=== PATIENT | male | born 1955 | race Caucasian/White ===

== ENCOUNTER 2016-08-26 15:33 | Inpatient (IN) | payer OTHER ==
[~2016-08-26] VITALS: Ht 177.8 cm; Wt 66.0 kg
[2016-08-26] VITALS (14 sets, daily range): BP systolic 90–213; BP diastolic 74–120; PULSE 78–107; RESP 16–18; TEMP 97.9–98.2; O2SAT 93–100
--- NOTE | 2016-08-26 15:56 | RADRPT ---
EXAM DATE/TIME: 08/26/2016 15:41 [facility] COMPARISON: No previous studies available for comparison. INDICATIONS : Stroke alert; right sided weakness. RADIATION DOSE: 56.35 CTDIvol (mGy) This report was called by Dr. Zaldivar to Dr. Galicia at 1552 hrs. MEDICAL HISTORY : Non-responsive. SURGICAL HISTORY : Non-responsive. ENCOUNTER: Initial ACUITY: 1 day PAIN SCALE: Non-responsive LOCATION: cranial TECHNIQUE: Multiple contiguous axial images were obtained of the head. Using automated exposure control and adj ustment of the mA and/or kV according to patient size, radiation dose was kept as low as reasonably a chievable to obtain optimal diagnostic quality images. FINDINGS: There is a large high density acute intraparenchymal hemorrhage centered in the left basal gangl ia measuring up to 3.4 x 3.2 cm in diameter. There is extension into the adjacent left lateral ventri antony. The high density hemorrhage fills the majority of the left lateral ventricle and there is surrou nding edema in these regions. There is mild mass effect and midline shift to the right of approximate ly 5 mm. Periventricular white matter lucencies are present. The posterior fossa and brainstem are in tact. There is mild asymmetry at the level of the suprasellar cisterns. The coastal thickening is not ed in the ethmoidal air cells bilaterally. The bone windows are otherwise unremarkable. CONCLUSION: 1. Large intraparenchymal hemorrhage in the left basal ganglia with extension into left lateral ventr icle. 2. Surrounding edema and mild midline shift to the right. Frederick Zaldivar MD on August 26, 2016 at 15:50 Board Certified Radiologist. This report was verified electronically.
[2016-08-26] MEDS ORDERED: niCARdipine INJ 25 MG in SODIUM CHLOR 0.9% 250 ML INJ 250 ML IV ONE (16:00)
[2016-08-26] MEDS ORDERED: SUCCINYLCHOLINE CHLORIDE 200 MG/10 ML VIAL IV PUSH ONE (16:00)
[2016-08-26] MEDS ORDERED: ETOMIDATE 20 MG/10 ML VIAL IV PUSH ONE (16:00)
[2016-08-26] MEDS ORDERED: MANNITOL INJ 250 ML IV ONE (16:00)
[2016-08-26 16:04] LABS: I-STAT POTASSIUM 2.8 MMOL/L (3.5-4.9)
[2016-08-26 16:08] LABS: AUTOMATED NEUTROPHIL # 6.3 TH/MM3 (1.8-7.7); BASOPHIL # 0.1 TH/MM3 (0-0.2); BASOPHIL % 0.6 % (0.0-2.0); EOSINOPHIL # 0.1 TH/MM3 (0-0.4); EOSINOPHIL % 0.7 % (0.0-4.0); HEMATOCRIT 40.6 % (39.0-51.0); HEMO FLAGS DIFF FINAL; LYMPH % 20.1 % (9.0-44.0); LYMPHOCYTE # 1.8 TH/MM3 (1.0-4.8); MEAN CELL VOLUME 92.2 FL (80.0-100.0); MEAN CORPUSCULAR HEMOGLOBIN 32.9 PG (27.0-34.0); MEAN CORPUSCULAR HGB CONC 35.7 % (32.0-36.0); MONO % 6.8 % (0.0-8.0); NEUT % 71.8 % (16.0-70.0); PLATELET COUNT 164 TH/MM3 (150-450); RED CELL DISTRIBUTION WIDTH 12.7 % (11.6-17.2); WHITE BLOOD COUNT 8.8 TH/MM3 (4.0-11.0)
[2016-08-26 16:10] LABS: APTT (PATIENT) 23.4 SEC (24.3-30.1)
[2016-08-26] MEDS: PROPOFOL 1000 MG/100 ML INJ 100 ML ONE ×2 (16:18→17:12)
--- NOTE | 2016-08-26 16:47 | RADRPT ---
EXAM DATE/TIME: 08/26/2016 14:37 [facility] COMPARISON: No previous studies available for comparison. INDICATIONS : Post intubation MEDICAL HISTORY : stroke SURGICAL HISTORY : unobtainable ENCOUNTER: Initial ACUITY: 1 day PAIN SCORE: Non-responsive. LOCATION: Bilateral chest FINDINGS: A single AP supine view of the chest was obtained and demonstrates an endotracheal tube in place with the tip roughly 5 cm above the chela. The study is Midinspiratory crowding of the lung vasculature and no infiltrate or effusion. The heart size is within normal limits. The bony thorax is intact. The re are multiple overlying electrocardiogram leads. CONCLUSION: 1. Status post intubation with the endotracheal tube tip approximately 5 cm above the chela. 2. Midinspiratory study with crowding of the lung vasculature. Frederick Zaldivar MD on August 26, 2016 at 16:44 Board Certified Radiologist. This report was verified electronically.
--- NOTE | 2016-08-26 16:48 | PD ---
HPI Chief Complaint: Stroke Alert Time Seen by Provider: 15:43 Travel History International Travel<30 days: No Contact w/Intl Traveler<30days: No Traveled to known affect area: No History of Present Illness HPI Middle age male presents as stroke alert with right sided weakness and facial droop 1 hour prior to arrival. Pt was unable to move right upper or lower extremity and with dysarthria. NIH stroke scale was 22. Pt was very hypertensive with BP of 175/118. Pt was given aspirin 162mg PO by his boss prior to arrival. Unable to obtain any further history. PFSH Past Medical History Diminished Hearing: No Social History Alcohol Use: No Tobacco Use: No Substance Use: No Allergies-Medications (Allergen,Severity, Reaction): Coded Allergies: Iodinated Contrast Media (Verified Allergy, Unknown, syncopal episodes, 08/27/16) Review of Systems ROS Limitations: Altered Mental Status Physical Exam Narrative GENERAL: Middle age male in moderate distress. SKIN: Warm and dry. HEAD: Atraumatic. Normocephalic. EYES: Pupils equal and round. No scleral icterus. No injection or drainage. ENT: No nasal bleeding or discharge. Mucous membranes pink and moist. NECK: Trachea midline. No JVD. CARDIOVASCULAR: Regular rate and rhythm. No murmur appreciated. RESPIRATORY: No accessory muscle use. Clear to auscultation. Breath sounds equal bilaterally. GASTROINTESTINAL: Abdomen soft, non-tender, nondistended. Hepatic and splenic margins not palpable. MUSCULOSKELETAL: No obvious deformities. No clubbing. No cyanosis. No edema. NEUROLOGICAL: Awake and following command. NIH stroke 22. Severe dysarthria. Unable to move right upper and lower extremity. Decreased muscle strength in left lower extremity. Data Data Last Documented VS Vital Signs Date Time Temp Pulse Resp B/P Pulse Ox O2 Delivery O2 Flow Rate FiO2 08/26/16 16:49 92 213/120 93 Nasal Cannula 3 08/26/16 16:15 50 08/26/16 16:13 98.2 08/26/16 15:38 18 Orders Diet Npo (08/26/16 Dinner) Activity Bed Rest (08/26/16 ) Electrocardiogram (08/26/16 ) I-Stat Creatinine (08/26/16 15:43) I-Stat Profile (08/26/16 15:43) Prothrombin Time / Inr (Pt) (08/26/16 15:43) Act Partial Throm Time (Ptt) (08/26/16 15:43) Complete Blood Count With Diff (08/26/16 15:43) Creatine Kinase (Cpk) (08/26/16 15:43) Troponin I (08/26/16 15:43) Ua Includes Microscopic (08/26/16 15:43) Type And Screen (08/26/16 15:43) Ct Brain W/O Iv Contrast(Rout) (08/26/16 ) Blood Glucose (08/26/16 15:43) Ecg Monitoring (08/26/16 15:43) Neuro Checks Q2HX12,Q4H (08/26/16 15:43) Nursing Bedside Swallow Assess .ONCE (08/26/16 15:43) Iv Access Insert/Monitor (08/26/16 15:43) NPO (08/26/16 15:43) Oximetry (08/26/16 15:43) Oxygen Administration (08/26/16 15:43) Resp Oxygen Simeon C Titrat 1-4 L (08/26/16 15:43) Cath For Specimen (08/26/16 15:43) Etomidate Inj (Amidate Inj) (08/26/16 16:00) Succinylcholine Inj (Quelicin Inj) (08/26/16 16:00) Nicardipine Inj (Cardene Inj) (08/26/16 16:00) Mannitol Inj (Osmitrol Inj) (08/26/16 16:00) Propofol 1000 Mg/100 Ml Inj (Diprivan 10 (08/26/16 16:18) Chest, Single Ap (08/26/16 ) Propofol 1000 Mg/100 Ml Inj (Diprivan 10 (08/26/16 16:30) Potassium Chlor 20 Meq Premix (Kcl 20 Me (08/26/16 17:15) Potassium Chloride (Kcl) (08/26/16 17:15) Evelyn-Gastric Tube Insert/Mon (08/26/16 17:03) Admit Order (Ed Use Only) (08/26/16 17:31) Consult Neurosurgery (08/26/16 ) Labs Laboratory Tests Test 08/26/16 08/26/16 08/26/16 15:38 15:48 16:44 White Blood Count 8.8 TH/MM3 Red Blood Count 4.40 MIL/MM3 Hemoglobin 14.5 GM/DL Bedside Hemoglobin 13.9 G/DL Hematocrit 40.6 % Bedside Hematocrit 41.0 % Mean Corpuscular Volume 92.2 FL Mean Corpuscular Hemoglobin 32.9 PG Mean Corpuscular Hemoglobin 35.7 % Concent Red Cell Distribution Width 12.7 % Platelet Count 164 TH/MM3 Mean Platelet Volume 10.9 FL Neutrophils (%) (Auto) 71.8 % Lymphocytes (%) (Auto) 20.1 % Monocytes (%) (Auto) 6.8 % Eosinophils (%) (Auto) 0.7 % Basophils (%) (Auto) 0.6 % Neutrophils # (Auto) 6.3 TH/MM3 Lymphocytes # (Auto) 1.8 TH/MM3 Monocytes # (Auto) 0.6 TH/MM3 Eosinophils # (Auto) 0.1 TH/MM3 Basophils # (Auto) 0.1 TH/MM3 CBC Comment DIFF FINAL Differential Comment Prothrombin Time 11.0 SEC Prothromb Time International 1.0 RATIO Ratio Activated Partial 23.4 SEC Thromboplast Time Bedside Sodium 143 MMOL/L Sodium Level 141 MEQ/L Bedside Potassium 2.8 MMOL/L Potassium Level 2.8 MEQ/L Bedside Chloride 106 MMOL/L Chloride Level 106 MEQ/L Carbon Dioxide Level 24.4 MEQ/L Anion Gap 11 MEQ/L Bedside Blood Urea Nitrogen 17 MG/DL Blood Urea Nitrogen 17 MG/DL Creatinine 1.01 MG/DL Bedside Creatinine 1.0 MG/DL Estimat Glomerular Filtration 64 ML/MIN Rate Bedside Glucose 114 MG/DL Random Glucose 112 MG/DL Calcium Level 9.0 MG/DL Total Creatine Kinase 208 U/L Troponin I 0.03 NG/ML Blood Type A POSITIVE Antibody Screen NEGATIVE Urine Color LIGHT-YELLOW Urine Turbidity CLEAR Urine pH 7.5 Urine Specific [place] 1.012 Urine Protein 30 mg/dL Urine Glucose (UA) TRACE mg/dL Urine Ketones 10 mg/dL Urine Occult Blood TRACE Urine Nitrite NEG Urine Bilirubin NEG Urine Urobilinogen LESS THAN 2.0 MG/DL Urine Leukocyte Esterase NEG Urine RBC 2 /hpf Urine WBC LESS THAN 1 /hpf Microscopic Urinalysis Comment Urine Opiates Screen NEG Urine Barbiturates Screen NEG Urine Amphetamines Screen NEG Urine Benzodiazepines Screen NEG Urine Cocaine Screen NEG Urine Cannabinoids Screen NEG MDM Medical Decision Making Medical Screen Exam Complete: Yes Emergency Medical Condition: Yes Interpretation(s) EKG: NSR 84bpm. LAD. Q wave III, aVF. LVH. No ST segment elevation or depression. Differential Diagnosis ICH vs. CVA vs. hypertensive emergency Narrative Course Middle age male with HTN presents with hypertensive bleed. CT brain showed large intraparenchymal hemorrhage in left basal ganglia with extension into left lateral ventricle. Surrounding edema and mild midline shift to the right. Discuss with neurosurgeon Dr. Croft who states there is no neurosurgical intervention and to admit to ICU. Pt intubated to protect airway with etomidate and succinylcholine. There was a complication with dislodging a tooth which was communicated to family and latin professor. CXR showed ET tube 5cm above chela. Pt place on propofol drip and nicardipine drip. BP improving. Pt also given mannitol. Labs reviewed, no leukocytosis. K: 2.8, replaced with 20mEq KCl. Also with oral KCl through OG tube. Troponin 0.03. Glucose 114. Discussed with pt's daughter who is next of kin but living in [place] Mrs. Haritha Ruiz [phone] and she is the health proxy. Also discussed with Haritha's aunt Mrs. Ana Paula Ruiz [phone] who is on her way here from [facility]. Confirmed with daughter that her mother is not in this country at this time. Pt's name is Rafy Minor. Discussed with Dr. Melton who states pt will be admitted to Dr. Cameron. Critical Care Narrative Aggregate critical care time was 50 minutes. Time to perform other separately billable procedures was not included in the critical care time. My time did not include minutes spent treating any other patients simultaneously or on activities that did not directly contribute to the patient's treatment. The services I provided to this patient were to treat and/or prevent clinically significant deterioration that could result in: cardiovascular collapse or . I provided critical care services requiring my management, as noted below: Chart data review, documentation time, medication orders and management, vital sign assessments/reviewing monitor data, ordering and reviewing lab tests, ordering and interpreting/reviewing x-rays and diagnostic studies, care of the patient and discussion of the patient with the admitting physicians. Procedures Procedure Narrative The patient was put in optimal position for the procedure. Rapid sequence intubation was initiated by me using 20 milligrams of etomidate IV and 100 milligrams of succinylcholine IV. The patient was intubated with a 7.5 cuffed endotracheal tube. Tube placement was confirmed by visualization of the tube and balloon passing through the cords, capnometry and subsequent chest x-ray. Breath sounds were equal and well aerated bilaterally postintubation. No breath sounds over stomach. Patient tolerated procedure well. There was a complication with the intubation. Bridge was removed. There was a tooth in right upper region that broke off and was retrieved via Wilfredo forceps. There was some bleeding in the tooth socket. Informed pt's daughter and her aunt about the complication via telephone. Diagnosis Primary Impression: ICH (intracerebral hemorrhage) Qualified Code: I61.0 - Nontraumatic subcortical hemorrhage of left cerebral hemisphere Admitting Information Admitting Physician Requests: Margarita De La Rosa DO Aug 26, 2016 16:48
[2016-08-26 17:09] LABS: BLOOD, URINE TRACE (NEG); GLUCOSE,URINE TRACE mg/dL (NEG); KETONE, URINE 10 mg/dL (NEG); NITRITE,URINE NEG (NEG); PH, URINE 7.5 (5.0-8.5); URINE COLOR LIGHT-YELLOW (YELLW/STRAW)
[2016-08-26] MEDS ORDERED: POTASSIUM CHLOR 20 MEQ PREMIX 100 ML IV ONE (17:15)
[2016-08-26] MEDS ORDERED: POTASSIUM CHLORIDE 20 MEQ CONTROLLED RELEASE TAB PO ONE (17:15)
[2016-08-26] MEDS: PROPOFOL 1000 MG/100 ML INJ 100 ML IV SCH ×2 (17:17→19:05)
[2016-08-26 17:59] LABS: BLOOD GAS BASE EXCESS -0.3 mmol/L (-2-2); BLOOD GAS CARBOXYHEMOGLOBIN 2.2 % (0-4); BLOOD GAS HCO3 24 mmol/L (22-26); BLOOD GAS METHEMOGLOBIN 2.1 % (0-2); BLOOD GAS O2 HGB SATURATION 94 % (90-100); BLOOD GAS OXYGEN CONTENT 19.2 Vol % (12.0-20.0); BLOOD GAS PCO2 37 mmHg (38-42); BLOOD GAS PO2 109 mmHG (61-120); BLOOD GAS TOTAL HGB 14.5 G/DL (12.0-16.0); CRITICAL VALUE NO; DRAW SITE RT RADIAL; FIO2 50 %; NUMBER OF ARTERIAL PUNCTURES 1; OXYGEN DEVICE VENTILATOR; STAT YES; TEMP CORR TO 98.6; VENT SETTINGS AC500/16/+5PEEP
[2016-08-26] MEDS ORDERED: LABETALOL HCL 100 MG/20 ML VIAL IV PRN (18:45)
[2016-08-26] MEDS ORDERED: MAGNESIUM SULFATE INJ 4 GM in SODIUM CHLORIDE 0.9% INJ 92 ML IV PRN (18:45)
[2016-08-26] MEDS ORDERED: CHLORHEXIDINE GLUCONATE 2 % 1 PACK (2 CLOTHS) TOP PRN (18:45)
[2016-08-26] MEDS ORDERED: MAGNESIUM OXIDE 400 MG TAB PO PRN (18:45)
[2016-08-26] MEDS ORDERED: POTASSIUM CHLOR 40 MEQ PREMIX 100 ML IV PRN (18:45)
[2016-08-26] MEDS ORDERED: SODIUM CHLORIDE 0.9% FLUSH 5 ML FLUSH IVF PRN (18:45)
[2016-08-26] MEDS ORDERED: POTASSIUM PHOSPHATE MONOBASIC 500 MG TAB PO PRN (18:45)
[2016-08-26] MEDS ORDERED: MAGNESIUM SULFATE INJ 2 GM in SODIUM CHLORIDE 0.9% INJ 96 ML IV PRN (18:45)
[2016-08-26] MEDS ORDERED: GLUCAGON 1 MG/ML VIAL OTHER PRN (18:45)
[2016-08-26] MEDS ORDERED: cloNIDine HCL 0.1 MG TAB PO PRN (18:45)
[2016-08-26] MEDS ORDERED: POTASSIUM PHOSPHATE MONOBASIC 500 MG TAB PO/TUBE PRN (18:45)
[2016-08-26] MEDS ORDERED: SODIUM PHOSPHATE INJ 30 MMOL in SODIUM CHLOR 0.9% 250 ML INJ 240 ML IV PRN (18:45)
[2016-08-26] MEDS ORDERED: MISCELLANEOUS NURSING INFORMATION XX SCH (18:45)
[2016-08-26] MEDS ORDERED: SODIUM CHLORIDE 0.9% FLUSH 5 ML FLUSH IV FLUSH PRN (18:45)
[2016-08-26] MEDS ORDERED: POTASSIUM CL 40 MEQ/30 ML LIQ UDC PO/TUBE PRN (18:45)
[2016-08-26] MEDS ORDERED: DEXTROSE 50% IN WATER 50 ML VIAL(D50) IV PUSH PRN (18:45)
[2016-08-26] MEDS ORDERED: MIDAZOLAM 100 MG/ML INJ 100 ML IV SCH (18:45)
[2016-08-26] MEDS ORDERED: ONDANSETRON HCL 4 MG/2 ML VIAL IV PRN (18:45)
--- NOTE | 2016-08-26 19:04 | HHI.HP ---
[facility] Service Critical Care Medicine Primary Care Physician Admission Diagnosis Left basal ganglia bleed Diagnosis: (1) ICH (intracerebral hemorrhage) Diagnosis: Principal (2) Hypertensive emergency Diagnosis: Principal (3) Hypokalemia Diagnosis: Principal (4) Respiratory failure Diagnosis: Principal Chief Complaint: Left basal ganglia intraparenchymal hemorrhage/right upper and lower extremity weakness Travel History International Travel<30 Days: No Contact w/Intl Traveler <30 Da: No Traveled to Known Affected Are: No History of Present Illness This is a middle-aged male. Date of admission 08/26/2016. Past medical history is unknown. His real name is Rafy Ruiz. Haritha Ruiz [phone] is the health proxy. Per ED report, patient was acute onset 1 hour prior to admission of right upper and lower extremity weakness and dysarthria. Upon presentation to the ED, patient was quite hypertensive and had decreased responsiveness. Patient was intubated by ED physician. [address] head revealed a left intraparenchymal hemorrhage/basal ganglia with extension to the lateral ventricle with a 5 mm shift to the right. Neurosurgery was consulted/Dr. Croft no intervention at present time. Your estimate the patient. Laboratories reveal potassium 2.8. Currently on Cardene drip at 15 mg an hour. Review of Systems ROS Limitations: Intubated Past Family Social History Allergies: Coded Allergies: UNOBTAINABLE (Unverified , 08/26/16) Past Medical History Unknown Past Surgical History Unknown Reported Medications Unknown Active Ordered Medications Reviewed in EMR Family History Unknown Social History Unknown Physical Exam Vital Signs Vital Signs Date Time Temp Pulse Resp B/P Pulse Ox O2 Delivery O2 Flow Rate FiO2 08/26/16 18:58 100 50 08/26/16 18:47 83 142/74 100 Ventilator 08/26/16 18:06 78 16 167/92 98 Ventilator 08/26/16 16:49 92 213/120 93 Nasal Cannula 3 08/26/16 16:15 100 50 08/26/16 16:13 98.2 107 90/112 100 Nasal Cannula 3 08/26/16 16:01 85 190/112 08/26/16 16:01 100 Nasal Cannula 3 08/26/16 15:38 98.0 87 18 175/118 99 Physical Exam GENERAL: Middle-aged male, critically ill currently orotracheally intubated SKIN: Warm and dry. HEAD: Atraumatic. Normocephalic. EYES: Pupils equal and round about 2 mm bilaterally and reactive. No scleral icterus. No injection or drainage. ENT: No nasal bleeding or discharge. Mucous membranes pink and moist. NECK: Trachea midline. No JVD. CARDIOVASCULAR: Regular rate and rhythm. S1, S2. No S4. No murmur RESPIRATORY: Clear to auscultation. Breath sounds equal bilaterally. GASTROINTESTINAL: Abdomen soft, non-tender, nondistended. Active bowel sounds are present MUSCULOSKELETAL: Extremities without difficulty peripheral edema. No obvious deformities. NEUROLOGICAL: Moving left upper and lower extremity spontaneous. Positive gag. Positive corneal reflex. Head is turned towards left. Right-sided flaccid. Laboratory Laboratory Tests Test 08/26/16 08/26/16 08/26/16 08/26/16 15:38 15:48 16:44 17:49 White Blood Count 8.8 Red Blood Count 4.40 Hemoglobin 14.5 Bedside Hemoglobin 13.9 Hematocrit 40.6 Bedside Hematocrit 41.0 Mean Corpuscular Volume 92.2 Mean Corpuscular Hemoglobin 32.9 Mean Corpuscular Hemoglobin 35.7 Concent Red Cell Distribution Width 12.7 Platelet Count 164 Mean Platelet Volume 10.9 Neutrophils (%) (Auto) 71.8 Lymphocytes (%) (Auto) 20.1 Monocytes (%) (Auto) 6.8 Eosinophils (%) (Auto) 0.7 Basophils (%) (Auto) 0.6 Neutrophils # (Auto) 6.3 Lymphocytes # (Auto) 1.8 Monocytes # (Auto) 0.6 Eosinophils # (Auto) 0.1 Basophils # (Auto) 0.1 CBC Comment DIFF FINAL Differential Comment Prothrombin Time 11.0 Prothromb Time International 1.0 Ratio Activated Partial 23.4 Thromboplast Time Bedside Sodium 143 Bedside Potassium 2.8 Bedside Chloride 106 Bedside Blood Urea Nitrogen 17 Bedside Creatinine 1.0 Bedside Glucose 114 Total Creatine Kinase 208 Troponin I 0.03 Blood Type A POSITIVE Antibody Screen NEGATIVE Urine Color LIGHT-YELLOW Urine Turbidity CLEAR Urine pH 7.5 Urine Specific [place] 1.012 Urine Protein 30 Urine Glucose (UA) TRACE Urine Ketones 10 Urine Occult Blood TRACE Urine Nitrite NEG Urine Bilirubin NEG Urine Urobilinogen LESS THAN 2.0 Urine Leukocyte Esterase NEG Urine RBC 2 Urine WBC LESS THAN 1 Microscopic Urinalysis Comment Blood Gas Puncture Site RT RADIAL Blood Gas Patient Temperature 98.6 Blood Gas HCO3 24 Blood Gas Base Excess -0.3 Blood Gas Oxygen Saturation 94 Arterial Blood pH 7.42 Arterial Blood Partial 37 Pressure CO2 Arterial Blood Partial 109 Pressure O2 Arterial Blood Oxygen Content 19.2 Arterial Blood 2.2 Carboxyhemoglobin Arterial Blood Methemoglobin 2.1 Blood Gas Hemoglobin 14.5 Oxygen Delivery Device VENTILATOR Blood Gas Ventilator Setting AC500/16/+5PEEP Blood Gas Inspired Oxygen 50 Result Diagram: 08/26/16 1538 Imaging Last Impressions Head CT 08/26/16 0000 Signed Impressions: Service Date/Time: Friday, August 26, 2016 15:41 - CONCLUSION: 1. Large intraparenchymal hemorrhage in the left basal ganglia with extension into left lateral ventricle. 2. Surrounding edema and mild midline shift to the right. Frederick Zaldivar MD Chest X-Ray 08/26/16 0000 Signed Impressions: Service Date/Time: Friday, August 26, 2016 14:37 - CONCLUSION: 1. Status post intubation with the endotracheal tube tip approximately 5 cm above the chela. 2. Midinspiratory study with crowding of the lung vasculature. Frederick Zaldivar MD Assessment and Plan Assessment and Plan Neuro/Psych: Left basal ganglia intraparenchymal hemorrhage Right frontal twist drill hole ventriculostomy placement day #0 CT head revealed left basal ganglia intraparenchymal hemorrhage 3.42 cm with eccentric left lateral ventricle. 5 mm to the right. The thyroid by neurosurgery/Dr. Croft. Right frontal twist drill hole ventriculostomy at -10 cm H2O. No upper. Recheck CT in AM. Neuro checks per protocol Goal systolic blood pressure less than 140 on Cardene drip 3% saline at 30 cc an hour. Goal 150-155 Goal end tidal CO2 30-35 Keppra 500 IV every 12 hours each prophylaxis 7 days ICP currently 12 CV: Hypertensive emergency Currently on Cardene drip at15 milligrams an hour hour. Resp: [facility] Ventilator bundle As needed bronchodilator therapy Spontaneous breathing trials when clinically indicated Follow-up chest x-ray/ABG GI: Nothing by mouth status Protonix for GI prophylaxis Colace/as needed Senokot for bowel regimen : Kern will be placed for accurate I's nose any critically ill patient Endo: Sliding-scale insulin with Accu-Cheks every 4 hours to maintain euglycemia. Low regimen Renal: Monitor renal function closely Heme: CBC/cordis within normal lives. Recheck in a.m. ID: Monitor for infection FEN: Hypokalemia Replace per ICU electrolyte protocol. MSK: PT evaluate and treat Access - Right IJ CVL day #1 Prophylaxis - GI - Protonix - DVT - SCDs/pharmacological prophylaxis contraindicated with intracranial hemorrhage Critical Care: The total critical care time was 75 minutes. Time to perform other separately billable procedures was not included in the critical care time. Code Status Full code Discussed Condition With ED physician Dr. Galicia. Care plan discussed all questions answered. Dr. Croft at bedside. Problem Qualifiers (1) ICH (intracerebral hemorrhage): Qualified Code: I61.0 - Nontraumatic subcortical hemorrhage of left cerebral hemisphere (2) Respiratory failure: Qualified Code: J96.00 - Acute respiratory failure, unspecified whether with hypoxia or hypercapnia Ellis Bright MD Aug 26, 2016 19:04
--- NOTE | 2016-08-26 19:18 | RADRPT ---
EXAM DATE/TIME: 08/26/2016 16:46 [facility] COMPARISON: CHEST SINGLE AP, August 26, 2016, 14:37. INDICATIONS : Evaluate central line placement. MEDICAL HISTORY : Unobtainable. SURGICAL HISTORY : Unobtainable. ENCOUNTER: Initial ACUITY: 1 day PAIN SCORE: Non-responsive. LOCATION: chest FINDINGS: A single view of the chest demonstrates endotracheal tube in satisfactory position. NG enters stomach . A right central line tip is in superior vena cava. Subsegmental airspace disease in the lungs espec ially the perihilar regions. No pneumothorax. No effusion. CONCLUSION: 1. Subsegmental airspace disease in the perihilar regions and lung bases. Endotracheal tube, nasogast katiana tube and right central line in satisfactory position. Bishop Fulton MD on August 26, 2016 at 19:14 Board Certified Radiologist. This report was verified electronically.
[2016-08-26] MEDS ORDERED: MORPHINE SULFATE 8 MG/ML INJ ONE (19:34)
[2016-08-26] MEDS ORDERED: MIDAZOLAM HCL 5 MG/ML VIAL (1 ML) ONE (19:34)
[2016-08-26] MEDS ORDERED: MORPHINE SULFATE 4 MG/ML INJ IV PUSH ONE (19:45)
[2016-08-26] MEDS ORDERED: MIDAZOLAM HCL 5 MG/5 ML VIAL IV PUSH ONE (19:45)
[2016-08-26 19:49] LABS: AMPHETAMINE, URINE NEG (NEG); BARBITURATES, URINE NEG (NEG); COCAINE, URINE NEG (NEG)
--- NOTE | 2016-08-26 19:54 | MB ---
cc: LIZETTE MILES M.D. DATE OF CONSULTATION 08/26/2016 REASON FOR CONSULTATION Left basal ganglia hemorrhage. HISTORY OF PRESENT ILLNESS This is a middle-aged gentleman who apparently was brought to [facility] Emergency Room with acute onset of right-sided weakness and slurred speech. He was hypertensive on presentation and had a declining neurologic examination requiring intubation for airway control with ventilator support. CT scan of the head obtained reveals a basal ganglia hemorrhage on the left side measuring about 3.4 cm in diameter. There is also extension of the hemorrhage into the left lateral ventricle. No hydrocephalus is noted, although left temporal horn is dilated. Currently there is no friends or family members here to relate a history and his identity is unknown. PAST MEDICAL HISTORY Unknown MEDICATIONS Unknown ALLERGIES Unknown SOCIAL HISTORY Unobtainable. REVIEW OF SYSTEMS Unobtainable. The patient is intubated and obtunded. LABORATORY FINDINGS White blood cell count 8.8, hemoglobin 14.5, platelet count 164. PT 11.0. INR 1.0. PTT 23.4. Sodium 143, potassium 2.8, BUN 17, creatinine 1.0, glucose 114. PHYSICAL EXAMINATION VITAL SIGNS: Temperature 98.2, pulse is 83, respiratory rate 16, blood pressure 142/74. He is on Cardene and propofol drips. HEAD: No Chakraborty's or raccoon sign. NECK: Supple. CHEST: Clear bilaterally. HEART: Regular rate rhythm, normal S1-S2. ABDOMEN: Soft, nontender. Extremities: No cyanosis or edema. NEUROLOGICAL: He is intubated. He does not open his eyes. Pupils are 3 mm and sluggish bilaterally. He moves left side spontaneously although does not follow commands. He has a dense right hemiparesis. [place] coma score is 7. IMPRESSION 1. 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 This is a characteristic of a hypertensive bleed. 2. Unregulated hypertension. 3. Respiratory failure secondary to the intracranial hemorrhage. PLAN The patient will be admitted to surgical intensive care unit for close neurologic and hemodynamic monitoring along with hypertension regulation. He head of bed will be kept elevated 30 degrees. Sequential compression devices were used for DVT prophylaxis along with gastrointestinal stress ulcer prophylaxis. We will place a ventriculostomy also, since the high risk for developing worsening hydrocephalus given the intraventricular hemorrhage. MRI and MR angiogram of the brain will also be obtained to rule out any underlying vascular abnormality. We will attempt to locate the family to obtain further history and provide update on the patient's critical condition. MD GELACIO Del Castillo/DILLON /7:22 PM 7:42 PM
[2016-08-26] MEDS: INSULIN NovoLIN REGULAR SUPPLEMENTAL SCALE SQ SCH ×2 (20:00→23:55)
--- NOTE | 2016-08-26 20:03 | PD.OP ---
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 Lead Tinner(s): None Operation and Findings: Procedure was undertaken at the bedside in the intensive care unit using sterile technique. No family members are available and this procedure is undertaken keeping the patient's best interest into account. Following continuation of Diprivan drip along with immunization of a 4 mg of morphine and 5 mg Versed with oxygen saturation and hemodynamic monitoring in the intensive care unit, the right frontal region was shaved and the prep with chlor prep and sterilely draped. Using landmarks of 11 cm behind the nasion and 3 cm to the right of the midline, a 1 cm scalp incision was made after infiltrating with 1% lidocaine with epinephrine solution. With a handheld drill a twist drill hole was made in the underlying dura penetrated with a blunt probe. The bactiseal ventriculostomy catheter was then passed into the lateral ventricle at a depth of 7 cm clear CSF encountered with an opening pressure around 8 cm H20. The distal end of the ventriculostomy was then tunneled under the scalp with a trocar and secured to the exit site with a 3-0 nylon thigh and connected to a drainage bag. Scalp incision site was approximated with 3-0 nylon interrupted stitches A sterile dressing was applied. There were no complications and blood loss was less than 5 cc. Jeff Croft MD Aug 26, 2016 20:03
[2016-08-26 20:08] LABS: BICARBONATE 24.4 MEQ/L (21.0-32.0)
[2016-08-26 20:14] LABS: POTASSIUM 2.8 MEQ/L (3.5-5.1)
[2016-08-26] MEDS: SODIUM CHLORIDE 0.9% FLUSH 5 ML FLUSH IV FLUSH SCH (21:00)
[2016-08-26 21:10] LABS: MEAN CORPUSCULAR HGB CONC 36.7 % (32.0-36.0)
[2016-08-26] MEDS: levETIRAcetam INJ 500 MG in SODIUM CHLORIDE 0.9% INJ 100 ML IV SCH (21:35)
[2016-08-26] MEDS: fentaNYL DRIP 250 ML IV SCH (21:35)
[2016-08-26] MEDS: SODIUM CHLOR 0.9% 1000 ML INJ 1,000 ML IV SCH (21:36)
[2016-08-26] MEDS: 3% SALINE INJ 500 ML IV SCH (21:36)
[2016-08-26] MEDS: CHLORHEXIDINE 0.12% (ORAL KIT) 15 ML CUP MT SCH (21:37)
[2016-08-26] MEDS: DOCUSATE SODIUM 100 MG CAP PO SCH (21:38)
[2016-08-26 23:42] LABS: BLOOD GAS BASE EXCESS -1.1 mmol/L (-2-2); BLOOD GAS CARBOXYHEMOGLOBIN 1.3 % (0-4); BLOOD GAS HCO3 22 mmol/L (22-26); BLOOD GAS METHEMOGLOBIN 0.8 % (0-2); BLOOD GAS O2 HGB SATURATION 98 % (90-100); BLOOD GAS OXYGEN CONTENT 19.7 Vol % (12.0-20.0); BLOOD GAS PCO2 27 mmHg (38-42); BLOOD GAS PO2 159 mmHg (61-120); BLOOD GAS TOTAL HGB 14.2 G/DL (12.0-16.0); TEMP CORR TO 98.6
[2016-08-26 23:43] LABS: CRITICAL VALUE YES; DRAW SITE ART LINE; FIO2 45 %; NUMBER OF ARTERIAL PUNCTURES 0; OXYGEN DEVICE VENTILATOR; STAT YES; ULNAR PULSE PRESENT
[2016-08-27] VITALS (16 sets, daily range): BP systolic 127–169; BP diastolic 62–82; PULSE 65–88; RESP 12–13; TEMP 98–98.7; O2SAT 96–100
[2016-08-27 00:19] LABS: MAGNESIUM 2.2 MG/DL (1.5-2.5); POTASSIUM 3.1 MEQ/L (3.5-5.1); SODIUM (NA) 141 MEQ/L (136-145)
[2016-08-27] MEDS: niCARdipine INJ 25 MG in SODIUM CHLOR 0.9% 250 ML INJ 250 ML IV SCH ×3 (01:09→23:32)
[2016-08-27] MEDS: POTASSIUM CHLOR 40 MEQ PREMIX 100 ML IV PRN (01:11)
[2016-08-27] MEDS: POTASSIUM PHOSPHATE INJ 30 MMOL in SODIUM CHLOR 0.9% 250 ML INJ 250 ML IV PRN ×2 (03:01→23:57)
[2016-08-27] MEDS: INSULIN NovoLIN REGULAR SUPPLEMENTAL SCALE SQ SCH ×4 (03:20→20:00)
[2016-08-27] MEDS: PROPOFOL 1000 MG/100 ML INJ 100 ML IV SCH ×2 (03:46→20:50)
[2016-08-27 04:11] LABS: AUTOMATED NEUTROPHIL # 7.3 TH/MM3 (1.8-7.7); BASOPHIL % 0.3 % (0.0-2.0); EOSINOPHIL % 0.2 % (0.0-4.0); LYMPH % 11.7 % (9.0-44.0); LYMPHOCYTE # 1.1 TH/MM3 (1.0-4.8); MEAN CELL VOLUME 92.5 FL (80.0-100.0); MEAN CORPUSCULAR HEMOGLOBIN 33.9 PG (27.0-34.0); MONO % 8.7 % (0.0-8.0); NEUT % 79.1 % (16.0-70.0); PLATELET COUNT 143 TH/MM3 (150-450); RED CELL DISTRIBUTION WIDTH 12.9 % (11.6-17.2); WHITE BLOOD COUNT 9.2 TH/MM3 (4.0-11.0)
[2016-08-27 04:14] LABS: HEMO FLAGS AUTO DIFF
[2016-08-27 04:22] LABS: APTT (PATIENT) 25.5 SEC (24.3-30.1); PROTHROMBIN TIME - PATIENT 11.2 SEC (9.8-11.6)
[2016-08-27 04:26] LABS: ANION GAP 9 MEQ/L (5-15); AST (GOT) 32 U/L (15-37); BICARBONATE 22.1 MEQ/L (21.0-32.0); BLOOD UREA NITROGEN 12 MG/DL (7-18); CHLORIDE 115 MEQ/L (98-107); GLOMERULAR FILTRATION RATE 76 ML/MIN (>89); MAGNESIUM 2.4 MG/DL (1.5-2.5); POTASSIUM 3.9 MEQ/L (3.5-5.1); SODIUM (NA) 146 MEQ/L (136-145)
[2016-08-27 04:33] LABS: ALKALINE PHOSPHATASE 67 U/L (45-117); ALT (GPT) 60 U/L (12-78); TOTAL BILIRUBIN ADULT 0.8 MG/DL (0.2-1.0)
[2016-08-27] MEDS: CHLORHEXIDINE GLUCONATE 2 % 1 PACK (2 CLOTHS) TOP SCH (05:02)
--- NOTE | 2016-08-27 06:27 | RADRPT ---
EXAM DATE/TIME: 08/27/2016 05:18 [facility] COMPARISON: CHEST SINGLE AP, August 26, 2016, 16:46. INDICATIONS : Shortness of breath. MEDICAL HISTORY : Stroke. SURGICAL HISTORY : None. ENCOUNTER: Subsequent ACUITY: 2 days PAIN SCORE: Non-responsive. LOCATION: Bilateral chest FINDINGS: Endotracheal tube and right jugular line are again seen. Osseous structures are intact. Lungs are antony ar. Cardiomegaly. NG tube courses beneath the diaphragm. CONCLUSION: Clear lungs. Benny Riojas MD on August 27, 2016 at 6:26 Board Certified Radiologist. This report was verified electronically.
[2016-08-27] MEDS: SODIUM CHLOR 0.9% 1000 ML INJ 1,000 ML IV SCH ×2 (06:38→11:19)
[2016-08-27 07:06] LABS: SCAN/DIFF AUTO DIFF CONFIRMED
[2016-08-27] MEDS: ARTIFICIAL TEARS OPTH SOLN 15 ML BTL EACH EYE SCH ×3 (08:51→20:14)
[2016-08-27] MEDS: PANTOPRAZOLE SODIUM 40 MG VIAL IV SCH (08:52)
[2016-08-27] MEDS: levETIRAcetam INJ 500 MG in SODIUM CHLORIDE 0.9% INJ 100 ML IV SCH ×2 (08:53→20:15)
[2016-08-27] MEDS: SODIUM CHLORIDE 0.9% FLUSH 5 ML FLUSH IV FLUSH SCH ×2 (08:53→20:15)
[2016-08-27] MEDS: SODIUM CHLORIDE 0.9% FLUSH 5 ML FLUSH IVF SCH (08:53)
[2016-08-27] MEDS: CHLORHEXIDINE 0.12% (ORAL KIT) 15 ML CUP MT SCH ×2 (08:54→20:14)
[2016-08-27] MEDS: DOCUSATE SODIUM 100 MG CAP PO SCH ×2 (09:00→20:15)
--- NOTE | 2016-08-27 09:48 | HHI.NSPN ---
(Sergey Melton) History Chief Complaint: Left basal ganglia hemorrhage (Sergey Melton) Interval History This is a middle-aged gentleman who apparently was brought to [facility] Emergency Room with acute onset of right-sided weakness and slurred speech. He was hypertensive on presentation and had a declining neurologic examination requiring intubation for airway control with ventilator support. CT scan of the head obtained reveals a basal ganglia hemorrhage on the left side measuring about 3.4 cm in diameter. There is also extension of the hemorrhage into the left lateral ventricle. No hydrocephalus is noted, although left temporal horn is dilated. Currently there is no friends or family members here to relate a history and his identity is unknown. 08/27/16: Pt sedated on Diprivan. Not opening eyes. Not following commands. Pupils 2mm bilaterally slight reaction bilaterally. (Sergey Melton) System Review Comments Not able to obtain given level of alertness. (Sergey Melton) Exam Results Vital Signs Date Time Temp Pulse Resp B/P Pulse Ox O2 Delivery O2 Flow Rate FiO2 08/27/16 08:12 100 35 08/27/16 08:00 98.7 66 12 127/62 08/26/16 18:47 Ventilator 08/26/16 16:49 3 (Sergey Melton) Physical Examination Resp: CTA bilaterally. Intubated. Pressure controlled rate 12. Peep 5 FiO2 35% Heart: NSR no murmurs. Cardene drip. Abd: Soft positive bs Skin: No cyanosis or erythema. SCDs in place. Muscle: Not following for muscle testing. Neuro: Pt sedated on Diprivan and Fentanyl drips. Pt not opening eyes. Pupils 2mm bilaterally, very slight reaction bilaterally. Not following commands. Ventriculostomy in place at [id number] draining blood tinges CSF at [id number]. Pt on 3% NaCl (Sergey Melton) Lab, Micro, Other Results Laboratory Tests Test 08/26/16 08/26/16 08/26/16 08/26/16 15:38 15:48 16:44 17:49 White Blood Count 8.8 TH/MM3 Red Blood Count 4.40 MIL/MM3 Hemoglobin 14.5 GM/DL Bedside Hemoglobin 13.9 G/DL Hematocrit 40.6 % Bedside Hematocrit 41.0 % Mean Corpuscular Volume 92.2 FL Mean Corpuscular Hemoglobin 32.9 PG Mean Corpuscular Hemoglobin 35.7 % Concent Red Cell Distribution Width 12.7 % Platelet Count 164 TH/MM3 Mean Platelet Volume 10.9 FL Neutrophils (%) (Auto) 71.8 % Lymphocytes (%) (Auto) 20.1 % Monocytes (%) (Auto) 6.8 % Eosinophils (%) (Auto) 0.7 % Basophils (%) (Auto) 0.6 % Neutrophils # (Auto) 6.3 TH/MM3 Lymphocytes # (Auto) 1.8 TH/MM3 Monocytes # (Auto) 0.6 TH/MM3 Eosinophils # (Auto) 0.1 TH/MM3 Basophils # (Auto) 0.1 TH/MM3 CBC Comment DIFF FINAL Differential Comment Prothrombin Time 11.0 SEC Prothromb Time International 1.0 RATIO Ratio Activated Partial 23.4 SEC Thromboplast Time Bedside Sodium 143 MMOL/L Sodium Level 141 MEQ/L Bedside Potassium 2.8 MMOL/L Potassium Level 2.8 MEQ/L Bedside Chloride 106 MMOL/L Chloride Level 106 MEQ/L Carbon Dioxide Level 24.4 MEQ/L Anion Gap 11 MEQ/L Bedside Blood Urea Nitrogen 17 MG/DL Blood Urea Nitrogen 17 MG/DL Creatinine 1.01 MG/DL Bedside Creatinine 1.0 MG/DL Estimat Glomerular Filtration 64 ML/MIN Rate Bedside Glucose 114 MG/DL Random Glucose 112 MG/DL Calcium Level 9.0 MG/DL Total Creatine Kinase 208 U/L Troponin I 0.03 NG/ML Blood Type A POSITIVE Antibody Screen NEGATIVE Urine Color LIGHT-YELLOW Urine Turbidity CLEAR Urine pH 7.5 Urine Specific [place] 1.012 Urine Protein 30 mg/dL Urine Glucose (UA) TRACE mg/dL Urine Ketones 10 mg/dL Urine Occult Blood TRACE Urine Nitrite NEG Urine Bilirubin NEG Urine Urobilinogen LESS THAN 2.0 MG/DL Urine Leukocyte Esterase NEG Urine RBC 2 /hpf Urine WBC LESS THAN 1 /hpf Microscopic Urinalysis Comment Urine Opiates Screen NEG Urine Barbiturates Screen NEG Urine Amphetamines Screen NEG Urine Benzodiazepines Screen NEG Urine Cocaine Screen NEG Urine Cannabinoids Screen NEG Blood Gas Puncture Site RT RADIAL Blood Gas Patient Temperature 98.6 Blood Gas HCO3 24 mmol/L Blood Gas Base Excess -0.3 mmol/L Blood Gas Oxygen Saturation 94 % Arterial Blood pH 7.42 Arterial Blood Partial 37 mmHg Pressure CO2 Arterial Blood Partial 109 mmHG Pressure O2 Arterial Blood Oxygen Content 19.2 Vol % Arterial Blood 2.2 % Carboxyhemoglobin Arterial Blood Methemoglobin 2.1 % Blood Gas Hemoglobin 14.5 G/DL Oxygen Delivery Device VENTILATOR Blood Gas Ventilator Setting AC500/16/+5PEEP Blood Gas Inspired Oxygen 50 % Test 08/26/16 08/26/16 08/26/16 08/27/16 22:55 23:28 23:37 04:00 Nasal Screen MRSA (PCR) NEGATIVE Blood Gas Puncture Site ART LINE Blood Gas Patient Temperature 98.6 Blood Gas HCO3 22 mmol/L Blood Gas Base Excess -1.1 mmol/L Blood Gas Oxygen Saturation 98 % Arterial Blood pH 7.52 Arterial Blood Partial 27 mmHg Pressure CO2 Arterial Blood Partial 159 mmHg Pressure O2 Arterial Blood Oxygen Content 19.7 Vol % Arterial Blood 1.3 % Carboxyhemoglobin Arterial Blood Methemoglobin 0.8 % Blood Gas Hemoglobin 14.2 G/DL Oxygen Delivery Device VENTILATOR Blood Gas Ventilator Setting SEE COMMENT Blood Gas Inspired Oxygen 45 % Sodium Level 141 MEQ/L 146 MEQ/L Potassium Level 3.1 MEQ/L 3.9 MEQ/L Serum Osmolality 306 MOSM/KG 308 MOSM/KG Phosphorus Level 0.7 MG/DL 2.2 MG/DL Magnesium Level 2.2 MG/DL 2.4 MG/DL Ethyl Alcohol Level LESS THAN 3 MG/DL White Blood Count 9.2 TH/MM3 Red Blood Count 4.00 MIL/MM3 Hemoglobin 13.6 GM/DL Hematocrit 37.0 % Mean Corpuscular Volume 92.5 FL Mean Corpuscular Hemoglobin 33.9 PG Mean Corpuscular Hemoglobin 36.7 % Concent Red Cell Distribution Width 12.9 % Platelet Count 143 TH/MM3 Mean Platelet Volume 10.7 FL Neutrophils (%) (Auto) 79.1 % Lymphocytes (%) (Auto) 11.7 % Monocytes (%) (Auto) 8.7 % Eosinophils (%) (Auto) 0.2 % Basophils (%) (Auto) 0.3 % Neutrophils # (Auto) 7.3 TH/MM3 Lymphocytes # (Auto) 1.1 TH/MM3 Monocytes # (Auto) 0.8 TH/MM3 Eosinophils # (Auto) 0.0 TH/MM3 Basophils # (Auto) 0.0 TH/MM3 CBC Comment AUTO DIFF Differential Comment AUTO DIFF CONFIRMED Red Cell Morphology Comment NORMAL Prothrombin Time 11.2 SEC Prothromb Time International 1.0 RATIO Ratio Activated Partial 25.5 SEC Thromboplast Time Fibrinogen 226 mg/dL Chloride Level 115 MEQ/L Carbon Dioxide Level 22.1 MEQ/L Anion Gap 9 MEQ/L Blood Urea Nitrogen 12 MG/DL Creatinine 0.87 MG/DL Estimat Glomerular Filtration 76 ML/MIN Rate Random Glucose 116 MG/DL Lactic Acid Level 0.9 mmol/L Calcium Level 8.5 MG/DL Total Bilirubin 0.8 MG/DL Aspartate Amino Transf 32 U/L (AST/SGOT) Alanine Aminotransferase 60 U/L (ALT/SGPT) Alkaline Phosphatase 67 U/L Total Protein 7.0 GM/DL Albumin 3.7 GM/DL 08/26/16 08/26/16 08/27/16 15:00 23:00 07:00 Intake Total 828 ml Output Total 3412 ml Balance -2584 ml Intake IV Total 828 ml Output Urine Total 3200 ml Gastric Drainage Total 125 ml Drainage Total 87 ml # Bowel Movements 0 (Sergey Melton) Medical Decision Making Impression and Plan A: M with Left basal ganglia hemorrhage with intraventricular extension with mild hydrocephalus. This is a characteristic of a hypertensive bleed. 2. Unregulated hypertension. 3. Respiratory failure secondary to the intracranial hemorrhage. PLAN Continue with ventriculostomy drain Continue with blood pressure control Continue with critical care- intubation. (Sergey Melton) Attending Statement The exam, history, and the medical decision-making described in the above note were completed with the assistance of the mid-level provider. I reviewed and agree with the findings presented. I attest that I had a [id number] encounter with the patient on the same day, and personally performed and documented my assessment and findings in the medical record. Ventriculostomy draining well with normal ICPs. Does not open eyes or follow commands but localizes and moves the left side with a dense right hemiparesis. We'll obtain MRI/MRA of the brain and continue with supportive care. (Jeff Croft MD) Sergey Melton Aug 27, 2016 09:48 Jeff Croft MD Aug 27, 2016 12:54
[2016-08-27] MEDS: fentaNYL DRIP 250 ML IV SCH (11:19)
--- NOTE | 2016-08-27 12:51 | HHI.CCPN ---
Subjective Remarks/Hospital Course This is a middle-aged male. Date of admission 08/26/2016. Past medical history is unknown. His real name is Rafy Ruiz. Haritha Ruiz [phone] is the health proxy. Per ED report, patient was acute onset 1 hour prior to admission of right upper and lower extremity weakness and dysarthria. Upon presentation to the ED, patient was quite hypertensive and had decreased responsiveness. Patient was intubated by ED physician. [address] head revealed a left intraparenchymal hemorrhage/basal ganglia with extension to the lateral ventricle with a 5 mm shift to the right. Neurosurgery was consulted/Dr. Croft who placed Right frontal ventriculostomy. Laboratories reveal potassium 2.8. Currently on Cardene drip at 15 mg an hour. SUBJ: Remains intubated, on fentanyl. Propofol on hold. On Cardene infusion at 1mg per hour. Ventric with 87 ml blood-tinged CSF since placement. ICP well controlled,. Patient's [id number] is at the bedside, is in [place] Objective Vital Signs Date Time Temp Pulse Resp B/P Pulse Ox O2 Delivery O2 Flow Rate FiO2 08/27/16 11:28 100 35 08/27/16 08:00 98.7 66 12 127/62 08/26/16 18:47 Ventilator 08/26/16 16:49 3 Result Diagram: 08/27/16 0400 08/27/16 0400 Other Results Laboratory Tests Test 08/26/16 08/26/16 17:49 23:28 Blood Gas Puncture Site RT RADIAL ART LINE Blood Gas Patient Temperature 98.6 98.6 Blood Gas HCO3 24 mmol/L 22 mmol/L (22-26) (22-26) Blood Gas Base Excess -0.3 mmol/L -1.1 mmol/L (-2-2) (-2-2) Blood Gas Oxygen Saturation 94 % (90-100) 98 % (90-100) Arterial Blood pH 7.42 7.52 (7.380-7.420) (7.380-7.420) Arterial Blood Partial 37 mmHg (38-42) 27 mmHg (38-42) Pressure CO2 Arterial Blood Partial 109 mmHG 159 mmHg Pressure O2 (61-120) (61-120) Arterial Blood Oxygen Content 19.2 Vol % 19.7 Vol % (12.0-20.0) (12.0-20.0) Arterial Blood 2.2 % (0-4) 1.3 % (0-4) Carboxyhemoglobin Arterial Blood Methemoglobin 2.1 % (0-2) 0.8 % (0-2) Blood Gas Hemoglobin 14.5 G/DL 14.2 G/DL (12.0-16.0) (12.0-16.0) Oxygen Delivery Device VENTILATOR VENTILATOR Blood Gas Ventilator Setting AC500/16/+5PEEP SEE COMMENT Blood Gas Inspired Oxygen 50 % 45 % Imaging Last Impressions Head CT 08/26/16 0000 Signed Impressions: Service Date/Time: Friday, August 26, 2016 15:41 - CONCLUSION: 1. Large intraparenchymal hemorrhage in the left basal ganglia with extension into left lateral ventricle. 2. Surrounding edema and mild midline shift to the right. Frederick Zaldivar MD Chest X-Ray 08/26/16 0000 Signed Impressions: Service Date/Time: Friday, August 26, 2016 14:37 - CONCLUSION: 1. Status post intubation with the endotracheal tube tip approximately 5 cm above the chela. 2. Midinspiratory study with crowding of the lung vasculature. Frederick Zaldivar MD Objective Remarks GENERAL: Middle-aged male, critically ill currently orotracheally intubated SKIN: Warm and dry. HEAD: Atraumatic. Normocephalic. R frontal ventriculostomy with blood tinged CSF EYES: Pupils equal and round pinpoint. No scleral icterus. No injection or drainage. ENT: No nasal bleeding or discharge. Mucous membranes pink and moist. NECK: Trachea midline. No JVD. CARDIOVASCULAR: Regular rate and rhythm. S1, S2. No S4. No murmur RESPIRATORY: Clear to auscultation. Breath sounds equal bilaterally. GASTROINTESTINAL: Abdomen soft, non-tender, nondistended. Active bowel sounds are present MUSCULOSKELETAL: Extremities without difficulty peripheral edema. No obvious deformities. NEUROLOGICAL: Moving left upper and lower extremity spontaneous. Positive corneal reflex.. Localizes with left upper extremity, withdrawals all other extremities to pain A/P Assessment and Plan Neuro/Psych: Left basal ganglia intraparenchymal hemorrhage s/p Right frontal ventriculostomy placement day #1 CT head revealed left basal ganglia intraparenchymal hemorrhage 3.42 cm with extension to lateral ventricle, midline shift 5 mm to the right. Neurosurgery/Dr. Croft. Right frontal twist drill hole ventriculostomy at -10 cm H2O. . Recheck CT pending Neuro checks per protocol Goal systolic blood pressure less than 140 on Cardene drip 3% saline at 30 cc an hour. Goal 145-155 Goal end tidal CO2 30-35 Keppra 500 IV every 12 hours each prophylaxis 7 days ICP currently well controlled CV: Hypertensive emergency Currently on Cardene drip at 1 milligrams an hour hour. Introduce by mouth calcium channel lelo Norvasc in 24 hours Resp: Acute respiratory failure [facility] 16/550/5/40 Ventilator bundle As needed bronchodilator therapy Spontaneous breathing trials when clinically indicated, and cleared by neurosurgery Follow-up chest x-ray/ABG GI: Nothing by mouth status, start tube feeds today with Jevity Protonix for GI prophylaxis Colace/as needed Senokot for bowel regimen : Kern will be placed for accurate I's nose any critically ill patient Endo: Sliding-scale insulin with Accu-Cheks every 4 hours to maintain euglycemia. Low regimen Renal: Monitor renal function closely Heme: CBC normal. Recheck in a.m. ID: Monitor for infection FEN: Hypokalemia Replace per ICU electrolyte protocol. MSK: PT evaluate and treat Access - Right IJ CVL day #2 Prophylaxis - GI - Protonix - DVT - SCDs/pharmacological prophylaxis contraindicated with intracranial hemorrhage Critical Care: The total critical care time was 35 minutes. Time to perform other separately billable procedures was not included in the critical care time. Manoj Cameron MD Aug 27, 2016 12:51
[2016-08-27] MEDS: 3% SALINE INJ 500 ML IV SCH (14:39)
[2016-08-27] MEDS: SENNOSIDES 8.6 MG TAB PO PRN (14:39)
--- NOTE | 2016-08-27 18:02 | RADRPT ---
EXAM DATE/TIME: 08/27/2016 16:49 [facility] COMPARISON: CT BRAIN W/O CONTRAST, August 26, 2016, 15:41. INDICATIONS : Hemorrhage. MEDICAL HISTORY : Hypertension. SURGICAL HISTORY : None. ENCOUNTER: Subsequent ACUITY: 2 day PAIN SCORE: Nonresponsive. LOCATION: Head. TECHNIQUE: Multiplanar, multisequence MRI of the brain was performed without contrast. FINDINGS: Large basal ganglia infarct is present on the left that measures 4 cm x 3.4 cm with mod erate compression of the third ventricle. Significant intraventricular hemorrhage remains. Perivent ricular white matter changes are evident. Hemorrhage does extend into the brainstem to the level of the left cerebral peduncle. Focal areas of hemosiderin deposition are present throughout the supratentorial brain as well. There are no extra-axial fluid collections appreciated. CONCLUSION: 1. Large thalamic hemorrhage as described above. Extensive periventricular white matter changes are noted. There is compression of the third ventricle. Ventriculostomy is seen in the right lateral fouzia tricle. 2. Hemorrhage does extend down the white matter tracts to the level of the right cerebral peduncle. Vargas Freitas MD FACR on August 27, 2016 at 17:49 Board Certified Radiologist. This report was verified electronically.
--- NOTE | 2016-08-27 18:09 | RADRPT ---
EXAM DATE/TIME: 08/27/2016 16:49 [facility] COMPARISON: MRI BRAIN W/O CONTRAST, August 27, 2016, 16:49. INDICATIONS : Hemorrhage. Nonresponsive. MEDICAL HISTORY : Hypertension. SURGICAL HISTORY : None. ENCOUNTER: Subsequent ACUITY: 2 day PAIN SCORE: Nonresponsive. LOCATION: Head. Please note a normal MRA of the brain does not entirely exclude the possibility of a small aneurysm, nor the possibility of distal intracranial vessel disease. TECHNIQUE: 3D time of flight MRA was performed. Source images, multiplanar STS MIP, and 3D volume MIP reconstru ctions were reviewed. FINDINGS: Moderate intracranial atherosclerotic vascular disease is present. There is no aneurysm or vascular displacement. There is no major branch vessel occlusion. CONCLUSION: Negative MRA of the brain. Vargas Freitas MD FACR on August 27, 2016 at 17:48 Board Certified Radiologist. This report was verified electronically.
[2016-08-27] MEDS: hydrALAZINE HCL 20 MG/ML VIAL IV PUSH PRN (19:30)
[2016-08-27] MEDS: JUVEN POWDER 1 PACK G-TUBE SCH (21:00)
--- NOTE | 2016-08-27 22:43 | EKG ---
Date Performed: 08/26/2016 Time Performed: 15:56:46 PTAGE: 89 years EKG: Sinus rhythm VOLTAGE CRITERIA FOR LVH NONSPECIFIC T-WAVE ABNORMALITY ABNORMAL ECG NO PREVIOUS TRACING DOCTOR: Domingo Carver Interpretating Date/Time 08/27/2016 22:41:34
[2016-08-27 23:14] LABS: POTASSIUM 3.4 MEQ/L (3.5-5.1)
[2016-08-27] MEDS: POTASSIUM CHLOR 20 MEQ PREMIX 100 ML IV PRN (23:57)
[2016-08-28] VITALS (18 sets, daily range): BP systolic 128–156; BP diastolic 53–65; PULSE 68–87; RESP 12–13; TEMP 97.9–99; O2SAT 96–100
[2016-08-28] MEDS: PROPOFOL 1000 MG/100 ML INJ 100 ML IV SCH ×4 (03:01→19:45)
--- NOTE | 2016-08-28 03:51 | RADRPT ---
EXAM DATE/TIME: 08/28/2016 03:00 [facility] COMPARISON: CHEST SINGLE AP, August 27, 2016, 5:18. INDICATIONS : Short of breath. MEDICAL HISTORY : Unobtainable. SURGICAL HISTORY : Unobtainable. ENCOUNTER: Subsequent ACUITY: 2 days PAIN SCORE: Non-responsive. LOCATION: Bilateral chest FINDINGS: There is subsegmental atelectasis at the left base. Cardiomegaly. Endotracheal tube in satisfactory p osition. NG tube tip overlies the stomach. Right jugular line tip overlies the SVC. CONCLUSION: Left basilar atelectasis. Benny Riojas MD on August 28, 2016 at 3:49 Board Certified Radiologist. This report was verified electronically.
[2016-08-28] MEDS: CHLORHEXIDINE GLUCONATE 2 % 1 PACK (2 CLOTHS) TOP SCH (04:00)
[2016-08-28] MEDS: INSULIN NovoLIN REGULAR SUPPLEMENTAL SCALE SQ SCH ×6 (04:00→19:45)
[2016-08-28 04:24] LABS: AUTOMATED NEUTROPHIL # 6.8 TH/MM3 (1.8-7.7); BASOPHIL % 0.4 % (0.0-2.0); EOSINOPHIL % 0.5 % (0.0-4.0); HEMATOCRIT 34.5 % (39.0-51.0); HEMO FLAGS DIFF FINAL; LYMPH % 11.7 % (9.0-44.0); MEAN CELL VOLUME 95.6 FL (80.0-100.0); MEAN CORPUSCULAR HEMOGLOBIN 33.1 PG (27.0-34.0); MEAN CORPUSCULAR HGB CONC 34.6 % (32.0-36.0); NEUT % 80.4 % (16.0-70.0); PLATELET COUNT 124 TH/MM3 (150-450); RED CELL DISTRIBUTION WIDTH 13.3 % (11.6-17.2); WHITE BLOOD COUNT 8.4 TH/MM3 (4.0-11.0)
[2016-08-28 06:00] LABS: ALKALINE PHOSPHATASE 56 U/L (45-117); ALT (GPT) 61 U/L (12-78); ANION GAP 9 MEQ/L (5-15); AST (GOT) 33 U/L (15-37); BICARBONATE 19.1 MEQ/L (21.0-32.0); BLOOD UREA NITROGEN 12 MG/DL (7-18); CHLORIDE 124 MEQ/L (98-107); GLOMERULAR FILTRATION RATE 101 ML/MIN (>89); MAGNESIUM 2.2 MG/DL (1.5-2.5); POTASSIUM 3.5 MEQ/L (3.5-5.1); SODIUM (NA) 152 MEQ/L (136-145); TOTAL BILIRUBIN ADULT 0.6 MG/DL (0.2-1.0)
[2016-08-28] MEDS: SODIUM CHLOR 0.9% 1000 ML INJ 1,000 ML IV SCH ×2 (06:10→19:46)
[2016-08-28] MEDS: POTASSIUM CHLOR 20 MEQ PREMIX 100 ML IV PRN (06:15)
[2016-08-28] MEDS: niCARdipine INJ 25 MG in SODIUM CHLOR 0.9% 250 ML INJ 250 ML IV SCH ×3 (06:15→15:31)
--- NOTE | 2016-08-28 08:16 | HHI.CCPN ---
Subjective Remarks/Hospital Course This is a middle-aged male. Date of admission 08/26/2016. Past medical history is unknown. His real name is Rafy Ruiz. Haritha Ruiz [phone] is the health proxy. Per ED report, patient was acute onset 1 hour prior to admission of right upper and lower extremity weakness and dysarthria. Upon presentation to the ED, patient was quite hypertensive and had decreased responsiveness. Patient was intubated by ED physician. [address] head revealed a left intraparenchymal hemorrhage/basal ganglia with extension to the lateral ventricle with a 5 mm shift to the right. Neurosurgery was consulted/Dr. Croft who placed Right frontal ventriculostomy. Laboratories reveal potassium 2.8. Currently on Cardene drip at 15 mg an hour. SUBJ: Remains intubated, on fentanyl. Propofol on hold. On Cardene infusion at 1mg per hour. Ventric with 87 ml blood-tinged CSF since placement. ICP well controlled,. Patient's [id number] is at the bedside, is in [place] 08/28: continues to have poor neurologic exam. on Cardene at 5mg/hr this AM. EVD with blood-tinged CSF, patent. ICP controlled. not yet on sedation hold this AM to my exam. Objective Vital Signs Date Time Temp Pulse Resp B/P Pulse Ox O2 Delivery O2 Flow Rate FiO2 08/28/16 04:19 100 35 08/28/16 04:00 98.0 70 12 140/58 08/26/16 18:47 Ventilator 08/26/16 16:49 3 Intake and Output 08/27/16 08/27/16 08/28/16 08:00 16:00 00:00 Intake Total 828 ml 1789 ml 1901 ml Output Total 3412 ml 450 ml 680.0 ml Balance -2584 ml 1339 ml 1221.0 ml Result Diagram: 08/28/16 0405 08/28/16 0405 Imaging Last Impressions Head CT 08/26/16 0000 Signed Impressions: Service Date/Time: Friday, August 26, 2016 15:41 - CONCLUSION: 1. Large intraparenchymal hemorrhage in the left basal ganglia with extension into left lateral ventricle. 2. Surrounding edema and mild midline shift to the right. Frederick Zaldivar MD Chest X-Ray 08/26/16 0000 Signed Impressions: Service Date/Time: Friday, August 26, 2016 14:37 - CONCLUSION: 1. Status post intubation with the endotracheal tube tip approximately 5 cm above the chela. 2. Midinspiratory study with crowding of the lung vasculature. Frederick Zaldivar MD Objective Remarks GENERAL: Middle-aged male, critically ill currently orotracheally intubated SKIN: Warm and dry. HEAD: Atraumatic. Normocephalic. R frontal ventriculostomy with blood tinged CSF , patent. EYES: Pupils equal and round pinpoint. No scleral icterus. No injection or drainage. ENT: No nasal bleeding or discharge. Mucous membranes pink and moist. orotracheally intubated. NECK: Trachea midline. No JVD. CARDIOVASCULAR: Regular rate and rhythm. no appreciable murmur. RESPIRATORY: Clear to auscultation. Breath sounds equal bilaterally. mechanically ventilated. GASTROINTESTINAL: Abdomen soft, non-tender, nondistended. no guarding. MUSCULOSKELETAL: Extremities without difficulty peripheral edema. No obvious deformities. NEUROLOGICAL: Moving left upper and lower extremity spontaneous. Positive corneal reflex.. Localizes with left upper extremity, withdrawals all other extremities to pain A/P Assessment and Plan Assessment: middle-aged male with large left basal ganglia ICH. His ICH score is 2, giving him an estimated 37% 30-day mortality. His course is complicated by acute hyoxic and hypercarbic respiratory failure. We will continue our aggressive goals for now. Neuro/Psych: Left basal ganglia intraparenchymal hemorrhage s/p Right frontal ventriculostomy placement 08/26 CT head revealed left basal ganglia intraparenchymal hemorrhage 3.42 cm with extension to lateral ventricle, midline shift 5 mm to the right. Neurosurgery/Dr. Croft. Right frontal twist drill hole ventriculostomy at 10 cm H2O. . Neuro checks q1h Goal systolic blood pressure less than 140 on Cardene drip 3% saline at 30 cc an hour. Goal 145-155 Keppra 500 IV every 12 hours each prophylaxis 7 days ICP currently well controlled CV: Hypertensive emergency Currently on Cardene drip at 5 milligrams an hour hour. start amlodipine 10mg po daily goal SBP < 140. Resp: Acute hypoxic and hypercarbic respiratory failure PRVC Ventilator bundle As needed bronchodilator therapy Spontaneous breathing trials when clinically indicated, and cleared by neurosurgery, does not meet criteria today. wean fio2 for goal spo2 > 90%. HOB at 30 degrees. GI: Nothing by mouth, tube feeds with Jevity Protonix for GI prophylaxis Colace/as needed Senokot for bowel regimen : [place] for accurate I/Os in this critically ill patient Endo: Sliding-scale insulin with Accu-Cheks every 4 hours to maintain euglycemia. Low regimen Renal: Monitor renal function closely Heme: daily CBC. ID: Monitor for infection FEN: Hypokalemia Replace per ICU electrolyte protocol. MSK: PT evaluate and treat Access - Right IJ CVL 08/26 - arterial line - izaguirre Prophylaxis - GI - Protonix - DVT - SCDs/pharmacological prophylaxis contraindicated with intracranial hemorrhage Critical Care: The total critical care time was 32 minutes. Time to perform other separately billable procedures was not included in the critical care time. Mian Payan MD Aug 28, 2016 08:16
[2016-08-28] MEDS: PANTOPRAZOLE SODIUM 40 MG VIAL IV SCH ×2 (09:00→09:23)
[2016-08-28] MEDS: SODIUM CHLORIDE 0.9% FLUSH 5 ML FLUSH IVF SCH (09:00)
[2016-08-28] MEDS: levETIRAcetam INJ 500 MG in SODIUM CHLORIDE 0.9% INJ 100 ML IV SCH ×3 (09:00→19:45)
[2016-08-28] MEDS: JUVEN POWDER 1 PACK G-TUBE SCH ×2 (09:00→20:39)
[2016-08-28] MEDS: CHLORHEXIDINE 0.12% (ORAL KIT) 15 ML CUP MT SCH ×2 (09:22→19:45)
[2016-08-28] MEDS: DOCUSATE SODIUM 100 MG CAP PO SCH ×2 (09:23→19:45)
[2016-08-28] MEDS: ARTIFICIAL TEARS OPTH SOLN 15 ML BTL EACH EYE SCH ×4 (09:23→18:00)
[2016-08-28] MEDS: SODIUM CHLORIDE 0.9% FLUSH 5 ML FLUSH IV FLUSH SCH ×2 (09:23→19:45)
--- NOTE | 2016-08-28 09:28 | HHI.NSPN ---
(Sergey Melton) History Chief Complaint: Left basal ganglia hemorrhage (Sergey Melton) Interval History This is a middle-aged gentleman who apparently was brought to [facility] Emergency Room with acute onset of right-sided weakness and slurred speech. He was hypertensive on presentation and had a declining neurologic examination requiring intubation for airway control with ventilator support. CT scan of the head obtained reveals a basal ganglia hemorrhage on the left side measuring about 3.4 cm in diameter. There is also extension of the hemorrhage into the left lateral ventricle. No hydrocephalus is noted, although left temporal horn is dilated. Currently there is no friends or family members here to relate a history and his identity is unknown. 08/27/16: Pt sedated on Diprivan. Not opening eyes. Not following commands. Pupils 2mm bilaterally slight reaction bilaterally. 08/28/16: Pt sedated on Diprivan. Not opening eyes. Pupils 2mm bilaterally slight brisk reaction. Not following commands. (Sergey Melton) System Review Comments Not able to obtain given level of alertness. (Sergey Melton) Exam Results Vital Signs Date Time Temp Pulse Resp B/P Pulse Ox O2 Delivery O2 Flow Rate FiO2 08/28/16 09:00 99 35 08/28/16 08:50 Ventilator 08/28/16 04:00 98.0 70 12 140/58 08/26/16 16:49 3 Intake and Output 08/27/16 08/27/16 08/28/16 08:00 16:00 00:00 Intake Total 828 ml 1789 ml 1901 ml Output Total 3412 ml 450 ml 680.0 ml Balance -2584 ml 1339 ml 1221.0 ml (Sergey Melton) Physical Examination Resp: CTA bilaterally. Intubated. Pressure controlled rate 12. Peep 5 FiO2 35% Heart: NSR no murmurs. Cardene drip. Abd: Soft positive bs Skin: No cyanosis or erythema. SCDs in place. Muscle: Not following for muscle testing. Neuro: Pt sedated on Diprivan and Fentanyl drips. Pt not opening eyes. Pupils 2mm bilaterally, very slight reaction bilaterally. Not following commands. Ventriculostomy in place at [id number] draining blood tinges CSF. Pt on 3% NaCl (Sergey Melton) Lab, Micro, Other Results Laboratory Tests Test 08/27/16 08/27/16 08/27/16 08/28/16 11:25 18:18 22:30 04:05 Sodium Level 150 MEQ/L 152 MEQ/L 153 MEQ/L 152 MEQ/L Serum Osmolality 307 MOSM/KG 310 MOSM/KG 312 MOSM/KG 317 MOSM/KG Potassium Level 3.4 MEQ/L 3.5 MEQ/L Phosphorus Level 1.7 MG/DL White Blood Count 8.4 TH/MM3 Red Blood Count 3.60 MIL/MM3 Hemoglobin 11.9 GM/DL Hematocrit 34.5 % Mean Corpuscular Volume 95.6 FL Mean Corpuscular Hemoglobin 33.1 PG Mean Corpuscular Hemoglobin 34.6 % Concent Red Cell Distribution Width 13.3 % Platelet Count 124 TH/MM3 Mean Platelet Volume 10.9 FL Neutrophils (%) (Auto) 80.4 % Lymphocytes (%) (Auto) 11.7 % Monocytes (%) (Auto) 7.0 % Eosinophils (%) (Auto) 0.5 % Basophils (%) (Auto) 0.4 % Neutrophils # (Auto) 6.8 TH/MM3 Lymphocytes # (Auto) 1.0 TH/MM3 Monocytes # (Auto) 0.6 TH/MM3 Eosinophils # (Auto) 0.0 TH/MM3 Basophils # (Auto) 0.0 TH/MM3 CBC Comment DIFF FINAL Differential Comment Chloride Level 124 MEQ/L Carbon Dioxide Level 19.1 MEQ/L Anion Gap 9 MEQ/L Blood Urea Nitrogen 12 MG/DL Creatinine 0.68 MG/DL Estimat Glomerular Filtration 101 ML/MIN Rate Random Glucose 130 MG/DL Calcium Level 8.2 MG/DL Magnesium Level 2.2 MG/DL Total Bilirubin 0.6 MG/DL Aspartate Amino Transf 33 U/L (AST/SGOT) Alanine Aminotransferase 61 U/L (ALT/SGPT) Alkaline Phosphatase 56 U/L Total Protein 6.2 GM/DL Albumin 2.9 GM/DL 08/27/16 08/27/16 08/28/16 15:00 23:00 07:00 Intake Total 1789 ml 1901 ml 1725 ml Output Total 450 ml 680 ml 765 ml Balance 1339 ml 1221 ml 960 ml Intake IV Total 1789 ml 1901 ml 1500 ml Tube Feeding 165 ml Tube Irrigant 60 ml Output Urine Total 375 ml 600 ml 700 ml Tube Feeding Residual Discard 0 ml 0 ml Drainage Total 75 ml 80 ml 65 ml # Bowel Movements 0 0 0 (Sergey Melton) Medical Decision Making Impression and Plan A: M with 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 This is a characteristic of a hypertensive bleed. 2. Unregulated hypertension. 3. Respiratory failure secondary to the intracranial hemorrhage. PLAN Continue with ventriculostomy drain Continue with blood pressure control Continue with critical care- intubation. (Sergey Melton) Attending Statement The exam, history, and the medical decision-making described in the above note were completed with the assistance of the mid-level provider. I reviewed and agree with the findings presented. I attest that I had a [id number] encounter with the patient on the same day, and personally performed and documented my assessment and findings in the medical record. Ventriculostomy draining well with normal ICP. MRI MRA without any underlying vascular malformation in the brain and a stable left basal ganglia and interventricular hemorrhage with no hydrocephalus. We will challenge ventriculostomy and continue with supportive care. (Jeff Croft MD) Sergey Melton Aug 28, 2016 09:28 Jeff Croft MD Aug 28, 2016 09:54
[2016-08-28] MEDS: 3% SALINE INJ 500 ML IV SCH (11:38)
[2016-08-28] MEDS: hydrALAZINE HCL 20 MG/ML VIAL IV PUSH PRN (13:33)
[2016-08-28] MEDS: LABETALOL HCL 100 MG/20 ML VIAL IV PRN ×2 (15:45→17:41)
[2016-08-28] MEDS: LABETALOL HCL 200 MG TAB PO SCH ×2 (16:03→22:00)
[2016-08-28 18:37] LABS: BLOOD GAS BASE EXCESS -5.3 mmol/L (-2-2); BLOOD GAS CARBOXYHEMOGLOBIN 1.3 % (0-4); BLOOD GAS HCO3 20 mmol/L (22-26); BLOOD GAS METHEMOGLOBIN 0.6 % (0-2); BLOOD GAS O2 HGB SATURATION 96 % (90-100); BLOOD GAS OXYGEN CONTENT 15.8 Vol % (12.0-20.0); BLOOD GAS PCO2 40 mmHg (38-42); BLOOD GAS PO2 101 mmHg (61-120); BLOOD GAS TOTAL HGB 11.6 G/DL (12.0-16.0); TEMP CORR TO 98.6
[2016-08-28 18:38] LABS: CRITICAL VALUE NO; OXYGEN DEVICE VENTILATOR
[2016-08-28 18:39] LABS: DRAW SITE ART LINE; FIO2 35 %; STAT NO
[2016-08-29] VITALS (16 sets, daily range): BP systolic 132–159; BP diastolic 54–77; PULSE 71–92; RESP 13–16; TEMP 98.2–100.4; O2SAT 94–100
[2016-08-29] MEDS: PROPOFOL 1000 MG/100 ML INJ 100 ML IV SCH ×4 (03:54→20:33)
[2016-08-29] MEDS: INSULIN NovoLIN REGULAR SUPPLEMENTAL SCALE SQ SCH ×6 (04:00→20:00)
[2016-08-29 04:48] LABS: HEMATOCRIT 31.1 % (39.0-51.0); MEAN CELL VOLUME 95.6 FL (80.0-100.0); MEAN CORPUSCULAR HEMOGLOBIN 33.2 PG (27.0-34.0); MEAN CORPUSCULAR HGB CONC 34.7 % (32.0-36.0); PLATELET COUNT 129 TH/MM3 (150-450); RED BLOOD COUNT 3.25 MIL/MM3 (4.50-5.90); RED CELL DISTRIBUTION WIDTH 13.5 % (11.6-17.2); REVIEW FLAG FINAL; WHITE BLOOD COUNT 7.9 TH/MM3 (4.0-11.0)
[2016-08-29] MEDS: CHLORHEXIDINE GLUCONATE 2 % 1 PACK (2 CLOTHS) TOP SCH (05:00)
[2016-08-29] MEDS: LABETALOL HCL 200 MG TAB PO SCH ×3 (05:16→22:00)
[2016-08-29] MEDS: SODIUM CHLOR 0.9% 1000 ML INJ 1,000 ML IV SCH ×2 (05:17→13:19)
[2016-08-29 05:36] LABS: BICARBONATE 24.5 MEQ/L (21.0-32.0); POTASSIUM 3.2 MEQ/L (3.5-5.1)
[2016-08-29] MEDS: POTASSIUM CHLOR 40 MEQ PREMIX 100 ML IV PRN ×2 (06:06→06:07)
[2016-08-29] MEDS: fentaNYL DRIP 250 ML IV SCH ×2 (06:58→20:34)
[2016-08-29] MEDS: CHLORHEXIDINE 0.12% (ORAL KIT) 15 ML CUP MT SCH ×2 (07:54→20:34)
[2016-08-29] MEDS: ARTIFICIAL TEARS OPTH SOLN 15 ML BTL EACH EYE SCH ×3 (08:05→18:45)
[2016-08-29] MEDS: JUVEN POWDER 1 PACK G-TUBE SCH ×3 (08:05→20:34)
[2016-08-29] MEDS: levETIRAcetam INJ 500 MG in SODIUM CHLORIDE 0.9% INJ 100 ML IV SCH ×2 (08:06→20:33)
[2016-08-29] MEDS: PANTOPRAZOLE SODIUM 40 MG VIAL IV SCH (08:06)
[2016-08-29] MEDS: DOCUSATE SODIUM 100 MG CAP PO SCH ×2 (08:06→20:33)
[2016-08-29] MEDS: SODIUM CHLORIDE 0.9% FLUSH 5 ML FLUSH IV FLUSH SCH ×2 (08:07→20:34)
[2016-08-29] MEDS: SODIUM CHLORIDE 0.9% FLUSH 5 ML FLUSH IVF SCH (08:07)
[2016-08-29] MEDS: LABETALOL HCL 100 MG/20 ML VIAL IV PRN ×3 (08:09→18:41)
--- NOTE | 2016-08-29 09:40 | HHI.NSPN ---
(Sergey Melton) History Chief Complaint: Left basal ganglia hemorrhage (Sergey Melton) Interval History This is a middle-aged gentleman who apparently was brought to [facility] Emergency Room with acute onset of right-sided weakness and slurred speech. He was hypertensive on presentation and had a declining neurologic examination requiring intubation for airway control with ventilator support. CT scan of the head obtained reveals a basal ganglia hemorrhage on the left side measuring about 3.4 cm in diameter. There is also extension of the hemorrhage into the left lateral ventricle. No hydrocephalus is noted, although left temporal horn is dilated. Currently there is no friends or family members here to relate a history and his identity is unknown. 08/27/16: Pt sedated on Diprivan. Not opening eyes. Not following commands. Pupils 2mm bilaterally slight reaction bilaterally. 08/28/16: Pt sedated on Diprivan. Not opening eyes. Pupils 2mm bilaterally slight brisk reaction. Not following commands. 08/29/16: Pt sedated with Diprivan and Fentanyl drips. Not opening eyes. Pupils 2mm bilaterally slight brisk reaction. Not following commands. (Sergey Melton) System Review Comments Not able to obtain given clinical status. (Sergey Melton) Exam Results Vital Signs Date Time Temp Pulse Resp B/P Pulse Ox O2 Delivery O2 Flow Rate FiO2 08/29/16 08:30 100 35 08/29/16 08:23 Ventilator 08/29/16 07:00 77 08/29/16 04:00 99.1 13 147/64 08/26/16 16:49 3 Intake and Output 08/28/16 08/28/16 08/29/16 08:00 16:00 00:00 Intake Total 1843 ml 1897 ml 1094 ml Output Total 765.0 ml 1112.0 ml 551.0 ml Balance 1078.0 ml 785.0 ml 543.0 ml (Sergey Melton) Physical Examination Resp: CTA bilaterally. Intubated. Pressure controlled rate 10. Peep 5 FiO2 35% Heart: NSR no murmurs. Cardene drip. Abd: Soft positive bs Skin: No cyanosis or erythema. SCDs in place. Muscle: Not following for muscle testing. Neuro: Pt sedated on Diprivan and Fentanyl drips. Pt not opening eyes. Pupils 2mm bilaterally, very slight reaction bilaterally. Not following commands. Ventriculostomy in place at [id number] draining blood tinged CSF. Pt on 3% NaCl (Sergey Melton) Lab, Micro, Other Results Last Impressions Chest X-Ray 08/28/16 0600 Signed Impressions: Service Date/Time: August 03:00 - CONCLUSION: Left basilar atelectasis. Benny Riojas MD Head CT 08/26/16 0000 Signed Impressions: Service Date/Time: Friday, August 26, 2016 15:41 - CONCLUSION: 1. Large intraparenchymal hemorrhage in the left basal ganglia with extension into left lateral ventricle. 2. Surrounding edema and mild midline shift to the right. Frederick Zaldivar MD Laboratory Tests Test 08/28/16 08/28/16 08/28/16 08/28/16 11:20 17:50 18:07 22:50 Sodium Level 152 MEQ/L 158 MEQ/L Serum Osmolality 318 MOSM/KG 321 MOSM/KG 322 MOSM/KG Blood Gas Puncture Site ART LINE Blood Gas Patient Temperature 98.6 Blood Gas HCO3 20 mmol/L Blood Gas Base Excess -5.3 mmol/L Blood Gas Oxygen Saturation 96 % Arterial Blood pH 7.31 Arterial Blood Partial 40 mmHg Pressure CO2 Arterial Blood Partial 101 mmHg Pressure O2 Arterial Blood Oxygen Content 15.8 Vol % Arterial Blood 1.3 % Carboxyhemoglobin Arterial Blood Methemoglobin 0.6 % Blood Gas Hemoglobin 11.6 G/DL Oxygen Delivery Device VENTILATOR Blood Gas Ventilator Setting 550/12/+5/1.0 Blood Gas Inspired Oxygen 35 % Test 08/29/16 04:30 White Blood Count 7.9 TH/MM3 Red Blood Count 3.25 MIL/MM3 Hemoglobin 10.8 GM/DL Hematocrit 31.1 % Mean Corpuscular Volume 95.6 FL Mean Corpuscular Hemoglobin 33.2 PG Mean Corpuscular Hemoglobin 34.7 % Concent Red Cell Distribution Width 13.5 % Platelet Count 129 TH/MM3 Mean Platelet Volume 11.1 FL Sodium Level 156 MEQ/L Potassium Level 3.2 MEQ/L Chloride Level 124 MEQ/L Carbon Dioxide Level 24.5 MEQ/L Anion Gap 8 MEQ/L Blood Urea Nitrogen 16 MG/DL Creatinine 0.79 MG/DL Estimat Glomerular Filtration 85 ML/MIN Rate Random Glucose 157 MG/DL Serum Osmolality 323 MOSM/KG Calcium Level 8.2 MG/DL 08/28/16 08/28/16 08/29/16 15:00 23:00 07:00 Intake Total 2015 ml 1094 ml 1213 ml Output Total 1112.0 ml 551 ml 191 ml Balance 903.0 ml 543 ml 1022 ml Intake IV Total 1700 ml 731 ml 900 ml Tube Feeding 265 ml 333 ml 253 ml Tube Irrigant 30 ml 60 ml Other 50 ml Output Urine Total 975 ml 500 ml 150 ml Gastric Drainage Total 35 ml Tube Feeding Residual Discard 35.0 ml 0 ml 0 ml Drainage Total 67 ml 51 ml 41 ml # Bowel Movements 0 0 0 (Sergey Melton) Medical Decision Making Impression and Plan A: M with Left basal ganglia hemorrhage with intraventricular extension with mild hydrocephalus. This is a characteristic of a hypertensive bleed. 2. Unregulated hypertension. 3. Respiratory failure secondary to the intracranial hemorrhage. PLAN Continue with ventriculostomy drain Continue with blood pressure control Continue with critical care- intubation. (Sergey Melton) Attending Statement The exam, history, and the medical decision-making described in the above note were completed with the assistance of the mid-level provider. I reviewed and agree with the findings presented. I attest that I had a [id number] encounter with the patient on the same day, and personally performed and documented my assessment and findings in the medical record. Does not tolerate the sedation wean, ICPs normal with ventriculostomy draining well. Continue with ventriculostomy drainage and supportive care. Updated [id number] at bedside. (Jeff Croft MD) Sergey Melton Aug 29, 2016 09:40 Jeff Croft MD Aug 29, 2016 16:56
[2016-08-29] MEDS: niCARdipine INJ 25 MG in SODIUM CHLOR 0.9% 250 ML INJ 250 ML IV SCH ×4 (10:20→22:04)
--- NOTE | 2016-08-29 11:36 | HHI.CCPN ---
Subjective Remarks/Hospital Course This is a middle-aged male. Date of admission 08/26/2016. Past medical history is unknown. His real name is Rafy Ruiz. Haritha Ruiz [phone] is the health proxy. Per ED report, patient was acute onset 1 hour prior to admission of right upper and lower extremity weakness and dysarthria. Upon presentation to the ED, patient was quite hypertensive and had decreased responsiveness. Patient was intubated by ED physician. [address] head revealed a left intraparenchymal hemorrhage/basal ganglia with extension to the lateral ventricle with a 5 mm shift to the right. Neurosurgery was consulted/Dr. Croft who placed Right frontal ventriculostomy. Laboratories reveal potassium 2.8. Currently on Cardene drip at 15 mg an hour. SUBJ: Remains intubated, on fentanyl. Propofol on hold. On Cardene infusion at 1mg per hour. Ventric with 87 ml blood-tinged CSF since placement. ICP well controlled,. Patient's [id number] is at the bedside, is in [place] 08/28: continues to have poor neurologic exam. on Cardene at 5mg/hr this AM. EVD with blood-tinged CSF, patent. ICP controlled. not yet on sedation hold this AM to my exam. 08/29: no change in neuro exam. cardene persists for blood pressure control. Objective Vital Signs Date Time Temp Pulse Resp B/P Pulse Ox O2 Delivery O2 Flow Rate FiO2 08/29/16 10:05 35 08/29/16 08:30 100 08/29/16 08:23 Ventilator 08/29/16 08:00 98.2 71 13 159/77 08/26/16 16:49 3 Intake and Output 08/28/16 08/28/16 08/29/16 08:00 16:00 00:00 Intake Total 1843 ml 1897 ml 1094 ml Output Total 765.0 ml 1112.0 ml 551.0 ml Balance 1078.0 ml 785.0 ml 543.0 ml Result Diagram: 08/29/16 0430 08/29/16 0430 Other Results Laboratory Tests Test 08/28/16 18:07 Blood Gas Puncture Site ART LINE Blood Gas Patient Temperature 98.6 Blood Gas HCO3 20 mmol/L (22-26) Blood Gas Base Excess -5.3 mmol/L (-2-2) Blood Gas Oxygen Saturation 96 % (90-100) Arterial Blood pH 7.31 (7.380-7.420) Arterial Blood Partial 40 mmHg (38-42) Pressure CO2 Arterial Blood Partial 101 mmHg Pressure O2 (61-120) Arterial Blood Oxygen Content 15.8 Vol % (12.0-20.0) Arterial Blood 1.3 % (0-4) Carboxyhemoglobin Arterial Blood Methemoglobin 0.6 % (0-2) Blood Gas Hemoglobin 11.6 G/DL (12.0-16.0) Oxygen Delivery Device VENTILATOR Blood Gas Ventilator Setting 550/12/+5/1.0 Blood Gas Inspired Oxygen 35 % Imaging Last Impressions Head CT 08/26/16 0000 Signed Impressions: Service Date/Time: Friday, August 26, 2016 15:41 - CONCLUSION: 1. Large intraparenchymal hemorrhage in the left basal ganglia with extension into left lateral ventricle. 2. Surrounding edema and mild midline shift to the right. Frederick Zaldivar MD Chest X-Ray 08/26/16 Signed Impressions: Service Date/Time: Friday, August 26, 2016 14:37 - CONCLUSION: 1. Status post intubation with the endotracheal tube tip approximately 5 cm above the chela. 2. Midinspiratory study with crowding of the lung vasculature. Frederick Zaldivar MD Objective Remarks GENERAL: Middle-aged male, critically ill currently orotracheally intubated SKIN: Warm and dry. HEAD: Atraumatic. Normocephalic. R frontal ventriculostomy with blood tinged CSF , patent. EYES: Pupils equal and round pinpoint. No scleral icterus. No injection or drainage. ENT: No nasal bleeding or discharge. Mucous membranes pink and moist. orotracheally intubated. NECK: Trachea midline. No JVD. CARDIOVASCULAR: Regular rate and rhythm. no appreciable murmur. RESPIRATORY: Clear to auscultation. Breath sounds equal bilaterally. mechanically ventilated. GASTROINTESTINAL: Abdomen soft, non-tender, nondistended. no guarding. MUSCULOSKELETAL: Extremities without difficulty peripheral edema. No obvious deformities. NEUROLOGICAL: Moving left upper and lower extremity spontaneous. Positive corneal reflex.. Localizes with left upper extremity, withdrawals all other extremities to pain A/P Assessment and Plan Assessment: middle-aged male with large left basal ganglia ICH. His ICH score is 2, giving him an estimated 37% 30-day mortality. His course is complicated by acute hyoxic and hypercarbic respiratory failure. We will continue our aggressive goals for now. Neuro/Psych: Left basal ganglia intraparenchymal hemorrhage s/p Right frontal ventriculostomy placement 08/26 CT head revealed left basal ganglia intraparenchymal hemorrhage 3.42 cm with extension to lateral ventricle, midline shift 5 mm to the right. Neurosurgery/Dr. Croft. Right frontal twist drill hole ventriculostomy at 10 cm H2O. . Neuro checks q1h Goal systolic blood pressure less than 140 on Cardene drip 3% saline at 30 cc an hour. Goal 145-155 Keppra 500 IV every 12 hours each prophylaxis 7 days ICP currently well controlled -- will obtain EEG, given persistently poor neuro exam. CV: Hypertensive emergency Currently on Cardene drip continue amlodipine 10mg po daily start labetalol 200mg po q8h goal SBP < 140. Resp: Acute hypoxic and hypercarbic respiratory failure PRVC Ventilator bundle As needed bronchodilator therapy Spontaneous breathing trials when clinically indicated, and cleared by neurosurgery, does not meet criteria today. wean fio2 for goal spo2 > 90%. HOB at 30 degrees. GI: Nothing by mouth, tube feeds with Jevity Protonix for GI prophylaxis Colace/as needed Senokot for bowel regimen, add miralax and lactulose : Izaguirre for accurate I/Os in this critically ill patient Endo: Sliding-scale insulin with Accu-Cheks every 4 hours to maintain euglycemia. Low regimen Renal: Monitor renal function closely Heme: daily CBC. ID: Monitor for infection FEN: Hypokalemia Replace per ICU electrolyte protocol. MSK: PT evaluate and treat Access - Right IJ CVL 08/26 - arterial line - izaguirre Prophylaxis - GI - Protonix - DVT - SCDs/pharmacological prophylaxis contraindicated with intracranial hemorrhage Critical Care: The total critical care time was 36 minutes. Time to perform other separately billable procedures was not included in the critical care time. Mian Payan MD Aug 29, 2016 11:35
[2016-08-29] MEDS: SENNOSIDES 8.6 MG TAB PO PRN (16:30)
[2016-08-29] MEDS: LACTULOSE SYRUP 20 GM/30 ML CUP PO SCH (20:33)
[2016-08-29] MEDS: POLYETHYLENE GLYCOL 17 GM PKG PO SCH (20:35)
[2016-08-29 21:00] LABS: MEAN CORPUSCULAR HGB CONC 36.1 % (32.0-36.0)
[2016-08-30] VITALS (13 sets, daily range): BP systolic 119–155; BP diastolic 58–66; PULSE 83–94; RESP 14–18; TEMP 99.5–100.8; O2SAT 93–98
[2016-08-30] MEDS: niCARdipine INJ 25 MG in SODIUM CHLOR 0.9% 250 ML INJ 250 ML IV SCH ×4 (02:27→18:45)
[2016-08-30] MEDS: PROPOFOL 1000 MG/100 ML INJ 100 ML IV SCH ×5 (02:27→22:05)
[2016-08-30] MEDS: INSULIN NovoLIN REGULAR SUPPLEMENTAL SCALE SQ SCH ×5 (04:00→16:00)
[2016-08-30] MEDS: CHLORHEXIDINE GLUCONATE 2 % 1 PACK (2 CLOTHS) TOP SCH (04:00)
[2016-08-30 05:05] LABS: HEMATOCRIT 29.7 % (39.0-51.0); MEAN CORPUSCULAR HEMOGLOBIN 34.3 PG (27.0-34.0); PLATELET COUNT 132 TH/MM3 (150-450); RED BLOOD COUNT 3.13 MIL/MM3 (4.50-5.90); RED CELL DISTRIBUTION WIDTH 13.2 % (11.6-17.2); WHITE BLOOD COUNT 8.2 TH/MM3 (4.0-11.0)
[2016-08-30 05:10] LABS: REVIEW FLAG FINAL
[2016-08-30 05:28] LABS: BICARBONATE 22.4 MEQ/L (21.0-32.0); POTASSIUM 3.2 MEQ/L (3.5-5.1)
[2016-08-30] MEDS: SODIUM CHLOR 0.9% 1000 ML INJ 1,000 ML IV SCH (05:37)
[2016-08-30] MEDS: LABETALOL HCL 200 MG TAB PO SCH ×3 (05:37→22:29)
[2016-08-30] MEDS: POTASSIUM CHLOR 40 MEQ PREMIX 100 ML IV PRN (05:52)
[2016-08-30] MEDS: ACETAMINOPHEN 325 MG TAB PO PRN (06:32)
[2016-08-30] MEDS: ARTIFICIAL TEARS OPTH SOLN 15 ML BTL EACH EYE SCH ×3 (07:52→17:25)
[2016-08-30] MEDS: DOCUSATE SODIUM 100 MG CAP PO SCH ×3 (07:52→21:00)
[2016-08-30] MEDS: CHLORHEXIDINE 0.12% (ORAL KIT) 15 ML CUP MT SCH ×2 (07:52→19:47)
[2016-08-30] MEDS: LACTULOSE SYRUP 20 GM/30 ML CUP PO SCH ×3 (07:52→21:00)
[2016-08-30] MEDS: JUVEN POWDER 1 PACK G-TUBE SCH ×2 (07:52→20:56)
[2016-08-30] MEDS: POTASSIUM CL 40 MEQ/30 ML LIQ UDC PO/TUBE PRN (07:58)
[2016-08-30] MEDS: SODIUM CHLORIDE 0.9% FLUSH 5 ML FLUSH IV FLUSH SCH ×2 (07:59→20:56)
[2016-08-30] MEDS: POLYETHYLENE GLYCOL 17 GM PKG PO SCH ×3 (07:59→21:00)
[2016-08-30] MEDS: levETIRAcetam INJ 500 MG in SODIUM CHLORIDE 0.9% INJ 100 ML IV SCH ×2 (07:59→20:55)
[2016-08-30] MEDS: SODIUM CHLORIDE 0.9% FLUSH 5 ML FLUSH IVF SCH (07:59)
[2016-08-30] MEDS: PANTOPRAZOLE SODIUM 40 MG VIAL IV SCH (07:59)
[2016-08-30] MEDS: LABETALOL HCL 100 MG/20 ML VIAL IV PRN ×6 (08:39→23:37)
--- NOTE | 2016-08-30 09:43 | HHI.CCPN ---
Subjective Remarks/Hospital Course This is a middle-aged male. Date of admission 08/26/2016. Past medical history is unknown. His real name is Rafy Ruiz. Haritha Ruiz [phone] is the health proxy. Per ED report, patient was acute onset 1 hour prior to admission of right upper and lower extremity weakness and dysarthria. Upon presentation to the ED, patient was quite hypertensive and had decreased responsiveness. Patient was intubated by ED physician. [address] head revealed a left intraparenchymal hemorrhage/basal ganglia with extension to the lateral ventricle with a 5 mm shift to the right. Neurosurgery was consulted/Dr. Croft who placed Right frontal ventriculostomy. Laboratories reveal potassium 2.8. Currently on Cardene drip at 15 mg an hour. SUBJ: Remains intubated, on fentanyl. Propofol on hold. On Cardene infusion at 1mg per hour. Ventric with 87 ml blood-tinged CSF since placement. ICP well controlled,. Patient's oafabl-to-luo is at the bedside, is in [place] 08/28: continues to have poor neurologic exam. on Cardene at 5mg/hr this AM. EVD with blood-tinged CSF, patent. ICP controlled. not yet on sedation hold this AM to my exam. 08/29: no change in neuro exam. cardene persists for blood pressure control. 08/30: encephalopathy persists. still on cardene at 5mg/hr for blood pressure. Objective Vital Signs Date Time Temp Pulse Resp B/P Pulse Ox O2 Delivery O2 Flow Rate FiO2 08/30/16 08:00 100.6 88 14 130/60 95 Automatic Cuff 08/30/16 08:00 35 08/29/16 08:23 Ventilator 08/26/16 16:49 3 Intake and Output 08/29/16 08/29/16 08/30/16 08:00 16:00 00:00 Intake Total 1213 ml 1971 ml 2273 ml Output Total 191 ml 1140.0 ml 1585 ml Balance 1022 ml 831.0 ml 688 ml Result Diagram: 08/30/16 0455 08/30/16 0455 Imaging Last Impressions Head CT 08/26/16 0000 Signed Impressions: Service Date/Time: Friday, August 26, 2016 15:41 - CONCLUSION: 1. Large intraparenchymal hemorrhage in the left basal ganglia with extension into left lateral ventricle. 2. Surrounding edema and mild midline shift to the right. Frederick Zaldivar MD Chest X-Ray 08/26/16 0000 Signed Impressions: Service Date/Time: Friday, August 26, 2016 14:37 - CONCLUSION: 1. Status post intubation with the endotracheal tube tip approximately 5 cm above the chela. 2. Midinspiratory study with crowding of the lung vasculature. Frederick Zaldivar MD Objective Remarks GENERAL: Middle-aged male, critically ill currently orotracheally intubated SKIN: Warm and dry. HEAD: Atraumatic. Normocephalic. R frontal ventriculostomy with blood tinged CSF , patent. EYES: Pupils equal and round pinpoint. No scleral icterus. No injection or drainage. ENT: No nasal bleeding or discharge. Mucous membranes pink and moist. orotracheally intubated. NECK: Trachea midline. No JVD. CARDIOVASCULAR: Regular rate and rhythm. no appreciable murmur. RESPIRATORY: Clear to auscultation. Breath sounds equal bilaterally. mechanically ventilated. GASTROINTESTINAL: Abdomen soft, non-tender, nondistended. no guarding. MUSCULOSKELETAL: Extremities without difficulty peripheral edema. No obvious deformities. NEUROLOGICAL: Moving left upper and lower extremity spontaneous. Positive corneal reflex.. Localizes with left upper extremity, withdrawals all other extremities to pain A/P Assessment and Plan Assessment: middle-aged male with large left basal ganglia ICH. His ICH score is 2, giving him an estimated 37% 30-day mortality. His course is complicated by acute hyoxic and hypercarbic respiratory failure. We will continue our aggressive goals for now. Neuro/Psych: Left basal ganglia intraparenchymal hemorrhage s/p Right frontal ventriculostomy placement 08/26 CT head revealed left basal ganglia intraparenchymal hemorrhage 3.42 cm with extension to lateral ventricle, midline shift 5 mm to the right. Neurosurgery/Dr. Croft. Right frontal twist drill hole ventriculostomy at 10 cm H2O. . Neuro checks q1h Goal systolic blood pressure less than 140 on Cardene drip d/c hyper-osmolar therapy today. will slowly normalize sodium. Keppra 500 IV every 12 hours each prophylaxis 7 days ICP currently well controlled -- EEG pending. CV: Hypertensive emergency Currently on Cardene drip continue amlodipine 10mg po daily increase labetalol to 400mg po q8h goal SBP < 140. Resp: Acute hypoxic and hypercarbic respiratory failure PRVC Ventilator bundle As needed bronchodilator therapy Spontaneous breathing trials when clinically indicated, and cleared by neurosurgery, does not meet criteria today. wean fio2 for goal spo2 > 90%. HOB at 30 degrees. GI: Acute Protein Calorie Malnutrition-mild Constipation Nothing by mouth, tube feeds with Jevity Protonix for GI prophylaxis Colace/as needed Senokot for bowel regimen, added miralax and lactulose yesterday, add mag citrate and suppository today. : Izaguirre for accurate I/Os in this critically ill patient Endo: Hyperglycemia of Critical Illness Sliding-scale insulin with Accu-Cheks every 4 hours to maintain euglycemia. Low regimen Renal: Intravascular hypervolemia Monitor renal function closely lasix 20mg iv x 1 now. Heme: daily CBC. ID: Monitor for infection FEN: Hypokalemia Replace per ICU electrolyte protocol. MSK: PT evaluate and treat Access - Right IJ CVL 08/26 - arterial line - izaguirre Prophylaxis - GI - Protonix - DVT - SCDs/pharmacological prophylaxis contraindicated with intracranial hemorrhage Critical Care: The total critical care time was 34 minutes. Time to perform other separately billable procedures was not included in the critical care time. Mian Payan MD Aug 30, 2016 09:43
[2016-08-30] MEDS ORDERED: MAGNESIUM CITRATE SOLN 300 ML BTL PO ONE (09:45)
[2016-08-30] MEDS ORDERED: FUROSEMIDE 20 MG/2 ML VIAL IV PUSH ONE (09:45)
[2016-08-30] MEDS ORDERED: FUROSEMIDE 40 MG/4 ML VIAL ONE (10:08)
--- NOTE | 2016-08-30 10:44 | HHI.NSPN ---
History Chief Complaint: Left basal ganglia hemorrhage Interval History Day 4 after left thalamic intraventricular hemorrhage. He has an EVD draining 219 cc in 29 hrs, ICP 10, well controlled. MRI showed multiple microbleeds in both hemispoheres consistent with angiopathy. Review of Systems General: Positive for: fever (low grade fevers 110.4), Negative for: chills, insomnia Exam Results Vital Signs Date Time Temp Pulse Resp B/P Pulse Ox O2 Delivery O2 Flow Rate FiO2 08/30/16 08:00 100.6 88 14 130/60 95 Automatic Cuff 08/30/16 08:00 35 08/29/16 08:23 Ventilator 08/26/16 16:49 3 Intake and Output 08/29/16 08/29/16 08/30/16 08:00 16:00 00:00 Intake Total 1213 ml 1971 ml 2273 ml Output Total 191 ml 1140.0 ml 1585 ml Balance 1022 ml 831.0 ml 688 ml Physical Examination Heart: NSR . Cardene drip. Abd: Soft positive bs Skin: No cyanosis or erythema. SCDs in place. Muscle: Not following for muscle testing. Neuro: Pt sedated on Diprivan and Fentanyl drips. Pt not opening eyes. Pupils 2mm bilaterally,with scleral edema, very slight reaction bilaterally. Not following commands. Ventriculostomy in place at [id number] draining blood tinged CSF. Lab, Micro, Other Results Last Impressions Chest X-Ray 08/28/16 0600 Signed Impressions: Service Date/Time: August 03:00 - CONCLUSION: Left basilar atelectasis. Benny Riojas MD Head Magnetic Resonance Angiography 08/27/16 0000 Signed Impressions: Service Date/Time: Saturday, August 27, 2016 16:49 - CONCLUSION: Negative MRA of the brain. Vargas Freitas MD FACR Brain MRI 08/27/16 0000 Signed Impressions: Service Date/Time: Saturday, August 27, 2016 16:49 - CONCLUSION: 1. Large thalamic hemorrhage as described above. Extensive periventricular white matter changes are noted. There is compression of the third ventricle. Ventriculostomy is seen in the right lateral ventricle. 2. Hemorrhage does extend down the white matter tracts to the level of the right cerebral peduncle. Vargas Freitas MD FACR Head CT 08/26/16 0000 Signed Impressions: Service Date/Time: Friday, August 26, 2016 15:41 - CONCLUSION: 1. Large intraparenchymal hemorrhage in the left basal ganglia with extension into left lateral ventricle. 2. Surrounding edema and mild midline shift to the right. Frederick Zaldivar MD Laboratory Tests Test 08/29/16 08/29/16 08/30/16 11:50 18:50 04:55 Sodium Level 157 MEQ/L 153 MEQ/L 155 MEQ/L Serum Osmolality 323 MOSM/KG 321 MOSM/KG White Blood Count 8.2 TH/MM3 Red Blood Count 3.13 MIL/MM3 Hemoglobin 10.7 GM/DL Hematocrit 29.7 % Mean Corpuscular Volume 95.0 FL Mean Corpuscular Hemoglobin 34.3 PG Mean Corpuscular Hemoglobin 36.1 % Concent Red Cell Distribution Width 13.2 % Platelet Count 132 TH/MM3 Mean Platelet Volume 10.7 FL Potassium Level 3.2 MEQ/L Chloride Level 123 MEQ/L Carbon Dioxide Level 22.4 MEQ/L Anion Gap 10 MEQ/L Blood Urea Nitrogen 13 MG/DL Creatinine 0.75 MG/DL Estimat Glomerular Filtration 90 ML/MIN Rate Random Glucose 147 MG/DL Calcium Level 8.3 MG/DL Medical Decision Making Impression and Plan Day 4 after left thalamic bleed, stable intracranial pressures and perfusion pressures, limited neurologic exam. Supportive care, tube feeds, DVT and PUD prophylaxis per ICU protocol. He remains critically ill. Total Minutes: 10 Alessio Hess Aug 30, 2016 10:44
[2016-08-30] MEDS: FREE WATER G-TUBE SCH ×2 (11:27→17:25)
[2016-08-30] MEDS: hydrALAZINE HCL 20 MG/ML VIAL IV PUSH PRN (11:27)
[2016-08-30] MEDS: NITROGLYCERIN 2% OINT 1 GM PACKET TOPICAL PRN (13:23)
[2016-08-30] MEDS: BISACODYL 10 MG SUPP RECTAL SCH (13:23)
[2016-08-30 14:03] LABS: BLOOD GAS BASE EXCESS -2.3 mmol/L (-2-2); BLOOD GAS CARBOXYHEMOGLOBIN 1.7 % (0-4); BLOOD GAS HCO3 22 mmol/L (22-26); BLOOD GAS METHEMOGLOBIN 0.7 % (0-2); BLOOD GAS O2 HGB SATURATION 92 % (90-100); BLOOD GAS OXYGEN CONTENT 13.7 Vol % (12.0-20.0); BLOOD GAS PCO2 36 mmHg (38-42); BLOOD GAS PO2 70 mmHg (61-120); BLOOD GAS TOTAL HGB 10.6 G/DL (12.0-16.0); CRITICAL VALUE NO; OXYGEN DEVICE VENTILATOR; TEMP CORR TO 98.6
[2016-08-30 14:04] LABS: DRAW SITE ART LINE; FIO2 35 %; NUMBER OF ARTERIAL PUNCTURES 0; STAT NO; ULNAR PULSE PRESENT; VENT SETTINGS PRVC/AC
[2016-08-30] MEDS: fentaNYL DRIP 250 ML IV SCH (18:45)
--- NOTE | 2016-08-30 20:33 | MG ---
cc: MADELEINE [facility] Lab No: [id number] Date: Age: Sex: M Race: Sedated on fentanyl. Biting ET tube. Decreased responsiveness. Thalamic hemorrhage. Protonix, Keppra. DESCRIPTION OF RECORD: Diffuse 5 Hz slowing is noted. The recording overall is synchronous and symmetric. I do not see any hemisphere asymmetry, some bitemporal muscle artifact is noted. Hyperventilation was not performed. Photic stimulation was performed without significant posterior driving. IMPRESSION: Diffuse theta slowing consistent with a mild diffuse encephalopathy but no focal abnormality is noted. No seizure activity is seen. MD SHANE Chandra/MERY /8:10 PM /8:20 PM
[2016-08-31] VITALS (15 sets, daily range): BP systolic 132–154; BP diastolic 53–68; PULSE 88–96; RESP 15–18; TEMP 98.8–99.9; O2SAT 94–97
[2016-08-31] MEDS: PROPOFOL 1000 MG/100 ML INJ 100 ML IV SCH ×2 (01:14→08:44)
[2016-08-31] MEDS: fentaNYL DRIP 250 ML IV SCH (02:41)
[2016-08-31] MEDS: CHLORHEXIDINE GLUCONATE 2 % 1 PACK (2 CLOTHS) TOP SCH (04:00)
[2016-08-31] MEDS: INSULIN NovoLIN REGULAR SUPPLEMENTAL SCALE SQ SCH ×6 (04:00→20:00)
[2016-08-31] MEDS: LABETALOL HCL 200 MG TAB PO SCH ×3 (05:03→21:35)
[2016-08-31] MEDS: FREE WATER G-TUBE SCH ×5 (05:24→19:48)
[2016-08-31 06:00] LABS: HEMATOCRIT 27.6 % (39.0-51.0); MEAN CELL VOLUME 94.8 FL (80.0-100.0); MEAN CORPUSCULAR HEMOGLOBIN 33.4 PG (27.0-34.0); MEAN CORPUSCULAR HGB CONC 35.2 % (32.0-36.0); PLATELET COUNT 137 TH/MM3 (150-450); RED BLOOD COUNT 2.91 MIL/MM3 (4.50-5.90); RED CELL DISTRIBUTION WIDTH 12.7 % (11.6-17.2); REVIEW FLAG FINAL; WHITE BLOOD COUNT 8.8 TH/MM3 (4.0-11.0)
[2016-08-31 06:18] LABS: BICARBONATE 23.1 MEQ/L (21.0-32.0); POTASSIUM 3.3 MEQ/L (3.5-5.1)
[2016-08-31] MEDS: LABETALOL HCL 100 MG/20 ML VIAL IV PRN ×4 (07:00→18:55)
[2016-08-31] MEDS: CHLORHEXIDINE 0.12% (ORAL KIT) 15 ML CUP MT SCH ×2 (08:00→20:16)
--- NOTE | 2016-08-31 08:15 | HHI.CCPN ---
Subjective Remarks/Hospital Course This is a middle-aged male. Date of admission 08/26/2016. Past medical history is unknown. His real name is Rafy Ruiz. Haritha Ruiz [phone] is the health proxy. Per ED report, patient was acute onset 1 hour prior to admission of right upper and lower extremity weakness and dysarthria. Upon presentation to the ED, patient was quite hypertensive and had decreased responsiveness. Patient was intubated by ED physician. [address] head revealed a left intraparenchymal hemorrhage/basal ganglia with extension to the lateral ventricle with a 5 mm shift to the right. Neurosurgery was consulted/Dr. Croft who placed Right frontal ventriculostomy. Laboratories reveal potassium 2.8. Currently on Cardene drip at 15 mg an hour. SUBJ: Remains intubated, on fentanyl. Propofol on hold. On Cardene infusion at 1mg per hour. Ventric with 87 ml blood-tinged CSF since placement. ICP well controlled,. Patient's [id number] is at the bedside, is in [place] 08/28: continues to have poor neurologic exam. on Cardene at 5mg/hr this AM. EVD with blood-tinged CSF, patent. ICP controlled. not yet on sedation hold this AM to my exam. 08/29: no change in neuro exam. cardene persists for blood pressure control. 08/30: encephalopathy persists. still on cardene at 5mg/hr for blood pressure. 08/31: hypernatremia persists. poor neuro exam still. unable to tolerate sedation holiday due to hypertension. labetalol increased yesterday with only mild improvements. did not diurese well with lasix 20 yesterday. Objective Vital Signs Date Time Temp Pulse Resp B/P Pulse Ox O2 Delivery O2 Flow Rate FiO2 08/31/16 07:40 96 45 08/31/16 04:00 99.9 93 15 139/61 08/29/16 08:23 Ventilator Intake and Output 08/30/16 08/30/16 08/31/16 08:00 16:00 00:00 Intake Total 1945 ml 2046 ml 729 ml Output Total 864.0 ml 2690.0 ml 510.0 ml Balance 1081.0 ml -644.0 ml 219.0 ml Result Diagram: 08/31/16 0508/31/16 0510 Other Results Laboratory Tests Test 08/30/16 13:50 Blood Gas Puncture Site ART LINE Blood Gas Patient Temperature 98.6 Blood Gas HCO3 22 mmol/L (22-26) Blood Gas Base Excess -2.3 mmol/L (-2-2) Blood Gas Oxygen Saturation 92 % (90-100) Arterial Blood pH 7.39 (7.380-7.420) Arterial Blood Partial 36 mmHg (38-42) Pressure CO2 Arterial Blood Partial 70 mmHg Pressure O2 (61-120) Arterial Blood Oxygen Content 13.7 Vol % (12.0-20.0) Arterial Blood 1.7 % (0-4) Carboxyhemoglobin Arterial Blood Methemoglobin 0.7 % (0-2) Blood Gas Hemoglobin 10.6 G/DL (12.0-16.0) Oxygen Delivery Device VENTILATOR Blood Gas Ventilator Setting PRVC/AC Blood Gas Inspired Oxygen 35 % Imaging Last Impressions Head CT 08/26/16 0000 Signed Impressions: Service Date/Time: Friday, August 26, 2016 15:41 - CONCLUSION: 1. Large intraparenchymal hemorrhage in the left basal ganglia with extension into left lateral ventricle. 2. Surrounding edema and mild midline shift to the right. Frederick Zaldivar MD Chest X-Ray 08/26/16 0000 Signed Impressions: Service Date/Time: Friday, August 26, 2016 14:37 - CONCLUSION: 1. Status post intubation with the endotracheal tube tip approximately 5 cm above the chela. 2. Midinspiratory study with crowding of the lung vasculature. Frederick Zaldivar MD Objective Remarks GENERAL: Middle-aged male, critically ill currently orotracheally intubated SKIN: Warm and dry. HEAD: Atraumatic. Normocephalic. R frontal ventriculostomy with blood tinged CSF , patent. EYES: Pupils equal and round pinpoint. No scleral icterus. No injection or drainage. ENT: No nasal bleeding or discharge. Mucous membranes pink and moist. orotracheally intubated. NECK: Trachea midline. No JVD. CARDIOVASCULAR: Regular rate and rhythm. no appreciable murmur. RESPIRATORY: Clear to auscultation. Breath sounds equal bilaterally. mechanically ventilated. GASTROINTESTINAL: Abdomen soft, non-tender, nondistended. no guarding. MUSCULOSKELETAL: Extremities without difficulty peripheral edema. No obvious deformities. NEUROLOGICAL: Positive corneal reflex.. flaccid right upper extremity, withdrawals all other extremities to pain A/P Assessment and Plan Assessment: middle-aged male with large left basal ganglia ICH. His ICH score is 2, giving him an estimated 37% 30-day mortality. MRI, however, is positive for a number of other small hemorrhages which neurosurgery think may be related to possible amyloid angiopathy, and likely his prognosis is much poorer than initially estimated. His course is complicated by acute hyoxic and hypercarbic respiratory failure. We will continue our aggressive goals for now. Neuro/Psych: Left basal ganglia intraparenchymal hemorrhage s/p Right frontal ventriculostomy placement 08/26 CT head revealed left basal ganglia intraparenchymal hemorrhage 3.42 cm with extension to lateral ventricle, midline shift 5 mm to the right. Neurosurgery/Dr. Croft. Right frontal twist drill hole ventriculostomy at 10 cm H2O. . Neuro checks q1h Goal systolic blood pressure less than 140 on Cardene drip continue to normalize sodium. Keppra 500 IV every 12 hours each prophylaxis 7 days ICP currently well controlled -- EEG 08/30: generalized slowing, no seizure activity. CV: Hypertensive emergency Currently on Cardene drip continue amlodipine 10mg po daily continue labetalol 400mg po q8h add hydralazine 50mg po q8hr. goal SBP < 140. Resp: Acute hypoxic and hypercarbic respiratory failure PRVC Ventilator bundle As needed bronchodilator therapy Spontaneous breathing trials when clinically indicated, and cleared by neurosurgery, does not meet criteria today. wean fio2 for goal spo2 > 90%. HOB at 30 degrees. GI: Acute Protein Calorie Malnutrition-mild Constipation Nothing by mouth, tube feeds with Jevity Protonix for GI prophylaxis Colace/as needed Senokot for bowel regimen, + bowel movement yesterday. will back off bowel regimen. goal daily bowel movements. : Izaguirre for accurate I/Os in this critically ill patient Endo: Hyperglycemia of Critical Illness Sliding-scale insulin with Accu-Cheks every 4 hours to maintain euglycemia. Low regimen Renal: Intravascular hypervolemia Monitor renal function closely lasix 40mg iv BID today, goal net -1L. Heme: daily CBC. ID: Monitor for infection FEN: Hypokalemia Replace per ICU electrolyte protocol. MSK: PT evaluate and treat Access - Right IJ CVL 08/26 - arterial line - izaguirre Prophylaxis - GI - Protonix - DVT - SCDs/pharmacological prophylaxis contraindicated with intracranial hemorrhage Critical Care: The total critical care time was 33 minutes. Time to perform other separately billable procedures was not included in the critical care time. Mian Payan MD Aug 31, 2016 08:15
[2016-08-31] MEDS: hydrALAZINE HCL 50 MG TAB PO SCH ×3 (08:44→21:28)
[2016-08-31] MEDS: PANTOPRAZOLE SODIUM 40 MG VIAL IV SCH (08:44)
[2016-08-31] MEDS: SODIUM CHLORIDE 0.9% FLUSH 5 ML FLUSH IV FLUSH SCH ×2 (08:45→20:17)
[2016-08-31] MEDS: ARTIFICIAL TEARS OPTH SOLN 15 ML BTL EACH EYE SCH ×3 (08:45→17:22)
[2016-08-31] MEDS: DOCUSATE SODIUM 100 MG CAP PO SCH ×2 (08:45→20:17)
[2016-08-31] MEDS: FUROSEMIDE 40 MG/4 ML VIAL IV PUSH SCH ×2 (08:45→17:22)
[2016-08-31] MEDS: JUVEN POWDER 1 PACK G-TUBE SCH ×2 (08:45→20:17)
[2016-08-31] MEDS: POLYETHYLENE GLYCOL 17 GM PKG PO SCH ×2 (08:45→20:18)
[2016-08-31] MEDS: levETIRAcetam INJ 500 MG in SODIUM CHLORIDE 0.9% INJ 100 ML IV SCH ×2 (08:45→20:16)
[2016-08-31] MEDS: LACTULOSE SYRUP 20 GM/30 ML CUP PO SCH ×2 (08:45→20:18)
[2016-08-31] MEDS: SODIUM CHLORIDE 0.9% FLUSH 5 ML FLUSH IVF SCH (08:45)
[2016-08-31] MEDS: BISACODYL 10 MG SUPP RECTAL SCH (08:46)
--- NOTE | 2016-08-31 10:35 | HHI.NSPN ---
History Chief Complaint: Left basal ganglia hemorrhage Interval History Day 4 after left thalamic intraventricular hemorrhage. He has an EVD draining 219 cc in 29 hrs, ICP 10, well controlled. MRI showed multiple microbleeds in both hemispoheres consistent with angiopathy. 08/30/16 day 5 after left thalamic bleed, Low grade fevers, some discharge from the the nases sent for culture, still sedated and with EVD. GCS is 6 -7 on 250 of fentanyl and propofol, ICP 12. Review of Systems General: Positive for: fever Exam Results Vital Signs Date Time Temp Pulse Resp B/P Pulse Ox O2 Delivery O2 Flow Rate FiO2 08/31/16 08:00 45 08/31/16 08:00 99.1 88 15 139/60 97 08/29/16 08:23 Ventilator Intake and Output 08/30/16 08/30/16 08/31/16 08:00 16:00 00:00 Intake Total 1945 ml 2046 ml 729 ml Output Total 864.0 ml 2690.0 ml 510.0 ml Balance 1081.0 ml -644.0 ml 219.0 ml Physical Examination Heart: NSR . Abd: Soft positive bs Skin: No cyanosis or erythema. SCDs in place. Muscle: Not following for muscle testing. Neuro: Pt sedated on Diprivan and Fentanyl drips. Pt not opening eyes. Pupils 2mm bilaterally,with scleral edema, very slight reaction bilaterally. Not following commands. Ventriculostomy in place at 30ccF1M draining blood tinged CSF. Lab, Micro, Other Results Laboratory Tests Test 08/30/16 08/31/16 13:50 05:10 Blood Gas Puncture Site ART LINE Blood Gas Patient Temperature 98.6 Blood Gas HCO3 22 mmol/L Blood Gas Base Excess -2.3 mmol/L Blood Gas Oxygen Saturation 92 % Arterial Blood pH 7.39 Arterial Blood Partial 36 mmHg Pressure CO2 Arterial Blood Partial 70 mmHg Pressure O2 Arterial Blood Oxygen Content 13.7 Vol % Arterial Blood 1.7 % Carboxyhemoglobin Arterial Blood Methemoglobin 0.7 % Blood Gas Hemoglobin 10.6 G/DL Oxygen Delivery Device VENTILATOR Blood Gas Ventilator Setting PRVC/AC Blood Gas Inspired Oxygen 35 % White Blood Count 8.8 TH/MM3 Red Blood Count 2.91 MIL/MM3 Hemoglobin 9.7 GM/DL Hematocrit 27.6 % Mean Corpuscular Volume 94.8 FL Mean Corpuscular Hemoglobin 33.4 PG Mean Corpuscular Hemoglobin 35.2 % Concent Red Cell Distribution Width 12.7 % Platelet Count 137 TH/MM3 Mean Platelet Volume 11.0 FL Sodium Level 152 MEQ/L Potassium Level 3.3 MEQ/L Chloride Level 119 MEQ/L Carbon Dioxide Level 23.1 MEQ/L Anion Gap 10 MEQ/L Blood Urea Nitrogen 20 MG/DL Creatinine 0.82 MG/DL Estimat Glomerular Filtration 81 ML/MIN Rate Random Glucose 87 MG/DL Calcium Level 8.2 MG/DL Medical Decision Making Impression and Plan Day 5 after left thalamic bleed, stable intracranial pressures and perfusion pressures, limited neurologic exam. Supportive care, tube feeds, DVT and PUD prophylaxis per ICU protocol. He remains critically ill. Total Minutes: 10 Alessio Hess Aug 31, 2016 10:35
[2016-08-31 15:28] LABS: POTASSIUM 3.3 MEQ/L (3.5-5.1)
[2016-08-31] MEDS: POTASSIUM CL 40 MEQ/30 ML LIQ UDC PO/TUBE PRN (15:41)
[2016-08-31] MEDS: hydrALAZINE HCL 20 MG/ML VIAL IV PUSH PRN ×2 (16:25→18:57)
[2016-08-31] MEDS: niCARdipine INJ 25 MG in SODIUM CHLOR 0.9% 250 ML INJ 250 ML IV SCH (17:22)
[2016-08-31] MEDS: RESP: ALBUTEROL 2.5 MG/IPRATROPIUM 0.5 MG NEB (PRN) INH (19:49)
[2016-09-01] VITALS (15 sets, daily range): BP systolic 137–166; BP diastolic 58–78; PULSE 80–98; RESP 15; TEMP 99–99.7; O2SAT 93–97
[2016-09-01] MEDS: hydrALAZINE HCL 20 MG/ML VIAL IV PUSH PRN ×7 (03:29→22:49)
[2016-09-01] MEDS: INSULIN NovoLIN REGULAR SUPPLEMENTAL SCALE SQ SCH ×6 (04:00→19:51)
[2016-09-01] MEDS: FREE WATER G-TUBE SCH ×6 (04:00→19:49)
[2016-09-01] MEDS: CHLORHEXIDINE GLUCONATE 2 % 1 PACK (2 CLOTHS) TOP SCH (04:00)
[2016-09-01] MEDS: LABETALOL HCL 200 MG TAB PO SCH ×3 (05:37→21:15)
[2016-09-01] MEDS: hydrALAZINE HCL 50 MG TAB PO SCH ×3 (05:37→21:15)
[2016-09-01 06:50] LABS: HEMATOCRIT 27.8 % (39.0-51.0); MEAN CELL VOLUME 96.6 FL (80.0-100.0); MEAN CORPUSCULAR HEMOGLOBIN 33.4 PG (27.0-34.0); MEAN CORPUSCULAR HGB CONC 34.5 % (32.0-36.0); PLATELET COUNT 143 TH/MM3 (150-450); RED BLOOD COUNT 2.88 MIL/MM3 (4.50-5.90); RED CELL DISTRIBUTION WIDTH 12.9 % (11.6-17.2); REVIEW FLAG FINAL; WHITE BLOOD COUNT 8.5 TH/MM3 (4.0-11.0)
--- NOTE | 2016-09-01 07:19 | HHI.CCPN ---
Subjective Remarks/Hospital Course This is a middle-aged male. Date of admission 08/26/2016. Past medical history is unknown. His real name is Rafy Ruiz. Haritha Ruiz [phone] is the health proxy. Per ED report, patient was acute onset 1 hour prior to admission of right upper and lower extremity weakness and dysarthria. Upon presentation to the ED, patient was quite hypertensive and had decreased responsiveness. Patient was intubated by ED physician. [address] head revealed a left intraparenchymal hemorrhage/basal ganglia with extension to the lateral ventricle with a 5 mm shift to the right. Neurosurgery was consulted/Dr. Croft who placed Right frontal ventriculostomy. Laboratories reveal potassium 2.8. Currently on Cardene drip at 15 mg an hour. SUBJ: Remains intubated, on fentanyl. Propofol on hold. On Cardene infusion at 1mg per hour. Ventric with 87 ml blood-tinged CSF since placement. ICP well controlled,. Patient's [id number] is at the bedside, is in [place] 08/28: continues to have poor neurologic exam. on Cardene at 5mg/hr this AM. EVD with blood-tinged CSF, patent. ICP controlled. not yet on sedation hold this AM to my exam. 08/29: no change in neuro exam. cardene persists for blood pressure control. 08/30: encephalopathy persists. still on cardene at 5mg/hr for blood pressure. 08/31: hypernatremia persists. poor neuro exam still. unable to tolerate sedation holiday due to hypertension. labetalol increased yesterday with only mild improvements. did not diurese well with lasix 20 yesterday. 09/01: Remains off sedation since yesterday. Appears to localize with left upper extremity. Blood pressure control improved. Urine output excellent 3.9 L in 24 hours, EVD with 192 mL output in 24 hours Objective Vital Signs Date Time Temp Pulse Resp B/P Pulse Ox O2 Delivery O2 Flow Rate FiO2 09/01/16 04:00 99.6 93 15 142/58 95 09/01/16 04:00 45 08/29/16 08:23 Ventilator Intake and Output 08/31/16 08/31/16 09/01/16 08:00 16:00 00:00 Intake Total 612 ml 1321 ml 770 ml Output Total 520.0 ml 1945.0 ml 1255 ml Balance 92.0 ml -624.0 ml -485 ml Result Diagram: 09/01/16 0630 08/31/16 1500 Imaging Last Impressions Head CT 08/26/16 0000 Signed Impressions: Service Date/Time: Friday, August 26, 2016 15:41 - CONCLUSION: 1. Large intraparenchymal hemorrhage in the left basal ganglia with extension into left lateral ventricle. 2. Surrounding edema and mild midline shift to the right. Frederick Zaldivar MD Chest X-Ray 08/26/16 0000 Signed Impressions: Service Date/Time: Friday, August 26, 2016 14:37 - CONCLUSION: 1. Status post intubation with the endotracheal tube tip approximately 5 cm above the chela. 2. Midinspiratory study with crowding of the lung vasculature. Frederick Zaldivar MD Objective Remarks GENERAL: Middle-aged male, critically ill currently orotracheally intubated SKIN: Warm and dry. HEAD: Atraumatic. Normocephalic. R frontal ventriculostomy with blood tinged CSF , patent. 192 ml output in 24 hours EYES: Pupils equal and round pinpoint. No scleral icterus. No injection or drainage. ENT: No nasal bleeding or discharge. Mucous membranes pink and moist. orotracheally intubated. NECK: Trachea midline. No JVD. CARDIOVASCULAR: Regular rate and rhythm. no appreciable murmur. RESPIRATORY: Clear to auscultation. Breath sounds equal bilaterally. mechanically ventilated. GASTROINTESTINAL: Abdomen soft, non-tender, nondistended. no guarding. MUSCULOSKELETAL: Extremities without difficulty peripheral edema. No obvious deformities. NEUROLOGICAL: Positive corneal reflex. flaccid right upper extremity, appears to localize with left upper extremity and slightly withdraws lower extremities to pain Urinary Catheter: Yes Assessment to: Continue Vascular Central Line Catheter: Yes Assessment to: Continue A/P Assessment and Plan Assessment: middle-aged male with large left basal ganglia ICH. His ICH score is 2, giving him an estimated 37% 30-day mortality. MRI, however, is positive for a number of other small hemorrhages which neurosurgery think may be related to possible amyloid angiopathy, and likely his prognosis is much poorer than initially estimated. His course is complicated by acute hyoxic and hypercarbic respiratory failure. We will continue our aggressive goals for now. Neuro/Psych: Left basal ganglia intraparenchymal hemorrhage s/p Right frontal ventriculostomy placement 08/[address] head revealed left basal ganglia intraparenchymal hemorrhage 3.42 cm with extension to lateral ventricle, midline shift 5 mm to the right. Neurosurgery/Dr. Croft. Right frontal twist drill hole ventriculostomy. Neuro checks q1h Goal systolic blood pressure less than 140 continue to keep Na 145-150 Keppra 500 IV every 12 hours each prophylaxis 7 days ICP currently well controlled -- EEG 08/30: generalized slowing, no seizure activity. CV: Hypertensive emergency Currently off Cardene drip continue amlodipine 10mg po daily continue labetalol 400mg po q8h continue hydralazine 50mg po q8hr. goal SBP < 140. Resp: Acute hypoxic and hypercarbic respiratory failure PRVC Ventilator bundle As needed bronchodilator therapy Spontaneous breathing trials when clinically indicated, and cleared by neurosurgery, does not meet criteria today. wean fio2 for goal spo2 > 90%. HOB at 30 degrees. CXR today GI: Acute Protein Calorie Malnutrition-mild Constipation Tube feeds with Jevity, having BM Protonix for GI prophylaxis Colace/as needed Senokot for bowel regimen. goal daily bowel movements. : Izaguirre for accurate I/Os in this critically ill patient Endo: Hyperglycemia of Critical Illness Sliding-scale insulin with Accu-Cheks every 4 hours to maintain euglycemia. Low regimen Renal: Intravascular hypervolemia Monitor renal function closely Started on lasix 40mg iv BID 08/31, will reduce to 20 BID Heme: daily CBC. ID: Monitor for infection FEN: Hypokalemia Replace per ICU electrolyte protocol. MSK: PT evaluate and treat Access - Right IJ CVL 08/26 - arterial line - izaguirre Prophylaxis - GI - Protonix - DVT - SCDs/pharmacological prophylaxis contraindicated with intracranial hemorrhage Critical Care: The total critical care time was 35 minutes. Time to perform other separately billable procedures was not included in the critical care time. Manoj Cameron MD Sep 01, 2016 07:19
[2016-09-01 07:23] LABS: BICARBONATE 26.3 MEQ/L (21.0-32.0); POTASSIUM 3.6 MEQ/L (3.5-5.1)
[2016-09-01] MEDS: RESP: ALBUTEROL 2.5 MG/IPRATROPIUM 0.5 MG NEB (PRN) INH (07:42)
[2016-09-01] MEDS: LABETALOL HCL 100 MG/20 ML VIAL IV PRN ×6 (07:46→22:51)
[2016-09-01] MEDS: PANTOPRAZOLE SODIUM 40 MG VIAL IV SCH (07:46)
[2016-09-01] MEDS: FUROSEMIDE 40 MG/4 ML VIAL IV PUSH SCH ×2 (07:46→17:19)
[2016-09-01] MEDS: levETIRAcetam INJ 500 MG in SODIUM CHLORIDE 0.9% INJ 100 ML IV SCH ×2 (07:46→19:51)
[2016-09-01] MEDS: ARTIFICIAL TEARS OPTH SOLN 15 ML BTL EACH EYE SCH ×3 (07:47→17:19)
[2016-09-01] MEDS: CHLORHEXIDINE 0.12% (ORAL KIT) 15 ML CUP MT SCH ×2 (07:47→19:50)
[2016-09-01] MEDS: SODIUM CHLORIDE 0.9% FLUSH 5 ML FLUSH IV FLUSH SCH ×2 (08:01→19:53)
[2016-09-01] MEDS: DOCUSATE SODIUM 100 MG CAP PO SCH ×2 (08:02→19:53)
[2016-09-01] MEDS: LACTULOSE SYRUP 20 GM/30 ML CUP PO SCH ×2 (08:02→19:53)
[2016-09-01] MEDS: POLYETHYLENE GLYCOL 17 GM PKG PO SCH ×2 (08:02→19:53)
[2016-09-01] MEDS: BISACODYL 10 MG SUPP RECTAL SCH (08:02)
[2016-09-01 08:19] LABS: BLOOD GAS BASE EXCESS 1.2 mmol/L (-2-2); BLOOD GAS CARBOXYHEMOGLOBIN 1.8 % (0-4); BLOOD GAS HCO3 24 mmol/L (22-26); BLOOD GAS METHEMOGLOBIN 0.6 % (0-2); BLOOD GAS O2 HGB SATURATION 96 % (90-100); BLOOD GAS OXYGEN CONTENT 13.9 Vol % (12.0-20.0); BLOOD GAS PCO2 33 mmHg (38-42); BLOOD GAS PO2 100 mmHg (61-120); BLOOD GAS TOTAL HGB 10.2 G/DL (12.0-16.0); CRITICAL VALUE NO; OXYGEN DEVICE VENTILATOR; TEMP CORR TO 98.6
[2016-09-01 08:20] LABS: DRAW SITE ART LINE; FIO2 45 %; STAT NO; VENT SETTINGS PRVC/AC
--- NOTE | 2016-09-01 08:28 | RADRPT ---
EXAM DATE/TIME: 09/01/2016 08:00 [facility] COMPARISON: CHEST SINGLE AP, August 28, 2016, 3:00. INDICATIONS: Evaluate for pulmonary disease. MEDICAL HISTORY: Unobtainable. SURGICAL HISTORY: Unobtainable. ENCOUNTER: Subsequent ACUITY: 4 - 6 days PAIN SCORE: Non-responsive. LOCATION: Bilateral chest FINDINGS: ET tube, central venous catheter, nasogastric tube are in good position. Bibasilar consolidative liam nges are evident increasing in the interval. Small bilateral pleural effusions are noted worse on th e right than the left. Effusions are small. CONCLUSION: Increasing bibasilar consolidative changes. Vargas Freitas MD FACR on September 01, 2016 at 8:19 Board Certified Radiologist. This report was verified electronically.
[2016-09-01] MEDS: SODIUM CHLORIDE 0.9% FLUSH 5 ML FLUSH IVF SCH (09:00)
[2016-09-01] MEDS: JUVEN POWDER 1 PACK G-TUBE SCH ×2 (09:00→19:53)
--- NOTE | 2016-09-01 09:16 | HHI.NSPN ---
(Sergey Melton) History Chief Complaint: Left basal ganglia hemorrhage (Sergey Melton) Interval History This is a middle-aged gentleman who apparently was brought to [facility] Emergency Room with acute onset of right-sided weakness and slurred speech. He was hypertensive on presentation and had a declining neurologic examination requiring intubation for airway control with ventilator support. CT scan of the head obtained reveals a basal ganglia hemorrhage on the left side measuring about 3.4 cm in diameter. There is also extension of the hemorrhage into the left lateral ventricle. No hydrocephalus is noted, although left temporal horn is dilated. Currently there is no friends or family members here to relate a history and his identity is unknown. 08/27/16: Pt sedated on Diprivan. Not opening eyes. Not following commands. Pupils 2mm bilaterally slight reaction bilaterally. 08/28/16: Pt sedated on Diprivan. Not opening eyes. Pupils 2mm bilaterally slight brisk reaction. Not following commands. 08/29/16: Pt sedated with Diprivan and Fentanyl drips. Not opening eyes. Pupils 2mm bilaterally slight brisk reaction. Not following commands. 09/01/16: Pt off sedation. Not opening eyes. Pupils 3mm bilaterally reactive. Not following commands. Ventriculostomy in place. ICP 18 after stimulation. (Sergey Melton) System Review Comments Not able to obtain given clinical status. (Sergey Melton) Exam Results Vital Signs Date Time Temp Pulse Resp B/P Pulse Ox O2 Delivery O2 Flow Rate FiO2 09/01/16 07:50 97 45 09/01/16 04:00 99.6 93 15 142/58 08/29/16 08:23 Ventilator Intake and Output 08/31/16 08/31/16 09/01/16 08:00 16:00 00:00 Intake Total 612 ml 1321 ml 770 ml Output Total 520.0 ml 1945.0 ml 1255 ml Balance 92.0 ml -624.0 ml -485 ml (Sergey Melton) Physical Examination Heart: NSR. No murmurs. Resp: CTA bilaterally. Intubated. FiO2 45%. PEEP 5 Pressure controlled rate 15. Abd: Soft positive bs. TFs at 50cc/hr. Skin: No cyanosis or erythema. SCDs in place. Muscle: Not following for muscle testing. Withdraws left side to pain, right hemiparesis. Neuro: Pt off sedative drips. Pt not opening eyes. Pupils 2mm bilaterally, with scleral edema, very slight reaction bilaterally. Not following commands. Ventriculostomy in place at [id number] draining blood tinged CSF. (Sergey Melton) Lab, Micro, Other Results Last Impressions Chest X-Ray 08/28/16 0600 Signed Impressions: Service Date/Time: August 03:00 - CONCLUSION: Left basilar atelectasis. Benny Riojas MD Head Magnetic Resonance Angiography 08/27/16 0000 Signed Impressions: Service Date/Time: Saturday, August 27, 2016 16:49 - CONCLUSION: Negative MRA of the brain. Vargas Freitas MD FACR Brain MRI 08/27/16 0000 Signed Impressions: Service Date/Time: Saturday, August 27, 2016 16:49 - CONCLUSION: 1. Large thalamic hemorrhage as described above. Extensive periventricular white matter changes are noted. There is compression of the third ventricle. Ventriculostomy is seen in the right lateral ventricle. 2. Hemorrhage does extend down the white matter tracts to the level of the right cerebral peduncle. Vargas Freitas MD FACR Head CT 08/26/16 0000 Signed Impressions: Service Date/Time: Friday, August 26, 2016 15:41 - CONCLUSION: 1. Large intraparenchymal hemorrhage in the left basal ganglia with extension into left lateral ventricle. 2. Surrounding edema and mild midline shift to the right. Frederick Zaldivar MD Laboratory Tests Test 08/31/16 09/01/16 09/01/16 15:00 06:30 08:04 Sodium Level 149 MEQ/L 148 MEQ/L Potassium Level 3.3 MEQ/L 3.6 MEQ/L Chloride Level 116 MEQ/L 114 MEQ/L Carbon Dioxide Level 26.0 MEQ/L 26.3 MEQ/L Anion Gap 7 MEQ/L 8 MEQ/L Blood Urea Nitrogen 24 MG/DL 30 MG/DL Creatinine 0.88 MG/DL 0.90 MG/DL Estimat Glomerular Filtration 75 ML/MIN 73 ML/MIN Rate Random Glucose 126 MG/DL 156 MG/DL Calcium Level 8.4 MG/DL 8.7 MG/DL White Blood Count 8.5 TH/MM3 Red Blood Count 2.88 MIL/MM3 Hemoglobin 9.6 GM/DL Hematocrit 27.8 % Mean Corpuscular Volume 96.6 FL Mean Corpuscular Hemoglobin 33.4 PG Mean Corpuscular Hemoglobin 34.5 % Concent Red Cell Distribution Width 12.9 % Platelet Count 143 TH/MM3 Mean Platelet Volume 10.8 FL Blood Gas Puncture Site ART LINE Blood Gas Patient Temperature 98.6 Blood Gas HCO3 24 mmol/L Blood Gas Base Excess 1.2 mmol/L Blood Gas Oxygen Saturation 96 % Arterial Blood pH 7.49 Arterial Blood Partial 33 mmHg Pressure CO2 Arterial Blood Partial 100 mmHg Pressure O2 Arterial Blood Oxygen Content 13.9 Vol % Arterial Blood 1.8 % Carboxyhemoglobin Arterial Blood Methemoglobin 0.6 % Blood Gas Hemoglobin 10.2 G/DL Oxygen Delivery Device VENTILATOR Blood Gas Ventilator Setting PRVC/AC Blood Gas Inspired Oxygen 45 % 08/31/16 08/31/16 09/01/16 15:00 23:00 07:00 Intake Total 1321 ml 770 ml 765 ml Output Total 1885.0 ml 1315.0 ml 1072 ml Balance -564.0 ml -545.0 ml -307 ml Intake IV Total 695 ml 258 ml 145 ml Tube Feeding 326 ml 312 ml 420 ml Other 300 ml 200 ml 200 ml Output Urine Total 1700 ml 1200 ml 1000 ml Gastric Drainage Total 60 ml Tube Feeding Residual Discard 60.0 ml 60.0 ml Drainage Total 65 ml 55 ml 72 ml # Bowel Movements 1 2 1 (Sergey Melton) Medical Decision Making Impression and Plan A: M with Left basal ganglia hemorrhage with intraventricular extension with mild hydrocephalus. This is a characteristic of a hypertensive bleed. 2. Unregulated hypertension. 3. Respiratory failure secondary to the intracranial hemorrhage. PLAN Continue with ventriculostomy drain Continue with blood pressure control Continue with critical care- intubation. (Sergey Melton) Attending Statement The exam, history, and the medical decision-making described in the above note were completed with the assistance of the mid-level provider. I reviewed and agree with the findings presented. I attest that I had a [id number] encounter with the patient on the same day, and personally performed and documented my assessment and findings in the medical record. ICPs remain normal with ventriculostomy at 15 cm level; we'll challenge to 20 cm level and continue weaning sedation as tolerated. (Jeff Croft MD) Sergey Melton Sep 01, 2016 09:16 Jeff Croft MD Sep 01, 2016 16:34
[2016-09-01] MEDS: ACETAMINOPHEN 325 MG TAB PO PRN (10:18)
[2016-09-01] MEDS: niCARdipine INJ 25 MG in SODIUM CHLOR 0.9% 250 ML INJ 250 ML IV SCH (22:49)
[2016-09-02] VITALS (16 sets, daily range): BP systolic 136–146; BP diastolic 60–88; PULSE 71–111; RESP 15–16; TEMP 99–99.7; O2SAT 92–97
[2016-09-02] MEDS: FREE WATER G-TUBE SCH ×7 (04:00→23:45)
[2016-09-02] MEDS: CHLORHEXIDINE GLUCONATE 2 % 1 PACK (2 CLOTHS) TOP SCH (04:00)
[2016-09-02] MEDS: LABETALOL HCL 200 MG TAB PO SCH ×3 (05:51→21:19)
[2016-09-02] MEDS: hydrALAZINE HCL 50 MG TAB PO SCH ×3 (05:51→21:19)
[2016-09-02] MEDS: INSULIN NovoLIN REGULAR SUPPLEMENTAL SCALE SQ SCH ×7 (05:54→23:44)
[2016-09-02 07:06] LABS: AUTOMATED NEUTROPHIL # 6.5 TH/MM3 (1.8-7.7); BASOPHIL % 0.2 % (0.0-2.0); EOSINOPHIL % 0.1 % (0.0-4.0); HEMATOCRIT 27.1 % (39.0-51.0); HEMO FLAGS DIFF FINAL; LYMPHOCYTE # 0.7 TH/MM3 (1.0-4.8); MEAN CELL VOLUME 96.3 FL (80.0-100.0); MEAN CORPUSCULAR HGB CONC 34.3 % (32.0-36.0); MONO % 9.9 % (0.0-8.0); NEUT % 80.8 % (16.0-70.0); PLATELET COUNT 177 TH/MM3 (150-450); RED BLOOD COUNT 2.81 MIL/MM3 (4.50-5.90); RED CELL DISTRIBUTION WIDTH 12.9 % (11.6-17.2); WHITE BLOOD COUNT 8.1 TH/MM3 (4.0-11.0)
[2016-09-02 07:31] LABS: ALT (GPT) 133 U/L (12-78); ANION GAP 9 MEQ/L (5-15); AST (GOT) 89 U/L (15-37); BICARBONATE 26.7 MEQ/L (21.0-32.0); BLOOD UREA NITROGEN 38 MG/DL (7-18); CHLORIDE 112 MEQ/L (98-107); GLOMERULAR FILTRATION RATE 62 ML/MIN (>89); MAGNESIUM 2.8 MG/DL (1.5-2.5); POTASSIUM 3.2 MEQ/L (3.5-5.1); SODIUM (NA) 148 MEQ/L (136-145)
[2016-09-02 07:33] LABS: ALKALINE PHOSPHATASE 100 U/L (45-117); TOTAL BILIRUBIN ADULT 1.2 MG/DL (0.2-1.0)
[2016-09-02] MEDS: RESP: ALBUTEROL 2.5 MG/IPRATROPIUM 0.5 MG NEB (PRN) INH (07:59)
[2016-09-02] MEDS: CHLORHEXIDINE 0.12% (ORAL KIT) 15 ML CUP MT SCH ×2 (08:00→20:06)
[2016-09-02] MEDS: LACTULOSE SYRUP 20 GM/30 ML CUP PO SCH ×2 (08:40→20:07)
[2016-09-02] MEDS: PANTOPRAZOLE SODIUM 40 MG VIAL IV SCH (08:40)
[2016-09-02] MEDS: FUROSEMIDE 40 MG/4 ML VIAL IV PUSH SCH ×2 (08:40→17:32)
[2016-09-02] MEDS: SODIUM CHLORIDE 0.9% FLUSH 5 ML FLUSH IV FLUSH SCH ×2 (08:40→20:31)
[2016-09-02] MEDS: levETIRAcetam INJ 500 MG in SODIUM CHLORIDE 0.9% INJ 100 ML IV SCH (08:40)
[2016-09-02] MEDS: DOCUSATE SODIUM 100 MG CAP PO SCH ×2 (08:40→20:07)
[2016-09-02] MEDS: ARTIFICIAL TEARS OPTH SOLN 15 ML BTL EACH EYE SCH ×3 (08:41→17:32)
[2016-09-02] MEDS: JUVEN POWDER 1 PACK G-TUBE SCH ×2 (08:41→20:07)
[2016-09-02] MEDS: SODIUM CHLORIDE 0.9% FLUSH 5 ML FLUSH IVF SCH (08:41)
[2016-09-02] MEDS: POLYETHYLENE GLYCOL 17 GM PKG PO SCH ×2 (08:41→20:07)
[2016-09-02] MEDS: BISACODYL 10 MG SUPP RECTAL SCH (08:41)
--- NOTE | 2016-09-02 09:55 | HHI.NSPN ---
(Sergey Melton) History Chief Complaint: Left basal ganglia hemorrhage (Sergey Melton) Interval History This is a middle-aged gentleman who apparently was brought to [facility] Emergency Room with acute onset of right-sided weakness and slurred speech. He was hypertensive on presentation and had a declining neurologic examination requiring intubation for airway control with ventilator support. CT scan of the head obtained reveals a basal ganglia hemorrhage on the left side measuring about 3.4 cm in diameter. There is also extension of the hemorrhage into the left lateral ventricle. No hydrocephalus is noted, although left temporal horn is dilated. Currently there is no friends or family members here to relate a history and his identity is unknown. 08/27/16: Pt sedated on Diprivan. Not opening eyes. Not following commands. Pupils 2mm bilaterally slight reaction bilaterally. 08/28/16: Pt sedated on Diprivan. Not opening eyes. Pupils 2mm bilaterally slight brisk reaction. Not following commands. 08/29/16: Pt sedated with Diprivan and Fentanyl drips. Not opening eyes. Pupils 2mm bilaterally slight brisk reaction. Not following commands. 09/01/16: Pt off sedation. Not opening eyes. Pupils 3mm bilaterally reactive. Not following commands. Ventriculostomy in place. ICP 18 after stimulation. 09/02/16: Pt off sedation. Not opening eyes to pain. Pupils 3mm bilaterally reactive bilaterally. Not following commands. ICP 11 with ventriculostomy drain at [id number]. (Sergey Melton) System Review Comments Not able to obtain given clinical status. (Sergey Melton) Exam Results Vital Signs Date Time Temp Pulse Resp B/P Pulse Ox O2 Delivery O2 Flow Rate FiO2 09/02/16 08:00 45 09/02/16 08:00 99.0 71 15 143/65 93 08/29/16 08:23 Ventilator Intake and Output 09/01/16 09/01/16 09/02/16 08:00 16:00 00:00 Intake Total 765 ml 687 ml 861 ml Output Total 1072 ml 1923 ml 1065 ml Balance -307 ml -1236 ml -204 ml (Sergey Melton) Physical Examination Heart: NSR. No murmurs. Resp: CTA bilaterally. Intubated. FiO2 50%. PEEP 5 Pressure controlled rate 16. Abd: Soft positive bs. Skin: No cyanosis or erythema. SCDs in place. Muscle: Not following for muscle testing. Withdraws left side to pain. right hemiparesis. Neuro: Pt off sedative drips. Pt not opening eyes. Pupils 2mm bilaterally, with scleral edema, very slight reaction bilaterally. Not following commands. Ventriculostomy in place at [id number] draining blood tinged CSF. ICP 11. ( Sergey Melton) Lab, Micro, Other Results Last Impressions Chest X-Ray 09/01/16 0000 Signed Impressions: Service Date/Time: Thursday, September 01, 2016 08:00 - CONCLUSION: Increasing bibasilar consolidative changes. Vargas Freitas MD FACR Head Magnetic Resonance Angiography 08/27/16 0000 Signed Impressions: Service Date/Time: Saturday, August 27, 2016 16:49 - CONCLUSION: Negative MRA of the brain. Vargas Freitas MD FACR Brain MRI 08/27/16 0000 Signed Impressions: Service Date/Time: Saturday, August 27, 2016 16:49 - CONCLUSION: 1. Large thalamic hemorrhage as described above. Extensive periventricular white matter changes are noted. There is compression of the third ventricle. Ventriculostomy is seen in the right lateral ventricle. 2. Hemorrhage does extend down the white matter tracts to the level of the right cerebral peduncle. Vargas Freitas MD FACR Head CT 08/26/16 0000 Signed Impressions: Service Date/Time: Friday, August 26, 2016 15:41 - CONCLUSION: 1. Large intraparenchymal hemorrhage in the left basal ganglia with extension into left lateral ventricle. 2. Surrounding edema and mild midline shift to the right. Frederick Zaldivar MD Laboratory Tests Test 09/02/16 06:34 White Blood Count 8.1 TH/MM3 Red Blood Count 2.81 MIL/MM3 Hemoglobin 9.3 GM/DL Hematocrit 27.1 % Mean Corpuscular Volume 96.3 FL Mean Corpuscular Hemoglobin 33.0 PG Mean Corpuscular Hemoglobin 34.3 % Concent Red Cell Distribution Width 12.9 % Platelet Count 177 TH/MM3 Mean Platelet Volume 10.6 FL Neutrophils (%) (Auto) 80.8 % Lymphocytes (%) (Auto) 9.0 % Monocytes (%) (Auto) 9.9 % Eosinophils (%) (Auto) 0.1 % Basophils (%) (Auto) 0.2 % Neutrophils # (Auto) 6.5 TH/MM3 Lymphocytes # (Auto) 0.7 TH/MM3 Monocytes # (Auto) 0.8 TH/MM3 Eosinophils # (Auto) 0.0 TH/MM3 Basophils # (Auto) 0.0 TH/MM3 CBC Comment DIFF FINAL Differential Comment Sodium Level 148 MEQ/L Potassium Level 3.2 MEQ/L Chloride Level 112 MEQ/L Carbon Dioxide Level 26.7 MEQ/L Anion Gap 9 MEQ/L Blood Urea Nitrogen 38 MG/DL Creatinine 1.04 MG/DL Estimat Glomerular Filtration 62 ML/MIN Rate Random Glucose 133 MG/DL Calcium Level 8.9 MG/DL Magnesium Level 2.8 MG/DL Total Bilirubin 1.2 MG/DL Aspartate Amino Transf 89 U/L (AST/SGOT) Alanine Aminotransferase 133 U/L (ALT/SGPT) Alkaline Phosphatase 100 U/L Total Protein 6.3 GM/DL Albumin 2.2 GM/DL 09/01/16 09/01/16 09/02/16 15:00 23:00 07:00 Intake Total 687 ml 861 ml 922 ml Output Total 1923 ml 1065 ml 880 ml Balance -1236 ml -204 ml 42 ml Intake IV Total 269 ml 256 ml 312 ml Tube Feeding 418 ml 355 ml 410 ml Other 250 ml 200 ml Output Urine Total 1850 ml 1000 ml 800 ml Drainage Total 73 ml 65 ml 80 ml # Bowel Movements 1 1 1 (Sergey Melton) Medical Decision Making Impression and Plan A: M with Left basal ganglia hemorrhage with intraventricular extension with mild hydrocephalus. This is a characteristic of a hypertensive bleed. 2. Unregulated hypertension. 3. Respiratory failure secondary to the intracranial hemorrhage. PLAN Continue with ventriculostomy drain Continue with blood pressure control Continue with critical care- intubation. (Sergey Melton) Attending Statement The exam, history, and the medical decision-making described in the above note were completed with the assistance of the mid-level provider. I reviewed and agree with the findings presented. I attest that I had a [id number] encounter with the patient on the same day, and personally performed and documented my assessment and findings in the medical record. ICPs normal with the ventriculostomy at 20 cm level. We will proceed with ventriculostomy clamping trials. Wean sedation and ventilator status as tolerated. (Jeff Croft MD) Sergey Melton Sep 02, 2016 09:55 Jeff Croft MD Sep 02, 2016 14:35
[2016-09-02] MEDS: hydrALAZINE HCL 20 MG/ML VIAL IV PUSH PRN ×3 (11:25→20:35)
[2016-09-02] MEDS: POTASSIUM CHLOR 40 MEQ PREMIX 100 ML IV PRN ×2 (11:45→12:43)
[2016-09-02] MEDS: LABETALOL HCL 100 MG/20 ML VIAL IV PRN (17:48)
--- NOTE | 2016-09-02 17:53 | HHI.CCPN ---
Subjective Remarks/Hospital Course This is a middle-aged male. Date of admission 08/26/2016. Past medical history is unknown. His real name is Rafy Ruiz. Haritha Ruiz [phone] is the health proxy. Per ED report, patient was acute onset 1 hour prior to admission of right upper and lower extremity weakness and dysarthria. Upon presentation to the ED, patient was quite hypertensive and had decreased responsiveness. Patient was intubated by ED physician. [address] head revealed a left intraparenchymal hemorrhage/basal ganglia with extension to the lateral ventricle with a 5 mm shift to the right. Neurosurgery was consulted/Dr. Croft who placed Right frontal ventriculostomy. Laboratories reveal potassium 2.8. Currently on Cardene drip at 15 mg an hour. SUBJ: Remains intubated, on fentanyl. Propofol on hold. On Cardene infusion at 1mg per hour. Ventric with 87 ml blood-tinged CSF since placement. ICP well controlled,. Patient's [id number] is at the bedside, is in [place] 08/28: continues to have poor neurologic exam. on Cardene at 5mg/hr this AM. EVD with blood-tinged CSF, patent. ICP controlled. not yet on sedation hold this AM to my exam. 08/29: no change in neuro exam. cardene persists for blood pressure control. 08/30: encephalopathy persists. still on cardene at 5mg/hr for blood pressure. 08/31: hypernatremia persists. poor neuro exam still. unable to tolerate sedation holiday due to hypertension. labetalol increased yesterday with only mild improvements. did not diurese well with lasix 20 yesterday. 09/01: Remains off sedation since yesterday. Appears to localize with left upper extremity. Blood pressure control improved. Urine output excellent 3.9 L in 24 hours, EVD with 192 mL output in 24 hours 09/02: No improvement in neurological function. Objective Vital Signs Date Time Temp Pulse Resp B/P Pulse Ox O2 Delivery O2 Flow Rate FiO2 09/02/16 16:00 45 09/02/16 16:00 99.1 83 16 141/76 94 08/29/16 08:23 Ventilator Intake and Output 09/01/16 09/01/16 09/02/16 08:00 16:00 00:00 Intake Total 765 ml 687 ml 861 ml Output Total 1072 ml 1923 ml 1065 ml Balance -307 ml -1236 ml -204 ml Result Diagram: 09/02/16 0634 09/02/16 0634 Imaging Last Impressions Head CT 08/26/16 0000 Signed Impressions: Service Date/Time: Friday, August 26, 2016 15:41 - CONCLUSION: 1. Large intraparenchymal hemorrhage in the left basal ganglia with extension into left lateral ventricle. 2. Surrounding edema and mild midline shift to the right. Frederick Zaldivar MD Chest X-Ray 08/26/16 0000 Signed Impressions: Service Date/Time: Friday, August 26, 2016 14:37 - CONCLUSION: 1. Status post intubation with the endotracheal tube tip approximately 5 cm above the chela. 2. Midinspiratory study with crowding of the lung vasculature. Frederick Zaldiavr MD Objective Remarks GENERAL: Middle-aged male, critically ill currently orotracheally intubated SKIN: Warm and dry. HEAD: Atraumatic. Normocephalic. R frontal ventriculostomy with blood tinged CSF , patent. 192 ml output in 24 hours EYES: Pupils equal and round pinpoint. No scleral icterus. No injection or drainage. ENT: No nasal bleeding or discharge. Mucous membranes pink and moist. orotracheally intubated. NECK: Trachea midline. No JVD. CARDIOVASCULAR: Regular rate and rhythm. no appreciable murmur. RESPIRATORY: Clear to auscultation. Breath sounds equal bilaterally. mechanically ventilated. GASTROINTESTINAL: Abdomen soft, non-tender, nondistended. no guarding. MUSCULOSKELETAL: Extremities without difficulty peripheral edema. No obvious deformities. NEUROLOGICAL: Positive corneal reflex. flaccid right upper extremity, appears to localize with left upper extremity and slightly withdraws lower extremities to pain A/P Assessment and Plan Assessment: middle-aged male with large left basal ganglia ICH. His ICH score is 2, giving him an estimated 37% 30-day mortality. MRI, however, is positive for a number of other small hemorrhages which neurosurgery think may be related to possible amyloid angiopathy, and likely his prognosis is much poorer than initially estimated. His course is complicated by acute hyoxic and hypercarbic respiratory failure. We will continue our aggressive goals for now. Neuro/Psych: Left basal ganglia intraparenchymal hemorrhage s/p Right frontal ventriculostomy placement 08/[address] head revealed left basal ganglia intraparenchymal hemorrhage 3.42 cm with extension to lateral ventricle, midline shift 5 mm to the right. Neurosurgery/Dr. Croft. Right frontal twist drill hole ventriculostomy. Neuro checks q1h Goal systolic blood pressure less than 140 continue to keep Na 145-150 Keppra 500 IV every 12 hours each prophylaxis 7 days ICP currently well controlled -- EEG 08/30: generalized slowing, no seizure activity. CV: Hypertensive emergency Currently off Cardene drip continue amlodipine 10mg po daily continue labetalol 400mg po q8h continue hydralazine 50mg po q8hr. goal SBP < 140. Resp: Acute hypoxic and hypercarbic respiratory failure PRVC Ventilator bundle As needed bronchodilator therapy Spontaneous breathing trials when clinically indicated, and cleared by neurosurgery, does not meet criteria today. wean fio2 for goal spo2 > 90%. HOB at 30 degrees. CXR today GI: Acute Protein Calorie Malnutrition-mild Constipation Tube feeds with Jevity, having BM Protonix for GI prophylaxis Colace/as needed Senokot for bowel regimen. goal daily bowel movements. : Izaguirre for accurate I/Os in this critically ill patient Endo: Hyperglycemia of Critical Illness Sliding-scale insulin with Accu-Cheks every 4 hours to maintain euglycemia. Low regimen Renal: Intravascular hypervolemia Monitor renal function closely Started on lasix 40mg iv BID 08/31, will reduce to 20 BID Heme: daily CBC. ID: Monitor for infection FEN: Hypokalemia Replace per ICU electrolyte protocol. MSK: PT evaluate and treat Access - Right IJ CVL 08/26, change soon. - arterial line - izaguirre Prophylaxis - GI - Protonix - DVT - SCDs/pharmacological prophylaxis contraindicated with intracranial hemorrhage Overall impression: Severe brain bleed with poor recovery of neurological function. Jonny Samuels MD Sep 02, 2016 17:53
[2016-09-02] MEDS: NITROGLYCERIN 2% OINT 1 GM PACKET TOPICAL PRN (18:13)
[2016-09-02] MEDS: ACETAMINOPHEN 325 MG TAB PO PRN (21:19)
[2016-09-03] VITALS (16 sets, daily range): BP systolic 134–179; BP diastolic 56–74; PULSE 87–98; RESP 14–17; TEMP 98.8–100.3; O2SAT 93–96
[2016-09-03] MEDS: INSULIN NovoLIN REGULAR SUPPLEMENTAL SCALE SQ SCH ×5 (04:00→20:00)
[2016-09-03] MEDS: FREE WATER G-TUBE SCH ×5 (04:00→20:00)
[2016-09-03] MEDS: CHLORHEXIDINE GLUCONATE 2 % 1 PACK (2 CLOTHS) TOP SCH (04:00)
[2016-09-03] MEDS: LABETALOL HCL 200 MG TAB PO SCH ×3 (05:12→21:13)
[2016-09-03] MEDS: hydrALAZINE HCL 50 MG TAB PO SCH (05:12)
[2016-09-03 06:15] LABS: HEMATOCRIT 27.1 % (39.0-51.0); MEAN CELL VOLUME 95.7 FL (80.0-100.0); MEAN CORPUSCULAR HGB CONC 34.5 % (32.0-36.0); PLATELET COUNT 202 TH/MM3 (150-450); RED BLOOD COUNT 2.83 MIL/MM3 (4.50-5.90); RED CELL DISTRIBUTION WIDTH 12.8 % (11.6-17.2); REVIEW FLAG FINAL; WHITE BLOOD COUNT 8.3 TH/MM3 (4.0-11.0)
[2016-09-03 06:44] LABS: POTASSIUM 3.2 MEQ/L (3.5-5.1)
--- NOTE | 2016-09-03 07:27 | HHI.CCPN ---
Subjective Remarks/Hospital Course This is a middle-aged male. Date of admission 08/26/2016. Past medical history is unknown. His real name is Rafy Ruiz. Haritha Ruiz [phone] is the health proxy. Per ED report, patient was acute onset 1 hour prior to admission of right upper and lower extremity weakness and dysarthria. Upon presentation to the ED, patient was quite hypertensive and had decreased responsiveness. Patient was intubated by ED physician. [address] head revealed a left intraparenchymal hemorrhage/basal ganglia with extension to the lateral ventricle with a 5 mm shift to the right. Neurosurgery was consulted/Dr. Croft who placed Right frontal ventriculostomy. Laboratories reveal potassium 2.8. Currently on Cardene drip at 15 mg an hour. SUBJ: Remains intubated, on fentanyl. Propofol on hold. On Cardene infusion at 1mg per hour. Ventric with 87 ml blood-tinged CSF since placement. ICP well controlled,. Patient's [id number] is at the bedside, is in [place] 08/28: continues to have poor neurologic exam. on Cardene at 5mg/hr this AM. EVD with blood-tinged CSF, patent. ICP controlled. not yet on sedation hold this AM to my exam. 08/29: no change in neuro exam. cardene persists for blood pressure control. 08/30: encephalopathy persists. still on cardene at 5mg/hr for blood pressure. 08/31: hypernatremia persists. poor neuro exam still. unable to tolerate sedation holiday due to hypertension. labetalol increased yesterday with only mild improvements. did not diurese well with lasix 20 yesterday. 09/01: Remains off sedation since yesterday. Appears to localize with left upper extremity. Blood pressure control improved. Urine output excellent 3.9 L in 24 hours, EVD with 192 mL output in 24 hours 09/02: No improvement in neurological function. 09/03: No change in neuro status. Still waiting for photo ID. Objective Vital Signs Date Time Temp Pulse Resp B/P Pulse Ox O2 Delivery O2 Flow Rate FiO2 09/03/16 05:00 45 09/03/16 04:14 95 09/03/16 04:00 99.9 98 14 148/74 Intake and Output 09/02/16 09/02/1609/03/17 08:00 16:00 00:00 Intake Total 922 ml 1316 ml 1084 ml Output Total 880 ml 1895 ml 1230 ml Balance 42 ml -579 ml -146 ml Result Diagram: 09/03/16 0600 09/03/16 0600 Imaging Last Impressions Head CT 08/26/16 0000 Signed Impressions: Service Date/Time: Friday, August 26, 2016 15:41 - CONCLUSION: 1. Large intraparenchymal hemorrhage in the left basal ganglia with extension into left lateral ventricle. 2. Surrounding edema and mild midline shift to the right. Frederick Zaldivar MD Chest X-Ray 08/26/16 0000 Signed Impressions: Service Date/Time: Friday, August 26, 2016 14:37 - CONCLUSION: 1. Status post intubation with the endotracheal tube tip approximately 5 cm above the chela. 2. Midinspiratory study with crowding of the lung vasculature. Frederick Zaldivar MD Objective Remarks GENERAL: Middle-aged male, orotracheally intubated SKIN: Warm, dry. HEAD: Atraumatic. Normocephalic. R frontal ventriculostomy with red CSF, patent. EYES:. No scleral icterus. No injection or drainage. ENT: No nasal bleeding or discharge. orotracheally intubated. NECK: Trachea midline. No JVD. CARDIOVASCULAR: Regular rate and rhythm. No m,r. No JVD. RESPIRATORY: Clear to auscultation. Breath sounds equal bilaterally. mechanically ventilated. GASTROINTESTINAL: Abdomen soft, non-tender, nondistended. no guarding. BS active. MUSCULOSKELETAL: Extremities without difficulty peripheral edema. No obvious deformities. NEUROLOGICAL: Positive corneal reflex. flaccid right upper extremity, appears to localize with left upper extremity and slightly withdraws lower extremities to pain A/P Assessment and Plan Assessment: middle-aged male with large left basal ganglia ICH. His ICH score is 2, giving him an estimated 37% 30-day mortality. MRI, however, is positive for a number of other small hemorrhages which neurosurgery think may be related to possible amyloid angiopathy, and likely his prognosis is much poorer than initially estimated. His course is complicated by acute hypoxic and hypercarbic respiratory failure. Neuro/Psych: Left basal ganglia intraparenchymal hemorrhage s/p Right frontal ventriculostomy placement 08/[address] head revealed left basal ganglia intraparenchymal hemorrhage 3.42 cm with extension to lateral ventricle, midline shift 5 mm to the right. Neurosurgery/Dr. Croft. Right frontal twist drill hole ventriculostomy. Neuro checks q1h Goal systolic blood pressure less than 140 continue to keep Na 145-150 Keppra 500 IV every 12 hours each prophylaxis 7 days ICP currently well controlled -- EEG 08/30: generalized slowing, no seizure activity. CV: Hypertensive emergency Currently off Cardene drip continue amlodipine 10mg po daily continue labetalol 400mg po q8h continue hydralazine 50mg po q8hr. goal SBP < 140. Resp: Acute hypoxic and hypercarbic respiratory failure PRVC Ventilator bundle As needed bronchodilator therapy Spontaneous breathing trials when clinically indicated, and cleared by neurosurgery, does not meet criteria today. wean fio2 for goal spo2 > 90%. HOB at 30 degrees. GI: Acute Protein Calorie Malnutrition-mild Constipation Tube feeds with Jevity, having BM Protonix for GI prophylaxis Colace/as needed Senokot for bowel regimen. goal daily bowel movements. : Izaguirre for accurate I/Os in this critically ill patient Endo: Hyperglycemia of Critical Illness Sliding-scale insulin with Accu-Cheks every 4 hours to maintain euglycemia. Low regimen Renal: Intravascular hypervolemia Monitor renal function closely Started on lasix 20 BID Heme: daily CBC. ID: Monitor for infection FEN: Hypokalemia Replace per ICU electrolyte protocol. MSK: PT evaluate and treat Access - Right IJ CVL 08/26, change soon. - arterial line - izaguirre Prophylaxis - GI - Protonix - DVT - SCDs/pharmacological prophylaxis contraindicated with intracranial hemorrhage Overall impression: Severe brain bleed with poor recovery of neurological function. Will need to change out CVL. Will require tracheostomy insertion for long-term vent weaning. Will place tomorrow. Jonny Samuels MD Sep 03, 2016 07:27
[2016-09-03] MEDS: LACTULOSE SYRUP 20 GM/30 ML CUP PO SCH ×2 (09:00→20:28)
[2016-09-03] MEDS: DOCUSATE SODIUM 100 MG CAP PO SCH ×2 (09:00→20:28)
[2016-09-03] MEDS: POLYETHYLENE GLYCOL 17 GM PKG PO SCH ×2 (09:00→20:28)
[2016-09-03] MEDS: BISACODYL 10 MG SUPP RECTAL SCH (09:00)
[2016-09-03] MEDS: JUVEN POWDER 1 PACK G-TUBE SCH ×2 (09:00→20:32)
--- NOTE | 2016-09-03 09:01 | HHI.NSPN ---
(Sergey Melton) History Chief Complaint: Left basal ganglia hemorrhage (Sergey Melton) Interval History This is a middle-aged gentleman who apparently was brought to [facility] Emergency Room with acute onset of right-sided weakness and slurred speech. He was hypertensive on presentation and had a declining neurologic examination requiring intubation for airway control with ventilator support. CT scan of the head obtained reveals a basal ganglia hemorrhage on the left side measuring about 3.4 cm in diameter. There is also extension of the hemorrhage into the left lateral ventricle. No hydrocephalus is noted, although left temporal horn is dilated. Currently there is no friends or family members here to relate a history and his identity is unknown. 08/27/16: Pt sedated on Diprivan. Not opening eyes. Not following commands. Pupils 2mm bilaterally slight reaction bilaterally. 08/28/16: Pt sedated on Diprivan. Not opening eyes. Pupils 2mm bilaterally slight brisk reaction. Not following commands. 08/29/16: Pt sedated with Diprivan and Fentanyl drips. Not opening eyes. Pupils 2mm bilaterally slight brisk reaction. Not following commands. 09/01/16: Pt off sedation. Not opening eyes. Pupils 3mm bilaterally reactive. Not following commands. Ventriculostomy in place. ICP 18 after stimulation. 09/02/16: Pt off sedation. Not opening eyes to pain. Pupils 3mm bilaterally reactive bilaterally. Not following commands. ICP 11 with ventriculostomy drain at [id number]. 09/03/16: Pt off sedative drips. Not opening eyes. Ventriculostomy drain clamped, reportedly had to be opened multiple times last night. Currently tolerating clamping since 730am. (Sergey Melton) System Review Comments Not able to obtain given clinical condition. (Sergey Melton) Exam Results Vital Signs Date Time Temp Pulse Resp B/P Pulse Ox O2 Delivery O2 Flow Rate FiO2 09/03/16 07:52 96 40 09/03/16 07:00 87 09/03/16 04:00 99.9 14 148/74 Intake and Output 09/02/16 09/02/16 09/03/16 08:00 16:00 00:00 Intake Total 922 ml 1316 ml 1084 ml Output Total 880 ml 1895 ml 1230 ml Balance 42 ml -579 ml -146 ml (Sergey Melton) Physical Examination Heart: NSR. No murmurs. Resp: CTA bilaterally. Intubated. FiO2 40%. PEEP 5 Pressure controlled rate 16. Abd: Soft positive bs. Skin: No cyanosis or erythema. SCDs in place. Muscle: Not following for muscle testing. Withdraws all 4 extremities to pain , right hemiparesis. Neuro: Pt off sedative drips. Pt not opening eyes. Pupils 4mm bilaterally, reactive bilaterally. Not following commands. Ventriculostomy in place clamping trials last night had to be opened multiple times. Currently he is tolerating clamping since 730am. (Sergey Melton) Lab, Micro, Other Results Laboratory Tests Test 09/03/16 06:00 White Blood Count 8.3 TH/MM3 Red Blood Count 2.83 MIL/MM3 Hemoglobin 9.3 GM/DL Hematocrit 27.1 % Mean Corpuscular Volume 95.7 FL Mean Corpuscular Hemoglobin 33.0 PG Mean Corpuscular Hemoglobin 34.5 % Concent Red Cell Distribution Width 12.8 % Platelet Count 202 TH/MM3 Mean Platelet Volume 10.1 FL Sodium Level 148 MEQ/L Potassium Level 3.2 MEQ/L Chloride Level 112 MEQ/L Carbon Dioxide Level 28.0 MEQ/L Anion Gap 8 MEQ/L Blood Urea Nitrogen 35 MG/DL Creatinine 1.03 MG/DL Estimat Glomerular Filtration 62 ML/MIN Rate Random Glucose 134 MG/DL Calcium Level 8.6 MG/DL 09/02/16 09/02/16 09/03/16 15:00 23:00 07:00 Intake Total 1316 ml 1084 ml 852 ml Output Total 1895 ml 1230 ml 1045 ml Balance -579 ml -146 ml -193 ml Intake IV Total 321 ml 497 ml 169 ml Tube Feeding 395 ml 427 ml 423 ml Other 600 ml 160 ml 260 ml Output Urine Total 1850 ml 1200 ml 1000 ml Drainage Total 45 ml 30 ml 45 ml # Bowel Movements 1 1 1 (Sergey Melton) Medical Decision Making Impression and Plan A: M with Left basal ganglia hemorrhage with intraventricular extension with mild hydrocephalus. This is a characteristic of a hypertensive bleed. 2. Unregulated hypertension. 3. Respiratory failure secondary to the intracranial hemorrhage. PLAN Continue with ventriculostomy drain being challenged currently clamped. Continue with blood pressure control Continue with critical care- intubation. (Sergey Melton) Attending Statement The exam, history, and the medical decision-making described in the above note were completed with the assistance of the mid-level provider. I reviewed and agree with the findings presented. I attest that I had a [id number] encounter with the patient on the same day, and personally performed and documented my assessment and findings in the medical record. (Jeff Croft MD) Sergey Melton Sep 03, 2016 09:01 Jeff Croft MD Sep 03, 2016 18:56
[2016-09-03] MEDS: FUROSEMIDE 40 MG/4 ML VIAL IV PUSH SCH ×2 (09:36→17:17)
[2016-09-03] MEDS: SODIUM CHLORIDE 0.9% FLUSH 5 ML FLUSH IVF SCH (09:36)
[2016-09-03] MEDS: hydrALAZINE HCL 20 MG/ML VIAL IV PUSH PRN (09:36)
[2016-09-03] MEDS: SODIUM CHLORIDE 0.9% FLUSH 5 ML FLUSH IV FLUSH SCH ×2 (09:36→20:29)
[2016-09-03] MEDS: PANTOPRAZOLE SODIUM 40 MG VIAL IV SCH (09:36)
[2016-09-03] MEDS: ARTIFICIAL TEARS OPTH SOLN 15 ML BTL EACH EYE SCH ×3 (09:37→18:00)
[2016-09-03] MEDS: CHLORHEXIDINE 0.12% (ORAL KIT) 15 ML CUP MT SCH ×2 (09:37→20:28)
[2016-09-03] MEDS: ACETAMINOPHEN 325 MG TAB PO PRN (12:33)
[2016-09-03] MEDS: hydrALAZINE HCL 100 MG TAB PO SCH ×2 (12:34→21:13)
[2016-09-03] MEDS: LISINOPRIL 20 MG TAB PO SCH (12:34)
[2016-09-03] MEDS: POTASSIUM CHLOR 20 MEQ PREMIX 100 ML IV PRN (12:35)
[2016-09-03] MEDS ORDERED: VECURONIUM BROMIDE 10 MG VIAL IV PUSH ONE (14:00)
[2016-09-03] MEDS ORDERED: MIDAZOLAM HCL 5 MG/ML VIAL (1 ML) IV ONE (14:00)
[2016-09-03] MEDS ORDERED: VECURONIUM BROMIDE 10 MG VIAL IV PUSH PRN (14:15)
[2016-09-03] MEDS ORDERED: MIDAZOLAM HCL 5 MG/ML VIAL (1 ML) IV PRN (14:15)
[2016-09-03] MEDS: LABETALOL HCL 100 MG/20 ML VIAL IV PRN (17:17)
[2016-09-04] VITALS (17 sets, daily range): BP systolic 133–174; BP diastolic 54–106; PULSE 76–96; RESP 16–20; TEMP 99.4–99.9; O2SAT 88–99
[2016-09-04] MEDS: ACETAMINOPHEN 325 MG TAB PO PRN ×2 (03:26→21:43)
[2016-09-04] MEDS: FREE WATER G-TUBE SCH ×6 (03:28→20:00)
[2016-09-04] MEDS: INSULIN NovoLIN REGULAR SUPPLEMENTAL SCALE SQ SCH ×6 (03:31→20:00)
[2016-09-04] MEDS: CHLORHEXIDINE GLUCONATE 2 % 1 PACK (2 CLOTHS) TOP SCH (04:00)
[2016-09-04 04:20] LABS: HEMATOCRIT 28.5 % (39.0-51.0); MEAN CORPUSCULAR HEMOGLOBIN 33.2 PG (27.0-34.0); PLATELET COUNT 219 TH/MM3 (150-450); RED BLOOD COUNT 2.99 MIL/MM3 (4.50-5.90); RED CELL DISTRIBUTION WIDTH 12.4 % (11.6-17.2); REVIEW FLAG FINAL; WHITE BLOOD COUNT 9.8 TH/MM3 (4.0-11.0)
[2016-09-04 04:38] LABS: BICARBONATE 26.5 MEQ/L (21.0-32.0)
[2016-09-04] MEDS: LABETALOL HCL 200 MG TAB PO SCH ×3 (06:12→21:44)
[2016-09-04] MEDS: hydrALAZINE HCL 100 MG TAB PO SCH ×3 (06:12→21:44)
[2016-09-04] MEDS: POTASSIUM CHLOR 20 MEQ PREMIX 100 ML IV PRN (06:13)
--- NOTE | 2016-09-04 07:41 | HHI.CCPN ---
Subjective Remarks/Hospital Course This is a middle-aged male. Date of admission 08/26/2016. Past medical history is unknown. His real name is Rafy Ruiz. Haritha Ruiz [phone] is the health proxy. Per ED report, patient was acute onset 1 hour prior to admission of right upper and lower extremity weakness and dysarthria. Upon presentation to the ED, patient was quite hypertensive and had decreased responsiveness. Patient was intubated by ED physician. [address] head revealed a left intraparenchymal hemorrhage/basal ganglia with extension to the lateral ventricle with a 5 mm shift to the right. Neurosurgery was consulted/Dr. Croft who placed Right frontal ventriculostomy. Laboratories reveal potassium 2.8. Currently on Cardene drip at 15 mg an hour. SUBJ: Remains intubated, on fentanyl. Propofol on hold. On Cardene infusion at 1mg per hour. Ventric with 87 ml blood-tinged CSF since placement. ICP well controlled,. Patient's [id number] is at the bedside, is in [place] 08/28: continues to have poor neurologic exam. on Cardene at 5mg/hr this AM. EVD with blood-tinged CSF, patent. ICP controlled. not yet on sedation hold this AM to my exam. 08/29: no change in neuro exam. cardene persists for blood pressure control. 08/30: encephalopathy persists. still on cardene at 5mg/hr for blood pressure. 08/31: hypernatremia persists. poor neuro exam still. unable to tolerate sedation holiday due to hypertension. labetalol increased yesterday with only mild improvements. did not diurese well with lasix 20 yesterday. 09/01: Remains off sedation since yesterday. Appears to localize with left upper extremity. Blood pressure control improved. Urine output excellent 3.9 L in 24 hours, EVD with 192 mL output in 24 hours 09/02: No improvement in neurological function. 09/03: No change in neuro status. Still waiting for photo ID. 09/04: No change. Plan trach today to facilitate long-tern vent weaning. Objective Vital Signs Date Time Temp Pulse Resp B/P Pulse Ox O2 Delivery O2 Flow Rate FiO2 09/04/16 06:00 80 09/04/16 04:05 94 40 09/04/16 04:00 99.7 16 133/54 Intake and Output 09/03/16 09/03/16 09/04/16 08:00 16:00 00:00 Intake Total 852 ml 922 ml 1045 ml Output Total 1045 ml 2457 ml 1240 ml Balance -193 ml -1535 ml -195 ml Result Diagram: 09/04/16 0400 09/04/16 0400 Imaging Last Impressions Head CT 08/26/16 0000 Signed Impressions: Service Date/Time: Friday, August 26, 2016 15:41 - CONCLUSION: 1. Large intraparenchymal hemorrhage in the left basal ganglia with extension into left lateral ventricle. 2. Surrounding edema and mild midline shift to the right. Frederick Zaldivar MD Chest X-Ray 08/26/16 0000 Signed Impressions: Service Date/Time: Friday, August 26, 2016 14:37 - CONCLUSION: 1. Status post intubation with the endotracheal tube tip approximately 5 cm above the chela. 2. Midinspiratory study with crowding of the lung vasculature. Frederick Zaldivar MD Objective Remarks GENERAL: Middle-aged male, orotracheally intubated SKIN: Warm, dry. HEAD: Atraumatic. Normocephalic. R frontal ventriculostomy with red CSF, patent. EYES:. No scleral icterus. No injection or drainage. ENT: No nasal bleeding or discharge. orotracheally intubated. NECK: Trachea midline. No JVD. Orally intubated CARDIOVASCULAR: Regular rate and rhythm. No m,r. No JVD. RESPIRATORY: Clear to auscultation. Breath sounds equal bilaterally. mechanically ventilated. GASTROINTESTINAL: Abdomen soft, non-tender, nondistended. no guarding. BS active. MUSCULOSKELETAL: Extremities without difficulty peripheral edema. No obvious deformities. Warm, well perfused. NEUROLOGICAL: Positive corneal reflex. flaccid right upper extremity, appears to localize with left upper extremity and slightly withdraws lower extremities to pain A/P Assessment and Plan Assessment: middle-aged male with large left basal ganglia ICH. His ICH score is 2, giving him an estimated 37% 30-day mortality. MRI, however, is positive for a number of other small hemorrhages which neurosurgery think may be related to possible amyloid angiopathy, and likely his prognosis is much poorer than initially estimated. His course is complicated by acute hypoxic and hypercarbic respiratory failure. Neuro/Psych: Left basal ganglia intraparenchymal hemorrhage s/p Right frontal ventriculostomy placement 08/[address] head revealed left basal ganglia intraparenchymal hemorrhage 3.42 cm with extension to lateral ventricle, midline shift 5 mm to the right. Neurosurgery/Dr. Croft. Right frontal twist drill hole ventriculostomy. Neuro checks q1h Goal systolic blood pressure less than 140 continue to keep Na 145-150 Keppra 500 IV every 12 hours each prophylaxis 7 days ICP currently well controlled -- EEG 08/30: generalized slowing, no seizure activity. CV: Hypertensive emergency Currently off Cardene drip continue amlodipine 10mg po daily continue labetalol 400mg po q8h continue hydralazine 50mg po q8hr. goal SBP < 140. Resp: Acute hypoxic and hypercarbic respiratory failure PRVC Ventilator bundle As needed bronchodilator therapy Spontaneous breathing trials when clinically indicated, and cleared by neurosurgery, does not meet criteria today. wean fio2 for goal spo2 > 90%. HOB at 30 degrees. GI: Acute Protein Calorie Malnutrition-mild Constipation Tube feeds with Jevity, having BM Protonix for GI prophylaxis Colace/as needed Senokot for bowel regimen. goal daily bowel movements. : Izaguirre for accurate I/Os in this critically ill patient Endo: Hyperglycemia of Critical Illness Sliding-scale insulin with Accu-Cheks every 4 hours to maintain euglycemia. Low regimen Renal: Intravascular hypervolemia Monitor renal function closely Started on lasix 20 BID Heme: daily CBC. ID: Monitor for infection FEN: Hypokalemia Replace per ICU electrolyte protocol. MSK: PT evaluate and treat Access - Right IJ CVL 08/26, change. - arterial line - izaguirre Prophylaxis - GI - Protonix - DVT - SCDs/pharmacological prophylaxis contraindicated with intracranial hemorrhage Overall impression: Severe brain bleed with poor recovery of neurological function. Will require tracheostomy insertion for long-term vent weaning. Will place tomorrow. Jonny Samuels MD Sep 04, 2016 07:41
[2016-09-04] MEDS: SODIUM CHLORIDE 0.9% FLUSH 5 ML FLUSH IV FLUSH SCH ×2 (09:00→21:00)
[2016-09-04] MEDS: SODIUM CHLORIDE 0.9% FLUSH 5 ML FLUSH IVF SCH (09:00)
[2016-09-04] MEDS: LACTULOSE SYRUP 20 GM/30 ML CUP PO SCH ×2 (09:00→21:00)
[2016-09-04] MEDS: DOCUSATE SODIUM 100 MG CAP PO SCH ×2 (09:00→21:00)
[2016-09-04] MEDS: BISACODYL 10 MG SUPP RECTAL SCH (09:00)
[2016-09-04] MEDS: JUVEN POWDER 1 PACK G-TUBE SCH ×2 (09:00→21:00)
[2016-09-04] MEDS: POLYETHYLENE GLYCOL 17 GM PKG PO SCH ×2 (09:00→21:00)
--- NOTE | 2016-09-04 09:10 | HHI.NSPN ---
(Sergey Melton) History Chief Complaint: Left basal ganglia hemorrhage (Sergey Melton) Interval History This is a middle-aged gentleman who apparently was brought to [facility] Emergency Room with acute onset of right-sided weakness and slurred speech. He was hypertensive on presentation and had a declining neurologic examination requiring intubation for airway control with ventilator support. CT scan of the head obtained reveals a basal ganglia hemorrhage on the left side measuring about 3.4 cm in diameter. There is also extension of the hemorrhage into the left lateral ventricle. No hydrocephalus is noted, although left temporal horn is dilated. Currently there is no friends or family members here to relate a history and his identity is unknown. 08/27/16: Pt sedated on Diprivan. Not opening eyes. Not following commands. Pupils 2mm bilaterally slight reaction bilaterally. 08/28/16: Pt sedated on Diprivan. Not opening eyes. Pupils 2mm bilaterally slight brisk reaction. Not following commands. 08/29/16: Pt sedated with Diprivan and Fentanyl drips. Not opening eyes. Pupils 2mm bilaterally slight brisk reaction. Not following commands. 09/01/16: Pt off sedation. Not opening eyes. Pupils 3mm bilaterally reactive. Not following commands. Ventriculostomy in place. ICP 18 after stimulation. 09/02/16: Pt off sedation. Not opening eyes to pain. Pupils 3mm bilaterally reactive bilaterally. Not following commands. ICP 11 with ventriculostomy drain at [id number]. 09/03/16: Pt off sedative drips. Not opening eyes. Ventriculostomy drain clamped, reportedly had to be opened multiple times last night. Currently tolerating clamping since 730am. 09/04/16: Pt not opening eyes. Pupils 4mm bilaterally reactive bilaterally. Not following commands. Withdraws UEs to pain. Localizes with LUE to pain in upper chest. (Sergey Melton) Review of Systems General: Negative for: fever, chills, insomnia Respiratory: Negative for: shortness of breath, cough, sputum Cardiovascular: Negative for: chest pain Gastrointestinal: Negative for: nausea, vomitting, diarrhea, constipation ( Sergey Melton) Exam Results Vital Signs Date Time Temp Pulse Resp B/P Pulse Ox O2 Delivery O2 Flow Rate FiO2 09/04/16 08:36 88 35 09/04/16 06:00 80 09/04/16 04:00 99.7 16 133/54 Intake and Output 09/03/16 09/03/16 09/04/16 08:00 16:00 00:00 Intake Total 852 ml 922 ml 1045 ml Output Total 1045 ml 2457 ml 1240 ml Balance -193 ml -1535 ml -195 ml (Sergey Melotn) Physical Examination Heart: NSR. No murmurs. Resp: CTA bilaterally. Intubated. FiO2 40%. PEEP 5 Pressure controlled rate 16. Abd: Soft positive bs. Skin: No cyanosis or erythema. SCDs in place. Muscle: Not following for muscle testing. Withdraws all 4 extremities to pain , right hemiparesis. Localizes with LUE to pain in upper chest. Neuro: Pt off sedative drips. Pt not opening eyes. Pupils 4mm bilaterally, reactive bilaterally. Not following commands. Ventriculostomy in place at 27 cmH2O, ICP 18. (Sergey Melton) Lab, Micro, Other Results Laboratory Tests Test 09/04/16 04:00 White Blood Count 9.8 TH/MM3 Red Blood Count 2.99 MIL/MM3 Hemoglobin 10.0 GM/DL Hematocrit 28.5 % Mean Corpuscular Volume 95.0 FL Mean Corpuscular Hemoglobin 33.2 PG Mean Corpuscular Hemoglobin 35.0 % Concent Red Cell Distribution Width 12.4 % Platelet Count 219 TH/MM3 Mean Platelet Volume 10.3 FL Sodium Level 149 MEQ/L Potassium Level 3.0 MEQ/L Chloride Level 114 MEQ/L Carbon Dioxide Level 26.5 MEQ/L Anion Gap 9 MEQ/L Blood Urea Nitrogen 31 MG/DL Creatinine 0.92 MG/DL Estimat Glomerular Filtration 71 ML/MIN Rate Random Glucose 130 MG/DL Calcium Level 8.9 MG/DL 09/03/16 09/03/16 09/04/16 15:00 23:00 07:00 Intake Total 922 ml 1045 ml 515 ml Output Total 2457 ml 1240 ml 1035 ml Balance -1535 ml -195 ml -520 ml Intake IV Total 183 ml 210 ml 315 ml Tube Feeding 319 ml 435 ml Other 420 ml 400 ml 200 ml Output Urine Total 2425 ml 1200 ml 1000 ml Drainage Total 32 ml 40 ml 35 ml # Bowel Movements 1 1 0 (Sergey Melton) Medical Decision Making Impression and Plan A: M with Left basal ganglia hemorrhage with intraventricular extension with mild hydrocephalus. This is a characteristic of a hypertensive bleed. 2. Unregulated hypertension. 3. Respiratory failure secondary to the intracranial hemorrhage. PLAN Continue with ventriculostomy drain being challenged currently clamped. Continue with blood pressure control Continue with critical care- intubation. (Sergey Melton) Attending Statement The exam, history, and the medical decision-making described in the above note were completed with the assistance of the mid-level provider. I reviewed and agree with the findings presented. I attest that I had a [id number] encounter with the patient on the same day, and personally performed and documented my assessment and findings in the medical record. (Jeff Croft MD) Sergey Melton Sep 04, 2016 09:10 Jeff Croft MD Sep 04, 2016 18:00
[2016-09-04] MEDS: PANTOPRAZOLE SODIUM 40 MG VIAL IV SCH (09:24)
[2016-09-04] MEDS: FUROSEMIDE 40 MG/4 ML VIAL IV PUSH SCH ×2 (09:24→18:39)
[2016-09-04] MEDS: LISINOPRIL 20 MG TAB PO SCH (09:24)
[2016-09-04] MEDS: CHLORHEXIDINE 0.12% (ORAL KIT) 15 ML CUP MT SCH ×2 (09:29→21:43)
[2016-09-04] MEDS: ARTIFICIAL TEARS OPTH SOLN 15 ML BTL EACH EYE SCH ×3 (09:40→18:00)
[2016-09-04] MEDS ORDERED: PROPOFOL 1000 MG/100 ML INJ 100 ML IV SCH (11:00)
--- NOTE | 2016-09-04 11:29 | RADRPT ---
EXAM DATE/TIME: 09/04/2016 10:50 [facility] COMPARISON: CHEST SINGLE AP, September 01, 2016, 8:00. INDICATIONS : Tracheostomy placement. MEDICAL HISTORY : None. SURGICAL HISTORY : None. ENCOUNTER: Initial ACUITY: 1 week PAIN SCORE: 0/10 LOCATION: Bilateral chest FINDINGS: A single portable frontal view the chest shows interval placement of a tracheostomy tube in good posi tion. Nasogastric tube courses off the inferior margin of the film. Bibasilar areas of increased dens ity are seen either related to consolidation or perhaps posterior layering pleural effusions. Appeara nce is similar to the prior study. Heart is normal in size. No pneumothorax. CONCLUSION: Tracheostomy tube in good position. Persistent basilar densities either relating to infiltrates or pe rhaps posterior layering pleural effusions. Isael Gates Jr., MD on September 04, 2016 at 11:25 Board Certified Radiologist. This report was verified electronically.
--- NOTE | 2016-09-04 13:29 | PD.PROCEDR ---
Procedure Note Procedure Procedure: Fiberoptic Bronchoscopy Diagnosis/Indication: Respiratory failure, ICH Consent: Informed consent obtained and a time out performed Anesthesia: Continued sedation with propofol. Total 100 g of fentanyl given for pain control, 5 mg IV Versed. Neuromuscular paralysis with rocuronium Description of the Procedure: The patient was sedated and mechanically ventilated, was placed on 100% FIO2 and a volume control mode of ventilation. The fiberoptic bronchoscopy was inserted via endotracheal tube and the trachea, right and left mainstem bronchi, and sub-segmental bronchi were evaluated. The endobronchial anatomy was normal. ETT was withdrawn slowly to 17.5 CM. Insertion of introducer needle, guidewire, followed by serial Blue Rhino dilation and tracheostomy placement was directly visualized on video bronchoscopy. (see separate tracheostomy procedure note by Dr. Gill). After tracheostomy placement, position was confirmed by introducing the bronchoscope through the new trach and visualizing the main chela. After suturing in the tracheostomy tube, I reinserted bronchoscope through the tracheostomy again and suctioned out excess blood and secretion, especially thick yellow secretions in the right lower lobe. The patient tolerated the procedure well with no hemodynamic instability or hypoxia. There were no immediate complications noted. EBL for bronchoscopy have was negligible. A chest x-ray has been ordered. I personally performed the procedure. Manoj Cameron MD Sep 04, 2016 13:29
--- NOTE | 2016-09-04 20:40 | PD.PROCEDR ---
Procedure Note Procedure Percutaneous Dilation Tracheostomy Tube Placement Diagnosis: Respiratory Failure Indications: Failure to Wean Anesthesia: see MAR Neuromuscular Blockade: Rocuronium Anesthesia was provided by the bedside RN Description of the Procedure: The patient was sedated and paralyzed. The patient was positioned in the supine position with a chest roll. The patient's neck was slightly extended. Landmarks were palpated and the anatomy of the anterior neck was deemed normal. A time out procedure was performed. The patient was placed on a volume control mode of ventilation, on 100% FiO2. The patient was prepped and draped sterilely. A bronchoscope was inserted into the endotracheal tube for endoscopic guidance ( see separate bronchoscopy procedure note). After negative aspiration, 1% lidocaine with 1:100k epinephrine was injected subcutaneously in the midline neck using a 21g needle for local anesthesia. An approximately 2cm skin incision was made using a #15 blade. The cricoid cartilage, thyroid tissue, and tracheal rings were palpated in the midline. Under direct bronchoscopic guidance , the cuff of the endotracheal tube was deflated and the endotracheal tube was retracted to a level above the level of the skin incision. At this point, a 15g introducer needle/catheter was advanced midline under negative aspiration with saline filled syringe until bubbles were seen and the needle and catheter were visualized in the lumen of the trachea. The needle was withdrawn leaving the catheter in place. A 0.052 in diameter J-shaped guidewire was advanced through the catheter into the lumen of the trachea, under direct bronchoscopic visualization. Using a modified Seldinger technique, a 14 Fr, 4.5 cm introducer dilator was used, followed by a Blue Rhino Percutaneous Tracheostomy Dilator, and finally a 28 Fr tracheostomy loading catheter with 8.0 Cuffed Shiley tracheostomy tube. The loading catheter and guidewire were removed and the tracheostomy tube was confirmed in the lumen of the trachea with bronchoscopy, end-tidal CO2, and returning volumes on the ventilator. The tracheostomy was sewn to the skin with interrupted 2.0 Prolene sutures, and a tracheostomy tie was applied to the skin. There were no immediate complications. There was minimal EBL. A chest x-ray has been ordered. Milk Powder Grinder: Lalo Jackman I personally performed the procedure. Chari Gill MD Sep 04, 2016 20:40
[2016-09-05] VITALS (15 sets, daily range): BP systolic 139–186; BP diastolic 75–87; PULSE 86–97; RESP 14–30; TEMP 99.1–100.3; O2SAT 96–98
[2016-09-05] MEDS: INSULIN NovoLIN REGULAR SUPPLEMENTAL SCALE SQ SCH ×6 (04:00→20:00)
[2016-09-05] MEDS: FREE WATER G-TUBE SCH ×6 (04:00→20:00)
[2016-09-05] MEDS: CHLORHEXIDINE GLUCONATE 2 % 1 PACK (2 CLOTHS) TOP SCH (04:00)
[2016-09-05 05:15] LABS: BICARBONATE 23.5 MEQ/L (21.0-32.0)
[2016-09-05 05:23] LABS: POTASSIUM 2.6 MEQ/L (3.5-5.1)
[2016-09-05] MEDS: LABETALOL HCL 200 MG TAB PO SCH ×3 (05:39→21:34)
[2016-09-05] MEDS: LABETALOL HCL 100 MG/20 ML VIAL IV PRN (05:39)
[2016-09-05] MEDS: hydrALAZINE HCL 100 MG TAB PO SCH ×3 (05:39→21:34)
[2016-09-05] MEDS: POTASSIUM CHLOR 20 MEQ PREMIX 100 ML IV PRN (06:32)
[2016-09-05] MEDS: SODIUM CHLORIDE 0.9% FLUSH 5 ML FLUSH IV FLUSH SCH ×2 (08:22→21:00)
[2016-09-05] MEDS: PANTOPRAZOLE SODIUM 40 MG VIAL IV SCH (08:22)
[2016-09-05] MEDS: FUROSEMIDE 40 MG/4 ML VIAL IV PUSH SCH ×2 (08:22→16:02)
[2016-09-05] MEDS: ARTIFICIAL TEARS OPTH SOLN 15 ML BTL EACH EYE SCH ×3 (08:22→16:02)
[2016-09-05] MEDS: BISACODYL 10 MG SUPP RECTAL SCH (08:23)
[2016-09-05] MEDS: LISINOPRIL 20 MG TAB PO SCH ×2 (08:23→21:34)
[2016-09-05] MEDS: LACTULOSE SYRUP 20 GM/30 ML CUP PO SCH ×2 (08:25→21:00)
[2016-09-05] MEDS: SODIUM CHLORIDE 0.9% FLUSH 5 ML FLUSH IVF SCH (08:25)
[2016-09-05] MEDS: CHLORHEXIDINE 0.12% (ORAL KIT) 15 ML CUP MT SCH ×2 (08:25→21:34)
[2016-09-05] MEDS: DOCUSATE SODIUM 100 MG CAP PO SCH ×2 (08:25→21:00)
[2016-09-05] MEDS: POLYETHYLENE GLYCOL 17 GM PKG PO SCH ×2 (08:25→21:00)
[2016-09-05] MEDS: JUVEN POWDER 1 PACK G-TUBE SCH ×2 (09:00→21:00)
[2016-09-05] MEDS: POTASSIUM CL 40 MEQ/30 ML LIQ UDC PO/TUBE PRN ×2 (09:17→16:02)
[2016-09-05] MEDS: RESP: ALBUTEROL 2.5 MG/IPRATROPIUM 0.5 MG NEB (PRN) INH (10:02)
--- NOTE | 2016-09-05 12:00 | HHI.CCPN ---
Subjective Remarks/Hospital Course This is a middle-aged male. Date of admission 08/26/2016. Past medical history is unknown. His real name is Rafy Ruiz. Haritha Ruiz [phone] is the health proxy. Per ED report, patient was acute onset 1 hour prior to admission of right upper and lower extremity weakness and dysarthria. Upon presentation to the ED, patient was quite hypertensive and had decreased responsiveness. Patient was intubated by ED physician. [address] head revealed a left intraparenchymal hemorrhage/basal ganglia with extension to the lateral ventricle with a 5 mm shift to the right. Neurosurgery was consulted/Dr. Croft who placed Right frontal ventriculostomy. Laboratories reveal potassium 2.8. Currently on Cardene drip at 15 mg an hour. SUBJ: Remains intubated, on fentanyl. Propofol on hold. On Cardene infusion at 1mg per hour. Ventric with 87 ml blood-tinged CSF since placement. ICP well controlled,. Patient's [id number] is at the bedside, is in [place] 08/28: continues to have poor neurologic exam. on Cardene at 5mg/hr this AM. EVD with blood-tinged CSF, patent. ICP controlled. not yet on sedation hold this AM to my exam. 08/29: no change in neuro exam. cardene persists for blood pressure control. 08/30: encephalopathy persists. still on cardene at 5mg/hr for blood pressure. 08/31: hypernatremia persists. poor neuro exam still. unable to tolerate sedation holiday due to hypertension. labetalol increased yesterday with only mild improvements. did not diurese well with lasix 20 yesterday. 09/01: Remains off sedation since yesterday. Appears to localize with left upper extremity. Blood pressure control improved. Urine output excellent 3.9 L in 24 hours, EVD with 192 mL output in 24 hours 09/02: No improvement in neurological function. 09/03: No change in neuro status. Still waiting for photo ID. 09/04: No change. Plan trach today to facilitate long-tern vent weaning. 09/05: Hypertensive. Will increase lisinopril and add lopressor. Objective Vital Signs Date Time Temp Pulse Resp B/P Pulse Ox O2 Delivery O2 Flow Rate FiO2 09/05/16 09:59 97 45 09/05/16 07:00 97 09/05/16 04:00 99.7 18 159/86 Intake and Output 09/04/16 09/04/16 09/05/16 08:00 16:00 00:00 Intake Total 515 ml 395 ml 455 ml Output Total 1035 ml 2220 ml 1540 ml Balance -520 ml -1825 ml -1085 ml Result Diagram: 09/04/16 0400 09/05/16 0258 Imaging Last Impressions Head CT 08/26/16 0000 Signed Impressions: Service Date/Time: Friday, August 26, 2016 15:41 - CONCLUSION: 1. Large intraparenchymal hemorrhage in the left basal ganglia with extension into left lateral ventricle. 2. Surrounding edema and mild midline shift to the right. Frederick Zaldivar MD Chest X-Ray 08/26/16 0000 Signed Impressions: Service Date/Time: Friday, August 26, 2016 14:37 - CONCLUSION: 1. Status post intubation with the endotracheal tube tip approximately 5 cm above the chela. 2. Midinspiratory study with crowding of the lung vasculature. Frederick Zaldivar MD Objective Remarks GENERAL: Middle-aged male, orotracheally intubated SKIN: Warm, dry. HEAD: Atraumatic. Normocephalic. R frontal ventriculostomy with red CSF, patent. EYES:. No scleral icterus. No injection or drainage. ENT: No nasal bleeding or discharge. orotracheally intubated. NECK: Trachea midline. No JVD. Orally intubated CARDIOVASCULAR: Regular rate and rhythm. No m,r. No JVD. RESPIRATORY: Clear to auscultation. Breath sounds equal bilaterally. mechanically ventilated. Tolerates CPA trial. GASTROINTESTINAL: Abdomen soft, non-tender, nondistended. no guarding. BS active. MUSCULOSKELETAL: Extremities without difficulty peripheral edema. No obvious deformities. Warm, well perfused. NEUROLOGICAL: Positive corneal reflex. flaccid right upper extremity, appears to localize with left upper extremity still and slightly withdraws lower extremities to pain A/P Assessment and Plan Assessment: middle-aged male with large left basal ganglia ICH. His ICH score is 2, giving him an estimated 37% 30-day mortality. MRI, however, is positive for a number of other small hemorrhages which neurosurgery think may be related to possible amyloid angiopathy, and likely his prognosis is much poorer than initially estimated. His course is complicated by acute hypoxic and hypercarbic respiratory failure. Neuro/Psych: Left basal ganglia intraparenchymal hemorrhage s/p Right frontal ventriculostomy placement 08/[address] head revealed left basal ganglia intraparenchymal hemorrhage 3.42 cm with extension to lateral ventricle, midline shift 5 mm to the right. Neurosurgery/Dr. Croft. Right frontal twist drill hole ventriculostomy. Neuro checks q1h Goal systolic blood pressure less than 140 continue to keep Na 145-150 Keppra 500 IV every 12 hours each prophylaxis 7 days ICP currently well controlled -- EEG 08/30: generalized slowing, no seizure activity. CV: Hypertensive emergency Currently off Cardene drip continue amlodipine 10mg po daily continue labetalol 400mg po q8h continue hydralazine 50mg po q8hr. goal SBP < 140. Hydralazine 100 tid, lisinopril 20 po bid, lopressor 50 bid. Resp: Acute hypoxic and hypercarbic respiratory failure PRVC Ventilator bundle As needed bronchodilator therapy Spontaneous breathing trials when clinically indicated, and cleared by neurosurgery, does not meet criteria today. wean fio2 for goal spo2 > 90%. HOB at 30 degrees. CPAP trilas GI: Acute Protein Calorie Malnutrition-mild Constipation Tube feeds with Jevity, having BM Protonix for GI prophylaxis Colace/as needed Senokot for bowel regimen. goal daily bowel movements. : Izaguirre for accurate I/Os in this critically ill patient Endo: Hyperglycemia of Critical Illness Sliding-scale insulin with Accu-Cheks every 4 hours to maintain euglycemia. Low regimen Renal: Intravascular hypervolemia Monitor renal function closely Started on lasix 20 BID Heme: daily CBC. ID: Monitor for infection FEN: Hypokalemia Replace per ICU electrolyte protocol. MSK: PT evaluate and treat Access - Right IJ CVL 08/26, change. - arterial line - izaguirre Prophylaxis - GI - Protonix - DVT - SCDs/pharmacological prophylaxis contraindicated with intracranial hemorrhage Overall impression: Severe brain bleed with poor recovery of neurological function. Tracheostomy placed. BP meds increased. Placement in 2-3 days. Jonny Samuels MD Sep 05, 2016 12:00
--- NOTE | 2016-09-05 12:27 | HHI.NSPN ---
(Sergey Melton) History Chief Complaint: Left basal ganglia hemorrhage (Sergey Melton) Interval History This is a middle-aged gentleman who apparently was brought to [facility] Emergency Room with acute onset of right-sided weakness and slurred speech. He was hypertensive on presentation and had a declining neurologic examination requiring intubation for airway control with ventilator support. CT scan of the head obtained reveals a basal ganglia hemorrhage on the left side measuring about 3.4 cm in diameter. There is also extension of the hemorrhage into the left lateral ventricle. No hydrocephalus is noted, although left temporal horn is dilated. Currently there is no friends or family members here to relate a history and his identity is unknown. 08/27/16: Pt sedated on Diprivan. Not opening eyes. Not following commands. Pupils 2mm bilaterally slight reaction bilaterally. 08/28/16: Pt sedated on Diprivan. Not opening eyes. Pupils 2mm bilaterally slight brisk reaction. Not following commands. 08/29/16: Pt sedated with Diprivan and Fentanyl drips. Not opening eyes. Pupils 2mm bilaterally slight brisk reaction. Not following commands. 09/01/16: Pt off sedation. Not opening eyes. Pupils 3mm bilaterally reactive. Not following commands. Ventriculostomy in place. ICP 18 after stimulation. 09/02/16: Pt off sedation. Not opening eyes to pain. Pupils 3mm bilaterally reactive bilaterally. Not following commands. ICP 11 with ventriculostomy drain at [id number]. 09/03/16: Pt off sedative drips. Not opening eyes. Ventriculostomy drain clamped, reportedly had to be opened multiple times last night. Currently tolerating clamping since 730am. 09/04/16: Pt not opening eyes. Pupils 4mm bilaterally reactive bilaterally. Not following commands. Withdraws UEs to pain. Localizes with LUE to pain in upper chest. 09/05/16: Pt not opening eyes. Pupils 4mm bilaterally reactive bilaterally. Not following commands. Spontaneously moves LUE. Localizes to pain with LUE. Right hemiparesis but withdraws to pain. (Sergey Melton) System Review Comments Not able to obtain given clinical condition. (Sergey Melton) Exam Results Vital Signs Date Time Temp Pulse Resp B/P Pulse Ox O2 Delivery O2 Flow Rate FiO2 09/05/16 09:59 97 45 09/05/16 07:00 97 09/05/16 04:00 99.7 18 159/86 Intake and Output 09/04/16 09/04/16 09/05/16 08:00 16:00 00:00 Intake Total 515 ml 395 ml 455 ml Output Total 1035 ml 2220 ml 1540 ml Balance -520 ml -1825 ml -1085 ml (Sergey Melton) Physical Examination Heart: NSR. No murmurs. Resp: CTA bilaterally. Trach in place. FiO2 45%. PEEP 5 Pressure controlled rate 16. Abd: Soft positive bs. NG TFs at 50ml/hr. Skin: No cyanosis or erythema. SCDs in place. Muscle: Not following for muscle testing. Withdraws all 4 extremities to pain , right hemiparesis. Localizes with LUE to pain in upper chest. Neuro: Pt off sedative drips. Pt not opening eyes. Pupils 4mm bilaterally, reactive bilaterally. Not following commands. Ventriculostomy in place at 25 cmH2O, ICP 18. (Sergey Melton) Lab, Micro, Other Results Laboratory Tests Test 09/05/16 02:58 Sodium Level 146 MEQ/L Potassium Level 2.6 MEQ/L Chloride Level 109 MEQ/L Carbon Dioxide Level 23.5 MEQ/L Anion Gap 14 MEQ/L Blood Urea Nitrogen 39 MG/DL Creatinine 1.12 MG/DL Estimat Glomerular Filtration 57 ML/MIN Rate Random Glucose 108 MG/DL Calcium Level 9.4 MG/DL 09/04/16 09/04/16 09/05/16 15:00 23:00 07:00 Intake Total 395 ml 455 ml 200 ml Output Total 2220 ml 1540 ml 1040 ml Balance -1825 ml -1085 ml -840 ml Intake IV Total 395 ml 255 ml 200 ml Other 200 ml Output Urine Total 2200 ml 1500 ml 1000 ml Drainage Total 20 ml 40 ml 40 ml # Bowel Movements 0 0 0 (Sergey Melton) Medical Decision Making Impression and Plan A: M with Left basal ganglia hemorrhage with intraventricular extension with mild hydrocephalus. This is a characteristic of a hypertensive bleed. 2. Unregulated hypertension. 3. Respiratory failure secondary to the intracranial hemorrhage. PLAN Continue with ventriculostomy drain being challenged. Continue with blood pressure control Continue with critical care- intubation. (Sergey Melton) Attending Statement The exam, history, and the medical decision-making described in the above note were completed with the assistance of the mid-level provider. I reviewed and agree with the findings presented. I attest that I had a [id number] encounter with the patient on the same day, and personally performed and documented my assessment and findings in the medical record. Ventriculostomy to 20 mmHg level still draining 100 cc a day blood-tinged CSF. Continue with the current management and supportive care. (Jeff Croft MD) Sergey Melton Sep 05, 2016 12:27 Jeff Croft MD Sep 05, 2016 15:59
[2016-09-05] MEDS: METOPROLOL TARTRATE 50 MG TAB PO SCH ×2 (16:02→21:34)
[2016-09-06] VITALS (17 sets, daily range): BP systolic 119–170; BP diastolic 61–87; PULSE 85–101; RESP 15–20; TEMP 98.5–101.3; O2SAT 94–97
[2016-09-06] MEDS: FREE WATER G-TUBE SCH ×6 (04:00→20:00)
[2016-09-06] MEDS: CHLORHEXIDINE GLUCONATE 2 % 1 PACK (2 CLOTHS) TOP SCH (04:00)
[2016-09-06] MEDS: INSULIN NovoLIN REGULAR SUPPLEMENTAL SCALE SQ SCH ×6 (04:00→20:00)
[2016-09-06] MEDS: hydrALAZINE HCL 100 MG TAB PO SCH ×3 (06:00→22:00)
[2016-09-06] MEDS: LABETALOL HCL 200 MG TAB PO SCH ×3 (06:00→22:23)
--- NOTE | 2016-09-06 07:13 | HHI.NSPN ---
(Sergey Melton) History Chief Complaint: Left basal ganglia hemorrhage (Sergey Melton) Interval History This is a middle-aged gentleman who apparently was brought to [facility] Emergency Room with acute onset of right-sided weakness and slurred speech. He was hypertensive on presentation and had a declining neurologic examination requiring intubation for airway control with ventilator support. CT scan of the head obtained reveals a basal ganglia hemorrhage on the left side measuring about 3.4 cm in diameter. There is also extension of the hemorrhage into the left lateral ventricle. No hydrocephalus is noted, although left temporal horn is dilated. Currently there is no friends or family members here to relate a history and his identity is unknown. 08/27/16: Pt sedated on Diprivan. Not opening eyes. Not following commands. Pupils 2mm bilaterally slight reaction bilaterally. 08/28/16: Pt sedated on Diprivan. Not opening eyes. Pupils 2mm bilaterally slight brisk reaction. Not following commands. 08/29/16: Pt sedated with Diprivan and Fentanyl drips. Not opening eyes. Pupils 2mm bilaterally slight brisk reaction. Not following commands. 09/01/16: Pt off sedation. Not opening eyes. Pupils 3mm bilaterally reactive. Not following commands. Ventriculostomy in place. ICP 18 after stimulation. 09/02/16: Pt off sedation. Not opening eyes to pain. Pupils 3mm bilaterally reactive bilaterally. Not following commands. ICP 11 with ventriculostomy drain at [id number]. 09/03/16: Pt off sedative drips. Not opening eyes. Ventriculostomy drain clamped, reportedly had to be opened multiple times last night. Currently tolerating clamping since 730am. 09/04/16: Pt not opening eyes. Pupils 4mm bilaterally reactive bilaterally. Not following commands. Withdraws UEs to pain. Localizes with LUE to pain in upper chest. 09/05/16: Pt not opening eyes. Pupils 4mm bilaterally reactive bilaterally. Not following commands. Spontaneously moves LUE. Localizes to pain with LUE. Right hemiparesis but withdraws to pain. 09/06/16: Pt not opening eyes. Off sedation. Pupils 4mm bilaterally reactive bilaterally. Not following commands. spontaneously moves LUE. Localizes to pain with LUE. Right hemiparesis. (Sergey Melton) System Review Comments Not able to obtain given clinical condition. (Sergey Melton) Exam Results Vital Signs Date Time Temp Pulse Resp B/P Pulse Ox O2 Delivery O2 Flow Rate FiO2 09/06/16 04:34 97 40 09/06/16 04:00 100.1 85 20 144/76 Intake and Output 09/05/16 09/05/16 09/06/16 08:00 16:00 00:00 Intake Total 200 ml 1171 ml 806 ml Output Total 1040 ml 1395 ml 1010 ml Balance -840 ml -224 ml -204 ml (Sergey Melton) Physical Examination Heart: NSR. No murmurs. Resp: CTA bilaterally. Trach in place. FiO2 40%. PEEP 5 Pressure controlled rate 14. Abd: Soft positive bs. Skin: No cyanosis or erythema. SCDs in place. Muscle: Not following for muscle testing. Withdraws all 4 extremities to pain , right hemiparesis. Localizes with LUE to pain in upper chest. Some spontaneous movement with LUE. Neuro: Pt off sedative drips. Pt not opening eyes. Pupils 4mm bilaterally, reactive bilaterally. Not following commands. Ventriculostomy in place at 27 cmH2O. ICP 19. (Sergey Melton) Lab, Micro, Other Results Last Impressions Chest X-Ray 09/04/16 0000 Signed Impressions: Service Date/Time: August 10:50 - CONCLUSION: Tracheostomy tube in good position. Persistent basilar densities either relating to infiltrates or perhaps posterior layering pleural effusions. Isael Gates Jr., MD Head Magnetic Resonance Angiography 08/27/16 0000 Signed Impressions: Service Date/Time: Saturday, August 27, 2016 16:49 - CONCLUSION: Negative MRA of the brain. Vargas Freitas MD FACR Brain MRI 08/27/16 0000 Signed Impressions: Service Date/Time: Saturday, August 27, 2016 16:49 - CONCLUSION: 1. Large thalamic hemorrhage as described above. Extensive periventricular white matter changes are noted. There is compression of the third ventricle. Ventriculostomy is seen in the right lateral ventricle. 2. Hemorrhage does extend down the white matter tracts to the level of the right cerebral peduncle. Vargas Freitas MD FACR Head CT 08/26/16 0000 Signed Impressions: Service Date/Time: Friday, August 26, 2016 15:41 - CONCLUSION: 1. Large intraparenchymal hemorrhage in the left basal ganglia with extension into left lateral ventricle. 2. Surrounding edema and mild midline shift to the right. Frederick Zaldivar MD Laboratory Tests Test 09/05/16 12:17 Potassium Level 3.5 MEQ/L 09/05/16 09/05/16 09/06/16 15:00 23:00 07:00 Intake Total 1171 ml 806 ml 820 ml Output Total 1395 ml 1010 ml 465 ml Balance -224 ml -204 ml 355 ml Intake IV Total 413 ml 171 ml Tube Feeding 358 ml 435 ml 420 ml Other 400 ml 200 ml 400 ml Output Urine Total 1350 ml 1000 ml 450 ml Drainage Total 45 ml 10 ml 15 ml # Bowel Movements 0 0 1 (Sergey Melton) Medical Decision Making Impression and Plan A: M with Left basal ganglia hemorrhage with intraventricular extension with mild hydrocephalus. This is a characteristic of a hypertensive bleed. 2. Unregulated hypertension. 3. Respiratory failure secondary to the intracranial hemorrhage. PLAN Continue with ventriculostomy drain being challenged. Continue with blood pressure control Continue with critical care- intubation. (Sergey Melton) Attending Statement The exam, history, and the medical decision-making described in the above note were completed with the assistance of the mid-level provider. I reviewed and agree with the findings presented. I attest that I had a [id number] encounter with the patient on the same day, and personally performed and documented my assessment and findings in the medical record. ICP in the teens with a ventriculostomy level that 20 mmHg and draining 70-100 cc of blood- tinged CSF a day. Continue with the ventriculostomy and wean ventilator as tolerated along with hypertension regulation. (Jeff Croft MD) Sergey Melton Sep 06, 2016 07:13 Jeff Croft MD Sep 06, 2016 12:35
[2016-09-06] MEDS: CHLORHEXIDINE 0.12% (ORAL KIT) 15 ML CUP MT SCH ×2 (08:00→19:54)
[2016-09-06] MEDS: ARTIFICIAL TEARS OPTH SOLN 15 ML BTL EACH EYE SCH ×3 (09:00→18:00)
[2016-09-06] MEDS: LACTULOSE SYRUP 20 GM/30 ML CUP PO SCH ×2 (09:00→21:00)
[2016-09-06] MEDS: BISACODYL 10 MG SUPP RECTAL SCH (09:00)
[2016-09-06] MEDS: SODIUM CHLORIDE 0.9% FLUSH 5 ML FLUSH IVF SCH (09:00)
[2016-09-06] MEDS: POLYETHYLENE GLYCOL 17 GM PKG PO SCH ×2 (09:00→21:00)
[2016-09-06] MEDS: JUVEN POWDER 1 PACK G-TUBE SCH ×2 (09:00→20:38)
[2016-09-06] MEDS: DOCUSATE SODIUM 100 MG CAP PO SCH ×2 (09:00→21:00)
[2016-09-06] MEDS: SODIUM CHLORIDE 0.9% FLUSH 5 ML FLUSH IV FLUSH SCH ×2 (09:00→19:54)
[2016-09-06] MEDS: PANTOPRAZOLE SODIUM 40 MG VIAL IV SCH (09:18)
[2016-09-06] MEDS: FUROSEMIDE 40 MG/4 ML VIAL IV PUSH SCH ×2 (09:18→18:44)
[2016-09-06] MEDS: METOPROLOL TARTRATE 50 MG TAB PO SCH ×2 (09:19→19:54)
[2016-09-06] MEDS: LISINOPRIL 20 MG TAB PO SCH ×2 (09:19→21:27)
[2016-09-06] MEDS: ACETAMINOPHEN 325 MG TAB PO PRN ×2 (11:06→19:53)
[2016-09-06] MEDS: hydrALAZINE HCL 20 MG/ML VIAL IV PUSH PRN (12:12)
[2016-09-06] MEDS: POTASSIUM CHLOR 20 MEQ PREMIX 100 ML IV PRN (15:46)
[2016-09-07] VITALS (19 sets, daily range): BP systolic 123–165; BP diastolic 70–90; PULSE 83–100; RESP 15–17; TEMP 99.1–100.8; O2SAT 95–100
[2016-09-07] MEDS: INSULIN NovoLIN REGULAR SUPPLEMENTAL SCALE SQ SCH ×7 (00:03→23:22)
[2016-09-07] MEDS: POTASSIUM CL 40 MEQ/30 ML LIQ UDC PO/TUBE PRN (00:40)
[2016-09-07] MEDS: hydrALAZINE HCL 100 MG TAB PO SCH ×4 (03:28→23:09)
[2016-09-07] MEDS: FREE WATER G-TUBE SCH ×7 (04:00→23:14)
[2016-09-07] MEDS: CHLORHEXIDINE GLUCONATE 2 % 1 PACK (2 CLOTHS) TOP SCH (04:22)
[2016-09-07] MEDS: LABETALOL HCL 200 MG TAB PO SCH ×2 (05:07→14:00)
--- NOTE | 2016-09-07 07:32 | HHI.NSPN ---
History Chief Complaint: Left basal ganglia hemorrhage Interval History This is a middle-aged gentleman who apparently was brought to [facility] Emergency Room with acute onset of right-sided weakness and slurred speech. He was hypertensive on presentation and had a declining neurologic examination requiring intubation for airway control with ventilator support. CT scan of the head obtained reveals a basal ganglia hemorrhage on the left side measuring about 3.4 cm in diameter. There is also extension of the hemorrhage into the left lateral ventricle. No hydrocephalus is noted, although left temporal horn is dilated. Currently there is no friends or family members here to relate a history and his identity is unknown. 08/27/16: Pt sedated on Diprivan. Not opening eyes. Not following commands. Pupils 2mm bilaterally slight reaction bilaterally. 08/28/16: Pt sedated on Diprivan. Not opening eyes. Pupils 2mm bilaterally slight brisk reaction. Not following commands. 08/29/16: Pt sedated with Diprivan and Fentanyl drips. Not opening eyes. Pupils 2mm bilaterally slight brisk reaction. Not following commands. 09/01/16: Pt off sedation. Not opening eyes. Pupils 3mm bilaterally reactive. Not following commands. Ventriculostomy in place. ICP 18 after stimulation. 09/02/16: Pt off sedation. Not opening eyes to pain. Pupils 3mm bilaterally reactive bilaterally. Not following commands. ICP 11 with ventriculostomy drain at [id number]. 09/03/16: Pt off sedative drips. Not opening eyes. Ventriculostomy drain clamped, reportedly had to be opened multiple times last night. Currently tolerating clamping since 730am. 09/04/16: Pt not opening eyes. Pupils 4mm bilaterally reactive bilaterally. Not following commands. Withdraws UEs to pain. Localizes with LUE to pain in upper chest. 09/05/16: Pt not opening eyes. Pupils 4mm bilaterally reactive bilaterally. Not following commands. Spontaneously moves LUE. Localizes to pain with LUE. Right hemiparesis but withdraws to pain. 09/06/16: Pt not opening eyes. Off sedation. Pupils 4mm bilaterally reactive bilaterally. Not following commands. spontaneously moves LUE. Localizes to pain with LUE. Right hemiparesis. 09/07/16: Pt not opening eyes. No sedation. Pupils 4mm bilaterally, reactive bilaterally. Not following commands. right hemiparesis. Spontaneous movement in LUE and localizes to pain with LUE. System Review Comments Not able to obtain given level of alertness and clinical condition. Exam Results Vital Signs Date Time Temp Pulse Resp B/P Pulse Ox O2 Delivery O2 Flow Rate FiO2 09/07/16 06:00 95 09/07/16 04:00 100.0 17 137/70 95 09/07/16 04:00 40 Intake and Output 09/06/16 09/06/16 09/07/16 08:00 16:00 00:00 Intake Total 820 ml 1137 ml 728 ml Output Total 465 ml 1443 ml 1155 ml Balance 355 ml -306 ml -427 ml Physical Examination Heart: NSR. No murmurs. Resp: CTA bilaterally. Trach in place. FiO2 40%. PEEP 5 Pressure controlled rate 14. Abd: Soft positive bs. Skin: No cyanosis or erythema. SCDs in place. Muscle: Not following for muscle testing. Withdraws all 4 extremities to pain , right hemiparesis. Localizes with LUE to pain in upper chest. Some spontaneous movement with LUE. Neuro: Pt off sedative drips. Pt not opening eyes. Pupils 4mm bilaterally, reactive bilaterally. Not following commands. Ventriculostomy in place at 27 cmH2O. ICP 16. Lab, Micro, Other Results Laboratory Tests Test 09/06/16 09/06/16 12:36 21:49 Potassium Level 3.1 MEQ/L 3.4 MEQ/L 09/06/16 09/06/16 09/07/16 15:00 23:00 07:00 Intake Total 1137 ml 728 ml 862 ml Output Total 1443 ml 1155 ml 438 ml Balance -306 ml -427 ml 424 ml Intake IV Total 163 ml 140 ml 219 ml Tube Feeding 374 ml 328 ml 343 ml Other 600 ml 260 ml 300 ml Output Urine Total 1400 ml 1125 ml 425 ml Drainage Total 43 ml 30 ml 13 ml # Bowel Movements 1 0 0 Medical Decision Making Impression and Plan A: M with Left basal ganglia hemorrhage with intraventricular extension with mild hydrocephalus. This is a characteristic of a hypertensive bleed. 2. Unregulated hypertension. 3. Respiratory failure secondary to the intracranial hemorrhage. PLAN Continue with ventriculostomy drain being challenged. Continue with blood pressure control Continue with critical care- intubation. Sergey Melton Sep 07, 2016 07:32
[2016-09-07] MEDS: CHLORHEXIDINE 0.12% (ORAL KIT) 15 ML CUP MT SCH ×2 (08:00→19:50)
[2016-09-07] MEDS: SODIUM CHLORIDE 0.9% FLUSH 5 ML FLUSH IVF SCH (08:25)
[2016-09-07] MEDS: SODIUM CHLORIDE 0.9% FLUSH 5 ML FLUSH IV FLUSH SCH ×2 (08:25→20:11)
[2016-09-07] MEDS: JUVEN POWDER 1 PACK G-TUBE SCH ×2 (08:25→21:00)
[2016-09-07] MEDS: FUROSEMIDE 40 MG/4 ML VIAL IV PUSH SCH (08:25)
[2016-09-07] MEDS: ARTIFICIAL TEARS OPTH SOLN 15 ML BTL EACH EYE SCH ×3 (08:25→17:04)
[2016-09-07] MEDS: PANTOPRAZOLE SODIUM 40 MG VIAL IV SCH (08:25)
[2016-09-07] MEDS: METOPROLOL TARTRATE 50 MG TAB PO SCH ×2 (08:26→20:10)
[2016-09-07] MEDS: DOCUSATE SODIUM 100 MG CAP PO SCH ×2 (08:26→20:09)
[2016-09-07] MEDS: LACTULOSE SYRUP 20 GM/30 ML CUP PO SCH ×2 (08:26→20:10)
[2016-09-07] MEDS: POLYETHYLENE GLYCOL 17 GM PKG PO SCH ×2 (08:26→20:10)
[2016-09-07] MEDS: BISACODYL 10 MG SUPP RECTAL SCH (08:27)
[2016-09-07] MEDS: LISINOPRIL 20 MG TAB PO SCH ×3 (08:27→23:09)
[2016-09-07] MEDS: ACETAMINOPHEN 325 MG TAB PO PRN ×3 (08:28→20:02)
--- NOTE | 2016-09-07 17:31 | HHI.CCPN ---
Subjective Remarks/Hospital Course Note for 09/06/16: This is a middle-aged male. Date of admission 08/26/2016. Past medical history is unknown. His real name is Rafy Ruiz. Haritha Ruiz [phone] is the health proxy. Per ED report, patient was acute onset 1 hour prior to admission of right upper and lower extremity weakness and dysarthria. Upon presentation to the ED, patient was quite hypertensive and had decreased responsiveness. Patient was intubated by ED physician. [address] head revealed a left intraparenchymal hemorrhage/basal ganglia with extension to the lateral ventricle with a 5 mm shift to the right. Neurosurgery was consulted/Dr. Croft who placed Right frontal ventriculostomy. Laboratories reveal potassium 2.8. Currently on Cardene drip at 15 mg an hour. SUBJ: Remains intubated, on fentanyl. Propofol on hold. On Cardene infusion at 1mg per hour. Ventric with 87 ml blood-tinged CSF since placement. ICP well controlled,. Patient's [id number] is at the bedside, is in [place] 08/28: continues to have poor neurologic exam. on Cardene at 5mg/hr this AM. EVD with blood-tinged CSF, patent. ICP controlled. not yet on sedation hold this AM to my exam. 08/29: no change in neuro exam. cardene persists for blood pressure control. 08/30: encephalopathy persists. still on cardene at 5mg/hr for blood pressure. 08/31: hypernatremia persists. poor neuro exam still. unable to tolerate sedation holiday due to hypertension. labetalol increased yesterday with only mild improvements. did not diurese well with lasix 20 yesterday. 09/01: Remains off sedation since yesterday. Appears to localize with left upper extremity. Blood pressure control improved. Urine output excellent 3.9 L in 24 hours, EVD with 192 mL output in 24 hours 09/02: No improvement in neurological function. 09/03: No change in neuro status. Still waiting for photo ID. 09/04: No change. Plan trach today to facilitate long-tern vent weaning. 09/05: Hypertensive. Will increase lisinopril and add lopressor. 09/06: Transitioning to oral hypertension meds. Trach site dry clean. Objective Vital Signs Date Time Temp Pulse Resp B/P Pulse Ox O2 Delivery O2 Flow Rate FiO2 09/07/16 16:38 16 09/07/16 16:00 100.4 97 148/90 97 09/07/16 16:00 40 Intake and Output 09/06/16 09/06/16 09/07/16 08:00 16:00 00:00 Intake Total 820 ml 1137 ml 728 ml Output Total 465 ml 1443 ml 1155 ml Balance 355 ml -306 ml -427 ml Result Diagram: 09/04/16 0400 09/06/16 2149 Imaging Last Impressions Head CT 08/26/16 0000 Signed Impressions: Service Date/Time: Friday, August 26, 2016 15:41 - CONCLUSION: 1. Large intraparenchymal hemorrhage in the left basal ganglia with extension into left lateral ventricle. 2. Surrounding edema and mild midline shift to the right. Frederick Zaldivar MD Chest X-Ray 08/26/16 0000 Signed Impressions: Service Date/Time: Friday, August 26, 2016 14:37 - CONCLUSION: 1. Status post intubation with the endotracheal tube tip approximately 5 cm above the chela. 2. Midinspiratory study with crowding of the lung vasculature. Frederick Zaldivar MD Objective Remarks GENERAL: Middle-aged male, orotracheally intubated SKIN: Warm, dry. HEAD: Atraumatic. Normocephalic. R frontal ventriculostomy with red CSF, patent. EYES:. No scleral icterus. No injection or drainage. ENT: No nasal bleeding or discharge. orotracheally intubated. NECK: Trachea midline. No JVD. Orally intubated CARDIOVASCULAR: Regular rate and rhythm. No m,r. No JVD. RESPIRATORY: Clear to auscultation. Breath sounds equal bilaterally. mechanically ventilated. Tolerates CPA trial. GASTROINTESTINAL: Abdomen soft, non-tender, nondistended. no guarding. BS active. MUSCULOSKELETAL: Extremities without difficulty peripheral edema. No obvious deformities. Warm, well perfused. NEUROLOGICAL: Positive corneal reflex. flaccid right upper extremity, appears to localize with left upper extremity still and slightly withdraws lower extremities to pain A/P Assessment and Plan Assessment: middle-aged male with large left basal ganglia ICH. His ICH score is 2, giving him an estimated 37% 30-day mortality. MRI, however, is positive for a number of other small hemorrhages which neurosurgery think may be related to possible amyloid angiopathy, and likely his prognosis is much poorer than initially estimated. His course is complicated by acute hypoxic and hypercarbic respiratory failure. Neuro/Psych: Left basal ganglia intraparenchymal hemorrhage s/p Right frontal ventriculostomy placement 08/[address] head revealed left basal ganglia intraparenchymal hemorrhage 3.42 cm with extension to lateral ventricle, midline shift 5 mm to the right. Neurosurgery/Dr. Croft. Right frontal twist drill hole ventriculostomy. Neuro checks q1h Goal systolic blood pressure less than 140 continue to keep Na 145-150 Keppra 500 IV every 12 hours each prophylaxis 7 days ICP currently well controlled -- EEG 08/30: generalized slowing, no seizure activity. CV: Hypertensive emergency Currently off Cardene drip continue amlodipine 10mg po daily continue labetalol 400mg po q8h continue hydralazine 50mg po q8hr. goal SBP < 140. Hydralazine 100 tid, lisinopril 20 po bid, lopressor 50 bid. Resp: Acute hypoxic and hypercarbic respiratory failure PRVC Ventilator bundle As needed bronchodilator therapy Spontaneous breathing trials when clinically indicated, and cleared by neurosurgery, does not meet criteria today. wean fio2 for goal spo2 > 90%. HOB at 30 degrees. CPAP trilas GI: Acute Protein Calorie Malnutrition-mild Constipation Tube feeds with Jevity, having BM Protonix for GI prophylaxis Colace/as needed Senokot for bowel regimen. goal daily bowel movements. : Izaguirre for accurate I/Os in this critically ill patient Endo: Hyperglycemia of Critical Illness Sliding-scale insulin with Accu-Cheks every 4 hours to maintain euglycemia. Low regimen Renal: Intravascular hypervolemia Monitor renal function closely Started on lasix 20 BID Heme: daily CBC. ID: Monitor for infection FEN: Hypokalemia Replace per ICU electrolyte protocol. MSK: PT evaluate and treat Access - Right IJ CVL 08/26, change. - arterial line - izaguirre Prophylaxis - GI - Protonix - DVT - SCDs/pharmacological prophylaxis contraindicated with intracranial hemorrhage Overall impression: Severe brain bleed with poor recovery of neurological function. Tracheostomy placed. BP meds increased. Placement in 2-3 days hopefully. Jonny Samuels MD Sep 07, 2016 17:31
--- NOTE | 2016-09-07 17:38 | HHI.CCPN ---
Subjective Remarks/Hospital Course Note for 09/07/16: This is a middle-aged male. Date of admission 08/26/2016. Past medical history is unknown. His real name is Rafy Ruiz. Haritha Ruiz [phone] is the health proxy. Per ED report, patient was acute onset 1 hour prior to admission of right upper and lower extremity weakness and dysarthria. Upon presentation to the ED, patient was quite hypertensive and had decreased responsiveness. Patient was intubated by ED physician. [address] head revealed a left intraparenchymal hemorrhage/basal ganglia with extension to the lateral ventricle with a 5 mm shift to the right. Neurosurgery was consulted/Dr. Croft who placed Right frontal ventriculostomy. Laboratories reveal potassium 2.8. Currently on Cardene drip at 15 mg an hour. SUBJ: Remains intubated, on fentanyl. Propofol on hold. On Cardene infusion at 1mg per hour. Ventric with 87 ml blood-tinged CSF since placement. ICP well controlled,. Patient's [id number] is at the bedside, is in [place] 08/28: continues to have poor neurologic exam. on Cardene at 5mg/hr this AM. EVD with blood-tinged CSF, patent. ICP controlled. not yet on sedation hold this AM to my exam. 08/29: no change in neuro exam. cardene persists for blood pressure control. 08/30: encephalopathy persists. still on cardene at 5mg/hr for blood pressure. 08/31: hypernatremia persists. poor neuro exam still. unable to tolerate sedation holiday due to hypertension. labetalol increased yesterday with only mild improvements. did not diurese well with lasix 20 yesterday. 09/01: Remains off sedation since yesterday. Appears to localize with left upper extremity. Blood pressure control improved. Urine output excellent 3.9 L in 24 hours, EVD with 192 mL output in 24 hours 09/02: No improvement in neurological function. 09/03: No change in neuro status. Still waiting for photo ID. 09/04: No change. Plan trach today to facilitate long-tern vent weaning. 09/05: Hypertensive. Will increase lisinopril and add lopressor. 09/06: Transitioning to oral hypertension meds. Trach site dry clean. 09/07: BP control acceptable but needs fine tuning. Diuresis has been adequate - hold for now. Tolerates up to 2 hours CPAP - now a long-term weaning problem. Objective Vital Signs Date Time Temp Pulse Resp B/P Pulse Ox O2 Delivery O2 Flow Rate FiO2 09/07/16 16:38 16 09/07/16 16:00 100.4 97 148/90 97 09/07/16 16:00 40 Intake and Output 09/06/16 09/06/16 09/07/16 08:00 16:00 00:00 Intake Total 820 ml 1137 ml 728 ml Output Total 465 ml 1443 ml 1155 ml Balance 355 ml -306 ml -427 ml Result Diagram: 09/04/16 0400 09/06/16 2149 Imaging Last Impressions Head CT 08/26/16 0000 Signed Impressions: Service Date/Time: Friday, August 26, 2016 15:41 - CONCLUSION: 1. Large intraparenchymal hemorrhage in the left basal ganglia with extension into left lateral ventricle. 2. Surrounding edema and mild midline shift to the right. Frederick Zaldivar MD Chest X-Ray 08/26/16 0000 Signed Impressions: Service Date/Time: Friday, August 26, 2016 14:37 - CONCLUSION: 1. Status post intubation with the endotracheal tube tip approximately 5 cm above the chela. 2. Midinspiratory study with crowding of the lung vasculature. Frederick Zaldivar MD Objective Remarks GENERAL: Middle-aged male, orotracheally intubated SKIN: Warm, dry. HEAD: Atraumatic. Normocephalic. Ventric. EYES:. No scleral icterus. No injection or drainage. ENT: No nasal bleeding or discharge. direct tracheally intubated. NECK: Trachea midline. No JVD. Trach clean, dry. CARDIOVASCULAR: Regular rate and rhythm. No m,r. No JVD. RESPIRATORY: Clear to auscultation. Breath sounds equal bilaterally. mechanically ventilated. Tolerates extended CPAP trial. GASTROINTESTINAL: Abdomen soft, non-tender, nondistended. no guarding. BS active. MUSCULOSKELETAL: Extremities without difficulty peripheral edema. No obvious deformities. Warm, well perfused. NEUROLOGICAL: Flaccid right upper extremity, appears to localize with left upper extremity and slightly withdraws lower extremities to pain. Purposeful with left arm? A/P Assessment and Plan Assessment: middle-aged male with large left basal ganglia ICH. His ICH score is 2, giving him an estimated 37% 30-day mortality. MRI, however, is positive for a number of other small hemorrhages which neurosurgery think may be related to possible amyloid angiopathy, and likely his prognosis is much poorer than initially estimated. His course is complicated by acute hypoxic and hypercarbic respiratory failure. Neuro/Psych: Left basal ganglia intraparenchymal hemorrhage s/p Right frontal ventriculostomy placement 08/[address] head revealed left basal ganglia intraparenchymal hemorrhage 3.42 cm with extension to lateral ventricle, midline shift 5 mm to the right. Neurosurgery/Dr. Croft. Right frontal twist drill hole ventriculostomy. Neuro checks q1h Goal systolic blood pressure less than 140 continue to keep Na 145-150 Keppra 500 IV every 12 hours each prophylaxis 7 days ICP currently well controlled -- EEG 08/30: generalized slowing, no seizure activity. CV: Hypertensive emergency Currently off Cardene drip continue amlodipine 10mg po daily continue labetalol 400mg po q8h continue hydralazine 50mg po q8hr. goal SBP < 140. Hydralazine 100 tid, lisinopril 20 po bid, lopressor 100 bid. catapres 0.1 bid. Stop labetalol. Resp: Acute hypoxic and hypercarbic respiratory failure PRVC Ventilator bundle As needed bronchodilator therapy Spontaneous breathing trials when clinically indicated, and cleared by neurosurgery, does not meet criteria today. wean fio2 for goal spo2 > 90%. HOB at 30 degrees. CPAP extended trials -> flow by GI: Acute Protein Calorie Malnutrition-mild Constipation Tube feeds with Jevity, having BM Protonix for GI prophylaxis Colace/as needed Senokot for bowel regimen. goal daily bowel movements. : Izaguirre for accurate I/Os. Endo: Hyperglycemia of Critical Illness Sliding-scale insulin with Accu-Cheks every 4 hours to maintain euglycemia. Low regimen Renal: Intravascular hypervolemia Monitor renal function closely Resolved Heme: daily CBC. ID: Monitor for infection FEN: Hypokalemia Replace per ICU electrolyte protocol. MSK: PT evaluate and treat Access - izaguirre Prophylaxis - GI - Protonix - DVT - SCDs/pharmacological prophylaxis contraindicated with intracranial hemorrhage Overall impression: Severe brain bleed with poor recovery of neurological function. Tracheostomy placed. BP meds increased again today. Placement in 2-3 days hopefully. Jonny Samuels MD Sep 07, 2016 17:38
[2016-09-07] MEDS: BENEPROTEIN POWDER 1 PACK G-TUBE SCH (18:00)
[2016-09-07] MEDS: cloNIDine HCL 0.1 MG TAB PO SCH (20:09)
[2016-09-08] VITALS (17 sets, daily range): BP systolic 151–161; BP diastolic 71–85; PULSE 85–104; RESP 16–19; TEMP 100.3–103; O2SAT 97–100
[2016-09-08] MEDS: ACETAMINOPHEN 325 MG TAB PO PRN ×4 (00:57→17:47)
[2016-09-08] MEDS: CHLORHEXIDINE GLUCONATE 2 % 1 PACK (2 CLOTHS) TOP SCH (01:07)
[2016-09-08] MEDS: INSULIN NovoLIN REGULAR SUPPLEMENTAL SCALE SQ SCH ×5 (04:00→20:00)
[2016-09-08] MEDS ORDERED: EPINEPHrine HCL (1:10,000) 1 MG/10 ML SYRINGE ONE (04:31)
[2016-09-08] MEDS ORDERED: LIDOCAINE HCL 2% 100 MG/5 ML SYRINGE ONE (04:32)
[2016-09-08] MEDS ORDERED: ATROPINE SULFATE 1 MG/10 ML SYRINGE ONE (04:32)
[2016-09-08] MEDS: LABETALOL HCL 100 MG/20 ML VIAL IV PRN (04:37)
[2016-09-08 04:47] LABS: AUTOMATED NEUTROPHIL # 15.3 TH/MM3 (1.8-7.7); BASOPHIL # 0.1 TH/MM3 (0-0.2); BASOPHIL % 0.3 % (0.0-2.0); EOSINOPHIL # 0.4 TH/MM3 (0-0.4); EOSINOPHIL % 2.4 % (0.0-4.0); HEMATOCRIT 32.3 % (39.0-51.0); HEMO FLAGS DIFF FINAL; LYMPH % 6.5 % (9.0-44.0); LYMPHOCYTE # 1.2 TH/MM3 (1.0-4.8); MEAN CELL VOLUME 96.4 FL (80.0-100.0); MEAN CORPUSCULAR HEMOGLOBIN 32.1 PG (27.0-34.0); MEAN CORPUSCULAR HGB CONC 33.3 % (32.0-36.0); MONO % 7.5 % (0.0-8.0); NEUT % 83.3 % (16.0-70.0); PLATELET COUNT 257 TH/MM3 (150-450); RED BLOOD COUNT 3.35 MIL/MM3 (4.50-5.90); RED CELL DISTRIBUTION WIDTH 12.6 % (11.6-17.2); WHITE BLOOD COUNT 18.4 TH/MM3 (4.0-11.0)
[2016-09-08 05:16] LABS: BICARBONATE 28.7 MEQ/L (21.0-32.0); POTASSIUM 3.9 MEQ/L (3.5-5.1)
[2016-09-08] MEDS: hydrALAZINE HCL 100 MG TAB PO SCH ×3 (05:21→21:14)
--- NOTE | 2016-09-08 05:21 | RADRPT ---
EXAM DATE/TIME: 09/08/2016 04:42 [facility] COMPARISON: MRI BRAIN W/O CONTRAST, August 27, 2016, 16:49. CT BRAIN W/O CONTRAST, August 26, 2016, 15:41. INDICATIONS : Follow up bleed. RADIATION DOSE: 56.35 CTDIvol (mGy) MEDICAL HISTORY : Non-responsive. SURGICAL HISTORY : Non-responsive. ENCOUNTER: Subsequent ACUITY: 2 weeks PAIN SCALE: Non-responsive LOCATION: cranial TECHNIQUE: Multiple contiguous axial images were obtained of the head. Using automated exposure control and adj ustment of the mA and/or kV according to patient size, radiation dose was kept as low as reasonably a chievable to obtain optimal diagnostic quality images. FINDINGS: CEREBRUM: There continues to be a 3.6 cm hemorrhage in the left basal ganglia there is extension into the ventr icular system is seen again. There is surrounding mass effect. There is 5 mm of left to right midline shift. There is a ventriculostomy tube in place from the right frontal approach with tip in the righ t lateral ventricle. The basal cisterns are narrowed but still open. There is increased densities in the cerebral white matter. No extra-axial fluid collections are seen. POSTERIOR FOSSA: The cerebellum and brainstem are intact. The 4th ventricle is midline. The cerebellopontine angle i s unremarkable. EXTRACRANIAL: The visualized portion of the orbits is intact. SKULL: The calvaria is intact. No evidence of skull fracture. CONCLUSION: 1. 3.6 cm left basal ganglia hemorrhage with extension into the lateral ventricles. There is surround ing mass effect. These changes are stable compared to the prior exam. 2. Small vessel ischemic change in the white matter. Rakesh Ramirez MD on September 08, 2016 at 5:16 Board Certified Radiologist. This report was verified electronically.
[2016-09-08] MEDS: FREE WATER G-TUBE SCH ×5 (05:22→21:15)
--- NOTE | 2016-09-08 07:48 | HHI.CCPN ---
Subjective Remarks/Hospital Course This is a middle-aged male. Date of admission 08/26/2016. Past medical history is unknown. His real name is Rafy Ruiz. Haritha Ruiz [phone] is the health proxy. Per ED report, patient was acute onset 1 hour prior to admission of right upper and lower extremity weakness and dysarthria. Upon presentation to the ED, patient was quite hypertensive and had decreased responsiveness. Patient was intubated by ED physician. [address] head revealed a left intraparenchymal hemorrhage/basal ganglia with extension to the lateral ventricle with a 5 mm shift to the right. Neurosurgery was consulted/Dr. Croft who placed Right frontal ventriculostomy. Laboratories reveal potassium 2.8. Currently on Cardene drip at 15 mg an hour. SUBJ: Remains intubated, on fentanyl. Propofol on hold. On Cardene infusion at 1mg per hour. Ventric with 87 ml blood-tinged CSF since placement. ICP well controlled,. Patient's [id number] is at the bedside, is in [place] 08/28: continues to have poor neurologic exam. on Cardene at 5mg/hr this AM. EVD with blood-tinged CSF, patent. ICP controlled. not yet on sedation hold this AM to my exam. 08/29: no change in neuro exam. cardene persists for blood pressure control. 08/30: encephalopathy persists. still on cardene at 5mg/hr for blood pressure. 08/31: hypernatremia persists. poor neuro exam still. unable to tolerate sedation holiday due to hypertension. labetalol increased yesterday with only mild improvements. did not diurese well with lasix 20 yesterday. 09/01: Remains off sedation since yesterday. Appears to localize with left upper extremity. Blood pressure control improved. Urine output excellent 3.9 L in 24 hours, EVD with 192 mL output in 24 hours 09/02: No improvement in neurological function. 09/03: No change in neuro status. Still waiting for photo ID. 09/04: No change. Plan trach today to facilitate long-tern vent weaning. 09/05: Hypertensive. Will increase lisinopril and add lopressor. 09/06: Transitioning to oral hypertension meds. Trach site dry clean. 09/07: BP control acceptable but needs fine tuning. Diuresis has been adequate - hold for now. Tolerates up to 2 hours CPAP - now a long-term weaning problem. 09/08: BP control acceptable. Trying to convert to oral meds only. Objective Vital Signs Date Time Temp Pulse Resp B/P Pulse Ox O2 Delivery O2 Flow Rate FiO2 09/08/16 06:00 104 09/08/16 04:00 100.8 18 161/85 98 09/08/16 04:00 40 Intake and Output 09/07/16 09/07/16 09/08/16 08:00 16:00 00:00 Intake Total 862 ml 1123 ml 900 ml Output Total 438 ml 766 ml 503 ml Balance 424 ml 357 ml 397 ml Result Diagram: 09/08/16 0424 09/08/16 0424 Imaging Last Impressions Head CT 08/26/16 0000 Signed Impressions: Service Date/Time: Friday, August 26, 2016 15:41 - CONCLUSION: 1. Large intraparenchymal hemorrhage in the left basal ganglia with extension into left lateral ventricle. 2. Surrounding edema and mild midline shift to the right. Frederick Zaldivar MD Chest X-Ray 08/26/16 0000 Signed Impressions: Service Date/Time: Friday, August 26, 2016 14:37 - CONCLUSION: 1. Status post intubation with the endotracheal tube tip approximately 5 cm above the chela. 2. Midinspiratory study with crowding of the lung vasculature. Frederick Zaldivar MD Objective Remarks GENERAL: Middle-aged male, orotracheally intubated SKIN: Warm, dry. HEAD: Atraumatic. Normocephalic. Ventric. EYES:. No scleral icterus. No injection or drainage. ENT: No nasal bleeding or discharge. direct tracheally intubated. NECK: Trachea midline. No JVD. Trach clean, dry. CARDIOVASCULAR: Regular rate and rhythm. No m,r. No JVD. RESPIRATORY: Clear to auscultation. Breath sounds equal bilaterally. mechanically ventilated. Tolerates extended CPAP trial for 2 hours only. GASTROINTESTINAL: Abdomen soft, non-tender, nondistended. no guarding. BS active. MUSCULOSKELETAL: Extremities without difficulty peripheral edema. No obvious deformities. Warm, well perfused. NEUROLOGICAL: Flaccid right upper extremity, appears to localize with left upper extremity and slightly withdraws lower extremities to pain. Purposeful with left arm? A/P Assessment and Plan Assessment: middle-aged male with large left basal ganglia ICH. His ICH score is 2, giving him an estimated 37% 30-day mortality. MRI, however, is positive for a number of other small hemorrhages which neurosurgery think may be related to possible amyloid angiopathy, and likely his prognosis is much poorer than initially estimated. His course is complicated by acute hypoxic and hypercarbic respiratory failure. Neuro/Psych: Left basal ganglia intraparenchymal hemorrhage s/p Right frontal ventriculostomy placement 08/[address] head revealed left basal ganglia intraparenchymal hemorrhage 3.42 cm with extension to lateral ventricle, midline shift 5 mm to the right. Neurosurgery/Dr. Croft. Right frontal twist drill hole ventriculostomy. Neuro checks q1h Goal systolic blood pressure less than 140 continue to keep Na 145-150 Keppra 500 IV every 12 hours each prophylaxis 7 days ICP currently well controlled -- EEG 08/30: generalized slowing, no seizure activity. CV: Hypertensive emergency Currently off Cardene drip continue amlodipine 10mg po daily continue labetalol 400mg po q8h continue hydralazine 50mg po q8hr. goal SBP < 140. Hydralazine 100 tid, lisinopril 20 po bid, lopressor 100 bid. catapres 0.1 bid. Stop labetalol. Resp: Acute hypoxic and hypercarbic respiratory failure PRVC Ventilator bundle As needed bronchodilator therapy Spontaneous breathing trials when clinically indicated, and cleared by neurosurgery, does not meet criteria today. wean fio2 for goal spo2 > 90%. HOB at 30 degrees. CPAP extended trials -> flow by GI: Acute Protein Calorie Malnutrition-mild Constipation Tube feeds with Jevity, having BM Protonix for GI prophylaxis Colace/as needed Senokot for bowel regimen. goal daily bowel movements. : Izaguirre for accurate I/Os. Endo: Hyperglycemia of Critical Illness Sliding-scale insulin with Accu-Cheks every 4 hours to maintain euglycemia. Low regimen Renal: Intravascular hypervolemia Monitor renal function closely Resolved Heme: daily CBC. ID: Monitor for infection FEN: Hypokalemia Replace per ICU electrolyte protocol. MSK: PT evaluate and treat Access - izaguirre Prophylaxis - GI - Protonix - DVT - SCDs/pharmacological prophylaxis contraindicated with intracranial hemorrhage Overall impression: Severe brain bleed with poor recovery of neurological function. Tracheostomy placed. BP meds adjusted. He's a little dry but urine output is acceptable. Diuretics stopped. Placement in 2-3 days hopefully. Jonny Samuels MD Sep 08, 2016 07:48
[2016-09-08] MEDS: SODIUM CHLORIDE 0.9% FLUSH 5 ML FLUSH IV FLUSH SCH ×2 (08:00→21:15)
[2016-09-08] MEDS: ARTIFICIAL TEARS OPTH SOLN 15 ML BTL EACH EYE SCH ×3 (08:00→17:12)
[2016-09-08] MEDS: SODIUM CHLORIDE 0.9% FLUSH 5 ML FLUSH IVF SCH (08:00)
[2016-09-08] MEDS: CHLORHEXIDINE 0.12% (ORAL KIT) 15 ML CUP MT SCH ×2 (08:00→21:15)
[2016-09-08] MEDS: DOCUSATE SODIUM 100 MG CAP PO SCH ×2 (08:00→21:14)
[2016-09-08] MEDS: PANTOPRAZOLE SODIUM 40 MG VIAL IV SCH (08:00)
[2016-09-08] MEDS: POLYETHYLENE GLYCOL 17 GM PKG PO SCH ×2 (08:01→21:15)
[2016-09-08] MEDS: METOPROLOL TARTRATE 50 MG TAB PO SCH ×2 (08:01→21:14)
[2016-09-08] MEDS: BENEPROTEIN POWDER 1 PACK G-TUBE SCH ×3 (09:00→17:12)
[2016-09-08] MEDS: JUVEN POWDER 1 PACK G-TUBE SCH ×2 (09:00→21:00)
[2016-09-08] MEDS: LACTULOSE SYRUP 20 GM/30 ML CUP PO SCH ×2 (09:00→21:00)
[2016-09-08] MEDS ORDERED: FUROSEMIDE 20 MG/2 ML VIAL IV PUSH SCH (09:00)
[2016-09-08] MEDS: BISACODYL 10 MG SUPP RECTAL SCH (09:00)
--- NOTE | 2016-09-08 09:17 | HHI.NSPN ---
(Sergey Melton) History Chief Complaint: Left basal ganglia hemorrhage (Sergey Melton) Interval History This is a middle-aged gentleman who apparently was brought to [facility] Emergency Room with acute onset of right-sided weakness and slurred speech. He was hypertensive on presentation and had a declining neurologic examination requiring intubation for airway control with ventilator support. CT scan of the head obtained reveals a basal ganglia hemorrhage on the left side measuring about 3.4 cm in diameter. There is also extension of the hemorrhage into the left lateral ventricle. No hydrocephalus is noted, although left temporal horn is dilated. Currently there is no friends or family members here to relate a history and his identity is unknown. 08/27/16: Pt sedated on Diprivan. Not opening eyes. Not following commands. Pupils 2mm bilaterally slight reaction bilaterally. 08/28/16: Pt sedated on Diprivan. Not opening eyes. Pupils 2mm bilaterally slight brisk reaction. Not following commands. 08/29/16: Pt sedated with Diprivan and Fentanyl drips. Not opening eyes. Pupils 2mm bilaterally slight brisk reaction. Not following commands. 09/01/16: Pt off sedation. Not opening eyes. Pupils 3mm bilaterally reactive. Not following commands. Ventriculostomy in place. ICP 18 after stimulation. 09/02/16: Pt off sedation. Not opening eyes to pain. Pupils 3mm bilaterally reactive bilaterally. Not following commands. ICP 11 with ventriculostomy drain at [id number]. 09/03/16: Pt off sedative drips. Not opening eyes. Ventriculostomy drain clamped, reportedly had to be opened multiple times last night. Currently tolerating clamping since 730am. 09/04/16: Pt not opening eyes. Pupils 4mm bilaterally reactive bilaterally. Not following commands. Withdraws UEs to pain. Localizes with LUE to pain in upper chest. 09/05/16: Pt not opening eyes. Pupils 4mm bilaterally reactive bilaterally. Not following commands. Spontaneously moves LUE. Localizes to pain with LUE. Right hemiparesis but withdraws to pain. 09/06/16: Pt not opening eyes. Off sedation. Pupils 4mm bilaterally reactive bilaterally. Not following commands. spontaneously moves LUE. Localizes to pain with LUE. Right hemiparesis. 09/07/16: Pt not opening eyes. No sedation. Pupils 4mm bilaterally, reactive bilaterally. Not following commands. right hemiparesis. Spontaneous movement in LUE and localizes to pain with LUE. 09/08/16: Pt not opening eyes. Pupils 4mm bilaterally. Ventriculostomy had been clamped several times last night but has to be reopened for elevated ICPs. Currently Ventriculostomy at [id number] ICP 19-20. (Sergey Melton) Review of Systems General: Negative for: fever, chills, insomnia Respiratory: Negative for: shortness of breath, cough, sputum Cardiovascular: Negative for: chest pain Gastrointestinal: Negative for: nausea, vomitting, diarrhea, constipation ( Sergey Melton) Exam Results Vital Signs Date Time Temp Pulse Resp B/P Pulse Ox O2 Delivery O2 Flow Rate FiO2 09/08/16 07:47 97 40 09/08/16 07:30 18 09/08/16 06:00 104 09/08/16 04:00 100.8 161/85 Intake and Output 09/07/16 09/07/16 09/08/16 08:00 16:00 00:00 Intake Total 862 ml 1123 ml 900 ml Output Total 438 ml 766 ml 503 ml Balance 424 ml 357 ml 397 ml (Sergey Melton) Physical Examination Heart: NSR. No murmurs. Resp: CTA bilaterally. Trach in place. FiO2 40%. PEEP 5 Pressure controlled rate 14. Abd: Soft positive bs. Skin: No cyanosis or erythema. SCDs in place. Muscle: Not following for muscle testing. Withdraws all 4 extremities to pain , right hemiparesis. Localizes with LUE to pain in upper chest. Some spontaneous movement with LUE. Neuro: Pt off sedative drips. Pt not opening eyes. Pupils 4mm bilaterally, reactive bilaterally. Not following commands. Ventriculostomy in place at 27 cmH2O. ICP 19-20. When clamped ICPs reach 30 and needs to be reopened. ( Sergey Melton) Lab, Micro, Other Results Laboratory Tests Test 09/07/16 09/08/16 19:07 04:24 Potassium Level 3.6 MEQ/L 3.9 MEQ/L White Blood Count 18.4 TH/MM3 Red Blood Count 3.35 MIL/MM3 Hemoglobin 10.8 GM/DL Hematocrit 32.3 % Mean Corpuscular Volume 96.4 FL Mean Corpuscular Hemoglobin 32.1 PG Mean Corpuscular Hemoglobin 33.3 % Concent Red Cell Distribution Width 12.6 % Platelet Count 257 TH/MM3 Mean Platelet Volume 11.3 FL Neutrophils (%) (Auto) 83.3 % Lymphocytes (%) (Auto) 6.5 % Monocytes (%) (Auto) 7.5 % Eosinophils (%) (Auto) 2.4 % Basophils (%) (Auto) 0.3 % Neutrophils # (Auto) 15.3 TH/MM3 Lymphocytes # (Auto) 1.2 TH/MM3 Monocytes # (Auto) 1.4 TH/MM3 Eosinophils # (Auto) 0.4 TH/MM3 Basophils # (Auto) 0.1 TH/MM3 CBC Comment DIFF FINAL Differential Comment Sodium Level 150 MEQ/L Chloride Level 114 MEQ/L Carbon Dioxide Level 28.7 MEQ/L Anion Gap 7 MEQ/L Blood Urea Nitrogen 36 MG/DL Creatinine 0.89 MG/DL Estimat Glomerular Filtration 87 ML/MIN Rate Random Glucose 146 MG/DL Calcium Level 9.2 MG/DL 09/07/16 09/07/16 09/08/16 15:00 23:00 07:00 Intake Total 1123 ml 900 ml 975 ml Output Total 766 ml 503 ml 430 ml Balance 357 ml 397 ml 545 ml Intake IV Total 160 ml 175 ml 175 ml Tube Feeding 363 ml 425 ml 300 ml Other 600 ml 300 ml 500 ml Output Urine Total 750 ml 475 ml 400 ml Drainage Total 16 ml 28 ml 30 ml # Bowel Movements 0 0 0 (Sergey Melton) Medical Decision Making Impression and Plan A: 61 y/o M with Left basal ganglia hemorrhage with intraventricular extension with mild hydrocephalus. This is a characteristic of a hypertensive bleed. 2. Unregulated hypertension. 3. Respiratory failure secondary to the intracranial hemorrhage. 4. Fevers PLAN Continue with ventriculostomy drain being challenged. Continue with blood pressure control Continue with critical care- intubation. sputum, urine, blood and Chest x-ray being obtained. We will also send a CSF sample. (Sergey Melton) Attending Statement The exam, history, and the medical decision-making described in the above note were completed with the assistance of the mid-level provider. I reviewed and agree with the findings presented. I attest that I had a [id number] encounter with the patient on the same day, and personally performed and documented my assessment and findings in the medical record. Not tolerating ventriculostomy clamping well. Follow-up CT scan of the head stable. We'll continue with the ventricular drainage until blood-tinged CSF clears further. ( Jeff Croft MD) Sergey Melton Sep 08, 2016 09:17 Jeff Croft MD Sep 08, 2016 16:30
--- NOTE | 2016-09-08 09:27 | RADRPT ---
EXAM DATE/TIME: 09/08/2016 09:14 [facility] COMPARISON: CHEST SINGLE AP, September 04, 2016, 10:50. INDICATIONS : Evaluate for pulmonary disease. MEDICAL HISTORY : None. SURGICAL HISTORY : None. ENCOUNTER: Subsequent ACUITY: 1 week PAIN SCORE: Non-responsive. LOCATION: Bilateral chest FINDINGS: Tracheostomy remains in place with a nasogastric tube through the midline into the stomach. Right marianela g is clear. This has improved. There is persistent opacity in the left base representing infiltrate o r atelectasis. CONCLUSION: Clearing of right basilar opacity. Persistent opacity infiltrate or atelectasis in the left base Sergio Moody MD on September 08, 2016 at 9:24 Board Certified Radiologist. This report was verified electronically.
[2016-09-08] MEDS: LISINOPRIL 20 MG TAB PO SCH ×2 (10:07→21:14)
[2016-09-08] MEDS: cloNIDine HCL 0.1 MG TAB PO SCH ×2 (10:07→21:14)
[2016-09-08] MEDS: hydrALAZINE HCL 20 MG/ML VIAL IV PUSH PRN (10:15)
[2016-09-08] MEDS ORDERED: Vancomycin Consult Pharmacy 1 EA OTHER SCH (12:15)
[2016-09-08] MEDS: CEFEPIME INJ 2,000 MG in SODIUM CHLORIDE 0.9% INJ 100 ML IV SCH (12:46)
[2016-09-08] MEDS: VANCOMYCIN 1,000 MG/NS 250 ML IV SCH ×2 (14:19)
[2016-09-09] VITALS (15 sets, daily range): BP systolic 107–163; BP diastolic 62–78; PULSE 9–103; RESP 17–28; TEMP 99.6–103.2; O2SAT 9–100
[2016-09-09] MEDS: CEFEPIME INJ 2,000 MG in SODIUM CHLORIDE 0.9% INJ 100 ML IV SCH ×2 (00:04→12:43)
[2016-09-09] MEDS: ACETAMINOPHEN 325 MG TAB PO PRN ×3 (00:05→15:48)
[2016-09-09] MEDS: VANCOMYCIN 1,000 MG/NS 250 ML IV SCH ×4 (00:05→12:44)
[2016-09-09] MEDS: FREE WATER G-TUBE SCH ×6 (04:00→21:42)
[2016-09-09] MEDS: CHLORHEXIDINE GLUCONATE 2 % 1 PACK (2 CLOTHS) TOP SCH (04:00)
[2016-09-09] MEDS: INSULIN NovoLIN REGULAR SUPPLEMENTAL SCALE SQ SCH ×6 (04:00→20:00)
[2016-09-09] MEDS: hydrALAZINE HCL 100 MG TAB PO SCH ×3 (05:34→21:41)
[2016-09-09] MEDS: CHLORHEXIDINE 0.12% (ORAL KIT) 15 ML CUP MT SCH ×2 (08:00→21:42)
[2016-09-09] MEDS: BENEPROTEIN POWDER 1 PACK G-TUBE SCH ×3 (09:00→16:06)
[2016-09-09] MEDS: DOCUSATE SODIUM 100 MG CAP PO SCH ×2 (09:00→21:41)
[2016-09-09] MEDS: JUVEN POWDER 1 PACK G-TUBE SCH ×2 (09:00→21:00)
[2016-09-09] MEDS: BISACODYL 10 MG SUPP RECTAL SCH (09:00)
[2016-09-09] MEDS: POLYETHYLENE GLYCOL 17 GM PKG PO SCH ×2 (09:00→21:00)
[2016-09-09] MEDS: LACTULOSE SYRUP 20 GM/30 ML CUP PO SCH ×2 (09:00→21:00)
[2016-09-09] MEDS: cloNIDine HCL 0.1 MG TAB PO SCH ×2 (09:25→21:41)
[2016-09-09] MEDS: SODIUM CHLORIDE 0.9% FLUSH 5 ML FLUSH IVF SCH (09:25)
[2016-09-09] MEDS: SODIUM CHLORIDE 0.9% FLUSH 5 ML FLUSH IV FLUSH SCH ×2 (09:25→21:42)
[2016-09-09] MEDS: METOPROLOL TARTRATE 50 MG TAB PO SCH ×2 (09:26→21:41)
[2016-09-09] MEDS: LISINOPRIL 20 MG TAB PO SCH ×2 (09:26→21:44)
[2016-09-09] MEDS: ARTIFICIAL TEARS OPTH SOLN 15 ML BTL EACH EYE SCH ×3 (09:27→15:47)
[2016-09-09] MEDS: PANTOPRAZOLE SODIUM 40 MG VIAL IV SCH (09:27)
--- NOTE | 2016-09-09 09:51 | HHI.CCPN ---
Subjective Remarks/Hospital Course This is a middle-aged male. Date of admission 08/26/2016. Past medical history is unknown. His real name is Rafy Ruiz. Haritha Ruiz [phone] is the health proxy. Per ED report, patient was acute onset 1 hour prior to admission of right upper and lower extremity weakness and dysarthria. Upon presentation to the ED, patient was quite hypertensive and had decreased responsiveness. Patient was intubated by ED physician. [address] head revealed a left intraparenchymal hemorrhage/basal ganglia with extension to the lateral ventricle with a 5 mm shift to the right. Neurosurgery was consulted/Dr. Croft who placed Right frontal ventriculostomy. Laboratories reveal potassium 2.8. Currently on Cardene drip at 15 mg an hour. SUBJ: Remains intubated, on fentanyl. Propofol on hold. On Cardene infusion at 1mg per hour. Ventric with 87 ml blood-tinged CSF since placement. ICP well controlled,. Patient's [id number] is at the bedside, is in [place] 08/28: continues to have poor neurologic exam. on Cardene at 5mg/hr this AM. EVD with blood-tinged CSF, patent. ICP controlled. not yet on sedation hold this AM to my exam. 08/29: no change in neuro exam. cardene persists for blood pressure control. 08/30: encephalopathy persists. still on cardene at 5mg/hr for blood pressure. 08/31: hypernatremia persists. poor neuro exam still. unable to tolerate sedation holiday due to hypertension. labetalol increased yesterday with only mild improvements. did not diurese well with lasix 20 yesterday. 09/01: Remains off sedation since yesterday. Appears to localize with left upper extremity. Blood pressure control improved. Urine output excellent 3.9 L in 24 hours, EVD with 192 mL output in 24 hours 09/02: No improvement in neurological function. 09/03: No change in neuro status. Still waiting for photo ID. 09/04: No change. Plan trach today to facilitate long-tern vent weaning. 09/05: Hypertensive. Will increase lisinopril and add lopressor. 09/06: Transitioning to oral hypertension meds. Trach site dry clean. 09/07: BP control acceptable but needs fine tuning. Diuresis has been adequate - hold for now. Tolerates up to 2 hours CPAP - now a long-term weaning problem. 09/08: BP control acceptable. Trying to convert to oral meds only. 09/09: BP control better. Fever, leukocytosis worrisome. Objective Vital Signs Date Time Temp Pulse Resp B/P Pulse Ox O2 Delivery O2 Flow Rate FiO2 09/09/16 07:42 99 40 09/09/16 06:00 89 09/09/16 04:00 99.6 18 150/75 Intake and Output 09/08/16 09/08/16 09/09/16 08:00 16:00 00:00 Intake Total 975 ml 1247 ml 783 ml Output Total 430 ml 812 ml 717 ml Balance 545 ml 435 ml 66 ml Result Diagram: 09/08/16 0424 09/09/16 0311 Imaging Last Impressions Head CT 08/26/16 0000 Signed Impressions: Service Date/Time: Friday, August 26, 2016 15:41 - CONCLUSION: 1. Large intraparenchymal hemorrhage in the left basal ganglia with extension into left lateral ventricle. 2. Surrounding edema and mild midline shift to the right. Frederick Zaldivar MD Chest X-Ray 08/26/16 0000 Signed Impressions: Service Date/Time: Friday, August 26, 2016 14:37 - CONCLUSION: 1. Status post intubation with the endotracheal tube tip approximately 5 cm above the chela. 2. Midinspiratory study with crowding of the lung vasculature. Frederick Zaldivar MD Objective Remarks GENERAL: Middle-aged male, orotracheally intubated SKIN: Warm, dry. HEAD: Atraumatic. Normocephalic. Ventric draining. EYES:. No conjunctival icterus. No injection or drainage. ENT: No nasal bleeding or discharge. direct tracheally intubated. NECK: Trachea midline. Trach with mild erythema, dry. CARDIOVASCULAR: Regular rate and rhythm. No m,r. No JVD. RESPIRATORY: Clear to auscultation. Breath sounds equal bilaterally. mechanically ventilated. Tolerates extended CPAP trial for 2 hours only. GASTROINTESTINAL: Abdomen soft, non-tender, nondistended. no guarding. BS active. MUSCULOSKELETAL: Extremities without difficulty peripheral edema. No obvious deformities. Warm, well perfused. NEUROLOGICAL: Flaccid right upper extremity, appears to localize with left upper extremity and slightly withdraws lower extremities to pain. Purposeful with left arm? A/P Assessment and Plan Assessment: middle-aged male with large left basal ganglia ICH. His ICH score is 2, giving him an estimated 37% 30-day mortality. MRI, however, is positive for a number of other small hemorrhages which neurosurgery think may be related to possible amyloid angiopathy, and likely his prognosis is much poorer than initially estimated. His course is complicated by acute hypoxic and hypercarbic respiratory failure. Neuro/Psych: Left basal ganglia intraparenchymal hemorrhage s/p Right frontal ventriculostomy placement 08/[address] head revealed left basal ganglia intraparenchymal hemorrhage 3.42 cm with extension to lateral ventricle, midline shift 5 mm to the right. Neurosurgery/Dr. Croft. Right frontal twist drill hole ventriculostomy. Neuro checks q1h Goal systolic blood pressure less than 140 continue to keep Na 145-150 Keppra 500 IV every 12 hours each prophylaxis 7 days ICP currently well controlled -- EEG 08/30: generalized slowing, no seizure activity. CV: Hypertensive emergency Currently off Cardene drip continue amlodipine 10mg po daily continue labetalol 400mg po q8h continue hydralazine 50mg po q8hr. goal SBP < 140. Hydralazine 100 tid, lisinopril 20 po bid, lopressor 100 bid. catapres 0.1 bid. Stop labetalol. Resp: Acute hypoxic and hypercarbic respiratory failure PRVC Ventilator bundle As needed bronchodilator therapy Spontaneous breathing trials when clinically indicated, and cleared by neurosurgery, does not meet criteria today. wean fio2 for goal spo2 > 90%. HOB at 30 degrees. CPAP extended trials -> flow by GI: Acute Protein Calorie Malnutrition-mild Constipation Tube feeds with Jevity, having BM Protonix for GI prophylaxis Colace/as needed Senokot for bowel regimen. goal daily bowel movements. : Izaguirre for accurate I/Os. Endo: Hyperglycemia of Critical Illness Sliding-scale insulin with Accu-Cheks every 4 hours to maintain euglycemia. Low regimen Renal: Intravascular hypervolemia Monitor renal function closely Resolved Heme: daily CBC. ID: Monitor for infection FEN: Hypokalemia Replace per ICU electrolyte protocol. MSK: PT evaluate and treat Access - izaguirre Prophylaxis - GI - Protonix - DVT - SCDs/pharmacological prophylaxis contraindicated with intracranial hemorrhage Overall impression: Severe brain bleed with poor recovery of neurological function. Tracheostomy placed. BP meds adjusted. He's a little dry but urine output is acceptable. Diuretics stopped. New fever worrisome, cultures pending. Jonny Samuels MD Sep 09, 2016 09:51
--- NOTE | 2016-09-09 11:55 | HHI.NSPN ---
(Sergey Melton) History Chief Complaint: Left basal ganglia hemorrhage (Sergey Melton) Interval History This is a middle-aged gentleman who apparently was brought to [facility] Emergency Room with acute onset of right-sided weakness and slurred speech. He was hypertensive on presentation and had a declining neurologic examination requiring intubation for airway control with ventilator support. CT scan of the head obtained reveals a basal ganglia hemorrhage on the left side measuring about 3.4 cm in diameter. There is also extension of the hemorrhage into the left lateral ventricle. No hydrocephalus is noted, although left temporal horn is dilated. Currently there is no friends or family members here to relate a history and his identity is unknown. 08/27/16: Pt sedated on Diprivan. Not opening eyes. Not following commands. Pupils 2mm bilaterally slight reaction bilaterally. 08/28/16: Pt sedated on Diprivan. Not opening eyes. Pupils 2mm bilaterally slight brisk reaction. Not following commands. 08/29/16: Pt sedated with Diprivan and Fentanyl drips. Not opening eyes. Pupils 2mm bilaterally slight brisk reaction. Not following commands. 09/01/16: Pt off sedation. Not opening eyes. Pupils 3mm bilaterally reactive. Not following commands. Ventriculostomy in place. ICP 18 after stimulation. 09/02/16: Pt off sedation. Not opening eyes to pain. Pupils 3mm bilaterally reactive bilaterally. Not following commands. ICP 11 with ventriculostomy drain at [id number]. 09/03/16: Pt off sedative drips. Not opening eyes. Ventriculostomy drain clamped, reportedly had to be opened multiple times last night. Currently tolerating clamping since 730am. 09/04/16: Pt not opening eyes. Pupils 4mm bilaterally reactive bilaterally. Not following commands. Withdraws UEs to pain. Localizes with LUE to pain in upper chest. 09/05/16: Pt not opening eyes. Pupils 4mm bilaterally reactive bilaterally. Not following commands. Spontaneously moves LUE. Localizes to pain with LUE. Right hemiparesis but withdraws to pain. 09/06/16: Pt not opening eyes. Off sedation. Pupils 4mm bilaterally reactive bilaterally. Not following commands. spontaneously moves LUE. Localizes to pain with LUE. Right hemiparesis. 09/07/16: Pt not opening eyes. No sedation. Pupils 4mm bilaterally, reactive bilaterally. Not following commands. right hemiparesis. Spontaneous movement in LUE and localizes to pain with LUE. 09/08/16: Pt not opening eyes. Pupils 4mm bilaterally. Ventriculostomy had been clamped several times last night but has to be reopened for elevated ICPs. Currently Ventriculostomy at [id number] ICP 19-20. 09/09/16: Pt not opening eyes. Pupils 4mm bilaterally, reactive bilaterally. Ventriculostomy drain at [id number] with bloody CSF drainage. ICPs 9. (Sergey Melton) System Review Comments Not able to obtain given clinical condition. (Sergey Melton) Exam Results Vital Signs Date Time Temp Pulse Resp B/P Pulse Ox O2 Delivery O2 Flow Rate FiO2 09/09/16 07:42 99 40 09/09/16 06:00 89 09/09/16 04:00 99.6 18 150/75 Intake and Output 09/08/16 09/08/16 09/09/16 08:00 16:00 00:00 Intake Total 975 ml 1247 ml 783 ml Output Total 430 ml 812 ml 717 ml Balance 545 ml 435 ml 66 ml (Sergey Melton) Physical Examination Heart: NSR. No murmurs. Resp: CTA bilaterally. Trach in place. FiO2 40%. PEEP 5 Pressure controlled rate 14. Abd: Soft positive bs. Skin: No cyanosis or erythema. SCDs in place. Muscle: Not following for muscle testing. Withdraws all 4 extremities to pain , right hemiparesis. Localizes with LUE to pain in upper chest. Some spontaneous movement with LUE. Neuro: Pt off sedative drips. Pt not opening eyes. Pupils 4mm bilaterally, reactive bilaterally. Not following commands. Ventriculostomy in place at 20 cmH2O. ICP 9. (Sergey Melton) Lab, Micro, Other Results Laboratory Tests Test 09/09/16 03:11 Creatinine 0.87 MG/DL Estimat Glomerular Filtration 89 ML/MIN Rate 09/08/16 09/08/1617 15:00 23:00 07:00 Intake Total 1247 ml 783 ml 742 ml Output Total 812 ml 717 ml 385 ml Balance 435 ml 66 ml 357 ml Intake IV Total 247 ml 388 ml 422 ml Tube Feeding 400 ml 395 ml 320 ml Other 600 ml Output Urine Total 725 ml 650 ml 350 ml Drainage Total 87 ml 67 ml 35 ml # Bowel Movements 0 0 1 (Sergey Melton) Medical Decision Making Impression and Plan A: 61 y/o M with Left basal ganglia hemorrhage with intraventricular extension with mild hydrocephalus. This is a characteristic of a hypertensive bleed. 2. Unregulated hypertension. 3. Respiratory failure secondary to the intracranial hemorrhage. 4. Fevers 103.2 at midnight PLAN Continue with ventriculostomy drain Continue with blood pressure control Continue with critical care- intubation. Follow cultures (Sergey Melton) Attending Statement The exam, history, and the medical decision-making described in the above note were completed with the assistance of the mid-level provider. I reviewed and agree with the findings presented. I attest that I had a [id number] encounter with the patient on the same day, and personally performed and documented my assessment and findings in the medical record. (Jeff Croft MD) Sergey Melton Sep 09, 2016 11:55 Jeff Croft MD Sep 09, 2016 16:08
[2016-09-10] VITALS (14 sets, daily range): BP systolic 125–166; BP diastolic 71–86; PULSE 69–86; RESP 16–30; TEMP 98.6–100.1; O2SAT 98–100
[2016-09-10] MEDS ORDERED: PHARMACY ORDERED LAB XX ONE (00:45)
[2016-09-10] MEDS: CEFEPIME INJ 2,000 MG in SODIUM CHLORIDE 0.9% INJ 100 ML IV SCH (01:13)
[2016-09-10] MEDS: FREE WATER G-TUBE SCH ×6 (01:14→20:00)
[2016-09-10] MEDS: INSULIN NovoLIN REGULAR SUPPLEMENTAL SCALE SQ SCH ×6 (01:14→20:00)
[2016-09-10] MEDS: VANCOMYCIN 1,000 MG/NS 250 ML IV SCH ×2 (02:06)
[2016-09-10] MEDS: CHLORHEXIDINE GLUCONATE 2 % 1 PACK (2 CLOTHS) TOP SCH (04:00)
[2016-09-10 04:53] LABS: AUTOMATED NEUTROPHIL # 10.8 TH/MM3 (1.8-7.7); BASOPHIL # 0.1 TH/MM3 (0-0.2); BASOPHIL % 0.4 % (0.0-2.0); EOSINOPHIL # 0.4 TH/MM3 (0-0.4); HEMATOCRIT 27.9 % (39.0-51.0); HEMO FLAGS DIFF FINAL; LYMPH % 6.4 % (9.0-44.0); LYMPHOCYTE # 0.8 TH/MM3 (1.0-4.8); MEAN CELL VOLUME 95.5 FL (80.0-100.0); MEAN CORPUSCULAR HEMOGLOBIN 32.2 PG (27.0-34.0); MEAN CORPUSCULAR HGB CONC 33.7 % (32.0-36.0); MONO % 6.1 % (0.0-8.0); NEUT % 84.1 % (16.0-70.0); PLATELET COUNT 262 TH/MM3 (150-450); RED BLOOD COUNT 2.92 MIL/MM3 (4.50-5.90); RED CELL DISTRIBUTION WIDTH 12.4 % (11.6-17.2); WHITE BLOOD COUNT 12.9 TH/MM3 (4.0-11.0)
[2016-09-10 05:16] LABS: BICARBONATE 27.4 MEQ/L (21.0-32.0); POTASSIUM 3.5 MEQ/L (3.5-5.1)
[2016-09-10] MEDS: hydrALAZINE HCL 100 MG TAB PO SCH ×3 (06:24→22:16)
[2016-09-10] MEDS: cloNIDine HCL 0.1 MG TAB PO SCH (08:50)
[2016-09-10] MEDS: LISINOPRIL 20 MG TAB PO SCH ×2 (08:50→22:01)
[2016-09-10] MEDS: ACETAMINOPHEN 325 MG TAB PO PRN ×2 (08:50→22:02)
[2016-09-10] MEDS: ARTIFICIAL TEARS OPTH SOLN 15 ML BTL EACH EYE SCH ×3 (08:51→18:15)
[2016-09-10] MEDS: CHLORHEXIDINE 0.12% (ORAL KIT) 15 ML CUP MT SCH ×2 (08:51→20:00)
[2016-09-10] MEDS: JUVEN POWDER 1 PACK G-TUBE SCH ×2 (08:52→20:23)
[2016-09-10] MEDS: BENEPROTEIN POWDER 1 PACK G-TUBE SCH ×3 (08:52→18:15)
[2016-09-10] MEDS: SODIUM CHLORIDE 0.9% FLUSH 5 ML FLUSH IV FLUSH SCH ×2 (08:52→22:16)
[2016-09-10] MEDS: PANTOPRAZOLE SODIUM 40 MG VIAL IV SCH (08:52)
[2016-09-10] MEDS: DOCUSATE SODIUM 100 MG CAP PO SCH ×2 (08:53→20:23)
[2016-09-10] MEDS: SODIUM CHLORIDE 0.9% FLUSH 5 ML FLUSH IVF SCH (08:53)
[2016-09-10] MEDS: LACTULOSE SYRUP 20 GM/30 ML CUP PO SCH ×2 (08:53→20:23)
[2016-09-10] MEDS: BISACODYL 10 MG SUPP RECTAL SCH (08:54)
[2016-09-10] MEDS: METOPROLOL TARTRATE 50 MG TAB PO SCH ×2 (08:54→22:02)
[2016-09-10] MEDS: POLYETHYLENE GLYCOL 17 GM PKG PO SCH ×2 (08:54→20:23)
--- NOTE | 2016-09-10 09:33 | HHI.NSPN ---
(Sergey Melton) History Chief Complaint: Left basal ganglia hemorrhage (Sergey Melton) Interval History This is a middle-aged gentleman who apparently was brought to [facility] Emergency Room with acute onset of right-sided weakness and slurred speech. He was hypertensive on presentation and had a declining neurologic examination requiring intubation for airway control with ventilator support. CT scan of the head obtained reveals a basal ganglia hemorrhage on the left side measuring about 3.4 cm in diameter. There is also extension of the hemorrhage into the left lateral ventricle. No hydrocephalus is noted, although left temporal horn is dilated. Currently there is no friends or family members here to relate a history and his identity is unknown. 08/27/16: Pt sedated on Diprivan. Not opening eyes. Not following commands. Pupils 2mm bilaterally slight reaction bilaterally. 08/28/16: Pt sedated on Diprivan. Not opening eyes. Pupils 2mm bilaterally slight brisk reaction. Not following commands. 08/29/16: Pt sedated with Diprivan and Fentanyl drips. Not opening eyes. Pupils 2mm bilaterally slight brisk reaction. Not following commands. 09/01/16: Pt off sedation. Not opening eyes. Pupils 3mm bilaterally reactive. Not following commands. Ventriculostomy in place. ICP 18 after stimulation. 09/02/16: Pt off sedation. Not opening eyes to pain. Pupils 3mm bilaterally reactive bilaterally. Not following commands. ICP 11 with ventriculostomy drain at [id number]. 09/03/16: Pt off sedative drips. Not opening eyes. Ventriculostomy drain clamped, reportedly had to be opened multiple times last night. Currently tolerating clamping since 730am. 09/04/16: Pt not opening eyes. Pupils 4mm bilaterally reactive bilaterally. Not following commands. Withdraws UEs to pain. Localizes with LUE to pain in upper chest. 09/05/16: Pt not opening eyes. Pupils 4mm bilaterally reactive bilaterally. Not following commands. Spontaneously moves LUE. Localizes to pain with LUE. Right hemiparesis but withdraws to pain. 09/06/16: Pt not opening eyes. Off sedation. Pupils 4mm bilaterally reactive bilaterally. Not following commands. spontaneously moves LUE. Localizes to pain with LUE. Right hemiparesis. 09/07/16: Pt not opening eyes. No sedation. Pupils 4mm bilaterally, reactive bilaterally. Not following commands. right hemiparesis. Spontaneous movement in LUE and localizes to pain with LUE. 09/08/16: Pt not opening eyes. Pupils 4mm bilaterally. Ventriculostomy had been clamped several times last night but has to be reopened for elevated ICPs. Currently Ventriculostomy at [id number] ICP 19-20. 09/09/16: Pt not opening eyes. Pupils 4mm bilaterally, reactive bilaterally. Ventriculostomy drain at [id number] with bloody CSF drainage. ICPs 9. 09/10/16: Pt not opening eyes. Pupils 4mm bilaterally reactive bilaterally. Ventriculostomy drain at [id number] with bloody CSF drainage. ICP 14. (Sergey Melton) System Review Comments Not able to obtain given clinical condition. (Sergey Melton) Exam Results Vital Signs Date Time Temp Pulse Resp B/P Pulse Ox O2 Delivery O2 Flow Rate FiO2 09/10/16 08:12 98 40 09/10/16 04:00 99.8 86 16 148/79 Intake and Output 09/09/16 09/09/16 09/10/16 08:00 16:00 00:00 Intake Total 742 ml 1101 ml 1060 ml Output Total 385.0 ml 755 ml 642 ml Balance 357.0 ml 346 ml 418 ml (Sergey Melton) Physical Examination Heart: NSR. No murmurs. Resp: CTA bilaterally. Trach in place. CPAP. Abd: Soft positive bs. Skin: No cyanosis or erythema. SCDs in place. Muscle: Not following for muscle testing. Withdraws all 4 extremities to pain , right hemiparesis. Localizes with LUE to pain in upper chest. Some spontaneous movement with LUE. Neuro: Pt off sedative drips. Pt not opening eyes. Pupils 4mm bilaterally, reactive bilaterally. Not following commands. Ventriculostomy in place at 20 cmH2O. ICP 14. (Sergey Melton) Lab, Micro, Other Results Laboratory Tests Test 09/10/16 09/10/16 01:45 04:00 Vancomycin Level Trough 10.8 MCG/ML White Blood Count 12.9 TH/MM3 Red Blood Count 2.92 MIL/MM3 Hemoglobin 9.4 GM/DL Hematocrit 27.9 % Mean Corpuscular Volume 95.5 FL Mean Corpuscular Hemoglobin 32.2 PG Mean Corpuscular Hemoglobin 33.7 % Concent Red Cell Distribution Width 12.4 % Platelet Count 262 TH/MM3 Mean Platelet Volume 12.1 FL Neutrophils (%) (Auto) 84.1 % Lymphocytes (%) (Auto) 6.4 % Monocytes (%) (Auto) 6.1 % Eosinophils (%) (Auto) 3.0 % Basophils (%) (Auto) 0.4 % Neutrophils # (Auto) 10.8 TH/MM3 Lymphocytes # (Auto) 0.8 TH/MM3 Monocytes # (Auto) 0.8 TH/MM3 Eosinophils # (Auto) 0.4 TH/MM3 Basophils # (Auto) 0.1 TH/MM3 CBC Comment DIFF FINAL Differential Comment Sodium Level 145 MEQ/L Potassium Level 3.5 MEQ/L Chloride Level 110 MEQ/L Carbon Dioxide Level 27.4 MEQ/L Anion Gap 8 MEQ/L Blood Urea Nitrogen 24 MG/DL Creatinine 0.75 MG/DL Estimat Glomerular Filtration 106 ML/MIN Rate Random Glucose 159 MG/DL Calcium Level 8.7 MG/DL 09/09/16 09/09/16 09/10/16 15:00 23:00 07:00 Intake Total 1001 ml 1160 ml 1102 ml Output Total 755 ml 642 ml 534 ml Balance 246 ml 518 ml 568 ml Intake IV Total 340 ml 342 ml 463 ml Tube Feeding 431 ml 418 ml 339 ml Other 230 ml 400 ml 300 ml Output Urine Total 700 ml 600 ml 500 ml Tube Feeding Residual Discard 0 ml Drainage Total 55 ml 42 ml 34 ml # Bowel Movements 2 1 1 (Sergey Melton) Medical Decision Making Impression and Plan A: 61 y/o M with Left basal ganglia hemorrhage with intraventricular extension with mild hydrocephalus. This is a characteristic of a hypertensive bleed. 2. Unregulated hypertension. 3. Respiratory failure secondary to the intracranial hemorrhage. 4. Fevers PLAN Continue with ventriculostomy drain Continue with blood pressure control Continue with critical care- trach and vent. Follow cultures- urine gram - julia, sputum staph aureus. (Sergey Melton) Attending Statement The exam, history, and the medical decision-making described in the above note were completed with the assistance of the mid-level provider. I reviewed and agree with the findings presented. I attest that I had a [id number] encounter with the patient on the same day, and personally performed and documented my assessment and findings in the medical record. (Jeff Croft MD) Sergey Melton Sep 10, 2016 09:33 Jeff Croft MD Sep 10, 2016 17:08
--- NOTE | 2016-09-10 12:16 | HHI.CCPN ---
Subjective Remarks/Hospital Course This is a middle-aged male. Date of admission 08/26/2016. Past medical history is unknown. His real name is Rafy Ruiz. Haritha Ruiz [phone] is the health proxy. Per ED report, patient was acute onset 1 hour prior to admission of right upper and lower extremity weakness and dysarthria. Upon presentation to the ED, patient was quite hypertensive and had decreased responsiveness. Patient was intubated by ED physician. [address] head revealed a left intraparenchymal hemorrhage/basal ganglia with extension to the lateral ventricle with a 5 mm shift to the right. Neurosurgery was consulted/Dr. Croft who placed Right frontal ventriculostomy. Laboratories reveal potassium 2.8. Currently on Cardene drip at 15 mg an hour. SUBJ: Remains intubated, on fentanyl. Propofol on hold. On Cardene infusion at 1mg per hour. Ventric with 87 ml blood-tinged CSF since placement. ICP well controlled,. Patient's [id number] is at the bedside, is in [place] 08/28: continues to have poor neurologic exam. on Cardene at 5mg/hr this AM. EVD with blood-tinged CSF, patent. ICP controlled. not yet on sedation hold this AM to my exam. 08/29: no change in neuro exam. cardene persists for blood pressure control. 08/30: encephalopathy persists. still on cardene at 5mg/hr for blood pressure. 08/31: hypernatremia persists. poor neuro exam still. unable to tolerate sedation holiday due to hypertension. labetalol increased yesterday with only mild improvements. did not diurese well with lasix 20 yesterday. 09/01: Remains off sedation since yesterday. Appears to localize with left upper extremity. Blood pressure control improved. Urine output excellent 3.9 L in 24 hours, EVD with 192 mL output in 24 hours 09/02: No improvement in neurological function. 09/03: No change in neuro status. Still waiting for photo ID. 09/04: No change. Plan trach today to facilitate long-tern vent weaning. 09/05: Hypertensive. Will increase lisinopril and add lopressor. 09/06: Transitioning to oral hypertension meds. Trach site dry clean. 09/07: BP control acceptable but needs fine tuning. Diuresis has been adequate - hold for now. Tolerates up to 2 hours CPAP - now a long-term weaning problem. 09/08: BP control acceptable. Trying to convert to oral meds only. 09/09: BP control better. Fever, leukocytosis worrisome. 09/10: MSSA in sputum, GNR in urine. Start ceftriaxone, stop Vanc and Cefepime. D/C izaguirre. Objective Vital Signs Date Time Temp Pulse Resp B/P Pulse Ox O2 Delivery O2 Flow Rate FiO2 09/10/16 11:08 100 35 09/10/16 10:00 69 09/10/16 08:00 100.1 21 166/86 Intake and Output 09/09/16 09/09/16 09/10/16 08:00 16:00 00:00 Intake Total 742 ml 1101 ml 1060 ml Output Total 385.0 ml 755 ml 642 ml Balance 357.0 ml 346 ml 418 ml Result Diagram: 09/10/16 0400 09/10/16 0400 Other Results Microbiology Date/Time Procedure Status Source Growth 09/08/16 09:30 Gram Stain - Final Complete Cerebral Spinal Fluid Shunt Fluid 09/08/16 09:30 CSF Culture - Final Complete Cerebral Spinal Fluid Shunt Fluid No growth. 09/08/16 10:00 Gram Stain - Final Complete Sputum Endotracheal 09/08/16 10:00 Sputum Culture - Final Complete Staphylococcus Aureus 09/08/16 10:00 Urine Culture - Final Complete Urine Catheterized Urine Escherichia Coli Imaging Last Impressions Head CT 08/26/16 0000 Signed Impressions: Service Date/Time: Friday, August 26, 2016 15:41 - CONCLUSION: 1. Large intraparenchymal hemorrhage in the left basal ganglia with extension into left lateral ventricle. 2. Surrounding edema and mild midline shift to the right. Frederick Zaldivar MD Chest X-Ray 08/26/16 0000 Signed Impressions: Service Date/Time: Friday, August 26, 2016 14:37 - CONCLUSION: 1. Status post intubation with the endotracheal tube tip approximately 5 cm above the chela. 2. Midinspiratory study with crowding of the lung vasculature. Frederick Zaldivar MD Objective Remarks GENERAL: Middle-aged male, orotracheally intubated SKIN: Warm, dry. HEAD: Atraumatic. Normocephalic. Ventric draining. EYES:. No conjunctival icterus. No injection or drainage. ENT: No nasal bleeding or discharge. direct tracheally intubated. NECK: Trachea midline. Trach with mild erythema, dry. CARDIOVASCULAR: Regular rate and rhythm. No m,r. No JVD. RESPIRATORY: Clear to auscultation. Breath sounds equal bilaterally. mechanically ventilated. Tolerates extended CPAP trial for 2 hours only. GASTROINTESTINAL: Abdomen soft, non-tender, nondistended. no guarding. BS active. MUSCULOSKELETAL: Extremities without difficulty peripheral edema. No obvious deformities. Warm, well perfused. NEUROLOGICAL: Flaccid right upper extremity, appears to localize with left upper extremity and slightly withdraws lower extremities to pain. Purposeful with left arm? A/P Assessment and Plan Assessment: middle-aged male with large left basal ganglia ICH. His ICH score is 2, giving him an estimated 37% 30-day mortality. MRI, however, is positive for a number of other small hemorrhages which neurosurgery think may be related to possible amyloid angiopathy, and likely his prognosis is much poorer than initially estimated. His course is complicated by acute hypoxic and hypercarbic respiratory failure. Neuro/Psych: Left basal ganglia intraparenchymal hemorrhage s/p Right frontal ventriculostomy placement 08/[address] head revealed left basal ganglia intraparenchymal hemorrhage 3.42 cm with extension to lateral ventricle, midline shift 5 mm to the right. Neurosurgery/Dr. Croft. Right frontal twist drill hole ventriculostomy. Neuro checks q1h Goal systolic blood pressure less than 140 continue to keep Na 145-150 Keppra 500 IV every 12 hours each prophylaxis 7 days ICP currently well controlled -- EEG 08/30: generalized slowing, no seizure activity. CV: Hypertensive emergency Currently off Cardene drip continue amlodipine 10mg po daily continue labetalol 400mg po q8h continue hydralazine 50mg po q8hr. goal SBP < 140. Hydralazine 100 tid, lisinopril 20 po bid, lopressor 100 bid. catapres 0.1 bid. Stop labetalol. Resp: Acute hypoxic and hypercarbic respiratory failure PRVC Ventilator bundle As needed bronchodilator therapy Spontaneous breathing trials when clinically indicated, and cleared by neurosurgery, does not meet criteria today. wean fio2 for goal spo2 > 90%. HOB at 30 degrees. CPAP extended trials -> flow by GI: Acute Protein Calorie Malnutrition-mild Constipation Tube feeds with Jevity, having BM Protonix for GI prophylaxis Colace/as needed Senokot for bowel regimen. goal daily bowel movements. : Izaguirre for accurate I/Os. Endo: Hyperglycemia of Critical Illness Sliding-scale insulin with Accu-Cheks every 4 hours to maintain euglycemia. Low regimen Renal: Intravascular hypervolemia Monitor renal function closely Resolved Heme: daily CBC. ID: Monitor for infection FEN: Hypokalemia Replace per ICU electrolyte protocol. MSK: PT evaluate and treat Access - izaguirre Prophylaxis - GI - Protonix - DVT - SCDs/pharmacological prophylaxis contraindicated with intracranial hemorrhage Overall impression: Severe brain bleed with poor recovery of neurological function. Tracheostomy placed. BP meds adjusted. He's a little dry but urine output is acceptable. Diuretics stopped. New fever worrisome, cultures pending. Jonny Samuels MD Sep 10, 2016 12:16
[2016-09-10] MEDS: cefTRIAXone INJ 1,000 MG in SODIUM CHLORIDE 0.9% INJ 100 ML IV SCH (12:25)
[2016-09-10] MEDS ORDERED: VANCOMYCIN INJ 1,500 MG in SODIUM CHLORID 0.9% 500 ML INJ 500 ML IV SCH (13:00)
[2016-09-10] MEDS: cloNIDine HCL 0.2 MG TAB PO SCH (22:14)
[2016-09-11] VITALS (15 sets, daily range): BP systolic 132–169; BP diastolic 69–86; PULSE 63–78; RESP 14–27; TEMP 98.2–99.1; O2SAT 94–100
[2016-09-11] MEDS: CHLORHEXIDINE GLUCONATE 2 % 1 PACK (2 CLOTHS) TOP SCH (04:00)
[2016-09-11] MEDS: INSULIN NovoLIN REGULAR SUPPLEMENTAL SCALE SQ SCH ×6 (04:00→20:00)
[2016-09-11] MEDS: FREE WATER G-TUBE SCH ×5 (04:00→20:00)
[2016-09-11 04:42] LABS: AUTOMATED NEUTROPHIL # 6.9 TH/MM3 (1.8-7.7); BASOPHIL % 0.4 % (0.0-2.0); EOSINOPHIL # 0.5 TH/MM3 (0-0.4); EOSINOPHIL % 5.2 % (0.0-4.0); HEMATOCRIT 26.2 % (39.0-51.0); LYMPH % 10.9 % (9.0-44.0); MEAN CELL VOLUME 95.3 FL (80.0-100.0); MEAN CORPUSCULAR HEMOGLOBIN 32.6 PG (27.0-34.0); MEAN CORPUSCULAR HGB CONC 34.2 % (32.0-36.0); MONO % 8.7 % (0.0-8.0); NEUT % 74.8 % (16.0-70.0); PLATELET COUNT 292 TH/MM3 (150-450); RED BLOOD COUNT 2.75 MIL/MM3 (4.50-5.90); RED CELL DISTRIBUTION WIDTH 12.4 % (11.6-17.2); WHITE BLOOD COUNT 9.2 TH/MM3 (4.0-11.0)
[2016-09-11 04:46] LABS: HEMO FLAGS AUTO DIFF
[2016-09-11] MEDS: ACETAMINOPHEN 325 MG TAB PO PRN (05:38)
[2016-09-11] MEDS: hydrALAZINE HCL 100 MG TAB PO SCH ×3 (05:38→22:00)
[2016-09-11 05:57] LABS: PLATELET ESTIMATE SMEAR NORMAL (NORMAL); PLATELET MORPHOLOGY NORMAL (NORMAL); SCAN/DIFF AUTO DIFF CONFIRMED
[2016-09-11] MEDS: CHLORHEXIDINE 0.12% (ORAL KIT) 15 ML CUP MT SCH ×2 (08:00→20:00)
[2016-09-11] MEDS: DOCUSATE SODIUM 100 MG CAP PO SCH ×2 (09:00→21:00)
[2016-09-11] MEDS: JUVEN POWDER 1 PACK G-TUBE SCH ×2 (09:00→21:00)
[2016-09-11] MEDS: POLYETHYLENE GLYCOL 17 GM PKG PO SCH ×2 (09:00→21:00)
[2016-09-11] MEDS: LACTULOSE SYRUP 20 GM/30 ML CUP PO SCH ×2 (09:00→21:00)
[2016-09-11] MEDS: BISACODYL 10 MG SUPP RECTAL SCH (09:00)
--- NOTE | 2016-09-11 09:50 | HHI.NSPN ---
(Sergey Melton) History Chief Complaint: Left basal ganglia hemorrhage (Sergey Melton) Interval History This is a middle-aged gentleman who apparently was brought to [facility] Emergency Room with acute onset of right-sided weakness and slurred speech. He was hypertensive on presentation and had a declining neurologic examination requiring intubation for airway control with ventilator support. CT scan of the head obtained reveals a basal ganglia hemorrhage on the left side measuring about 3.4 cm in diameter. There is also extension of the hemorrhage into the left lateral ventricle. No hydrocephalus is noted, although left temporal horn is dilated. Currently there is no friends or family members here to relate a history and his identity is unknown. 08/27/16: Pt sedated on Diprivan. Not opening eyes. Not following commands. Pupils 2mm bilaterally slight reaction bilaterally. 08/28/16: Pt sedated on Diprivan. Not opening eyes. Pupils 2mm bilaterally slight brisk reaction. Not following commands. 08/29/16: Pt sedated with Diprivan and Fentanyl drips. Not opening eyes. Pupils 2mm bilaterally slight brisk reaction. Not following commands. 09/01/16: Pt off sedation. Not opening eyes. Pupils 3mm bilaterally reactive. Not following commands. Ventriculostomy in place. ICP 18 after stimulation. 09/02/16: Pt off sedation. Not opening eyes to pain. Pupils 3mm bilaterally reactive bilaterally. Not following commands. ICP 11 with ventriculostomy drain at [id number]. 09/03/16: Pt off sedative drips. Not opening eyes. Ventriculostomy drain clamped, reportedly had to be opened multiple times last night. Currently tolerating clamping since 730am. 09/04/16: Pt not opening eyes. Pupils 4mm bilaterally reactive bilaterally. Not following commands. Withdraws UEs to pain. Localizes with LUE to pain in upper chest. 09/05/16: Pt not opening eyes. Pupils 4mm bilaterally reactive bilaterally. Not following commands. Spontaneously moves LUE. Localizes to pain with LUE. Right hemiparesis but withdraws to pain. 09/06/16: Pt not opening eyes. Off sedation. Pupils 4mm bilaterally reactive bilaterally. Not following commands. spontaneously moves LUE. Localizes to pain with LUE. Right hemiparesis. 09/07/16: Pt not opening eyes. No sedation. Pupils 4mm bilaterally, reactive bilaterally. Not following commands. right hemiparesis. Spontaneous movement in LUE and localizes to pain with LUE. 09/08/16: Pt not opening eyes. Pupils 4mm bilaterally. Ventriculostomy had been clamped several times last night but has to be reopened for elevated ICPs. Currently Ventriculostomy at [id number] ICP 19-20. 09/09/16: Pt not opening eyes. Pupils 4mm bilaterally, reactive bilaterally. Ventriculostomy drain at [id number] with bloody CSF drainage. ICPs 9. 09/10/16: Pt not opening eyes. Pupils 4mm bilaterally reactive bilaterally. Ventriculostomy drain at 01kvH22 with bloody CSF drainage. ICP 14. 09/11/16: Pt not opening eyes. Pupils 2mm bilaterally reactive bilaterally. Ventriculostomy drain at [id number] with old bloody CSF drainage. ICP 13-14. ( Sergey Melton S. JAMES) System Review Comments Not able to obtain given level of alertness. (Sergey Melton SGlendy RAMIREZ) Exam Results Vital Signs Date Time Temp Pulse Resp B/P Pulse Ox O2 Delivery O2 Flow Rate FiO2 09/11/16 09:39 94 35 09/11/16 04:00 98.2 70 16 169/83 Intake and Output 09/10/16 09/10/16 09/10/16 07:59 15:59 23:59 Intake Total 1102 ml 1154 ml 853 ml Output Total 534 ml 409 ml 318 ml Balance 568 ml 745 ml 535 ml (Sergey Melton S. PA) Physical Examination Heart: NSR. No murmurs. Resp: CTA bilaterally. Trach in place. PC rate 14 FiO2 35% PEEP 5. Abd: Soft positive bs. Skin: No cyanosis or erythema. SCDs in place. Muscle: Not following for muscle testing. Withdraws all 4 extremities to pain , right hemiparesis. Localizes with LUE to pain in upper chest. Some spontaneous movement with LUE. Neuro: Pt off sedative drips. Pt not opening eyes. Pupils 2mm bilaterally, reactive bilaterally. Not following commands. Ventriculostomy in place at 20 cmH2O. ICP 13-14. (Sergey Melton) Lab, Micro, Other Results Laboratory Tests Test 09/11/16 03:27 White Blood Count 9.2 TH/MM3 Red Blood Count 2.75 MIL/MM3 Hemoglobin 9.0 GM/DL Hematocrit 26.2 % Mean Corpuscular Volume 95.3 FL Mean Corpuscular Hemoglobin 32.6 PG Mean Corpuscular Hemoglobin 34.2 % Concent Red Cell Distribution Width 12.4 % Platelet Count 292 TH/MM3 Mean Platelet Volume 12.2 FL Neutrophils (%) (Auto) 74.8 % Lymphocytes (%) (Auto) 10.9 % Monocytes (%) (Auto) 8.7 % Eosinophils (%) (Auto) 5.2 % Basophils (%) (Auto) 0.4 % Neutrophils # (Auto) 6.9 TH/MM3 Lymphocytes # (Auto) 1.0 TH/MM3 Monocytes # (Auto) 0.8 TH/MM3 Eosinophils # (Auto) 0.5 TH/MM3 Basophils # (Auto) 0.0 TH/MM3 CBC Comment AUTO DIFF Differential Comment AUTO DIFF CONFIRMED Platelet Estimate NORMAL Platelet Morphology Comment NORMAL 09/10/16 09/10/16 09/11/16 14:59 22:59 06:59 Intake Total 1154 ml 853 ml 785 ml Output Total 409 ml 318 ml 336 ml Balance 745 ml 535 ml 449 ml Intake IV Total 246 ml 168 ml 150 ml Tube Feeding 308 ml 385 ml 335 ml Other 600 ml 300 ml 300 ml Output Urine Total 375 ml 300 ml 325 ml Drainage Total 34 ml 18 ml 11 ml # Voids 2 # Bowel Movements 1 0 (Sergey Melton) Medical Decision Making Impression and Plan A: 61 y/o M with Left basal ganglia hemorrhage with intraventricular extension with mild hydrocephalus. This is a characteristic of a hypertensive bleed. 2. Unregulated hypertension. 3. Respiratory failure secondary to the intracranial hemorrhage. 4. Fevers PLAN Continue with ventriculostomy drain Continue with blood pressure control Continue with critical care- trach and vent. UTI gram - julia sensitive to abx sputum staph aureus sensitive to abx. (Sergey Melton) Attending Statement The exam, history, and the medical decision-making described in the above note were completed with the assistance of the mid-level provider. I reviewed and agree with the findings presented. I attest that I had a [id number] encounter with the patient on the same day, and personally performed and documented my assessment and findings in the medical record. (Jeff Croft MD) Sergey Melton Sep 11, 2016 09:50 Jeff Croft MD Sep 11, 2016 18:19
[2016-09-11] MEDS: SODIUM CHLORIDE 0.9% FLUSH 5 ML FLUSH IVF SCH (10:12)
[2016-09-11] MEDS: SODIUM CHLORIDE 0.9% FLUSH 5 ML FLUSH IV FLUSH SCH ×2 (10:12→21:00)
[2016-09-11] MEDS: cloNIDine HCL 0.2 MG TAB PO SCH (10:14)
[2016-09-11] MEDS: METOPROLOL TARTRATE 50 MG TAB PO SCH ×2 (10:14→21:00)
[2016-09-11] MEDS: PANTOPRAZOLE SODIUM 40 MG VIAL IV SCH (10:14)
[2016-09-11] MEDS: LISINOPRIL 20 MG TAB PO SCH ×2 (10:15→21:00)
[2016-09-11] MEDS: ARTIFICIAL TEARS OPTH SOLN 15 ML BTL EACH EYE SCH ×3 (10:18→16:22)
[2016-09-11] MEDS: BENEPROTEIN POWDER 1 PACK G-TUBE SCH ×3 (10:19→16:22)
[2016-09-11] MEDS: cefTRIAXone INJ 1,000 MG in SODIUM CHLORIDE 0.9% INJ 100 ML IV SCH (11:53)
[2016-09-11] MEDS ORDERED: FAMOTIDINE SUSP 40 MG/5 ML NG SCH (12:45)
--- NOTE | 2016-09-11 12:52 | HHI.CCPN ---
Subjective Remarks/Hospital Course This is a middle-aged male. Date of admission 08/26/2016. Past medical history is unknown. His real name is Rafy Ruiz. Haritha Ruiz [phone] is the health proxy. Per ED report, patient was acute onset 1 hour prior to admission of right upper and lower extremity weakness and dysarthria. Upon presentation to the ED, patient was quite hypertensive and had decreased responsiveness. Patient was intubated by ED physician. [address] head revealed a left intraparenchymal hemorrhage/basal ganglia with extension to the lateral ventricle with a 5 mm shift to the right. Neurosurgery was consulted/Dr. Croft who placed Right frontal ventriculostomy. Laboratories reveal potassium 2.8. Currently on Cardene drip at 15 mg an hour. SUBJ: Remains intubated, on fentanyl. Propofol on hold. On Cardene infusion at 1mg per hour. Ventric with 87 ml blood-tinged CSF since placement. ICP well controlled,. Patient's [id number] is at the bedside, is in [place] 08/28: continues to have poor neurologic exam. on Cardene at 5mg/hr this AM. EVD with blood-tinged CSF, patent. ICP controlled. not yet on sedation hold this AM to my exam. 08/29: no change in neuro exam. cardene persists for blood pressure control. 08/30: encephalopathy persists. still on cardene at 5mg/hr for blood pressure. 08/31: hypernatremia persists. poor neuro exam still. unable to tolerate sedation holiday due to hypertension. labetalol increased yesterday with only mild improvements. did not diurese well with lasix 20 yesterday. 09/01: Remains off sedation since yesterday. Appears to localize with left upper extremity. Blood pressure control improved. Urine output excellent 3.9 L in 24 hours, EVD with 192 mL output in 24 hours 09/02: No improvement in neurological function. 09/03: No change in neuro status. Still waiting for photo ID. 09/04: No change. Plan trach today to facilitate long-tern vent weaning. 09/05: Hypertensive. Will increase lisinopril and add lopressor. 09/06: Transitioning to oral hypertension meds. Trach site dry clean. 09/07: BP control acceptable but needs fine tuning. Diuresis has been adequate - hold for now. Tolerates up to 2 hours CPAP - now a long-term weaning problem. 09/08: BP control acceptable. Trying to convert to oral meds only. 09/09: BP control better. Fever, leukocytosis worrisome. 09/10: MSSA in sputum, GNR in urine. Start ceftriaxone, stop Vanc and Cefepime. D/C izaguirre. 09/11: WBC declining nicely. BP control still problematic, presently on Lopressor, Norvasc, Lisinopril, and Catapres (all large doses). Objective Vital Signs Date Time Temp Pulse Resp B/P Pulse Ox O2 Delivery O2 Flow Rate FiO2 09/11/16 09:39 94 35 09/11/16 04:00 98.2 70 16 169/83 Intake and Output 09/10/16 09/10/16 09/11/16 08:00 16:00 00:00 Intake Total 1102 ml 1154 ml 853 ml Output Total 534 ml 409 ml 318 ml Balance 568 ml 745 ml 535 ml Result Diagram: 09/11/16 0327 09/10/16 0400 Imaging Last Impressions Head CT 08/26/16 0000 Signed Impressions: Service Date/Time: Friday, August 26, 2016 15:41 - CONCLUSION: 1. Large intraparenchymal hemorrhage in the left basal ganglia with extension into left lateral ventricle. 2. Surrounding edema and mild midline shift to the right. Frederick Zaldivar MD Chest X-Ray 08/26/16 0000 Signed Impressions: Service Date/Time: Friday, August 26, 2016 14:37 - CONCLUSION: 1. Status post intubation with the endotracheal tube tip approximately 5 cm above the chela. 2. Midinspiratory study with crowding of the lung vasculature. Frederick Zaldivar MD Objective Remarks GENERAL: Middle-aged male, tracheally intubated SKIN: Warm, dry. HEAD: Atraumatic. Normocephalic. Ventric draining. EYES:. No conjunctival icterus. No injection or drainage. NECK: Trachea midline. Trach with mild erythema, dry. CARDIOVASCULAR: Regular rate and rhythm. No m,r. No JVD. RESPIRATORY: Clear to auscultation. Breath sounds equal bilaterally. mechanically ventilated. Tolerates extended CPAP trial for several hours only. GASTROINTESTINAL: Abdomen soft, non-tender, nondistended. no guarding. BS active. MUSCULOSKELETAL: Extremities without peripheral edema.Warm, well perfused. NEUROLOGICAL: Flaccid right upper extremity, appears to localize with left upper extremity and slightly withdraws lower extremities to pain. More aggressive with left arm. A/P Assessment and Plan Assessment: middle-aged male with large left basal ganglia ICH. His ICH score is 2, giving him an estimated 37% 30-day mortality. MRI, however, is positive for a number of other small hemorrhages which neurosurgery think may be related to possible amyloid angiopathy, and likely his prognosis is much poorer than initially estimated. His course was complicated by acute hypoxic and hypercarbic respiratory failure. Neuro/Psych: Left basal ganglia intraparenchymal hemorrhage s/p Right frontal ventriculostomy placement 08/[address] head revealed left basal ganglia intraparenchymal hemorrhage 3.42 cm with extension to lateral ventricle, midline shift 5 mm to the right. Neurosurgery/Dr. Croft. Right frontal twist drill hole ventriculostomy. Neuro checks q1h Goal systolic blood pressure less than 140 continue to keep Na 145-150 Keppra 500 IV every 12 hours each prophylaxis 7 days ICP currently well controlled -- EEG 08/30: generalized slowing, no seizure activity. CV: Hypertensive emergency Currently off Cardene drip continue amlodipine 10mg po daily continue labetalol 400mg po q8h continue hydralazine 50mg po q8hr. goal SBP < 140. Hydralazine 100 tid, lisinopril 20 po bid, lopressor 100 bid. catapres 0.3 bid. Stop labetalol. Resp: Acute hypoxic and hypercarbic respiratory failure PRVC Ventilator bundle As needed bronchodilator therapy Spontaneous breathing trials when clinically indicated, and cleared by neurosurgery, does not meet criteria today. wean fio2 for goal spo2 > 90%. HOB at 30 degrees. CPAP extended trials -> flow by GI: Acute Protein Calorie Malnutrition-mild Constipation Tube feeds with Jevity, having BM Protonix for GI prophylaxis Colace/as needed Senokot for bowel regimen. goal daily bowel movements. : Izaguirre for accurate I/Os. Endo: Hyperglycemia of Critical Illness Sliding-scale insulin with Accu-Cheks every 4 hours to maintain euglycemia. Low regimen Renal: Intravascular hypervolemia Monitor renal function closely Resolved Heme: daily CBC. ID: Monitor for infection FEN: Hypokalemia Replace per ICU electrolyte protocol. MSK: PT evaluate and treat Access - izaguirre Prophylaxis - GI - Protonix - DVT - SCD Overall impression: Tracheostomy placed. BP meds still getting adjusted. Diuretics stopped. New fever worrisome, cultures indicate UTI webb-sensitive. Jonny Samuels MD Sep 11, 2016 12:52
[2016-09-11] MEDS: FAMOTIDINE 20 MG TAB NG SCH (21:00)
[2016-09-11] MEDS: cloNIDine HCL 0.3 MG TAB PO SCH (21:00)
[2016-09-12] VITALS (18 sets, daily range): BP systolic 122–165; BP diastolic 64–96; PULSE 56–87; RESP 14–28; TEMP 98.3–99.3; O2SAT 97–100
[2016-09-12] MEDS ORDERED: PHARMACY ORDERED LAB XX ONE (00:45)
[2016-09-12] MEDS: FREE WATER G-TUBE SCH ×3 (04:00→20:00)
[2016-09-12] MEDS: CHLORHEXIDINE GLUCONATE 2 % 1 PACK (2 CLOTHS) TOP SCH (04:00)
[2016-09-12] MEDS: INSULIN NovoLIN REGULAR SUPPLEMENTAL SCALE SQ SCH ×6 (04:00→20:00)
[2016-09-12 04:54] LABS: BICARBONATE 27.7 MEQ/L (21.0-32.0); POTASSIUM 3.4 MEQ/L (3.5-5.1)
[2016-09-12] MEDS: ACETAMINOPHEN 325 MG TAB PO PRN ×2 (05:00→20:30)
[2016-09-12] MEDS: hydrALAZINE HCL 100 MG TAB PO SCH ×3 (05:00→22:00)
[2016-09-12] MEDS: POTASSIUM CL 40 MEQ/30 ML LIQ UDC PO/TUBE PRN (05:07)
--- NOTE | 2016-09-12 08:57 | HHI.NSPN ---
(Sergey Melton) History Chief Complaint: Left basal ganglia hemorrhage (Sergey Melton) Interval History This is a middle-aged gentleman who apparently was brought to [facility] Emergency Room with acute onset of right-sided weakness and slurred speech. He was hypertensive on presentation and had a declining neurologic examination requiring intubation for airway control with ventilator support. CT scan of the head obtained reveals a basal ganglia hemorrhage on the left side measuring about 3.4 cm in diameter. There is also extension of the hemorrhage into the left lateral ventricle. No hydrocephalus is noted, although left temporal horn is dilated. Currently there is no friends or family members here to relate a history and his identity is unknown. 08/27/16: Pt sedated on Diprivan. Not opening eyes. Not following commands. Pupils 2mm bilaterally slight reaction bilaterally. 08/28/16: Pt sedated on Diprivan. Not opening eyes. Pupils 2mm bilaterally slight brisk reaction. Not following commands. 08/29/16: Pt sedated with Diprivan and Fentanyl drips. Not opening eyes. Pupils 2mm bilaterally slight brisk reaction. Not following commands. 09/01/16: Pt off sedation. Not opening eyes. Pupils 3mm bilaterally reactive. Not following commands. Ventriculostomy in place. ICP 18 after stimulation. 09/02/16: Pt off sedation. Not opening eyes to pain. Pupils 3mm bilaterally reactive bilaterally. Not following commands. ICP 11 with ventriculostomy drain at [id number]. 09/03/16: Pt off sedative drips. Not opening eyes. Ventriculostomy drain clamped, reportedly had to be opened multiple times last night. Currently tolerating clamping since 730am. 09/04/16: Pt not opening eyes. Pupils 4mm bilaterally reactive bilaterally. Not following commands. Withdraws UEs to pain. Localizes with LUE to pain in upper chest. 09/05/16: Pt not opening eyes. Pupils 4mm bilaterally reactive bilaterally. Not following commands. Spontaneously moves LUE. Localizes to pain with LUE. Right hemiparesis but withdraws to pain. 09/06/16: Pt not opening eyes. Off sedation. Pupils 4mm bilaterally reactive bilaterally. Not following commands. spontaneously moves LUE. Localizes to pain with LUE. Right hemiparesis. 09/07/16: Pt not opening eyes. No sedation. Pupils 4mm bilaterally, reactive bilaterally. Not following commands. right hemiparesis. Spontaneous movement in LUE and localizes to pain with LUE. 09/08/16: Pt not opening eyes. Pupils 4mm bilaterally. Ventriculostomy had been clamped several times last night but has to be reopened for elevated ICPs. Currently Ventriculostomy at [id number] ICP 19-20. 09/09/16: Pt not opening eyes. Pupils 4mm bilaterally, reactive bilaterally. Ventriculostomy drain at [id number] with bloody CSF drainage. ICPs 9. 09/10/16: Pt not opening eyes. Pupils 4mm bilaterally reactive bilaterally. Ventriculostomy drain at [id number] with bloody CSF drainage. ICP 14. 09/11/16: Pt not opening eyes. Pupils 2mm bilaterally reactive bilaterally. Ventriculostomy drain at [id number] with old bloody CSF drainage. ICP 13-14. 09/12/16: Pt opening eyes today to stimulation. Not following commands. 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 Right hemiparesis. (Sergey Melton) System Review Comments Not able to obtain given clinical condition. (Sergey Melton) Exam Results Vital Signs Date Time Temp Pulse Resp B/P Pulse Ox O2 Delivery O2 Flow Rate FiO2 09/12/16 06:00 68 09/12/16 04:00 40 09/12/16 04:00 98.8 16 165/96 99 Intake and Output 09/11/16 09/11/16 09/12/16 08:00 16:00 00:00 Intake Total 785 ml 616 ml 1004 ml Output Total 336 ml 362 ml 1076 ml Balance 449 ml 254 ml -72 ml (Sergey Melton) Physical Examination Heart: NSR. No murmurs. Resp: CTA bilaterally. Trach in place. Abd: Soft positive bs. Skin: No cyanosis or erythema. SCDs in place. Muscle: Not following for muscle testing. Withdraws all 4 extremities to pain , right hemiparesis. Localizes with LUE to pain in upper chest. Spontaneous movement with LUE. Neuro: Pt off sedative drips. Opening eyes consistently for first time today. Pupils 2mm bilaterally, reactive bilaterally. Not following commands. Ventriculostomy in place at 20 cmH2O. ICP 14. (Sergey Melton) Lab, Micro, Other Results Laboratory Tests Test 09/12/16 03:25 Sodium Level 144 MEQ/L Potassium Level 3.4 MEQ/L Chloride Level 109 MEQ/L Carbon Dioxide Level 27.7 MEQ/L Anion Gap 7 MEQ/L Blood Urea Nitrogen 25 MG/DL Creatinine 0.63 MG/DL Estimat Glomerular Filtration 129 ML/MIN Rate Random Glucose 169 MG/DL Calcium Level 9.1 MG/DL 09/11/16 09/11/16 09/12/16 15:00 23:00 07:00 Intake Total 566 ml 1054 ml 814 ml Output Total 362 ml 1076 ml 293 ml Balance 204 ml -22 ml 521 ml Intake IV Total 415 ml 43 ml Tube Feeding 336 ml 389 ml 371 ml Other 230 ml 250 ml 400 ml Output Urine Total 350 ml 1050 ml 275 ml Drainage Total 12 ml 26 ml 18 ml # Voids 1 1 # Bowel Movements 1 1 0 (Sergey Melton) Medical Decision Making Impression and Plan A: 61 y/o M with Left basal ganglia hemorrhage with intraventricular extension with mild hydrocephalus. This is a characteristic of a hypertensive bleed. 2. Unregulated hypertension. 3. Respiratory failure secondary to the intracranial hemorrhage. 4. Fevers 5. UTI gram - julia sensitive to abx 6. sputum staph aureus sensitive to abx. 7. Blood and CSF negative at 72 hours. PLAN Continue with ventriculostomy drain Continue with blood pressure control Continue with critical care- trach and vent. UTI gram - julia sensitive to abx sputum staph aureus sensitive to abx. Blood and CSF negative at 72 hours. (Sergey Melton) Attending Statement The exam, history, and the medical decision-making described in the above note were completed with the assistance of the mid-level provider. I reviewed and agree with the findings presented. I attest that I had a [id number] encounter with the patient on the same day, and personally performed and documented my assessment and findings in the medical record. (Jeff Croft MD) Sergey Melton Sep 12, 2016 08:57 Jeff Croft MD Sep 12, 2016 15:32
[2016-09-12] MEDS: BISACODYL 10 MG SUPP RECTAL SCH (09:00)
[2016-09-12] MEDS: LACTULOSE SYRUP 20 GM/30 ML CUP PO SCH ×2 (09:00→20:31)
[2016-09-12] MEDS: METOPROLOL TARTRATE 50 MG TAB PO SCH ×2 (09:00→20:30)
[2016-09-12] MEDS: SODIUM CHLORIDE 0.9% FLUSH 5 ML FLUSH IVF SCH (09:00)
[2016-09-12] MEDS: DOCUSATE SODIUM 100 MG CAP PO SCH ×2 (09:00→20:32)
[2016-09-12] MEDS: POLYETHYLENE GLYCOL 17 GM PKG PO SCH ×2 (09:00→20:31)
[2016-09-12] MEDS: cloNIDine HCL 0.3 MG TAB PO SCH ×2 (09:03→20:30)
[2016-09-12] MEDS: FAMOTIDINE 20 MG TAB NG SCH ×2 (09:03→20:30)
[2016-09-12] MEDS: JUVEN POWDER 1 PACK G-TUBE SCH ×2 (09:04→20:32)
[2016-09-12] MEDS: LISINOPRIL 20 MG TAB PO SCH ×2 (09:04→20:30)
[2016-09-12] MEDS: ARTIFICIAL TEARS OPTH SOLN 15 ML BTL EACH EYE SCH ×3 (09:04→17:05)
[2016-09-12] MEDS: SODIUM CHLORIDE 0.9% FLUSH 5 ML FLUSH IV FLUSH SCH ×2 (09:04→20:31)
[2016-09-12] MEDS: BENEPROTEIN POWDER 1 PACK G-TUBE SCH ×3 (09:04→17:05)
[2016-09-12] MEDS: CHLORHEXIDINE 0.12% (ORAL KIT) 15 ML CUP MT SCH ×2 (09:05→20:00)
[2016-09-12] MEDS: hydrALAZINE HCL 20 MG/ML VIAL IV PUSH PRN (11:05)
[2016-09-12] MEDS: cefTRIAXone INJ 1,000 MG in SODIUM CHLORIDE 0.9% INJ 100 ML IV SCH (13:15)
--- NOTE | 2016-09-12 14:40 | HHI.CCPN ---
Subjective Remarks/Hospital Course This is a middle-aged male. Date of admission 08/26/2016. Past medical history is unknown. His real name is Rafy Ruiz. Haritha Ruiz [phone] is the health proxy. Per ED report, patient was acute onset 1 hour prior to admission of right upper and lower extremity weakness and dysarthria. Upon presentation to the ED, patient was quite hypertensive and had decreased responsiveness. Patient was intubated by ED physician. [address] head revealed a left intraparenchymal hemorrhage/basal ganglia with extension to the lateral ventricle with a 5 mm shift to the right. Neurosurgery was consulted/Dr. Croft who placed Right frontal ventriculostomy. Laboratories reveal potassium 2.8. Currently on Cardene drip at 15 mg an hour. SUBJ: Remains intubated, on fentanyl. Propofol on hold. On Cardene infusion at 1mg per hour. Ventric with 87 ml blood-tinged CSF since placement. ICP well controlled,. Patient's [id number] is at the bedside, is in [place] 08/28: continues to have poor neurologic exam. on Cardene at 5mg/hr this AM. EVD with blood-tinged CSF, patent. ICP controlled. not yet on sedation hold this AM to my exam. 08/29: no change in neuro exam. cardene persists for blood pressure control. 08/30: encephalopathy persists. still on cardene at 5mg/hr for blood pressure. 08/31: hypernatremia persists. poor neuro exam still. unable to tolerate sedation holiday due to hypertension. labetalol increased yesterday with only mild improvements. did not diurese well with lasix 20 yesterday. 09/01: Remains off sedation since yesterday. Appears to localize with left upper extremity. Blood pressure control improved. Urine output excellent 3.9 L in 24 hours, EVD with 192 mL output in 24 hours 09/02: No improvement in neurological function. 09/03: No change in neuro status. Still waiting for photo ID. 09/04: No change. Plan trach today to facilitate long-tern vent weaning. 09/05: Hypertensive. Will increase lisinopril and add lopressor. 09/06: Transitioning to oral hypertension meds. Trach site dry clean. 09/07: BP control acceptable but needs fine tuning. Diuresis has been adequate - hold for now. Tolerates up to 2 hours CPAP - now a long-term weaning problem. 09/08: BP control acceptable. Trying to convert to oral meds only. 09/09: BP control better. Fever, leukocytosis worrisome. 09/10: MSSA in sputum, GNR in urine. Start ceftriaxone, stop Vanc and Cefepime. D/C izaguirre. 09/11: WBC declining nicely. BP control still problematic, presently on Lopressor, Norvasc, Lisinopril, and Catapres (all large doses). 09/12: BP control improved. WBC improved after ceftriaxone started. Objective Vital Signs Date Time Temp Pulse Resp B/P Pulse Ox O2 Delivery O2 Flow Rate FiO2 09/12/16 12:19 97 35 09/12/16 12:00 87 09/12/16 12:00 99.1 26 122/64 Intake and Output 09/11/16 09/11/16 09/12/16 08:00 16:00 00:00 Intake Total 785 ml 616 ml 1004 ml Output Total 336 ml 362 ml 1076 ml Balance 449 ml 254 ml -72 ml Result Diagram: 09/11/16 0327 09/12/16 0325 Imaging Last Impressions Head CT 08/26/16 0000 Signed Impressions: Service Date/Time: Friday, August 26, 2016 15:41 - CONCLUSION: 1. Large intraparenchymal hemorrhage in the left basal ganglia with extension into left lateral ventricle. 2. Surrounding edema and mild midline shift to the right. Frederick Zaldivar MD Chest X-Ray 08/26/16 0000 Signed Impressions: Service Date/Time: Friday, August 26, 2016 14:37 - CONCLUSION: 1. Status post intubation with the endotracheal tube tip approximately 5 cm above the chela. 2. Midinspiratory study with crowding of the lung vasculature. Frederick Zaldivar MD Objective Remarks GENERAL: Middle-aged male, tracheally intubated SKIN: Warm, dry. HEAD: Atraumatic. Normocephalic. Ventric draining. EYES:. No conjunctival icterus. No injection or drainage. NECK: Trachea midline. Trach with mild erythema, dry. CARDIOVASCULAR: Regular rate and rhythm. No m,r. No JVD. RESPIRATORY: Clear to auscultation. Breath sounds equal bilaterally. mechanically ventilated. Tolerates extended CPAP trial for several hours only. GASTROINTESTINAL: Abdomen soft, non-tender, nondistended. no guarding. BS active. MUSCULOSKELETAL: Extremities without peripheral edema.Warm, well perfused. NEUROLOGICAL: Flaccid right upper extremity, appears to localize with left upper extremity and slightly withdraws lower extremities to pain. More aggressive with left arm. A/P Assessment and Plan Assessment: middle-aged male with large left basal ganglia ICH. His ICH score is 2, giving him an estimated 37% 30-day mortality. MRI, however, is positive for a number of other small hemorrhages which neurosurgery think may be related to possible amyloid angiopathy, and likely his prognosis is much poorer than initially estimated. His course was complicated by acute hypoxic and hypercarbic respiratory failure. Neuro/Psych: Left basal ganglia intraparenchymal hemorrhage s/p Right frontal ventriculostomy placement 08/[address] head revealed left basal ganglia intraparenchymal hemorrhage 3.42 cm with extension to lateral ventricle, midline shift 5 mm to the right. Neurosurgery/Dr. Croft. Right frontal twist drill hole ventriculostomy. Neuro checks q1h Goal systolic blood pressure less than 140 continue to keep Na 145-150 Keppra 500 IV every 12 hours each prophylaxis 7 days ICP currently well controlled -- EEG 08/30: generalized slowing, no seizure activity. CV: Hypertensive emergency Currently off Cardene drip continue amlodipine 10mg po daily continue labetalol 400mg po q8h continue hydralazine 50mg po q8hr. goal SBP < 140. Hydralazine 100 tid, lisinopril 20 po bid, lopressor 100 bid. catapres 0.3 bid. Stop labetalol. Resp: Acute hypoxic and hypercarbic respiratory failure PRVC Ventilator bundle As needed bronchodilator therapy Spontaneous breathing trials when clinically indicated, and cleared by neurosurgery, does not meet criteria today. wean fio2 for goal spo2 > 90%. HOB at 30 degrees. CPAP extended trials -> flow by GI: Acute Protein Calorie Malnutrition-mild Constipation Tube feeds with Jevity, having BM Protonix for GI prophylaxis Colace/as needed Senokot for bowel regimen. goal daily bowel movements. : Izaguirre for accurate I/Os. Endo: Hyperglycemia of Critical Illness Sliding-scale insulin with Accu-Cheks every 4 hours to maintain euglycemia. Low regimen Renal: Intravascular hypervolemia Monitor renal function closely Resolved Heme: daily CBC. ID: Monitor for infection FEN: Hypokalemia Replace per ICU electrolyte protocol. MSK: PT evaluate and treat Access - izaguirre Prophylaxis - GI - Protonix - DVT - SCD Overall impression: Tracheostomy placed. BP meds still being adjusted. Diuretics stopped. New fever worrisome, cultures indicate UTI webb-sensitive, improved fever curve. Jonny Samuels MD Sep 12, 2016 14:40
[2016-09-13] VITALS (18 sets, daily range): BP systolic 133–158; BP diastolic 73–79; PULSE 54–83; RESP 14–22; TEMP 98.2–99; O2SAT 98–100
[2016-09-13] MEDS: FREE WATER G-TUBE SCH ×3 (04:00→19:53)
[2016-09-13] MEDS: INSULIN NovoLIN REGULAR SUPPLEMENTAL SCALE SQ SCH ×7 (04:00→23:08)
[2016-09-13] MEDS: CHLORHEXIDINE GLUCONATE 2 % 1 PACK (2 CLOTHS) TOP SCH (04:00)
[2016-09-13] MEDS: ACETAMINOPHEN 325 MG TAB PO PRN (06:05)
[2016-09-13] MEDS: hydrALAZINE HCL 100 MG TAB PO SCH ×3 (06:06→21:12)
[2016-09-13] MEDS: CHLORHEXIDINE 0.12% (ORAL KIT) 15 ML CUP MT SCH ×2 (08:04→19:53)
[2016-09-13] MEDS: JUVEN POWDER 1 PACK G-TUBE SCH ×2 (08:05→19:53)
[2016-09-13] MEDS: LACTULOSE SYRUP 20 GM/30 ML CUP PO SCH ×2 (08:05→19:53)
[2016-09-13] MEDS: ARTIFICIAL TEARS OPTH SOLN 15 ML BTL EACH EYE SCH ×3 (08:05→17:28)
[2016-09-13] MEDS: LISINOPRIL 20 MG TAB PO SCH ×2 (08:05→19:52)
[2016-09-13] MEDS: BENEPROTEIN POWDER 1 PACK G-TUBE SCH ×3 (08:05→17:28)
[2016-09-13] MEDS: SODIUM CHLORIDE 0.9% FLUSH 5 ML FLUSH IV FLUSH SCH ×2 (08:05→19:53)
[2016-09-13] MEDS: SODIUM CHLORIDE 0.9% FLUSH 5 ML FLUSH IVF SCH (08:05)
[2016-09-13] MEDS: DOCUSATE SODIUM 100 MG CAP PO SCH ×2 (08:06→19:53)
[2016-09-13] MEDS: FAMOTIDINE 20 MG TAB NG SCH ×2 (08:06→19:53)
[2016-09-13] MEDS: METOPROLOL TARTRATE 50 MG TAB PO SCH ×2 (08:06→19:53)
[2016-09-13] MEDS: POLYETHYLENE GLYCOL 17 GM PKG PO SCH ×2 (08:06→19:53)
[2016-09-13] MEDS: cloNIDine HCL 0.3 MG TAB PO SCH ×2 (08:06→19:52)
[2016-09-13] MEDS: BISACODYL 10 MG SUPP RECTAL SCH (08:46)
--- NOTE | 2016-09-13 09:46 | HHI.NSPN ---
(Katelyn Tovar) Note Status Status: Progress Note (Katelyn Tovar) Interval History Interval History This is a middle-aged gentleman who apparently was brought to [facility] Emergency Room with acute onset of right-sided weakness and slurred speech. He was hypertensive on presentation and had a declining neurologic examination requiring intubation for airway control with ventilator support. CT scan of the head obtained reveals a basal ganglia hemorrhage on the left side measuring about 3.4 cm in diameter. There is also extension of the hemorrhage into the left lateral ventricle. No hydrocephalus is noted, although left temporal horn is dilated. Currently there is no friends or family members here to relate a history and his identity is unknown. 08/27/16: Pt sedated on Diprivan. Not opening eyes. Not following commands. Pupils 2mm bilaterally slight reaction bilaterally. 08/28/16: Pt sedated on Diprivan. Not opening eyes. Pupils 2mm bilaterally slight brisk reaction. Not following commands. 08/29/16: Pt sedated with Diprivan and Fentanyl drips. Not opening eyes. Pupils 2mm bilaterally slight brisk reaction. Not following commands. 09/01/16: Pt off sedation. Not opening eyes. Pupils 3mm bilaterally reactive. Not following commands. Ventriculostomy in place. ICP 18 after stimulation. 09/02/16: Pt off sedation. Not opening eyes to pain. Pupils 3mm bilaterally reactive bilaterally. Not following commands. ICP 11 with ventriculostomy drain at [id number]. 09/03/16: Pt off sedative drips. Not opening eyes. Ventriculostomy drain clamped, reportedly had to be opened multiple times last night. Currently tolerating clamping since 730am. 09/04/16: Pt not opening eyes. Pupils 4mm bilaterally reactive bilaterally. Not following commands. Withdraws UEs to pain. Localizes with LUE to pain in upper chest. 09/05/16: Pt not opening eyes. Pupils 4mm bilaterally reactive bilaterally. Not following commands. Spontaneously moves LUE. Localizes to pain with LUE. Right hemiparesis but withdraws to pain. 09/06/16: Pt not opening eyes. Off sedation. Pupils 4mm bilaterally reactive bilaterally. Not following commands. spontaneously moves LUE. Localizes to pain with LUE. Right hemiparesis. 09/07/16: Pt not opening eyes. No sedation. Pupils 4mm bilaterally, reactive bilaterally. Not following commands. right hemiparesis. Spontaneous movement in LUE and localizes to pain with LUE. 09/08/16: Pt not opening eyes. Pupils 4mm bilaterally. Ventriculostomy had been clamped several times last night but has to be reopened for elevated ICPs. Currently Ventriculostomy at [id number] ICP 19-20. 09/09/16: Pt not opening eyes. Pupils 4mm bilaterally, reactive bilaterally. Ventriculostomy drain at [id number] with bloody CSF drainage. ICPs 9. 09/10/16: Pt not opening eyes. Pupils 4mm bilaterally reactive bilaterally. Ventriculostomy drain at [id number] with bloody CSF drainage. ICP 14. 09/11/16: Pt not opening eyes. Pupils 2mm bilaterally reactive bilaterally. Ventriculostomy drain at [id number] with old bloody CSF drainage. ICP 13-14. 09/12/16: Pt opening eyes today to stimulation. Not following commands. 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 Right hemiparesis. 09/13: challenging ventriculostomy drain, at 20 cm H20 with normal ICPs. opens eyes, moves left uppers (Katelyn Tovar) Labs, Micro, & Vital Signs Results Date Time Temp Pulse Resp B/P Pulse Ox O2 Delivery O2 Flow Rate FiO2 09/13/16 08:10 35 09/13/16 08:10 100 35 09/13/16 08:00 35 09/13/16 08:00 72 09/13/16 08:00 99.0 57 15 152/75 99 09/13/16 06:00 66 09/13/16 04:00 98.4 54 14 158/79 100 09/13/16 04:00 40 09/13/16 04:00 54 09/13/16 03:39 100 35 09/13/16 02:00 58 09/13/16 00:05 100 35 09/13/16 00:00 98.2 61 15 133/77 100 09/13/16 00:00 40 09/13/16 00:00 61 09/12/16 22:00 56 09/12/16 20:07 99 35 09/12/16 20:00 99.3 71 15 145/75 99 09/12/16 20:00 40 09/12/16 20:00 71 09/12/16 18:00 82 09/12/16 17:24 99 35 09/12/16 16:00 98.9 70 28 131/68 98 09/12/16 16:00 73 09/12/16 16:00 35 09/12/16 14:00 66 09/12/16 12:19 97 35 09/12/16 12:00 87 09/12/16 12:00 35 09/12/16 12:00 99.1 78 26 122/64 98 09/12/16 11:35 35 09/12/16 10:00 58 09/13/16 07:00 Intake Total 2210 ml Output Total 1684 ml Balance 526 ml Constitutional Vital Signs Date Time Temp Pulse Resp B/P Pulse Ox O2 Delivery O2 Flow Rate FiO2 09/13/16 08:10 35 09/13/16 08:10 100 35 09/13/16 08:00 35 09/13/16 08:00 72 09/13/16 08:00 99.0 57 15 152/75 99 09/13/16 06:00 66 09/13/16 04:00 98.4 54 14 158/79 100 09/13/16 04:00 40 09/13/16 04:00 54 09/13/16 03:39 100 35 09/13/16 02:00 58 09/13/16 00:05 100 35 09/13/16 00:00 98.2 61 15 133/77 100 09/13/16 00:00 40 09/13/16 00:00 61 09/12/16 22:00 56 09/12/16 20:07 99 35 09/12/16 20:00 99.3 71 15 145/75 99 09/12/16 20:00 40 09/12/16 20:00 71 09/12/16 18:00 82 09/12/16 17:24 99 35 09/12/16 16:00 98.9 70 28 131/68 98 09/12/16 16:00 73 09/12/16 16:00 35 09/12/16 14:00 66 09/12/16 12:19 97 35 09/12/16 12:00 87 09/12/16 12:00 35 09/12/16 12:00 99.1 78 26 122/64 98 09/12/16 11:35 35 09/12/16 10:00 58 09/13/16 07:00 Intake Total 2210 ml Output Total 1684 ml Balance 526 ml (Katelyn Tovar) Review of Systems/Exam Exam Mildly opens eyes, does not follow commands. Spontaneously moves left upper Right ventriculostomy drain in place at 20 cm H20, CSF dark red. ICPs < 20 CN: pupils equal, left lateral gaze, there is right hemineglect Neck: tracheostomy Sensorimotor: moving left arm intermittently, withdraws left lower extremity to local pain, dense right hemiparesis (Katelyn Tovar) Medications Current Medications Current Medications Medications (Trade) Dose Ordered Sig/Mc Route PRN Reason Start Time Stop Time Status Last Admin Dose Admin IV Flush (NS Flush) DAILY IVF 08/27/16 09:00 09/08/16 08:00 IV Flush UNSCH PRN IVF SEE PROTOCOL 08/26/16 18:45 Potassium Chloride 100 ml @ 50 mls/hr Q2H PRN IV For Potassium 2.8 - 3.2 mEq/L 08/26/16 18:45 09/02/16 12:43 Potassium Chloride (KCl 20 Meq Premix Inj) 100 ml @ 50 mls/hr Q2H PRN IV For Potassium 2.8 - 3.2 mEq/L 08/26/16 18:45 09/06/16 15:46 Potassium Chloride 40 meq 40 meq UNSCH PRN PO/TUBE For Potassium 3.3 - 3.5 mEq/L 08/26/16 18:45 09/12/16 05:07 Potassium Chloride 100 ml @ 25 mls/hr UNSCH PRN IV For Potassium 3.3 - 3.5 mEq/L 08/26/16 18:45 08/31/16 06:35 Potassium Chloride 100 ml @ 50 mls/hr Q2H PRN IV For Potassium 3.3 - 3.5 mEq/L 08/26/16 18:45 08/28/16 06:15 Magnesium Sulfate/ Sodium Chloride (Magnesium Sulfate Inj/NS Inj) 100 ml @ 50 mls/hr UNSCH PRN IV For Magnesium 0.9 - 1.1 mg/dL 08/26/16 18:45 Magnesium Oxide 800 mg 800 mg UNSCH PRN PO For Magnesium 1.2 - 1.6 mg/dL 08/26/16 18:45 Magnesium Sulfate/ Sodium Chloride (Magnesium Sulfate Inj/NS Inj) 100 ml @ 50 mls/hr UNSCH PRN IV For Magnesium 1.2 - 1.6 mg/dL 08/26/16 18:45 Potassium Phosphate 2000 mg 2,000 mg Q4H PRN PO For Phosphorus < 2.5 mg/dL 08/26/16 18:45 Sodium Phosphate/ Sodium Chloride (Sodium Phosphate Inj/NS 250 ml Inj) 250 ml @ 42 mls/hr UNSCH PRN IV For Phosphorus < 2.5 mg/dL 08/26/16 18:45 Potassium Chloride (KCl 40 Meq/30 ml Liq) 40 meq UNSCH PRN PO/TUBE SEE LABEL COMMENTS 08/26/16 18:45 09/06/16 14:26 Potassium Phosphate 2000 mg 2,000 mg UNSCH PRN PO/TUBE SEE LABEL COMMENTS 08/26/16 18:45 Potassium Phosphate/Sodium Chloride (Potassium Phosphate Inj/NS 250 ml Inj) 260 ml @ 42 mls/hr UNSCH PRN IV SEE LABEL COMMENTS 08/26/16 18:45 08/27/16 23:57 Dextrose (D50w (Vial) Inj) 25 ml UNSCH PRN IV PUSH HYPOGLYCEMIA-SEE COMMENTS 08/26/16 18:45 Glucagon (Glucagon Inj) 1 mg UNSCH PRN OTHER HYPOGLYCEMIA-SEE COMMENTS 08/26/16 18:45 Insulin Human Regular (NovoLIN R SUPPLEMENTAL SCALE) 1 Q4HR SQ 08/26/16 20:00 09/13/16 04:00 IV Flush (NS Flush) 2 ml UNSCH PRN IV FLUSH FLUSH AFTER USING IV ACCESS 08/26/16 18:45 IV Flush (NS Flush) 2 ml BID IV FLUSH 08/26/16 21:00 09/13/16 08:05 Acetaminophen (Tylenol) 650 mg Q6H PRN PO PAIN 1-10 AND/OR FEVER >101F 08/26/16 18:45 09/10/16 08:50 Artificial Tears (Tears Naturale Opth Soln) 1 drop TID EACH EYE 08/27/16 09:00 09/13/16 08:05 Ondansetron HCl (Zofran Inj) 4 mg Q6H PRN IV NAUSEA OR VOMITING 08/26/16 18:45 Docusate Sodium (Colace) 100 mg BID PO 08/26/16 21:00 09/12/16 20:32 Sennosides (Senokot) 17.2 mg Q12H PRN PO CONSTIPATION 08/26/16 18:45 08/29/16 16:30 Miscellaneous Information 1 Q361D XX 08/26/16 18:45 Chlorhexidine Gluconate (Chlorhexidine 2% Cloth) Taper DAILY@04 TOP 08/27/16 04:00 08/23/17 03:59 09/13/16 04:00 Chlorhexidine Gluconate 3 pack 3 pack UNSCH PRN TOP HYGIENIC CARE 08/26/16 18:45 Fentanyl Citrate (fentaNYL DRIP) 250 ml @ 0 mls/hr TITRATE IV 08/26/16 18:45 08/31/16 02:41 Chlorhexidine Gluconate (Peridex 0.12% Liq) 15 ml BID@08,20 MT 08/26/16 20:00 09/13/16 08:04 Acetaminophen (Tylenol) 650 mg Q4H PRN PO PAIN SCALE 1 TO 10 08/26/16 18:45 09/13/16 06:05 Hydralazine HCl (Apresoline Inj) 10 mg Q30M PRN IV PUSH SBP>160, DBP>90 08/26/16 19:30 09/12/16 11:05 Arginine HCl (Zack Powder) 1 pack BID G-TUBE 08/27/16 21:00 09/13/16 08:05 Amlodipine Besylate (Norvasc) 10 mg DAILY PO 08/28/16 09:00 09/13/16 08:05 Labetalol HCl (Trandate Inj) 20 mg Q1H PRN IV SYS BP GREATER THAN 160 MMHG 08/28/16 15:45 09/08/16 04:37 Polyethylene Glycol (Miralax) 17 gm BID PO 08/29/16 21:00 09/13/16 08:06 Lactulose (Lactulose Liq) 30 ml BID PO 08/29/16 21:00 09/13/16 08:05 Bisacodyl (Dulcolax Supp) 10 mg DAILY RECTAL 2/11/17 09:45 09/13/16 08:46 Hydralazine HCl 100 mg 100 mg Q8HR PO 09/03/16 14:00 09/13/16 06:06 Propofol (Diprivan 1000 Mg/100ml Inj) 100 ml @ 0 mls/hr TITRATE IV 09/04/16 11:00 Lisinopril (Prinivil) 20 mg BID PO 09/05/16 21:00 09/13/16 08:05 Metoprolol Tartrate (Lopressor) 100 mg Q12HR PO 09/07/16 21:00 09/12/16 20:30 Protein 1 pack 1 pack TID G-TUBE 09/07/16 18:00 09/13/16 08:05 Ceftriaxone Sodium/Sodium Chloride (Rocephin Inj/NS Inj) 100 ml @ 200 mls/hr Q24H IV 09/10/16 13:00 09/12/16 13:15 Water (Free Water) 200 ml Q8H G-TUBE 09/11/16 20:00 09/13/16 04:00 Clonidine (Catapres) 0.3 mg Q12HR PO 09/11/16 21:00 09/13/16 08:06 Famotidine (Pepcid) 20 mg BID NG 09/11/16 21:00 09/13/16 08:06 (Katelyn Tovar) Medical Decision Making MDM Remarks 61 y/o male with left basal ganglia hemorrhage, intraventricular extension, s/p placement of ventriculostomy drain, challenging EVD (Katelyn Tovar) Plan Plan Remarks challenging ventriculostomy, clamp EVD today with ICP monitoring, reopen EVD if ICPs becomes elevated cont critical care management cont neuro checks with close monitoring dw nursing (Katelyn Tovar) Attending Statement The exam, history, and the medical decision-making described in the above note were completed with the assistance of the mid-level provider. I reviewed and agree with the findings presented. I attest that I had a [id number] encounter with the patient on the same day, and personally performed and documented my assessment and findings in the medical record. (London Couch MD) Katelyn Tovar Sep 13, 2016 09:45 London Couch MD Sep 13, 2016 18:58
[2016-09-13] MEDS: cefTRIAXone INJ 1,000 MG in SODIUM CHLORIDE 0.9% INJ 100 ML IV SCH (12:27)
--- NOTE | 2016-09-13 16:06 | HHI.CCPN ---
Subjective Remarks/Hospital Course This is a middle-aged male. Date of admission 08/26/2016. Past medical history is unknown. His real name is Rafy Ruiz. Haritha Ruiz [phone] is the health proxy. Per ED report, patient was acute onset 1 hour prior to admission of right upper and lower extremity weakness and dysarthria. Upon presentation to the ED, patient was quite hypertensive and had decreased responsiveness. Patient was intubated by ED physician. [address] head revealed a left intraparenchymal hemorrhage/basal ganglia with extension to the lateral ventricle with a 5 mm shift to the right. Neurosurgery was consulted/Dr. Croft who placed Right frontal ventriculostomy. Laboratories reveal potassium 2.8. Currently on Cardene drip at 15 mg an hour. SUBJ: Remains intubated, on fentanyl. Propofol on hold. On Cardene infusion at 1mg per hour. Ventric with 87 ml blood-tinged CSF since placement. ICP well controlled,. Patient's [id number] is at the bedside, is in [place] 08/28: continues to have poor neurologic exam. on Cardene at 5mg/hr this AM. EVD with blood-tinged CSF, patent. ICP controlled. not yet on sedation hold this AM to my exam. 08/29: no change in neuro exam. cardene persists for blood pressure control. 08/30: encephalopathy persists. still on cardene at 5mg/hr for blood pressure. 08/31: hypernatremia persists. poor neuro exam still. unable to tolerate sedation holiday due to hypertension. labetalol increased yesterday with only mild improvements. did not diurese well with lasix 20 yesterday. 09/01: Remains off sedation since yesterday. Appears to localize with left upper extremity. Blood pressure control improved. Urine output excellent 3.9 L in 24 hours, EVD with 192 mL output in 24 hours 09/02: No improvement in neurological function. 09/03: No change in neuro status. Still waiting for photo ID. 09/04: No change. Plan trach today to facilitate long-tern vent weaning. 09/05: Hypertensive. Will increase lisinopril and add lopressor. 09/06: Transitioning to oral hypertension meds. Trach site dry clean. 09/07: BP control acceptable but needs fine tuning. Diuresis has been adequate - hold for now. Tolerates up to 2 hours CPAP - now a long-term weaning problem. 09/08: BP control acceptable. Trying to convert to oral meds only. 09/09: BP control better. Fever, leukocytosis worrisome. 09/10: MSSA in sputum, GNR in urine. Start ceftriaxone, stop Vanc and Cefepime. D/C izaguirre. 09/11: WBC declining nicely. BP control still problematic, presently on Lopressor, Norvasc, Lisinopril, and Catapres (all large doses). 09/12: BP control improved. WBC improved after ceftriaxone started. 09/13: Finally on t-piece and looking strong enough to sustain. BP control improved. Objective Vital Signs Date Time Temp Pulse Resp B/P Pulse Ox O2 Delivery O2 Flow Rate FiO2 09/13/16 14:00 69 09/13/16 13:00 99 T-piece 35 09/13/16 12:00 98.8 22 136/73 Intake and Output 09/12/16 09/12/16 09/13/16 08:00 16:00 00:00 Intake Total 814 ml 709 ml 670 ml Output Total 293 ml 458 ml 850 ml Balance 521 ml 251 ml -180 ml Result Diagram: 09/11/16 0327 09/12/16 0325 Imaging Last Impressions Head CT 08/26/16 0000 Signed Impressions: Service Date/Time: Friday, August 26, 2016 15:41 - CONCLUSION: 1. Large intraparenchymal hemorrhage in the left basal ganglia with extension into left lateral ventricle. 2. Surrounding edema and mild midline shift to the right. Frederick Zaldivar MD Chest X-Ray 08/26/16 0000 Signed Impressions: Service Date/Time: Friday, August 26, 2016 14:37 - CONCLUSION: 1. Status post intubation with the endotracheal tube tip approximately 5 cm above the chela. 2. Midinspiratory study with crowding of the lung vasculature. Frederick Zaldivar MD Objective Remarks GENERAL: Middle-aged male, tracheally intubated SKIN: Warm, dry. HEAD: Atraumatic. Normocephalic. Ventric draining, being challenged now.. EYES:. No conjunctival icterus. No injection or drainage. NECK: Trachea midline. Trach with mild erythema, dry. CARDIOVASCULAR: Regular rate and rhythm. No m,r. No JVD. RESPIRATORY: Clear to auscultation. Breath sounds equal bilaterally. mechanically ventilated. Tolerating T-piece. GASTROINTESTINAL: Abdomen soft, non-tender, nondistended. no guarding. BS active. MUSCULOSKELETAL: Extremities without peripheral edema.Warm, well perfused. NEUROLOGICAL: Flaccid right upper extremity, appears to localize with left upper extremity and slightly withdraws lower extremities to pain. More aggressive with left arm. A/P Assessment and Plan Assessment: middle-aged male with large left basal ganglia ICH. His ICH score is 2, giving him an estimated 37% 30-day mortality. MRI, however, is positive for a number of other small hemorrhages which neurosurgery think may be related to possible amyloid angiopathy, and likely his prognosis is much poorer than initially estimated. His course was complicated by acute hypoxic and hypercarbic respiratory failure. Neuro/Psych: Left basal ganglia intraparenchymal hemorrhage s/p Right frontal ventriculostomy placement 08/[address] head revealed left basal ganglia intraparenchymal hemorrhage 3.42 cm with extension to lateral ventricle, midline shift 5 mm to the right. Neurosurgery/Dr. Croft. Right frontal twist drill hole ventriculostomy. Neuro checks q1h Goal systolic blood pressure less than 140 continue to keep Na 145-150 Keppra 500 IV every 12 hours each prophylaxis 7 days ICP currently well controlled -- EEG 08/30: generalized slowing, no seizure activity. CV: Hypertensive emergency Currently off Cardene drip continue amlodipine 10mg po daily continue labetalol 400mg po q8h continue hydralazine 50mg po q8hr. goal SBP < 140. Hydralazine 100 tid, lisinopril 20 po bid, lopressor 100 bid. catapres 0.3 bid. Stop labetalol. Resp: Acute hypoxic and hypercarbic respiratory failure PRVC Ventilator bundle As needed bronchodilator therapy Spontaneous breathing trials when clinically indicated, and cleared by neurosurgery, does not meet criteria today. wean fio2 for goal spo2 > 90%. HOB at 30 degrees. CPAP extended trials -> flow by GI: Acute Protein Calorie Malnutrition-mild Constipation Tube feeds with Jevity, having BM Protonix for GI prophylaxis Colace/as needed Senokot for bowel regimen. goal daily bowel movements. : Izaguirre for accurate I/Os. Endo: Hyperglycemia of Critical Illness Sliding-scale insulin with Accu-Cheks every 4 hours to maintain euglycemia. Low regimen Renal: Intravascular hypervolemia Monitor renal function closely Resolved Heme: daily CBC. ID: Monitor for infection FEN: Hypokalemia Replace per ICU electrolyte protocol. MSK: PT evaluate and treat Access - izaguirre Prophylaxis - GI - Protonix - DVT - SCD Overall impression: Tracheostomy placed. BP meds still being adjusted. Diuretics stopped. New fever worrisome, cultures indicate UTI webb-sensitive, improved fever curve. Tolerating T-piece, transfer soon. Jonny Samuels MD Sep 13, 2016 16:06
--- NOTE | 2016-09-13 16:09 | PD.TRANSFR ---
Transfer Summary Admission Date Aug 26, 2016 at 17:33 Transfer Date: Sep 14, 2016 Admitting Diagnosis Left basal ganglia bleed Diagnoses: (1) ICH (intracerebral hemorrhage) Diagnosis: Principal (2) Hypertensive emergency Diagnosis: Principal (3) Hypokalemia Diagnosis: Principal (4) Respiratory failure Diagnosis: Principal Transfer Summary/Subjective Large basal ganglia intracranial bleed. Severe neurological deficit. Finally tolerating T-piece and blood pressure controlled with oral regimen. Objective Vital Signs Date Time Temp Pulse Resp B/P Pulse Ox O2 Delivery O2 Flow Rate FiO2 09/13/16 14:00 69 09/13/16 13:00 99 T-piece 35 09/13/16 12:00 98.8 22 136/73 Intake and Output 09/12/16 09/12/16 09/13/16 08:00 16:00 00:00 Intake Total 814 ml 709 ml 670 ml Output Total 293 ml 458 ml 850 ml Balance 521 ml 251 ml -180 ml Result Diagram: 09/11/16 0327 09/12/16 0325 Imaging Last Impressions Head CT 08/26/16 0000 Signed Impressions: Service Date/Time: Friday, August 26, 2016 15:41 - CONCLUSION: 1. Large intraparenchymal hemorrhage in the left basal ganglia with extension into left lateral ventricle. 2. Surrounding edema and mild midline shift to the right. Frederick Zaldivar MD Chest X-Ray 08/26/16 0000 Signed Impressions: Service Date/Time: Friday, August 26, 2016 14:37 - CONCLUSION: 1. Status post intubation with the endotracheal tube tip approximately 5 cm above the chela. 2. Midinspiratory study with crowding of the lung vasculature. Frederick Zaldivar MD Objective Remarks GENERAL: Middle-aged male, tracheally intubated SKIN: Warm, dry. HEAD: Atraumatic. Normocephalic. Ventric draining, being challenged now.. EYES:. No conjunctival icterus. No injection or drainage. NECK: Trachea midline. Trach with mild erythema, dry. CARDIOVASCULAR: Regular rate and rhythm. No m,r. No JVD. RESPIRATORY: Clear to auscultation. Breath sounds equal bilaterally. mechanically ventilated. Tolerating T-piece. GASTROINTESTINAL: Abdomen soft, non-tender, nondistended. no guarding. BS active. MUSCULOSKELETAL: Extremities without peripheral edema.Warm, well perfused. NEUROLOGICAL: Flaccid right upper extremity, appears to localize with left upper extremity and slightly withdraws lower extremities to pain. More aggressive with left arm. A/P Assessment and Plan Assessment: middle-aged male with large left basal ganglia ICH. His ICH score is 2, giving him an estimated 37% 30-day mortality. MRI, however, is positive for a number of other small hemorrhages which neurosurgery think may be related to possible amyloid angiopathy, and likely his prognosis is much poorer than initially estimated. His course was complicated by acute hypoxic and hypercarbic respiratory failure. Neuro/Psych: Left basal ganglia intraparenchymal hemorrhage s/p Right frontal ventriculostomy placement 08/[address] head revealed left basal ganglia intraparenchymal hemorrhage 3.42 cm with extension to lateral ventricle, midline shift 5 mm to the right. Neurosurgery/Dr. Croft. Right frontal twist drill hole ventriculostomy. Neuro checks q1h Goal systolic blood pressure less than 140 continue to keep Na 145-150 Keppra 500 IV every 12 hours each prophylaxis 7 days ICP currently well controlled -- EEG 08/30: generalized slowing, no seizure activity. CV: Hypertensive emergency Currently off Cardene drip continue amlodipine 10mg po daily continue labetalol 400mg po q8h continue hydralazine 50mg po q8hr. goal SBP < 140. Hydralazine 100 tid, lisinopril 20 po bid, lopressor 100 bid. catapres 0.3 bid. Stop labetalol. Resp: Acute hypoxic and hypercarbic respiratory failure PRVC Ventilator bundle As needed bronchodilator therapy Spontaneous breathing trials when clinically indicated, and cleared by neurosurgery, does not meet criteria today. wean fio2 for goal spo2 > 90%. HOB at 30 degrees. CPAP extended trials -> flow by GI: Acute Protein Calorie Malnutrition-mild Constipation Tube feeds with Jevity, having BM Protonix for GI prophylaxis Colace/as needed Senokot for bowel regimen. goal daily bowel movements. : Izaguirre for accurate I/Os. Endo: Hyperglycemia of Critical Illness Sliding-scale insulin with Accu-Cheks every 4 hours to maintain euglycemia. Low regimen Renal: Intravascular hypervolemia Monitor renal function closely Resolved Heme: daily CBC. ID: Monitor for infection FEN: Hypokalemia Replace per ICU electrolyte protocol. MSK: PT evaluate and treat Access - izaguirre Prophylaxis - GI - Protonix - DVT - SCD Overall impression: Tracheostomy placed. BP meds still being adjusted. Diuretics stopped. New fever worrisome, cultures indicate UTI webb-sensitive, improved fever curve. Tolerating T-piece, transfer soon. Jonny Samuels MD Sep 13, 2016 16:09
[2016-09-13] MEDS: hydrALAZINE HCL 20 MG/ML VIAL IV PUSH PRN (17:33)
[2016-09-14] VITALS (14 sets, daily range): BP systolic 128–170; BP diastolic 70–81; PULSE 60–74; RESP 12–22; TEMP 98.2–98.8; O2SAT 96–100
[2016-09-14] MEDS: CHLORHEXIDINE GLUCONATE 2 % 1 PACK (2 CLOTHS) TOP SCH (03:08)
[2016-09-14] MEDS: INSULIN NovoLIN REGULAR SUPPLEMENTAL SCALE SQ SCH ×5 (03:08→19:59)
[2016-09-14] MEDS: FREE WATER G-TUBE SCH ×3 (04:00→20:00)
[2016-09-14] MEDS: hydrALAZINE HCL 100 MG TAB PO SCH ×3 (04:24→20:20)
[2016-09-14] MEDS: CHLORHEXIDINE 0.12% (ORAL KIT) 15 ML CUP MT SCH ×2 (08:00→19:59)
[2016-09-14] MEDS: JUVEN POWDER 1 PACK G-TUBE SCH ×2 (08:48→20:22)
[2016-09-14] MEDS: FAMOTIDINE 20 MG TAB NG SCH ×2 (08:48→20:21)
[2016-09-14] MEDS: ARTIFICIAL TEARS OPTH SOLN 15 ML BTL EACH EYE SCH ×3 (08:48→17:16)
[2016-09-14] MEDS: SODIUM CHLORIDE 0.9% FLUSH 5 ML FLUSH IVF SCH (08:48)
[2016-09-14] MEDS: cloNIDine HCL 0.3 MG TAB PO SCH ×2 (08:48→20:20)
[2016-09-14] MEDS: BENEPROTEIN POWDER 1 PACK G-TUBE SCH ×3 (08:48→17:16)
[2016-09-14] MEDS: SODIUM CHLORIDE 0.9% FLUSH 5 ML FLUSH IV FLUSH SCH ×2 (08:48→20:22)
[2016-09-14] MEDS: DOCUSATE SODIUM 100 MG CAP PO SCH ×2 (08:49→20:20)
[2016-09-14] MEDS: LACTULOSE SYRUP 20 GM/30 ML CUP PO SCH ×2 (08:49→20:20)
[2016-09-14] MEDS: LISINOPRIL 20 MG TAB PO SCH ×2 (08:49→20:21)
[2016-09-14] MEDS: BISACODYL 10 MG SUPP RECTAL SCH (08:49)
[2016-09-14] MEDS: POLYETHYLENE GLYCOL 17 GM PKG PO SCH ×2 (08:49→20:20)
[2016-09-14] MEDS: METOPROLOL TARTRATE 50 MG TAB PO SCH ×2 (08:49→20:21)
--- NOTE | 2016-09-14 09:41 | HHI.NSPN ---
(Katelyn Tovar) Note Status Status: Progress Note (Katelyn Tovar) Interval History Interval History This is a middle-aged gentleman who apparently was brought to [facility] Emergency Room with acute onset of right-sided weakness and slurred speech. He was hypertensive on presentation and had a declining neurologic examination requiring intubation for airway control with ventilator support. CT scan of the head obtained reveals a basal ganglia hemorrhage on the left side measuring about 3.4 cm in diameter. There is also extension of the hemorrhage into the left lateral ventricle. No hydrocephalus is noted, although left temporal horn is dilated. Currently there is no friends or family members here to relate a history and his identity is unknown. 08/27/16: Pt sedated on Diprivan. Not opening eyes. Not following commands. Pupils 2mm bilaterally slight reaction bilaterally. 08/28/16: Pt sedated on Diprivan. Not opening eyes. Pupils 2mm bilaterally slight brisk reaction. Not following commands. 08/29/16: Pt sedated with Diprivan and Fentanyl drips. Not opening eyes. Pupils 2mm bilaterally slight brisk reaction. Not following commands. 09/01/16: Pt off sedation. Not opening eyes. Pupils 3mm bilaterally reactive. Not following commands. Ventriculostomy in place. ICP 18 after stimulation. 09/02/16: Pt off sedation. Not opening eyes to pain. Pupils 3mm bilaterally reactive bilaterally. Not following commands. ICP 11 with ventriculostomy drain at [id number]. 09/03/16: Pt off sedative drips. Not opening eyes. Ventriculostomy drain clamped, reportedly had to be opened multiple times last night. Currently tolerating clamping since 730am. 09/04/16: Pt not opening eyes. Pupils 4mm bilaterally reactive bilaterally. Not following commands. Withdraws UEs to pain. Localizes with LUE to pain in upper chest. 09/05/16: Pt not opening eyes. Pupils 4mm bilaterally reactive bilaterally. Not following commands. Spontaneously moves LUE. Localizes to pain with LUE. Right hemiparesis but withdraws to pain. 09/06/16: Pt not opening eyes. Off sedation. Pupils 4mm bilaterally reactive bilaterally. Not following commands. spontaneously moves LUE. Localizes to pain with LUE. Right hemiparesis. 09/07/16: Pt not opening eyes. No sedation. Pupils 4mm bilaterally, reactive bilaterally. Not following commands. right hemiparesis. Spontaneous movement in LUE and localizes to pain with LUE. 09/08/16: Pt not opening eyes. Pupils 4mm bilaterally. Ventriculostomy had been clamped several times last night but has to be reopened for elevated ICPs. Currently Ventriculostomy at [id number] ICP 19-20. 09/09/16: Pt not opening eyes. Pupils 4mm bilaterally, reactive bilaterally. Ventriculostomy drain at [id number] with bloody CSF drainage. ICPs 9. 09/10/16: Pt not opening eyes. Pupils 4mm bilaterally reactive bilaterally. Ventriculostomy drain at [id number] with bloody CSF drainage. ICP 14. 09/11/16: Pt not opening eyes. Pupils 2mm bilaterally reactive bilaterally. Ventriculostomy drain at [id number] with old bloody CSF drainage. ICP 13-14. 09/12/16: Pt opening eyes today to stimulation. Not following commands. 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 Right hemiparesis. 09/13: challenging ventriculostomy drain, at 20 cm H20 with normal ICPs. opens eyes, moves left uppers 09/14: a few hours following clamping yesterday, ICPs upto 25, EVD reopened, ICPs in the mid teens (Katelyn Tovar) Labs, Micro, & Vital Signs Results Date Time Temp Pulse Resp B/P Pulse Ox O2 Delivery O2 Flow Rate FiO2 09/14/16 09:37 100 T-piece 35 09/14/16 06:00 72 09/14/16 04:00 67 09/14/16 04:00 35 09/14/16 04:00 98.4 67 12 151/76 100 09/14/16 02:00 65 09/14/16 00:00 98.8 68 16 149/76 98 09/14/16 00:00 68 09/14/16 00:00 35 09/13/16 22:00 71 09/13/16 21:28 98 T-piece 6.00 09/13/16 20:00 98.5 82 16 143/75 99 09/13/16 20:00 83 09/13/16 20:00 35 09/13/16 18:00 76 09/13/16 16:00 35 09/13/16 16:00 66 09/13/16 16:00 99.0 70 20 154/79 99 09/13/16 14:00 69 09/13/16 13:00 99 T-piece 35 09/13/16 12:12 99 35 09/13/16 12:00 98.8 67 22 136/73 99 09/13/16 12:00 64 09/13/16 12:00 35 09/13/16 10:00 62 09/14/16 07:00 Intake Total 1835 ml Output Total 2405 ml Balance -570 ml Constitutional Vital Signs Date Time Temp Pulse Resp B/P Pulse Ox O2 Delivery O2 Flow Rate FiO2 09/14/16 09:37 100 T-piece 35 09/14/16 06:00 72 09/14/16 04:00 67 09/14/16 04:00 35 09/14/16 04:00 98.4 67 12 151/76 100 09/14/16 02:00 65 09/14/16 00:00 98.8 68 16 149/76 98 09/14/16 00:00 68 09/14/16 00:00 35 09/13/16 22:00 71 09/13/16 21:28 98 T-piece 6.00 09/13/16 20:00 98.5 82 16 143/75 99 09/13/16 20:00 83 09/13/16 20:00 35 09/13/16 18:00 76 09/13/16 16:00 35 09/13/16 16:00 66 09/13/16 16:00 99.0 70 20 154/79 99 09/13/16 14:00 69 09/13/16 13:00 99 T-piece 35 09/13/16 12:12 99 35 09/13/16 12:00 98.8 67 22 136/73 99 09/13/16 12:00 64 09/13/16 12:00 35 09/13/16 10:00 62 09/14/16 07:00 Intake Total 1835 ml Output Total 2405 ml Balance -570 ml (Katelyn Tovar) Review of Systems/Exam Exam Mildly opens eyes, does not follow commands. Spontaneously moves left upper Right ventriculostomy drain in place at 20 cm H20, CSF dark red. ICPs = 13 CN: pupils equal, left lateral gaze, there is right hemineglect Neck: tracheostomy Sensorimotor: moving left arm intermittently, withdraws left lower extremity to local pain, dense right hemiparesis Plantars equivocal b/l Cerebellar: exam cannot be assessed due to clinical condition (Katelyn Tovar) Medications Current Medications Current Medications Medications (Trade) Dose Ordered Sig/Mc Route PRN Reason Start Time Stop Time Status Last Admin Dose Admin IV Flush (NS Flush) DAILY IVF 08/27/16 09:00 09/14/16 08:48 IV Flush UNSCH PRN IVF SEE PROTOCOL 08/26/16 18:45 Potassium Chloride 100 ml @ 50 mls/hr Q2H PRN IV For Potassium 2.8 - 3.2 mEq/L 08/26/16 18:45 09/02/16 12:43 Potassium Chloride (KCl 20 Meq Premix Inj) 100 ml @ 50 mls/hr Q2H PRN IV For Potassium 2.8 - 3.2 mEq/L 08/26/16 18:45 09/06/16 15:46 Potassium Chloride 40 meq 40 meq UNSCH PRN PO/TUBE For Potassium 3.3 - 3.5 mEq/L 08/26/16 18:45 09/12/16 05:07 Potassium Chloride 100 ml @ 25 mls/hr UNSCH PRN IV For Potassium 3.3 - 3.5 mEq/L 08/26/16 18:45 08/31/16 06:35 Potassium Chloride 100 ml @ 50 mls/hr Q2H PRN IV For Potassium 3.3 - 3.5 mEq/L 08/26/16 18:45 08/28/16 06:15 Magnesium Sulfate/ Sodium Chloride (Magnesium Sulfate Inj/NS Inj) 100 ml @ 50 mls/hr UNSCH PRN IV For Magnesium 0.9 - 1.1 mg/dL 08/26/16 18:45 Magnesium Oxide 800 mg 800 mg UNSCH PRN PO For Magnesium 1.2 - 1.6 mg/dL 08/26/16 18:45 Magnesium Sulfate/ Sodium Chloride (Magnesium Sulfate Inj/NS Inj) 100 ml @ 50 mls/hr UNSCH PRN IV For Magnesium 1.2 - 1.6 mg/dL 08/26/16 18:45 Potassium Phosphate 2000 mg 2,000 mg Q4H PRN PO For Phosphorus < 2.5 mg/dL 08/26/16 18:45 Sodium Phosphate/ Sodium Chloride (Sodium Phosphate Inj/NS 250 ml Inj) 250 ml @ 42 mls/hr UNSCH PRN IV For Phosphorus < 2.5 mg/dL 08/26/16 18:45 Potassium Chloride (KCl 40 Meq/30 ml Liq) 40 meq UNSCH PRN PO/TUBE SEE LABEL COMMENTS 08/26/16 18:45 09/06/16 14:26 Potassium Phosphate 2000 mg 2,000 mg UNSCH PRN PO/TUBE SEE LABEL COMMENTS 08/26/16 18:45 Potassium Phosphate/Sodium Chloride (Potassium Phosphate Inj/NS 250 ml Inj) 260 ml @ 42 mls/hr UNSCH PRN IV SEE LABEL COMMENTS 08/26/16 18:45 08/27/16 23:57 Dextrose (D50w (Vial) Inj) 25 ml UNSCH PRN IV PUSH HYPOGLYCEMIA-SEE COMMENTS 08/26/16 18:45 Glucagon (Glucagon Inj) 1 mg UNSCH PRN OTHER HYPOGLYCEMIA-SEE COMMENTS 08/26/16 18:45 Insulin Human Regular (NovoLIN R SUPPLEMENTAL SCALE) 1 Q4HR SQ 08/26/16 20:00 09/14/16 08:00 IV Flush (NS Flush) 2 ml UNSCH PRN IV FLUSH FLUSH AFTER USING IV ACCESS 08/26/16 18:45 IV Flush (NS Flush) 2 ml BID IV FLUSH 08/26/16 21:00 09/14/16 08:48 Acetaminophen (Tylenol) 650 mg Q6H PRN PO PAIN 1-10 AND/OR FEVER >101F 08/26/16 18:45 09/10/16 08:50 Artificial Tears (Tears Naturale Opth Soln) 1 drop TID EACH EYE 08/27/16 09:00 09/14/16 08:48 Ondansetron HCl (Zofran Inj) 4 mg Q6H PRN IV NAUSEA OR VOMITING 08/26/16 18:45 Docusate Sodium (Colace) 100 mg BID PO 08/26/16 21:00 09/12/16 20:32 Sennosides (Senokot) 17.2 mg Q12H PRN PO CONSTIPATION 08/26/16 18:45 08/29/16 16:30 Miscellaneous Information 1 Q361D XX 08/26/16 18:45 Chlorhexidine Gluconate (Chlorhexidine 2% Cloth) Taper DAILY@04 TOP 08/27/16 04:00 08/23/17 03:59 09/14/16 03:08 Chlorhexidine Gluconate 3 pack 3 pack UNSCH PRN TOP HYGIENIC CARE 08/26/16 18:45 Fentanyl Citrate (fentaNYL DRIP) 250 ml @ 0 mls/hr TITRATE IV 08/26/16 18:45 08/31/16 02:41 Chlorhexidine Gluconate (Peridex 0.12% Liq) 15 ml BID@08,20 MT 08/26/16 20:00 09/14/16 08:00 Acetaminophen (Tylenol) 650 mg Q4H PRN PO PAIN SCALE 1 TO 10 08/26/16 18:45 09/13/16 06:05 Hydralazine HCl (Apresoline Inj) 10 mg Q30M PRN IV PUSH SBP>160, DBP>90 08/26/16 19:30 09/13/16 17:33 Arginine HCl (Zack Powder) 1 pack BID G-TUBE 08/27/16 21:00 09/14/16 08:48 Amlodipine Besylate (Norvasc) 10 mg DAILY PO 08/28/16 09:00 09/14/16 08:49 Labetalol HCl (Trandate Inj) 20 mg Q1H PRN IV SYS BP GREATER THAN 160 MMHG 08/28/16 15:45 09/08/16 04:37 Polyethylene Glycol (Miralax) 17 gm BID PO 08/29/16 21:00 09/13/16 08:06 Lactulose (Lactulose Liq) 30 ml BID PO 08/29/16 21:00 09/13/16 08:05 Bisacodyl (Dulcolax Supp) 10 mg DAILY RECTAL 08/30/16 09:45 09/13/16 08:46 Hydralazine HCl 100 mg 100 mg Q8HR PO 09/03/16 14:00 09/14/16 04:24 Propofol (Diprivan 1000 Mg/100ml Inj) 100 ml @ 0 mls/hr TITRATE IV 09/04/16 11:00 Lisinopril (Prinivil) 20 mg BID PO 09/05/16 21:00 09/14/16 08:49 Metoprolol Tartrate (Lopressor) 100 mg Q12HR PO 09/07/16 21:00 09/14/16 08:49 Protein 1 pack 1 pack TID G-TUBE 09/07/16 18:00 09/14/16 08:48 Ceftriaxone Sodium/Sodium Chloride (Rocephin Inj/NS Inj) 100 ml @ 200 mls/hr Q24H IV 09/10/16 13:00 09/13/16 12:27 Water (Free Water) 200 ml Q8H G-TUBE 09/11/16 20:00 09/14/16 04:00 Clonidine (Catapres) 0.3 mg Q12HR PO 09/11/16 21:00 09/14/16 08:48 Famotidine (Pepcid) 20 mg BID NG 09/11/16 21:00 09/14/16 08:48 (Katelyn Tovar) Medical Decision Making MDM Remarks 61 y/o male with left basal ganglia hemorrhage, intraventricular extension, s/p placement of ventriculostomy drain, elevated ICPs in the mid 20's following clamping, drain reopened (Katelyn Tovar) Plan Plan Remarks EVD reopened to 20 cm H20, cont current care dw nursing (Katelyn Tovar) Attending Statement The exam, history, and the medical decision-making described in the above note were completed with the assistance of the mid-level provider. I reviewed and agree with the findings presented. I attest that I had a [id number] encounter with the patient on the same day, and personally performed and documented my assessment and findings in the medical record. (London Couch MD) Katelyn Tovar Sep 14, 2016 09:41 London Couch MD Sep 14, 2016 19:33
[2016-09-14] MEDS: cefTRIAXone INJ 1,000 MG in SODIUM CHLORIDE 0.9% INJ 100 ML IV SCH (13:34)
[2016-09-14 17:43] LABS: BICARBONATE 29.8 MEQ/L (21.0-32.0)
--- NOTE | 2016-09-14 21:58 | HHI.PR ---
Subjective Remarks Late entry. Patient seen today around 3 PM. Responds to verbal stimuli, however nonverbal, noncommunicative. Objective Vital Signs Date Time Temp Pulse Resp B/P Pulse Ox O2 Delivery O2 Flow Rate FiO2 09/14/16 20:00 35 09/14/16 20:00 98.7 72 22 143/75 97 09/14/16 20:00 74 09/14/16 18:00 70 09/14/16 16:00 35 09/14/16 16:00 66 09/14/16 16:00 98.5 66 22 143/75 97 09/14/16 14:00 65 09/14/16 12:00 35 09/14/16 12:00 64 09/14/16 12:00 98.5 64 22 128/70 96 09/14/16 10:00 60 09/14/16 09:37 100 T-piece 35 09/14/16 08:00 35 09/14/16 08:00 98.2 68 12 170/81 99 09/14/16 08:00 72 09/14/16 06:00 72 09/14/16 04:00 67 09/14/16 04:00 35 09/14/16 04:00 98.4 67 12 151/76 100 09/14/16 02:00 65 09/14/16 00:00 98.8 68 16 149/76 98 09/14/16 00:00 68 09/14/16 00:00 35 09/13/16 22:00 71 I/O 09/13/16 09/13/16 09/13/16 09/14/16 09/14/16 09/14/16 07:00 15:00 23:00 07:00 15:00 23:00 Intake Total 831 ml 656 ml 537 ml 642 ml 1043 ml Output Total 376 ml 629 ml 994 ml 782 ml 742 ml Balance 455 ml 27 ml -457 ml -140 ml 301 ml Intake IV Total 45 ml 135 ml 33 ml 42 ml 111 ml Tube Feeding 386 ml 321 ml 304 ml 400 ml 432 ml Other 400 ml 200 ml 200 ml 200 ml 500 ml Output Urine Total 350 ml 600 ml 950 ml 750 ml 700 ml Drainage Total 26 ml 29 ml 44 ml 32 ml 42 ml # Voids 1 # Bowel Movements 0 1 0 0 0 Result Diagram: 09/11/16 0327 09/14/16 1644 Objective Remarks GENERAL: Response to verbal stimuli, however is nonverbal. Does not obey commands. Makes eye contact. SKIN: Warm and dry. HEAD: Normocephalic. EYES: No scleral icterus. No injection or drainage. NECK: Supple, trachea midline. No JVD CARDIOVASCULAR: Regular rate and rhythm without murmurs, gallops, or rubs. RESPIRATORY: Breath sounds equal bilaterally. No accessory muscle use. GASTROINTESTINAL: Abdomen soft, non-tender, nondistended. MUSCULOSKELETAL: No cyanosis, or edema. BACK: Nontender without obvious deformity. No CVA tenderness. A/P Assessment and Plan ==== 09/14/16 Neurosurgery continues to monitor ICpressures. Continues on ceftriaxone for staph pneumonia, Escherichia coli UTI stop date 09/18 Tracheostomy T piece. Consult pulmonology for further management. 61-year-old male with left basal ganglia hemorrhage, intraventricular extension test post placement of ventriculostomy drain. Elevated ICPs. Neurosurgery following. Hospital course was complicated by acute hypoxic and hypercarbic respiratory failure, as well as staph pneumonia, Escherichia coli UTI. Tracheostomy in place, tolerating T piece 09/13. Neuro/Psych: //Left basal ganglia intraparenchymal hemorrhage //s/p Right frontal ventriculostomy placement 08/26 //Possible amyloid angiopathy CT head revealed left basal ganglia intraparenchymal hemorrhage 3.42 cm with extension to lateral ventricle, midline shift 5 mm to the right. Neurosurgery/Dr. Croft. Right frontal twist drill hole ventriculostomy. Neuro checks q1h Goal systolic blood pressure less than 140 continue to keep Na 145-150 Keppra 500 IV every 12 hours each prophylaxis 7 days ICP currently well controlled -- EEG 08/30: generalized slowing, no seizure activity. -Neurosurgery continues to manage. Appreciate assistance. CV: //Hypertensive emergency -Initially managed with Cardizem drip. Resolved. Continue Hydralazine 100 tid, lisinopril 20 po bid, lopressor 100 bid. catapres 0.3 bid. Resp: //Acute hypoxic and hypercarbic respiratory failure -On tracheostomy, tolerating T piece on 09/13. Consult pulmonology for ongoing management. GI: //Acute Protein Calorie Malnutrition-mild //Constipation Tube feeds with Jevity, having BM Protonix for GI prophylaxis Colace/as needed Senokot for bowel regimen. goal daily bowel movements. : [place] for accurate I/Os. Endo: //Hyperglycemia of Critical Illness. Controlled Sliding-scale insulin with Accu-Cheks 3 times a day hours to maintain euglycemia. Low regimen Heme: daily CBC. ID: //[id number] //Staph pneumonia Continue ceftriaxone. Stop date 09/18 FEN: //Hypokalemia. Resolved. Monitor. Prophylaxis - GI - Protonix - DVT - SCD Discharge Planning Ongoing management by neurosurgery for intracranial hemorrhage. Jorge Cai MD Sep 14, 2016 21:58
[2016-09-15] VITALS (14 sets, daily range): BP systolic 113–158; BP diastolic 63–86; PULSE 64–77; RESP 16–23; TEMP 98.6–99.9; O2SAT 95–98
[2016-09-15] MEDS: CHLORHEXIDINE GLUCONATE 2 % 1 PACK (2 CLOTHS) TOP SCH (03:51)
[2016-09-15] MEDS: FREE WATER G-TUBE SCH ×3 (04:00→20:17)
[2016-09-15] MEDS: hydrALAZINE HCL 100 MG TAB PO SCH ×3 (04:31→20:19)
[2016-09-15 04:33] LABS: AUTOMATED NEUTROPHIL # 6.7 TH/MM3 (1.8-7.7); BASOPHIL # 0.1 TH/MM3 (0-0.2); EOSINOPHIL # 0.4 TH/MM3 (0-0.4); EOSINOPHIL % 4.7 % (0.0-4.0); HEMATOCRIT 32.8 % (39.0-51.0); LYMPH % 12.4 % (9.0-44.0); LYMPHOCYTE # 1.1 TH/MM3 (1.0-4.8); MEAN CELL VOLUME 94.2 FL (80.0-100.0); MEAN CORPUSCULAR HEMOGLOBIN 31.9 PG (27.0-34.0); MEAN CORPUSCULAR HGB CONC 33.8 % (32.0-36.0); MONO % 6.9 % (0.0-8.0); PLATELET COUNT 469 TH/MM3 (150-450); RED BLOOD COUNT 3.48 MIL/MM3 (4.50-5.90); RED CELL DISTRIBUTION WIDTH 12.4 % (11.6-17.2); WHITE BLOOD COUNT 8.9 TH/MM3 (4.0-11.0)
[2016-09-15 04:36] LABS: HEMO FLAGS AUTO DIFF
[2016-09-15 04:55] LABS: BICARBONATE 27.7 MEQ/L (21.0-32.0); MAGNESIUM 2.5 MG/DL (1.5-2.5); POTASSIUM 3.9 MEQ/L (3.5-5.1)
[2016-09-15] MEDS: INSULIN ASPART SUPPLEMENTAL SCALE SQ SCH ×4 (05:37→20:44)
[2016-09-15 07:12] LABS: PLATELET ESTIMATE SMEAR HIGH (NORMAL); PLATELET MORPHOLOGY ENLARGED (NORMAL); SCAN/DIFF AUTO DIFF CONFIRMED
[2016-09-15] MEDS: SODIUM CHLORIDE 0.9% FLUSH 5 ML FLUSH IVF SCH (09:00)
[2016-09-15] MEDS: DOCUSATE SODIUM 100 MG CAP PO SCH ×2 (09:00→20:18)
[2016-09-15] MEDS: LACTULOSE SYRUP 20 GM/30 ML CUP PO SCH ×2 (09:00→20:18)
[2016-09-15] MEDS: POLYETHYLENE GLYCOL 17 GM PKG PO SCH ×2 (09:00→20:18)
[2016-09-15] MEDS: BISACODYL 10 MG SUPP RECTAL SCH (09:00)
[2016-09-15] MEDS: ARTIFICIAL TEARS OPTH SOLN 15 ML BTL EACH EYE SCH ×3 (09:15→17:21)
[2016-09-15] MEDS: SODIUM CHLORIDE 0.9% FLUSH 5 ML FLUSH IV FLUSH SCH ×2 (09:15→20:18)
[2016-09-15] MEDS: JUVEN POWDER 1 PACK G-TUBE SCH ×2 (09:15→20:18)
[2016-09-15] MEDS: CHLORHEXIDINE 0.12% (ORAL KIT) 15 ML CUP MT SCH ×2 (09:15→20:17)
[2016-09-15] MEDS: BENEPROTEIN POWDER 1 PACK G-TUBE SCH ×3 (09:15→17:21)
[2016-09-15] MEDS: FAMOTIDINE 20 MG TAB NG SCH ×2 (09:16→20:18)
[2016-09-15] MEDS: METOPROLOL TARTRATE 50 MG TAB PO SCH ×2 (09:16→20:18)
[2016-09-15] MEDS: LISINOPRIL 20 MG TAB PO SCH ×2 (09:16→20:18)
[2016-09-15] MEDS: cloNIDine HCL 0.3 MG TAB PO SCH ×2 (09:16→20:18)
--- NOTE | 2016-09-15 09:18 | HHI.NSPN ---
(Sergey Melton) History Chief Complaint: Left basal ganglia hemorrhage (Sergey Melton) Interval History This is a middle-aged gentleman who apparently was brought to [facility] Emergency Room with acute onset of right-sided weakness and slurred speech. He was hypertensive on presentation and had a declining neurologic examination requiring intubation for airway control with ventilator support. CT scan of the head obtained reveals a basal ganglia hemorrhage on the left side measuring about 3.4 cm in diameter. There is also extension of the hemorrhage into the left lateral ventricle. No hydrocephalus is noted, although left temporal horn is dilated. Currently there is no friends or family members here to relate a history and his identity is unknown. 08/27/16: Pt sedated on Diprivan. Not opening eyes. Not following commands. Pupils 2mm bilaterally slight reaction bilaterally. 08/28/16: Pt sedated on Diprivan. Not opening eyes. Pupils 2mm bilaterally slight brisk reaction. Not following commands. 08/29/16: Pt sedated with Diprivan and Fentanyl drips. Not opening eyes. Pupils 2mm bilaterally slight brisk reaction. Not following commands. 09/01/16: Pt off sedation. Not opening eyes. Pupils 3mm bilaterally reactive. Not following commands. Ventriculostomy in place. ICP 18 after stimulation. 09/02/16: Pt off sedation. Not opening eyes to pain. Pupils 3mm bilaterally reactive bilaterally. Not following commands. ICP 11 with ventriculostomy drain at [id number]. 09/03/16: Pt off sedative drips. Not opening eyes. Ventriculostomy drain clamped, reportedly had to be opened multiple times last night. Currently tolerating clamping since 730am. 09/04/16: Pt not opening eyes. Pupils 4mm bilaterally reactive bilaterally. Not following commands. Withdraws UEs to pain. Localizes with LUE to pain in upper chest. 09/05/16: Pt not opening eyes. Pupils 4mm bilaterally reactive bilaterally. Not following commands. Spontaneously moves LUE. Localizes to pain with LUE. Right hemiparesis but withdraws to pain. 09/06/16: Pt not opening eyes. Off sedation. Pupils 4mm bilaterally reactive bilaterally. Not following commands. spontaneously moves LUE. Localizes to pain with LUE. Right hemiparesis. 09/07/16: Pt not opening eyes. No sedation. Pupils 4mm bilaterally, reactive bilaterally. Not following commands. right hemiparesis. Spontaneous movement in LUE and localizes to pain with LUE. 09/08/16: Pt not opening eyes. Pupils 4mm bilaterally. Ventriculostomy had been clamped several times last night but has to be reopened for elevated ICPs. Currently Ventriculostomy at [id number] ICP 19-20. 09/09/16: Pt not opening eyes. Pupils 4mm bilaterally, reactive bilaterally. Ventriculostomy drain at [id number] with bloody CSF drainage. ICPs 9. 09/10/16: Pt not opening eyes. Pupils 4mm bilaterally reactive bilaterally. Ventriculostomy drain at [id number] with bloody CSF drainage. ICP 14. 09/11/16: Pt not opening eyes. Pupils 2mm bilaterally reactive bilaterally. Ventriculostomy drain at [id number] with old bloody CSF drainage. ICP 13-14. 09/12/16: Pt opening eyes today to stimulation. Not following commands. Spontaneously collar feller left hand. Right hemiparesis. 09/15/16: Pt opening eyes slightly to stimulation. Not following commands. Attempts to localize with LUE to pain in upper chest. Right hemiparesis. ( Sergey Melton) System Review Comments Not able to obtain given level of alertness and clinical condition. (Sergey Melton) Exam Results Vital Signs Date Time Temp Pulse Resp B/P Pulse Ox O2 Delivery O2 Flow Rate FiO2 09/15/16 07:51 98 T-piece 6.00 28 09/15/16 06:00 70 09/15/16 04:00 98.6 21 150/80 Intake and Output 09/14/16 09/14/16 09/15/16 08:00 16:00 00:00 Intake Total 642 ml 1043 ml 629 ml Output Total 782 ml 742 ml 796 ml Balance -140 ml 301 ml -167 ml (Sergey Melton) Physical Examination Resp: Trach in place. On humidified O2. Heart: NSR no murmurs Abd: Soft positive bs Skin: No signs of infection at ventriculostomy site. Muscle: Right hemiparesis. Attempts to localize with LUE to pain in upper chest. Neuro: Pt opens eyes slightly to pain. Pupils 3mm bilaterally reactive bilaterally. Not following commands. Ventriculostomy drain in place. ICPs 16- 19 at [id number]. (Sergey Melton) Lab, Micro, Other Results Last Impressions Head CT 09/08/16 0600 Signed Impressions: Service Date/Time: Thursday, September 08, 2016 04:42 - CONCLUSION: 1. 3.6 cm left basal ganglia hemorrhage with extension into the lateral ventricles. There is surrounding mass effect. These changes are stable compared to the prior exam. 2. Small vessel ischemic change in the white matter. Rakesh Ramirez MD Chest X-Ray 09/08/16 0000 Signed Impressions: Service Date/Time: Thursday, September 08, 2016 09:14 - CONCLUSION: Clearing of right basilar opacity. Persistent opacity infiltrate or atelectasis in the left base Sergio Moody MD Head Magnetic Resonance Angiography 08/27/16 0000 Signed Impressions: Service Date/Time: Saturday, August 27, 2016 16:49 - CONCLUSION: Negative MRA of the brain. Vargas Freitas MD FACR Brain MRI 08/27/16 0000 Signed Impressions: Service Date/Time: Saturday, August 27, 2016 16:49 - CONCLUSION: 1. Large thalamic hemorrhage as described above. Extensive periventricular white matter changes are noted. There is compression of the third ventricle. Ventriculostomy is seen in the right lateral ventricle. 2. Hemorrhage does extend down the white matter tracts to the level of the right cerebral peduncle. Vargas Freitas MD FACR Laboratory Tests Test 09/14/16 09/15/16 16:44 03:35 Sodium Level 140 MEQ/L 139 MEQ/L Potassium Level 4.0 MEQ/L 3.9 MEQ/L Chloride Level 104 MEQ/L 103 MEQ/L Carbon Dioxide Level 29.8 MEQ/L 27.7 MEQ/L Anion Gap 6 MEQ/L 8 MEQ/L Blood Urea Nitrogen 25 MG/DL 26 MG/DL Creatinine 0.65 MG/DL 0.68 MG/DL Estimat Glomerular Filtration 125 ML/MIN 119 ML/MIN Rate Random Glucose 141 MG/DL 179 MG/DL Calcium Level 9.5 MG/DL 9.7 MG/DL White Blood Count 8.9 TH/MM3 Red Blood Count 3.48 MIL/MM3 Hemoglobin 11.1 GM/DL Hematocrit 32.8 % Mean Corpuscular Volume 94.2 FL Mean Corpuscular Hemoglobin 31.9 PG Mean Corpuscular Hemoglobin 33.8 % Concent Red Cell Distribution Width 12.4 % Platelet Count 469 TH/MM3 Mean Platelet Volume 11.1 FL Neutrophils (%) (Auto) 75.0 % Lymphocytes (%) (Auto) 12.4 % Monocytes (%) (Auto) 6.9 % Eosinophils (%) (Auto) 4.7 % Basophils (%) (Auto) 1.0 % Neutrophils # (Auto) 6.7 TH/MM3 Lymphocytes # (Auto) 1.1 TH/MM3 Monocytes # (Auto) 0.6 TH/MM3 Eosinophils # (Auto) 0.4 TH/MM3 Basophils # (Auto) 0.1 TH/MM3 CBC Comment AUTO DIFF Differential Comment AUTO DIFF CONFIRMED Platelet Estimate HIGH Platelet Morphology Comment ENLARGED Phosphorus Level 3.0 MG/DL Magnesium Level 2.5 MG/DL Albumin 2.6 GM/DL 09/14/16 09/14/16 09/15/16 15:00 23:00 07:00 Intake Total 1043 ml 629 ml 610 ml Output Total 742 ml 796 ml 626 ml Balance 301 ml -167 ml -16 ml Intake IV Total 111 ml 109 ml 40 ml Tube Feeding 432 ml 320 ml 370 ml Other 500 ml 200 ml 200 ml Output Urine Total 700 ml 750 ml 600 ml Drainage Total 42 ml 46 ml 26 ml # Bowel Movements 0 0 0 (Sergey Melton) Medical Decision Making Impression and Plan A: 61 y/o M with Left basal ganglia hemorrhage with intraventricular extension with mild hydrocephalus. This is a characteristic of a hypertensive bleed. 2. Unregulated hypertension. 3. Respiratory failure secondary to the intracranial hemorrhage. 4. Fevers 5. UTI gram - julia sensitive to abx 6. sputum staph aureus sensitive to abx. 7. Blood and CSF negative at 72 hours. PLAN Continue with ventriculostomy drain Continue with blood pressure control Continue with critical care- trach and vent. UTI gram - julia, continue with antibiotic sputum staph aureus continue with antibiotic. Blood and CSF negative at 72 hours. Continue with rehab efforts. (Sergey Melton) Attending Statement The exam, history, and the medical decision-making described in the above note were completed with the assistance of the mid-level provider. I reviewed and agree with the findings presented. I attest that I had a [id number] encounter with the patient on the same day, and personally performed and documented my assessment and findings in the medical record. Ventriculostomy CSF drainage the less bloody but not completely clear yet. We'll attempt another clamping trial. (Jeff Croft MD) Sergey Melton Sep 15, 2016 09:18 Jeff Croft MD Sep 15, 2016 15:35
[2016-09-15] MEDS: cefTRIAXone INJ 1,000 MG in SODIUM CHLORIDE 0.9% INJ 100 ML IV SCH (12:41)
[2016-09-15] MEDS: RESP: ALBUTEROL 2.5 MG/IPRATROPIUM 0.5 MG NEB (SCH) NEB (19:18)
--- NOTE | 2016-09-15 19:51 | HHI.PR ---
Subjective Remarks Patient seen today around 3 PM. Patient sleeping, wakes up. Opens eyes. Denies pain. Nursing reports no acute issues. Objective Vital Signs Date Time Temp Pulse Resp B/P Pulse Ox O2 Delivery O2 Flow Rate FiO2 09/15/16 18:00 77 09/15/16 16:00 71 09/15/16 16:00 99.8 74 18 137/73 96 09/15/16 14:00 72 09/15/16 12:00 99.9 64 19 113/63 95 09/15/16 12:00 64 09/15/16 10:00 75 09/15/16 08:00 99.6 70 23 158/86 97 09/15/16 08:00 35 09/15/16 08:00 73 09/15/16 07:51 98 T-piece 6.00 28 09/15/16 06:00 70 09/15/16 04:00 98.6 68 21 150/80 96 09/15/16 04:00 68 09/15/16 04:00 35 09/15/16 02:00 65 09/15/16 00:00 98.7 65 18 133/69 95 09/15/16 00:00 35 09/15/16 00:00 65 09/14/16 22:09 99 T-piece 6.00 28 09/14/16 22:00 68 09/14/16 20:00 35 09/14/16 20:00 98.7 72 22 143/75 97 09/14/16 20:00 74 I/O 09/14/16 09/14/16 09/14/16 09/15/16 09/15/16 09/15/16 07:00 15:00 23:00 07:00 15:00 23:00 Intake Total 642 ml 1043 ml 629 ml 610 ml 821 ml Output Total 782 ml 742 ml 796 ml 626 ml 440 ml Balance -140 ml 301 ml -167 ml -16 ml 381 ml Intake IV Total 42 ml 111 ml 109 ml 40 ml 146 ml Tube Feeding 400 ml 432 ml 320 ml 370 ml 475 ml Other 200 ml 500 ml 200 ml 200 ml 200 ml Output Urine Total 750 ml 700 ml 750 ml 600 ml 400 ml Drainage Total 32 ml 42 ml 46 ml 26 ml 40 ml # Bowel Movements 0 0 0 0 0 Result Diagram: 09/15/1633409/15/165 Objective Remarks GENERAL: Response to verbal stimuli, however is nonverbal. Does not obey commands. Makes eye contact.no appreciable change on exam SKIN: Warm and dry. HEAD: Normocephalic. EYES: No scleral icterus. No injection or drainage. NECK: Supple, trachea midline. No JVD CARDIOVASCULAR: Regular rate and rhythm without murmurs, gallops, or rubs. RESPIRATORY: Breath sounds equal bilaterally. No accessory muscle use. GASTROINTESTINAL: Abdomen soft, non-tender, nondistended. MUSCULOSKELETAL: No cyanosis, or edema. BACK: Nontender without obvious deformity. No CVA tenderness. A/P Assessment and Plan ==== 09/15/16 -Patient seen and examined. -No acute changes per nursing Neurosurgery continues to monitor ICpressures as before. Continues on ceftriaxone for staph pneumonia, Escherichia coli UTI stop date 09/18. Tracheostomy T piece. Follow-up pulmonology recommendations. Appreciate assistance. 61-year-old male with left basal ganglia hemorrhage, intraventricular extension test post placement of ventriculostomy drain. Elevated ICPs. Neurosurgery following. Hospital course was complicated by acute hypoxic and hypercarbic respiratory failure, as well as staph pneumonia, Escherichia coli UTI. Tracheostomy in place, tolerating T piece 09/13. Neuro/Psych: //Left basal ganglia intraparenchymal hemorrhage //s/p Right frontal ventriculostomy placement 08/26 //Possible amyloid angiopathy CT head revealed left basal ganglia intraparenchymal hemorrhage 3.42 cm with extension to lateral ventricle, midline shift 5 mm to the right. Neurosurgery/Dr. Croft. Right frontal twist drill hole ventriculostomy. Neuro checks q1h Goal systolic blood pressure less than 140 continue to keep Na 145-150 Keppra 500 IV every 12 hours each prophylaxis 7 days ICP currently well controlled -- EEG 08/30: generalized slowing, no seizure activity. -Neurosurgery continues to manage. Appreciate assistance. CV: //Hypertensive emergency -Initially managed with Cardizem drip. Resolved. Continue Hydralazine 100 tid, lisinopril 20 po bid, lopressor 100 bid. catapres 0.3 bid. Resp: //Acute hypoxic and hypercarbic respiratory failure -On tracheostomy, tolerating T piece on 09/13. Consult pulmonology for ongoing management. GI: //Acute Protein Calorie Malnutrition-mild //Constipation Tube feeds with Jevity, having BM Protonix for GI prophylaxis Colace/as needed Senokot for bowel regimen. goal daily bowel movements. : [place] for accurate I/Os. Endo: //Hyperglycemia of Critical Illness. Controlled Sliding-scale insulin with Accu-Cheks 3 times a day hours to maintain euglycemia. Low regimen Heme: daily CBC. ID: //[id number] //Staph pneumonia Continue ceftriaxone. Stop date 09/18 FEN: //Hypokalemia. Resolved. Monitor. Prophylaxis - GI - Protonix - DVT - SCD Discharge Planning Ongoing management by neurosurgery for intracranial hemorrhage. likely inpatient rehabilitation when cleared by neurosurgery. Jorge Cai MD Sep 15, 2016 19:51
[2016-09-16] VITALS (14 sets, daily range): BP systolic 109–166; BP diastolic 58–82; PULSE 61–88; RESP 17–29; TEMP 98.3–99.7; O2SAT 97–100
[2016-09-16] MEDS: FREE WATER G-TUBE SCH ×3 (03:22→17:28)
[2016-09-16] MEDS: CHLORHEXIDINE GLUCONATE 2 % 1 PACK (2 CLOTHS) TOP SCH (03:22)
[2016-09-16] MEDS: LABETALOL HCL 100 MG/20 ML VIAL IV PRN (04:35)
[2016-09-16 04:49] LABS: AUTOMATED NEUTROPHIL # 4.6 TH/MM3 (1.8-7.7); BASOPHIL # 0.1 TH/MM3 (0-0.2); BASOPHIL % 0.9 % (0.0-2.0); EOSINOPHIL # 0.4 TH/MM3 (0-0.4); EOSINOPHIL % 5.6 % (0.0-4.0); HEMATOCRIT 31.3 % (39.0-51.0); LYMPH % 17.8 % (9.0-44.0); LYMPHOCYTE # 1.2 TH/MM3 (1.0-4.8); MEAN CELL VOLUME 94.2 FL (80.0-100.0); MEAN CORPUSCULAR HEMOGLOBIN 32.5 PG (27.0-34.0); MEAN CORPUSCULAR HGB CONC 34.5 % (32.0-36.0); MONO % 9.5 % (0.0-8.0); NEUT % 66.2 % (16.0-70.0); PLATELET COUNT 436 TH/MM3 (150-450); RED BLOOD COUNT 3.32 MIL/MM3 (4.50-5.90); RED CELL DISTRIBUTION WIDTH 12.6 % (11.6-17.2); WHITE BLOOD COUNT 6.9 TH/MM3 (4.0-11.0)
[2016-09-16 04:59] LABS: HEMO FLAGS AUTO DIFF
[2016-09-16 05:14] LABS: BICARBONATE 31.3 MEQ/L (21.0-32.0); POTASSIUM 3.8 MEQ/L (3.5-5.1)
[2016-09-16] MEDS: INSULIN ASPART SUPPLEMENTAL SCALE SQ SCH ×4 (06:06→20:20)
[2016-09-16] MEDS: hydrALAZINE HCL 100 MG TAB PO SCH ×3 (06:06→22:09)
[2016-09-16 06:56] LABS: CORRECTED NUCLEATED RBC 1 /100 WBC (0-0); EOSINOPHILS 3 % (0-4); METAMYELOCYTES 1 % (0-1); MYELOCYTES 1 % (0-0); NEUTROPHIL # MANUAL DIFF 4.8 TH/MM3 (1.8-7.7); POLYS (SEG NEUTROPHILS) 67 % (16-70); WBC DIFF SAMPLE 100
[2016-09-16 06:57] LABS: PLATELET ESTIMATE SMEAR NORMAL (NORMAL); PLATELET MORPHOLOGY ENLARGED (NORMAL); SCAN/DIFF FINAL DIFF MANUAL
--- NOTE | 2016-09-16 07:19 | MB ---
cc: FAVIAN ESTRELLA DATE OF CONSULTATION 09/15/2016 REASON FOR CONSULTATION Tracheostomy management and respiratory failure. PRESENT ILLNESS This is a 61-year-old man with a history of acute onset of right upper and lower extremity weakness and dysarthria. He was brought to the emergency room. He was hypertensive and was poorly responsive and had to be intubated in the ER. The patient then had a CT of the head which showed a left intraparenchymal hemorrhage in the basil ganglia with extension into the lateral ventricle with a 5 mm shift to the right. Neurosurgery was consulted and the patient went for a right frontal ventriculostomy and was then placed on ventilator support and transferred to the intensive care unit. The patient had been on a Cardene infusion for his hypertension and ACT was monitored. He remained poorly responsive following the surgery and the patient was assisting the ventilator. Over the next three days, his neurologic function was not improving significantly and he had a dense right hemiplegia. The patient since then and has had a tracheostomy and a PEG tube and is presently weaned down to a T-collar at 30% FIO2. She has secretions in the trache and the tracheal aspirate grew MSSA and he has been on cefepime and vancomycin, but was started on ceftriaxone four days ago. The patient is also tolerating tube feedings and stable but still unresponsive to commands and stimuli. PAST HISTORY Past history is significant for hypertension. There is no family available to interview and no other details are obtained. Most of the information is from the present chart. PAST SURGICAL HISTORY Unknown HABITS Unknown ALLERGIES No drug allergies reported. REVIEW OF SYSTEMS The patient is unresponsive on a trache collar maintaining sats of 96-97. PHYSICAL EXAMINATION This is an averagely built middle-aged man who is poorly responsive on a trache collar. He has weakness of his right extremity. VITAL SIGNS: Blood pressure 140/75, pulse is 86, respirations 20, temperature 98.s. HEENT: Head normocephalic. Pupils sluggishly reactive. Throat has a few secretions. Ears, no inflammation. NECK: Supple without venous distension. No thyromegaly or lymphadenopathy. CHEST: Decreased breath sounds at the bases. Occasional crackles at the right base. HEART: The heart sounds are regular, S1-S2. No murmur. No S3. ABDOMEN: The abdomen is soft, nontender. Bowel sounds are faint. No organomegaly. EXTREMITIES: Weakness and muscle wasting of the right extremities. There is some edema of the arm. The patient does withdraw the left extremities to stimuli. Skin was dry and cool. RECTAL: Exam is deferred. IMPRESSION 1. Status post left basal ganglia intraparenchymal hemorrhage with the right frontal ventriculostomy placement. 2. Acute respiratory failure resolved. 3. Bibasilar atelectasis and pneumonia. 4. History of uncontrolled hypertension. 5. Right hemiplegia PLAN The patient has been placed on a trache collar at 28%, nebulized DuoNeb solution added b.i.d. frequent suctioning trache toilet to be done and the patient will be maintained on antibiotic coverage including ceftriaxone one gram daily for another five days. Tube feedings have been started at 50 cc and anti-hypertensive medications will be continued including amlodipine 10 mg per day. We will get a follow up chest x-ray this week and I will follow the case with you. Dr. Cai, thank you for this consultation. MD HOSSEIN Bernal/GUY /7:11 PM /7:07 AM
[2016-09-16] MEDS: RESP: ALBUTEROL 2.5 MG/IPRATROPIUM 0.5 MG NEB (SCH) NEB ×2 (07:43→20:42)
[2016-09-16] MEDS: CHLORHEXIDINE 0.12% (ORAL KIT) 15 ML CUP MT SCH ×2 (08:56→19:52)
[2016-09-16] MEDS: LACTULOSE SYRUP 20 GM/30 ML CUP PO SCH ×2 (09:00→19:53)
[2016-09-16] MEDS: POLYETHYLENE GLYCOL 17 GM PKG PO SCH ×2 (09:00→19:54)
[2016-09-16] MEDS: SODIUM CHLORIDE 0.9% FLUSH 5 ML FLUSH IVF SCH (09:00)
--- NOTE | 2016-09-16 09:10 | HHI.NSPN ---
(Sergey Melton) History Chief Complaint: Left basal ganglia hemorrhage (Sergey Melton) Interval History This is a middle-aged gentleman who apparently was brought to [facility] Emergency Room with acute onset of right-sided weakness and slurred speech. He was hypertensive on presentation and had a declining neurologic examination requiring intubation for airway control with ventilator support. CT scan of the head obtained reveals a basal ganglia hemorrhage on the left side measuring about 3.4 cm in diameter. There is also extension of the hemorrhage into the left lateral ventricle. No hydrocephalus is noted, although left temporal horn is dilated. Currently there is no friends or family members here to relate a history and his identity is unknown. 08/27/16: Pt sedated on Diprivan. Not opening eyes. Not following commands. Pupils 2mm bilaterally slight reaction bilaterally. 08/28/16: Pt sedated on Diprivan. Not opening eyes. Pupils 2mm bilaterally slight brisk reaction. Not following commands. 08/29/16: Pt sedated with Diprivan and Fentanyl drips. Not opening eyes. Pupils 2mm bilaterally slight brisk reaction. Not following commands. 09/01/16: Pt off sedation. Not opening eyes. Pupils 3mm bilaterally reactive. Not following commands. Ventriculostomy in place. ICP 18 after stimulation. 09/02/16: Pt off sedation. Not opening eyes to pain. Pupils 3mm bilaterally reactive bilaterally. Not following commands. ICP 11 with ventriculostomy drain at [id number]. 09/03/16: Pt off sedative drips. Not opening eyes. Ventriculostomy drain clamped, reportedly had to be opened multiple times last night. Currently tolerating clamping since 730am. 09/04/16: Pt not opening eyes. Pupils 4mm bilaterally reactive bilaterally. Not following commands. Withdraws UEs to pain. Localizes with LUE to pain in upper chest. 09/05/16: Pt not opening eyes. Pupils 4mm bilaterally reactive bilaterally. Not following commands. Spontaneously moves LUE. Localizes to pain with LUE. Right hemiparesis but withdraws to pain. 09/06/16: Pt not opening eyes. Off sedation. Pupils 4mm bilaterally reactive bilaterally. Not following commands. spontaneously moves LUE. Localizes to pain with LUE. Right hemiparesis. 09/07/16: Pt not opening eyes. No sedation. Pupils 4mm bilaterally, reactive bilaterally. Not following commands. right hemiparesis. Spontaneous movement in LUE and localizes to pain with LUE. 09/08/16: Pt not opening eyes. Pupils 4mm bilaterally. Ventriculostomy had been clamped several times last night but has to be reopened for elevated ICPs. Currently Ventriculostomy at 41hpO52 ICP 19-20. 09/09/16: Pt not opening eyes. Pupils 4mm bilaterally, reactive bilaterally. Ventriculostomy drain at [id number] with bloody CSF drainage. ICPs 9. 09/10/16: Pt not opening eyes. Pupils 4mm bilaterally reactive bilaterally. Ventriculostomy drain at 12shB37 with bloody CSF drainage. ICP 14. 09/11/16: Pt not opening eyes. Pupils 2mm bilaterally reactive bilaterally. Ventriculostomy drain at [id number] with old bloody CSF drainage. ICP 13-14. 09/12/16: Pt opening eyes today to stimulation. Not following commands. Spontaneously rolling machine tender left hand. Right hemiparesis. 09/15/16: Pt opening eyes slightly to stimulation. Not following commands. Attempts to localize with LUE to pain in upper chest. Right hemiparesis. 09/16/16: Pt opening eyes slightly. Not following commands. Right hemiparesis. Ventriculostomy clamped ICPs teens to occasional above 20 but less than 25. (Sergey Melton S. JAMES) System Review Comments Not able to obtain given clinical status. (Sergey Melton S. JAMES) Exam Results Vital Signs Date Time Temp Pulse Resp B/P Pulse Ox O2 Delivery O2 Flow Rate FiO2 09/16/16 07:43 100 T-piece 5.00 28 09/16/16 06:00 73 09/16/16 04:00 98.5 29 166/82 Intake and Output 09/15/16 09/15/16 09/16/16 08:00 16:00 00:00 Intake Total 610 ml 821 ml 578 ml Output Total 626 ml 440 ml 810 ml Balance -16 ml 381 ml -232 ml (Sergey Melton S. PA) Physical Examination Resp: Trach in place. CTA bilaterally. Heart: NSR no murmurs Abd: Soft positive bs Skin: No signs of infection at ventriculostomy site. Muscle: Right hemiparesis. Attempts to localize with LUE to pain in upper chest. Neuro: Pt opens eyes slightly to pain. Pupils 3mm bilaterally reactive bilaterally. Not following commands. Ventriculostomy drain in place. ICPs 16- 19 at [id number] clamped. Occasionally rise above 20 but not 25. (Sergey Melton) Lab, Micro, Other Results Laboratory Tests Test 09/16/16 03:55 White Blood Count 6.9 TH/MM3 Red Blood Count 3.32 MIL/MM3 Hemoglobin 10.8 GM/DL Hematocrit 31.3 % Mean Corpuscular Volume 94.2 FL Mean Corpuscular Hemoglobin 32.5 PG Mean Corpuscular Hemoglobin 34.5 % Concent Red Cell Distribution Width 12.6 % Platelet Count 436 TH/MM3 Mean Platelet Volume 10.9 FL Neutrophils (%) (Auto) 66.2 % Lymphocytes (%) (Auto) 17.8 % Monocytes (%) (Auto) 9.5 % Eosinophils (%) (Auto) 5.6 % Basophils (%) (Auto) 0.9 % Neutrophils # (Auto) 4.6 TH/MM3 Lymphocytes # (Auto) 1.2 TH/MM3 Monocytes # (Auto) 0.7 TH/MM3 Eosinophils # (Auto) 0.4 TH/MM3 Basophils # (Auto) 0.1 TH/MM3 CBC Comment AUTO DIFF Differential Total Cells 100 Counted Neutrophils % (Manual) 67 % Lymphocytes % 23 % Monocytes % 5 % Eosinophils % 3 % Neutrophils # (Manual) 4.8 TH/MM3 Metamyelocytes 1 % Myelocytes 1 % Nucleated Red Blood Cells 1 /100 WBC Differential Comment FINAL DIFF MANUAL Platelet Estimate NORMAL Platelet Morphology Comment ENLARGED Red Cell Morphology Comment NORMAL Sodium Level 139 MEQ/L Potassium Level 3.8 MEQ/L Chloride Level 103 MEQ/L Carbon Dioxide Level 31.3 MEQ/L Anion Gap 5 MEQ/L Blood Urea Nitrogen 26 MG/DL Creatinine 0.78 MG/DL Estimat Glomerular Filtration 101 ML/MIN Rate Random Glucose 199 MG/DL Calcium Level 8.9 MG/DL 09/15/16 09/15/16 09/16/16 15:00 23:00 07:00 Intake Total 821 ml 578 ml 598 ml Output Total 440 ml 810 ml 750 ml Balance 381 ml -232 ml -152 ml Intake IV Total 146 ml 37 ml 39 ml Tube Feeding 475 ml 341 ml 359 ml Other 200 ml 200 ml 200 ml Output Urine Total 400 ml 800 ml 750 ml Drainage Total 40 ml 10 ml 0 ml # Bowel Movements 0 0 0 (Sergey Melton) Medical Decision Making Impression and Plan A: 61 y/o M with 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 This is a characteristic of a hypertensive bleed. 2. Unregulated hypertension. 3. Respiratory failure secondary to the intracranial hemorrhage. 4. Fevers 5. UTI gram - julia sensitive to abx 6. sputum staph aureus sensitive to abx. 7. Blood and CSF negative at 72 hours. PLAN Continue with ventriculostomy drain- currently clamped and monitoring ICP. Continue with blood pressure control Continue with critical care UTI gram - julia, continue with antibiotic sputum staph aureus continue with antibiotic. Blood and CSF negative at 72 hours. Continue with rehab efforts. (Sergey Melton) Attending Statement The exam, history, and the medical decision-making described in the above note were completed with the assistance of the mid-level provider. I reviewed and agree with the findings presented. I attest that I had a [id number] encounter with the patient on the same day, and personally performed and documented my assessment and findings in the medical record. Tolerating ventriculostomy clamping. We'll obtain follow-up CT scan of the head tomorrow morning. (Jeff Croft MD) Sergey Melton Sep 16, 2016 09:09 Jeff Croft MD Sep 16, 2016 12:01
[2016-09-16] MEDS: METOPROLOL TARTRATE 50 MG TAB PO SCH ×2 (09:48→19:53)
[2016-09-16] MEDS: ARTIFICIAL TEARS OPTH SOLN 15 ML BTL EACH EYE SCH ×3 (09:48→17:28)
[2016-09-16] MEDS: FAMOTIDINE 20 MG TAB NG SCH ×2 (09:49→19:52)
[2016-09-16] MEDS: DOCUSATE SODIUM 100 MG CAP PO SCH ×2 (09:49→19:53)
[2016-09-16] MEDS: LISINOPRIL 20 MG TAB PO SCH ×2 (09:49→19:53)
[2016-09-16] MEDS: BISACODYL 10 MG SUPP RECTAL SCH (09:50)
[2016-09-16] MEDS: SODIUM CHLORIDE 0.9% FLUSH 5 ML FLUSH IV FLUSH SCH ×2 (09:52→19:52)
[2016-09-16] MEDS: JUVEN POWDER 1 PACK G-TUBE SCH ×2 (09:53→19:52)
[2016-09-16] MEDS: cloNIDine HCL 0.3 MG TAB PO SCH ×2 (09:53→19:53)
[2016-09-16] MEDS: BENEPROTEIN POWDER 1 PACK G-TUBE SCH ×3 (09:53→17:28)
--- NOTE | 2016-09-16 13:06 | HHI.PR ---
Subjective Remarks Not responsive. On a T Bar 28 %. No fever. Tolerates feeds. Objective Vital Signs Date Time Temp Pulse Resp B/P Pulse Ox O2 Delivery O2 Flow Rate FiO2 09/16/16 07:43 100 T-piece 5.00 28 09/16/16 06:00 73 09/16/16 04:00 86 09/16/16 04:00 98.5 86 29 166/82 99 09/16/16 02:00 64 09/16/16 00:00 98.3 61 20 143/76 99 09/16/16 00:00 61 09/15/16 22:00 64 09/15/16 20:22 98 T-piece 28 09/15/16 20:00 99.9 65 16 137/73 98 09/15/16 20:00 74 09/15/16 18:00 77 09/15/16 16:00 71 09/15/16 16:00 99.8 74 18 137/73 96 09/15/16 14:00 72 I/O 09/15/16 09/15/16 09/15/16 09/16/16 09/16/16 09/16/16 07:00 15:00 23:00 07:00 15:00 23:00 Intake Total 610 ml 821 ml 578 ml 598 ml 320 ml Output Total 626 ml 440 ml 810 ml 750 ml 800 ml Balance -16 ml 381 ml -232 ml -152 ml -480 ml Intake IV Total 40 ml 146 ml 37 ml 39 ml Tube Feeding 370 ml 475 ml 341 ml 359 ml Other 200 ml 200 ml 200 ml 200 ml 320 ml Output Urine Total 600 ml 400 ml 800 ml 750 ml 800 ml Drainage Total 26 ml 40 ml 10 ml 0 ml # Bowel Movements 0 0 0 0 1 Result Diagram: 09/16/16 0355 09/16/16 0355 Objective Remarks This is an averagely built middle-aged man who is poorly responsive on a trache collar. He has weakness of his right extremities. HEENT: Head normocephalic. Pupils sluggishly reactive. Throat has a few secretions. Ears, no inflammation. NECK: Supple without venous distension. No thyromegaly or lymphadenopathy. CHEST: Decreased breath sounds at the bases. Occasional crackles at the right base. HEART: The heart sounds are regular, S1-S2. No murmur. No S3. ABDOMEN: The abdomen is soft, nontender. Bowel sounds are faint. No organomegaly. EXTREMITIES: Weakness and muscle wasting of the right extremities. There is some edema of the arm. The patient does withdraw the left extremities to stimuli. Skin was dry and cool. RECTAL: Exam is deferred. Assessment and Plan Assessment and Plan IMPRESSION 1. Status post left basal ganglia intraparenchymal hemorrhage with the right frontal ventriculostomy placement. 2. Acute respiratory failure resolved. 3. Bibasilar atelectasis and pneumonia. 4. History of uncontrolled hypertension. 5. Right hemiplegia. Plan : 1. T Bar 28 %. 2. Trach suction and lavage prn. 3. Nebs bid , duoneb. 4. Cont Rocephin 1 G IV. 5. CBC,BMP. 6. PT evaluation. Lynne White MD Sep 16, 2016 13:05
[2016-09-16] MEDS: cefTRIAXone INJ 1,000 MG in SODIUM CHLORIDE 0.9% INJ 100 ML IV SCH (13:07)
--- NOTE | 2016-09-16 23:59 | HHI.PR ---
Subjective Remarks Patient seen today around 4 PM. Patient sleeping, eyes open durable simulation. Noncommunicative. No changes per nursing. Objective Vital Signs Date Time Temp Pulse Resp B/P Pulse Ox O2 Delivery O2 Flow Rate FiO2 09/16/16 22:00 72 09/16/16 20:47 99 T-piece 5.00 28 09/16/16 20:00 98.3 77 23 155/81 100 09/16/16 20:00 74 09/16/16 19:00 100 T-Piece 28 09/16/16 18:00 72 09/16/16 16:00 75 09/16/16 16:00 99.7 75 19 134/73 99 09/16/16 14:00 70 09/16/16 12:00 99.3 68 17 109/58 99 09/16/16 12:00 68 09/16/16 10:00 69 09/16/16 08:00 88 09/16/16 08:00 99.6 88 22 161/78 97 09/16/16 07:43 100 T-piece 5.00 09/16/16 07:00 97 T-Piece 09/16/16 06:00 73 09/16/16 04:00 86 09/16/16 04:00 98.5 86 29 166/82 99 09/16/16 02:00 64 09/16/16 00:00 98.3 61 20 143/76 99 09/16/16 00:00 61 I/O 09/15/16 09/15/16 09/15/16 09/16/16 09/16/16 09/16/16 06:59 14:59 22:59 06:59 14:59 22:59 Intake Total 610 ml 821 ml 578 ml 598 ml 852 ml 590 ml Output Total 626 ml 440 ml 810 ml 750 ml 1043 ml 511 ml Balance -16 ml 381 ml -232 ml -152 ml -191 ml 79 ml Intake IV Total 40 ml 146 ml 37 ml 39 ml 120 ml Tube Feeding 370 ml 475 ml 341 ml 359 ml 292 ml 260 ml Other 200 ml 200 ml 200 ml 200 ml 440 ml 330 ml Output Urine Total 600 ml 400 ml 800 ml 750 ml 1040 ml 500 ml Drainage Total 26 ml 40 ml 10 ml 0 ml 3 ml 11 ml # Voids 1 # Bowel Movements 0 0 0 0 1 Result Diagram: 09/16/16 0355 09/16/16 0355 Objective Remarks GENERAL: Response to verbal stimuli, however is nonverbal. Does not obey commands. Makes eye contact.no changes on exam. SKIN: Warm and dry. HEAD: Normocephalic. EYES: No scleral icterus. No injection or drainage. NECK: Supple, trachea midline. No JVD CARDIOVASCULAR: Regular rate and rhythm without murmurs, gallops, or rubs. RESPIRATORY: Breath sounds equal bilaterally. No accessory muscle use. GASTROINTESTINAL: Abdomen soft, non-tender, nondistended. MUSCULOSKELETAL: No cyanosis, or edema. BACK: Nontender without obvious deformity. No CVA tenderness. A/P Assessment and Plan ==== 09/16/16 -seen and examined. -No acute changes. Neurosurgery continues to monitor IC pressures. Continues on ceftriaxone for staph pneumonia, Escherichia coli UTI stop date 09/18. Tracheostomy T piece. appreciate pulm assist. 61-year-old male with left basal ganglia hemorrhage, intraventricular extension test post placement of ventriculostomy drain. Elevated ICPs. Neurosurgery following. Hospital course was complicated by acute hypoxic and hypercarbic respiratory failure, as well as staph pneumonia, Escherichia coli UTI. Tracheostomy in place, tolerating T piece 09/13. Neuro/Psych: //Left basal ganglia intraparenchymal hemorrhage //s/p Right frontal ventriculostomy placement 08/26 //Possible amyloid angiopathy CT head revealed left basal ganglia intraparenchymal hemorrhage 3.42 cm with extension to lateral ventricle, midline shift 5 mm to the right. Neurosurgery/Dr. Croft. Right frontal twist drill hole ventriculostomy. Neuro checks q1h Goal systolic blood pressure less than 140 continue to watch sodium keep in normal range, prevent hyponatremia Keppra 500 IV every 12 hours each prophylaxis 7 days ICP currently well controlled -- EEG 08/30: generalized slowing, no seizure activity. -Neurosurgery continues to manage. Appreciate assistance. CV: //Hypertensive emergency -Initially managed with Cardizem drip. Resolved. Continue Hydralazine 100 tid, lisinopril 20 po bid, lopressor 100 bid. catapres 0.3 bid. Resp: //Acute hypoxic and hypercarbic respiratory failure -On tracheostomy, tolerating T piece on 09/13. Consult pulmonology for ongoing management. GI: //Acute Protein Calorie Malnutrition-mild //Constipation Tube feeds with Jevity, having BM Protonix for GI prophylaxis Colace/as needed Senokot for bowel regimen. goal daily bowel movements. : [place] for accurate I/Os. Endo: //Hyperglycemia of Critical Illness. Controlled Sliding-scale insulin with Accu-Cheks 3 times a day hours to maintain euglycemia. Low regimen Heme: daily CBC. ID: //[id number] //Staph pneumonia Continue ceftriaxone. Stop date 09/18 FEN: //Hypokalemia. Resolved. Monitor. Prophylaxis - GI - Protonix - DVT - SCD Discharge Planning Ongoing management by neurosurgery for intracranial hemorrhage. likely inpatient rehabilitation when cleared by neurosurgery. Jorge Cai MD Sep 16, 2016 23:59 Jorge Cai MD Sep 16, 2016 23:59
[2016-09-17] VITALS (14 sets, daily range): BP systolic 132–152; BP diastolic 73–79; PULSE 68–87; RESP 14–21; TEMP 98.3–100.2; O2SAT 97–100
[2016-09-17] MEDS: FREE WATER G-TUBE SCH ×3 (03:29→20:00)
[2016-09-17] MEDS: CHLORHEXIDINE GLUCONATE 2 % 1 PACK (2 CLOTHS) TOP SCH (03:29)
[2016-09-17] MEDS: LABETALOL HCL 100 MG/20 ML VIAL IV PRN (03:30)
[2016-09-17] MEDS ORDERED: ATROPINE SULFATE 1 MG/10 ML SYRINGE ONE (04:04)
[2016-09-17] MEDS ORDERED: EPINEPHrine HCL (1:10,000) 1 MG/10 ML SYRINGE ONE (04:04)
[2016-09-17] MEDS ORDERED: LIDOCAINE HCL 2% 100 MG/5 ML SYRINGE ONE (04:04)
--- NOTE | 2016-09-17 04:49 | RADRPT ---
EXAM DATE/TIME: 09/17/2016 04:06 [facility] COMPARISON: CHEST SINGLE AP, September 08, 2016, 9:14. INDICATIONS : Shortness of breath. MEDICAL HISTORY : Hypertension. SURGICAL HISTORY : None. ENCOUNTER: Subsequent ACUITY: 3 weeks PAIN SCORE: Non-responsive. LOCATION: Bilateral chest FINDINGS: There is bilateral mostly basilar airspace consolidation. Elevated right hemidiaphragm. No effusion. NG enters stomach. Tracheostomy in satisfactory position. CONCLUSION: 1. Basilar airspace consolidation. No effusion. No pneumothorax. Bishop Fulton MD on September 17, 2016 at 4:45 Board Certified Radiologist. This report was verified electronically.
[2016-09-17 04:50] LABS: AUTOMATED NEUTROPHIL # 3.8 TH/MM3 (1.8-7.7); BASOPHIL # 0.1 TH/MM3 (0-0.2); BASOPHIL % 0.9 % (0.0-2.0); EOSINOPHIL # 0.4 TH/MM3 (0-0.4); EOSINOPHIL % 6.2 % (0.0-4.0); HEMATOCRIT 33.2 % (39.0-51.0); HEMO FLAGS DIFF FINAL; LYMPH % 19.9 % (9.0-44.0); LYMPHOCYTE # 1.2 TH/MM3 (1.0-4.8); MEAN CELL VOLUME 94.7 FL (80.0-100.0); MEAN CORPUSCULAR HEMOGLOBIN 32.4 PG (27.0-34.0); MEAN CORPUSCULAR HGB CONC 34.2 % (32.0-36.0); MONO % 11.4 % (0.0-8.0); NEUT % 61.6 % (16.0-70.0); PLATELET COUNT 400 TH/MM3 (150-450); RED BLOOD COUNT 3.51 MIL/MM3 (4.50-5.90); RED CELL DISTRIBUTION WIDTH 12.9 % (11.6-17.2); WHITE BLOOD COUNT 6.1 TH/MM3 (4.0-11.0)
--- NOTE | 2016-09-17 05:01 | RADRPT ---
EXAM DATE/TIME: 09/17/2016 04:14 [facility] COMPARISON: CT BRAIN W/O CONTRAST, September 08, 2016, 4:42. INDICATIONS : Follow up left basal ganglia intraparenchymal hemorrhage RADIATION DOSE: 69.15 CTDIvol (mGy) MEDICAL HISTORY : Hypertension. SURGICAL HISTORY : Ventriculostomy. Tracheostomy. ENCOUNTER: Subsequent ACUITY: 3 weeks PAIN SCALE: Non-responsive LOCATION: cranial TECHNIQUE: Multiple contiguous axial images were obtained of the head. Using automated exposure control and adj ustment of the mA and/or kV according to patient size, radiation dose was kept as low as reasonably a chievable to obtain optimal diagnostic quality images. FINDINGS: Compare September 08. There is an evolving subacute hemorrhage centered in left basal ganglia with rup ture into the ventricular system. Right frontal ventriculostomy tube remains. Edema and mass effect a re similar to the prior examination. No new hemorrhage identified. No acute bony abnormalities. CONCLUSION: 1. Slightly evolving left basal ganglia hemorrhage with surrounding edema and mass effect similar to September 08. Right frontal ventriculostomy tube unchanged. Right ventricular size relatively stable. Bishop Fulton MD on September 17, 2016 at 4:52 Board Certified Radiologist. This report was verified electronically.
[2016-09-17 05:05] LABS: BICARBONATE 29.3 MEQ/L (21.0-32.0); POTASSIUM 3.9 MEQ/L (3.5-5.1)
[2016-09-17] MEDS: hydrALAZINE HCL 100 MG TAB PO SCH ×3 (05:11→22:00)
[2016-09-17] MEDS: INSULIN ASPART SUPPLEMENTAL SCALE SQ SCH ×4 (06:03→21:00)
[2016-09-17] MEDS: RESP: ALBUTEROL 2.5 MG/IPRATROPIUM 0.5 MG NEB (SCH) NEB ×2 (07:37→19:40)
[2016-09-17] MEDS ORDERED: LIDOCAINE 1%/EPINEPHrine 1:100,000 SOLN 20 ML VIAL INFIL ONE (08:45)
[2016-09-17] MEDS: LACTULOSE SYRUP 20 GM/30 ML CUP PO SCH ×2 (09:00→21:00)
[2016-09-17] MEDS: POLYETHYLENE GLYCOL 17 GM PKG PO SCH ×2 (09:00→21:00)
[2016-09-17] MEDS: SODIUM CHLORIDE 0.9% FLUSH 5 ML FLUSH IVF SCH (09:00)
[2016-09-17] MEDS ORDERED: LIDOCAINE 1%/EPINEPHrine 1:100,000 SOLN 30 ML VIAL ONE (09:02)
--- NOTE | 2016-09-17 09:27 | HHI.NSPN ---
(Sergey Melton) History Chief Complaint: Left basal ganglia hemorrhage (Sergey Melton) Interval History This is a middle-aged gentleman who apparently was brought to [facility] Emergency Room with acute onset of right-sided weakness and slurred speech. He was hypertensive on presentation and had a declining neurologic examination requiring intubation for airway control with ventilator support. CT scan of the head obtained reveals a basal ganglia hemorrhage on the left side measuring about 3.4 cm in diameter. There is also extension of the hemorrhage into the left lateral ventricle. No hydrocephalus is noted, although left temporal horn is dilated. Currently there is no friends or family members here to relate a history and his identity is unknown. 08/27/16: Pt sedated on Diprivan. Not opening eyes. Not following commands. Pupils 2mm bilaterally slight reaction bilaterally. 08/28/16: Pt sedated on Diprivan. Not opening eyes. Pupils 2mm bilaterally slight brisk reaction. Not following commands. 08/29/16: Pt sedated with Diprivan and Fentanyl drips. Not opening eyes. Pupils 2mm bilaterally slight brisk reaction. Not following commands. 09/01/16: Pt off sedation. Not opening eyes. Pupils 3mm bilaterally reactive. Not following commands. Ventriculostomy in place. ICP 18 after stimulation. 09/02/16: Pt off sedation. Not opening eyes to pain. Pupils 3mm bilaterally reactive bilaterally. Not following commands. ICP 11 with ventriculostomy drain at 22wcD14. 09/03/16: Pt off sedative drips. Not opening eyes. Ventriculostomy drain clamped, reportedly had to be opened multiple times last night. Currently tolerating clamping since 730am. 09/04/16: Pt not opening eyes. Pupils 4mm bilaterally reactive bilaterally. Not following commands. Withdraws UEs to pain. Localizes with LUE to pain in upper chest. 09/05/16: Pt not opening eyes. Pupils 4mm bilaterally reactive bilaterally. Not following commands. Spontaneously moves LUE. Localizes to pain with LUE. Right hemiparesis but withdraws to pain. 09/06/16: Pt not opening eyes. Off sedation. Pupils 4mm bilaterally reactive bilaterally. Not following commands. spontaneously moves LUE. Localizes to pain with LUE. Right hemiparesis. 09/07/16: Pt not opening eyes. No sedation. Pupils 4mm bilaterally, reactive bilaterally. Not following commands. right hemiparesis. Spontaneous movement in LUE and localizes to pain with LUE. 09/08/16: Pt not opening eyes. Pupils 4mm bilaterally. Ventriculostomy had been clamped several times last night but has to be reopened for elevated ICPs. Currently Ventriculostomy at 32ptY50 ICP 19-20. 09/09/16: Pt not opening eyes. Pupils 4mm bilaterally, reactive bilaterally. Ventriculostomy drain at [id number] with bloody CSF drainage. ICPs 9. 09/10/16: Pt not opening eyes. Pupils 4mm bilaterally reactive bilaterally. Ventriculostomy drain at 92orG03 with bloody CSF drainage. ICP 14. 09/11/16: Pt not opening eyes. Pupils 2mm bilaterally reactive bilaterally. Ventriculostomy drain at 60yaG73 with old bloody CSF drainage. ICP 13-14. 09/12/16: Pt opening eyes today to stimulation. Not following commands. Spontaneously server assistant left hand. Right hemiparesis. 09/15/16: Pt opening eyes slightly to stimulation. Not following commands. Attempts to localize with LUE to pain in upper chest. Right hemiparesis. 09/16/16: Pt opening eyes slightly. Not following commands. Right hemiparesis. Ventriculostomy clamped ICPs teens to occasional above 20 but less than 25. 09/17/16: Pt opening eyes more today. Not following commands. Right hemiparesis. (Sergey Melton) System Review Comments Not able to obtain given clinical condition. (Sergey Melton) Exam Results Vital Signs Date Time Temp Pulse Resp B/P Pulse Ox O2 Delivery O2 Flow Rate FiO2 09/17/16 07:38 100 T-piece 5.00 28 09/17/16 06:00 77 09/17/16 04:00 98.3 20 143/78 Intake and Output 09/16/16 09/16/16 09/17/16 08:00 16:00 00:00 Intake Total 598 ml 852 ml 590 ml Output Total 750 ml 1043 ml 511 ml Balance -152 ml -191 ml 79 ml (Sergey Melton) Physical Examination Resp: Trach in place. CTA bilaterally. Heart: NSR no murmurs Abd: Soft positive bs Skin: No signs of infection at ventriculostomy site. Muscle: Right hemiparesis. Attempts to localize with LUE to pain in upper chest. Neuro: Pt opens eyes spontaneously. Pupils 3mm bilaterally reactive bilaterally. Not following commands. Ventriculostomy drain in place. ICPs 16- 19 at 56fpO14 clamped. Occasionally rise above 20 but not 25. Using chloraprep the ventriculostomy site was cleaned. 1cc of Lidocaine with epi 1% was used for local anesthesias. The drain was removed and 3 rosalva were placed using sterile technique. (Sergey Melton) Lab, Micro, Other Results Laboratory Tests Test 09/17/16 03:59 White Blood Count 6.1 TH/MM3 Red Blood Count 3.51 MIL/MM3 Hemoglobin 11.4 GM/DL Hematocrit 33.2 % Mean Corpuscular Volume 94.7 FL Mean Corpuscular Hemoglobin 32.4 PG Mean Corpuscular Hemoglobin 34.2 % Concent Red Cell Distribution Width 12.9 % Platelet Count 400 TH/MM3 Mean Platelet Volume 10.6 FL Neutrophils (%) (Auto) 61.6 % Lymphocytes (%) (Auto) 19.9 % Monocytes (%) (Auto) 11.4 % Eosinophils (%) (Auto) 6.2 % Basophils (%) (Auto) 0.9 % Neutrophils # (Auto) 3.8 TH/MM3 Lymphocytes # (Auto) 1.2 TH/MM3 Monocytes # (Auto) 0.7 TH/MM3 Eosinophils # (Auto) 0.4 TH/MM3 Basophils # (Auto) 0.1 TH/MM3 CBC Comment DIFF FINAL Differential Comment Sodium Level 141 MEQ/L Potassium Level 3.9 MEQ/L Chloride Level 103 MEQ/L Carbon Dioxide Level 29.3 MEQ/L Anion Gap 9 MEQ/L Blood Urea Nitrogen 27 MG/DL Creatinine 0.66 MG/DL Estimat Glomerular Filtration 123 ML/MIN Rate Random Glucose 201 MG/DL Calcium Level 9.4 MG/DL 09/16/16 09/16/16 09/17/16 15:00 23:00 07:00 Intake Total 852 ml 590 ml 502 ml Output Total 1043 ml 511 ml 503 ml Balance -191 ml 79 ml -1 ml Intake IV Total 120 ml Tube Feeding 292 ml 260 ml 302 ml Other 440 ml 330 ml 200 ml Output Urine Total 1040 ml 500 ml 500 ml Drainage Total 3 ml 11 ml 3 ml # Voids 1 # Bowel Movements 1 (Sergey Melton) Medical Decision Making Impression and Plan A: 61 y/o M with Left basal ganglia hemorrhage with intraventricular extension with mild hydrocephalus. This is a characteristic of a hypertensive bleed. 2. Unregulated hypertension. 3. Respiratory failure secondary to the intracranial hemorrhage. 4. Fevers 5. UTI gram - julia sensitive to abx 6. sputum staph aureus sensitive to abx. 7. Blood and CSF negative at 72 hours. PLAN Ventriculostomy drain removed using sterile technique per Dr. Croft's request. Continue with blood pressure control Continue with critical care UTI gram - julia, continue with antibiotic sputum staph aureus continue with antibiotic. Blood and CSF negative at 72 hours. Continue with rehab efforts. (Sergey Melton) Attending Statement The exam, history, and the medical decision-making described in the above note were completed with the assistance of the mid-level provider. I reviewed and agree with the findings presented. I attest that I had a [id number] encounter with the patient on the same day, and personally performed and documented my assessment and findings in the medical record. Stable follow-up CT scan of the head with the normal ICPs with ventriculostomy clamping. Remove ventriculostomy and continue with supportive care and rehabilitation as tolerated. (Jeff Croft MD) Sergey Melton Sep 17, 2016 09:27 Jeff Croft MD Sep 17, 2016 18:39
[2016-09-17] MEDS: CHLORHEXIDINE 0.12% (ORAL KIT) 15 ML CUP MT SCH ×2 (09:53→20:00)
[2016-09-17] MEDS: BENEPROTEIN POWDER 1 PACK G-TUBE SCH ×3 (09:54→18:21)
[2016-09-17] MEDS: ARTIFICIAL TEARS OPTH SOLN 15 ML BTL EACH EYE SCH ×3 (09:54→18:20)
[2016-09-17] MEDS: LISINOPRIL 20 MG TAB PO SCH ×2 (09:55→21:00)
[2016-09-17] MEDS: FAMOTIDINE 20 MG TAB NG SCH ×2 (09:55→21:00)
[2016-09-17] MEDS: cloNIDine HCL 0.3 MG TAB PO SCH ×2 (09:55→21:00)
[2016-09-17] MEDS: SODIUM CHLORIDE 0.9% FLUSH 5 ML FLUSH IV FLUSH SCH ×2 (09:55→21:00)
[2016-09-17] MEDS: METOPROLOL TARTRATE 50 MG TAB PO SCH ×2 (09:55→21:00)
[2016-09-17] MEDS: DOCUSATE SODIUM 100 MG CAP PO SCH ×2 (09:55→21:00)
[2016-09-17] MEDS: JUVEN POWDER 1 PACK G-TUBE SCH ×2 (09:55→21:00)
[2016-09-17] MEDS: BISACODYL 10 MG SUPP RECTAL SCH (09:56)
--- NOTE | 2016-09-17 10:24 | PD.CONS ---
Consult Service Palliative Care Consult Requested By Herberth Cai MD Primary Care Physician Unknown Reason for Consultation a. To assist with evaluation and management of symptoms including: pain, debility, dyspnea b. To assist medical decision maker(s) with: better understanding of current medical conditions; weighing benefits/burdens of medical treatment options; making medical treatment decisions. HPI History of Present Illness This is a 61 yo male with a hx of blood pressure who presented to the ED unresponsive. Initial diagnostics found he had incurred a hypertensive bleed. CT brain showed large intraparenchymal hemorrhage in left basal ganglia with extension into left lateral ventricle. There was surrounding edema and mild midline shift to the right. He was intubated for airway maintenance. NIH stroke scale was 22. Pt was very hypertensive with BP of 175/118. Ventriculostomy was placed on 08/26/2016 date of admission, and removed on 2016 as ICP pressures normalized. During his hospital course, he was found to have Escherichia coli in the urine as well as staph aureus in sputum. He was treated with antibiotics. Otherwise, he has been stable with slow progression. He is not on any sedating medicines. He is receiving feeding via orogastric tube. He is off the ventilator with Tpiece at 5 L and maintaining oxygen saturation of 100%. Blood pressures and heart rate is normalized. Functionally, OT notes indicate that he will spontaneously move left upper extremity and intermittently opens his eyes but does not follow directions. It is anticipated that he will have multiple impairments for cognition, self-care, functional mobility, and strength. At the time of my visit, he attempted to open his eyes to call of name, but was not able. He did not respond to pain stimuli. He appeared comfortable. I had the opportunity to talk with Mr. Ruiz daughter Haritha, , who is a medical student in [place]. She knows very little about her father' s history. At this point Haritha is the spokesperson for the family, but is not officially a health care surrogate. She also has a brother, Saulo who lives in [place] as well. She did confirm with me that she would want him to be full code in the event more was to arise. She asked about his future cognitive/functional status. She was told that at this time while he has shown some limited progress, the likelihood of a meaningful recovery is unlikely. I also spoke with the patient's [id number], Gisel Salgado [phone] who lives in [place]. He has been living in the [place] area for some time. She tells me that he has been from his who lives in [place] for many years. Will need to attain contact information. 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 He will attempt to open his eyes to call with name and will have some spontaneous movement of left arm Review of Systems ROS Limitations: Clinical Condition, Intubated (tracheostomy), Altered Mental Status (global aphasia) Other ROS: Unable to obtain adequate review of systems due to patient's clinical status. Any information is obtained from the chart or observed Past Family Social History Coded Allergies: Iodinated Contrast Media (Verified Allergy, Unknown, syncopal episodes, 08/27/16) Past Medical History Hypertension Reported Medications None reported Current Medications Medications (Trade) Dose Ordered Sig/Mc Route Start Time Stop Time Status Last Admin (NS Flush) DAILY IVF 08/27/16 09:00 09/14/16 08:48 (NS Flush) UNSCH PRN IVF 08/26/16 18:45 (NS Flush) 2 ml UNSCH PRN IV FLUSH 08/26/16 18:45 (NS Flush) 2 ml BID IV FLUSH 08/26/16 21:00 09/16/16 19:52 (Tylenol) 650 mg Q6H PRN PO 08/26/16 18:45 09/10/16 08:50 (Tears Naturale Opth Soln) 1 drop TID EACH EYE 08/27/16 09:00 09/16/16 17:28 (Zofran Inj) 4 mg Q6H PRN IV 08/26/16 18:45 (Colace) 100 mg BID PO 08/26/16 21:00 09/16/16 09:49 (Senokot) 17.2 mg Q12H PRN PO 08/26/16 18:45 08/29/16 16:30 Miscellaneous Information 1 Q361D XX 08/26/16 18:45 (Chlorhexidine 2% Cloth) 3 pack Taper DAILY@04 TOP 08/27/16 04:00 08/23/17 03:59 09/17/16 03:29 Chlorhexidine Gluconate 3 pack 3 pack UNSCH PRN TOP 08/26/16 18:45 (fentaNYL DRIP) 250 ml @ 0 mls/hr TITRATE IV 08/26/16 18:45 08/31/16 02:41 (Peridex 0.12% Liq) 15 ml BID@08,20 MT 08/26/16 20:00 09/16/16 19:52 (Tylenol) 650 mg Q4H PRN PO 08/26/16 18:45 09/13/16 06:05 (Apresoline Inj) 10 mg Q30M PRN IV PUSH 08/26/16 19:30 09/13/16 17:33 (Zack Powder) 1 pack BID G-TUBE 08/27/16 21:00 09/16/16 19:52 (Norvasc) 10 mg DAILY PO 08/28/16 09:00 09/16/16 09:50 (Trandate Inj) 20 mg Q1H PRN IV 08/28/16 15:45 09/17/16 03:30 (Miralax) 17 gm BID PO 08/29/16 21:00 09/15/16 20:18 (Lactulose Liq) 30 ml BID PO 08/29/16 21:00 09/15/16 20:18 (Dulcolax Supp) 10 mg DAILY RECTAL 08/30/16 09:45 09/16/16 09:50 Hydralazine HCl 100 mg 100 mg Q8HR PO 09/03/16 14:00 09/17/16 05:11 (Diprivan 1000 Mg/100ml Inj) 100 ml @ 0 mls/hr TITRATE IV 09/04/16 11:00 (Prinivil) 20 mg BID PO 09/05/16 21:00 09/16/16 19:53 (Lopressor) 100 mg Q12HR PO 09/07/16 21:00 09/16/16 19:53 Protein 1 pack 1 pack TID G-TUBE 09/07/16 18:00 09/16/16 17:28 (Rocephin Inj/NS Inj) 100 ml @ 200 mls/hr Q24H IV 09/10/16 13:00 09/16/16 13:07 (Free Water) 200 ml Q8H G-TUBE 09/11/16 20:00 09/17/16 03:29 (Catapres) 0.3 mg Q12HR PO 09/11/16 21:00 09/16/16 19:53 (Pepcid) 20 mg BID NG 09/11/16 21:00 09/16/16 19:52 Family History Unable to obtain due to patient's cognitive status Substance Use Tobacco: Lyrddt-il-uvc states he did not smoke Alcohol: Yijlvi-ur-gyx states he would have 1-2 beers Prescription med abuse: Bfstvb-xe-kso states none Illicits: Xccxec-ot-dcy states none Psychosocial History Reported that he was a prisoner of war and suffers posttraumatic stress disorder. Per his daughter Haritha, he is from his who currently lives in [place]. He has lived in the [facility] for many years. He has 1 son Saulo, who also lives in [place]. Both Haritha and Gisel indicate that he was a private person and did not reveal much about his life. He was "helping a woman"/probably living with Spiritual/Cultural Factors He is [place] and his family indicates would want a clinical rehabilitation liaison or ignition mechanic Living Will: Never completed Health Care Surrogate: Never completed Durable Power of Scalp Treatment Specialist: Never completed Physical Exam Vital Signs Date Time Temp Pulse Resp B/P Pulse Ox O2 Delivery O2 Flow Rate FiO2 09/17/16 07:38 100 T-piece 5.00 28 09/17/16 06:00 77 09/17/16 04:00 76 09/17/16 04:00 98.3 76 20 143/78 98 09/17/16 02:00 77 09/17/16 00:00 83 09/17/16 00:00 98.3 83 21 139/77 98 09/16/16 22:00 72 09/16/16 20:47 99 T-piece 5.00 28 09/16/16 20:00 98.3 77 23 155/81 100 09/16/16 20:00 74 09/16/16 19:00 100 T-Piece 28 09/16/16 18:00 72 09/16/16 16:00 75 09/16/16 16:00 99.7 75 19 134/73 99 09/16/16 14:00 70 09/16/16 12:00 99.3 68 17 109/58 99 09/16/16 12:00 68 09/16/16 10:00 69 09/16/16 09/17/16 19:00 07:00 Intake Total 982 ml 962 ml Output Total 1043 ml 1014 ml Balance -61 ml -52 ml Intake IV Total 120 ml Tube Feeding 292 ml 562 ml Other 570 ml 400 ml Output Urine Total 1040 ml 1000 ml Drainage Total 3 ml 14 ml # Voids 1 # Bowel Movements 1 Exam CONSTITUTIONAL/GENERAL: This is an adequately nourished patient, in no apparent distress. TUBES/LINES/DRAINS: ET tube, Kern, central line, orogastric tube SKIN: No jaundice, rashes, or lesions. We'll approximated suture lines to this skull, post ICP line No wounds seen anteriorly. Skin temperature appropriate. Not diaphoretic. HEAD: Atraumatic. Normocephalic. EYES: Pupils equal and round , . Not tracking, No injection or drainage. ENT: Able to assess hearing. Mouth/ Throat without visible erythema, exudates, masses, or lesions. NECK: T tube in place T CARDIOVASCULAR: Regular rate and rhythm without murmurs, gallops, or rubs. No JVD. Peripheral pulses symmetric. RESPIRATORY/CHEST: Tpiece at 5 L Anterior rhonchi, posterior diminished mid to base, Symmetric, unlabored respirations. GASTROINTESTINAL: Abdomen soft, non-tender, nondistended. No hepato-splenomegaly , or palpable masses. No guarding. Bowel sounds present. GENITOURINARY: Without palpable bladder distension. Urinary catheter in place. MUSCULOSKELETAL: Extremities without clubbing, cyanosis, or edema. No joint tenderness or effusion noted. No calf tenderness. No mottling or clubbing. LYMPHATICS: No palpable cervical or supraclavicular adenopathy. NEUROLOGICAL: Minimally responsive. Will open eyes or attempt to open eyes to touch or call name. No response or withdrawal to pain. PSYCHIATRIC: Unable to assess Diagnostic Tests Laboratory Laboratory Tests Test 09/14/16 09/15/16 09/16/16 09/17/16 16:44 03:35 03:55 03:59 Sodium Level 140 MEQ/L 139 MEQ/L 139 MEQ/L 141 MEQ/L (136-145) (136-145) (136-145) (136-145) Potassium Level 4.0 MEQ/L 3.9 MEQ/L 3.8 MEQ/L 3.9 MEQ/L (3.5-5.1) (3.5-5.1) (3.5-5.1) (3.5-5.1) Chloride Level 104 MEQ/L 103 MEQ/L 103 MEQ/L 103 MEQ/L (98-107) (98-107) (98-107) (98-107) Carbon Dioxide Level 29.8 MEQ/L 27.7 MEQ/L 31.3 MEQ/L 29.3 MEQ/L (21.0-32.0) (21.0-32.0) (21.0-32.0) (21.0-32.0) Anion Gap 6 MEQ/L (5-15) 8 MEQ/L (5-15) 5 MEQ/L (5-15) 9 MEQ/L (5-15) Blood Urea Nitrogen 25 MG/DL (7-18) 26 MG/DL (7-18) 26 MG/DL (7-18) 27 MG/DL (7- 18) Creatinine 0.65 MG/DL 0.68 MG/DL 0.78 MG/DL 0.66 MG/DL (0.60-1.30) (0.60-1.30) (0.60-1.30) (0.60-1.30) Estimat Glomerular Filtration 125 ML/MIN 119 ML/MIN 101 ML/MIN 123 ML/MIN Rate (>89) (>89) (>89) (>89) Random Glucose 141 MG/DL 179 MG/DL 199 MG/DL 201 MG/DL (74-106) (74-106) (74-106) (74-106) Calcium Level 9.5 MG/DL 9.7 MG/DL 8.9 MG/DL 9.4 MG/DL (8.5-10.1) (8.5-10.1) (8.5-10.1) (8.5-10.1) White Blood Count 8.9 TH/MM3 6.9 TH/MM3 6.1 TH/MM3 (4.0-11.0) (4.0-11.0) (4.0-11.0) Red Blood Count 3.48 MIL/MM3 3.32 MIL/MM3 3.51 MIL/MM3 (4.50-5.90) (4.50-5.90) (4.50-5.90) Hemoglobin 11.1 GM/DL 10.8 GM/DL 11.4 GM/DL (13.0-17.0) (13.0-17.0) (13.0-17.0) Hematocrit 32.8 % 31.3 % 33.2 % (39.0-51.0) (39.0-51.0) (39.0-51.0) Mean Corpuscular Volume 94.2 FL 94.2 FL 94.7 FL (80.0-100.0) (80.0-100.0) (80.0-100.0) Mean Corpuscular Hemoglobin 31.9 PG 32.5 PG 32.4 PG (27.0-34.0) (27.0-34.0) (27.0-34.0) Mean Corpuscular Hemoglobin 33.8 % 34.5 % 34.2 % Concent (32.0-36.0) (32.0-36.0) (32.0-36.0) Red Cell Distribution Width 12.4 % 12.6 % 12.9 % (11.6-17.2) (11.6-17.2) (11.6-17.2) Platelet Count 469 TH/MM3 436 TH/MM3 400 TH/MM3 (150-450) (150-450) (150-450) Mean Platelet Volume 11.1 FL 10.9 FL 10.6 FL (7.0-11.0) (7.0-11.0) (7.0-11.0) Neutrophils (%) (Auto) 75.0 % 66.2 % 61.6 % (16.0-70.0) (16.0-70.0) (16.0-70.0) Lymphocytes (%) (Auto) 12.4 % 17.8 % 19.9 % (9.0-44.0) (9.0-44.0) (9.0-44.0) Monocytes (%) (Auto) 6.9 % (0.0-8.0) 9.5 % (0.0-8.0) 11.4 % (0.0-8.0) Eosinophils (%) (Auto) 4.7 % (0.0-4.0) 5.6 % (0.0-4.0) 6.2 % (0.0-4.0) Basophils (%) (Auto) 1.0 % (0.0-2.0) 0.9 % (0.0-2.0) 0.9 % (0.0-2.0) Neutrophils # (Auto) 6.7 TH/MM3 4.6 TH/MM3 3.8 TH/MM3 (1.8-7.7) (1.8-7.7) (1.8-7.7) Lymphocytes # (Auto) 1.1 TH/MM3 1.2 TH/MM3 1.2 TH/MM3 (1.0-4.8) (1.0-4.8) (1.0-4.8) Monocytes # (Auto) 0.6 TH/MM3 0.7 TH/MM3 0.7 TH/MM3 (0-0.9) (0-0.9) (0-0.9) Eosinophils # (Auto) 0.4 TH/MM3 0.4 TH/MM3 0.4 TH/MM3 (0-0.4) (0-0.4) (0-0.4) Basophils # (Auto) 0.1 TH/MM3 0.1 TH/MM3 0.1 TH/MM3 (0-0.2) (0-0.2) (0-0.2) CBC Comment AUTO DIFF AUTO DIFF DIFF FINAL Differential Comment AUTO DIFF FINAL DIFF CONFIRMED MANUAL Platelet Estimate HIGH (NORMAL) NORMAL (NORMAL) Platelet Morphology Comment ENLARGED ENLARGED (NORMAL) (NORMAL) Phosphorus Level 3.0 MG/DL (2.5-4.9) Magnesium Level 2.5 MG/DL (1.5-2.5) Albumin 2.6 GM/DL (3.4-5.0) Differential Total Cells 100 Counted Neutrophils % (Manual) 67 % (16-70) Lymphocytes % 23 % (9-44) Monocytes % 5 % (0-8) Eosinophils % 3 % (0-4) Neutrophils # (Manual) 4.8 TH/MM3 (1.8-7.7) Metamyelocytes 1 % (0-1) Myelocytes 1 % (0-0) Nucleated Red Blood Cells 1 /100 WBC (0-0) Red Cell Morphology Comment NORMAL (NORMAL) Result Diagram: 09/17/16 0359 09/17/16 0359 Imaging Last [address] 09/17/16599 Signed Impressions: Service Date/Time: Saturday, September 17, 2016 04:14 - CONCLUSION: 1. Slightly evolving left basal ganglia hemorrhage with surrounding edema and mass effect similar to September 08. Right frontal ventriculostomy tube unchanged. Right ventricular size relatively stable. Bishop Fulton MD Chest X-Ray 09/17/16599 Signed Impressions: Service Date/Time: Saturday, September 17, 2016 04:06 - CONCLUSION: 1. Basilar airspace consolidation. No effusion. No pneumothorax. Bishop Fulton MD Other i spoke w Haritha Ruiz, daughter, medical student, lives in [place]. I was able to update her on her father's current status and projection of future life. I was able to clarify with her designation of Healthcare Services. She is not appointed on paper as health care surrogate. She tells me that his , her mother, are have been for many years and she currently lives in [place]. She also tells me that she speaks very poor [place] and would need a lcsw. She also has a brother, Saulo living in [place] as well. She speaks to them often. Patient/Family Conference Present at Family Conference: I was able to speak with Haritha Ruiz, his daughter, . She is a medical student and lives in [place]. I was able to update her on her father's clinical status as well as discuss his prognosis and future needs. Discussed decision-making responsibilities. She states she is not "on paper" the health care surrogate, but rather is speaking for her family. Her mother, his from whom he has been for many years, lives in [place]. She also speaks very poor [place]. She also has a brother, Saulo, who lives in [place]. Her aunt, her mother's sister, Gisel Salgado, / lives in [place]. She states she has been trying to get information from the hospital physicians and it has been challenging. Her aunt Gisel oftentimes is here to see the patient once to twice a day. They are in communication often and she gives me permission to speak with Gisel openly. Haritha was clear to indicate that she would want him to be full CODE STATUS at this time. She is unaware if he has any living will. I was able to speak with Gisel by phone to obtain more social history about this patient. She states that he was a private person and kept to himself. Other than blood pressure issues, She knew of no others. When asked as to where he resided Gisel indicated that she thought he was "helping a woman" and that he had lived in [place] for many years Will need to obtain contact information for her mother to determine if she wishes to participate in this health decisions or defer decisions to her children. We will also need to contact Saulo patient's son to see if he will participate in decision-making. Family Conference Location: Telephone Issues Discussed: * Palliative care role, purpose, approach * Additional medical, psychosocial, and spiritual history * Patients general health, functional status, and cognitive changes in the months leading up to the current hospitalization * Patient/family understanding of the current medical problems * Patient/family understanding of prognosis * Patients goals of care as best understood from advance directives and/or conversations and/or values * Current medical treatment options and benefits/burdens of those options * Likely scenarios comparing ongoing aggressive care with a transition to comfort measures only * Questions answered to the best of my ability * Palliative care contact information provided Assessment and Plan Disease Oriented Problem List: (1) Stroke, hemorrhagic (2) Hypertension (3) Global aphasia (4) Respiratory failure Comment: Now on a T piece with 5 L./ 28% Symptom Scale: (1) Pain 0-10 Scale: Unable to quantify (2) Debility 0-10 Scale: Unable to quantify (3) Dyspnea 0-10 Scale: Unable to quantify Pertinent Non-Medical Issues Psychosocial: Spiritual: Catholicfamily would like to have a clinical rehabilitation liaison Legal: Patient is self-pay, case management is attending [facility] as he will need long-term care Ethical issues impacting care: Need to determine decision-making parties Important Contacts Haritha Ruiz [phone] - pt's daughter, living in [place]. Haritha's aunt (Mother's sister) Gisel Damian [phone] Lives in [place]. Code Status: Full Code Plan Decision Maker: His daughter. Haritha has been making decisions to this point. However, he has a that he is from who lives in [place] who has yet to be contacted and per law the primary decision maker Code Status: Full code Family Discussion: Mrs. Haritha Ruiz [phone] Arvind Symptoms: Dyspnea, dysphagia, debility, pain Palliative care phone number provided - will follow during hospital stay. Thank you for the opportunity to participate in the care of Mr. Ruiz. Attestation To help prompt me to consider important information that might be impacting today's encounter and assessment, information from prior notes written by myself or my colleagues may have been "brought forward" into today's note. My signature on this note, however, is an attestation that I personally performed the exam, history, and/or decision-making noted today, and, unless otherwise indicated, the interactions with patient, family, and staff as well as the review of records all occurred today. I also attest that the listed assessment and stated plan reflect my best clinical judgment today based on the combination of historical information, prior notes, and today's exam/ interactions. When time spent is documented, it refers only to time spent today by the signer, or if indicated, combined time spent today by collaborating physician/nurse practitioner. Fara Negron Sep 17, 2016 10:24
[2016-09-17] MEDS: cefTRIAXone INJ 1,000 MG in SODIUM CHLORIDE 0.9% INJ 100 ML IV SCH (13:00)
--- NOTE | 2016-09-17 14:10 | HHI.PR ---
Subjective Remarks Follow for hypertension Blood pressure stable, mental status about the same, no tracking, does not follow any commands. Ventriicular drain removed. Objective Vitals Vital Signs Date Time Temp Pulse Resp B/P Pulse Ox O2 Delivery O2 Flow Rate FiO2 09/17/16 12:00 98.8 79 18 132/76 97 09/17/16 12:00 69 09/17/16 10:00 68 09/17/16 08:00 99.2 73 18 152/79 100 09/17/16 08:00 70 09/17/16 07:38 100 T-piece 5.00 28 09/17/16 07:00 T-Piece 5.00 09/17/16 06:00 77 09/17/16 04:00 76 09/17/16 04:00 98.3 76 20 143/78 98 09/17/16 02:00 77 09/17/16 00:00 83 09/17/16 00:00 98.3 83 21 139/77 98 09/16/16 22:00 72 09/16/16 20:47 99 T-piece 5.00 28 09/16/16 20:00 98.3 77 23 155/81 100 09/16/16 20:00 74 09/16/16 19:00 100 T-Piece 28 09/16/16 18:00 72 09/16/16 16:00 75 09/16/16 16:00 99.7 75 19 134/73 99 I/O 09/16/16 09/16/16 09/16/16 09/17/16 09/17/16 09/17/16 07:00 15:00 23:00 07:00 15:00 23:00 Intake Total 598 ml 852 ml 590 ml 502 ml 300 ml Output Total 750 ml 1043 ml 511 ml 503 ml Balance -152 ml -191 ml 79 ml -1 ml 300 ml Intake IV Total 39 ml 120 ml Tube Feeding 359 ml 292 ml 260 ml 302 ml Other 200 ml 440 ml 330 ml 200 ml 300 ml Output Urine Total 750 ml 1040 ml 500 ml 500 ml Drainage Total 0 ml 3 ml 11 ml 3 ml # Voids 1 # Bowel Movements 0 1 Result Diagram: 09/17/16 0359 09/17/16 0359 Objective Remarks GENERAL: nonverbal. Does not obey commands. Not tracking, eyes open. SKIN: Warm and dry. HEAD: Normocephalic. EYES: No scleral icterus. No injection or drainage. NECK: Supple, trachea midline. No JVD CARDIOVASCULAR: Regular rate and rhythm without murmurs, gallops, or rubs. RESPIRATORY: Breath sounds equal bilaterally. No accessory muscle use. Poor effort. GASTROINTESTINAL: Abdomen soft, non-tender, nondistended. MUSCULOSKELETAL: No cyanosis, or edema. Moves extremities, does not follow any commands. A/P Problem List: (1) ICH (intracerebral hemorrhage) ICD Code: I61.9 Status: Acute (2) Hypertensive emergency ICD Code: I16.1 Status: Acute (3) Hypokalemia ICD Code: E87.6 Status: Acute (4) Respiratory failure ICD Code: J96.90 Status: Acute Assessment and Plan 61-year-old male with left basal ganglia hemorrhage, intraventricular extension test post placement of ventriculostomy drain. Elevated ICPs. Neurosurgery following. Hospital course was complicated by acute hypoxic and hypercarbic respiratory failure, as well as staph pneumonia, Escherichia coli UTI. Tracheostomy in place, tolerating T piece 09/13. Neuro/Psych: //Left basal ganglia intraparenchymal hemorrhage //s/p Right frontal ventriculostomy placement 08/26 //Possible amyloid angiopathy CT head revealed left basal ganglia intraparenchymal hemorrhage 3.42 cm with extension to lateral ventricle, midline shift 5 mm to the right. Neurosurgery/Dr. Croft. Right frontal twist drill hole ventriculostomy. Neuro checks q1h Goal systolic blood pressure less than 140 continue to watch sodium keep in normal range, prevent hyponatremia Keppra 500 IV every 12 hours each prophylaxis 7 days ICP currently well controlled -- EEG 08/30: generalized slowing, no seizure activity. -Neurosurgery continues to manage. Drain removed. Continue blood pressure control. CV: //Hypertensive emergency -Initially managed with Cardizem drip. Resolved. Continue Hydralazine 100 tid, lisinopril 20 po bid, lopressor 100 bid. catapres 0.3 bid. Good blood pressure control. Resp: //Acute hypoxic and hypercarbic respiratory failure -On tracheostomy, tolerating T piece on 09/13. Consult pulmonology for ongoing management. GI: //Acute Protein Calorie Malnutrition-mild //Constipation Tube feeds with Jevity, having BM, with a PEG tube, tried to call patient's daughter, did not answer. //Hyperglycemia of Critical Illness. Controlled Sliding-scale insulin with Accu-Cheks 3 times a day hours to maintain euglycemia. Low regimen //UTI //Staph pneumonia Continue ceftriaxone. Stop date tomorrow. FEN: //Hypokalemia. Resolved. Monitor. Prophylaxis - GI - Protonix - DVT - SCD Problem Qualifiers (1) ICH (intracerebral hemorrhage): Qualified Code: I61.0 - Nontraumatic subcortical hemorrhage of left cerebral hemisphere (2) Respiratory failure: Qualified Code: J96.00 - Acute respiratory failure, unspecified whether with hypoxia or hypercapnia Julian Mcmanus MD Sep 17, 2016 14:10 Prophylaxis - GI - Protonix - DVT - SCD Discharge Planning Ongoing management by neurosurgery for intracranial hemorrhage. likely inpatient rehabilitation when cleared by neurosurgery. Problem Qualifiers (1) ICH (intracerebral hemorrhage): Qualified Code: I61.0 - Nontraumatic subcortical hemorrhage of left cerebral hemisphere (2) Respiratory failure: Qualified Code: J96.00 - Acute respiratory failure, unspecified whether with hypoxia or hypercapnia Julian Mcmanus MD Sep 17, 2016 14:10
--- NOTE | 2016-09-17 17:52 | HHI.PR ---
Subjective Remarks Not change in mental status.. On a T Bar 28 %. No fever. Tolerates feeds.Output was good. Objective Vital Signs Date Time Temp Pulse Resp B/P Pulse Ox O2 Delivery O2 Flow Rate FiO2 09/17/16 14:00 71 09/17/16 12:00 98.8 79 18 132/76 97 09/17/16 12:00 69 09/17/16 10:00 68 09/17/16 08:00 99.2 73 18 152/79 100 09/17/16 08:00 70 09/17/16 07:38 100 T-piece 5.00 28 09/17/16 07:00 T-Piece 5.00 09/17/16 06:00 77 09/17/16 04:00 76 09/17/16 04:00 98.3 76 20 143/78 98 09/17/16 02:00 77 09/17/16 00:00 83 09/17/16 00:00 98.3 83 21 139/77 98 09/16/16 22:00 72 09/16/16 20:47 99 T-piece 5.00 28 09/16/16 20:00 98.3 77 23 155/81 100 09/16/16 20:00 74 09/16/16 19:00 100 T-Piece 28 09/16/16 18:00 72 I/O 09/16/16 09/16/16 09/16/16 09/17/16 09/17/16 09/17/16 07:00 15:00 23:00 07:00 15:00 23:00 Intake Total 598 ml 852 ml 590 ml 502 ml 785 ml Output Total 750 ml 1043 ml 511 ml 503 ml 650 ml Balance -152 ml -191 ml 79 ml -1 ml 135 ml Intake IV Total 39 ml 120 ml 103 ml Tube Feeding 359 ml 292 ml 260 ml 302 ml 382 ml Other 200 ml 440 ml 330 ml 200 ml 300 ml Output Urine Total 750 ml 1040 ml 500 ml 500 ml 650 ml Drainage Total 0 ml 3 ml 11 ml 3 ml # Voids 1 # Bowel Movements 0 1 Result Diagram: 09/17/16 0359 09/17/16 0359 Objective Remarks This is an averagely built middle-aged man who is poorly responsive on a trach collar. He has weakness of his right extremities. HEENT: Head normocephalic. Pupils sluggishly reactive. Throat is clear. Ears, no inflammation. NECK: Supple without venous distension. No thyromegaly or lymphadenopathy. CHEST: Decreased breath sounds at the bases. Occasional crackles at the right base. HEART: The heart sounds are regular, S1-S2. No murmur. No S3. ABDOMEN: The abdomen is soft, nontender. Bowel sounds are faint. No organomegaly. EXTREMITIES: Weakness and muscle wasting of the extremities. There is some edema of the arm. The patient does withdraw the left extremities to stimuli. Skin was dry and cool. RECTAL: Exam is deferred. Assessment and Plan Assessment and Plan IMPRESSION 1. Status post left basal ganglia intraparenchymal hemorrhage with the right frontal ventriculostomy placement. 2. Acute respiratory failure resolved. 3. Bibasilar atelectasis and pneumonia. 4. History of uncontrolled hypertension. 5. Right hemiplegia. Plan : 1. T Bar 28 %. 2. Trach suction and lavage prn. 3. Nebs bid , duoneb. 4. Cont Rocephin 1 G IV. 5. Tube feeds at 60 Cc. 6. PT evaluation. Lynne White MD Sep 17, 2016 17:52
[2016-09-18] VITALS (12 sets, daily range): BP systolic 103–159; BP diastolic 58–88; PULSE 66–94; RESP 18–25; TEMP 98.5–99.6; O2SAT 97–100
[2016-09-18] MEDS: CHLORHEXIDINE GLUCONATE 2 % 1 PACK (2 CLOTHS) TOP SCH (04:00)
[2016-09-18] MEDS: FREE WATER G-TUBE SCH ×2 (04:00→12:23)
[2016-09-18] MEDS: INSULIN ASPART SUPPLEMENTAL SCALE SQ SCH ×4 (07:00→21:00)
[2016-09-18] MEDS: RESP: ALBUTEROL 2.5 MG/IPRATROPIUM 0.5 MG NEB (SCH) NEB ×2 (07:50→19:30)
--- NOTE | 2016-09-18 09:14 | HHI.NSPN ---
History Chief Complaint: Left basal ganglia hemorrhage Interval History This is a middle-aged gentleman who apparently was brought to [facility] Emergency Room with acute onset of right-sided weakness and slurred speech. He was hypertensive on presentation and had a declining neurologic examination requiring intubation for airway control with ventilator support. CT scan of the head obtained reveals a basal ganglia hemorrhage on the left side measuring about 3.4 cm in diameter. There is also extension of the hemorrhage into the left lateral ventricle. No hydrocephalus is noted, although left temporal horn is dilated. Currently there is no friends or family members here to relate a history and his identity is unknown. 08/27/16: Pt sedated on Diprivan. Not opening eyes. Not following commands. Pupils 2mm bilaterally slight reaction bilaterally. 08/28/16: Pt sedated on Diprivan. Not opening eyes. Pupils 2mm bilaterally slight brisk reaction. Not following commands. 08/29/16: Pt sedated with Diprivan and Fentanyl drips. Not opening eyes. Pupils 2mm bilaterally slight brisk reaction. Not following commands. 09/01/16: Pt off sedation. Not opening eyes. Pupils 3mm bilaterally reactive. Not following commands. Ventriculostomy in place. ICP 18 after stimulation. 09/02/16: Pt off sedation. Not opening eyes to pain. Pupils 3mm bilaterally reactive bilaterally. Not following commands. ICP 11 with ventriculostomy drain at [id number]. 09/03/16: Pt off sedative drips. Not opening eyes. Ventriculostomy drain clamped, reportedly had to be opened multiple times last night. Currently tolerating clamping since 730am. 09/04/16: Pt not opening eyes. Pupils 4mm bilaterally reactive bilaterally. Not following commands. Withdraws UEs to pain. Localizes with LUE to pain in upper chest. 09/05/16: Pt not opening eyes. Pupils 4mm bilaterally reactive bilaterally. Not following commands. Spontaneously moves LUE. Localizes to pain with LUE. Right hemiparesis but withdraws to pain. 09/06/16: Pt not opening eyes. Off sedation. Pupils 4mm bilaterally reactive bilaterally. Not following commands. spontaneously moves LUE. Localizes to pain with LUE. Right hemiparesis. 09/07/16: Pt not opening eyes. No sedation. Pupils 4mm bilaterally, reactive bilaterally. Not following commands. right hemiparesis. Spontaneous movement in LUE and localizes to pain with LUE. 09/08/16: Pt not opening eyes. Pupils 4mm bilaterally. Ventriculostomy had been clamped several times last night but has to be reopened for elevated ICPs. Currently Ventriculostomy at [id number] ICP 19-20. 09/09/16: Pt not opening eyes. Pupils 4mm bilaterally, reactive bilaterally. Ventriculostomy drain at [id number] with bloody CSF drainage. ICPs 9. 09/10/16: Pt not opening eyes. Pupils 4mm bilaterally reactive bilaterally. Ventriculostomy drain at [id number] with bloody CSF drainage. ICP 14. 09/11/16: Pt not opening eyes. Pupils 2mm bilaterally reactive bilaterally. Ventriculostomy drain at [id number] with old bloody CSF drainage. ICP 13-14. 09/12/16: Pt opening eyes today to stimulation. Not following commands. Spontaneously director of coding left hand. Right hemiparesis. 09/15/16: Pt opening eyes slightly to stimulation. Not following commands. Attempts to localize with LUE to pain in upper chest. Right hemiparesis. 09/16/16: Pt opening eyes slightly. Not following commands. Right hemiparesis. Ventriculostomy clamped ICPs teens to occasional above 20 but less than 25. 09/17/16: Pt opening eyes more today. Not following commands. Right hemiparesis. 09/18/16: Pt opens eyes to voice. Not following commands. Right hemiparesis. System Review Comments Not able to obtain given clinical status. Exam Results Vital Signs Date Time Temp Pulse Resp B/P Pulse Ox O2 Delivery O2 Flow Rate FiO2 09/18/16 07:52 98 T-piece 28 09/18/16 06:00 72 09/18/16 04:00 98.7 18 141/76 09/17/16 19:46 5.00 Intake and Output 09/17/16 09/17/16 09/18/16 08:00 16:00 00:00 Intake Total 502 ml 785 ml 613 ml Output Total 503 ml 650 ml 900 ml Balance -1 ml 135 ml -287 ml Physical Examination Resp: Trach in place. CTA bilaterally. Heart: NSR no murmurs Abd: Soft positive bs Skin: No signs of infection at ventriculostomy site. Muscle: Right hemiparesis. Attempts to localize with LUE to pain in upper chest. Neuro: Pt opens eyes spontaneously. Pupils 3mm bilaterally reactive bilaterally. Not following commands. No drainage from ventriculostomy exit site that has [address] Lab, Micro, Other Results 09/17/16 09/17/16 09/18/16 15:00 23:00 07:00 Intake Total 785 ml 613 ml 560 ml Output Total 650 ml 900 ml 400 ml Balance 135 ml -287 ml 160 ml Intake IV Total 103 ml 153 ml Tube Feeding 382 ml 320 ml 460 ml Other 300 ml 140 ml 100 ml Output Urine Total 650 ml 900 ml 400 ml Stool Total 0 ml 0 ml Medical Decision Making Impression and Plan A: 61 y/o M with Left basal ganglia hemorrhage with intraventricular extension with mild hydrocephalus. This is a characteristic of a hypertensive bleed. 2. Unregulated hypertension. 3. Respiratory failure secondary to the intracranial hemorrhage. 4. Fevers 5. UTI gram - julia sensitive to abx 6. sputum staph aureus sensitive to abx. 7. Blood and CSF negative at 72 hours. PLAN Continue with blood pressure control Continue with critical care UTI gram - julia, continue with antibiotic sputum staph aureus continue with antibiotic. Blood and CSF negative at 72 hours. Continue with rehab efforts. Sergey Melton Sep 18, 2016 09:14
[2016-09-18] MEDS: METOPROLOL TARTRATE 50 MG TAB PO SCH (09:45)
[2016-09-18] MEDS: FAMOTIDINE 20 MG TAB NG SCH (09:45)
[2016-09-18] MEDS: DOCUSATE SODIUM 100 MG CAP PO SCH (09:45)
[2016-09-18] MEDS: LISINOPRIL 20 MG TAB PO SCH (09:45)
[2016-09-18] MEDS: BISACODYL 10 MG SUPP RECTAL SCH (09:45)
[2016-09-18] MEDS: LACTULOSE SYRUP 20 GM/30 ML CUP PO SCH ×2 (09:45→21:00)
[2016-09-18] MEDS: POLYETHYLENE GLYCOL 17 GM PKG PO SCH (09:45)
[2016-09-18] MEDS: cloNIDine HCL 0.3 MG TAB PO SCH (09:45)
[2016-09-18] MEDS: ARTIFICIAL TEARS OPTH SOLN 15 ML BTL EACH EYE SCH ×3 (09:46→17:00)
[2016-09-18] MEDS: CHLORHEXIDINE 0.12% (ORAL KIT) 15 ML CUP MT SCH (09:46)
[2016-09-18] MEDS: SODIUM CHLORIDE 0.9% FLUSH 5 ML FLUSH IVF SCH (09:46)
[2016-09-18] MEDS: SODIUM CHLORIDE 0.9% FLUSH 5 ML FLUSH IV FLUSH SCH (09:46)
[2016-09-18] MEDS: BENEPROTEIN POWDER 1 PACK G-TUBE SCH ×3 (09:50→17:00)
[2016-09-18] MEDS: JUVEN POWDER 1 PACK G-TUBE SCH (09:50)
[2016-09-18] MEDS: hydrALAZINE HCL 100 MG TAB PO SCH (12:22)
[2016-09-18] MEDS: cefTRIAXone INJ 1,000 MG in SODIUM CHLORIDE 0.9% INJ 100 ML IV SCH (12:24)
--- NOTE | 2016-09-18 13:23 | HHI.PR ---
Subjective Remarks Follow-up for failure to thrive, hemorrhagic CVA Mental status about the same, no change. Discussed extensively with the patient 's family including [id number], [id number], son over the phone with the patient's over the phone/teleconference. Family including and son agreed to PEG tube placement. Afebrile. Objective Vitals Vital Signs Date Time Temp Pulse Resp B/P Pulse Ox O2 Delivery O2 Flow Rate FiO2 09/18/16 07:52 98 T-piece 28 09/18/16 06:00 72 09/18/16 04:00 98.7 70 18 141/76 98 09/18/16 04:00 70 09/18/16 02:00 68 09/18/16 00:00 98.5 66 20 103/58 98 09/18/16 00:00 66 09/17/16 22:00 72 09/17/16 20:00 100.2 80 14 146/75 99 09/17/16 20:00 80 09/17/16 19:46 99 T-piece 5.00 28 09/17/16 19:00 99 T-Piece 28 Humidified 09/17/16 18:00 87 09/17/16 16:00 86 09/17/16 16:00 99.5 86 18 148/73 99 09/17/16 14:00 71 I/O 09/17/16 09/17/16 09/17/16 09/18/16 09/18/16 09/18/16 06:59 14:59 22:59 06:59 14:59 22:59 Intake Total 502 ml 785 ml 613 ml 560 ml Output Total 503 ml 650 ml 900 ml 400 ml Balance -1 ml 135 ml -287 ml 160 ml Intake IV Total 103 ml 153 ml Tube Feeding 302 ml 382 ml 320 ml 460 ml Other 200 ml 300 ml 140 ml 100 ml Output Urine Total 500 ml 650 ml 900 ml 400 ml Stool Total 0 ml 0 ml Drainage Total 3 ml Result Diagram: 09/17/16 0359 09/17/16 0359 Objective Remarks GENERAL: nonverbal. Does not obey commands. Opens eyes with stimulus. SKIN: Warm and dry. HEAD: Normocephalic. EYES: No scleral icterus. No injection or drainage. NECK: Supple, trachea midline. No JVD CARDIOVASCULAR: Regular rate and rhythm without murmurs, gallops, or rubs. RESPIRATORY: Breath sounds equal bilaterally. No accessory muscle use. Poor effort. GASTROINTESTINAL: Abdomen soft, non-tender, nondistended. MUSCULOSKELETAL: No cyanosis, or edema. Awake, not oriented, Moves extremities, does not follow any commands. Not tracking. A/P Problem List: (1) ICH (intracerebral hemorrhage) ICD Code: I61.9 Status: Acute (2) Hypertensive emergency ICD Code: I16.1 Status: Acute (3) Hypokalemia ICD Code: E87.6 Status: Acute (4) Respiratory failure ICD Code: J96.90 Status: Acute Assessment and Plan 61-year-old male with left basal ganglia hemorrhage, intraventricular extension test post placement of ventriculostomy drain. Left basal ganglia intraparenchymal hemorrhage -s/p Right frontal ventriculostomy placement 08/26, further management per neurosurgery.CT head revealed left basal ganglia intraparenchymal hemorrhage 3.4 2 cm with extension to lateral ventricle, midline shift 5 mm to the right. Goal systolic blood pressure less than 140, continue Keppra, ICP currently controlled. EEG 08/30: generalized slowing, no seizure activity. Neurosurgery continues to manage. Drain removed 09/17/16. Continue blood pressure control. Hypertensive emergency -Initially managed with Cardizem drip. Resolved. Continue Norvasc 10 mg daily, Hydralazine 100 tid, lisinopril 20 po bid, lopressor 100 bid. catapres 0.3 bid. Acute hypoxic and hypercarbic respiratory failure- secondary to Staphylococcus pneumonia, tracheostomy in place, continue T piece. Pulmonary following Escherichia coli UTI-status post treatment Acute protein energy malnutrition- -Tube feeds with Jevity, having BM, needs a PEG tube, discussed extensively with son, , [id number]-[id number] and wosgths-rn-mae , all agreed that patient needs a PEG tube. Consult IR for PEG tube placement Hyperglycemia of Critical Illness-continue sliding scale with attached checks. Prophylaxis - GI - Protonix - DVT - SCD Discharge Planning Will eventually need rehabilitation. Problem Qualifiers (1) ICH (intracerebral hemorrhage): Qualified Code: I61.0 - Nontraumatic subcortical hemorrhage of left cerebral hemisphere (2) Respiratory failure: Qualified Code: J96.00 - Acute respiratory failure, unspecified whether with hypoxia or hypercapnia Julian Mcmanus MD Sep 18, 2016 13:23 Prophylaxis - GI - Protonix - DVT - SCD Problem Qualifiers (1) ICH (intracerebral hemorrhage): Qualified Code: I61.0 - Nontraumatic subcortical hemorrhage of left cerebral hemisphere (2) Respiratory failure: Qualified Code: J96.00 - Acute respiratory failure, unspecified whether with hypoxia or hypercapnia Julian Mcmanus MD Sep 18, 2016 13:23
--- NOTE | 2016-09-18 13:34 | HHI.HCPN ---
Reason for visit a. To assist with evaluation and management of symptoms including: pain, debility, dyspnea b. To assist medical decision maker(s) with: better understanding of current medical conditions; weighing benefits/burdens of medical treatment options; making medical treatment decisions. Subjective/Interval History Mr. Ruiz is more awake today. His eyes open to call of name. When I tell him I have spoken with his daughter Haritha, He raises his eyebrows. He is noting having spontaneous movement of his left arm and leg. Otherwise, he is not following any commands nor tracking with his eyes. He remains on a Tpiece at 5 L. . He is scheduled for a PEG placement tomorrow. His in [place], was contacted via face time with his [id number] present and consent obtained. Labs a more normalized. Vital signs are stable. Advance Directives Living Will: Never completed Health Care Surrogate: Never completed Durable Power of Director Of Athletics: Never completed Advance Directive Specifics Documented care wishes: Full CODE STATUS Objective Vital Signs Date Time Temp Pulse Resp B/P Pulse Ox O2 Delivery O2 Flow Rate FiO2 09/18/16 07:52 98 T-piece 28 09/18/16 06:00 72 09/18/16 04:00 98.7 70 18 141/76 98 09/18/16 04:00 70 09/18/16 02:00 68 09/18/16 00:00 98.5 66 20 103/58 98 09/18/16 00:00 66 09/17/16 22:00 72 09/17/16 20:00 100.2 80 14 146/75 99 09/17/16 20:00 80 09/17/16 19:46 99 T-piece 5.00 28 09/17/16 19:00 99 T-Piece 28 Humidified 09/17/16 18:00 87 09/17/16 16:00 86 09/17/16 16:00 99.5 86 18 148/73 99 09/17/16 14:00 71 Intake & Output 09/18/16 09/18/16 07:00 19:00 Intake Total 1033 ml Output Total 1300 ml Balance -267 ml Intake IV Total 153 ml Tube Feeding 780 ml Other 100 ml Output Urine Total 1300 ml Stool Total 0 ml Physical Exam CONSTITUTIONAL/GENERAL: This is an adequately nourished patient, in no apparent distress. TUBES/LINES/DRAINS: ET tube, [place], central line, orogastric tube SKIN: No jaundice, rashes, or lesions. We'll approximated suture lines to this skull, post ICP line No wounds seen anteriorly. Skin temperature appropriate. Not diaphoretic. HEAD: Atraumatic. Normocephalic. EYES: Pupils equal and round , eyes open spontaneously and will raise eyebrows . Not tracking, No injection or drainage. ENT: Able to adequately assess hearing. Mouth/ Throat without visible erythema , exudates, masses, or lesions. NECK: T tube in place CARDIOVASCULAR: Regular rate and rhythm without murmurs, gallops, or rubs. No JVD. Peripheral pulses symmetric. RESPIRATORY/CHEST: Tpiece at 5 L Anterior rhonchi, posterior diminished mid to base, Symmetric, unlabored respirations. GASTROINTESTINAL: Abdomen soft, non-tender, nondistended. No hepato-splenomegaly , or palpable masses. No guarding. Bowel sounds present. GENITOURINARY: Without palpable bladder distension. Urinary catheter in place. MUSCULOSKELETAL: Extremities without clubbing, cyanosis, or edema. No joint tenderness or effusion noted. No calf tenderness. No mottling or clubbing. LYMPHATICS: No palpable cervical or supraclavicular adenopathy. NEUROLOGICAL: Minimally responsive. Will open eyes to touch or call name. Spontaneous movement of left upper and lower extremities. PSYCHIATRIC: Unable to assess Diagnostic Tests Laboratory Laboratory Tests Test 09/16/16 09/17/16 03:55 03:59 White Blood Count 6.9 TH/MM3 6.1 TH/MM3 (4.0-11.0) (4.0-11.0) Red Blood Count 3.32 MIL/MM3 3.51 MIL/MM3 (4.50-5.90) (4.50-5.90) Hemoglobin 10.8 GM/DL 11.4 GM/DL (13.0-17.0) (13.0-17.0) Hematocrit 31.3 % 33.2 % (39.0-51.0) (39.0-51.0) Mean Corpuscular Volume 94.2 FL 94.7 FL (80.0-100.0) (80.0-100.0) Mean Corpuscular Hemoglobin 32.5 PG 32.4 PG (27.0-34.0) (27.0-34.0) Mean Corpuscular Hemoglobin 34.5 % 34.2 % Concent (32.0-36.0) (32.0-36.0) Red Cell Distribution Width 12.6 % 12.9 % (11.6-17.2) (11.6-17.2) Platelet Count 436 TH/MM3 400 TH/MM3 (150-450) (150-450) Mean Platelet Volume 10.9 FL 10.6 FL (7.0-11.0) (7.0-11.0) Neutrophils (%) (Auto) 66.2 % 61.6 % (16.0-70.0) (16.0-70.0) Lymphocytes (%) (Auto) 17.8 % 19.9 % (9.0-44.0) (9.0-44.0) Monocytes (%) (Auto) 9.5 % (0.0-8.0) 11.4 % (0.0-8.0) Eosinophils (%) (Auto) 5.6 % (0.0-4.0) 6.2 % (0.0-4.0) Basophils (%) (Auto) 0.9 % (0.0-2.0) 0.9 % (0.0-2.0) Neutrophils # (Auto) 4.6 TH/MM3 3.8 TH/MM3 (1.8-7.7) (1.8-7.7) Lymphocytes # (Auto) 1.2 TH/MM3 1.2 TH/MM3 (1.0-4.8) (1.0-4.8) Monocytes # (Auto) 0.7 TH/MM3 0.7 TH/MM3 (0-0.9) (0-0.9) Eosinophils # (Auto) 0.4 TH/MM3 0.4 TH/MM3 (0-0.4) (0-0.4) Basophils # (Auto) 0.1 TH/MM3 0.1 TH/MM3 (0-0.2) (0-0.2) CBC Comment AUTO DIFF DIFF FINAL Differential Total Cells 100 Counted Neutrophils % (Manual) 67 % (16-70) Lymphocytes % 23 % (9-44) Monocytes % 5 % (0-8) Eosinophils % 3 % (0-4) Neutrophils # (Manual) 4.8 TH/MM3 (1.8-7.7) Metamyelocytes 1 % (0-1) Myelocytes 1 % (0-0) Nucleated Red Blood Cells 1 /100 WBC (0-0) Differential Comment FINAL DIFF MANUAL Platelet Estimate NORMAL (NORMAL) Platelet Morphology Comment ENLARGED (NORMAL) Red Cell Morphology Comment NORMAL (NORMAL) Sodium Level 139 MEQ/L 141 MEQ/L (136-145) (136-145) Potassium Level 3.8 MEQ/L 3.9 MEQ/L (3.5-5.1) (3.5-5.1) Chloride Level 103 MEQ/L 103 MEQ/L (98-107) (98-107) Carbon Dioxide Level 31.3 MEQ/L 29.3 MEQ/L (21.0-32.0) (21.0-32.0) Anion Gap 5 MEQ/L (5-15) 9 MEQ/L (5-15) Blood Urea Nitrogen 26 MG/DL (7-18) 27 MG/DL (7-18) Creatinine 0.78 MG/DL 0.66 MG/DL (0.60-1.30) (0.60-1.30) Estimat Glomerular Filtration 101 ML/MIN 123 ML/MIN Rate (>89) (>89) Random Glucose 199 MG/DL 201 MG/DL (74-106) (74-106) Calcium Level 8.9 MG/DL 9.4 MG/DL (8.5-10.1) (8.5-10.1) Result Diagram: 09/17/1635809/17/16358 Assessment and Plan Disease Oriented Problem List: (1) Stroke, hemorrhagic (2) Hypertension Comment: 1. Normalized (3) Global aphasia Comment: Unable to assess level of cognition. Not following commands. (4) Respiratory failure Comment: Now on a T piece with 5 L./ 28% Symptom Scale: (1) Pain 0-10 Scale: Unable to quantify (2) Debility 0-10 Scale: Unable to quantify (3) Dyspnea 0-10 Scale: Unable to quantify Pertinent Non-Medical Issues Psychosocial: Spiritual: Catholicfamily would like to have a grounds manager Legal: Patient is self-pay, case management is attaining SSI as he will need long-term care Ethical issues impacting care: has agreed to participate in decision making. Has been contacted via [phone] with help of her sister Gisel. Important Contacts Haritha Ruiz [phone] - pt's daughter, living in [place]. Haritha's aunt (Mother's sister) Gisel Salgado [phone] Lives in [place]. () lives in [place] - call placed to Haritha to attain - has been contacted via [phone] thru sister Gisel and is willing to participate in decision making. Son, Saulo, Lives in [place] - will get from Haritha. Code Status: Full Code Plan Decision Maker: [place] Statues indicate in the absence of a written HCS, decision making falls to his who lives in [facility]. She has agreed to participate in decision making. She has been reached via [phone] this morning thru her sister Gisel who lives in [place]. Haritha, his Arvind, lives in [place]. Code Status: Full code Family Discussion: call placed to Haritha and Gisel to attain 's phone number. Symptoms: Dyspnea, dysphagia, debility, pain Palliative care phone number provided - will follow during hospital stay. Attestation To help prompt me to consider important information that might be impacting today's encounter and assessment, information from prior notes written by myself or my colleagues may have been "brought forward" into today's note. My signature on this note, however, is an attestation that I personally performed the exam, history, and/or decision-making noted today, and, unless otherwise indicated, the interactions with patient, family, and staff as well as the review of records all occurred today. I also attest that the listed assessment and stated plan reflect my best clinical judgment today based on the combination of historical information, prior notes, and today's exam/ interactions. When time spent is documented, it refers only to time spent today by the signer, or if indicated, combined time spent today by collaborating physician/nurse practitioner. Fara Negron Sep 18, 2016 13:34
--- NOTE | 2016-09-18 17:12 | HHI.PR ---
Subjective Remarks Not change overall. On a T Bar 28 %. No fever. Tolerates feeds. Output was good. Objective Vital Signs Date Time Temp Pulse Resp B/P Pulse Ox O2 Delivery O2 Flow Rate FiO2 09/18/16 08:00 98.5 94 25 159/86 100 09/18/16 08:00 100 T-Piece 28 Humidified 09/18/16 08:00 94 09/18/16 07:52 98 T-piece 28 09/18/16 06:00 72 09/18/16 04:00 98.7 70 18 141/76 98 09/18/16 04:00 70 09/18/16 02:00 68 09/18/16 00:00 98.5 66 20 103/58 98 09/18/16 00:00 66 09/17/16 22:00 72 09/17/16 20:00 100.2 80 14 146/75 99 09/17/16 20:00 80 09/17/16 19:46 99 T-piece 5.00 28 09/17/16 19:00 99 T-Piece 28 Humidified 09/17/16 18:00 87 I/O 09/17/16 09/17/16 09/17/16 09/18/16 09/18/16 09/18/16 07:00 15:00 23:00 07:00 15:00 23:00 Intake Total 502 ml 785 ml 613 ml 560 ml Output Total 503 ml 650 ml 900 ml 400 ml Balance -1 ml 135 ml -287 ml 160 ml Intake IV Total 103 ml 153 ml Tube Feeding 302 ml 382 ml 320 ml 460 ml Other 200 ml 300 ml 140 ml 100 ml Output Urine Total 500 ml 650 ml 900 ml 400 ml Stool Total 0 ml 0 ml Drainage Total 3 ml Result Diagram: 09/17/16 0359 09/17/16 0359 Objective Remarks This is an averagely built middle-aged man who is poorly responsive on a trach collar. He has weakness of his right extremities. HEENT: Head normocephalic. Pupils sluggishly reactive. Throat is clear. Ears, no inflammation. NECK: Supple without venous distension. No thyromegaly or lymphadenopathy. CHEST: Decreased breath sounds at the bases. Occasional crackles at the right base, with wheezes. HEART: The heart sounds are regular, S1-S2. No murmur. No S3. ABDOMEN: The abdomen is soft, nontender. Bowel sounds are faint. No organomegaly. EXTREMITIES: Weakness and muscle wasting of the extremities. There is some edema of the arm. The patient does withdraw the left extremities to stimuli. Skin was dry and cool. RECTAL: Exam is deferred. Assessment and Plan Assessment and Plan IMPRESSION 1. Status post left basal ganglia intraparenchymal hemorrhage with the right frontal ventriculostomy placement. 2. Acute respiratory failure resolved. 3. Bibasilar atelectasis and pneumonia. 4. History of uncontrolled hypertension. 5. Right hemiplegia. Plan : 1. T Bar 28 %. 2. Trach suction and lavage prn. 3. Nebs bid , duoneb. 4. Cont Rocephin 1 G IV X 3 days 5. Tube feeds at 60 Cc. 6. PT evaluation. 7. CXR on Thursday Lynne White MD Sep 18, 2016 17:11
[2016-09-19] VITALS (14 sets, daily range): BP systolic 102–157; BP diastolic 62–85; PULSE 60–82; RESP 14–21; TEMP 98.3–98.9; O2SAT 97–100
[2016-09-19] MEDS: CHLORHEXIDINE 0.12% (ORAL KIT) 15 ML CUP MT SCH ×3 (02:26→20:00)
[2016-09-19] MEDS: LISINOPRIL 20 MG TAB PO SCH ×3 (02:26→21:45)
[2016-09-19] MEDS: FREE WATER G-TUBE SCH ×4 (02:26→20:00)
[2016-09-19] MEDS: JUVEN POWDER 1 PACK G-TUBE SCH ×3 (02:26→21:00)
[2016-09-19] MEDS: DOCUSATE SODIUM 100 MG CAP PO SCH ×3 (02:27→21:45)
[2016-09-19] MEDS: SODIUM CHLORIDE 0.9% FLUSH 5 ML FLUSH IV FLUSH SCH ×3 (02:27→21:45)
[2016-09-19] MEDS: FAMOTIDINE 20 MG TAB NG SCH ×3 (02:27→21:45)
[2016-09-19] MEDS: POLYETHYLENE GLYCOL 17 GM PKG PO SCH ×3 (02:28→21:44)
[2016-09-19] MEDS: METOPROLOL TARTRATE 50 MG TAB PO SCH ×3 (02:28→21:44)
[2016-09-19] MEDS: hydrALAZINE HCL 100 MG TAB PO SCH ×4 (02:28→21:46)
[2016-09-19] MEDS: cloNIDine HCL 0.3 MG TAB PO SCH ×3 (02:29→21:45)
[2016-09-19] MEDS: CHLORHEXIDINE GLUCONATE 2 % 1 PACK (2 CLOTHS) TOP SCH (04:00)
[2016-09-19] MEDS: INSULIN ASPART SUPPLEMENTAL SCALE SQ SCH ×4 (08:00→21:00)
[2016-09-19] MEDS: SODIUM CHLORIDE 0.9% FLUSH 5 ML FLUSH IVF SCH (08:24)
[2016-09-19] MEDS: ARTIFICIAL TEARS OPTH SOLN 15 ML BTL EACH EYE SCH ×3 (08:24→18:55)
[2016-09-19] MEDS: LACTULOSE SYRUP 20 GM/30 ML CUP PO SCH ×2 (08:25→21:44)
[2016-09-19] MEDS: BISACODYL 10 MG SUPP RECTAL SCH (08:25)
[2016-09-19] MEDS: RESP: ALBUTEROL 2.5 MG/IPRATROPIUM 0.5 MG NEB (SCH) NEB (08:48)
[2016-09-19] MEDS: BENEPROTEIN POWDER 1 PACK G-TUBE SCH ×3 (09:00→18:56)
[2016-09-19 12:53] LABS: APTT (PATIENT) 27.6 SEC (24.3-30.1); INTERNATIONAL NORMALIZED RATIO 1.1 RATIO; PROTHROMBIN TIME - PATIENT 11.9 SEC (9.8-11.6)
--- NOTE | 2016-09-19 12:57 | HHI.NSPN ---
(Sergey Melton) History Chief Complaint: Left basal ganglia hemorrhage (Sergey Melton) Interval History This is a middle-aged gentleman who apparently was brought to [facility] Emergency Room with acute onset of right-sided weakness and slurred speech. He was hypertensive on presentation and had a declining neurologic examination requiring intubation for airway control with ventilator support. CT scan of the head obtained reveals a basal ganglia hemorrhage on the left side measuring about 3.4 cm in diameter. There is also extension of the hemorrhage into the left lateral ventricle. No hydrocephalus is noted, although left temporal horn is dilated. Currently there is no friends or family members here to relate a history and his identity is unknown. 08/27/16: Pt sedated on Diprivan. Not opening eyes. Not following commands. Pupils 2mm bilaterally slight reaction bilaterally. 08/28/16: Pt sedated on Diprivan. Not opening eyes. Pupils 2mm bilaterally slight brisk reaction. Not following commands. 08/29/16: Pt sedated with Diprivan and Fentanyl drips. Not opening eyes. Pupils 2mm bilaterally slight brisk reaction. Not following commands. 09/01/16: Pt off sedation. Not opening eyes. Pupils 3mm bilaterally reactive. Not following commands. Ventriculostomy in place. ICP 18 after stimulation. 09/02/16: Pt off sedation. Not opening eyes to pain. Pupils 3mm bilaterally reactive bilaterally. Not following commands. ICP 11 with ventriculostomy drain at [id number]. 09/03/16: Pt off sedative drips. Not opening eyes. Ventriculostomy drain clamped, reportedly had to be opened multiple times last night. Currently tolerating clamping since 730am. 09/04/16: Pt not opening eyes. Pupils 4mm bilaterally reactive bilaterally. Not following commands. Withdraws UEs to pain. Localizes with LUE to pain in upper chest. 09/05/16: Pt not opening eyes. Pupils 4mm bilaterally reactive bilaterally. Not following commands. Spontaneously moves LUE. Localizes to pain with LUE. Right hemiparesis but withdraws to pain. 09/06/16: Pt not opening eyes. Off sedation. Pupils 4mm bilaterally reactive bilaterally. Not following commands. spontaneously moves LUE. Localizes to pain with LUE. Right hemiparesis. 09/07/16: Pt not opening eyes. No sedation. Pupils 4mm bilaterally, reactive bilaterally. Not following commands. right hemiparesis. Spontaneous movement in LUE and localizes to pain with LUE. 09/08/16: Pt not opening eyes. Pupils 4mm bilaterally. Ventriculostomy had been clamped several times last night but has to be reopened for elevated ICPs. Currently Ventriculostomy at [id number] ICP 19-20. 09/09/16: Pt not opening eyes. Pupils 4mm bilaterally, reactive bilaterally. Ventriculostomy drain at [id number] with bloody CSF drainage. ICPs 9. 09/10/16: Pt not opening eyes. Pupils 4mm bilaterally reactive bilaterally. Ventriculostomy drain at [id number] with bloody CSF drainage. ICP 14. 09/11/16: Pt not opening eyes. Pupils 2mm bilaterally reactive bilaterally. Ventriculostomy drain at [id number] with old bloody CSF drainage. ICP 13-14. 09/12/16: Pt opening eyes today to stimulation. Not following commands. Spontaneously rehabilitation services aide left hand. Right hemiparesis. 09/15/16: Pt opening eyes slightly to stimulation. Not following commands. Attempts to localize with LUE to pain in upper chest. Right hemiparesis. 09/16/16: Pt opening eyes slightly. Not following commands. Right hemiparesis. Ventriculostomy clamped ICPs teens to occasional above 20 but less than 25. 09/17/16: Pt opening eyes more today. Not following commands. Right hemiparesis. 09/18/16: Pt opens eyes to voice. Not following commands. Right hemiparesis. 09/19/16: Pt has eyes open. Not following commands. Spontaneously moves left side. Right hemiparesis. (Sergey Melton) Review of Systems General: Negative for: fever, chills, insomnia Respiratory: Negative for: shortness of breath, cough, sputum Cardiovascular: Negative for: chest pain Gastrointestinal: Negative for: nausea, vomitting, diarrhea, constipation ( Sergey Melton) Exam Results Vital Signs Date Time Temp Pulse Resp B/P Pulse Ox O2 Delivery O2 Flow Rate FiO2 09/19/16 12:00 67 09/19/16 12:00 98.6 20 102/62 98 09/19/16 08:48 T-piece 6.00 28 Intake and Output 09/18/16 09/18/16 09/19/16 08:00 16:00 00:00 Intake Total 560 ml 420 ml 495 ml Output Total 400 ml 501 ml 850 ml Balance 160 ml -81 ml -355 ml (Sergey Melton) Physical Examination Resp: Trach in place. CTA bilaterally. Heart: NSR no murmurs Abd: Soft positive bs Skin: No drainage from ventriculostomy exit site that has [address] Muscle: Right hemiparesis. Spontaneously moves left side. Neuro: Pt opens eyes spontaneously. Pupils 3mm bilaterally reactive bilaterally. Not following commands. (Sergey Melton) Lab, Micro, Other Results 09/18/16 09/18/16 09/19/16 15:00 23:00 07:00 Intake Total 420 ml 495 ml 675 ml Output Total 501 ml 850 ml 900 ml Balance -81 ml -355 ml -225 ml Tube Feeding 360 ml 395 ml 475 ml Other 60 ml 100 ml 200 ml Output Urine Total 500 ml 850 ml 900 ml Stool Total 1 ml 0 ml 0 ml (Sergey Melton) Medical Decision Making Impression and Plan A: 61 y/o M with Left basal ganglia hemorrhage with intraventricular extension with mild hydrocephalus. This is a characteristic of a hypertensive bleed. 2. Unregulated hypertension. 3. Respiratory failure secondary to the intracranial hemorrhage. 4. Fevers 5. UTI gram - julia sensitive to abx 6. sputum staph aureus sensitive to abx. 7. Blood and CSF negative at 72 hours. PLAN Continue with blood pressure control Continue with critical care Continue with rehab efforts (Sergey Melton) Attending Statement The exam, history, and the medical decision-making described in the above note were completed with the assistance of the mid-level provider. I reviewed and agree with the findings presented. I attest that I had a [id number] encounter with the patient on the same day, and personally performed and documented my assessment and findings in the medical record. (Jeff Croft MD) Sergey Melton Sep 19, 2016 12:56 Jeff Croft MD Sep 19, 2016 17:34
--- NOTE | 2016-09-19 12:57 | HHI.PR ---
Subjective Remarks Follow-up for poor nutrition, and respiratory failure No change in mental status, does not follow commands. For PEG tube placement today. Objective Vitals Vital Signs Date Time Temp Pulse Resp B/P Pulse Ox O2 Delivery O2 Flow Rate FiO2 09/19/16 12:00 67 09/19/16 12:00 98.6 67 20 102/62 98 09/19/16 10:00 71 09/19/16 08:48 100 T-piece 6.00 28 09/19/16 08:00 98.9 75 21 132/76 97 09/19/16 08:00 75 09/19/16 07:30 97 T-Piece 28 Humidified 09/19/16 06:00 68 09/19/16 04:00 98.7 66 16 121/71 98 09/19/16 04:00 66 09/19/16 02:00 70 09/19/16 00:00 98.7 64 14 108/62 98 09/19/16 00:00 64 09/18/16 22:00 76 09/18/16 20:00 98.8 82 22 152/88 98 09/18/16 20:00 98 T-Piece 28 Humidified 09/18/16 20:00 82 09/18/16 16:00 78 09/18/16 16:00 99.6 78 24 139/77 100 09/18/16 14:00 89 I/O 09/18/16 09/18/16 09/18/16 09/19/16 09/19/16 09/19/16 07:00 15:00 23:00 07:00 15:00 23:00 Intake Total 560 ml 420 ml 495 ml 675 ml 244 ml Output Total 400 ml 501 ml 850 ml 900 ml Balance 160 ml -81 ml -355 ml -225 ml 244 ml Tube Feeding 460 ml 360 ml 395 ml 475 ml 184 ml Other 100 ml 60 ml 100 ml 200 ml 60 ml Output Urine Total 400 ml 500 ml 850 ml 900 ml Stool Total 0 ml 1 ml 0 ml 0 ml Result Diagram: 09/17/1635809/17/16358 Objective Remarks GENERAL: nonverbal. Does not obey commands. Opens eyes with stimulus. SKIN: Warm and dry. HEAD: Normocephalic. EYES: No scleral icterus. No injection or drainage. NECK: Supple, trachea midline. No JVD CARDIOVASCULAR: Regular rate and rhythm without murmurs, gallops, or rubs. RESPIRATORY: Breath sounds equal bilaterally. No accessory muscle use. Poor effort. GASTROINTESTINAL: Abdomen soft, non-tender, nondistended. MUSCULOSKELETAL: No cyanosis, or edema. Awake, not oriented, Moves extremities, does not follow any commands. Not tracking. A/P Problem List: (1) ICH (intracerebral hemorrhage) ICD Code: I61.9 Status: Acute (2) Hypertensive emergency ICD Code: I16.1 Status: Acute (3) Hypokalemia ICD Code: E87.6 Status: Acute (4) Respiratory failure ICD Code: J96.90 Status: Acute Assessment and Plan 61-year-old male with left basal ganglia hemorrhage, intraventricular extension test post placement of ventriculostomy drain. Left basal ganglia intraparenchymal hemorrhage -s/p Right frontal ventriculostomy placement 08/26, further management per neurosurgery.CT head revealed left basal ganglia intraparenchymal hemorrhage 3.4 2 cm with extension to lateral ventricle, midline shift 5 mm to the right. Goal systolic blood pressure less than 140, continue Keppra, ICP currently controlled. EEG 08/30: generalized slowing, no seizure activity. Neurosurgery continues to manage. Drain removed 09/17/16. Continue blood pressure control. Hypertensive emergency -Initially managed with Cardizem drip. Resolved. Continue Norvasc 10 mg daily, Hydralazine 100 tid, lisinopril 20 po bid, lopressor 100 bid. catapres 0.3 bid. Acute hypoxic and hypercarbic respiratory failure- secondary to Staphylococcus pneumonia, tracheostomy in place, continue T piece. Pulmonary following, repeat chest x-ray on Thursday Escherichia coli UTI-status post treatment Acute protein energy malnutrition- -Tube feeds with Jevity, having BM, needs a PEG tube, discussed extensively with son, , [id number] and [id number] , all agreed that patient needs a PEG tube. Consult IR for PEG tube placement, PEG tube placement today. Hyperglycemia of Critical Illness-continue sliding scale with attached checks. Prophylaxis - GI - Protonix - DVT - SCD May transfer to [facility] Discharge Planning Will eventually need rehabilitation. Problem Qualifiers (1) ICH (intracerebral hemorrhage): Qualified Code: I61.0 - Nontraumatic subcortical hemorrhage of left cerebral hemisphere (2) Respiratory failure: Qualified Code: J96.00 - Acute respiratory failure, unspecified whether with hypoxia or hypercapnia Jluian Mcmanus MD Sep 19, 2016 12:57
--- NOTE | 2016-09-19 14:10 | HHI.HCPN ---
Reason for visit a. To assist with evaluation and management of symptoms including: pain, debility, dyspnea b. To assist medical decision maker(s) with: better understanding of current medical conditions; weighing benefits/burdens of medical treatment options; making medical treatment decisions. Subjective/Interval History Mr. Ruiz appears to be deeply asleep compared to yesterday. He does not attempt to open eyes to verbal or tactile stimulation. He does show a Babinski response to foot touch. Otherwise, he appears comfortable. He is scheduled for PEG placement today. No recent labs. CXR shows bibasilar consolidation. Gisel comes to see him daily and is providing his and family with updates. They are hopeful he will recover. Advance Directives Living Will: Never completed Health Care Surrogate: Never completed Durable Power of Ship Officer: Never completed Advance Directive Specifics Documented care wishes: Full CODE STATUS Objective Vital Signs Date Time Temp Pulse Resp B/P Pulse Ox O2 Delivery O2 Flow Rate FiO2 09/19/16 12:00 67 09/19/16 12:00 98.6 67 20 102/62 98 09/19/16 10:00 71 09/19/16 08:48 100 T-piece 6.00 28 09/19/16 08:00 98.9 75 21 132/76 97 09/19/16 08:00 75 09/19/16 07:30 97 T-Piece 28 Humidified 09/19/16 06:00 68 09/19/16 04:00 98.7 66 16 121/71 98 09/19/16 04:00 66 09/19/16 02:00 70 09/19/16 00:00 98.7 64 14 108/62 98 09/19/16 00:00 64 09/18/16 22:00 76 09/18/16 20:00 98.8 82 22 152/88 98 09/18/16 20:00 98 T-Piece 28 Humidified 09/18/16 20:00 82 09/18/16 16:00 78 09/18/16 16:00 99.6 78 24 139/77 100 09/18/16 14:00 89 Intake & Output 09/19/16 09/19/16 06:59 18:59 Intake Total 1170 ml 244 ml Output Total 1750 ml Balance -580 ml 244 ml Tube Feeding 870 ml 184 ml Other 300 ml 60 ml Output Urine Total 1750 ml Stool Total 0 ml Physical Exam CONSTITUTIONAL/GENERAL: This is an adequately nourished patient, in no apparent distress. TUBES/LINES/DRAINS: ET tube, [place], central line, orogastric tube SKIN: No jaundice, rashes, or lesions. Well approximated suture lines to this skull, post ICP line No wounds seen anteriorly. Skin temperature appropriate. Not diaphoretic. HEAD: Atraumatic. Normocephalic. EYES: Pupils equal and round , reactive, Not tracking, ENT: Able to adequately assess hearing. Mouth/ Throat without visible erythema , exudates, masses, or lesions. NECK: T tube in place CARDIOVASCULAR: Regular rate and rhythm without murmurs, gallops, or rubs. No JVD. Peripheral pulses symmetric. RESPIRATORY/CHEST: Tpiece at 5 L Anterior rhonchi, posterior diminished mid to base, Symmetric, unlabored respirations. GASTROINTESTINAL: Abdomen soft, non-tender, nondistended. No hepato-splenomegaly , or palpable masses. No guarding. Bowel sounds present. GENITOURINARY: Without palpable bladder distension. Urinary catheter in place. MUSCULOSKELETAL: Extremities without clubbing, cyanosis, or edema. No joint tenderness or effusion noted. No calf tenderness. No mottling or clubbing. LYMPHATICS: No palpable cervical or supraclavicular adenopathy. NEUROLOGICAL: Minimally responsive. Will open eyes to touch or call name. Spontaneous movement of left upper and lower extremities. PSYCHIATRIC: Unable to assess Diagnostic Tests Laboratory Laboratory Tests Test 09/17/16 09/19/16 03:59 12:27 White Blood Count 6.1 TH/MM3 (4.0-11.0) Red Blood Count 3.51 MIL/MM3 (4.50-5.90) Hemoglobin 11.4 GM/DL (13.0-17.0) Hematocrit 33.2 % (39.0-51.0) Mean Corpuscular Volume 94.7 FL (80.0-100.0) Mean Corpuscular Hemoglobin 32.4 PG (27.0-34.0) Mean Corpuscular Hemoglobin 34.2 % Concent (32.0-36.0) Red Cell Distribution Width 12.9 % (11.6-17.2) Platelet Count 400 TH/MM3 (150-450) Mean Platelet Volume 10.6 FL (7.0-11.0) Neutrophils (%) (Auto) 61.6 % (16.0-70.0) Lymphocytes (%) (Auto) 19.9 % (9.0-44.0) Monocytes (%) (Auto) 11.4 % (0.0-8.0) Eosinophils (%) (Auto) 6.2 % (0.0-4.0) Basophils (%) (Auto) 0.9 % (0.0-2.0) Neutrophils # (Auto) 3.8 TH/MM3 (1.8-7.7) Lymphocytes # (Auto) 1.2 TH/MM3 (1.0-4.8) Monocytes # (Auto) 0.7 TH/MM3 (0-0.9) Eosinophils # (Auto) 0.4 TH/MM3 (0-0.4) Basophils # (Auto) 0.1 TH/MM3 (0-0.2) CBC Comment DIFF FINAL Differential Comment Sodium Level 141 MEQ/L (136-145) Potassium Level 3.9 MEQ/L (3.5-5.1) Chloride Level 103 MEQ/L (98-107) Carbon Dioxide Level 29.3 MEQ/L (21.0-32.0) Anion Gap 9 MEQ/L (5-15) Blood Urea Nitrogen 27 MG/DL (7-18) Creatinine 0.66 MG/DL (0.60-1.30) Estimat Glomerular Filtration 123 ML/MIN Rate (>89) Random Glucose 201 MG/DL (74-106) Calcium Level 9.4 MG/DL (8.5-10.1) Prothrombin Time 11.9 SEC (9.8-11.6) Prothromb Time International 1.1 RATIO Ratio Activated Partial 27.6 SEC Thromboplast Time (24.3-30.1) Result Diagram: 09/17/16 0359 09/17/16 035 Imaging Last [address] 09/17/16599 Signed Impressions: Service Date/Time: Saturday, September 17, 2016 04:14 - CONCLUSION: 1. Slightly evolving left basal ganglia hemorrhage with surrounding edema and mass effect similar to September 08. Right frontal ventriculostomy tube unchanged. Right ventricular size relatively stable. Bishop Fulton MD Chest X-Ray 09/17/16599 Signed Impressions: Service Date/Time: Saturday, September 17, 2016 04:06 - CONCLUSION: 1. Basilar airspace consolidation. No effusion. No pneumothorax. Bishop Fulton MD Procedures PEG 09/19/16 Assessment and Plan Disease Oriented Problem List: (1) Stroke, hemorrhagic (2) Global aphasia Comment: Unable to assess level of cognition. Not following commands. (3) Respiratory failure Comment: Now on a T piece with 5 L./ 28% (4) Hypertension Comment: 1. Normalized Symptom Scale: (1) Pain 0-10 Scale: Unable to quantify (2) Debility 0-10 Scale: Unable to quantify (3) Dyspnea 0-10 Scale: Unable to quantify Pertinent Non-Medical Issues Psychosocial: No local family, Spiritual: Catholicfamily would like to have a reservations sales agent Legal: Patient is self-pay, case management is attaining SSI as he will need long-term care Ethical issues impacting care: has agreed to participate in decision making. Has been contacted via [facility] with help of her sister Gisel. . . Important Contacts Jodie García, , (lives in [place]) - Haritha Ruiz [phone] - pt's daughter, living in [place]. Boni Ruiz, son, Lives in [place] - [phone] Gisel Salgado, (Mother's sister), Lives in [place]. . Prognosis Guarded - At this point, remains on T-Piece w 5L, feeding tube, While he will open his eyes and have spontaneous movement of L upper and lower extremities, he remains with global aphasia. Ability for rehab is limited. . Code Status: Full Code Plan Decision Maker: [place] Statues indicate in the absence of a written HCS, decision making falls to his who lives in [facility]. She has agreed to participate in decision making. Code Status: Full code Family Discussion: Symptoms: Dyspnea, dysphagia, debility, pain Palliative care phone number provided - will follow during hospital stay. . Attestation To help prompt me to consider important information that might be impacting today's encounter and assessment, information from prior notes written by myself or my colleagues may have been "brought forward" into today's note. My signature on this note, however, is an attestation that I personally performed the exam, history, and/or decision-making noted today, and, unless otherwise indicated, the interactions with patient, family, and staff as well as the review of records all occurred today. I also attest that the listed assessment and stated plan reflect my best clinical judgment today based on the combination of historical information, prior notes, and today's exam/ interactions. When time spent is documented, it refers only to time spent today by the signer, or if indicated, combined time spent today by collaborating physician/nurse practitioner. Fara Negron Sep 19, 2016 14:10
[2016-09-19] MEDS ORDERED: MIDAZOLAM HCL 5 MG/5 ML VIAL ONE (15:56)
[2016-09-19] MEDS ORDERED: fentaNYL CITRATE 250 MCG/5 ML AMP ONE (15:56)
[2016-09-19] MEDS ORDERED: GLUCAGON 1 MG/ML VIAL ONE (16:09)
--- NOTE | 2016-09-19 16:41 | PD.RAD ---
Post Procedure Progress Note Pre Procedure Diagnosis: (1) Hemorrhagic stroke Post Procedure Diagnosis: (1) Hemorrhagic stroke Procedure Date: Sep 19, 2016 Supervising Radiologist: Chaitanya Rondon Proceduralist/Assist: Soni Lemon RT(R)(), Jalil Martínez RT(R)() Anesthesia: Conscious Sedation Plan of Activity Patient to Unit: Critical Care Patient Condition: Poor See PACS Report for procedural detail/treatment Feeding Tube Gastrostomy Placement Chaitanya Rondon MD Sep 19, 2016 16:41
[2016-09-19] MEDS ORDERED: IOHEXOL 350 MG/ML 50 ML BTL (for RAD DIAG) G-TUBE ONE (16:52)
[2016-09-19] MEDS: RESP: ALBUTEROL 2.5 MG/IPRATROPIUM 0.5 MG NEB (PRN) INH (20:54)
[2016-09-19] MEDS: ACETAMINOPHEN 325 MG TAB PO PRN (21:45)
[2016-09-20] VITALS (15 sets, daily range): BP systolic 116–156; BP diastolic 69–85; PULSE 62–94; RESP 16–22; TEMP 97.6–99.1; O2SAT 97–98
[2016-09-20] MEDS: FREE WATER G-TUBE SCH ×3 (04:00→20:00)
[2016-09-20] MEDS: CHLORHEXIDINE GLUCONATE 2 % 1 PACK (2 CLOTHS) TOP SCH (04:00)
[2016-09-20] MEDS: hydrALAZINE HCL 100 MG TAB PO SCH ×3 (06:00→21:11)
[2016-09-20] MEDS: INSULIN ASPART SUPPLEMENTAL SCALE SQ SCH ×4 (06:54→21:00)
[2016-09-20] MEDS: CHLORHEXIDINE 0.12% (ORAL KIT) 15 ML CUP MT SCH ×2 (08:38→20:00)
[2016-09-20] MEDS: ARTIFICIAL TEARS OPTH SOLN 15 ML BTL EACH EYE SCH ×3 (08:39→17:16)
[2016-09-20] MEDS: JUVEN POWDER 1 PACK G-TUBE SCH ×2 (08:39→21:00)
[2016-09-20] MEDS: BENEPROTEIN POWDER 1 PACK G-TUBE SCH ×3 (08:39→17:16)
[2016-09-20] MEDS: cloNIDine HCL 0.3 MG TAB PO SCH ×2 (08:40→21:10)
[2016-09-20] MEDS: POLYETHYLENE GLYCOL 17 GM PKG PO SCH ×2 (08:40→21:00)
[2016-09-20] MEDS: FAMOTIDINE 20 MG TAB NG SCH ×2 (08:40→21:10)
[2016-09-20] MEDS: DOCUSATE SODIUM 100 MG CAP PO SCH ×2 (08:40→21:00)
[2016-09-20] MEDS: SODIUM CHLORIDE 0.9% FLUSH 5 ML FLUSH IVF SCH (08:40)
[2016-09-20] MEDS: SODIUM CHLORIDE 0.9% FLUSH 5 ML FLUSH IV FLUSH SCH ×2 (08:40→21:00)
[2016-09-20] MEDS: METOPROLOL TARTRATE 50 MG TAB PO SCH ×2 (08:40→21:10)
[2016-09-20] MEDS: BISACODYL 10 MG SUPP RECTAL SCH (08:40)
[2016-09-20] MEDS: LACTULOSE SYRUP 20 GM/30 ML CUP PO SCH ×2 (08:41→21:00)
[2016-09-20] MEDS: LISINOPRIL 20 MG TAB PO SCH ×2 (08:43→21:10)
--- NOTE | 2016-09-20 13:41 | HHI.PR ---
Subjective Remarks Follow-up for CVA, failure to thrive PEG tube inserted yesterday, no change in mental status, no new neurologic deficits. Creatinine stable. Afebrile. Objective Vitals Vital Signs Date Time Temp Pulse Resp B/P Pulse Ox O2 Delivery O2 Flow Rate FiO2 09/20/16 12:00 75 09/20/16 12:00 98.7 75 18 124/71 97 09/20/16 10:00 72 09/20/16 08:00 82 09/20/16 08:00 98.8 82 18 146/85 98 09/20/16 07:46 98 T-piece 5.00 28 09/20/16 07:00 98 T-Piece 28 09/20/16 06:00 79 09/20/16 04:00 66 09/20/16 04:00 98.2 74 16 156/84 97 09/20/16 02:00 70 09/20/16 00:00 97.6 62 22 156/81 98 09/20/16 00:00 66 09/19/16 22:00 60 09/19/16 20:54 98 T-piece 6.00 28 09/19/16 20:00 82 09/19/16 20:00 98.3 82 15 157/85 98 09/19/16 19:00 98 T-Piece 28 Humidified 09/19/16 18:00 75 09/19/16 16:00 75 09/19/16 16:00 98.6 75 17 140/81 98 09/19/16 14:00 75 I/O 09/19/16 09/19/16 09/19/16 09/20/16 09/20/16 09/20/16 07:00 15:00 23:00 07:00 15:00 23:00 Intake Total 675 ml 274 ml 200 ml 200 ml Output Total 900 ml 401 ml 200 ml 500 ml Balance -225 ml -127 ml 0 ml -300 ml Tube Feeding 475 ml 184 ml 0 ml 0 ml Other 200 ml 90 ml 200 ml 200 ml Output Urine Total 900 ml 400 ml 200 ml 500 ml Stool Total 0 ml 1 ml # Voids 2 # Bowel Movements 0 0 Result Diagram: 09/17/16 0359 09/17/16 0359 Objective Remarks GENERAL: nonverbal. Does not obey commands. Opens eyes with stimulus. SKIN: Warm and dry. HEAD: Normocephalic. EYES: No scleral icterus. No injection or drainage. NECK: Supple, trachea midline. No JVD CARDIOVASCULAR: Regular rate and rhythm without murmurs, gallops, or rubs. RESPIRATORY: Breath sounds equal bilaterally. No accessory muscle use. Poor effort. GASTROINTESTINAL: Abdomen soft, non-tender, nondistended. MUSCULOSKELETAL: No cyanosis, or edema. Awake, not oriented, Moves extremities, does not follow any commands. Not tracking. A/P Problem List: (1) ICH (intracerebral hemorrhage) ICD Code: I61.9 Status: Acute (2) Hypertensive emergency ICD Code: I16.1 Status: Acute (3) Hypokalemia ICD Code: E87.6 Status: Acute (4) Respiratory failure ICD Code: J96.90 Status: Acute Assessment and Plan 61-year-old male with left basal ganglia hemorrhage, intraventricular extension test post placement of ventriculostomy drain. Left basal ganglia intraparenchymal hemorrhage -s/p Right frontal ventriculostomy placement 08/26, further management per neurosurgery.CT head revealed left basal ganglia intraparenchymal hemorrhage 3.4 2 cm with extension to lateral ventricle, midline shift 5 mm to the right. Goal systolic blood pressure less than 140, continue Keppra, ICP currently controlled. EEG 08/30: generalized slowing, no seizure activity. Neurosurgery continues to manage. Drain removed 09/17/16. Continue blood pressure control. Hypertensive emergency -Initially managed with Cardizem drip. Resolved. Continue Norvasc 10 mg daily, Hydralazine 100 tid, lisinopril 20 po bid, lopressor 100 bid. catapres 0.3 bid. Acute hypoxic and hypercarbic respiratory failure- secondary to Staphylococcus pneumonia, tracheostomy in place, continue T piece. Pulmonary following, repeat chest x-ray on Thursday Escherichia coli UTI-status post treatment Acute protein energy malnutrition- -Tube feeds with Jevity, having BM, status post PEG tube placement by IR, received clearance for use today from Dr. Rondon. Start Glucerna. Consult physical therapy, out of bed. Hyperglycemia of Critical Illness-continue sliding scale with attached checks. Prophylaxis - GI - Protonix - DVT - SCD May transfer to [facility], consult case management. Discharged to [place] tomorrow Discharge Planning Will eventually need rehabilitation. Problem Qualifiers (1) ICH (intracerebral hemorrhage): Qualified Code: I61.0 - Nontraumatic subcortical hemorrhage of left cerebral hemisphere (2) Respiratory failure: Qualified Code: J96.00 - Acute respiratory failure, unspecified whether with hypoxia or hypercapnia Julian Mcmanus MD Sep 20, 2016 13:41
[2016-09-20] MEDS: RESP: ALBUTEROL 2.5 MG/IPRATROPIUM 0.5 MG NEB (SCH) INH (19:31)
[2016-09-21] VITALS (10 sets, daily range): BP systolic 116–154; BP diastolic 65–91; PULSE 69–122; RESP 18–22; TEMP 97.8–100.1; O2SAT 87–98
[2016-09-21] MEDS: FREE WATER G-TUBE SCH ×3 (04:00→21:57)
[2016-09-21] MEDS: CHLORHEXIDINE GLUCONATE 2 % 1 PACK (2 CLOTHS) TOP SCH (04:24)
[2016-09-21] MEDS: INSULIN ASPART SUPPLEMENTAL SCALE SQ SCH ×4 (06:17→21:59)
[2016-09-21] MEDS: hydrALAZINE HCL 100 MG TAB PO SCH ×3 (06:17→22:58)
[2016-09-21] MEDS: CHLORHEXIDINE 0.12% (ORAL KIT) 15 ML CUP MT SCH ×2 (08:00→20:00)
[2016-09-21] MEDS: RESP: ALBUTEROL 2.5 MG/IPRATROPIUM 0.5 MG NEB (SCH) INH ×3 (08:22→19:32)
[2016-09-21] MEDS: ARTIFICIAL TEARS OPTH SOLN 15 ML BTL EACH EYE SCH ×3 (09:00→16:28)
[2016-09-21] MEDS: BENEPROTEIN POWDER 1 PACK G-TUBE SCH ×3 (09:00→16:29)
[2016-09-21] MEDS: JUVEN POWDER 1 PACK G-TUBE SCH ×2 (09:00→21:57)
--- NOTE | 2016-09-21 09:23 | HHI.PR ---
Subjective Remarks Follow-up for failure to thrive Tube feeds almost at goal, no change in mental status, no change in a neurologic deficits. No overnight events. Poor historian. Afebrile. Objective Vitals Vital Signs Date Time Temp Pulse Resp B/P Pulse Ox O2 Delivery O2 Flow Rate FiO2 09/21/16 08:25 91 T-piece 28 09/21/16 08:00 99.0 106 20 139/67 87 09/21/16 04:00 97.9 82 22 136/65 98 09/21/16 03:38 69 09/21/16 00:00 97.8 69 22 116/73 97 09/20/16 23:00 T-Piece 09/20/16 21:55 97.8 69 22 116/73 97 09/20/16 21:51 89 09/20/16 20:00 99.0 94 16 131/74 97 09/20/16 20:00 89 09/20/16 19:31 97 T-piece 6.00 28 09/20/16 19:00 98 T-Piece 28 09/20/16 18:00 80 09/20/16 16:00 81 09/20/16 16:00 99.1 81 20 118/69 98 09/20/16 14:00 77 09/20/16 12:00 75 09/20/16 12:00 98.7 75 18 124/71 97 09/20/16 10:00 72 I/O 09/20/16 09/20/16 09/20/16 09/21/16 09/21/16 09/21/16 07:00 15:00 23:00 07:00 15:00 23:00 Intake Total 200 ml 300 ml 240 ml 99 ml Output Total 500 ml 400 ml 600 ml 400 ml Balance -300 ml -100 ml -360 ml -301 ml Intake IV Total 0 ml Tube Feeding 0 ml 40 ml 99 ml Other 200 ml 300 ml 200 ml Output Urine Total 500 ml 400 ml 600 ml 400 ml Tube Feeding Residual Discard 0 ml # Bowel Movements 0 1 2 Result Diagram: 09/17/16 0359 09/17/16 0359 Objective Remarks GENERAL: Not in distress, nonverbal. EYES: No scleral icterus. No injection or drainage. NECK: Supple, trachea midline. No JVD CARDIOVASCULAR: Regular rate and rhythm without murmurs, gallops, or rubs. RESPIRATORY: Breath sounds equal bilaterally. No accessory muscle use. Poor effort. GASTROINTESTINAL: Abdomen soft, non-tender, nondistended. MUSCULOSKELETAL: No cyanosis, or edema. Awake, not oriented, does not follow any commands. Opens eyes with noxious stimulus, Not tracking. Positive for right hemiparesis. A/P Problem List: (1) ICH (intracerebral hemorrhage) ICD Code: I61.9 Status: Acute (2) Hypertensive emergency ICD Code: I16.1 Status: Acute (3) Hypokalemia ICD Code: E87.6 Status: Acute (4) Respiratory failure ICD Code: J96.90 Status: Acute Assessment and Plan 61-year-old male with left basal ganglia hemorrhage, intraventricular extension test post placement of ventriculostomy drain. Left basal ganglia intraparenchymal hemorrhage -s/p Right frontal ventriculostomy placement 08/26, CT head revealed left basal ganglia intraparenchymal hemorrhage 3.42 cm with extension to lateral ventricle , midline shift 5 mm to the right. Goal systolic blood pressure less than 140, continue Keppra, ICP currently controlled. EEG 08/30: generalized slowing, no seizure activity. Neurosurgery continues to manage. Drain removed 09/17/16. Continue blood pressure control. Need to decrease Keppra, will check with neurosurgery. Hypertensive emergency -Initially managed with Cardizem drip. Resolved. Continue Norvasc 10 mg daily, Hydralazine 100 tid, lisinopril 20 po bid, lopressor 100 bid. catapres 0.3 bid. Acute hypoxic and hypercarbic respiratory failure- secondary to Staphylococcus pneumonia, tracheostomy in place, continue T piece. Pulmonary following, repeat chest x-ray tomorrow. Escherichia coli UTI-status post treatment Failure to thrive, protein energy malnutrition- -Tube feeds , having BM, status post PEG tube placement by IR 09/19/16, continue Glucerna, also at goal. Consult physical therapy, out of bed. Hyperglycemia of Critical Illness-continue sliding scale with attached checks. Prophylaxis - GI - Protonix - DVT - SCD Discussed with RN. Discharge Planning SSI pending, discharge to rehabilitation once placement available. Problem Qualifiers (1) ICH (intracerebral hemorrhage): Qualified Code: I61.0 - Nontraumatic subcortical hemorrhage of left cerebral hemisphere (2) Respiratory failure: Qualified Code: J96.00 - Acute respiratory failure, unspecified whether with hypoxia or hypercapnia Julian Mcmanus MD Sep 21, 2016 09:23
[2016-09-21] MEDS: DOCUSATE SODIUM 100 MG CAP PO SCH ×2 (10:12→21:58)
[2016-09-21] MEDS: LACTULOSE SYRUP 20 GM/30 ML CUP PO SCH ×2 (10:12→21:58)
[2016-09-21] MEDS: FAMOTIDINE 20 MG TAB NG SCH ×2 (10:12→21:58)
[2016-09-21] MEDS: METOPROLOL TARTRATE 50 MG TAB PO SCH ×2 (10:12→21:58)
[2016-09-21] MEDS: LISINOPRIL 20 MG TAB PO SCH ×2 (10:13→21:57)
[2016-09-21] MEDS: BISACODYL 10 MG SUPP RECTAL SCH (10:13)
[2016-09-21] MEDS: cloNIDine HCL 0.3 MG TAB PO SCH ×2 (10:13→22:59)
[2016-09-21] MEDS: SODIUM CHLORIDE 0.9% FLUSH 5 ML FLUSH IV FLUSH SCH ×2 (10:14→21:58)
[2016-09-21] MEDS: SODIUM CHLORIDE 0.9% FLUSH 5 ML FLUSH IVF SCH (10:14)
[2016-09-21] MEDS: POLYETHYLENE GLYCOL 17 GM PKG PO SCH ×2 (10:14→21:58)
[2016-09-22] VITALS (10 sets, daily range): BP systolic 127–162; BP diastolic 76–87; PULSE 90–126; RESP 18–24; TEMP 96.3–100.1; O2SAT 93–100
[2016-09-22] MEDS: FREE WATER G-TUBE SCH ×3 (04:02→20:00)
[2016-09-22] MEDS: CHLORHEXIDINE GLUCONATE 2 % 1 PACK (2 CLOTHS) TOP SCH (04:02)
[2016-09-22] MEDS: INSULIN ASPART SUPPLEMENTAL SCALE SQ SCH ×4 (05:49→21:07)
[2016-09-22] MEDS: hydrALAZINE HCL 100 MG TAB PO SCH ×3 (05:50→16:54)
[2016-09-22] MEDS: CHLORHEXIDINE 0.12% (ORAL KIT) 15 ML CUP MT SCH ×2 (08:00→20:00)
--- NOTE | 2016-09-22 08:10 | RADRPT ---
EXAM DATE/TIME: 09/22/2016 06:26 [facility] COMPARISON: CHEST SINGLE AP, September 17, 2016, 4:06. INDICATIONS: Short of breath MEDICAL HISTORY: Left basal ganglia bleed SURGICAL HISTORY: Tracheostomy ENCOUNTER: Subsequent ACUITY: 3 weeks PAIN SCORE: Non-responsive. LOCATION: Bilateral chest FINDINGS: Trache tube is in good position. There has been improvement with better aeration. Minimal bibasilar parenchymal changes persist, slightly worse on the left than the right. There is no pneumothorax. He art remains enlarged. CONCLUSION: 1. Overall there has been improvement. 2. Minimal bibasilar parenchymal changes persist. Vargas Freitas MD FACR on September 22, 2016 at 7:23 Board Certified Radiologist. This report was verified electronically.
[2016-09-22] MEDS: METOPROLOL TARTRATE 50 MG TAB PO SCH ×2 (08:53→21:25)
[2016-09-22] MEDS: POLYETHYLENE GLYCOL 17 GM PKG PO SCH ×2 (08:53→21:05)
[2016-09-22] MEDS: LACTULOSE SYRUP 20 GM/30 ML CUP PO SCH ×2 (08:53→21:04)
[2016-09-22] MEDS: FAMOTIDINE 20 MG TAB NG SCH ×2 (08:53→21:05)
[2016-09-22] MEDS: DOCUSATE SODIUM 100 MG CAP PO SCH ×2 (08:53→21:05)
[2016-09-22] MEDS: LISINOPRIL 20 MG TAB PO SCH ×2 (08:54→21:05)
[2016-09-22] MEDS: SODIUM CHLORIDE 0.9% FLUSH 5 ML FLUSH IV FLUSH SCH ×2 (08:54→21:06)
[2016-09-22] MEDS: SODIUM CHLORIDE 0.9% FLUSH 5 ML FLUSH IVF SCH (08:54)
[2016-09-22] MEDS: BISACODYL 10 MG SUPP RECTAL SCH (08:55)
[2016-09-22] MEDS: BENEPROTEIN POWDER 1 PACK G-TUBE SCH ×3 (08:56→16:55)
[2016-09-22] MEDS: ARTIFICIAL TEARS OPTH SOLN 15 ML BTL EACH EYE SCH ×3 (08:57→16:54)
[2016-09-22] MEDS: JUVEN POWDER 1 PACK G-TUBE SCH ×2 (08:57→21:00)
[2016-09-22] MEDS: RESP: ALBUTEROL 2.5 MG/IPRATROPIUM 0.5 MG NEB (SCH) INH ×3 (09:02→19:27)
[2016-09-22] MEDS: cloNIDine HCL 0.3 MG TAB PO SCH ×2 (11:51→21:05)
--- NOTE | 2016-09-22 12:20 | RADRPT ---
EXAM DATE/TIME: 09/19/2016 16:01 [facility] COMPARISON: No previous studies available for comparison. INDICATIONS : Patient is in need of placement of a gastrostomy tube due to failure to thrive. MEDICAL HISTORY : History of hemorrhagic CVA, HTN, acute respiratory failure, pneumonia. SURGICAL HISTORY : History of ventriculostomy drain, tracheostomy. ENCOUNTER: Initial ACUITY: 3 weeks PAIN SCORE: 0/10 FLUORO TIME: 1.0 minutes IMAGE SERIES: 1 SEDATION TIME: 30 minutes CONTRAST: 7 cc Omnipaque (iohexol) 350 MEDICATION(S): 1.) 1 mg midazolam (Versed) IV 2.) 50 mcg Fentanyl (Sublimaze) IV 3.) 1 mg glucagon (Gluca-Gen) IV DEVICE(S): 1.) 18 Fr gastrostomy tube PROCEDURE : 1. Limited abdominal ultrasound. 2. Fluoroscopically guided gastrostomy tube placement. 3. Conscious sedation with continuous EKG and oximetry monitoring. The risks, benefits and alternatives to the procedure were explained and verbal and written consent w as obtained. The site was prepped in sterile fashion. Full sterile technique was used, including ca p, mask, sterile gloves and gown and a large sterile sheet. Hand hygiene and 2% chlorhexidine and/or betadine/alcohol prep was utilized per protocol for cutaneous antisepsis. The skin and subcutaneous tissues were infiltrated with local anesthetic solution. Ultrasound was used to nelson the position of the liver. The stomach was insufflated with room air. Th ree percutaneous fasteners were placed to secure the anterior gastric wall. A small incision was made between the fasteners. The stomach was accessed with an 18 gauge needle. A n 0.035 wire was advanced into the small bowel. The tract was dilated. The gastrostomy tube was int roduced through a peel-away sheath. The position was confirmed with an injection of contrast. Conscious sedation was performed with the prescribed dosages and duration as above in the presence of an independent trained radiology nurse to assist in the monitoring of the patient. EKG and oximetry remained stable throughout the procedure. The patient tolerated the procedure well and there were n o complications. The patient was sent to post anesthesia recovery in stable condition. CONCLUSION: Uncomplicated gastrostomy tube placement as above. Chaitanya Rondon MD on September 22, 2016 at 12:18 Board Certified Radiologist. This report was verified electronically.
--- NOTE | 2016-09-22 15:25 | HHI.PR ---
Subjective Remarks Follow for hypertension Blood pressure relatively stable. No overnight events, tube feeds at goal. No change in mental status. Objective Vitals Vital Signs Date Time Temp Pulse Resp B/P Pulse Ox O2 Delivery O2 Flow Rate FiO2 09/22/16 09:02 94 Trach Collar 35 09/22/16 08:00 99.2 106 20 150/81 93 09/22/16 07:00 95 T-Piece 6.00 28 09/22/16 04:40 94 T-piece 40 09/22/16 04:00 96.3 99 24 100 09/22/16 04:00 98.6 99 24 142/78 100 09/22/16 03:36 126 09/22/16 00:47 98.5 92 18 162/87 94 09/21/16 22:00 T-Piece 6.00 09/21/16 21:40 99.1 122 18 154/91 93 09/21/16 19:32 93 T-piece 35 09/21/16 16:00 100.1 97 20 128/72 94 I/O 09/21/16 09/21/16 09/21/16 09/22/16 09/22/16 09/22/16 07:00 15:00 23:00 07:00 15:00 23:00 Intake Total 99 ml 0 ml 901 ml 387 ml Output Total 400 ml 350 ml 400 ml Balance -301 ml -350 ml 501 ml 387 ml Intake Oral 0 ml Tube Feeding 99 ml 901 ml 287 ml Other 100 ml Output Urine Total 400 ml 350 ml 400 ml # Voids 100 # Bowel Movements 0 0 Objective Remarks GENERAL: Not in distress, nonverbal. EYES: No scleral icterus. No injection or drainage. NECK: Supple, trachea midline. No JVD CARDIOVASCULAR: Regular rate and rhythm without murmurs, gallops, or rubs. RESPIRATORY: Breath sounds equal bilaterally. No accessory muscle use. Poor effort. GASTROINTESTINAL: Abdomen soft, non-tender, nondistended. MUSCULOSKELETAL: No cyanosis, or edema. Awake, not oriented, does not follow any commands. Opens eyes with noxious stimulus, Not tracking. Positive for right hemiparesis. A/P Problem List: (1) ICH (intracerebral hemorrhage) ICD Code: I61.9 Status: Acute (2) Hypertensive emergency ICD Code: I16.1 Status: Acute (3) Hypokalemia ICD Code: E87.6 Status: Acute (4) Respiratory failure ICD Code: J96.90 Status: Acute Assessment and Plan 61-year-old male with left basal ganglia hemorrhage, intraventricular extension test post placement of ventriculostomy drain. Left basal ganglia intraparenchymal hemorrhage -s/p Right frontal ventriculostomy placement 08/26, CT head revealed left basal ganglia intraparenchymal hemorrhage 3.42 cm with extension to lateral ventricle , midline shift 5 mm to the right. Goal systolic blood pressure less than 140, . EEG 08/30: generalized slowing, no seizure activity. Neurosurgery continues to manage. Drain removed 09/17/16. Continue blood pressure control. Hypertensive emergency -Initially managed with Cardizem drip. Resolved. Continue Norvasc 10 mg daily, increase hydralazine to 100 mg every 6 hours, continue lisinopril 20 po bid, lopressor 100 bid. catapres 0.3 bid. Acute hypoxic and hypercarbic respiratory failure- secondary to Staphylococcus pneumonia, tracheostomy in place, continue T piece. Pulmonary following, chest x-ray from 09/22/16 shows improvement, still shows atelectasis. Escherichia coli UTI-status post treatment Failure to thrive, protein energy malnutrition- -Tube feeds , having BM, status post PEG tube placement by IR 09/19/16, continue Glucerna, tube feeds at goal. Consult physical therapy, out of bed. Hyperglycemia of Critical Illness-continue sliding scale with attached checks. Prophylaxis - GI - Protonix - DVT - SCD Discussed with family today. Discharge Planning SSI pending, discharge to rehabilitation once placement available. Problem Qualifiers (1) ICH (intracerebral hemorrhage): Qualified Code: I61.0 - Nontraumatic subcortical hemorrhage of left cerebral hemisphere (2) Respiratory failure: Qualified Code: J96.00 - Acute respiratory failure, unspecified whether with hypoxia or hypercapnia Julian Mcmanus MD Sep 22, 2016 15:25
--- NOTE | 2016-09-22 18:15 | HHI.PR ---
Subjective Remarks Seems better.Moving left side. On a T Bar 28 %. No fever. Tolerates feeds. Trach secretions are thick. Objective Vital Signs Date Time Temp Pulse Resp B/P Pulse Ox O2 Delivery O2 Flow Rate FiO2 09/22/16 12:00 99.0 91 20 157/86 95 09/22/16 09:02 94 Trach Collar 35 09/22/16 08:00 99.2 106 20 150/81 93 09/22/16 07:00 95 T-Piece 6.00 28 09/22/16 04:40 94 T-piece 40 09/22/16 04:00 96.3 99 24 100 09/22/16 04:00 98.6 99 24 142/78 100 09/22/16 03:36 126 09/22/16 00:47 98.5 92 18 162/87 94 09/21/16 22:00 T-Piece 6.00 09/21/16 21:40 99.1 122 18 154/91 93 09/21/16 19:32 93 T-piece 35 I/O 09/21/16 09/21/16 09/21/16 09/22/16 09/22/16 09/22/16 07:00 15:00 23:00 07:00 15:00 23:00 Intake Total 99 ml 0 ml 901 ml 387 ml Output Total 400 ml 350 ml 400 ml Balance -301 ml -350 ml 501 ml 387 ml Intake Oral 0 ml Tube Feeding 99 ml 901 ml 287 ml Other 100 ml Output Urine Total 400 ml 350 ml 400 ml # Voids 100 # Bowel Movements 0 0 Objective Remarks This is an averagely built middle-aged man who is poorly responsive on a trach collar. He has weakness of his right extremities. HEENT: Head normocephalic. Pupils sluggishly reactive. Throat is clear. Ears, no inflammation. NECK: Supple without venous distension. No thyromegaly or lymphadenopathy. CHEST: Decreased breath sounds at the bases. Occasional wheezes. HEART: The heart sounds are regular, S1-S2. No murmur. No S3. ABDOMEN: The abdomen is soft, nontender. Bowel sounds are faint. No organomegaly. EXTREMITIES: Weakness and muscle wasting of the extremities. There is some edema of the arm. The patient does move left extremities to stimuli. Skin was dry and cool. RECTAL: Exam is deferred. Assessment and Plan Assessment and Plan IMPRESSION 1. Status post left basal ganglia intraparenchymal hemorrhage with the right frontal ventriculostomy placement. 2. Acute respiratory failure resolved. 3. Bibasilar atelectasis and pneumonia. 4. History of uncontrolled hypertension. 5. Right hemiplegia. Plan : 1. Cont T Bar 28 %. 2. Trach suction and lavage prn. 3. Nebs bid , duoneb. 4. CBC ,BMP 5. Tube feeds at 60 Cc. 6. PT evaluation. 7. To rehab soon. Lynne White MD Sep 22, 2016 18:15
[2016-09-23] VITALS (10 sets, daily range): BP systolic 111–148; BP diastolic 67–91; PULSE 80–120; RESP 18–22; TEMP 97.8–100.2; O2SAT 92–99
[2016-09-23] MEDS: hydrALAZINE HCL 100 MG TAB PO SCH ×5 (00:22→22:50)
[2016-09-23] MEDS: FREE WATER G-TUBE SCH ×3 (03:42→21:34)
[2016-09-23] MEDS: CHLORHEXIDINE GLUCONATE 2 % 1 PACK (2 CLOTHS) TOP SCH (03:42)
[2016-09-23] MEDS: INSULIN ASPART SUPPLEMENTAL SCALE SQ SCH ×4 (05:40→21:57)
[2016-09-23] MEDS: CHLORHEXIDINE 0.12% (ORAL KIT) 15 ML CUP MT SCH ×2 (08:00→20:00)
[2016-09-23] MEDS: RESP: ALBUTEROL 2.5 MG/IPRATROPIUM 0.5 MG NEB (SCH) INH ×3 (08:08→19:05)
[2016-09-23] MEDS: SODIUM CHLORIDE 0.9% FLUSH 5 ML FLUSH IVF SCH (09:00)
[2016-09-23] MEDS: JUVEN POWDER 1 PACK G-TUBE SCH ×2 (09:00→21:00)
[2016-09-23] MEDS: BENEPROTEIN POWDER 1 PACK G-TUBE SCH ×3 (09:00→18:00)
[2016-09-23] MEDS: LACTULOSE SYRUP 20 GM/30 ML CUP PO SCH ×2 (09:17→21:36)
[2016-09-23] MEDS: POLYETHYLENE GLYCOL 17 GM PKG PO SCH ×2 (09:18→21:36)
[2016-09-23] MEDS: DOCUSATE SODIUM 100 MG CAP PO SCH ×2 (09:18→21:35)
[2016-09-23] MEDS: METOPROLOL TARTRATE 50 MG TAB PO SCH ×2 (09:19→21:34)
[2016-09-23] MEDS: FAMOTIDINE 20 MG TAB NG SCH ×2 (09:19→21:34)
[2016-09-23] MEDS: LISINOPRIL 20 MG TAB PO SCH ×2 (09:20→21:35)
[2016-09-23] MEDS: ARTIFICIAL TEARS OPTH SOLN 15 ML BTL EACH EYE SCH ×3 (09:21→18:29)
[2016-09-23] MEDS: SODIUM CHLORIDE 0.9% FLUSH 5 ML FLUSH IV FLUSH SCH ×2 (09:22→21:36)
[2016-09-23] MEDS: BISACODYL 10 MG SUPP RECTAL SCH (09:23)
[2016-09-23] MEDS: cloNIDine HCL 0.3 MG TAB PO SCH ×2 (11:10→21:35)
--- NOTE | 2016-09-23 16:21 | HHI.PR ---
Subjective Remarks Follow-up CVA. Patient not communicating and not verbal. Able to cough pradhan phlegm. Tolerating tube feeding. Discussed with RN Objective Vitals Vital Signs Date Time Temp Pulse Resp B/P Pulse Ox O2 Delivery O2 Flow Rate FiO2 09/23/16 13:00 80 09/23/16 13:00 111/67 09/23/16 11:20 98.1 91 21 133/91 96 09/23/16 08:59 98.8 120 21 148/78 92 09/23/16 08:13 93 T-piece 28 09/23/16 07:18 T-Piece 6.00 28 09/23/16 06:39 97.8 99 20 135/85 93 09/23/16 00:00 100.2 92 20 122/67 94 09/22/16 20:00 100.1 91 20 127/81 94 09/22/16 19:26 93 T-piece 35 I/O 09/22/16 09/22/16 09/22/16 09/23/16 09/23/16 09/23/16 07:00 15:00 23:00 07:00 15:00 23:00 Intake Total 901 ml 387 ml 743 ml 737 ml 600 ml Output Total 400 ml 325 ml Balance 501 ml 62 ml 743 ml 737 ml 600 ml Intake Oral 0 ml Tube Feeding 901 ml 287 ml 343 ml 337 ml 400 ml Other 100 ml 400 ml 400 ml 200 ml Output Urine Total 400 ml 325 ml # Voids 100 1 # Bowel Movements 0 0 Imaging Last Impressions Chest X-Ray 09/22/16 0700 Signed Impressions: Service Date/Time: Thursday, September 22, 2016 06:26 - CONCLUSION: 1. Overall there has been improvement. 2. Minimal bibasilar parenchymal changes persist. Vargas Freitas MD FACR Gastrostomy Tube Placement 09/19/16 0000 Signed Impressions: Service Date/Time: Monday, September 19, 2016 16:01 - CONCLUSION: Uncomplicated gastrostomy tube placement as above. Chaitanya Rondon MD Head CT 09/17/16 0600 Signed Impressions: Service Date/Time: Saturday, September 17, 2016 04:14 - CONCLUSION: 1. Slightly evolving left basal ganglia hemorrhage with surrounding edema and mass effect similar to September 08. Right frontal ventriculostomy tube unchanged. Right ventricular size relatively stable. Bishop Fulton MD Head Magnetic Resonance Angiography 08/27/16 0000 Signed Impressions: Service Date/Time: Saturday, August 27, 2016 16:49 - CONCLUSION: Negative MRA of the brain. Vargas Freitas MD FACR Brain MRI 08/27/16 0000 Signed Impressions: Service Date/Time: Saturday, August 27, 2016 16:49 - CONCLUSION: 1. Large thalamic hemorrhage as described above. Extensive periventricular white matter changes are noted. There is compression of the third ventricle. Ventriculostomy is seen in the right lateral ventricle. 2. Hemorrhage does extend down the white matter tracts to the level of the right cerebral peduncle. Vargas Freitas MD FACR Objective Remarks GENERAL: Not in distress, nonverbal. EYES: No scleral icterus. No injection or drainage. NECK: Supple, trachea midline. No JVD CARDIOVASCULAR: Regular rate and rhythm without murmurs, gallops, or rubs. RESPIRATORY: Breath sounds equal bilaterally. No accessory muscle use. Poor effort. GASTROINTESTINAL: Abdomen soft, non-tender, nondistended. MUSCULOSKELETAL: No cyanosis, or edema. Awake, not oriented, does not follow any commands. Opens eyes with noxious stimulus, Not tracking. Positive for right hemiparesis. Left preferential gaze Procedures PEG A/P Problem List: (1) ICH (intracerebral hemorrhage) ICD Code: I61.9 Status: Acute (2) Hypertensive emergency ICD Code: I16.1 Status: Resolved (3) Hypokalemia ICD Code: E87.6 Status: Resolved (4) Respiratory failure ICD Code: J96.90 Status: Chronic Assessment and Plan 61-year-old male with left basal ganglia hemorrhage, intraventricular extension test post placement of ventriculostomy drain. Left basal ganglia intraparenchymal hemorrhage with encephalopathy -s/p Right frontal ventriculostomy placement 08/26, CT head revealed left basal ganglia intraparenchymal hemorrhage 3.42 cm with extension to lateral ventricle , midline shift 5 mm to the right. Goal systolic blood pressure less than 140, . EEG 08/30: generalized slowing, no seizure activity. Neurosurgery continues to manage. Drain removed 09/17/16. Continue blood pressure control. Hypertensive emergency -Initially managed with Cardizem drip. Resolved. Continue Norvasc 10 mg daily, hydralazine to 100 mg every 6 hours, lisinopril 20 po bid, lopressor 100 bid. catapres 0.3 bid. Acute hypoxic and hypercarbic respiratory failure- secondary to Staphylococcus pneumonia, tracheostomy in place, continue T piece. Pulmonary following, chest x-ray from 09/22/16 shows improvement, still shows atelectasis. Continue pulmonary toilet Escherichia coli UTI-status post treatment Failure to thrive, protein energy malnutrition- -Tube feeds , having BM, status post PEG tube placement by IR 09/19/16, continue Glucerna, tube feeds at goal. Consult physical therapy, out of bed. Hyperglycemia of Critical Illness-continue sliding scale with Accu-Cheks. Prophylaxis - GI - Protonix - DVT - SCD Discharge Planning SSI pending, discharge to rehabilitation once placement available. Problem Qualifiers (1) ICH (intracerebral hemorrhage): Qualified Code: I61.0 - Nontraumatic subcortical hemorrhage of left cerebral hemisphere (2) Respiratory failure: Qualified Code: J96.00 - Acute respiratory failure, unspecified whether with hypoxia or hypercapnia Marin Ibarra MD Sep 23, 2016 16:21
--- NOTE | 2016-09-23 18:55 | HHI.PR ---
Subjective Remarks Seems better.Moving left side. On a T Bar 28 %. No fever. Tolerates feeds. Trach secretions are clearing. No response to commands. Objective Vital Signs Date Time Temp Pulse Resp B/P Pulse Ox O2 Delivery O2 Flow Rate FiO2 09/23/16 16:00 99.2 95 18 113/69 99 09/23/16 13:00 80 09/23/16 13:00 111/67 09/23/16 11:20 98.1 91 21 133/91 96 09/23/16 08:59 98.8 120 21 148/78 92 09/23/16 08:13 93 T-piece 28 09/23/16 07:18 T-Piece 6.00 28 09/23/16 06:39 97.8 99 20 135/85 93 09/23/16 00:00 100.2 92 20 122/67 94 09/22/16 20:00 100.1 91 20 127/81 94 09/22/16 19:26 93 T-piece 35 I/O 09/22/16 09/22/16 09/22/16 09/23/16 09/23/16 09/23/16 07:00 15:00 23:00 07:00 15:00 23:00 Intake Total 901 ml 387 ml 743 ml 737 ml 600 ml Output Total 400 ml 325 ml 450 ml Balance 501 ml 62 ml 743 ml 737 ml 150 ml Intake Oral 0 ml Tube Feeding 901 ml 287 ml 343 ml 337 ml 400 ml Other 100 ml 400 ml 400 ml 200 ml Output Urine Total 400 ml 325 ml 450 ml # Voids 100 1 # Bowel Movements 0 0 1 Objective Remarks This is an averagely built middle-aged man who is poorly responsive on a trach collar. He has weakness of his right extremities. HEENT: Head normocephalic. Pupils reactive. Throat is clear. Ears, no inflammation. NECK: Supple without venous distension. No thyromegaly or lymphadenopathy. CHEST: Decreased breath sounds at the bases. Occasional wheezes. HEART: The heart sounds are regular, S1-S2. No murmur. No S3. ABDOMEN: The abdomen is soft, nontender. Bowel sounds are faint. No organomegaly. EXTREMITIES: Weakness and muscle wasting of the extremities. There is some edema of the arm. The patient does move left extremities to stimuli. Skin was dry and warm. RECTAL: Exam is deferred. Assessment and Plan Assessment and Plan IMPRESSION 1. Status post left basal ganglia intraparenchymal hemorrhage with the right frontal ventriculostomy placement. 2. Acute respiratory failure resolved. 3. Bibasilar atelectasis and pneumonia. 4. History of uncontrolled hypertension. 5. Right hemiplegia. Plan : 1. Cont T Bar 28 %. 2. Trach suction and lavage prn. 3. Nebs bid , duoneb. 4. Mucomyst nebs 20 % bid. 5. Tube feeds at 60 Cc. 6. PT evaluation. 7. To rehab soon. Lynne White MD Sep 23, 2016 18:55
[2016-09-24] VITALS (11 sets, daily range): BP systolic 115–150; BP diastolic 58–86; PULSE 87–113; RESP 20–24; TEMP 98.6–100.6; O2SAT 92–98
[2016-09-24] MEDS: CHLORHEXIDINE GLUCONATE 2 % 1 PACK (2 CLOTHS) TOP SCH (04:00)
[2016-09-24] MEDS: hydrALAZINE HCL 100 MG TAB PO SCH ×4 (04:44→23:25)
[2016-09-24] MEDS: FREE WATER G-TUBE SCH ×3 (04:44→23:26)
[2016-09-24] MEDS: INSULIN ASPART SUPPLEMENTAL SCALE SQ SCH ×4 (04:46→21:00)
[2016-09-24] MEDS: RESP: ACETYLCYSTEINE 20% 30 ML NEB NEB SCH ×3 (07:50→13:17)
[2016-09-24] MEDS: RESP: ALBUTEROL 2.5 MG/IPRATROPIUM 0.5 MG NEB (SCH) INH ×3 (07:50→19:23)
[2016-09-24] MEDS: CHLORHEXIDINE 0.12% (ORAL KIT) 15 ML CUP MT SCH ×2 (08:00→20:00)
[2016-09-24] MEDS: SODIUM CHLORIDE 0.9% FLUSH 5 ML FLUSH IVF SCH (09:00)
[2016-09-24] MEDS: BISACODYL 10 MG SUPP RECTAL SCH (09:00)
[2016-09-24] MEDS: LACTULOSE SYRUP 20 GM/30 ML CUP PO SCH ×2 (09:00→23:23)
[2016-09-24] MEDS: JUVEN POWDER 1 PACK G-TUBE SCH ×2 (09:00→21:00)
[2016-09-24] MEDS: BENEPROTEIN POWDER 1 PACK G-TUBE SCH ×3 (09:00→18:00)
[2016-09-24] MEDS: FAMOTIDINE 20 MG TAB NG SCH ×2 (09:06→23:23)
[2016-09-24] MEDS: METOPROLOL TARTRATE 50 MG TAB PO SCH ×2 (09:06→23:24)
[2016-09-24] MEDS: LISINOPRIL 20 MG TAB PO SCH ×2 (09:07→23:29)
[2016-09-24] MEDS: POLYETHYLENE GLYCOL 17 GM PKG PO SCH ×2 (09:07→23:25)
[2016-09-24] MEDS: DOCUSATE SODIUM 100 MG CAP PO SCH ×2 (09:07→23:23)
[2016-09-24] MEDS: ARTIFICIAL TEARS OPTH SOLN 15 ML BTL EACH EYE SCH ×3 (09:11→18:00)
[2016-09-24] MEDS: SODIUM CHLORIDE 0.9% FLUSH 5 ML FLUSH IV FLUSH SCH ×2 (09:11→23:29)
[2016-09-24] MEDS: cloNIDine HCL 0.3 MG TAB PO SCH ×2 (11:09→23:24)
--- NOTE | 2016-09-24 13:29 | HHI.NSPN ---
History Chief Complaint: Left basal ganglia hemorrhage Interval History 61-year-old gentleman who suffered from a left basal ganglia hemorrhage with intraventricular extension. He had a right ventriculostomy place which was subsequently weaned off after the intraventricular hemorrhage is cleared. He was intubated for a prolonged time period and required a tracheostomy and feeding tube placement. He is currently off ventilator support with a trach shield in place. [id number] is at the bedside relates that she has noted steady little improvement in his neurologic status every day. Exam Results Vital Signs Date Time Temp Pulse Resp B/P Pulse Ox O2 Delivery O2 Flow Rate FiO2 09/24/16 12:14 99.4 89 22 120/74 94 09/24/16 07:50 T-piece 28 09/24/16 07:15 6.00 Intake and Output 09/23/16 09/23/16 09/24/16 08:00 16:00 00:00 Intake Total 737 ml 600 ml 701 ml Output Total 450 ml 3 ml Balance 737 ml 150 ml 698 ml Physical Examination Resp: Trach in place. CTA bilaterally. He does have some oral mucous secretions. Heart: NSR no murmurs Abd: Soft positive bs Skin: No drainage from removed ventriculostomy site that has sutures and rosalva in place which is healing well. Muscle: Right hemiparesis. Spontaneously moves left side. Neuro: Pt opens eyes spontaneously and seems to track. Pupils 3mm bilaterally reactive bilaterally. Not following commands with aphasia. Medical Decision Making Impression and Plan Left basal ganglia hemorrhage with intraventricular extension. Ventriculostomy removed a week ago with slowly improving level of alertness although remains aphasic with dense right hemiparesis. He is at this point awaiting rehabilitation placement. Recommend mechanical and chemical DVT prophylaxis. Updated [id number] at the bedside who is very appreciative of the care provided. Jeff Croft MD Sep 24, 2016 13:29
--- NOTE | 2016-09-24 14:40 | HHI.PR ---
Subjective Remarks Follow-up ICH. Remains nonresponsive. Discussed with RN to clarify with neurosurgery removal date of rosalva and sutures Objective Vitals Vital Signs Date Time Temp Pulse Resp B/P Pulse Ox O2 Delivery O2 Flow Rate FiO2 09/24/16 12:14 99.4 89 22 120/74 94 09/24/16 10:00 105 131/77 09/24/16 08:05 108 09/24/16 08:00 99.8 103 20 137/80 92 09/24/16 07:50 98 T-piece 28 09/24/16 07:15 T-Piece 6.00 28 09/24/16 04:00 98.6 93 22 143/77 94 09/24/16 04:00 T-Piece 6.00 28 09/24/16 00:00 T-Piece 6.00 28 09/24/16 00:00 98.6 87 22 150/86 95 09/23/16 21:30 T-Piece 6.00 28 09/23/16 20:00 98.5 101 22 132/76 94 09/23/16 19:07 94 T-piece 28 09/23/16 16:00 99.2 95 18 113/69 99 I/O 09/23/16 09/23/16 09/23/16 09/24/16 09/24/16 09/24/16 07:00 15:00 23:00 07:00 15:00 23:00 Intake Total 737 ml 600 ml 701 ml Output Total 450 ml 3 ml Balance 737 ml 150 ml 698 ml Tube Feeding 337 ml 400 ml 701 ml Other 400 ml 200 ml Output Urine Total 450 ml 3 ml # Voids 2 # Bowel Movements 1 0 1 Imaging Last Impressions Chest X-Ray 09/22/16 0700 Signed Impressions: Service Date/Time: Thursday, September 22, 2016 06:26 - CONCLUSION: 1. Overall there has been improvement. 2. Minimal bibasilar parenchymal changes persist. Vargas Freitas MD FACR Gastrostomy Tube Placement 09/19/16 0000 Signed Impressions: Service Date/Time: Monday, September 19, 2016 16:01 - CONCLUSION: Uncomplicated gastrostomy tube placement as above. Chaitanya Rondon MD Head CT 09/17/16 0600 Signed Impressions: Service Date/Time: Saturday, September 17, 2016 04:14 - CONCLUSION: 1. Slightly evolving left basal ganglia hemorrhage with surrounding edema and mass effect similar to September 08. Right frontal ventriculostomy tube unchanged. Right ventricular size relatively stable. Bishop Fulton MD Head Magnetic Resonance Angiography 08/27/16 0000 Signed Impressions: Service Date/Time: Saturday, August 27, 2016 16:49 - CONCLUSION: Negative MRA of the brain. Vargas Freitas MD FACR Brain MRI 08/27/16 0000 Signed Impressions: Service Date/Time: Saturday, August 27, 2016 16:49 - CONCLUSION: 1. Large thalamic hemorrhage as described above. Extensive periventricular white matter changes are noted. There is compression of the third ventricle. Ventriculostomy is seen in the right lateral ventricle. 2. Hemorrhage does extend down the white matter tracts to the level of the right cerebral peduncle. Vargas Freitas MD FACR Objective Remarks GENERAL: Not in distress, nonverbal. EYES: No scleral icterus. No injection or drainage. NECK: Supple, trachea midline. No JVD CARDIOVASCULAR: Regular rate and rhythm without murmurs, gallops, or rubs. RESPIRATORY: Breath sounds equal bilaterally. No accessory muscle use. Poor effort. GASTROINTESTINAL: Abdomen soft, non-tender, nondistended. MUSCULOSKELETAL: No cyanosis, or edema. Does not follow any commands. Opens eyes with noxious stimulus, Not tracking. Positive for right hemiparesis. Left preferential gaze Procedures PEG A/P Problem List: (1) ICH (intracerebral hemorrhage) ICD Code: I61.9 Status: Acute (2) Hypertensive emergency ICD Code: I16.1 Status: Resolved (3) Hypokalemia ICD Code: E87.6 Status: Resolved (4) Respiratory failure ICD Code: J96.90 Status: Chronic Assessment and Plan 61-year-old male with left basal ganglia hemorrhage, intraventricular extension test post placement of ventriculostomy drain. Left basal ganglia intraparenchymal hemorrhage with encephalopathy -s/p Right frontal ventriculostomy placement 08/26, CT head revealed left basal ganglia intraparenchymal hemorrhage 3.42 cm with extension to lateral ventricle , midline shift 5 mm to the right. Goal systolic blood pressure less than 140, . EEG 08/30: generalized slowing, no seizure activity. Neurosurgery continues to manage. Drain removed 09/17/16. Continue blood pressure control. Hypertensive emergency -Initially managed with Cardizem drip. Resolved. Continue Norvasc 10 mg daily, hydralazine to 100 mg every 6 hours, lisinopril 20 po bid, lopressor 100 bid. catapres 0.3 bid. Acute hypoxic and hypercarbic respiratory failure- secondary to Staphylococcus pneumonia, tracheostomy in place, continue T piece. Pulmonary following, chest x-ray from 09/22/16 shows improvement, still shows atelectasis. Continue pulmonary toilet Escherichia coli UTI-status post treatment Failure to thrive, protein energy malnutrition- -Tube feeds , having BM, status post PEG tube placement by IR 09/19/16, continue Glucerna, tube feeds at goal. Consult physical therapy, out of bed. Hyperglycemia of Critical Illness-continue sliding scale with Accu-Cheks. Stable consider discontinuing sliding scale Prophylaxis - GI - Protonix - DVT - SCD Discharge Planning SSI pending, discharge to rehabilitation once placement available. Problem Qualifiers (1) ICH (intracerebral hemorrhage): Qualified Code: I61.0 - Nontraumatic subcortical hemorrhage of left cerebral hemisphere (2) Respiratory failure: Qualified Code: J96.00 - Acute respiratory failure, unspecified whether with hypoxia or hypercapnia Marin Ibarra MD Sep 24, 2016 14:39
[2016-09-24] MEDS: ENOXAPARIN SODIUM 40 MG/0.4 ML SYRINGE SQ SCH (15:34)
--- NOTE | 2016-09-24 16:53 | HHI.PR ---
Subjective Remarks No change ..Moving left side. On a T Bar 28 %. Will squeeze hand but not to command. Tolerates feeds. Trach secretions are less. No response to commands. Objective Vital Signs Date Time Temp Pulse Resp B/P Pulse Ox O2 Delivery O2 Flow Rate FiO2 09/24/16 12:14 99.4 89 22 120/74 94 09/24/16 10:00 105 131/77 09/24/16 08:05 108 09/24/16 08:00 99.8 103 20 137/80 92 09/24/16 07:50 98 T-piece 28 09/24/16 07:15 T-Piece 6.00 28 09/24/16 04:00 98.6 93 22 143/77 94 09/24/16 04:00 T-Piece 6.00 28 09/24/16 00:00 T-Piece 6.00 28 09/24/16 00:00 98.6 87 22 150/86 95 09/23/16 21:30 T-Piece 6.00 28 09/23/16 20:00 98.5 101 22 132/76 94 09/23/16 19:07 94 T-piece 28 I/O 09/23/16 09/23/16 09/23/16 09/24/16 09/24/16 09/24/16 07:00 15:00 23:00 07:00 15:00 23:00 Intake Total 737 ml 600 ml 701 ml 600 ml Output Total 450 ml 3 ml Balance 737 ml 150 ml 698 ml 600 ml Tube Feeding 337 ml 400 ml 701 ml 400 ml Other 400 ml 200 ml 200 ml Output Urine Total 450 ml 3 ml # Voids 2 # Bowel Movements 1 0 1 Objective Remarks This is an averagely built middle-aged man who is poorly responsive on a trach collar. He has weakness of his right extremities. HEENT: Head normocephalic. Pupils reactive. Throat is clear. Ears, no inflammation. NECK: Supple without venous distension. No thyromegaly or lymphadenopathy. CHEST: Decreased breath sounds at the bases. Occasional upper chest wheezes. HEART: The heart sounds are regular, S1-S2. No murmur. No S3. ABDOMEN: The abdomen is soft, nontender. Bowel sounds are faint. No organomegaly. EXTREMITIES: Weakness and muscle wasting of the extremities. There is some edema of the right arm. The patient does move left extremities to stimuli. Skin was dry and warm. RECTAL: Exam is deferred. Assessment and Plan Assessment and Plan IMPRESSION 1. Status post left basal ganglia intraparenchymal hemorrhage with the right frontal ventriculostomy placement. 2. Acute respiratory failure resolved. 3. Bibasilar atelectasis and pneumonia. 4. History of uncontrolled hypertension. 5. Right hemiplegia. Plan : 1. Cont T Bar 28 %. 2. Trach suction and lavage prn. 3. Nebs bid , duoneb. 4. D/C Mucomyst nebs 5. Tube feeds at 60 Cc. 6. PT evaluation. 7. PM valve to trach if more alert. Lynne White MD Sep 24, 2016 16:53
--- NOTE | 2016-09-24 17:19 | HHI.HCPN ---
Reason for visit a. To assist with evaluation and management of symptoms including: pain, debility, dyspnea b. To assist medical decision maker(s) with: better understanding of current medical conditions; weighing benefits/burdens of medical treatment options; making medical treatment decisions. Subjective/Interval History Mr. Ruiz resting with eyes closed. does not open to call of name appears to be deeply asleep. He does show a Babinski response to foot touch. Otherwise, he appears comfortable. He is getting feedings via PEG No recent labs. Last CXR showed bibasilar consolidation. He remains to At-Piece with 5-6L O2. Gisel comes to see him daily and is providing his and family with updates. I spoke hayde Mg his daughter to up her and to answer questions relative to "meaningful recovery". She had initially commented that she would not want her father to be 'suck in a bed'. She is of the impression that he is improving and that with rehab he will get home, probably not be able to talk, but need some assistance. Discussed that for rehab to be effective, he would need to be able to follow commands - at this point that is not consistent. She asked to speak with Dr Croft. Advance Directives Living Will: Never completed Health Care Surrogate: Never completed Durable Power of Firer Locomotive: Never completed Advance Directive Specifics Documented care wishes: Full CODE STATUS Objective Vital Signs Date Time Temp Pulse Resp B/P Pulse Ox O2 Delivery O2 Flow Rate FiO2 09/24/16 12:14 99.4 89 22 120/74 94 09/24/16 10:00 105 131/77 09/24/16 08:05 108 09/24/16 08:00 99.8 103 20 137/80 92 09/24/16 07:50 98 T-piece 28 09/24/16 07:15 T-Piece 6.00 28 09/24/16 04:00 98.6 93 22 143/77 94 09/24/16 04:00 T-Piece 6.00 28 09/24/16 00:00 T-Piece 6.00 28 09/24/16 00:00 98.6 87 22 150/86 95 09/23/16 21:30 T-Piece 6.00 28 09/23/16 20:00 98.5 101 22 132/76 94 09/23/16 19:07 94 T-piece 28 Intake & Output 3/8/17 3/8/17 07:00 19:00 Intake Total 701 ml 600 ml Output Total 3 ml Balance 698 ml 600 ml Tube Feeding 701 ml 400 ml Other 200 ml Output Urine Total 3 ml # Voids 2 # Bowel Movements 1 Physical Exam CONSTITUTIONAL/GENERAL: This is an adequately nourished patient, in no apparent distress. TUBES/LINES/DRAINS: T-Piece, [place], central line,PEG SKIN: No jaundice, rashes, or lesions. Well approximated suture lines to this skull, post ICP line No wounds seen anteriorly. Skin temperature appropriate. Not diaphoretic. HEAD: Atraumatic. Normocephalic. EYES: Pupils equal and round , reactive, Not tracking, ENT: Able to adequately assess hearing. Mouth/ Throat without visible erythema , exudates, masses, or lesions. NECK: T tube in place CARDIOVASCULAR: Regular rate and rhythm without murmurs, gallops, or rubs. No JVD. Peripheral pulses symmetric. RESPIRATORY/CHEST: Tpiece at 5 L Anterior rhonchi, posterior diminished mid to base, Symmetric, unlabored respirations. GASTROINTESTINAL: Abdomen soft, non-tender, nondistended. No hepato-splenomegaly , or palpable masses. No guarding. Bowel sounds present. GENITOURINARY: Without palpable bladder distension. Urinary catheter in place. MUSCULOSKELETAL: Extremities without clubbing, cyanosis, or edema. No joint tenderness or effusion noted. No calf tenderness. No mottling or clubbing. LYMPHATICS: No palpable cervical or supraclavicular adenopathy. NEUROLOGICAL: Minimally responsive. Will open eyes to touch or call name on ocassion, does not track with eyes. Spontaneous movement of left upper and lower extremities. Unclear of any meaningful movement PSYCHIATRIC: Unable to assess Diagnostic Tests Imaging Last 72 hours Impressions Chest X-Ray 09/22/16 0700 Signed Impressions: Service Date/Time: Thursday, September 22, 2016 06:26 - CONCLUSION: 1. Overall there has been improvement. 2. Minimal bibasilar parenchymal changes persist. Vargas Freitas MD FACR Procedures PEG 09/19/16 Assessment and Plan Disease Oriented Problem List: (1) Stroke, hemorrhagic (2) Global aphasia Comment: Unable to assess level of cognition. Not following commands. (3) Respiratory failure Comment: Now on a T piece with 5 L./ 28% (4) Hypertension Comment: 1. Normalized Symptom Scale: (1) Pain 0-10 Scale: Unable to quantify (2) Debility 0-10 Scale: Unable to quantify (3) Dyspnea 0-10 Scale: Unable to quantify Pertinent Non-Medical Issues Psychosocial: No local family, Spiritual: Catholicfamily would like to have a woodwind instruments inspector Legal: Patient is self-pay, case management is attaining SSI as he will need long-term care Ethical issues impacting care: has agreed to participate in decision making. Has been contacted via [employer] with help of her sister Gisel. . . Important Contacts Jodie García, , (lives in [place]) - Haritha Ruiz [phone] - pt's daughter, living in [place]. Boni Ruiz, son, Lives in [place] - [phone] Gisel Salgado, (Mother's sister), Lives in [place]. . Prognosis Guarded - At this point, remains on T-Piece w 5L, feeding tube, While he will open his eyes and have spontaneous movement of L upper and lower extremities, he remains with global aphasia. Ability for rehab is limited. . Code Status: Full Code Plan Decision Maker: [place] Statues indicate in the absence of a written HCS, decision making falls to his who lives in [facility]. She has agreed to participate in decision making. Code Status: Full code Family Discussion: Symptoms: Dyspnea, dysphagia, debility, pain Palliative care phone number provided - will follow during hospital stay. . Attestation To help prompt me to consider important information that might be impacting today's encounter and assessment, information from prior notes written by myself or my colleagues may have been "brought forward" into today's note. My signature on this note, however, is an attestation that I personally performed the exam, history, and/or decision-making noted today, and, unless otherwise indicated, the interactions with patient, family, and staff as well as the review of records all occurred today. I also attest that the listed assessment and stated plan reflect my best clinical judgment today based on the combination of historical information, prior notes, and today's exam/ interactions. When time spent is documented, it refers only to time spent today by the signer, or if indicated, combined time spent today by collaborating physician/nurse practitioner. Fara Negron Sep 24, 2016 17:19
[2016-09-25] VITALS (11 sets, daily range): BP systolic 99–128; BP diastolic 60–75; PULSE 89–119; RESP 18–23; TEMP 98.2–102.2; O2SAT 90–98
[2016-09-25] MEDS: RESP: ACETYLCYSTEINE 20% 30 ML NEB NEB SCH ×3 (00:37→15:59)
[2016-09-25] MEDS: RESP: ALBUTEROL 2.5 MG/IPRATROPIUM 0.5 MG NEB (PRN) INH ×3 (00:37→15:59)
[2016-09-25] MEDS: CHLORHEXIDINE GLUCONATE 2 % 1 PACK (2 CLOTHS) TOP SCH (04:00)
[2016-09-25] MEDS: FREE WATER G-TUBE SCH ×3 (05:02→22:39)
[2016-09-25] MEDS: hydrALAZINE HCL 100 MG TAB PO SCH ×3 (05:02→17:25)
[2016-09-25] MEDS: INSULIN ASPART SUPPLEMENTAL SCALE SQ SCH ×4 (05:02→20:25)
[2016-09-25] MEDS: ACETAMINOPHEN 325 MG TAB PO PRN ×3 (05:03→17:40)
[2016-09-25 06:58] LABS: BASOPHIL % 1.6 % (0.0-2.0); EOSINOPHIL # 0.1 TH/MM3 (0-0.4); EOSINOPHIL % 2.9 % (0.0-4.0); HEMATOCRIT 34.7 % (39.0-51.0); HEMO FLAGS DIFF FINAL; LYMPH % 17.9 % (9.0-44.0); LYMPHOCYTE # 0.6 TH/MM3 (1.0-4.8); MEAN CELL VOLUME 95.6 FL (80.0-100.0); MEAN CORPUSCULAR HGB CONC 33.5 % (32.0-36.0); MONO % 14.2 % (0.0-8.0); NEUT % 63.4 % (16.0-70.0); PLATELET COUNT 173 TH/MM3 (150-450); RED BLOOD COUNT 3.63 MIL/MM3 (4.50-5.90); WHITE BLOOD COUNT 3.1 TH/MM3 (4.0-11.0)
[2016-09-25] MEDS: CHLORHEXIDINE 0.12% (ORAL KIT) 15 ML CUP MT SCH ×2 (08:00→22:39)
[2016-09-25] MEDS: FAMOTIDINE 20 MG TAB NG SCH ×2 (08:41→22:41)
[2016-09-25] MEDS: METOPROLOL TARTRATE 50 MG TAB PO SCH ×2 (08:41→22:48)
[2016-09-25] MEDS: LISINOPRIL 20 MG TAB PO SCH ×2 (08:41→22:40)
[2016-09-25] MEDS: SODIUM CHLORIDE 0.9% FLUSH 5 ML FLUSH IVF SCH (09:00)
[2016-09-25] MEDS: BISACODYL 10 MG SUPP RECTAL SCH (09:00)
[2016-09-25] MEDS: JUVEN POWDER 1 PACK G-TUBE SCH ×2 (09:00→22:48)
[2016-09-25] MEDS: BENEPROTEIN POWDER 1 PACK G-TUBE SCH ×3 (09:00→17:31)
[2016-09-25] MEDS: LACTULOSE SYRUP 20 GM/30 ML CUP PO SCH ×2 (09:00→21:00)
[2016-09-25] MEDS: POLYETHYLENE GLYCOL 17 GM PKG PO SCH ×2 (09:00→21:00)
[2016-09-25] MEDS: DOCUSATE SODIUM 100 MG CAP PO SCH ×2 (09:00→21:00)
[2016-09-25] MEDS: SODIUM CHLORIDE 0.9% FLUSH 5 ML FLUSH IV FLUSH SCH ×2 (09:01→22:38)
--- NOTE | 2016-09-25 09:16 | HHI.NSPN ---
(Sergey Melton) History Chief Complaint: Left basal ganglia hemorrhage (Sergey Melton) Interval History This is a middle-aged gentleman who apparently was brought to [facility] Emergency Room with acute onset of right-sided weakness and slurred speech. He was hypertensive on presentation and had a declining neurologic examination requiring intubation for airway control with ventilator support. CT scan of the head obtained reveals a basal ganglia hemorrhage on the left side measuring about 3.4 cm in diameter. There is also extension of the hemorrhage into the left lateral ventricle. No hydrocephalus is noted, although left temporal horn is dilated. Currently there is no friends or family members here to relate a history and his identity is unknown. 08/27/16: Pt sedated on Diprivan. Not opening eyes. Not following commands. Pupils 2mm bilaterally slight reaction bilaterally. 08/28/16: Pt sedated on Diprivan. Not opening eyes. Pupils 2mm bilaterally slight brisk reaction. Not following commands. 08/29/16: Pt sedated with Diprivan and Fentanyl drips. Not opening eyes. Pupils 2mm bilaterally slight brisk reaction. Not following commands. 09/01/16: Pt off sedation. Not opening eyes. Pupils 3mm bilaterally reactive. Not following commands. Ventriculostomy in place. ICP 18 after stimulation. 09/02/16: Pt off sedation. Not opening eyes to pain. Pupils 3mm bilaterally reactive bilaterally. Not following commands. ICP 11 with ventriculostomy drain at [id number]. 09/03/16: Pt off sedative drips. Not opening eyes. Ventriculostomy drain clamped, reportedly had to be opened multiple times last night. Currently tolerating clamping since 730am. 09/04/16: Pt not opening eyes. Pupils 4mm bilaterally reactive bilaterally. Not following commands. Withdraws UEs to pain. Localizes with LUE to pain in upper chest. 09/05/16: Pt not opening eyes. Pupils 4mm bilaterally reactive bilaterally. Not following commands. Spontaneously moves LUE. Localizes to pain with LUE. Right hemiparesis but withdraws to pain. 09/06/16: Pt not opening eyes. Off sedation. Pupils 4mm bilaterally reactive bilaterally. Not following commands. spontaneously moves LUE. Localizes to pain with LUE. Right hemiparesis. 09/07/16: Pt not opening eyes. No sedation. Pupils 4mm bilaterally, reactive bilaterally. Not following commands. right hemiparesis. Spontaneous movement in LUE and localizes to pain with LUE. 09/08/16: Pt not opening eyes. Pupils 4mm bilaterally. Ventriculostomy had been clamped several times last night but has to be reopened for elevated ICPs. Currently Ventriculostomy at [id number] ICP 19-20. 09/09/16: Pt not opening eyes. Pupils 4mm bilaterally, reactive bilaterally. Ventriculostomy drain at [id number] with bloody CSF drainage. ICPs 9. 09/10/16: Pt not opening eyes. Pupils 4mm bilaterally reactive bilaterally. Ventriculostomy drain at [id number] with bloody CSF drainage. ICP 14. 09/11/16: Pt not opening eyes. Pupils 2mm bilaterally reactive bilaterally. Ventriculostomy drain at [id number] with old bloody CSF drainage. ICP 13-14. 09/12/16: Pt opening eyes today to stimulation. Not following commands. 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 Right hemiparesis. 09/15/16: Pt opening eyes slightly to stimulation. Not following commands. Attempts to localize with LUE to pain in upper chest. Right hemiparesis. 09/16/16: Pt opening eyes slightly. Not following commands. Right hemiparesis. Ventriculostomy clamped ICPs teens to occasional above 20 but less than 25. 09/17/16: Pt opening eyes more today. Not following commands. Right hemiparesis. 09/18/16: Pt opens eyes to voice. Not following commands. Right hemiparesis. 09/19/16: Pt has eyes open. Not following commands. Spontaneously moves left side. Right hemiparesis. 09/25/16: Pt with eyes open. Left sided gaze preference. Not following commands. Spontaneously moves left side, right dense hemiparesis. Not verbalizing or mouthing words. Trach in place on humidified O2. (Sergey Melton) Exam Results Vital Signs Date Time Temp Pulse Resp B/P Pulse Ox O2 Delivery O2 Flow Rate FiO2 09/25/16 08:10 119 09/25/16 08:00 100.7 20 121/74 94 09/25/16 07:39 T-piece 28 09/24/16 23:00 6.00 Intake and Output 09/24/16 09/24/16 09/25/16 08:00 16:00 00:00 Intake Total 600 ml 0 ml Output Total 400 ml 100 ml Balance 200 ml -100 ml (Sergey Melton) Physical Examination Resp: Trach in place. On humidified O2. CTA bilaterally. Heart: NSR no murmurs Abd: Soft positive bs Skin: No drainage from removed ventriculostomy site. Felicity and sutures were removed yesterday. Muscle: Right hemiparesis. Spontaneously moves left side. Neuro: Pt opens eyes spontaneously. Pupils 3mm bilaterally reactive bilaterally. Not following commands with aphasia. (Sergey Melton) Lab, Micro, Other Results Laboratory Tests Test 09/25/16 06:01 White Blood Count 3.1 TH/MM3 Red Blood Count 3.63 MIL/MM3 Hemoglobin 11.6 GM/DL Hematocrit 34.7 % Mean Corpuscular Volume 95.6 FL Mean Corpuscular Hemoglobin 32.0 PG Mean Corpuscular Hemoglobin 33.5 % Concent Red Cell Distribution Width 13.0 % Platelet Count 173 TH/MM3 Mean Platelet Volume 11.8 FL Neutrophils (%) (Auto) 63.4 % Lymphocytes (%) (Auto) 17.9 % Monocytes (%) (Auto) 14.2 % Eosinophils (%) (Auto) 2.9 % Basophils (%) (Auto) 1.6 % Neutrophils # (Auto) 2.0 TH/MM3 Lymphocytes # (Auto) 0.6 TH/MM3 Monocytes # (Auto) 0.4 TH/MM3 Eosinophils # (Auto) 0.1 TH/MM3 Basophils # (Auto) 0.0 TH/MM3 CBC Comment DIFF FINAL Differential Comment 09/24/16 09/24/16 09/25/16 15:00 23:00 07:00 Intake Total 600 ml 0 ml 0 ml Output Total 400 ml 100 ml 150 ml Balance 200 ml -100 ml -150 ml Intake Oral 0 ml 0 ml 0 ml Tube Feeding 400 ml Other 200 ml Output Urine Total 400 ml 100 ml 150 ml # Voids 2 # Bowel Movements 0 1 2 (Sergey Melton) Medical Decision Making Impression and Plan A: 61 y/o M with Left basal ganglia hemorrhage with intraventricular extension with mild hydrocephalus. This is a characteristic of a hypertensive bleed. 2. Unregulated hypertension. 3. Respiratory failure secondary to the intracranial hemorrhage. 4. Fevers 5. UTI gram - julia sensitive to abx 6. sputum staph aureus sensitive to abx. 7. Blood and CSF negative at 72 hours. PLAN Continue with blood pressure control Continue with critical care Continue with rehab efforts (Sergey Melton) Attending Statement The exam, history, and the medical decision-making described in the above note were completed with the assistance of the mid-level provider. I reviewed and agree with the findings presented. I attest that I had a [id number] encounter with the patient on the same day, and personally performed and documented my assessment and findings in the medical record. (Jeff Croft MD) Sergey Melton Sep 25, 2016 09:16 Jeff Croft MD Sep 25, 2016 16:46
[2016-09-25] MEDS: ARTIFICIAL TEARS OPTH SOLN 15 ML BTL EACH EYE SCH ×3 (09:20→17:25)
[2016-09-25] MEDS: cloNIDine HCL 0.3 MG TAB PO SCH ×2 (10:12→22:40)
--- NOTE | 2016-09-25 12:00 | HHI.PR ---
Subjective Remarks Follow-up intracranial hemorrhage. Tmax 100.7. Remains unresponsive. Discussed with RN, no trach secretions, diarrhea Objective Vitals Vital Signs Date Time Temp Pulse Resp B/P Pulse Ox O2 Delivery O2 Flow Rate FiO2 09/25/16 09:00 T-Piece 6.00 09/25/16 08:10 119 09/25/16 08:00 100.7 116 20 121/74 94 09/25/16 07:39 96 T-piece 28 09/25/16 04:00 100.8 102 23 120/74 94 09/25/16 00:40 93 T-piece 28 09/25/16 00:00 98.8 100 23 116/60 98 09/24/16 23:00 T-Piece 6.00 28 09/24/16 21:50 98.8 103 24 115/58 97 09/24/16 20:00 113 09/24/16 20:00 T-Piece 6.00 28 09/24/16 19:23 94 T-piece 6.00 28 09/24/16 16:00 100.6 100 20 125/76 95 09/24/16 12:14 99.4 89 22 120/74 94 I/O 09/24/16 09/24/16 09/24/16 09/25/16 09/25/16 09/25/16 07:00 15:00 23:00 07:00 15:00 23:00 Intake Total 600 ml 0 ml 0 ml Output Total 400 ml 100 ml 150 ml Balance 200 ml -100 ml -150 ml Intake Oral 0 ml 0 ml 0 ml Tube Feeding 400 ml Other 200 ml Output Urine Total 400 ml 100 ml 150 ml # Voids 2 2 # Bowel Movements 1 0 1 2 Result Diagram: 09/25/16 0601 Imaging Last Impressions Chest X-Ray 09/22/16 0700 Signed Impressions: Service Date/Time: Thursday, September 22, 2016 06:26 - CONCLUSION: 1. Overall there has been improvement. 2. Minimal bibasilar parenchymal changes persist. Vargas Freitas MD FACR Gastrostomy Tube Placement 09/19/16 0000 Signed Impressions: Service Date/Time: Monday, September 19, 2016 16:01 - CONCLUSION: Uncomplicated gastrostomy tube placement as above. Chaitanya Rondon MD Head CT 09/17/16 0600 Signed Impressions: Service Date/Time: Saturday, September 17, 2016 04:14 - CONCLUSION: 1. Slightly evolving left basal ganglia hemorrhage with surrounding edema and mass effect similar to September 08. Right frontal ventriculostomy tube unchanged. Right ventricular size relatively stable. Bishop Fulton MD Head Magnetic Resonance Angiography 08/27/16 0000 Signed Impressions: Service Date/Time: Saturday, August 27, 2016 16:49 - CONCLUSION: Negative MRA of the brain. Vargas Freitas MD FACR Brain MRI 08/27/16 0000 Signed Impressions: Service Date/Time: Saturday, August 27, 2016 16:49 - CONCLUSION: 1. Large thalamic hemorrhage as described above. Extensive periventricular white matter changes are noted. There is compression of the third ventricle. Ventriculostomy is seen in the right lateral ventricle. 2. Hemorrhage does extend down the white matter tracts to the level of the right cerebral peduncle. Vargas Freitas MD FACR Objective Remarks GENERAL: Not in distress, nonverbal. EYES: No scleral icterus. No injection or drainage. NECK: Supple, trachea midline. No JVD CARDIOVASCULAR: Regular rate and rhythm without murmurs, gallops, or rubs. RESPIRATORY: Breath sounds equal bilaterally. No accessory muscle use. Poor effort. GASTROINTESTINAL: Abdomen soft, non-tender, nondistended. MUSCULOSKELETAL: No cyanosis, or edema. Does not follow any commands. Opens eyes with noxious stimulus, Not tracking. Positive for right hemiparesis. Left preferential gaze Procedures PEG A/P Problem List: (1) ICH (intracerebral hemorrhage) ICD Code: I61.9 Status: Acute (2) Hypertensive emergency ICD Code: I16.1 Status: Resolved (3) Hypokalemia ICD Code: E87.6 Status: Resolved (4) Respiratory failure ICD Code: J96.90 Status: Chronic Assessment and Plan 61-year-old male with left basal ganglia hemorrhage, intraventricular extension test post placement of ventriculostomy drain. Left basal ganglia intraparenchymal hemorrhage with encephalopathy -s/p Right frontal ventriculostomy placement 08/26, CT head revealed left basal ganglia intraparenchymal hemorrhage 3.42 cm with extension to lateral ventricle , midline shift 5 mm to the right. Goal systolic blood pressure less than 140, . EEG 08/30: generalized slowing, no seizure activity. Neurosurgery continues to manage. Drain removed 09/17/16. Continue blood pressure control. Hypertensive emergency -Initially managed with Cardizem drip. Resolved. Continue Norvasc 10 mg daily, hydralazine to 100 mg every 6 hours, lisinopril 20 po bid, lopressor 100 bid. catapres 0.3 bid. Acute hypoxic and hypercarbic respiratory failure- secondary to Staphylococcus pneumonia, tracheostomy in place, continue T piece. Pulmonary following, chest x-ray from 09/22/16 shows improvement, still shows atelectasis. Continue pulmonary toilet Fever etiology to be the determined and could be central versus atelectasis. Fever workup if recurrent discussed with RN Escherichia coli UTI-status post treatment Failure to thrive, protein energy malnutrition- -Tube feeds , having BM, status post PEG tube placement by IR 09/19/16, continue Glucerna, tube feeds at goal. Consult physical therapy, out of bed. Hyperglycemia of Critical Illness-continue sliding scale with Accu-Cheks. Stable consider discontinuing sliding scale Prophylaxis - GI - Protonix - DVT - SCD Discharge Planning SSI pending, discharge to rehabilitation once placement available. Problem Qualifiers (1) ICH (intracerebral hemorrhage): Qualified Code: I61.0 - Nontraumatic subcortical hemorrhage of left cerebral hemisphere (2) Respiratory failure: Qualified Code: J96.00 - Acute respiratory failure, unspecified whether with hypoxia or hypercapnia Marin Ibarra MD Sep 25, 2016 12:00
[2016-09-25] MEDS: ENOXAPARIN SODIUM 40 MG/0.4 ML SYRINGE SQ SCH (13:08)
--- NOTE | 2016-09-25 17:05 | RADRPT ---
EXAM DATE/TIME: 09/25/2016 16:19 [place] COMPARISON: CHEST SINGLE AP, September 22, 2016, 6:26. INDICATIONS : Patient started having a fever today. MEDICAL HISTORY : Hypertension. SURGICAL HISTORY : Ventriculostomy. Tracheostomy. ENCOUNTER: Subsequent ACUITY: 2 weeks PAIN SCORE: Non-responsive. LOCATION: chest FINDINGS: A single view of the chest demonstrates basilar airspace disease. No significant effusion. No pneumot horax. Tracheostomy in satisfactory position. CONCLUSION: 1. There is basilar airspace disease. Differential diagnosis includes atelectasis and pneumonia. Find ings slightly increased on the left since September 22. No pneumothorax. Bishop Fulton MD on September 25, 2016 at 17:02 Board Certified Radiologist. This report was verified electronically.
[2016-09-25 18:19] LABS: BACTERIA, URINE FEW /hpf; BLOOD, URINE NEG (NEG); GLUCOSE,URINE NEG (NEG); HYALINE CAST, URINE 4 /lpf (RARE); KETONE, URINE NEG (NEG); MUCUS URINE FEW /lpf (OCC); NITRITE,URINE NEG (NEG); SQUAMOUS EPITHELIAL CELL URINE 1 /hpf (0-5); URINE COLOR YELLOW (YELLW/STRAW)
[2016-09-25 18:20] LABS: COMMENT (UR) CATH-CULTURE IND; CULTURE IF INDICATED CATH CULTURE IND
[2016-09-25] MEDS: PIPERACIL-TAZO 4.5 GM PREMIX 100 ML IV SCH ×2 (18:28→23:02)
--- NOTE | 2016-09-25 18:29 | HHI.PR ---
Subjective Remarks Has thick secretions today...Moving left side. On a T Bar 28 %. Tolerates feeds. No fever.. No response to commands. Objective Vital Signs Date Time Temp Pulse Resp B/P Pulse Ox O2 Delivery O2 Flow Rate FiO2 09/25/16 16:00 102.2 104 18 128/75 94 09/25/16 12:00 99.4 101 18 99/64 90 09/25/16 09:00 T-Piece 6.00 09/25/16 08:10 119 09/25/16 08:00 100.7 116 20 121/74 94 09/25/16 07:39 96 T-piece 28 09/25/16 04:00 100.8 102 23 120/74 94 09/25/16 00:40 93 T-piece 28 09/25/16 00:00 98.8 100 23 116/60 98 09/24/16 23:00 T-Piece 6.00 28 09/24/16 21:50 98.8 103 24 115/58 97 09/24/16 20:00 113 09/24/16 20:00 T-Piece 6.00 28 09/24/16 19:23 94 T-piece 6.00 28 I/O 09/24/16 09/24/16 09/24/16 09/25/16 09/25/16 09/25/16 07:00 15:00 23:00 07:00 15:00 23:00 Intake Total 600 ml 0 ml 0 ml 1206 ml Output Total 400 ml 100 ml 150 ml 250 ml Balance 200 ml -100 ml -150 ml 956 ml Intake Oral 0 ml 0 ml 0 ml 0 ml Tube Feeding 400 ml 826 ml Tube Irrigant 180 ml Other 200 ml 200 ml Output Urine Total 400 ml 100 ml 150 ml 250 ml # Voids 2 2 3 # Bowel Movements 1 0 1 2 3 Result Diagram: 09/25/16 0601 Objective Remarks This is an averagely built middle-aged man who is poorly responsive on a trach collar. He has weakness of his right extremities. HEENT: Head normocephalic. Pupils reactive. Throat is clear. Ears, no inflammation. NECK: Supple without venous distension. No thyromegaly or lymphadenopathy. CHEST: Decreased breath sounds at the bases. Few Crackles and Occasional upper chest wheezes. HEART: The heart sounds are regular, S1-S2. No murmur. No S3. ABDOMEN: The abdomen is soft, nontender. Bowel sounds are faint. No organomegaly. EXTREMITIES: Weakness and muscle wasting of the extremities. There is some edema of the right arm. The patient does move left extremities to stimuli. Skin was dry and warm. RECTAL: Exam is deferred. Assessment and Plan Assessment and Plan IMPRESSION 1. Status post left basal ganglia intraparenchymal hemorrhage with the right frontal ventriculostomy placement. 2. Acute respiratory failure resolved. 3. Bibasilar atelectasis and pneumonia. 4. History of uncontrolled hypertension. 5. Right hemiplegia. Plan : 1. Place on T collar 28 %. 2. Trach suction and lavage prn. 3. Nebs bid , duoneb. 4. Mucomyst nebs tid ,10 % 5. Tube feeds at 60 Cc. 6. PT evaluation. 7. CXR in Lynne White MD Sep 25, 2016 18:29
[2016-09-25] MEDS: RESP: ALBUTEROL 2.5 MG/IPRATROPIUM 0.5 MG NEB (SCH) INH (21:18)
[2016-09-26] VITALS (12 sets, daily range): BP systolic 102–141; BP diastolic 58–78; PULSE 77–107; RESP 17–20; TEMP 97.5–98.7; O2SAT 81–98
[2016-09-26] MEDS: RESP: ALBUTEROL 2.5 MG/IPRATROPIUM 0.5 MG NEB (SCH) INH ×4 (03:43→20:45)
[2016-09-26] MEDS: FREE WATER G-TUBE SCH ×3 (04:00→20:00)
[2016-09-26] MEDS: CHLORHEXIDINE GLUCONATE 2 % 1 PACK (2 CLOTHS) TOP SCH (04:00)
[2016-09-26] MEDS: PIPERACIL-TAZO 4.5 GM PREMIX 100 ML IV SCH ×3 (06:16→17:21)
[2016-09-26] MEDS: INSULIN ASPART SUPPLEMENTAL SCALE SQ SCH ×4 (06:20→21:09)
[2016-09-26] MEDS: hydrALAZINE HCL 100 MG TAB PO SCH ×4 (06:31→17:23)
[2016-09-26] MEDS: CHLORHEXIDINE 0.12% (ORAL KIT) 15 ML CUP MT SCH ×2 (08:00→20:00)
[2016-09-26] MEDS: RESP: ACETYLCYSTEINE 10% 30 ML NEB NEB SCH ×3 (08:00→16:00)
[2016-09-26] MEDS: SODIUM CHLORIDE 0.9% FLUSH 5 ML FLUSH IV FLUSH SCH ×2 (08:35→21:08)
[2016-09-26] MEDS: LISINOPRIL 20 MG TAB PO SCH ×2 (08:35→21:08)
[2016-09-26] MEDS: FAMOTIDINE 20 MG TAB NG SCH ×2 (08:35→21:08)
[2016-09-26] MEDS: BENEPROTEIN POWDER 1 PACK G-TUBE SCH ×3 (08:36→17:28)
[2016-09-26] MEDS: ARTIFICIAL TEARS OPTH SOLN 15 ML BTL EACH EYE SCH ×3 (08:36→17:23)
[2016-09-26] MEDS: METOPROLOL TARTRATE 50 MG TAB PO SCH ×2 (08:36→21:08)
[2016-09-26] MEDS: POLYETHYLENE GLYCOL 17 GM PKG PO SCH ×2 (09:00→21:08)
[2016-09-26] MEDS: JUVEN POWDER 1 PACK G-TUBE SCH ×2 (09:00→21:00)
[2016-09-26] MEDS: BISACODYL 10 MG SUPP RECTAL SCH (09:00)
[2016-09-26] MEDS: DOCUSATE SODIUM 100 MG CAP PO SCH ×2 (09:00→21:08)
[2016-09-26] MEDS: SODIUM CHLORIDE 0.9% FLUSH 5 ML FLUSH IVF SCH (09:00)
[2016-09-26] MEDS: LACTULOSE SYRUP 20 GM/30 ML CUP PO SCH ×2 (09:00→21:07)
[2016-09-26] MEDS: cloNIDine HCL 0.3 MG TAB PO SCH ×2 (10:10→21:08)
--- NOTE | 2016-09-26 12:03 | HHI.PR ---
Subjective Remarks Follow-up pneumonia. No recurrence of fever since started on Zosyn. Patient has pradhan trach secretions. Discussed with RN. Left message with family when necessary echo [phone] Objective Vitals Vital Signs Date Time Temp Pulse Resp B/P Pulse Ox O2 Delivery O2 Flow Rate FiO2 09/26/16 10:09 87 20 121/61 09/26/16 09:00 Trach Collar 6.00 09/26/16 08:47 94 Trach Collar 6.00 28 09/26/16 08:12 91 09/26/16 08:00 98.5 93 18 117/66 93 09/26/16 04:00 97.5 107 20 116/67 96 09/26/16 03:49 81 Trach Collar 28 09/26/16 00:00 98.6 77 17 103/67 95 09/25/16 22:40 Trach Collar 6.00 28 09/25/16 20:41 98.2 89 22 108/63 91 09/25/16 20:05 89 09/25/16 19:58 98 Trach Collar 28 09/25/16 16:00 102.2 104 18 128/75 94 I/O 09/25/16 09/25/16 09/25/16 09/26/16 09/26/16 09/26/16 07:00 15:00 23:00 07:00 15:00 23:00 Intake Total 0 ml 1206 ml 0 ml Output Total 150 ml 250 ml 250 ml Balance -150 ml 956 ml -250 ml Intake Oral 0 ml 0 ml 0 ml Tube Feeding 826 ml Tube Irrigant 180 ml Other 200 ml Output Urine Total 150 ml 250 ml 250 ml # Voids 2 3 # Bowel Movements 2 3 Result Diagram: 09/25/16 0601 Imaging Last Impressions Chest X-Ray 09/25/16 0000 Signed Impressions: Service Date/Time: September 16:19 - CONCLUSION: 1. There is basilar airspace disease. Differential diagnosis includes atelectasis and pneumonia. Findings slightly increased on the left since September 22. No pneumothorax. Bishop Fulton MD Gastrostomy Tube Placement 09/19/16 0000 Signed Impressions: Service Date/Time: Monday, September 19, 2016 16:01 - CONCLUSION: Uncomplicated gastrostomy tube placement as above. Chaitanya Rondon MD Head CT 09/17/16 0600 Signed Impressions: Service Date/Time: Saturday, September 17, 2016 04:14 - CONCLUSION: 1. Slightly evolving left basal ganglia hemorrhage with surrounding edema and mass effect similar to September 08. Right frontal ventriculostomy tube unchanged. Right ventricular size relatively stable. Bishop Fulton MD Head Magnetic Resonance Angiography 08/27/16 0000 Signed Impressions: Service Date/Time: Saturday, August 27, 2016 16:49 - CONCLUSION: Negative MRA of the brain. Vargas Freitas MD FACR Brain MRI 08/27/16 0000 Signed Impressions: Service Date/Time: Saturday, August 27, 2016 16:49 - CONCLUSION: 1. Large thalamic hemorrhage as described above. Extensive periventricular white matter changes are noted. There is compression of the third ventricle. Ventriculostomy is seen in the right lateral ventricle. 2. Hemorrhage does extend down the white matter tracts to the level of the right cerebral peduncle. Vargas Freitas MD FACR Objective Remarks GENERAL: Not in distress, nonverbal. EYES: No scleral icterus. No injection or drainage. NECK: Supple, trachea midline. No JVD CARDIOVASCULAR: Regular rate and rhythm without murmurs, gallops, or rubs. RESPIRATORY: Decreased breath sounds with rhonchi left base GASTROINTESTINAL: Abdomen soft, non-tender, nondistended. MUSCULOSKELETAL: No cyanosis, or edema. Does not follow any commands. Opens eyes with noxious stimulus, Not tracking. Positive for right hemiparesis. Left preferential gaze Procedures PEG A/P Problem List: (1) ICH (intracerebral hemorrhage) ICD Code: I61.9 Status: Acute (2) Hypertensive emergency ICD Code: I16.1 Status: Resolved (3) Hypokalemia ICD Code: E87.6 Status: Resolved (4) Respiratory failure ICD Code: J96.90 Status: Chronic Assessment and Plan 61-year-old male with left basal ganglia hemorrhage, intraventricular extension test post placement of ventriculostomy drain. Left basal ganglia intraparenchymal hemorrhage with encephalopathy -s/p Right frontal ventriculostomy placement 08/26, CT head revealed left basal ganglia intraparenchymal hemorrhage 3.42 cm with extension to lateral ventricle , midline shift 5 mm to the right. Goal systolic blood pressure less than 140, . EEG 08/30: generalized slowing, no seizure activity. Neurosurgery continues to manage. Drain removed 09/17/16. Continue blood pressure control. Hypertensive emergency -Initially managed with Cardizem drip. Resolved. Continue Norvasc 10 mg daily, hydralazine to 100 mg every 6 hours, lisinopril 20 po bid, lopressor 100 bid. catapres 0.3 bid. Acute hypoxic and hypercarbic respiratory failure- secondary to Staphylococcus pneumonia, tracheostomy in place, continue T piece. Pulmonary following, chest x-ray from 09/22/16 shows improvement, still shows atelectasis. Continue pulmonary toilet Fever secondary to pneumonia, atelectasis or maybe central. Chest x-ray image interpreted by me with bibasilar airspace disease. Continue IV Zosyn and continue nebulization. Follow cultures Escherichia coli UTI-status post treatment Failure to thrive, protein energy malnutrition- -Tube feeds , having BM, status post PEG tube placement by IR 09/19/16, continue Glucerna, tube feeds at goal. Consult physical therapy, out of bed. Hyperglycemia of Critical Illness-continue sliding scale with Accu-Cheks. Stable consider discontinuing sliding scale Prophylaxis - GI - Protonix - DVT - SCD Discharge Planning SSI pending, discharge to rehabilitation once placement available. Problem Qualifiers (1) ICH (intracerebral hemorrhage): Qualified Code: I61.0 - Nontraumatic subcortical hemorrhage of left cerebral hemisphere (2) Respiratory failure: Qualified Code: J96.00 - Acute respiratory failure, unspecified whether with hypoxia or hypercapnia Marin Ibarra MD Sep 26, 2016 12:03
[2016-09-26] MEDS: ENOXAPARIN SODIUM 40 MG/0.4 ML SYRINGE SQ SCH (13:46)
--- NOTE | 2016-09-26 18:07 | HHI.PR ---
Subjective Remarks Better today.Moving left side. On a T Bar 28 %. Tolerates feeds. No fever.No response to commands Objective Vital Signs Date Time Temp Pulse Resp B/P Pulse Ox O2 Delivery O2 Flow Rate FiO2 09/26/16 16:00 98.4 89 20 131/76 96 09/26/16 12:00 97.7 83 18 102/58 95 09/26/16 10:09 87 20 121/61 09/26/16 09:00 Trach Collar 6.00 09/26/16 08:47 94 Trach Collar 6.00 28 09/26/16 08:12 91 09/26/16 08:00 98.5 93 18 117/66 93 09/26/16 04:00 97.5 107 20 116/67 96 09/26/16 03:49 81 Trach Collar 28 09/26/16 00:00 98.6 77 17 103/67 95 09/25/16 22:40 Trach Collar 6.00 28 09/25/16 20:41 98.2 89 22 108/63 91 09/25/16 20:05 89 09/25/16 19:58 98 Trach Collar 28 I/O 09/25/16 09/25/16 09/25/16 09/26/16 09/26/16 09/26/16 07:00 15:00 23:00 07:00 15:00 23:00 Intake Total 0 ml 1206 ml 0 ml 532 ml Output Total 150 ml 250 ml 250 ml 500 ml Balance -150 ml 956 ml -250 ml -500 ml 532 ml Intake Oral 0 ml 0 ml 0 ml Tube Feeding 826 ml 332 ml Tube Irrigant 180 ml Other 200 ml 200 ml Output Urine Total 150 ml 250 ml 250 ml 500 ml # Voids 2 3 # Bowel Movements 2 3 0 Result Diagram: 09/25/16 0601 Objective Remarks This is an averagely built middle-aged man who is poorly responsive on a trach collar. He has weakness of his right extremities. HEENT: Head normocephalic. Pupils reactive. Throat is clear. Ears, no inflammation. NECK: Supple without venous distension. No thyromegaly or lymphadenopathy. CHEST: Decreased breath sounds at the bases. Few upper chest wheezes. HEART: The heart sounds are regular, S1-S2. No murmur. No S3. ABDOMEN: The abdomen is soft, nontender. Bowel sounds are faint. No organomegaly. EXTREMITIES: Weakness and muscle wasting of the extremities. There is some edema of the right arm. The patient does move left extremities to stimuli. Skin was dry and warm. RECTAL: Exam is deferred. Assessment and Plan Assessment and Plan IMPRESSION 1. Status post left basal ganglia intraparenchymal hemorrhage with the right frontal ventriculostomy placement. 2. Acute respiratory failure resolved. 3. Bibasilar atelectasis and pneumonia. 4. History of uncontrolled hypertension. 5. Right hemiplegia. Plan : 1. Place on T collar 28 %. 2. Trach suction and lavage prn. 3. Nebs bid , duoneb. 4. Cont Mucomyst nebs tid ,10 % 5. Tube feeds at 60 Cc. 6. PT evaluation. 7. BMP in am Lynne White MD Sep 26, 2016 18:07
[2016-09-27] VITALS (8 sets, daily range): BP systolic 132–146; BP diastolic 76–82; PULSE 83–87; RESP 18–20; TEMP 97.2–98.6; O2SAT 93–98
[2016-09-27] MEDS: hydrALAZINE HCL 100 MG TAB PO SCH ×4 (00:11→17:45)
[2016-09-27] MEDS: PIPERACIL-TAZO 4.5 GM PREMIX 100 ML IV SCH ×4 (00:12→18:05)
[2016-09-27] MEDS: RESP: ALBUTEROL 2.5 MG/IPRATROPIUM 0.5 MG NEB (SCH) INH ×4 (03:47→23:56)
[2016-09-27] MEDS: RESP: ACETYLCYSTEINE 10% 30 ML NEB NEB SCH ×4 (03:48→23:56)
[2016-09-27] MEDS: CHLORHEXIDINE GLUCONATE 2 % 1 PACK (2 CLOTHS) TOP SCH (04:00)
[2016-09-27] MEDS: FREE WATER G-TUBE SCH ×3 (04:00→20:00)
[2016-09-27 06:26] LABS: BICARBONATE 31.7 MEQ/L (21.0-32.0); POTASSIUM 3.3 MEQ/L (3.5-5.1)
[2016-09-27] MEDS: INSULIN ASPART SUPPLEMENTAL SCALE SQ SCH ×4 (06:38→21:00)
[2016-09-27] MEDS: JUVEN POWDER 1 PACK G-TUBE SCH ×2 (09:00→21:00)
[2016-09-27] MEDS: SODIUM CHLORIDE 0.9% FLUSH 5 ML FLUSH IVF SCH (09:00)
--- NOTE | 2016-09-27 09:18 | HHI.PR ---
Subjective Remarks Follow-up pneumonia. No fever. RN reports left ear swelling and redness. Discussed with daughter yesterday Objective Vitals Vital Signs Date Time Temp Pulse Resp B/P Pulse Ox O2 Delivery O2 Flow Rate FiO2 09/27/16 08:13 97 Trach Collar 6.00 28 09/27/16 04:00 98.2 87 20 146/78 98 09/27/16 03:51 93 Trach Collar 28 09/27/16 00:00 98.0 83 20 141/76 95 09/26/16 20:49 98 Trach Collar 28 09/26/16 20:03 92 09/26/16 20:00 Trach Collar 28 09/26/16 20:00 98.7 91 20 141/78 93 09/26/16 16:00 98.4 89 20 131/76 96 09/26/16 12:00 97.7 83 18 102/58 95 09/26/16 10:09 87 20 121/61 I/O 09/26/16 09/26/16 09/26/16 09/27/16 09/27/16 09/27/16 07:00 15:00 23:00 07:00 15:00 23:00 Intake Total 0 ml 532 ml 423 ml Output Total 250 ml 500 ml Balance -250 ml -500 ml 532 ml 423 ml Intake Oral 0 ml Tube Feeding 332 ml 323 ml Other 200 ml 100 ml Output Urine Total 250 ml 500 ml # Voids 2 # Bowel Movements 0 4 Result Diagram: 09/25/16 0601 09/27/16 0456 Imaging Last Impressions Chest X-Ray 09/25/16 0000 Signed Impressions: Service Date/Time: September 16:19 - CONCLUSION: 1. There is basilar airspace disease. Differential diagnosis includes atelectasis and pneumonia. Findings slightly increased on the left since September 22. No pneumothorax. Bishop Fulton MD Gastrostomy Tube Placement 09/19/16 0000 Signed Impressions: Service Date/Time: Monday, September 19, 2016 16:01 - CONCLUSION: Uncomplicated gastrostomy tube placement as above. Chaitanya Rondon MD Head CT 09/17/16 0600 Signed Impressions: Service Date/Time: Saturday, September 17, 2016 04:14 - CONCLUSION: 1. Slightly evolving left basal ganglia hemorrhage with surrounding edema and mass effect similar to September 08. Right frontal ventriculostomy tube unchanged. Right ventricular size relatively stable. Bishop Fulton MD Head Magnetic Resonance Angiography 08/27/16 0000 Signed Impressions: Service Date/Time: Saturday, August 27, 2016 16:49 - CONCLUSION: Negative MRA of the brain. Vargas Freitas MD FACR Brain MRI 08/27/16 0000 Signed Impressions: Service Date/Time: Saturday, August 27, 2016 16:49 - CONCLUSION: 1. Large thalamic hemorrhage as described above. Extensive periventricular white matter changes are noted. There is compression of the third ventricle. Ventriculostomy is seen in the right lateral ventricle. 2. Hemorrhage does extend down the white matter tracts to the level of the right cerebral peduncle. Vargas Freitas MD FACR Objective Remarks GENERAL: Not in distress, nonverbal. EAR: Left pinna inflamed. Tympanic membrane intact EYES: No scleral icterus. No injection or drainage. NECK: Supple, trachea midline. No JVD CARDIOVASCULAR: Regular rate and rhythm without murmurs, gallops, or rubs. RESPIRATORY: Course breath sounds GASTROINTESTINAL: Abdomen soft, non-tender, nondistended. MUSCULOSKELETAL: No cyanosis, or edema. Does not follow any commands. Opens eyes with noxious stimulus, Not tracking. Positive for right hemiparesis. Left preferential gaze Procedures PEG A/P Problem List: (1) ICH (intracerebral hemorrhage) ICD Code: I61.9 Status: Acute (2) Hypertensive emergency ICD Code: I16.1 Status: Resolved (3) Hypokalemia ICD Code: E87.6 Status: Resolved (4) Respiratory failure ICD Code: J96.90 Status: Chronic Assessment and Plan 61-year-old male with left basal ganglia hemorrhage, intraventricular extension test post placement of ventriculostomy drain. Left basal ganglia intraparenchymal hemorrhage with encephalopathy -s/p Right frontal ventriculostomy placement 08/26, CT head revealed left basal ganglia intraparenchymal hemorrhage 3.42 cm with extension to lateral ventricle , midline shift 5 mm to the right. Goal systolic blood pressure less than 140, . EEG 08/30: generalized slowing, no seizure activity. Neurosurgery continues to manage. Drain removed 09/17/16. Continue blood pressure control. Hypertensive emergency -Initially managed with Cardizem drip. Resolved. Continue Norvasc 10 mg daily, hydralazine to 100 mg every 6 hours, lisinopril 20 po bid, lopressor 100 bid. catapres 0.3 bid. Acute hypoxic and hypercarbic respiratory failure- secondary to Staphylococcus pneumonia, tracheostomy in place, continue T piece. Pulmonary following, chest x-ray from 09/22/16 shows improvement, still shows atelectasis. Continue pulmonary toilet Fever secondary to pneumonia, atelectasis or maybe central. Chest x-ray image interpreted by me with bibasilar airspace disease. Continue IV Zosyn and continue nebulization. Follow cultures. Improving Left pinna cellulitis. Topical antibiotic patient already on IV Zosyn. Wound care. Pressure offloading Escherichia coli UTI-status post treatment Failure to thrive, protein energy malnutrition- -Tube feeds , having BM, status post PEG tube placement by IR 09/19/16, continue Glucerna, tube feeds at goal. Consult physical therapy, out of bed. Hyperglycemia of Critical Illness-continue sliding scale with Accu-Cheks. Stable consider discontinuing sliding scale Prophylaxis - GI - Protonix - DVT - SCD Discharge Planning SSI pending, discharge to rehabilitation once placement available. Problem Qualifiers (1) ICH (intracerebral hemorrhage): Qualified Code: I61.0 - Nontraumatic subcortical hemorrhage of left cerebral hemisphere (2) Respiratory failure: Qualified Code: J96.00 - Acute respiratory failure, unspecified whether with hypoxia or hypercapnia Marin Ibarra MD Sep 27, 2016 09:18
[2016-09-27] MEDS ORDERED: POTASSIUM BICARBONATE 25 MEQ EFFERVESCENT TAB G-TUBE ONE (10:00)
[2016-09-27] MEDS: LACTULOSE SYRUP 20 GM/30 ML CUP PO SCH ×2 (10:16→21:49)
[2016-09-27] MEDS: cloNIDine HCL 0.3 MG TAB PO SCH ×2 (10:16→21:49)
[2016-09-27] MEDS: FAMOTIDINE 20 MG TAB NG SCH ×2 (10:16→21:49)
[2016-09-27] MEDS: LISINOPRIL 20 MG TAB PO SCH ×2 (10:16→21:49)
[2016-09-27] MEDS: POLYETHYLENE GLYCOL 17 GM PKG PO SCH ×2 (10:17→21:00)
[2016-09-27] MEDS: METOPROLOL TARTRATE 50 MG TAB PO SCH ×2 (10:17→21:49)
[2016-09-27] MEDS: ARTIFICIAL TEARS OPTH SOLN 15 ML BTL EACH EYE SCH ×3 (10:18→17:47)
[2016-09-27] MEDS: BENEPROTEIN POWDER 1 PACK G-TUBE SCH ×3 (10:18→17:47)
[2016-09-27] MEDS: SODIUM CHLORIDE 0.9% FLUSH 5 ML FLUSH IV FLUSH SCH ×2 (10:19→21:50)
[2016-09-27] MEDS: DOCUSATE SODIUM 100 MG CAP PO SCH ×2 (10:20→21:00)
[2016-09-27] MEDS: BISACODYL 10 MG SUPP RECTAL SCH (10:21)
[2016-09-27] MEDS: CHLORHEXIDINE 0.12% (ORAL KIT) 15 ML CUP MT SCH ×2 (11:28→20:00)
[2016-09-27] MEDS: NEOMYCIN/POLYMYXIN/BACITRACIN OINT 15 GM TUBE TOPICAL SCH ×2 (13:26→21:00)
[2016-09-27] MEDS: ENOXAPARIN SODIUM 40 MG/0.4 ML SYRINGE SQ SCH (13:36)
--- NOTE | 2016-09-27 18:47 | HHI.PR ---
Subjective Remarks No change. On a T Bar 28 %. Needs suctioning No fever.No response to commands Objective Vital Signs Date Time Temp Pulse Resp B/P Pulse Ox O2 Delivery O2 Flow Rate FiO2 09/27/16 12:00 98.3 84 20 136/78 96 09/27/16 08:13 97 Trach Collar 6.00 28 09/27/16 08:05 Trach Collar 28 09/27/16 08:00 97.2 87 20 134/82 97 09/27/16 04:00 98.2 87 20 146/78 98 09/27/16 03:51 93 Trach Collar 28 09/27/16 00:00 98.0 83 20 141/76 95 09/26/16 20:49 98 Trach Collar 28 09/26/16 20:03 92 09/26/16 20:00 Trach Collar 28 09/26/16 20:00 98.7 91 20 141/78 93 I/O 09/26/16 09/26/16 09/26/16 09/27/16 09/27/16 09/27/16 07:00 15:00 23:00 07:00 15:00 23:00 Intake Total 0 ml 532 ml 423 ml Output Total 250 ml 500 ml Balance -250 ml -500 ml 532 ml 423 ml Intake Oral 0 ml Tube Feeding 332 ml 323 ml Other 200 ml 100 ml Output Urine Total 250 ml 500 ml # Voids 2 # Bowel Movements 0 4 Result Diagram: 09/25/16 0601 09/27/16 0456 Objective Remarks This is an averagely built middle-aged man who is poorly responsive on a trach collar. He has weakness of his right extremities. HEENT: Head normocephalic. Pupils reactive. Throat is clear. NECK: Supple without venous distension. No thyromegaly or lymphadenopathy. CHEST: Decreased breath sounds at the bases. Few wheezes. HEART: The heart sounds are regular, S1-S2. No murmur. No S3. ABDOMEN: The abdomen is soft, nontender. Bowel sounds are faint. No organomegaly. EXTREMITIES: Weakness and muscle wasting of the extremities. There is some edema of the right arm. The patient does move left extremities . Skin was dry and warm. RECTAL: Exam is deferred. Assessment and Plan Assessment and Plan IMPRESSION 1. Status post left basal ganglia intraparenchymal hemorrhage with the right frontal ventriculostomy placement. 2. Acute respiratory failure resolved. 3. Bibasilar atelectasis and pneumonia. 4. History of uncontrolled hypertension. 5. Right hemiplegia. Plan : 1. Cont on T collar 28 %. 2. Trach suction and lavage prn. 3. Nebs bid , duoneb. 4. Cont Mucomyst nebs tid ,10 % 5. Tube feeds at 60 Cc. 6. PT evaluation. Lynne White MD Sep 27, 2016 18:47
[2016-09-28] VITALS (10 sets, daily range): BP systolic 114–153; BP diastolic 74–87; PULSE 76–94; RESP 16–21; TEMP 98–99.4; O2SAT 94–99
[2016-09-28] MEDS: PIPERACIL-TAZO 4.5 GM PREMIX 100 ML IV SCH ×3 (00:30→11:45)
[2016-09-28] MEDS: hydrALAZINE HCL 100 MG TAB PO SCH ×4 (00:30→18:40)
[2016-09-28] MEDS: FREE WATER G-TUBE SCH ×3 (04:00→20:00)
[2016-09-28] MEDS: CHLORHEXIDINE GLUCONATE 2 % 1 PACK (2 CLOTHS) TOP SCH (04:00)
[2016-09-28] MEDS: RESP: ALBUTEROL 2.5 MG/IPRATROPIUM 0.5 MG NEB (SCH) INH ×4 (04:44→22:03)
[2016-09-28] MEDS: INSULIN ASPART SUPPLEMENTAL SCALE SQ SCH ×4 (05:57→21:00)
[2016-09-28] MEDS: NEOMYCIN/POLYMYXIN/BACITRACIN OINT 15 GM TUBE TOPICAL SCH ×2 (08:09→21:00)
[2016-09-28] MEDS: ARTIFICIAL TEARS OPTH SOLN 15 ML BTL EACH EYE SCH ×3 (08:09→18:41)
[2016-09-28] MEDS: LISINOPRIL 20 MG TAB PO SCH ×2 (08:10→22:00)
[2016-09-28] MEDS: SODIUM CHLORIDE 0.9% FLUSH 5 ML FLUSH IV FLUSH SCH ×2 (08:10→22:03)
[2016-09-28] MEDS: FAMOTIDINE 20 MG TAB NG SCH ×2 (08:10→22:02)
[2016-09-28] MEDS: LACTULOSE SYRUP 20 GM/30 ML CUP PO SCH ×2 (08:10→22:00)
[2016-09-28] MEDS: BISACODYL 10 MG SUPP RECTAL SCH (08:11)
[2016-09-28] MEDS: METOPROLOL TARTRATE 50 MG TAB PO SCH ×2 (08:11→22:01)
[2016-09-28] MEDS: POLYETHYLENE GLYCOL 17 GM PKG PO SCH ×2 (08:12→21:00)
[2016-09-28] MEDS: DOCUSATE SODIUM 100 MG CAP PO SCH ×2 (08:12→21:00)
[2016-09-28] MEDS: BENEPROTEIN POWDER 1 PACK G-TUBE SCH ×3 (08:18→18:40)
[2016-09-28] MEDS: JUVEN POWDER 1 PACK G-TUBE SCH ×2 (08:18→21:00)
[2016-09-28] MEDS: SODIUM CHLORIDE 0.9% FLUSH 5 ML FLUSH IVF SCH (08:19)
[2016-09-28] MEDS: cloNIDine HCL 0.3 MG TAB PO SCH ×2 (08:19→22:02)
[2016-09-28] MEDS: CHLORHEXIDINE 0.12% (ORAL KIT) 15 ML CUP MT SCH ×2 (08:29→20:00)
[2016-09-28 08:55] LABS: BICARBONATE 30.7 MEQ/L (21.0-32.0); MAGNESIUM 2.5 MG/DL (1.5-2.5); POTASSIUM 3.2 MEQ/L (3.5-5.1)
[2016-09-28] MEDS: RESP: ACETYLCYSTEINE 10% 30 ML NEB NEB SCH ×3 (09:07→22:03)
--- NOTE | 2016-09-28 12:04 | HHI.PR ---
Subjective Remarks Follow-up pneumonia. No fever. No episodes of respiratory distress. Discussed with RN Objective Vitals Vital Signs Date Time Temp Pulse Resp B/P Pulse Ox O2 Delivery O2 Flow Rate FiO2 09/28/16 09:12 94 T-piece 28 09/28/16 08:00 98.4 81 21 132/74 94 09/28/16 06:25 90 09/28/16 04:00 99.4 83 20 142/80 95 09/28/16 00:01 98 T-piece 28 09/28/16 00:00 98.0 76 20 153/87 99 09/27/16 20:25 T-Piece 6.00 28 09/27/16 20:00 97.8 87 20 142/82 94 09/27/16 16:00 98.6 84 18 132/81 98 I/O 09/27/16 09/27/16 09/27/16 09/28/16 09/28/16 09/28/16 07:00 15:00 23:00 07:00 15:00 23:00 Intake Total 423 ml 436 ml 565 ml 600 ml Balance 423 ml 436 ml 565 ml 600 ml Intake Oral 0 ml 0 ml Tube Feeding 323 ml 286 ml 365 ml 400 ml Other 100 ml 150 ml 200 ml 200 ml # Voids 2 2 2 # Bowel Movements 4 2 2 Result Diagram: 09/25/16 0601 09/28/16 0617 Objective Remarks GENERAL: Not in distress, nonverbal. EAR: Left pinna inflamed which is stable. Tympanic membrane intact EYES: No scleral icterus. No injection or drainage. NECK: Supple, trachea midline. No JVD CARDIOVASCULAR: Regular rate and rhythm without murmurs, gallops, or rubs. RESPIRATORY: Course breath sounds GASTROINTESTINAL: Abdomen soft, non-tender, nondistended. MUSCULOSKELETAL: No cyanosis, or edema. Does not follow any commands. Opens eyes with noxious stimulus, Not tracking. Positive for right hemiparesis. Left preferential gaze Procedures PEG A/P Problem List: (1) ICH (intracerebral hemorrhage) ICD Code: I61.9 Status: Acute (2) Hypertensive emergency ICD Code: I16.1 Status: Resolved (3) Hypokalemia ICD Code: E87.6 Status: Resolved (4) Respiratory failure ICD Code: J96.90 Status: Chronic Assessment and Plan 61-year-old male with left basal ganglia hemorrhage, intraventricular extension test post placement of ventriculostomy drain. Left basal ganglia intraparenchymal hemorrhage with encephalopathy -s/p Right frontal ventriculostomy placement 08/26, CT head revealed left basal ganglia intraparenchymal hemorrhage 3.42 cm with extension to lateral ventricle , midline shift 5 mm to the right. Goal systolic blood pressure less than 140, . EEG 08/30: generalized slowing, no seizure activity. Neurosurgery continues to manage. Drain removed 09/17/16. Continue blood pressure control. Hypertensive emergency -Initially managed with Cardizem drip. Resolved. Continue Norvasc 10 mg daily, hydralazine to 100 mg every 6 hours, lisinopril 20 po bid, lopressor 100 bid. catapres 0.3 bid. Acute hypoxic and hypercarbic respiratory failure- secondary to Staphylococcus pneumonia, tracheostomy in place, continue T piece. Pulmonary following, chest x-ray from 09/22/16 shows improvement, still shows atelectasis. Continue pulmonary toilet Fever secondary to pneumonia, atelectasis or maybe central. Chest x-ray image interpreted by me with bibasilar airspace disease. Continue IV Zosyn and continue nebulization. Follow cultures. Improving Left pinna cellulitis. Stable. Topical antibiotic patient already on IV Zosyn. Wound care. Pressure offloading Escherichia coli UTI-status post treatment Failure to thrive, protein energy malnutrition- -Tube feeds , having BM, status post PEG tube placement by IR 09/19/16, continue Glucerna, tube feeds at goal. Consult physical therapy, out of bed. Hyperglycemia of Critical Illness-continue sliding scale with Accu-Cheks. Stable consider discontinuing sliding scale Hypernatremia and hypokalemia. Increase free water through May 4 times a day and replace potassium with 60 mEq potassium 1. Repeat BMP and magnesium in the morning Prophylaxis - GI - Protonix - DVT - SCD Discharge Planning SSI pending, discharge to rehabilitation once placement available. Problem Qualifiers (1) ICH (intracerebral hemorrhage): Qualified Code: I61.0 - Nontraumatic subcortical hemorrhage of left cerebral hemisphere (2) Respiratory failure: Qualified Code: J96.00 - Acute respiratory failure, unspecified whether with hypoxia or hypercapnia Marin Ibarra MD Sep 28, 2016 12:04
[2016-09-28] MEDS ORDERED: POTASSIUM CHLORIDE 20 MEQ PWD PACKET GT ONE (14:30)
[2016-09-28] MEDS: LEVOFLOXACIN 750 MG TAB G-TUBE SCH (14:39)
[2016-09-28] MEDS: ENOXAPARIN SODIUM 40 MG/0.4 ML SYRINGE SQ SCH (14:40)
--- NOTE | 2016-09-28 16:36 | HHI.PR ---
Subjective Remarks Moves arm and pulls at trach collar.. On a T Bar 28 %. No response to commands Objective Vital Signs Date Time Temp Pulse Resp B/P Pulse Ox O2 Delivery O2 Flow Rate FiO2 09/28/16 12:00 98.0 80 18 133/80 94 09/28/16 09:12 94 T-piece 28 09/28/16 08:00 98.4 81 21 132/74 94 09/28/16 06:25 90 09/28/16 04:00 99.4 83 20 142/80 95 09/28/16 00:01 98 T-piece 28 09/28/16 00:00 98.0 76 20 153/87 99 09/27/16 20:25 T-Piece 6.00 28 09/27/16 20:00 97.8 87 20 142/82 94 I/O 09/27/16 09/27/16 09/27/16 09/28/16 09/28/16 09/28/16 07:00 15:00 23:00 07:00 15:00 23:00 Intake Total 423 ml 436 ml 565 ml 600 ml Balance 423 ml 436 ml 565 ml 600 ml Intake Oral 0 ml 0 ml Tube Feeding 323 ml 286 ml 365 ml 400 ml Other 100 ml 150 ml 200 ml 200 ml # Voids 2 2 2 # Bowel Movements 4 2 2 Result Diagram: 09/25/16 0601 09/28/16 0617 Objective Remarks This is an averagely built middle-aged man who is poorly responsive on a trach collar. He has weakness of his right extremities. HEENT: Head normocephalic. Pupils reactive. Throat is clear. NECK: Supple without venous distension. No thyromegaly or lymphadenopathy. CHEST: Decreased breath sounds at the bases.Occ basal crackles. HEART: The heart sounds are regular, S1-S2. No murmur. No S3. ABDOMEN: The abdomen is soft, nontender. Bowel sounds are faint. No organomegaly. EXTREMITIES: Weakness and muscle wasting of the extremities. There is some edema of the right arm. The patient does move left extremities . Skin was dry and warm. RECTAL: Exam is deferred. Assessment and Plan Assessment and Plan IMPRESSION 1. Status post left basal ganglia intraparenchymal hemorrhage with the right frontal ventriculostomy placement. 2. Acute respiratory failure resolved. 3. Bibasilar atelectasis and pneumonia. 4. History of uncontrolled hypertension. 5. Right hemiplegia. Plan : 1. Cont on T collar 28 %. 2. Trach suction and lavage prn. 3. Nebs bid , duoneb. 4. D/C Mucomyst 5. Tube feeds at 60 CC. 6. PT evaluation. Lynne White MD Sep 28, 2016 16:36
[2016-09-29] VITALS (11 sets, daily range): BP systolic 127–149; BP diastolic 70–87; PULSE 89–109; RESP 20–24; TEMP 98.6–100.1; O2SAT 95–99
[2016-09-29] MEDS: hydrALAZINE HCL 100 MG TAB PO SCH ×4 (01:56→18:09)
[2016-09-29] MEDS: RESP: ALBUTEROL 2.5 MG/IPRATROPIUM 0.5 MG NEB (SCH) INH ×4 (03:45→21:16)
[2016-09-29] MEDS: CHLORHEXIDINE GLUCONATE 2 % 1 PACK (2 CLOTHS) TOP SCH (04:00)
[2016-09-29] MEDS: FREE WATER G-TUBE SCH ×2 (04:00→12:00)
[2016-09-29] MEDS: INSULIN ASPART SUPPLEMENTAL SCALE SQ SCH ×4 (06:40→22:36)
[2016-09-29 07:39] LABS: BICARBONATE 26.5 MEQ/L (21.0-32.0); MAGNESIUM 2.4 MG/DL (1.5-2.5); POTASSIUM 3.8 MEQ/L (3.5-5.1)
[2016-09-29] MEDS: CHLORHEXIDINE 0.12% (ORAL KIT) 15 ML CUP MT SCH ×2 (08:00→20:00)
[2016-09-29] MEDS: LISINOPRIL 20 MG TAB PO SCH ×2 (08:54→22:33)
[2016-09-29] MEDS: FAMOTIDINE 20 MG TAB NG SCH ×2 (08:54→22:33)
[2016-09-29] MEDS: METOPROLOL TARTRATE 50 MG TAB PO SCH ×2 (08:54→22:34)
[2016-09-29] MEDS: LEVOFLOXACIN 750 MG TAB G-TUBE SCH (08:54)
[2016-09-29] MEDS: NEOMYCIN/POLYMYXIN/BACITRACIN OINT 15 GM TUBE TOPICAL SCH ×2 (08:55→22:37)
[2016-09-29] MEDS: ARTIFICIAL TEARS OPTH SOLN 15 ML BTL EACH EYE SCH ×3 (08:55→18:09)
[2016-09-29] MEDS: LACTULOSE SYRUP 20 GM/30 ML CUP PO SCH ×2 (09:00→21:00)
[2016-09-29] MEDS: DOCUSATE SODIUM 100 MG CAP PO SCH ×2 (09:00→21:00)
[2016-09-29] MEDS: JUVEN POWDER 1 PACK G-TUBE SCH ×2 (09:00→21:00)
[2016-09-29] MEDS: SODIUM CHLORIDE 0.9% FLUSH 5 ML FLUSH IVF SCH (09:00)
[2016-09-29] MEDS: POLYETHYLENE GLYCOL 17 GM PKG PO SCH ×2 (09:00→22:33)
[2016-09-29] MEDS: BISACODYL 10 MG SUPP RECTAL SCH (09:00)
[2016-09-29] MEDS: BENEPROTEIN POWDER 1 PACK G-TUBE SCH ×3 (09:05→18:09)
[2016-09-29] MEDS: SODIUM CHLORIDE 0.9% FLUSH 5 ML FLUSH IV FLUSH SCH ×2 (09:05→22:34)
[2016-09-29] MEDS: cloNIDine HCL 0.3 MG TAB PO SCH ×2 (10:22→22:37)
[2016-09-29] MEDS: RESP: ACETYLCYSTEINE 10% 30 ML NEB NEB SCH ×3 (11:14→23:51)
[2016-09-29 12:07] LABS: HEMOGLOBIN A1b 1.4 %; HEMOGLOBIN LA1C 2.4 %; HEMOGLOBIN P3 4.9 %
[2016-09-29] MEDS: ENOXAPARIN SODIUM 40 MG/0.4 ML SYRINGE SQ SCH (15:08)
--- NOTE | 2016-09-29 15:49 | HHI.PR ---
Subjective Remarks Follow-up fever. MAXIMUM TEMPERATURE 100. Having loose stools bowel regimen on hold discussed with RN Objective Vitals Vital Signs Date Time Temp Pulse Resp B/P Pulse Ox O2 Delivery O2 Flow Rate FiO2 09/29/16 12:00 100.0 95 24 136/70 96 09/29/16 11:14 95 T-piece 28 09/29/16 10:35 T-Piece 6.00 28 09/29/16 10:25 89 20 135/81 09/29/16 08:00 94 09/29/16 08:00 100.1 94 20 137/82 96 09/29/16 04:00 99.3 94 20 147/85 95 09/29/16 00:00 99.6 109 20 127/78 95 09/28/16 22:06 95 T-piece 6.00 28 09/28/16 20:00 98.1 94 20 132/80 97 09/28/16 20:00 90 09/28/16 19:51 T-Piece 6.00 28 09/28/16 16:00 98.5 89 16 114/75 94 I/O 09/28/16 09/28/16 09/28/16 09/29/16 09/29/16 09/29/16 07:00 15:00 23:00 07:00 15:00 23:00 Intake Total 600 ml 1165 ml 0 ml Balance 600 ml 1165 ml 0 ml Intake Oral 0 ml 0 ml IV Total 100 ml Tube Feeding 400 ml 365 ml Tube Irrigant 200 ml Other 200 ml 500 ml # Voids 2 3 2 # Bowel Movements 2 4 1 Result Diagram: 09/25/16 0601 09/29/16 0702 Objective Remarks GENERAL: Not in distress, nonverbal. EAR: Left pinna inflamed which is stable. Tympanic membrane intact EYES: No scleral icterus. No injection or drainage. NECK: Supple, trachea midline. No JVD CARDIOVASCULAR: Regular rate and rhythm without murmurs, gallops, or rubs. RESPIRATORY: Coarse breath sounds GASTROINTESTINAL: Abdomen soft, non-tender, nondistended. MUSCULOSKELETAL: No cyanosis, or edema. Does not follow any commands. Opens eyes with noxious stimulus, Not tracking. Positive for right hemiparesis. Left preferential gaze Procedures PEG A/P Problem List: (1) ICH (intracerebral hemorrhage) ICD Code: I61.9 Status: Acute (2) Hypertensive emergency ICD Code: I16.1 Status: Resolved (3) Hypokalemia ICD Code: E87.6 Status: Resolved (4) Respiratory failure ICD Code: J96.90 Status: Chronic Assessment and Plan 61-year-old male with left basal ganglia hemorrhage, intraventricular extension test post placement of ventriculostomy drain. Left basal ganglia intraparenchymal hemorrhage with encephalopathy -s/p Right frontal ventriculostomy placement 08/26, CT head revealed left basal ganglia intraparenchymal hemorrhage 3.42 cm with extension to lateral ventricle , midline shift 5 mm to the right. Goal systolic blood pressure less than 140, . EEG 08/30: generalized slowing, no seizure activity. Neurosurgery continues to manage. Drain removed 09/17/16. Continue blood pressure control. Hypertensive emergency -Initially managed with Cardizem drip. Resolved. Continue Norvasc 10 mg daily, hydralazine to 100 mg every 6 hours, lisinopril 20 po bid, lopressor 100 bid. catapres 0.3 bid. Acute hypoxic and hypercarbic respiratory failure- secondary to Staphylococcus pneumonia, tracheostomy in place, continue T piece. Pulmonary following, chest x-ray from 09/22/16 shows improvement, still shows atelectasis. Continue pulmonary toilet Fever secondary to pneumonia, atelectasis or maybe central. Chest x-ray image interpreted by me with bibasilar airspace disease. Recurrent fever with loose stools. Check CBC, C. difficile and hold bowel regimen . Continue Levaquin and nebulization. Follow cultures. Left pinna cellulitis. Stable. Topical antibiotic patient already on Levaquin. Wound care. Pressure offloading Escherichia coli UTI-status post treatment Failure to thrive, protein energy malnutrition- status post PEG tube placement by IR 09/19/16, continue Glucerna, tube feeds at goal. Consult physical therapy, out of bed. Hyperglycemia of Critical Illness-continue sliding scale with Accu-Cheks. Stable consider discontinuing sliding scale Hypernatremia and hypokalemia. Repeat BMP and magnesium in the morning Prophylaxis - GI - Protonix - DVT - SCD Discharge Planning SSI pending, discharge to rehabilitation once placement available. Problem Qualifiers (1) ICH (intracerebral hemorrhage): Qualified Code: I61.0 - Nontraumatic subcortical hemorrhage of left cerebral hemisphere (2) Respiratory failure: Qualified Code: J96.00 - Acute respiratory failure, unspecified whether with hypoxia or hypercapnia Marin Ibarra MD Sep 29, 2016 15:49
--- NOTE | 2016-09-29 19:08 | HHI.PR ---
Subjective Remarks Moves left arm ..Still On a T Bar 28 %.Has low grade fever. No response to commands Objective Vital Signs Date Time Temp Pulse Resp B/P Pulse Ox O2 Delivery O2 Flow Rate FiO2 09/29/16 16:00 98.6 97 20 133/81 99 09/29/16 15:46 96 T-piece 6.00 28 09/29/16 12:00 100.0 95 24 136/70 96 09/29/16 11:14 95 T-piece 28 09/29/16 10:35 T-Piece 6.00 28 09/29/16 10:25 89 20 135/81 09/29/16 08:00 94 09/29/16 08:00 100.1 94 20 137/82 96 09/29/16 04:00 99.3 94 20 147/85 95 09/29/16 00:00 99.6 109 20 127/78 95 09/28/16 22:06 95 T-piece 6.00 28 09/28/16 20:00 98.1 94 20 132/80 97 09/28/16 20:00 90 09/28/16 19:51 T-Piece 6.00 28 I/O 09/28/16 09/28/16 09/28/16 09/29/16 09/29/16 09/29/16 07:00 15:00 23:00 07:00 15:00 23:00 Intake Total 600 ml 1165 ml 0 ml 0 ml Balance 600 ml 1165 ml 0 ml 0 ml Intake Oral 0 ml 0 ml 0 ml IV Total 100 ml Tube Feeding 400 ml 365 ml Tube Irrigant 200 ml Other 200 ml 500 ml # Voids 2 3 2 2 # Bowel Movements 2 4 1 1 Result Diagram: 09/25/16 0601 09/29/16 0702 Objective Remarks This is an averagely built middle-aged man who is poorly responsive on a trach collar. He has weakness of his right extremities. HEENT: Head normocephalic. Pupils reactive. Throat is clear. NECK: Supple without venous distension. No thyromegaly or lymphadenopathy. CHEST: Decreased breath sounds at the bases.Occ Wheeze . HEART: The heart sounds are regular, S1-S2. No murmur. No S3. ABDOMEN: The abdomen is soft, nontender. Bowel sounds are faint. No organomegaly. EXTREMITIES: Weakness and muscle wasting of the extremities. There is some edema of the right arm. The patient does move left extremities . Skin was dry and warm. RECTAL: Exam is deferred. Assessment and Plan Assessment and Plan IMPRESSION 1. Status post left basal ganglia intraparenchymal hemorrhage with the right frontal ventriculostomy placement. 2. Acute respiratory failure resolved. 3. Bibasilar atelectasis and pneumonia. 4. History of uncontrolled hypertension. 5. Right hemiplegia. Plan : 1. Cont on T collar 28 %. 2. Trach suction and lavage prn. 3. Nebs bid , duoneb. 4. BMP CBC. 5. Tube feeds at 60 CC. 6. PT evaluation. Lynne White MD Sep 29, 2016 19:08
[2016-09-29] MEDS: RESP: ALBUTEROL 2.5 MG/IPRATROPIUM 0.5 MG NEB (PRN) INH (23:51)
[2016-09-30] VITALS (9 sets, daily range): BP systolic 125–150; BP diastolic 60–91; PULSE 81–95; RESP 18–22; TEMP 97.4–98.9; O2SAT 95–97
[2016-09-30] MEDS: FREE WATER G-TUBE SCH ×4 (00:34→23:04)
[2016-09-30] MEDS: CHLORHEXIDINE GLUCONATE 2 % 1 PACK (2 CLOTHS) TOP SCH (01:55)
[2016-09-30] MEDS: hydrALAZINE HCL 100 MG TAB PO SCH ×4 (01:55→17:19)
[2016-09-30] MEDS: INSULIN ASPART SUPPLEMENTAL SCALE SQ SCH ×4 (05:38→21:00)
[2016-09-30] MEDS: CHLORHEXIDINE 0.12% (ORAL KIT) 15 ML CUP MT SCH ×2 (08:00→23:04)
[2016-09-30 08:02] LABS: BASOPHIL % 1.1 % (0.0-2.0); EOSINOPHIL # 0.3 TH/MM3 (0-0.4); EOSINOPHIL % 10.6 % (0.0-4.0); HEMATOCRIT 33.4 % (39.0-51.0); HEMO FLAGS DIFF FINAL; LYMPH % 30.7 % (9.0-44.0); LYMPHOCYTE # 0.8 TH/MM3 (1.0-4.8); MEAN CELL VOLUME 94.3 FL (80.0-100.0); MEAN CORPUSCULAR HEMOGLOBIN 31.9 PG (27.0-34.0); MEAN CORPUSCULAR HGB CONC 33.8 % (32.0-36.0); MONO % 16.4 % (0.0-8.0); NEUT % 41.2 % (16.0-70.0); PLATELET COUNT 162 TH/MM3 (150-450); RED BLOOD COUNT 3.54 MIL/MM3 (4.50-5.90); RED CELL DISTRIBUTION WIDTH 12.6 % (11.6-17.2); WHITE BLOOD COUNT 2.5 TH/MM3 (4.0-11.0)
[2016-09-30 08:26] LABS: BICARBONATE 27.8 MEQ/L (21.0-32.0); MAGNESIUM 2.4 MG/DL (1.5-2.5); POTASSIUM 3.7 MEQ/L (3.5-5.1)
[2016-09-30] MEDS: FAMOTIDINE 20 MG TAB NG SCH ×2 (08:41→22:16)
[2016-09-30] MEDS: LEVOFLOXACIN 750 MG TAB G-TUBE SCH (08:41)
[2016-09-30] MEDS: METOPROLOL TARTRATE 50 MG TAB PO SCH ×2 (08:41→22:16)
[2016-09-30] MEDS: LISINOPRIL 20 MG TAB PO SCH ×2 (08:41→22:16)
[2016-09-30] MEDS: SODIUM CHLORIDE 0.9% FLUSH 5 ML FLUSH IV FLUSH SCH ×2 (08:41→23:05)
[2016-09-30] MEDS: NEOMYCIN/POLYMYXIN/BACITRACIN OINT 15 GM TUBE TOPICAL SCH ×2 (08:42→21:00)
[2016-09-30] MEDS: BENEPROTEIN POWDER 1 PACK G-TUBE SCH ×3 (08:42→17:20)
[2016-09-30] MEDS: ARTIFICIAL TEARS OPTH SOLN 15 ML BTL EACH EYE SCH ×3 (08:42→17:20)
[2016-09-30] MEDS: JUVEN POWDER 1 PACK G-TUBE SCH (08:45)
[2016-09-30] MEDS: SODIUM CHLORIDE 0.9% FLUSH 5 ML FLUSH IVF SCH (09:00)
[2016-09-30] MEDS: POLYETHYLENE GLYCOL 17 GM PKG PO SCH ×2 (09:00→21:00)
[2016-09-30] MEDS: BISACODYL 10 MG SUPP RECTAL SCH (09:00)
[2016-09-30] MEDS: DOCUSATE SODIUM 100 MG CAP PO SCH ×2 (09:00→21:00)
[2016-09-30] MEDS: LACTULOSE SYRUP 20 GM/30 ML CUP PO SCH ×2 (09:00→21:00)
--- NOTE | 2016-09-30 10:02 | HHI.PR ---
Subjective Remarks Follow fever. MAXIMUM TEMPERATURE 99. No BM discussed with RN. Objective Vitals Vital Signs Date Time Temp Pulse Resp B/P Pulse Ox O2 Delivery O2 Flow Rate FiO2 09/30/16 09:47 97 T-piece 6.00 28 09/30/16 09:41 89 09/30/16 08:37 98.2 88 20 150/60 97 09/30/16 04:23 98.5 94 20 150/88 96 09/30/16 00:19 98.6 93 20 125/74 96 09/29/16 23:56 96 T-piece 28 09/29/16 21:30 T-Piece 6.00 28 09/29/16 20:41 99.0 107 24 149/87 96 09/29/16 20:00 96 09/29/16 16:00 98.6 97 20 133/81 99 09/29/16 15:46 96 T-piece 6.00 28 09/29/16 12:00 100.0 95 24 136/70 96 09/29/16 11:14 95 T-piece 28 09/29/16 10:35 T-Piece 6.00 28 09/29/16 10:25 89 20 135/81 I/O 09/29/16 09/29/16 09/29/16 09/30/16 09/30/16 09/30/16 07:00 15:00 23:00 07:00 15:00 23:00 Intake Total 0 ml 0 ml Balance 0 ml 0 ml Intake Oral 0 ml 0 ml # Voids 2 2 1 # Bowel Movements 1 1 2 1 Result Diagram: 09/30/16 0648 09/30/16 0648 Objective Remarks GENERAL: Not in distress, nonverbal. EAR: Left pinna inflamed which is improving tympanic membrane intact EYES: No scleral icterus. No injection or drainage. NECK: Supple, trachea midline. No JVD CARDIOVASCULAR: Regular rate and rhythm without murmurs, gallops, or rubs. RESPIRATORY: Coarse breath sounds GASTROINTESTINAL: Abdomen soft, non-tender, nondistended. MUSCULOSKELETAL: No cyanosis, or edema. Does not follow any commands. Opens eyes with noxious stimulus, Not tracking. Positive for right hemiparesis. Left preferential gaze Procedures PEG A/P Problem List: (1) ICH (intracerebral hemorrhage) ICD Code: I61.9 Status: Acute (2) Hypertensive emergency ICD Code: I16.1 Status: Resolved (3) Hypokalemia ICD Code: E87.6 Status: Resolved (4) Respiratory failure ICD Code: J96.90 Status: Chronic Assessment and Plan 61-year-old male with left basal ganglia hemorrhage, intraventricular extension test post placement of ventriculostomy drain. Left basal ganglia intraparenchymal hemorrhage with encephalopathy -s/p Right frontal ventriculostomy placement 08/26, CT head revealed left basal ganglia intraparenchymal hemorrhage 3.42 cm with extension to lateral ventricle , midline shift 5 mm to the right. Goal systolic blood pressure less than 140, . EEG 08/30: generalized slowing, no seizure activity. Neurosurgery continues to manage. Drain removed 09/17/16. Continue blood pressure control. Hypertensive emergency -Initially managed with Cardizem drip. Resolved. Continue Norvasc 10 mg daily, hydralazine to 100 mg every 6 hours, lisinopril 20 po bid, lopressor 100 bid. catapres 0.3 bid. Acute hypoxic and hypercarbic respiratory failure- secondary to Staphylococcus pneumonia, tracheostomy in place, continue T piece. Pulmonary following, chest x-ray from 09/22/16 shows improvement, still shows atelectasis. Continue pulmonary toilet Fever secondary to pneumonia, atelectasis or maybe central. Chest x-ray image interpreted by me with bibasilar airspace disease. Recurrent fever with loose stools. Improved fever and diarrhea. No leukocytosis.. Continue Levaquin and nebulization. Follow cultures. Left pinna cellulitis. Improving. Topical antibiotic patient already on Levaquin. Wound care. Pressure offloading Escherichia coli UTI-status post treatment Failure to thrive, protein energy malnutrition- status post PEG tube placement by IR 09/19/16, continue Glucerna, tube feeds at goal. Consult physical therapy, out of bed. Hyperglycemia of Critical Illness-continue sliding scale with Accu-Cheks. Stable consider discontinuing sliding scale Hypernatremia and hypokalemia. Increase free water 2 reported mL every 6 hours. Repeat BMP and magnesium in 2 days Prophylaxis - GI - Protonix - DVT - SCD Discharge Planning SSI pending, discharge to rehabilitation once placement available. Problem Qualifiers (1) ICH (intracerebral hemorrhage): Qualified Code: I61.0 - Nontraumatic subcortical hemorrhage of left cerebral hemisphere (2) Respiratory failure: Qualified Code: J96.00 - Acute respiratory failure, unspecified whether with hypoxia or hypercapnia Marin Ibarra MD Sep 30, 2016 10:02
[2016-09-30] MEDS: cloNIDine HCL 0.3 MG TAB PO SCH ×2 (11:48→22:16)
[2016-09-30] MEDS: ENOXAPARIN SODIUM 40 MG/0.4 ML SYRINGE SQ SCH (14:31)
--- NOTE | 2016-09-30 18:55 | HHI.PR ---
Subjective Remarks More alert .Still On a T Bar 28 %.Needs suctioning. No response to commands Objective Vital Signs Date Time Temp Pulse Resp B/P Pulse Ox O2 Delivery O2 Flow Rate FiO2 09/30/16 18:08 96 T-piece 6.00 28 09/30/16 16:00 97.4 81 18 126/73 96 09/30/16 12:12 T-Piece 6.00 28 09/30/16 12:00 98.9 95 22 137/86 95 09/30/16 09:47 97 T-piece 6.00 28 09/30/16 09:41 89 09/30/16 08:37 98.2 88 20 150/60 97 09/30/16 04:23 98.5 94 20 150/88 96 09/30/16 00:19 98.6 93 20 125/74 96 09/29/16 23:56 96 T-piece 28 09/29/16 21:30 T-Piece 6.00 28 09/29/16 20:41 99.0 107 24 149/87 96 09/29/16 20:00 96 I/O 09/29/16 09/29/16 09/29/16 09/30/16 09/30/16 09/30/16 07:00 15:00 23:00 07:00 15:00 23:00 Intake Total 0 ml 0 ml 1320 ml Balance 0 ml 0 ml 1320 ml Intake Oral 0 ml 0 ml Tube Feeding 720 ml Other 600 ml # Voids 2 2 1 # Bowel Movements 1 1 2 1 Result Diagram: 09/30/16 0648 09/30/16 0648 Objective Remarks This is an averagely built middle-aged man who is poorly responsive on a trach collar. He has weakness of his right extremities. HEENT: Head normocephalic. Pupils reactive. Throat is clear. NECK: Supple without venous distension. No thyromegaly or lymphadenopathy. CHEST: Decreased breath sounds at the bases.Occ Wheeze . HEART: The heart sounds are regular, S1-S2. No murmur. No S3. ABDOMEN: The abdomen is soft, nontender. Bowel sounds are faint. No organomegaly. EXTREMITIES: Weakness and muscle wasting of the extremities. The patient does move left extremities , and tried to squeeze hand.Skin was dry and warm. RECTAL: Exam is deferred. Assessment and Plan Assessment and Plan IMPRESSION 1. Status post left basal ganglia intraparenchymal hemorrhage with the right frontal ventriculostomy placement. 2. Acute respiratory failure resolved. 3. Bibasilar atelectasis and pneumonia. 4. History of uncontrolled hypertension. 5. Right hemiplegia. Plan : 1. Cont on T collar 28 %. 2. Trach suction and lavage prn. 3. Nebs bid , duoneb. 4. Antibiotic per ID 5. Tube feeds at 60 CC. 6. PT evaluation. Lynne White MD Sep 30, 2016 18:55
[2016-10-01] VITALS (9 sets, daily range): BP systolic 121–146; BP diastolic 75–86; PULSE 75–91; RESP 18–20; TEMP 97.4–98.6; O2SAT 95–97
[2016-10-01] MEDS: hydrALAZINE HCL 100 MG TAB PO SCH ×4 (01:44→17:16)
[2016-10-01] MEDS: FREE WATER G-TUBE SCH ×3 (04:00→20:00)
[2016-10-01] MEDS: CHLORHEXIDINE GLUCONATE 2 % 1 PACK (2 CLOTHS) TOP SCH (04:00)
[2016-10-01] MEDS: INSULIN ASPART SUPPLEMENTAL SCALE SQ SCH ×4 (06:07→20:51)
[2016-10-01] MEDS: POLYETHYLENE GLYCOL 17 GM PKG PO SCH ×2 (09:00→20:49)
[2016-10-01] MEDS: BISACODYL 10 MG SUPP RECTAL SCH (09:00)
[2016-10-01] MEDS: SODIUM CHLORIDE 0.9% FLUSH 5 ML FLUSH IVF SCH (09:00)
[2016-10-01] MEDS: LACTULOSE SYRUP 20 GM/30 ML CUP PO SCH ×2 (09:00→20:49)
[2016-10-01] MEDS: DOCUSATE SODIUM 100 MG CAP PO SCH ×2 (09:00→20:49)
[2016-10-01] MEDS: FAMOTIDINE 20 MG TAB NG SCH ×2 (09:06→20:46)
[2016-10-01] MEDS: SODIUM CHLORIDE 0.9% FLUSH 5 ML FLUSH IV FLUSH SCH ×2 (09:06→20:46)
[2016-10-01] MEDS: METOPROLOL TARTRATE 50 MG TAB PO SCH ×2 (09:06→20:47)
[2016-10-01] MEDS: LISINOPRIL 20 MG TAB PO SCH ×2 (09:06→20:46)
[2016-10-01] MEDS: cloNIDine HCL 0.3 MG TAB PO SCH ×2 (09:06→20:47)
[2016-10-01] MEDS: LEVOFLOXACIN 750 MG TAB G-TUBE SCH (09:06)
[2016-10-01] MEDS: CHLORHEXIDINE 0.12% (ORAL KIT) 15 ML CUP MT SCH ×2 (09:07→20:00)
[2016-10-01] MEDS: BENEPROTEIN POWDER 1 PACK G-TUBE SCH ×3 (09:07→17:16)
[2016-10-01] MEDS: ARTIFICIAL TEARS OPTH SOLN 15 ML BTL EACH EYE SCH ×3 (09:07→17:16)
[2016-10-01] MEDS: NEOMYCIN/POLYMYXIN/BACITRACIN OINT 15 GM TUBE TOPICAL SCH ×2 (09:08→20:47)
[2016-10-01] MEDS: ENOXAPARIN SODIUM 40 MG/0.4 ML SYRINGE SQ SCH (12:23)
--- NOTE | 2016-10-01 12:23 | HHI.PR ---
Subjective Remarks Follow-up diarrhea. Had loose stools last night but none today. Tolerating tube feeding. Discussed with RN Objective Vitals Vital Signs Date Time Temp Pulse Resp B/P Pulse Ox O2 Delivery O2 Flow Rate FiO2 10/01/16 12:11 98.1 75 20 121/75 96 10/01/16 09:10 86 10/01/16 08:09 98.6 85 18 145/81 97 10/01/16 04:00 98.0 91 20 146/86 96 10/01/16 00:00 98.2 80 20 145/83 96 09/30/16 20:00 T-Piece 6.00 28 09/30/16 20:00 86 09/30/16 20:00 97.7 86 20 140/91 96 09/30/16 18:08 96 T-piece 6.00 28 09/30/16 16:00 97.4 81 18 126/73 96 I/O 09/30/16 09/30/16 09/30/16 10/01/16 10/01/16 10/01/16 07:00 15:00 23:00 07:00 15:00 23:00 Intake Total 1320 ml 872 ml 872 ml Balance 1320 ml 872 ml 872 ml Intake Oral 0 ml 0 ml Tube Feeding 720 ml 672 ml 672 ml Other 600 ml 200 ml 200 ml # Voids 1 2 2 # Bowel Movements 1 0 Result Diagram: 09/30/1648 09/30/16 0648 Objective Remarks GENERAL: Not in distress, nonverbal. EAR: Left pinna inflamed which is improving EYES: No scleral icterus. No injection or drainage. NECK: Supple, trachea midline. No JVD CARDIOVASCULAR: Regular rate and rhythm without murmurs, gallops, or rubs. RESPIRATORY: Coarse breath sounds GASTROINTESTINAL: Abdomen soft, non-tender, nondistended. MUSCULOSKELETAL: No cyanosis, or edema. Does not follow any commands. Opens eyes with noxious stimulus, Not tracking. Positive for right hemiparesis. Left preferential gaze Procedures PEG A/P Problem List: (1) ICH (intracerebral hemorrhage) ICD Code: I61.9 Status: Acute (2) Hypertensive emergency ICD Code: I16.1 Status: Resolved (3) Hypokalemia ICD Code: E87.6 Status: Resolved (4) Respiratory failure ICD Code: J96.90 Status: Chronic Assessment and Plan 61-year-old male with left basal ganglia hemorrhage, intraventricular extension test post placement of ventriculostomy drain. Left basal ganglia intraparenchymal hemorrhage with encephalopathy -s/p Right frontal ventriculostomy placement 08/26, CT head revealed left basal ganglia intraparenchymal hemorrhage 3.42 cm with extension to lateral ventricle , midline shift 5 mm to the right. Goal systolic blood pressure less than 140, . EEG 08/30: generalized slowing, no seizure activity. Neurosurgery continues to manage. Drain removed 09/17/16. Continue blood pressure control. Hypertensive emergency -Initially managed with Cardizem drip. Resolved. Continue Norvasc 10 mg daily, hydralazine to 100 mg every 6 hours, lisinopril 20 po bid, lopressor 100 bid. catapres 0.3 bid. Acute hypoxic and hypercarbic respiratory failure- secondary to Staphylococcus pneumonia, tracheostomy in place, continue T piece. Pulmonary following, chest x-ray from 09/22/16 shows improvement, still shows atelectasis. Continue pulmonary toilet Fever secondary to pneumonia, atelectasis or maybe central. Chest x-ray image interpreted by me with bibasilar airspace disease. Recurrent fever with loose stools. Improved fever and diarrhea. No leukocytosis.. Continue Levaquin and nebulization. Follow cultures. Discussed with RN to submit stool for C. difficile Left pinna cellulitis. Improving. Topical antibiotic patient already on Levaquin. Wound care. Pressure offloading Escherichia coli UTI-status post treatment Failure to thrive, protein energy malnutrition- status post PEG tube placement by IR 09/19/16, continue Glucerna, tube feeds at goal. Consult physical therapy, out of bed. Hyperglycemia of Critical Illness-continue sliding scale with Accu-Cheks. Stable consider discontinuing sliding scale Hypernatremia and hypokalemia. Increase free water to 400 mL every 6 hours. Repeat BMP and magnesium in a.m. Prophylaxis - GI - Protonix - DVT - SCD Discharge Planning SSI pending, discharge to rehabilitation once placement available. Problem Qualifiers (1) ICH (intracerebral hemorrhage): Qualified Code: I61.0 - Nontraumatic subcortical hemorrhage of left cerebral hemisphere (2) Respiratory failure: Qualified Code: J96.00 - Acute respiratory failure, unspecified whether with hypoxia or hypercapnia Marin Ibarra MD Oct 01, 2016 12:22
--- NOTE | 2016-10-01 12:55 | HHI.PR ---
Subjective Remarks Awake .Remains On a T Bar 28 %.Needs suctioning. No response to commands Objective Vital Signs Date Time Temp Pulse Resp B/P Pulse Ox O2 Delivery O2 Flow Rate FiO2 10/01/16 12:11 98.1 75 20 121/75 96 10/01/16 09:10 86 10/01/16 08:09 98.6 85 18 145/81 97 10/01/16 04:00 98.0 91 20 146/86 96 10/01/16 00:00 98.2 80 20 145/83 96 09/30/16 20:00 T-Piece 6.00 28 09/30/16 20:00 86 09/30/16 20:00 97.7 86 20 140/91 96 09/30/16 18:08 96 T-piece 6.00 28 09/30/16 16:00 97.4 81 18 126/73 96 I/O 09/30/16 09/30/16 09/30/16 10/01/16 10/01/16 10/01/16 07:00 15:00 23:00 07:00 15:00 23:00 Intake Total 1320 ml 872 ml 872 ml Balance 1320 ml 872 ml 872 ml Intake Oral 0 ml 0 ml Tube Feeding 720 ml 672 ml 672 ml Other 600 ml 200 ml 200 ml # Voids 1 2 2 # Bowel Movements 1 0 Result Diagram: 09/30/16 0648 09/30/16 0648 Objective Remarks This is an averagely built middle-aged man who is poorly responsive on a trach collar. He has weakness of his right extremities. HEENT: Head normocephalic. Pupils reactive. Throat is clear. NECK: Supple without venous distension. No thyromegaly or lymphadenopathy. CHEST: Decreased breath sounds at the bases.Occ Wheeze . HEART: The heart sounds are regular, S1-S2. No murmur. No S3. ABDOMEN: The abdomen is soft, nontender. Bowel sounds are faint. No organomegaly. EXTREMITIES: Weakness and muscle wasting of the right extremities. The patient does move left extremities , .Skin was dry . RECTAL: Exam is deferred. Assessment and Plan Assessment and Plan IMPRESSION 1. Status post left basal ganglia intraparenchymal hemorrhage with the right frontal ventriculostomy placement. 2. Acute respiratory failure resolved. 3. Bibasilar atelectasis and pneumonia. 4. History of uncontrolled hypertension. 5. Right hemiplegia. Plan : 1. Cont on T collar 28 %. 2. Trach suction and lavage prn. 3. Nebs bid , duoneb. 4. Levaquin for 7 days. 5. Tube feeds at 60 CC. 6. PT evaluation. Lynne White MD Oct 01, 2016 12:55
--- NOTE | 2016-10-01 14:20 | HHI.HCPN ---
Reason for visit a. To assist with evaluation and management of symptoms including: pain, dyspnea, debility, b. To assist medical decision maker(s) with: better understanding of current medical conditions; weighing benefits/burdens of medical treatment options; making medical treatment decisions. (Fara Negron) Subjective/Interval History Mr. Ruiz resting with eyes closed. He does not open to call of name but opens his eyes to sternal touch. He has left-sided gaze. Does not attempt to turn head to the right side even with touch of face or shoulder. When approaching them on the left side. He will move his eyes, it appears that he is looking, but without recognition or cognition. He is flaccid on the right side and does not follow commands on the left side. He does withdraw to pain on the left side to touch of foot and pressure on finger nail. He is tolerating feedings via PEG. He remains on a T-Piece with 5-6L O2. Sputum was positive for staph aureus on 09/25/16. Recent labs show leukocytopenia with elevated neutrophils as well as hypernatremia. Last CXR 09/25 showed bibasilar consolidation, increased from prior study. Gisel, his [id number], comes to see him daily and is providing his and family with updates. (Fara Negron) Advance Directives Living Will: Never completed Health Care Surrogate: Never completed Durable Power of Hearing Care Practitioner: Never completed (Fara Negron) Advance Directive Specifics Documented care wishes: Full CODE STATUS (Fara Negron) Objective Vital Signs Date Time Temp Pulse Resp B/P Pulse Ox O2 Delivery O2 Flow Rate FiO2 10/01/16 12:11 98.1 75 20 121/75 96 10/01/16 09:10 86 10/01/16 08:09 98.6 85 18 145/81 97 10/01/16 04:00 98.0 91 20 146/86 96 10/01/16 00:00 98.2 80 20 145/83 96 09/30/16 20:00 T-Piece 6.00 28 09/30/16 20:00 86 09/30/16 20:00 97.7 86 20 140/91 96 09/30/16 18:08 96 T-piece 6.00 28 09/30/16 16:00 97.4 81 18 126/73 96 Intake & Output 10/01/16 10/01/16 07:00 19:00 Intake Total 1744 ml Balance 1744 ml Intake Oral 0 ml Tube Feeding 1344 ml Other 400 ml # Voids 4 # Bowel Movements 0 Physical Exam CONSTITUTIONAL/GENERAL: This is an adequately nourished patient, in no apparent distress. With global aphasia TUBES/LINES/DRAINS: T-Piece, [place], central line,PEG SKIN: No jaundice, rashes, or lesions. Well healed suture lines to this skull, post ICP line No wounds seen anteriorly. Skin temperature appropriate. Not diaphoretic. HEAD: Atraumatic. Normocephalic. EYES: Pupils equal and round , reactive, Not tracking, ENT: Able to adequately assess hearing. Mouth/ Throat without visible erythema , exudates, masses, or lesions. NECK: T tube in place CARDIOVASCULAR: Regular rate and rhythm without murmurs, gallops, or rubs. No JVD. Peripheral pulses symmetric. RESPIRATORY/CHEST: Tpiece at 5 L, clear anterior, posterior diminished mid to base, Symmetric, unlabored respirations. GASTROINTESTINAL: Abdomen soft, non-tender, nondistended. No hepato-splenomegaly , or palpable masses. No guarding. Bowel sounds present. GENITOURINARY: Without palpable bladder distension. Urinary catheter in place. MUSCULOSKELETAL: Extremities without clubbing, cyanosis, or edema. No joint tenderness or effusion noted. No calf tenderness. No mottling or clubbing. LYMPHATICS: No palpable cervical or supraclavicular adenopathy. NEUROLOGICAL: Will open eyes to touch, does not track with eyes. Spontaneous movement of left upper and lower extremities. No evidence of meaningful movement PSYCHIATRIC: Unable to assess (Fara Negron) Diagnostic Tests Laboratory Laboratory Tests Test 09/29/16 09/30/16 07:02 06:48 Sodium Level 150 MEQ/L 151 MEQ/L (136-145) (136-145) Potassium Level 3.8 MEQ/L 3.7 MEQ/L (3.5-5.1) (3.5-5.1) Chloride Level 115 MEQ/L 114 MEQ/L (98-107) (98-107) Carbon Dioxide Level 26.5 MEQ/L 27.8 MEQ/L (21.0-32.0) (21.0-32.0) Anion Gap 9 MEQ/L (5-15) 9 MEQ/L (5-15) Blood Urea Nitrogen 30 MG/DL (7-18) 31 MG/DL (7-18) Creatinine 0.83 MG/DL 0.78 MG/DL (0.60-1.30) (0.60-1.30) Estimat Glomerular Filtration 94 ML/MIN (>89) 101 ML/MIN Rate (>89) Random Glucose 173 MG/DL 188 MG/DL (74-106) (74-106) Hemoglobin A1c 5.0 % (4.3-6.0) Calcium Level 9.3 MG/DL 9.2 MG/DL (8.5-10.1) (8.5-10.1) Magnesium Level 2.4 MG/DL 2.4 MG/DL (1.5-2.5) (1.5-2.5) White Blood Count 2.5 TH/MM3 (4.0-11.0) Red Blood Count 3.54 MIL/MM3 (4.50-5.90) Hemoglobin 11.3 GM/DL (13.0-17.0) Hematocrit 33.4 % (39.0-51.0) Mean Corpuscular Volume 94.3 FL (80.0-100.0) Mean Corpuscular Hemoglobin 31.9 PG (27.0-34.0) Mean Corpuscular Hemoglobin 33.8 % Concent (32.0-36.0) Red Cell Distribution Width 12.6 % (11.6-17.2) Platelet Count 162 TH/MM3 (150-450) Mean Platelet Volume 11.7 FL (7.0-11.0) Neutrophils (%) (Auto) 41.2 % (16.0-70.0) Lymphocytes (%) (Auto) 30.7 % (9.0-44.0) Monocytes (%) (Auto) 16.4 % (0.0-8.0) Eosinophils (%) (Auto) 10.6 % (0.0-4.0) Basophils (%) (Auto) 1.1 % (0.0-2.0) Neutrophils # (Auto) 1.0 TH/MM3 (1.8-7.7) Lymphocytes # (Auto) 0.8 TH/MM3 (1.0-4.8) Monocytes # (Auto) 0.4 TH/MM3 (0-0.9) Eosinophils # (Auto) 0.3 TH/MM3 (0-0.4) Basophils # (Auto) 0.0 TH/MM3 (0-0.2) CBC Comment DIFF FINAL Differential Comment (Fara Negron) Result Diagram: 09/30/16 0648 09/30/16 0648 Microbiology 09/25/16sputum culturestaph aureus Procedures PEG 09/19/16 (Fara Negron) Assessment and Plan Disease Oriented Problem List: (1) Stroke, hemorrhagic (2) Global aphasia Comment: Unable to assess level of cognition. Not following commands. (3) Respiratory failure Comment: Now on a T piece with 5 L./ 28% (4) Hypertension Comment: 1. 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 Has been contacted via [employer] (now [employer]) with help of her sister Gisel. Family has unrealistic expectations of his long-term outcome. . . Important Contacts Jodie García, , (lives in [place]) - Haritha Ruiz [phone] - pt's daughter, living in [place]. Boni Ruiz, son, Lives in [place] - [phone] Gisel Salgado, (Mother's sister), Lives in [place]. . Prognosis Guarded - At this point, remains on T-Piece w 5L, feeding tube, While he will open his eyes and have spontaneous movement of L upper and lower extremities, he remains with global aphasia. Ability for rehab is limited to meaningful existence is unlikely. . Code Status: Full Code Plan Decision Maker: [place] Statues indicate in the absence of a written HCS, decision making falls to his who lives in [facility]. She has agreed to participate in decision making. Code Status: Full code Family Discussion: Last discussion was with Haritha. His daughter. She feels she is getting mixed messages from the health care team. I have requested neuropsych consult to clarify long-range outcome and assist the family in being able to make better decisions for his long-term care. Once obtained, will meet with Gisel and his via face time. Symptoms: Dyspnea, dysphagia, debility, pain Palliative care phone number provided - will follow during hospital stay. . (Fara Negron) Collaborating MD Comments Chart reviewed. Case discussed with palliative care FINISH REPAIRER. Above FINISH REPAIRER note reviewed and I concur. . (Niranjan Garza MD) Fara Negron Oct 01, 2016 14:20 Niranjan Garza MD Oct 08, 2016 12:32
[2016-10-02] VITALS (10 sets, daily range): BP systolic 121–138; BP diastolic 72–83; PULSE 75–82; RESP 16–18; TEMP 97.3–98.5; O2SAT 95–98
[2016-10-02] MEDS: hydrALAZINE HCL 100 MG TAB PO SCH ×2 (01:06→05:40)
[2016-10-02] MEDS: CHLORHEXIDINE GLUCONATE 2 % 1 PACK (2 CLOTHS) TOP SCH (04:00)
[2016-10-02] MEDS: FREE WATER G-TUBE SCH ×3 (04:00→20:00)
[2016-10-02] MEDS: INSULIN ASPART SUPPLEMENTAL SCALE SQ SCH (05:42)
[2016-10-02 08:25] LABS: BICARBONATE 30.2 MEQ/L (21.0-32.0); MAGNESIUM 2.5 MG/DL (1.5-2.5); POTASSIUM 3.6 MEQ/L (3.5-5.1)
[2016-10-02] MEDS: SODIUM CHLORIDE 0.9% FLUSH 5 ML FLUSH IVF SCH (09:00)
[2016-10-02] MEDS: DOCUSATE SODIUM 100 MG CAP PO SCH (09:00)
[2016-10-02] MEDS: BISACODYL 10 MG SUPP RECTAL SCH (09:00)
[2016-10-02] MEDS: METOPROLOL TARTRATE 50 MG TAB PO SCH (09:11)
[2016-10-02] MEDS: LISINOPRIL 20 MG TAB PO SCH (09:11)
[2016-10-02] MEDS: FAMOTIDINE 20 MG TAB NG SCH ×2 (09:11→22:37)
[2016-10-02] MEDS: cloNIDine HCL 0.3 MG TAB PO SCH (09:11)
[2016-10-02] MEDS: LEVOFLOXACIN 750 MG TAB G-TUBE SCH (09:11)
[2016-10-02] MEDS: SODIUM CHLORIDE 0.9% FLUSH 5 ML FLUSH IV FLUSH SCH ×2 (09:11→22:37)
[2016-10-02] MEDS: NEOMYCIN/POLYMYXIN/BACITRACIN OINT 15 GM TUBE TOPICAL SCH ×2 (09:12→22:38)
[2016-10-02] MEDS: CHLORHEXIDINE 0.12% (ORAL KIT) 15 ML CUP MT SCH ×2 (09:12→20:00)
[2016-10-02] MEDS: POLYETHYLENE GLYCOL 17 GM PKG PO SCH (09:12)
[2016-10-02] MEDS: ARTIFICIAL TEARS OPTH SOLN 15 ML BTL EACH EYE SCH ×3 (09:12→17:47)
[2016-10-02] MEDS: BENEPROTEIN POWDER 1 PACK G-TUBE SCH ×3 (09:12→17:47)
[2016-10-02] MEDS: LACTULOSE SYRUP 20 GM/30 ML CUP PO SCH (09:12)
--- NOTE | 2016-10-02 10:41 | HHI.PR ---
Subjective Remarks Follow-up diarrhea. No stools for the last 2 days discussed with RN patient with loose stools when given all stool medicines. We will DC all except senna and MiraLAX. Minimal white trach secretions Objective Vitals Vital Signs Date Time Temp Pulse Resp B/P Pulse Ox O2 Delivery O2 Flow Rate FiO2 10/02/16 09:52 78 10/02/16 09:22 T-Piece 6.00 28 10/02/16 04:00 T-Piece 28 10/02/16 04:00 98.2 78 18 133/75 95 10/02/16 00:00 T-Piece 28 10/02/16 00:00 98.0 77 18 121/72 96 10/01/16 20:43 87 10/01/16 20:00 T-Piece 10/01/16 20:00 97.4 89 18 132/81 95 10/01/16 16:34 98.6 85 20 131/77 95 10/01/16 13:55 96 T-piece 10/01/16 12:11 98.1 75 20 121/75 96 I/O 10/01/16 10/01/16 10/01/16 10/02/16 10/02/16 10/02/16 07:00 15:00 23:00 07:00 15:00 23:00 Intake Total 872 ml 1761 ml 608 ml 549 ml Output Total 475 ml Balance 872 ml 1761 ml 608 ml 74 ml Intake Oral 0 ml 0 ml 0 ml IV Total 2 ml Tube Feeding 672 ml 1359 ml 458 ml 389 ml Tube Irrigant 400 ml 50 ml 60 ml Other 200 ml 100 ml 100 ml Output Urine Total 475 ml # Voids 2 3 0 # Bowel Movements 0 0 0 1 Result Diagram: 09/30/16 0648 10/02/16 0734 Imaging Last Impressions Chest X-Ray 09/25/16 0000 Signed Impressions: Service Date/Time: September 16:19 - CONCLUSION: 1. There is basilar airspace disease. Differential diagnosis includes atelectasis and pneumonia. Findings slightly increased on the left since September 22. No pneumothorax. Bishop Fulton MD Gastrostomy Tube Placement 09/19/16 0000 Signed Impressions: Service Date/Time: Monday, September 19, 2016 16:01 - CONCLUSION: Uncomplicated gastrostomy tube placement as above. Chaitanya Rondon MD Head CT 09/17/16 0600 Signed Impressions: Service Date/Time: Saturday, September 17, 2016 04:14 - CONCLUSION: 1. Slightly evolving left basal ganglia hemorrhage with surrounding edema and mass effect similar to September 08. Right frontal ventriculostomy tube unchanged. Right ventricular size relatively stable. Bishop Fulton MD Head Magnetic Resonance Angiography 08/27/16 0000 Signed Impressions: Service Date/Time: Saturday, August 27, 2016 16:49 - CONCLUSION: Negative MRA of the brain. Vargas Freitas MD FACR Brain MRI 08/27/16 0000 Signed Impressions: Service Date/Time: Saturday, August 27, 2016 16:49 - CONCLUSION: 1. Large thalamic hemorrhage as described above. Extensive periventricular white matter changes are noted. There is compression of the third ventricle. Ventriculostomy is seen in the right lateral ventricle. 2. Hemorrhage does extend down the white matter tracts to the level of the right cerebral peduncle. Vargas Freitas MD FACR Objective Remarks GENERAL: Not in distress, nonverbal. EAR: Left pinna inflamed which is improving EYES: No scleral icterus. No injection or drainage. NECK: Supple, trachea midline. No JVD CARDIOVASCULAR: Regular rate and rhythm without murmurs, gallops, or rubs. RESPIRATORY: Improved Coarse breath sounds GASTROINTESTINAL: Abdomen soft, non-tender, nondistended. MUSCULOSKELETAL: No cyanosis, or edema. Does not follow any commands. Opens eyes with noxious stimulus, Not tracking. Positive for right hemiparesis. Left preferential gaze Procedures PEG A/P Problem List: (1) ICH (intracerebral hemorrhage) ICD Code: I61.9 Status: Acute (2) Hypertensive emergency ICD Code: I16.1 Status: Resolved (3) Hypokalemia ICD Code: E87.6 Status: Resolved (4) Respiratory failure ICD Code: J96.90 Status: Chronic Assessment and Plan 61-year-old male with left basal ganglia hemorrhage, intraventricular extension test post placement of ventriculostomy drain. Left basal ganglia intraparenchymal hemorrhage with encephalopathy -s/p Right frontal ventriculostomy placement 08/26, CT head revealed left basal ganglia intraparenchymal hemorrhage 3.42 cm with extension to lateral ventricle , midline shift 5 mm to the right. Goal systolic blood pressure less than 140, . EEG 08/30: generalized slowing, no seizure activity. Neurosurgery continues to manage. Drain removed 09/17/16. Continue blood pressure control. Hypertensive emergency -Initially managed with Cardizem drip. Resolved. Continue Norvasc 10 mg daily, hydralazine to 100 mg every 6 hours, lisinopril 20 po bid, lopressor 100 bid. catapres 0.3 bid. Acute hypoxic and hypercarbic respiratory failure- secondary to Staphylococcus pneumonia, tracheostomy in place, continue T piece. Pulmonary following, chest x-ray from 09/22/16 shows improvement, still shows atelectasis. Continue pulmonary toilet Fever secondary to pneumonia, atelectasis or maybe central. Chest x-ray image interpreted by me with bibasilar airspace disease. Recurrent fever with loose stools. Improved fever and diarrhea. No leukocytosis.. Continue Levaquin till October 06 and nebulization. Follow cultures and sputum with MSSA. Left pinna cellulitis. Improving. Topical antibiotic patient already on Levaquin. Wound care. Pressure offloading Escherichia coli UTI-status post treatment Failure to thrive, protein energy malnutrition- status post PEG tube placement by IR 09/19/16, continue Glucerna, tube feeds at goal. Consult physical therapy, out of bed. Hyperglycemia of Critical Illness-continue sliding scale with Accu-Cheks. Stable discontinue sliding scale Hypernatremia and hypokalemia. Increase free water to 400 mL every 6 hours. Repeat BMP and magnesium improved Prophylaxis - GI - Protonix - DVT - SCD Discharge Planning SSI pending, discharge to rehabilitation once placement available. Problem Qualifiers (1) ICH (intracerebral hemorrhage): Qualified Code: I61.0 - Nontraumatic subcortical hemorrhage of left cerebral hemisphere (2) Respiratory failure: Marin Ibarra MD Oct 02, 2016 10:41
[2016-10-02] MEDS: hydrALAZINE HCL 100 MG TAB G-TUBE SCH ×2 (12:19→17:46)
[2016-10-02] MEDS: ENOXAPARIN SODIUM 40 MG/0.4 ML SYRINGE SQ SCH (12:20)
[2016-10-02] MEDS: SENNOSIDES 8.6 MG TAB GT SCH (17:46)
--- NOTE | 2016-10-02 17:55 | HHI.PR ---
Subjective Remarks Awake .Stable On a T Bar 28 %.Needs suctioning. No response to commands. Tries to move right hand Objective Vital Signs Date Time Temp Pulse Resp B/P Pulse Ox O2 Delivery O2 Flow Rate FiO2 10/02/16 11:42 96 T-piece 5.00 28 10/02/16 09:52 78 10/02/16 09:22 T-Piece 6.00 28 10/02/16 08:08 98.5 82 16 137/81 96 10/02/16 04:00 T-Piece 28 10/02/16 04:00 98.2 78 18 133/75 95 10/02/16 00:00 T-Piece 28 10/02/16 00:00 98.0 77 18 121/72 96 10/01/16 20:43 87 10/01/16 20:00 T-Piece 28 10/01/16 20:00 97.4 89 18 132/81 95 I/O 10/01/16 10/01/16 10/01/16 10/02/16 10/02/16 10/02/16 07:00 15:00 23:00 07:00 15:00 23:00 Intake Total 872 ml 1761 ml 608 ml 549 ml 790 ml Output Total 475 ml Balance 872 ml 1761 ml 608 ml 74 ml 790 ml Intake Oral 0 ml 0 ml 0 ml IV Total 2 ml 2 ml Tube Feeding 672 ml 1359 ml 458 ml 389 ml 388 ml Tube Irrigant 400 ml 50 ml 60 ml 400 ml Other 200 ml 100 ml 100 ml Output Urine Total 475 ml # Voids 2 3 0 # Bowel Movements 0 0 0 1 Result Diagram: 09/30/16 0648 10/02/16 0734 Objective Remarks This is an averagely built middle-aged man who is poorly responsive on a trach collar. He has weakness of his right extremities. HEENT: Head normocephalic. Pupils reactive. Throat is clear. NECK: Supple without venous distension. No thyromegaly or lymphadenopathy. CHEST: Decreased breath sounds at the bases.Occ Wheeze and no crackles. HEART: The heart sounds are regular, S1-S2. No murmur. No S3. ABDOMEN: The abdomen is soft, nontender. Bowel sounds are faint. No organomegaly. EXTREMITIES: Weakness and muscle wasting of the right extremities. The patient does move left extremities , .Skin was dry . RECTAL: Exam is deferred. Assessment and Plan Assessment and Plan IMPRESSION 1. Status post left basal ganglia intraparenchymal hemorrhage with the right frontal ventriculostomy placement. 2. Acute respiratory failure resolved. 3. Bibasilar atelectasis and pneumonia. 4. History of uncontrolled hypertension. 5. Right hemiplegia. Plan : 1. Cont on T collar 28 %. 2. Trach suction and lavage prn. 3. Nebs bid , duoneb. 4. Levaquin for 5 days. 5. Tube feeds at 60 CC. 6. PT evaluation. 7. Chest X ray on Thursday Lynne White MD Oct 02, 2016 17:55
[2016-10-02] MEDS: POLYETHYLENE GLYCOL 17 GM PKG GT SCH (22:36)
[2016-10-02] MEDS: cloNIDine HCL 0.3 MG TAB G-TUBE SCH (22:36)
[2016-10-02] MEDS: LISINOPRIL 20 MG TAB G-TUBE SCH (22:37)
[2016-10-02] MEDS: METOPROLOL TARTRATE 50 MG TAB GT SCH (22:37)
[2016-10-03] VITALS (9 sets, daily range): BP systolic 121–135; BP diastolic 68–78; PULSE 70–82; RESP 18; TEMP 96.8–98.2; O2SAT 95–97
[2016-10-03] MEDS: hydrALAZINE HCL 100 MG TAB G-TUBE SCH ×4 (00:54→17:57)
[2016-10-03] MEDS: FREE WATER G-TUBE SCH ×3 (04:00→19:37)
[2016-10-03] MEDS: SENNOSIDES 8.6 MG TAB GT SCH ×2 (06:23→17:57)
[2016-10-03] MEDS: FAMOTIDINE 20 MG TAB NG SCH ×2 (07:54→20:51)
[2016-10-03] MEDS: LISINOPRIL 20 MG TAB G-TUBE SCH ×2 (07:54→19:37)
[2016-10-03] MEDS: LEVOFLOXACIN 750 MG TAB G-TUBE SCH (07:54)
[2016-10-03] MEDS: METOPROLOL TARTRATE 50 MG TAB GT SCH ×2 (07:55→20:51)
[2016-10-03] MEDS: SODIUM CHLORIDE 0.9% FLUSH 5 ML FLUSH IVF SCH (07:55)
[2016-10-03] MEDS: SODIUM CHLORIDE 0.9% FLUSH 5 ML FLUSH IV FLUSH SCH ×2 (07:55→20:51)
[2016-10-03] MEDS: POLYETHYLENE GLYCOL 17 GM PKG GT SCH ×2 (07:55→20:51)
[2016-10-03] MEDS: BENEPROTEIN POWDER 1 PACK G-TUBE SCH ×3 (07:56→17:57)
[2016-10-03] MEDS: ARTIFICIAL TEARS OPTH SOLN 15 ML BTL EACH EYE SCH ×3 (07:56→17:57)
[2016-10-03] MEDS: NEOMYCIN/POLYMYXIN/BACITRACIN OINT 15 GM TUBE TOPICAL SCH ×2 (07:56→20:52)
[2016-10-03] MEDS: cloNIDine HCL 0.3 MG TAB G-TUBE SCH ×2 (10:00→20:55)
[2016-10-03 11:24] LABS: AUTOMATED NEUTROPHIL # 2.5 TH/MM3 (1.8-7.7); BASOPHIL % 0.8 % (0.0-2.0); EOSINOPHIL # 0.3 TH/MM3 (0-0.4); EOSINOPHIL % 6.7 % (0.0-4.0); HEMATOCRIT 34.4 % (39.0-51.0); HEMO FLAGS DIFF FINAL; LYMPH % 21.7 % (9.0-44.0); LYMPHOCYTE # 0.9 TH/MM3 (1.0-4.8); MEAN CELL VOLUME 92.4 FL (80.0-100.0); MEAN CORPUSCULAR HEMOGLOBIN 31.1 PG (27.0-34.0); MEAN CORPUSCULAR HGB CONC 33.6 % (32.0-36.0); MONO % 12.5 % (0.0-8.0); NEUT % 58.3 % (16.0-70.0); PLATELET COUNT 168 TH/MM3 (150-450); RED BLOOD COUNT 3.72 MIL/MM3 (4.50-5.90); RED CELL DISTRIBUTION WIDTH 13.1 % (11.6-17.2); WHITE BLOOD COUNT 4.2 TH/MM3 (4.0-11.0)
--- NOTE | 2016-10-03 12:59 | HHI.PR ---
Subjective Remarks .Stable On a T Bar 28 %. less secretions. No response to commands. Tries to move left hand Objective Vital Signs Date Time Temp Pulse Resp B/P Pulse Ox O2 Delivery O2 Flow Rate FiO2 10/03/16 08:07 96.8 82 18 135/78 96 10/03/16 07:18 96 T-piece 28 10/03/16 04:00 98.0 80 18 125/68 95 10/03/16 00:00 97.8 70 18 121/71 97 10/03/16 00:00 T-Piece 28 10/02/16 22:10 97 T-piece 6.00 28 10/02/16 20:20 79 10/02/16 20:00 T-Piece 28 10/02/16 20:00 97.3 79 18 138/83 98 10/02/16 16:07 97.8 78 16 130/76 95 I/O 10/02/16 10/02/16 10/02/16 10/03/16 10/03/16 10/03/16 07:00 15:00 23:00 07:00 15:00 23:00 Intake Total 549 ml 790 ml 726 ml 471 ml Output Total 475 ml 1000 ml 0 ml 850 ml Balance 74 ml -210 ml 726 ml -379 ml Intake Oral 0 ml 0 ml 0 ml 0 ml IV Total 2 ml Tube Feeding 389 ml 388 ml 476 ml 321 ml Tube Irrigant 60 ml 400 ml 50 ml 50 ml Other 100 ml 200 ml 100 ml Output Urine Total 475 ml 1000 ml 0 ml 850 ml # Bowel Movements 1 2 0 0 Result Diagram: 10/03/16 1103 10/02/16 0734 Objective Remarks This is an averagely built middle-aged man who is poorly responsive on a trach collar. He has weakness of his right extremities. HEENT: Head normocephalic. Pupils reactive. Throat is clear. NECK: Supple without venous distension. No thyromegaly or lymphadenopathy. CHEST: Decreased breath sounds at the bases and no crackles. HEART: The heart sounds are regular, S1-S2. No murmur. No S3. ABDOMEN: The abdomen is soft, nontender. Bowel sounds are active. No organomegaly. EXTREMITIES: Weakness and muscle wasting of the right extremities. The patient does move left extremities , .Skin was dry . RECTAL: Exam is deferred. Assessment and Plan Assessment and Plan IMPRESSION 1. Status post left basal ganglia intraparenchymal hemorrhage with the right frontal ventriculostomy placement. 2. Acute respiratory failure resolved. 3. Bibasilar atelectasis and pneumonia. 4. History of uncontrolled hypertension. 5. Right hemiplegia. Plan : 1. Cont on T collar 28 %. 2. Trach suction and lavage prn. 3. Nebs bid , duoneb. 4. D/C antibiotics 5. Tube feeds at 60 CC. 6. PT evaluation. 7. Chest X ray on Thursday Lynne White MD Oct 03, 2016 12:59
[2016-10-03] MEDS: ENOXAPARIN SODIUM 40 MG/0.4 ML SYRINGE SQ SCH (13:00)
[2016-10-04] VITALS (8 sets, daily range): BP systolic 118–150; BP diastolic 72–89; PULSE 68–86; RESP 16–21; TEMP 97.3–98.2; O2SAT 95–100
--- NOTE | 2016-10-04 08:41 | HHI.PR ---
Subjective Remarks Late entry, this progress note is for 10/03/16 No overnight events, no change in mental status. Having diarrhea. Loose stools. Objective Vitals Vital Signs Date Time Temp Pulse Resp B/P Pulse Ox O2 Delivery O2 Flow Rate FiO2 10/04/16 08:21 97.7 77 21 127/74 95 10/04/16 04:00 T-Piece 6.00 28 10/04/16 04:00 97.5 73 16 145/86 95 10/04/16 00:00 T-Piece 6.00 28 10/04/16 00:00 97.6 68 18 122/75 97 10/03/16 20:00 77 10/03/16 20:00 T-Piece 6.00 28 10/03/16 20:00 98.2 75 18 127/77 96 10/03/16 17:51 96 T-piece 6.00 10/03/16 16:08 96.9 75 18 128/70 96 10/03/16 12:08 96.8 78 18 127/76 96 I/O 10/03/16 10/03/16 10/03/16 10/04/16 10/04/16 10/04/16 07:00 15:00 23:00 07:00 15:00 23:00 Intake Total 471 ml 480 ml 373 ml 339 ml Output Total 850 ml 600 ml 200 ml 150 ml Balance -379 ml -120 ml 173 ml 189 ml Intake Oral 0 ml 0 ml Tube Feeding 321 ml 480 ml 173 ml 219 ml Tube Irrigant 50 ml Other 100 ml 200 ml 120 ml Output Urine Total 850 ml 600 ml 200 ml 150 ml # Bowel Movements 0 1 Result Diagram: 10/03/16 1103 10/02/16 0734 Objective Remarks GENERAL: Not in distress, nonverbal. EYES: No scleral icterus. No injection or drainage. NECK: Supple, trachea midline. No JVD CARDIOVASCULAR: Regular rate and rhythm without murmurs, gallops, or rubs. RESPIRATORY: Breath sounds equal bilaterally. No accessory muscle use. Poor effort. GASTROINTESTINAL: Abdomen soft, non-tender, nondistended. MUSCULOSKELETAL: No cyanosis, or edema. Awake, not oriented, does not follow any commands. Opens eyes with noxious stimulus, Not tracking. Positive for right hemiparesis. Procedures PEG A/P Problem List: (1) ICH (intracerebral hemorrhage) ICD Code: I61.9 Status: Acute (2) Hypertensive emergency ICD Code: I16.1 Status: Resolved (3) Hypokalemia ICD Code: E87.6 Status: Resolved (4) Respiratory failure ICD Code: J96.90 Status: Chronic Assessment and Plan 61-year-old male with left basal ganglia hemorrhage, intraventricular extension test post placement of ventriculostomy drain. Left basal ganglia intraparenchymal hemorrhage with encephalopathy -s/p Right frontal ventriculostomy placement 08/26, CT head revealed left basal ganglia intraparenchymal hemorrhage 3.42 cm with extension to lateral ventricle , midline shift 5 mm to the right. Goal systolic blood pressure less than 140, . EEG 08/30: generalized slowing, no seizure activity. Neurosurgery continues to manage. Drain removed 09/17/16. Continue blood pressure control. Hypertensive emergency -Initially managed with Cardizem drip. Resolved. Continue Norvasc 10 mg daily, hydralazine to 100 mg every 6 hours, lisinopril 20 po bid, lopressor 100 bid. catapres 0.3 bid. Acute hypoxic and hypercarbic respiratory failure- secondary to Staphylococcus pneumonia, tracheostomy in place, continue T piece. Pulmonary following, chest x-ray from 09/22/16 shows improvement, still shows atelectasis. Continue pulmonary toilet, chest x-ray on Thursday, continue Levaquin for 5 days. Pulmonary following. Fever secondary to pneumonia, atelectasis or maybe central. Chest x-ray image interpreted by me with bibasilar airspace disease. Recurrent fever with loose stools. Improved fever and diarrhea. No leukocytosis as above, Levaquin till October 06 and nebulization. Follow-up cultures. Left pinna cellulitis. Improving. Topical antibiotic patient already on Levaquin. Wound care. Pressure offloading Escherichia coli UTI-status post treatment Failure to thrive, protein energy malnutrition- status post PEG tube placement by IR 09/19/16, continue Glucerna, tube feeds at goal. Consult physical therapy, out of bed. Hyperglycemia of Critical Illness-continue sliding scale with Accu-Cheks. Stable discontinue sliding scale Hypernatremia and hypokalemia. Increase free water to 400 mL every 6 hours. Repeat BMP and magnesium improved Prophylaxis - GI - Protonix - DVT - SCD Discharge Planning SSI pending, discharge to rehabilitation once placement available. Problem Qualifiers (1) ICH (intracerebral hemorrhage): Qualified Code: I61.0 - Nontraumatic subcortical hemorrhage of left cerebral hemisphere (2) Respiratory failure: Julian Mcmanus MD Oct 04, 2016 08:40
[2016-10-04] MEDS: LEVOFLOXACIN 750 MG TAB G-TUBE SCH (08:58)
[2016-10-04] MEDS: FAMOTIDINE 20 MG TAB NG SCH ×2 (08:58→21:05)
[2016-10-04] MEDS: cloNIDine HCL 0.3 MG TAB G-TUBE SCH ×2 (08:58→21:05)
[2016-10-04] MEDS: POLYETHYLENE GLYCOL 17 GM PKG GT SCH ×2 (08:59→21:05)
[2016-10-04] MEDS: LISINOPRIL 20 MG TAB G-TUBE SCH ×2 (08:59→20:02)
[2016-10-04] MEDS: METOPROLOL TARTRATE 50 MG TAB GT SCH ×2 (08:59→21:05)
[2016-10-04] MEDS: SODIUM CHLORIDE 0.9% FLUSH 5 ML FLUSH IV FLUSH SCH ×2 (09:00→21:05)
[2016-10-04] MEDS: SODIUM CHLORIDE 0.9% FLUSH 5 ML FLUSH IVF SCH (09:00)
[2016-10-04] MEDS: BENEPROTEIN POWDER 1 PACK G-TUBE SCH ×3 (09:00→16:58)
[2016-10-04] MEDS: ARTIFICIAL TEARS OPTH SOLN 15 ML BTL EACH EYE SCH ×3 (09:01→16:58)
[2016-10-04] MEDS: NEOMYCIN/POLYMYXIN/BACITRACIN OINT 15 GM TUBE TOPICAL SCH ×2 (09:01→21:05)
--- NOTE | 2016-10-04 09:12 | HHI.PR ---
Subjective Remarks Follow-up for pneumonia Appears comfortable, afebrile, no change in mental status. Objective Vitals Vital Signs Date Time Temp Pulse Resp B/P Pulse Ox O2 Delivery O2 Flow Rate FiO2 10/04/16 08:21 97.7 77 21 127/74 95 10/04/16 04:00 T-Piece 6.00 28 10/04/16 04:00 97.5 73 16 145/86 95 10/04/16 00:00 T-Piece 6.00 28 10/04/16 00:00 97.6 68 18 122/75 97 10/03/16 20:00 77 10/03/16 20:00 T-Piece 6.00 28 10/03/16 20:00 98.2 75 18 127/77 96 10/03/16 17:51 96 T-piece 6.00 10/03/16 16:08 96.9 75 18 128/70 96 10/03/16 12:08 96.8 78 18 127/76 96 I/O 10/03/16 10/03/16 10/03/16 10/04/16 10/04/16 10/04/16 07:00 15:00 23:00 07:00 15:00 23:00 Intake Total 471 ml 480 ml 373 ml 339 ml Output Total 850 ml 600 ml 200 ml 150 ml Balance -379 ml -120 ml 173 ml 189 ml Intake Oral 0 ml 0 ml Tube Feeding 321 ml 480 ml 173 ml 219 ml Tube Irrigant 50 ml Other 100 ml 200 ml 120 ml Output Urine Total 850 ml 600 ml 200 ml 150 ml # Bowel Movements 0 1 Result Diagram: 10/03/16 1103 10/02/16 0734 Objective Remarks GENERAL: Not in distress, nonverbal. EYES: No scleral icterus. No injection or drainage. NECK: Supple, trachea midline. No JVD CARDIOVASCULAR: Regular rate and rhythm without murmurs, gallops, or rubs. RESPIRATORY: Breath sounds equal bilaterally. No accessory muscle use. Poor effort. GASTROINTESTINAL: Abdomen soft, non-tender, nondistended. MUSCULOSKELETAL: No cyanosis, or edema. Awake, not oriented, does not follow any commands. Opens eyes with noxious stimulus, Not tracking. Positive for right hemiparesis. Procedures PEG A/P Problem List: (1) ICH (intracerebral hemorrhage) ICD Code: I61.9 Status: Acute (2) Hypertensive emergency ICD Code: I16.1 Status: Resolved (3) Hypokalemia ICD Code: E87.6 Status: Resolved (4) Respiratory failure ICD Code: J96.90 Status: Chronic Assessment and Plan 61-year-old male with left basal ganglia hemorrhage, intraventricular extension test post placement of ventriculostomy drain. Left basal ganglia intraparenchymal hemorrhage with encephalopathy -s/p Right frontal ventriculostomy placement 08/26, CT head revealed left basal ganglia intraparenchymal hemorrhage 3.42 cm with extension to lateral ventricle , midline shift 5 mm to the right. Goal systolic blood pressure less than 140, . EEG 08/30: generalized slowing, no seizure activity. Neurosurgery continues to manage. Drain removed 09/17/16. Continue blood pressure control. Hypertensive emergency -Initially managed with Cardizem drip. Resolved. Continue Norvasc 10 mg daily, hydralazine to 100 mg every 6 hours, lisinopril 20 po bid, lopressor 100 bid. catapres 0.3 bid. Acute hypoxic and hypercarbic respiratory failure- secondary to Staphylococcus pneumonia, tracheostomy in place, continue T piece. Pulmonary following, chest x-ray from 09/22/16 shows improvement, still shows atelectasis. Continue pulmonary toilet, repeat chest x-ray on Thursday, continue Levaquin until October 06. Pulmonary following. Fever secondary to pneumonia, atelectasis or maybe central. Chest x-ray image interpreted by me with bibasilar airspace disease. Recurrent fever with loose stools. Improved fever and diarrhea. No leukocytosis as above, Levaquin till October 06 and nebulization. Follow-up cultures. Left pinna cellulitis. Improving. Topical antibiotic patient already on Levaquin. Wound care. Pressure offloading Escherichia coli UTI-status post treatment Failure to thrive, protein energy malnutrition- status post PEG tube placement by IR 09/19/16, continue Glucerna, tube feeds at goal. Consult physical therapy, out of bed. Hyperglycemia of Critical Illness-continue sliding scale with Accu-Cheks. Stable discontinue sliding scale Hypernatremia and hypokalemia. Increase free water to 400 mL every 6 hours. Repeat BMP and magnesium improved Prophylaxis - GI - Protonix - DVT - SCD Discharge Planning SSI pending, discharge to rehabilitation once placement available. Problem Qualifiers (1) ICH (intracerebral hemorrhage): Qualified Code: I61.0 - Nontraumatic subcortical hemorrhage of left cerebral hemisphere (2) Respiratory failure: Julian Mcmanus MD Oct 04, 2016 09:12
[2016-10-04] MEDS: FREE WATER G-TUBE SCH ×2 (11:51→20:00)
[2016-10-04] MEDS: hydrALAZINE HCL 100 MG TAB G-TUBE SCH ×2 (11:53→16:37)
[2016-10-04] MEDS: ENOXAPARIN SODIUM 40 MG/0.4 ML SYRINGE SQ SCH (14:38)
[2016-10-04] MEDS: SENNOSIDES 8.6 MG TAB GT SCH (16:58)
[2016-10-05] VITALS (7 sets, daily range): BP systolic 108–128; BP diastolic 60–76; PULSE 72–82; RESP 18–20; TEMP 97.3–98.4; O2SAT 96–99
[2016-10-05] MEDS: hydrALAZINE HCL 100 MG TAB G-TUBE SCH ×4 (00:46→17:29)
[2016-10-05] MEDS: FREE WATER G-TUBE SCH ×3 (04:00→20:00)
[2016-10-05] MEDS: SENNOSIDES 8.6 MG TAB GT SCH ×2 (05:56→17:29)
[2016-10-05] MEDS: POLYETHYLENE GLYCOL 17 GM PKG GT SCH ×2 (09:00→21:07)
[2016-10-05] MEDS: LEVOFLOXACIN 750 MG TAB G-TUBE SCH (09:04)
[2016-10-05] MEDS: METOPROLOL TARTRATE 50 MG TAB GT SCH ×2 (09:04→21:08)
[2016-10-05] MEDS: FAMOTIDINE 20 MG TAB NG SCH ×2 (09:04→21:08)
[2016-10-05] MEDS: NEOMYCIN/POLYMYXIN/BACITRACIN OINT 15 GM TUBE TOPICAL SCH ×2 (09:05→21:16)
[2016-10-05] MEDS: cloNIDine HCL 0.3 MG TAB G-TUBE SCH ×2 (09:05→21:08)
[2016-10-05] MEDS: BENEPROTEIN POWDER 1 PACK G-TUBE SCH ×3 (09:05→17:29)
[2016-10-05] MEDS: ARTIFICIAL TEARS OPTH SOLN 15 ML BTL EACH EYE SCH ×3 (09:05→17:29)
[2016-10-05] MEDS: LISINOPRIL 20 MG TAB G-TUBE SCH ×2 (09:05→21:08)
[2016-10-05] MEDS: SODIUM CHLORIDE 0.9% FLUSH 5 ML FLUSH IV FLUSH SCH ×2 (09:06→21:09)
[2016-10-05] MEDS: SODIUM CHLORIDE 0.9% FLUSH 5 ML FLUSH IVF SCH (09:07)
--- NOTE | 2016-10-05 11:02 | HHI.PR ---
Subjective Remarks runny stools, no overnight events, discussed with RN, no change, mental status stable, Objective Vitals Vital Signs Date Time Temp Pulse Resp B/P Pulse Ox O2 Delivery O2 Flow Rate FiO2 10/05/16 08:21 98.4 81 18 126/70 96 10/05/16 08:00 T-Piece 6.00 28 10/05/16 04:00 98.4 82 20 128/72 99 10/05/16 04:00 T-Piece 6.00 28 10/05/16 00:00 T-Piece 6.00 28 10/05/16 00:00 97.3 72 20 122/73 98 10/04/16 20:21 86 10/04/16 20:00 T-Piece 6.00 28 10/04/16 20:00 97.3 83 20 150/89 97 10/04/16 16:25 97.5 74 20 131/75 100 10/04/16 12:36 96 T-piece 28 10/04/16 12:21 98.2 75 20 118/72 96 I/O 10/04/16 10/04/16 10/04/16 10/05/16 10/05/16 10/05/16 07:00 15:00 23:00 07:00 15:00 23:00 Intake Total 339 ml 798 ml 918 ml Output Total 150 ml 450 ml Balance 189 ml -450 ml 798 ml 918 ml Tube Feeding 219 ml 478 ml 558 ml Other 120 ml 320 ml 360 ml Output Urine Total 150 ml 450 ml # Voids 1 # Bowel Movements 1 Result Diagram: 10/03/16 1103 10/02/16 0734 Objective Remarks GENERAL: Not in distress, nonverbal. EYES: No scleral icterus. No injection or drainage. NECK: Supple, trachea midline. No JVD CARDIOVASCULAR: Regular rate and rhythm without murmurs, gallops, or rubs. RESPIRATORY: Breath sounds equal bilaterally. No accessory muscle use. Poor effort. GASTROINTESTINAL: Abdomen soft, non-tender, nondistended. MUSCULOSKELETAL: No cyanosis, or edema. Awake, not oriented, does not follow any commands. Opens eyes with noxious stimulus, Not tracking. Positive for right hemiparesis. Procedures PEG A/P Problem List: (1) ICH (intracerebral hemorrhage) ICD Code: I61.9 Status: Acute (2) Hypertensive emergency ICD Code: I16.1 Status: Resolved (3) Hypokalemia ICD Code: E87.6 Status: Resolved (4) Respiratory failure ICD Code: J96.90 Status: Chronic Assessment and Plan 61-year-old male with left basal ganglia hemorrhage, intraventricular extension test post placement of ventriculostomy drain. Left basal ganglia intraparenchymal hemorrhage with encephalopathy -s/p Right frontal ventriculostomy placement 08/26, CT head revealed left basal ganglia intraparenchymal hemorrhage 3.42 cm with extension to lateral ventricle , midline shift 5 mm to the right. Goal systolic blood pressure less than 140, . EEG 08/30: generalized slowing, no seizure activity. Neurosurgery continues to manage. Drain removed 09/17/16. Continue blood pressure control. Hypertensive emergency -Initially managed with Cardizem drip. Resolved. Continue Norvasc 10 mg daily, hydralazine to 100 mg every 6 hours, lisinopril 20 po bid, lopressor 100 bid. catapres 0.3 bid. Acute hypoxic and hypercarbic respiratory failure- secondary to Staphylococcus pneumonia, tracheostomy in place, continue T piece. Pulmonary following, chest x-ray from 09/22/16 shows improvement, still shows atelectasis. Continue pulmonary toilet, repeat chest x-ray on Thursday, continue Levaquin until October 06. Pulmonary following. Fever secondary to pneumonia, atelectasis or maybe central. Chest x-ray image interpreted by me with bibasilar airspace disease. Recurrent fever with loose stools. Improved fever and diarrhea. No leukocytosis as above, Levaquin till October 06 and nebulization. Follow-up cultures. Left pinna cellulitis. Improving. Topical antibiotic patient already on Levaquin. Wound care. Pressure offloading Escherichia coli UTI-status post treatment Failure to thrive, protein energy malnutrition- status post PEG tube placement by IR 09/19/16, continue Glucerna, tube feeds at goal. Consult physical therapy, out of bed. Hyperglycemia of Critical Illness-continue sliding scale with Accu-Cheks. Stable discontinue sliding scale Hypernatremia and hypokalemia. Increase free water to 400 mL every 6 hours. Repeat BMP and magnesium improved Prophylaxis - GI - Protonix - DVT - SCD Seen 10/05, no change in management, continue ABx Discharge Planning SSI pending, discharge to rehabilitation once placement available. Problem Qualifiers (1) ICH (intracerebral hemorrhage): Qualified Code: I61.0 - Nontraumatic subcortical hemorrhage of left cerebral hemisphere (2) Respiratory failure: Julian Mcmanus MD Oct 05, 2016 11:02
[2016-10-05] MEDS: ENOXAPARIN SODIUM 40 MG/0.4 ML SYRINGE SQ SCH (14:50)
[2016-10-06] VITALS (8 sets, daily range): BP systolic 126–139; BP diastolic 65–82; PULSE 75–88; RESP 16–22; TEMP 97.6–98.3; O2SAT 91–100
[2016-10-06] MEDS: hydrALAZINE HCL 100 MG TAB G-TUBE SCH ×5 (00:55→23:46)
[2016-10-06] MEDS: FREE WATER G-TUBE SCH ×3 (04:00→20:00)
[2016-10-06] MEDS: SENNOSIDES 8.6 MG TAB GT SCH ×2 (05:22→16:55)
[2016-10-06] MEDS: POLYETHYLENE GLYCOL 17 GM PKG GT SCH ×2 (09:00→20:51)
[2016-10-06] MEDS: SODIUM CHLORIDE 0.9% FLUSH 5 ML FLUSH IVF SCH (09:00)
[2016-10-06] MEDS: LISINOPRIL 20 MG TAB G-TUBE SCH ×2 (10:30→20:53)
[2016-10-06] MEDS: cloNIDine HCL 0.3 MG TAB G-TUBE SCH ×2 (10:30→21:01)
[2016-10-06] MEDS: FAMOTIDINE 20 MG TAB NG SCH ×2 (10:30→20:53)
[2016-10-06] MEDS: LEVOFLOXACIN 750 MG TAB G-TUBE SCH (10:30)
[2016-10-06] MEDS: METOPROLOL TARTRATE 50 MG TAB GT SCH ×2 (10:30→20:53)
[2016-10-06] MEDS: SODIUM CHLORIDE 0.9% FLUSH 5 ML FLUSH IV FLUSH SCH ×2 (10:31→20:53)
[2016-10-06] MEDS: BENEPROTEIN POWDER 1 PACK G-TUBE SCH ×3 (10:31→18:46)
[2016-10-06] MEDS: ARTIFICIAL TEARS OPTH SOLN 15 ML BTL EACH EYE SCH ×3 (10:32→18:46)
[2016-10-06] MEDS: NEOMYCIN/POLYMYXIN/BACITRACIN OINT 15 GM TUBE TOPICAL SCH ×2 (10:32→20:54)
--- NOTE | 2016-10-06 10:57 | HHI.PR ---
Subjective Remarks Follow-up for ICH, diarrhea. Discussed with RN. The patient had 5 loose bowel movements overnight. Recently suctioned. No other acute issues reported. Objective Vitals Vital Signs Date Time Temp Pulse Resp B/P Pulse Ox O2 Delivery O2 Flow Rate FiO2 10/06/16 04:00 97.7 77 18 126/71 97 10/06/16 00:00 98.1 75 18 136/79 99 10/05/16 20:30 T-Piece 6.00 28 10/05/16 20:19 77 10/05/16 20:00 97.4 78 18 127/76 98 10/05/16 20:00 T-piece 28 10/05/16 16:33 98.0 77 20 113/74 96 10/05/16 12:23 98.0 77 20 108/60 98 I/O 10/05/16 10/05/16 10/05/16 10/06/16 10/06/16 10/06/16 07:00 15:00 23:00 07:00 15:00 23:00 Intake Total 918 ml 0 ml 0 ml Balance 918 ml 0 ml 0 ml Intake Oral 0 ml 0 ml Tube Feeding 558 ml Other 360 ml # Voids 3 1 3 # Bowel Movements 1 1 2 Result Diagram: 10/03/16 1103 10/02/16 0734 Imaging Last Impressions Chest X-Ray 09/25/16 0000 Signed Impressions: Service Date/Time: September 16:19 - CONCLUSION: 1. There is basilar airspace disease. Differential diagnosis includes atelectasis and pneumonia. Findings slightly increased on the left since September 22. No pneumothorax. Bishop Fulton MD Gastrostomy Tube Placement 09/19/16 0000 Signed Impressions: Service Date/Time: Monday, September 19, 2016 16:01 - CONCLUSION: Uncomplicated gastrostomy tube placement as above. Chaitanya Rondon MD Head CT 09/17/16 0600 Signed Impressions: Service Date/Time: Saturday, September 17, 2016 04:14 - CONCLUSION: 1. Slightly evolving left basal ganglia hemorrhage with surrounding edema and mass effect similar to September 08. Right frontal ventriculostomy tube unchanged. Right ventricular size relatively stable. Bishop Fulton MD Head Magnetic Resonance Angiography 08/27/16 0000 Signed Impressions: Service Date/Time: Saturday, August 27, 2016 16:49 - CONCLUSION: Negative MRA of the brain. Vargas Freitas MD FACR Brain MRI 08/27/16 0000 Signed Impressions: Service Date/Time: Saturday, August 27, 2016 16:49 - CONCLUSION: 1. Large thalamic hemorrhage as described above. Extensive periventricular white matter changes are noted. There is compression of the third ventricle. Ventriculostomy is seen in the right lateral ventricle. 2. Hemorrhage does extend down the white matter tracts to the level of the right cerebral peduncle. Vargas Freitas MD FACR Objective Remarks GENERAL: Well-developed well-nourished. In no acute distress. SKIN: Warm and dry. No lesions noted. HEENT: Normocephalic. Pupils equal and round and reactive to light. Mucous membranes pink and moist. Trach in place. CARDIOVASCULAR: Regular rate and rhythm. No murmur appreciated. RESPIRATORY: No accessory muscle use. Coarse bibasilar breath sounds. PEG in place. GASTROINTESTINAL: Abdomen soft, non-tender, nondistended. Bowel sounds x4. MUSCULOSKELETAL: No obvious deformities. No clubbing or cyanosis. No edema. NEUROLOGICAL: Awake and alert. Open Does not follow commands. No tracking. Procedures PEG A/P Problem List: (1) ICH (intracerebral hemorrhage) ICD Code: I61.9 Status: Acute (2) Hypertensive emergency ICD Code: I16.1 Status: Resolved (3) Hypokalemia ICD Code: E87.6 Status: Resolved (4) Respiratory failure ICD Code: J96.90 Status: Chronic Assessment and Plan 61-year-old male with left basal ganglia hemorrhage, intraventricular extension test post placement of ventriculostomy drain. Left basal ganglia intraparenchymal hemorrhage with encephalopathy -s/p Right frontal ventriculostomy placement 08/26 with neurosurgery, CT head revealed left basal ganglia intraparenchymal hemorrhage 3.42 cm with extension to lateral ventricle, midline shift 5 mm to the right. Goal systolic blood pressure less than 140. EEG 08/30: generalized slowing, no seizure activity. Drain removed 09/17/16. Continue blood pressure control. Hypertensive emergency -Initially managed with Cardizem drip. Resolved. -Continue Norvasc 10 mg daily, hydralazine to 100 mg every 6 hours, lisinopril 20 po bid, lopressor 100 bid. catapres 0.3 bid. Controlled. Acute hypoxic and hypercarbic respiratory failure- secondary to Staphylococcus pneumonia, tracheostomy in place, continue T piece. Pulmonary following, chest x-ray from 09/22/16 shows improvement, still shows atelectasis. Continue pulmonary toilet, continue Levaquin until October 06. Pulmonary following. Fever: secondary to pneumonia, atelectasis or maybe central. Chest x-ray image with bibasilar airspace disease. No leukocytosis. On Levaquin till October 06. Afebrile since 09/29. Last Left pinna cellulitis: Improving. Topical antibiotic. Patient already on oral Levaquin. Wound care. Pressure offloading Escherichia coli UTI: s/p treatment Failure to thrive, protein energy malnutrition: status post PEG tube placement by IR 09/19/16, continue Glucerna, tube feeds at goal. Hyperglycemia of Critical Illness-continue sliding scale with Accu-Cheks. Stable discontinue sliding scale Hypernatremia and hypokalemia: Continue free water to 400 mL every 6 hours. Repeat BMP and magnesium improved, monitor. 10/06 diarrhea: Patient has been on Levaquin, stop date today. Check C. difficile. Start Lactinex. Follow-up labs in the a.m. Prophylaxis - GI - Protonix - DVT - SCD Discharge Planning Discharge planning to SNF when arranged. Problem Qualifiers (1) ICH (intracerebral hemorrhage): Qualified Code: I61.0 - Nontraumatic subcortical hemorrhage of left cerebral hemisphere (2) Respiratory failure: Pedro Morton Oct 06, 2016 10:57
--- NOTE | 2016-10-06 13:12 | HHI.PR ---
Subjective Remarks .Stable On a T Bar 30 %. less secretions. No response to commands. Objective Vital Signs Date Time Temp Pulse Resp B/P Pulse Ox O2 Delivery O2 Flow Rate FiO2 10/06/16 12:00 97.7 80 16 135/77 91 10/06/16 08:00 98.3 77 20 131/65 98 10/06/16 04:00 97.7 77 18 126/71 97 10/06/16 00:00 98.1 75 18 136/79 99 10/05/16 20:30 T-Piece 6.00 28 10/05/16 20:19 77 10/05/16 20:00 97.4 78 18 127/76 98 10/05/16 20:00 T-piece 28 10/05/16 16:33 98.0 77 20 113/74 96 I/O 10/05/16 10/05/16 10/05/16 10/06/16 10/06/16 10/06/16 07:00 15:00 23:00 07:00 15:00 23:00 Intake Total 918 ml 0 ml 0 ml Balance 918 ml 0 ml 0 ml Intake Oral 0 ml 0 ml Tube Feeding 558 ml Other 360 ml # Voids 3 1 3 # Bowel Movements 1 1 2 Result Diagram: 10/03/16 1103 10/02/16 0734 Objective Remarks This is an averagely built middle-aged man who is poorly responsive on a trach collar. He has weakness of his right extremities. HEENT: Head normocephalic. Pupils reactive. Throat is clear. NECK: Supple without venous distension. No thyromegaly or lymphadenopathy. CHEST: Decreased breath sounds at the bases and occ wheeze. HEART: The heart sounds are regular, S1-S2. No murmur. No S3. ABDOMEN: The abdomen is soft, nontender. Bowel sounds are active. No organomegaly. EXTREMITIES: Weakness and muscle wasting of the right extremities. The patient does move left extremities , .Skin was dry . RECTAL: Exam is deferred. Assessment and Plan Assessment and Plan IMPRESSION 1. Status post left basal ganglia intraparenchymal hemorrhage with the right frontal ventriculostomy placement. 2. Acute respiratory failure resolved. 3. Bibasilar atelectasis and pneumonia. 4. History of uncontrolled hypertension. 5. Right hemiplegia. Plan : 1. Cont on T collar 30 %. 2. Trach suction and lavage prn. 3. Nebs bid , duoneb. 4. BMP ,CBC 5. Tube feeds at 60 CC. 6. PT evaluation. 7. D/C Trach Sutures Lynne White MD Oct 06, 2016 13:12
[2016-10-06] MEDS: LACTOBACILLUS ACIDOPHILUS 1 GM PACKET TUBE SCH ×2 (15:39→20:54)
[2016-10-06] MEDS: ENOXAPARIN SODIUM 40 MG/0.4 ML SYRINGE SQ SCH (15:40)
--- NOTE | 2016-10-06 16:30 | HHI.HCPN ---
Reason for visit a. To assist with evaluation and management of symptoms including: pain, dyspnea, debility, b. To assist medical decision maker(s) with: better understanding of current medical conditions; weighing benefits/burdens of medical treatment options; making medical treatment decisions. (Fara Negron) Subjective/Interval History Mr. Ruiz has his eyes open, appears to track staff w eyes, appears to have a more intentional gaze. Not following commands but will move L hand / arm and L leg spontaneously. Difficult to determine if some of his movements are intentional. RN feels he as some understanding at times. Has yet to be to a solomon -chair. Per RN last night he disconnected his trach, and PEG and removed the condom cath. He has had 3-4 loose stools in the last 24 hrs - concern is for C.Diff due to ABX - culture pending . He is tolerating feedings via PEG. He remains on a T-Piece with 5-6L O2. Sputum was positive for staph aureus on 09/25/16. Lab work is stable. Last CXR 09/25/16 showed bibasilar consolidation, increased from prior study. Gisel, his [id number], comes to see him daily and is providing his and family with updates. He remains a FULL CODE at this time. Family is hopeful for more recovery. Injury occurred 08/26/16. He has had some neurologic improvement. (Fara Negron) Advance Directives Living Will: Never completed Health Care Surrogate: Never completed Durable Power of Correctional Manager: Never completed (Fara Negron) Advance Directive Specifics Documented care wishes: Full CODE STATUS (Fara Negron) Objective Vital Signs Date Time Temp Pulse Resp B/P Pulse Ox O2 Delivery O2 Flow Rate FiO2 10/06/16 12:00 97.7 80 16 135/77 91 10/06/16 10:16 95 T-piece 28 10/06/16 08:00 98.3 77 20 131/65 98 10/06/16 04:00 97.7 77 18 126/71 97 10/06/16 00:00 98.1 75 18 136/79 99 10/05/16 20:30 T-Piece 6.00 28 10/05/16 20:19 77 3/19/17 20:00 97.4 78 18 127/76 98 10/05/16 20:00 T-piece 28 10/05/16 16:33 98.0 77 20 113/74 96 Intake & Output 10/06/16 10/06/16 07:00 19:00 Intake Total 0 ml Balance 0 ml Intake Oral 0 ml # Voids 4 # Bowel Movements 3 Physical Exam CONSTITUTIONAL/GENERAL: This is an adequately nourished patient, in no apparent distress. With global aphasia TUBES/LINES/DRAINS: T-Piece, [place], central line,PEG SKIN: No jaundice, rashes, or lesions. Well healed suture lines to this skull, post ICP line No wounds seen anteriorly. Skin temperature appropriate. Not diaphoretic. HEAD: Atraumatic. Normocephalic. EYES: Pupils equal and round , reactive, following w eyes ENT: Able to adequately assess hearing. Mouth/ Throat without visible erythema , exudates, masses, or lesions. NECK: T tube in place CARDIOVASCULAR: Regular rate and rhythm without murmurs, gallops, or rubs. No JVD. Peripheral pulses symmetric. RESPIRATORY/CHEST: Tpiece at 5 L, clear anterior, posterior diminished mid to base, Symmetric, unlabored respirations. GASTROINTESTINAL: Abdomen soft, non-tender, nondistended. No hepato-splenomegaly , or palpable masses. No guarding. Bowel sounds present. GENITOURINARY: Without palpable bladder distension. Urinary catheter in place. MUSCULOSKELETAL: Extremities without clubbing, cyanosis, or edema. No joint tenderness or effusion noted. No calf tenderness. No mottling or clubbing. LYMPHATICS: No palpable cervical or supraclavicular adenopathy. NEUROLOGICAL: Will track and follow w eyes. Spontaneous movement of left upper and lower extremities - unclear how much is intentional / meaningful. PSYCHIATRIC: Unable to assess (Fara Negron) Diagnostic Tests Laboratory Laboratory Tests Test 10/02/16 10/03/16 07:34 11:03 Sodium Level 148 MEQ/L Potassium Level 3.6 MEQ/L Chloride Level 113 MEQ/L Carbon Dioxide Level 30.2 MEQ/L Anion Gap 5 MEQ/L Blood Urea Nitrogen 30 MG/DL Creatinine 0.78 MG/DL Estimat Glomerular Filtration 101 ML/MIN Rate Random Glucose 170 MG/DL Calcium Level 9.4 MG/DL Magnesium Level 2.5 MG/DL White Blood Count 4.2 TH/MM3 Red Blood Count 3.72 MIL/MM3 Hemoglobin 11.6 GM/DL Hematocrit 34.4 % Mean Corpuscular Volume 92.4 FL Mean Corpuscular Hemoglobin 31.1 PG Mean Corpuscular Hemoglobin 33.6 % Concent Red Cell Distribution Width 13.1 % Platelet Count 168 TH/MM3 Mean Platelet Volume 11.5 FL Neutrophils (%) (Auto) 58.3 % Lymphocytes (%) (Auto) 21.7 % Monocytes (%) (Auto) 12.5 % Eosinophils (%) (Auto) 6.7 % Basophils (%) (Auto) 0.8 % Neutrophils # (Auto) 2.5 TH/MM3 Lymphocytes # (Auto) 0.9 TH/MM3 Monocytes # (Auto) 0.5 TH/MM3 Eosinophils # (Auto) 0.3 TH/MM3 Basophils # (Auto) 0.0 TH/MM3 CBC Comment DIFF FINAL Differential Comment (Fara Negron) Result Diagram: 10/03/16 1103 10/02/16 0734 Procedures PEG 09/19/16 (Fara Negron) Assessment and Plan Disease Oriented Problem List: (1) Stroke, hemorrhagic (2) Global aphasia Comment: Unable to assess level of cognition. Not following commands. (3) Respiratory failure Comment: Now on a T piece with 5 L./ 28% (4) Hypertension Comment: 1. 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 Has been contacted via [facility] with help of her sister Gisel. Family has unrealistic expectations of his long-term outcome. . . Important Contacts Jodie García, , (lives in [place]) - Haritha Ruiz [phone] - pt's daughter, living in [place]. Boni Ruiz, son, Lives in [place] - [phone] Gisel Salgado, (Mother's sister), Lives in [place]. . Prognosis Guarded - At this point, remains on T-Piece w 5L, feeding tube, While he will open his eyes and have spontaneous movement of L upper and lower extremities, he remains with global aphasia. Ability for rehab is limited to meaningful existence is unlikely. . Code Status: Full Code Plan Decision Maker: [place] Statues indicate in the absence of a written HCS, decision making falls to his who lives in [facility]. She has agreed to participate in decision making. Code Status: Full code Family Discussion: LISA Batres sees him daily - hopeful for recovery Symptoms: Dyspnea, dysphagia, debility, pain Palliative care phone number provided - will follow during hospital stay. . (Fara Negron) Attestation To help prompt me to consider important information that might be impacting today's encounter and assessment, information from prior notes written by myself or my colleagues may have been "brought forward" into today's note. My signature on this note, however, is an attestation that I personally performed the exam, history, and/or decision-making noted today, and, unless otherwise indicated, the interactions with patient, family, and staff as well as the review of records all occurred today. I also attest that the listed assessment and stated plan reflect my best clinical judgment today based on the combination of historical information, prior notes, and today's exam/ interactions. When time spent is documented, it refers only to time spent today by the signer, or if indicated, combined time spent today by collaborating physician/nurse practitioner. (Fara Negron) Collaborating MD Comments Chart reviewed. Cased discussed with palliative care MARKETING COMMUNICATIONS MANAGER. Above LEX note reviewed and I concur. . (Niranjan Garza MD) Fara Negron Oct 06, 2016 16:30 Niranjan Garza MD December 15, 2016 14:22
[2016-10-07 00:36] VITALS: BP 124/69; PULSE 75; RESP 20; TEMP 97.6; O2SAT 98
[2016-10-07 04:00] VITALS: BP 134/79; PULSE 77; RESP 18; TEMP 97.6; O2SAT 96
[2016-10-07] MEDS: FREE WATER G-TUBE SCH ×3 (04:00→20:00)
[2016-10-07] MEDS: SENNOSIDES 8.6 MG TAB GT SCH ×2 (05:12→14:13)
[2016-10-07] MEDS: hydrALAZINE HCL 100 MG TAB G-TUBE SCH ×4 (05:12→23:51)
[2016-10-07 06:37] LABS: AUTOMATED NEUTROPHIL # 3.3 TH/MM3 (1.8-7.7); BASOPHIL % 0.6 % (0.0-2.0); EOSINOPHIL # 0.1 TH/MM3 (0-0.4); EOSINOPHIL % 2.7 % (0.0-4.0); HEMATOCRIT 31.5 % (39.0-51.0); HEMO FLAGS DIFF FINAL; LYMPH % 20.8 % (9.0-44.0); MEAN CELL VOLUME 91.4 FL (80.0-100.0); MEAN CORPUSCULAR HEMOGLOBIN 32.1 PG (27.0-34.0); MEAN CORPUSCULAR HGB CONC 35.2 % (32.0-36.0); MONO % 10.3 % (0.0-8.0); NEUT % 65.6 % (16.0-70.0); PLATELET COUNT 178 TH/MM3 (150-450); RED BLOOD COUNT 3.45 MIL/MM3 (4.50-5.90); RED CELL DISTRIBUTION WIDTH 13.3 % (11.6-17.2)
[2016-10-07 07:10] LABS: BICARBONATE 32.6 MEQ/L (21.0-32.0); MAGNESIUM 2.2 MG/DL (1.5-2.5); POTASSIUM 3.1 MEQ/L (3.5-5.1)
[2016-10-07] MEDS: POLYETHYLENE GLYCOL 17 GM PKG GT SCH (07:57)
[2016-10-07 08:46] VITALS: O2SAT 99
[2016-10-07] MEDS: SODIUM CHLORIDE 0.9% FLUSH 5 ML FLUSH IVF SCH (09:00)
[2016-10-07 09:24] VITALS: BP 140/79; PULSE 81; RESP 20; TEMP 98.9; O2SAT 98
[2016-10-07] MEDS: cloNIDine HCL 0.3 MG TAB G-TUBE SCH ×2 (10:00→21:44)
--- NOTE | 2016-10-07 10:08 | HHI.PR ---
Subjective Remarks Follow-up for pneumonia No desaturation, no increase in oxygen requirements, poor historian, no change in mental status. Afebrile. Objective Vitals Vital Signs Date Time Temp Pulse Resp B/P Pulse Ox O2 Delivery O2 Flow Rate FiO2 10/07/16 09:24 98.9 81 20 140/79 98 10/07/16 04:00 97.6 77 18 134/79 96 10/07/16 00:36 97.6 75 20 124/69 98 10/06/16 20:15 T-Piece 6.00 28 10/06/16 20:00 87 10/06/16 20:00 98.2 88 22 139/77 100 10/06/16 16:00 97.6 83 20 131/82 95 10/06/16 12:00 97.7 80 16 135/77 91 10/06/16 11:00 80 10/06/16 10:16 95 T-piece 28 I/O 10/06/16 10/06/16 10/06/16 10/07/16 10/07/16 10/07/16 07:00 15:00 23:00 07:00 15:00 23:00 Intake Total 0 ml 0 ml 580 ml Balance 0 ml 0 ml 580 ml Intake Oral 0 ml 0 ml Tube Feeding 480 ml Other 100 ml # Voids 3 3 3 # Bowel Movements 2 1 1 2 Result Diagram: 10/07/16 0552 10/07/16 0552 Objective Remarks GENERAL: Not in distress, nonverbal. EYES: No scleral icterus. No injection or drainage. NECK: Supple, trachea midline. No JVD CARDIOVASCULAR: Regular rate and rhythm without murmurs, gallops, or rubs. RESPIRATORY: Breath sounds equal bilaterally. No accessory muscle use. Poor effort. GASTROINTESTINAL: Abdomen soft, non-tender, nondistended. MUSCULOSKELETAL: No cyanosis, or edema. Awake, not oriented, does not follow any commands. Opens eyes with noxious stimulus, Not tracking. Positive for right hemiparesis. Procedures PEG A/P Problem List: (1) ICH (intracerebral hemorrhage) ICD Code: I61.9 Status: Acute (2) Hypertensive emergency ICD Code: I16.1 Status: Resolved (3) Hypokalemia ICD Code: E87.6 Status: Resolved (4) Respiratory failure ICD Code: J96.90 Status: Chronic Assessment and Plan 61-year-old male with left basal ganglia hemorrhage, intraventricular extension test post placement of ventriculostomy drain. Left basal ganglia intraparenchymal hemorrhage with encephalopathy -s/p Right frontal ventriculostomy placement 08/26 with neurosurgery, CT head revealed left basal ganglia intraparenchymal hemorrhage 3.42 cm with extension to lateral ventricle, midline shift 5 mm to the right. Goal systolic blood pressure less than 140. EEG 08/30: generalized slowing, no seizure activity. Drain removed 09/17/16. Continue blood pressure control. Hypertensive emergency -Initially managed with Cardizem drip. Resolved. -Continue Norvasc 10 mg daily, hydralazine to 100 mg every 6 hours, lisinopril 20 po bid, lopressor 100 bid. catapres 0.3 bid. Controlled. Acute hypoxic and hypercarbic respiratory failure secondary to Staphylococcus pneumonia- tracheostomy in place, continue T piece. Pulmonary following, chest x-ray from 09/22/16 shows improvement, still shows atelectasis. Continue pulmonary toilet, s/p Levaquin October 06. Pulmonary following. Monitor. Left pinna cellulitis: Improving. Topical antibiotic. Patient already on oral Levaquin. Wound care. Pressure offloading Escherichia coli UTI: s/p treatment Failure to thrive, protein energy malnutrition: status post PEG tube placement by IR 09/19/16, continue Glucerna, tube feeds at goal. Hyperglycemia of Critical Illness-continue sliding scale with Accu-Cheks. Stable discontinue sliding scale Hypernatremia and hypokalemia: Continue free water to 400 mL every 6 hours. Repeat BMP and magnesium improved, monitor. Diarrhea: Finished Levaquin, C. difficile pending, cont Lactinex. No leukocytosis, doubt C. difficile. Hypokalemia-replaced Prophylaxis - GI - Protonix - DVT - SCD Discharge Planning Discharge planning to SNF when arranged. SSI pending Problem Qualifiers (1) ICH (intracerebral hemorrhage): Qualified Code: I61.0 - Nontraumatic subcortical hemorrhage of left cerebral hemisphere (2) Respiratory failure: Julian Mcmanus MD Oct 07, 2016 10:08 hemisphere (2) Respiratory failure: Julian Mcmanus MD Oct 07, 2016 10:08
[2016-10-07] MEDS: NEOMYCIN/POLYMYXIN/BACITRACIN OINT 15 GM TUBE TOPICAL SCH ×2 (10:14→21:45)
[2016-10-07] MEDS: LISINOPRIL 20 MG TAB G-TUBE SCH ×2 (10:15→21:44)
[2016-10-07] MEDS: METOPROLOL TARTRATE 50 MG TAB GT SCH ×2 (10:15→21:44)
[2016-10-07] MEDS: FAMOTIDINE 20 MG TAB NG SCH ×2 (10:15→21:44)
[2016-10-07] MEDS: ARTIFICIAL TEARS OPTH SOLN 15 ML BTL EACH EYE SCH ×3 (10:16→18:17)
[2016-10-07] MEDS: LACTOBACILLUS ACIDOPHILUS 1 GM PACKET TUBE SCH ×2 (10:17→21:44)
[2016-10-07] MEDS: BENEPROTEIN POWDER 1 PACK G-TUBE SCH ×3 (10:17→18:00)
[2016-10-07] MEDS: SODIUM CHLORIDE 0.9% FLUSH 5 ML FLUSH IV FLUSH SCH ×2 (10:18→21:45)
--- NOTE | 2016-10-07 10:38 | HHI.HCPN ---
Reason for visit a. To assist with evaluation and management of symptoms including: pain, dyspnea, debility, b. To assist medical decision maker(s) with: better understanding of current medical conditions; weighing benefits/burdens of medical treatment options; making medical treatment decisions. (Fara Negron) Subjective/Interval History Mr. Ruiz has his eyes open, appears to track staff w eyes, appears to have a more intentional gaze. Not following commands for me but will move L hand / arm and L leg spontaneously. Spoke w Sister in law Gisel who sees him often and states he will squeeze her hand - but it is sporadic. Difficult to determine if some of his movements are intentional. RN feels he as some understanding at times. Has yet to be to a solomon-chair. Has had 3-4 loose stools in the last 24 hrs - Miralax was held. He is tolerating feedings via PEG. He remains on a T-Piece with 5-6L O2. Sputum was positive for staph aureus on 09/25/16. Lab work is stable. Last CXR 09/25/16 showed bibasilar consolidation, increased from prior study. Gisel, his [id number], comes to see him daily and is providing his and family with updates. I spoke with her this morning - He remains a FULL CODE at this time. Family is hopeful for more recovery - feed self, walk, etc. Injury occurred 08/26/16. He has had some neurologic improvement but will need rn long term care placement for care. (Fara Negron) Advance Directives Living Will: Never completed Health Care Surrogate: Never completed Durable Power of Route Relief Driver: Never completed (Fara Negron) Advance Directive Specifics Documented care wishes: Full CODE STATUS (Fara Negron) Objective Vital Signs Date Time Temp Pulse Resp B/P Pulse Ox O2 Delivery O2 Flow Rate FiO2 10/07/16 09:24 98.9 81 20 140/79 98 10/07/16 04:00 97.6 77 18 134/79 96 10/07/16 00:36 97.6 75 20 124/69 98 10/06/16 20:15 T-Piece 6.00 28 10/06/16 20:00 87 10/06/16 20:00 98.2 88 22 139/77 100 10/06/16 16:00 97.6 83 20 131/82 95 10/06/16 12:00 97.7 80 16 135/77 91 10/06/16 11:00 80 Intake & Output 10/07/16 10/07/16 07:00 19:00 Intake Total 580 ml Balance 580 ml Tube Feeding 480 ml Other 100 ml # Voids 6 # Bowel Movements 3 Physical Exam CONSTITUTIONAL/GENERAL: This is an adequately nourished patient, in no apparent distress. With aphasia post R side brain hemorrhagic stroke/ TUBES/LINES/DRAINS: T-Piece, [place], central line,PEG SKIN: No jaundice, rashes, or lesions. Well healed suture lines to this skull, post ICP line No wounds seen anteriorly. Skin temperature appropriate. Not diaphoretic. HEAD: Atraumatic. Normocephalic. EYES: Pupils equal and round , reactive, following w eyes ENT: Able to adequately assess hearing. Mouth/ Throat without visible erythema , exudates, masses, or lesions. NECK: T tube in place CARDIOVASCULAR: Regular rate and rhythm without murmurs, gallops, or rubs. No JVD. Peripheral pulses symmetric. RESPIRATORY/CHEST: Tpiece at 5 L, clear anterior, posterior diminished mid to base, Symmetric, unlabored respirations. GASTROINTESTINAL: Abdomen soft, non-tender, nondistended. No hepato-splenomegaly , or palpable masses. No guarding. Bowel sounds present. GENITOURINARY: Without palpable bladder distension. Urinary catheter in place. MUSCULOSKELETAL: Extremities without clubbing, cyanosis, or edema. No joint tenderness or effusion noted. No calf tenderness. No mottling or clubbing. LYMPHATICS: No palpable cervical or supraclavicular adenopathy. NEUROLOGICAL: Will track and follow w eyes. Spontaneous movement of left upper and lower extremities - unclear how much is intentional / meaningful. PSYCHIATRIC: Unable to assess (Fara Negron) Diagnostic Tests Laboratory Laboratory Tests Test 10/07/16 05:52 White Blood Count 5.0 TH/MM3 (4.0-11.0) Red Blood Count 3.45 MIL/MM3 (4.50-5.90) Hemoglobin 11.1 GM/DL (13.0-17.0) Hematocrit 31.5 % (39.0-51.0) Mean Corpuscular Volume 91.4 FL (80.0-100.0) Mean Corpuscular Hemoglobin 32.1 PG (27.0-34.0) Mean Corpuscular Hemoglobin 35.2 % Concent (32.0-36.0) Red Cell Distribution Width 13.3 % (11.6-17.2) Platelet Count 178 TH/MM3 (150-450) Mean Platelet Volume 12.2 FL (7.0-11.0) Neutrophils (%) (Auto) 65.6 % (16.0-70.0) Lymphocytes (%) (Auto) 20.8 % (9.0-44.0) Monocytes (%) (Auto) 10.3 % (0.0-8.0) Eosinophils (%) (Auto) 2.7 % (0.0-4.0) Basophils (%) (Auto) 0.6 % (0.0-2.0) Neutrophils # (Auto) 3.3 TH/MM3 (1.8-7.7) Lymphocytes # (Auto) 1.0 TH/MM3 (1.0-4.8) Monocytes # (Auto) 0.5 TH/MM3 (0-0.9) Eosinophils # (Auto) 0.1 TH/MM3 (0-0.4) Basophils # (Auto) 0.0 TH/MM3 (0-0.2) CBC Comment DIFF FINAL Differential Comment Sodium Level 143 MEQ/L (136-145) Potassium Level 3.1 MEQ/L (3.5-5.1) Chloride Level 105 MEQ/L (98-107) Carbon Dioxide Level 32.6 MEQ/L (21.0-32.0) Anion Gap 5 MEQ/L (5-15) Blood Urea Nitrogen 25 MG/DL (7-18) Creatinine 0.74 MG/DL (0.60-1.30) Estimat Glomerular Filtration 108 ML/MIN Rate (>89) Random Glucose 144 MG/DL (74-106) Calcium Level 9.0 MG/DL (8.5-10.1) Magnesium Level 2.2 MG/DL (1.5-2.5) (Fara Negron) Result Diagram: 10/07/16 0552 10/07/16 0552 Procedures PEG 09/19/16 (Fara Negron) Assessment and Plan Disease Oriented Problem List: (1) Stroke, hemorrhagic (2) Global aphasia Comment: Unable to assess level of cognition. Sporadically following commands witnessed by staff and family. (3) Respiratory failure Comment: Now on a T piece with 5 L./ 28% (4) Hypertension Comment: 1. 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 Has been contacted via [employer] with help of her sister Gisel. Family has unrealistic expectations of his long-term outcome. . . Important Contacts Jodie García, , (lives in [place]) - Gisel Salgado, ('s sister), Lives in [place]. Haritha Ruiz [phone] - pt's daughter, living in [place]. Boni Ruiz, son, Lives in [place] - [phone] . Prognosis Guarded - At this point, remains on T-Piece w 5L, feeding tube, While he will open his eyes and have spontaneous movement of L upper and lower extremities, he remains with significant aphasia. Ability for rehab is limited to meaningful existence is unlikely. . Code Status: Full Code Plan Decision Maker: [place] Statues indicate in the absence of a written HCS, decision making falls to his who lives in [facility]. She has agreed to participate in decision making. Code Status: Full code ( updated 10/07/16) - family feels they want everything done Family Discussion: LISA Batres sees him daily - hopeful for recovery Symptoms: Dyspnea, dysphagia, debility, pain Palliative care phone number provided - will follow during hospital stay. . (Fara Negron) Attestation To help prompt me to consider important information that might be impacting today's encounter and assessment, information from prior notes written by myself or my colleagues may have been "brought forward" into today's note. My signature on this note, however, is an attestation that I personally performed the exam, history, and/or decision-making noted today, and, unless otherwise indicated, the interactions with patient, family, and staff as well as the review of records all occurred today. I also attest that the listed assessment and stated plan reflect my best clinical judgment today based on the combination of historical information, prior notes, and today's exam/ interactions. When time spent is documented, it refers only to time spent today by the signer, or if indicated, combined time spent today by collaborating physician/nurse practitioner. (Fara Negron) Collaborating MD Comments Chart reviewed. Cased discussed with palliative care WOOD GOUGER. Above WOOD GOUGER note reviewed and I concur. . (Niranjan Garza MD) Fara Negron Oct 07, 2016 10:38 Niranjan Garza MD December 15, 2016 14:24
[2016-10-07 12:30] VITALS: BP 141/82; PULSE 82; RESP 20; TEMP 97; O2SAT 95
[2016-10-07] MEDS: POTASSIUM CHLORIDE 25 MEQ EFFERVESCENT TAB PO SCH ×2 (14:12→21:45)
[2016-10-07] MEDS: ENOXAPARIN SODIUM 40 MG/0.4 ML SYRINGE SQ SCH (14:12)
--- NOTE | 2016-10-07 19:14 | HHI.PR ---
Subjective Remarks No change. On a T Bar 30 %. less secretions.No fever. No response to commands. Objective Vital Signs Date Time Temp Pulse Resp B/P Pulse Ox O2 Delivery O2 Flow Rate FiO2 10/07/16 12:30 97.0 82 20 141/82 95 10/07/16 09:24 98.9 81 20 140/79 98 10/07/16 08:46 99 T-piece 6.00 28 10/07/16 04:00 97.6 77 18 134/79 96 10/07/16 00:36 97.6 75 20 124/69 98 10/06/16 20:15 T-Piece 6.00 28 10/06/16 20:00 87 10/06/16 20:00 98.2 88 22 139/77 100 I/O 10/06/16 10/06/16 10/06/16 10/07/16 10/07/16 10/07/16 07:00 15:00 23:00 07:00 15:00 23:00 Intake Total 0 ml 0 ml 580 ml Balance 0 ml 0 ml 580 ml Intake Oral 0 ml 0 ml Tube Feeding 480 ml Other 100 ml # Voids 3 3 3 # Bowel Movements 2 1 1 2 Result Diagram: 10/07/16 0552 10/07/16 0552 Objective Remarks This is an averagely built middle-aged man who is responsive on a trach collar. He has weakness of his right extremities. HEENT: Head normocephalic. Pupils reactive. Throat is clear. NECK: Supple without venous distension. No thyromegaly or lymphadenopathy. CHEST: Decreased breath sounds at the bases . HEART: The heart sounds are regular, S1-S2. No murmur. No S3. ABDOMEN: The abdomen is soft, nontender. Bowel sounds are active. No organomegaly. EXTREMITIES: Weakness and muscle wasting of the right extremities. The patient does move his left extremities., RECTAL: Exam is deferred. Assessment and Plan Assessment and Plan IMPRESSION 1. Status post left basal ganglia intraparenchymal hemorrhage with the right frontal ventriculostomy placement. 2. Acute respiratory failure resolved. 3. Bibasilar atelectasis and pneumonia. 4. History of uncontrolled hypertension. 5. Right hemiplegia. Plan : 1. Cont on T collar 28 %. 2. Trach suction and lavage prn. 3. Nebs bid , duoneb. 4. Up in chair as tolerated. 5. Tube feeds at 60 CC. 6. PT evaluation. Lynne White MD Oct 07, 2016 19:14
[2016-10-07 20:00] VITALS: BP 139/80; PULSE 77; PULSE 78; RESP 18; TEMP 98; O2SAT 99
[2016-10-08] VITALS (9 sets, daily range): BP systolic 116–144; BP diastolic 69–82; PULSE 77–87; RESP 16–18; TEMP 97.9–98.9; O2SAT 93–98
[2016-10-08] MEDS: FREE WATER G-TUBE SCH ×3 (04:00→20:00)
[2016-10-08] MEDS: hydrALAZINE HCL 100 MG TAB G-TUBE SCH ×4 (05:02→23:57)
[2016-10-08] MEDS: SENNOSIDES 8.6 MG TAB GT SCH ×2 (05:02→18:08)
[2016-10-08] MEDS: SODIUM CHLORIDE 0.9% FLUSH 5 ML FLUSH IVF SCH (09:00)
[2016-10-08] MEDS: BENEPROTEIN POWDER 1 PACK G-TUBE SCH ×3 (09:00→18:00)
[2016-10-08] MEDS: POTASSIUM CHLORIDE 25 MEQ EFFERVESCENT TAB PO SCH ×2 (09:25→20:36)
[2016-10-08] MEDS: LACTOBACILLUS ACIDOPHILUS 1 GM PACKET TUBE SCH ×2 (09:25→20:36)
[2016-10-08] MEDS: LISINOPRIL 20 MG TAB G-TUBE SCH ×2 (09:25→20:40)
[2016-10-08] MEDS: FAMOTIDINE 20 MG TAB NG SCH ×2 (09:26→20:36)
[2016-10-08] MEDS: SODIUM CHLORIDE 0.9% FLUSH 5 ML FLUSH IV FLUSH SCH ×2 (09:26→20:36)
[2016-10-08] MEDS: METOPROLOL TARTRATE 50 MG TAB GT SCH ×2 (09:26→20:36)
[2016-10-08] MEDS: cloNIDine HCL 0.3 MG TAB G-TUBE SCH ×2 (09:26→22:03)
[2016-10-08] MEDS: ARTIFICIAL TEARS OPTH SOLN 15 ML BTL EACH EYE SCH ×3 (09:27→18:08)
[2016-10-08] MEDS: NEOMYCIN/POLYMYXIN/BACITRACIN OINT 15 GM TUBE TOPICAL SCH ×2 (09:28→20:37)
--- NOTE | 2016-10-08 10:46 | HHI.PR ---
Subjective Remarks Follow-up for diarrhea/pneumonia, diarrhea resolved, no change in oxygen requirements, afebrile, poor historian, no change in mental status. Discussed with RN Objective Vitals Vital Signs Date Time Temp Pulse Resp B/P Pulse Ox O2 Delivery O2 Flow Rate FiO2 10/08/16 08:00 98.3 81 18 132/72 95 10/08/16 04:00 98.3 80 18 116/71 93 10/08/16 00:00 98.6 77 18 122/69 95 10/07/16 20:45 T-Piece 6.00 28 10/07/16 20:00 77 10/07/16 20:00 98.0 78 18 139/80 99 10/07/16 12:30 97.0 82 20 141/82 95 I/O 10/07/16 10/07/16 10/07/16 10/08/16 10/08/16 10/08/16 07:00 15:00 23:00 07:00 15:00 23:00 Intake Total 640 ml 640 ml Output Total 300 ml Balance 640 ml 340 ml Intake Oral 0 ml 0 ml Tube Feeding 480 ml 480 ml Other 160 ml 160 ml Output Urine Total 300 ml # Voids 3 1 2 # Bowel Movements 2 0 0 Result Diagram: 10/07/16 0552 10/07/16 0552 Objective Remarks GENERAL: Not in distress, nonverbal. EYES: No scleral icterus. No injection or drainage. NECK: Supple, trachea midline. No JVD CARDIOVASCULAR: Regular rate and rhythm without murmurs, gallops, or rubs. RESPIRATORY: Breath sounds equal bilaterally. No accessory muscle use. Poor effort. GASTROINTESTINAL: Abdomen soft, non-tender, nondistended. MUSCULOSKELETAL: No cyanosis, or edema. Awake, not oriented, does not follow any commands. Opens eyes with noxious stimulus, Not tracking. Positive for right hemiparesis. Procedures PEG A/P Problem List: (1) ICH (intracerebral hemorrhage) ICD Code: I61.9 Status: Acute (2) Hypertensive emergency ICD Code: I16.1 Status: Resolved (3) Hypokalemia ICD Code: E87.6 Status: Resolved (4) Respiratory failure ICD Code: J96.90 Status: Chronic Assessment and Plan 61-year-old male with left basal ganglia hemorrhage, intraventricular extension test post placement of ventriculostomy drain. Left basal ganglia intraparenchymal hemorrhage with encephalopathy -s/p Right frontal ventriculostomy placement 08/26 with neurosurgery, CT head revealed left basal ganglia intraparenchymal hemorrhage 3.42 cm with extension to lateral ventricle, midline shift 5 mm to the right. Goal systolic blood pressure less than 140. EEG 08/30: generalized slowing, no seizure activity. Drain removed 09/17/16. Continue blood pressure control. Hypertensive emergency, now controlled -Initially managed with Cardizem drip. Resolved. -Continue Norvasc 10 mg daily, hydralazine to 100 mg every 6 hours, lisinopril 20 po bid, lopressor 100 bid. catapres 0.3 bid. Controlled. Acute hypoxic and hypercarbic respiratory failure secondary to Staphylococcus pneumonia- tracheostomy in place, continue T piece. Pulmonary following, chest x-ray from 09/22/16 shows improvement, still shows atelectasis. Continue pulmonary toilet, s/p Levaquin October 06. Pulmonary following. Monitor. Left pinna cellulitis: Improving. Topical antibiotic. Patient already on oral Levaquin. Wound care. Pressure offloading Escherichia coli UTI: s/p treatment Failure to thrive, protein energy malnutrition: status post PEG tube placement by IR 09/19/16, continue Glucerna, tube feeds at goal. Hyperglycemia of Critical Illness-continue sliding scale with Accu-Cheks. Stable discontinue sliding scale Hypernatremia and hypokalemia: Continue free water to 400 mL every 6 hours. Repeat BMP and magnesium improved, monitor. Diarrhea: Finished Levaquin, C. difficile checked but diarrhea resolved, cont Lactinex. No leukocytosis, doubt C. difficile. Hypokalemia-replaced Prophylaxis - GI - Protonix - DVT - SCD Discharge Planning Discharge planning to SNF when arranged. SSI pending Problem Qualifiers (1) ICH (intracerebral hemorrhage): Qualified Code: I61.0 - Nontraumatic subcortical hemorrhage of left cerebral hemisphere (2) Respiratory failure: Julian Mcmanus MD Oct 08, 2016 10:45
[2016-10-08] MEDS: ENOXAPARIN SODIUM 40 MG/0.4 ML SYRINGE SQ SCH (13:28)
[2016-10-09] VITALS (9 sets, daily range): BP systolic 109–138; BP diastolic 65–86; PULSE 76–91; RESP 16–18; TEMP 97.4–99.1; O2SAT 94–97
[2016-10-09] MEDS: FREE WATER G-TUBE SCH ×3 (04:00→20:00)
[2016-10-09] MEDS: hydrALAZINE HCL 100 MG TAB G-TUBE SCH ×4 (05:39→23:30)
[2016-10-09] MEDS: SENNOSIDES 8.6 MG TAB GT SCH ×2 (05:39→17:13)
--- NOTE | 2016-10-09 08:15 | HHI.PR ---
Subjective Remarks In bed, doesn't appear in distress. Moves left side. No change. Objective Vitals Vital Signs Date Time Temp Pulse Resp B/P Pulse Ox O2 Delivery O2 Flow Rate FiO2 10/09/16 04:56 97.4 81 18 136/79 96 10/09/16 04:00 T-Piece 6.00 28 10/09/16 00:00 T-Piece 6.00 28 10/09/16 00:00 97.6 78 18 126/79 94 10/08/16 22:24 97 T-piece 6.00 28 10/08/16 20:23 87 10/08/16 20:00 T-Piece 6.00 28 10/08/16 20:00 98.3 83 16 138/78 97 10/08/16 16:00 97.9 82 16 137/82 98 10/08/16 12:00 98.9 83 18 144/74 95 10/08/16 10:35 98 T-piece 28 I/O 10/08/16 10/08/16 10/08/16 10/09/16 10/09/16 10/09/16 07:00 15:00 23:00 07:00 15:00 23:00 Intake Total 640 ml 0 ml 909 ml 836 ml Output Total 300 ml 750 ml Balance 340 ml -750 ml 909 ml 836 ml Intake Oral 0 ml 0 ml Tube Feeding 480 ml 549 ml 476 ml Tube Irrigant 360 ml 360 ml Other 160 ml Output Urine Total 300 ml 750 ml # Voids 2 2 3 # Bowel Movements 0 0 0 0 Result Diagram: 10/07/16 0552 10/07/16 0552 Imaging Last Impressions Chest X-Ray 09/25/16 0000 Signed Impressions: Service Date/Time: September 16:19 - CONCLUSION: 1. There is basilar airspace disease. Differential diagnosis includes atelectasis and pneumonia. Findings slightly increased on the left since September 22. No pneumothorax. Bishop Fulton MD Gastrostomy Tube Placement 09/19/16 0000 Signed Impressions: Service Date/Time: Monday, September 19, 2016 16:01 - CONCLUSION: Uncomplicated gastrostomy tube placement as above. Chaitanya Rondon MD Head CT 09/17/16 0600 Signed Impressions: Service Date/Time: Saturday, September 17, 2016 04:14 - CONCLUSION: 1. Slightly evolving left basal ganglia hemorrhage with surrounding edema and mass effect similar to September 08. Right frontal ventriculostomy tube unchanged. Right ventricular size relatively stable. Bishop Fulton MD Head Magnetic Resonance Angiography 08/27/16 0000 Signed Impressions: Service Date/Time: Saturday, August 27, 2016 16:49 - CONCLUSION: Negative MRA of the brain. Vargas Freitas MD FACR Brain MRI 08/27/16 0000 Signed Impressions: Service Date/Time: Saturday, August 27, 2016 16:49 - CONCLUSION: 1. Large thalamic hemorrhage as described above. Extensive periventricular white matter changes are noted. There is compression of the third ventricle. Ventriculostomy is seen in the right lateral ventricle. 2. Hemorrhage does extend down the white matter tracts to the level of the right cerebral peduncle. Vargas Freitas MD FACR Objective Remarks GENERAL: 61 yo male, doesn't appear in acute distress, nonverbal. SKIN: Warm and dry. HEAD: Atraumatic. Normocephalic. EYES: Pupils equal and round. No scleral icterus. No injection or drainage. ENT: No nasal bleeding or discharge. Mucous membranes pink and moist. NECK: Trachea midline. No JVD. CARDIOVASCULAR: Regular rate and rhythm. RESPIRATORY: No accessory muscle use. Clear to auscultation. Breath sounds equal bilaterally. GASTROINTESTINAL: Abdomen soft, non-tender, nondistended. Hepatic and splenic margins not palpable. MUSCULOSKELETAL: Extremities without clubbing, cyanosis, or edema. No obvious deformities. NEUROLOGICAL: Awake and alert, not oriented, does not follow any commands. Opens eyes. Not tracking. Positive for right hemiparesis. PSYCHIATRIC: Appropriate mood and affect; insight and judgment normal. Procedures PEG A/P Problem List: (1) ICH (intracerebral hemorrhage) ICD Code: I61.9 Status: Acute (2) Hypertensive emergency ICD Code: I16.1 Status: Resolved (3) Hypokalemia ICD Code: E87.6 Status: Resolved (4) Respiratory failure ICD Code: J96.90 Status: Chronic Assessment and Plan 61-year-old male with left basal ganglia hemorrhage, intraventricular extension test post placement of ventriculostomy drain. Left basal ganglia intraparenchymal hemorrhage with encephalopathy -s/p Right frontal ventriculostomy placement 08/26 with neurosurgery, CT head revealed left basal ganglia intraparenchymal hemorrhage 3.42 cm with extension to lateral ventricle, midline shift 5 mm to the right. Goal systolic blood pressure less than 140. EEG 08/30: generalized slowing, no seizure activity. Drain removed 09/17/16. Continue blood pressure control. Hypertensive emergency, now controlled -Initially managed with Cardizem drip. Resolved. -Continue Norvasc 10 mg daily, hydralazine to 100 mg every 6 hours, lisinopril 20 po bid, lopressor 100 bid. catapres 0.3 bid. Controlled. Acute hypoxic and hypercarbic respiratory failure secondary to Staphylococcus pneumonia- tracheostomy in place, continue T piece. Pulmonary following, chest x-ray from 09/22/16 shows improvement, still shows atelectasis. Continue pulmonary toilet, s/p Levaquin October 06. Pulmonary following. Monitor. Left pinna cellulitis: Improving. Topical antibiotic. Patient already on oral Levaquin. Wound care. Pressure offloading Escherichia coli UTI: s/p treatment Failure to thrive, protein energy malnutrition: status post PEG tube placement by IR 09/19/16, continue Glucerna, tube feeds at goal. Hyperglycemia of Critical Illness-continue sliding scale with Accu-Cheks. Stable discontinue sliding scale Hypernatremia and hypokalemia: Continue free water to 400 mL every 6 hours. Repeat BMP and magnesium improved, monitor. Diarrhea: Finished Levaquin, C. difficile checked but diarrhea resolved, cont Lactinex. No leukocytosis, doubt C. difficile. Hypokalemia-replaced. Monitor and replace as need. Prophylaxis - GI - Protonix - DVT - SCD Discharge Planning Discharge planning to SNF when arranged. SSI pending Discussed with the nurse Problem Qualifiers (1) ICH (intracerebral hemorrhage): Qualified Code: I61.0 - Nontraumatic subcortical hemorrhage of left cerebral hemisphere (2) Respiratory failure: Cielo Roa MD Oct 09, 2016 08:15 Cielo Roa MD Oct 09, 2016 08:15
[2016-10-09] MEDS: BENEPROTEIN POWDER 1 PACK G-TUBE SCH ×3 (09:00→17:47)
[2016-10-09] MEDS: SODIUM CHLORIDE 0.9% FLUSH 5 ML FLUSH IVF SCH (09:00)
[2016-10-09] MEDS: cloNIDine HCL 0.3 MG TAB G-TUBE SCH ×2 (09:26→22:15)
[2016-10-09] MEDS: NEOMYCIN/POLYMYXIN/BACITRACIN OINT 15 GM TUBE TOPICAL SCH ×2 (09:26→20:40)
[2016-10-09] MEDS: FAMOTIDINE 20 MG TAB NG SCH ×2 (09:26→20:39)
[2016-10-09] MEDS: LISINOPRIL 20 MG TAB G-TUBE SCH ×2 (09:26→20:39)
[2016-10-09] MEDS: METOPROLOL TARTRATE 50 MG TAB GT SCH ×2 (09:26→20:39)
[2016-10-09] MEDS: ARTIFICIAL TEARS OPTH SOLN 15 ML BTL EACH EYE SCH ×3 (09:26→17:13)
[2016-10-09] MEDS: SODIUM CHLORIDE 0.9% FLUSH 5 ML FLUSH IV FLUSH SCH ×2 (09:27→20:39)
[2016-10-09] MEDS: LACTOBACILLUS ACIDOPHILUS 1 GM PACKET TUBE SCH ×2 (09:29→20:39)
[2016-10-09] MEDS: ENOXAPARIN SODIUM 40 MG/0.4 ML SYRINGE SQ SCH (12:38)
--- NOTE | 2016-10-09 18:29 | HHI.PR ---
Subjective Remarks No change. On a T Bar 30 %..No fever. No response to commands. Moves left arm and leg Objective Vital Signs Date Time Temp Pulse Resp B/P Pulse Ox O2 Delivery O2 Flow Rate FiO2 10/09/16 16:00 98.1 78 18 117/68 96 10/09/16 12:00 97.6 76 16 109/65 97 10/09/16 09:00 T-Piece 6.00 28 10/09/16 09:00 88 10/09/16 08:26 96 T-piece 28 10/09/16 08:00 97.8 86 16 122/72 96 10/09/16 04:56 97.4 81 18 136/79 96 10/09/16 04:00 T-Piece 6.00 28 10/09/16 00:00 T-Piece 6.00 28 10/09/16 00:00 97.6 78 18 126/79 94 10/08/16 22:24 97 T-piece 6.00 28 10/08/16 20:23 87 10/08/16 20:00 T-Piece 6.00 28 10/08/16 20:00 98.3 83 16 138/78 97 I/O 10/08/16 10/08/16 10/08/16 10/09/16 10/09/16 10/09/16 07:00 15:00 23:00 07:00 15:00 23:00 Intake Total 640 ml 0 ml 909 ml 836 ml 0 ml Output Total 300 ml 750 ml Balance 340 ml -750 ml 909 ml 836 ml 0 ml Intake Oral 0 ml 0 ml 0 ml Tube Feeding 480 ml 549 ml 476 ml Tube Irrigant 360 ml 360 ml Other 160 ml Output Urine Total 300 ml 750 ml # Voids 2 2 3 1 # Bowel Movements 0 0 0 0 0 Result Diagram: 10/07/16 0552 10/07/16551 Objective Remarks This is an averagely built middle-aged man who is responsive on a trach collar. He has weakness of his right extremities. HEENT: Head normocephalic. Pupils reactive. Throat is clear. NECK: Supple without venous distension. No thyromegaly or lymphadenopathy. CHEST: Decreased breath sounds at the bases . HEART: The heart sounds are regular, S1-S2. No murmur. No S3. ABDOMEN: The abdomen is soft, nontender. Bowel sounds are active. No organomegaly. EXTREMITIES: Weakness and muscle wasting of the right extremities. The patient does move his left extremities., RECTAL: Exam is deferred. Assessment and Plan Assessment and Plan IMPRESSION 1. Status post left basal ganglia intraparenchymal hemorrhage with the right frontal ventriculostomy placement. 2. Acute respiratory failure resolved. 3. Bibasilar atelectasis and pneumonia. 4. History of uncontrolled hypertension. 5. Right hemiplegia. Plan : 1. Cont on T collar 28 %. 2. Trach suction and lavage prn. 3. Nebs bid , duoneb. 4. Up in chair as tolerated. 5. Tube feeds at 60 CC. 6. PT evaluation. 7. Change trach and use PM valve to talk Lynne White MD Oct 09, 2016 18:29
[2016-10-10] VITALS (11 sets, daily range): BP systolic 121–152; BP diastolic 59–87; PULSE 73–102; RESP 18–22; TEMP 97.9–99.7; O2SAT 95–99
[2016-10-10] MEDS: FREE WATER G-TUBE SCH ×3 (03:55→20:00)
[2016-10-10] MEDS: hydrALAZINE HCL 100 MG TAB G-TUBE SCH ×3 (05:48→18:18)
[2016-10-10] MEDS: SENNOSIDES 8.6 MG TAB GT SCH ×2 (05:49→18:00)
[2016-10-10 07:29] LABS: AUTOMATED NEUTROPHIL # 2.5 TH/MM3 (1.8-7.7); BASOPHIL % 1.1 % (0.0-2.0); EOSINOPHIL # 0.1 TH/MM3 (0-0.4); HEMATOCRIT 35.1 % (39.0-51.0); HEMO FLAGS DIFF FINAL; LYMPH % 24.9 % (9.0-44.0); LYMPHOCYTE # 1.1 TH/MM3 (1.0-4.8); MEAN CELL VOLUME 90.3 FL (80.0-100.0); MEAN CORPUSCULAR HEMOGLOBIN 31.1 PG (27.0-34.0); MEAN CORPUSCULAR HGB CONC 34.4 % (32.0-36.0); MONO % 12.9 % (0.0-8.0); NEUT % 58.1 % (16.0-70.0); PLATELET COUNT 209 TH/MM3 (150-450); RED BLOOD COUNT 3.89 MIL/MM3 (4.50-5.90); RED CELL DISTRIBUTION WIDTH 13.2 % (11.6-17.2); WHITE BLOOD COUNT 4.2 TH/MM3 (4.0-11.0)
--- NOTE | 2016-10-10 07:54 | HHI.PR ---
Subjective Remarks No events overnight Plan for change trach to fenestrated #6 horace Objective Vitals Vital Signs Date Time Temp Pulse Resp B/P Pulse Ox O2 Delivery O2 Flow Rate FiO2 10/10/16 04:00 T-Piece 6.00 28 10/10/16 04:00 98.3 77 20 121/59 97 10/10/16 00:00 97.9 73 20 130/74 99 10/10/16 00:00 T-Piece 6.00 28 10/09/16 20:09 99.1 90 18 138/86 97 10/09/16 20:00 91 10/09/16 20:00 T-Piece 6.00 28 10/09/16 16:00 98.1 78 18 117/68 96 10/09/16 12:00 97.6 76 16 109/65 97 10/09/16 09:00 T-Piece 6.00 28 10/09/16 09:00 88 10/09/16 08:26 96 T-piece 28 10/09/16 08:00 97.8 86 16 122/72 96 I/O 10/09/16 10/09/16 10/09/16 10/10/16 10/10/16 10/10/16 06:59 14:59 22:59 06:59 14:59 22:59 Intake Total 836 ml 0 ml 1203 ml 847 ml Balance 836 ml 0 ml 1203 ml 847 ml Intake Oral 0 ml Tube Feeding 476 ml 843 ml 487 ml Tube Irrigant 360 ml Other 360 ml 360 ml # Voids 3 1 5 3 # Bowel Movements 0 0 0 1 Result Diagram: 10/10/16 0705 10/07/16 0552 Imaging Last Impressions Chest X-Ray 09/25/16 0000 Signed Impressions: Service Date/Time: September 16:19 - CONCLUSION: 1. There is basilar airspace disease. Differential diagnosis includes atelectasis and pneumonia. Findings slightly increased on the left since September 22. No pneumothorax. Bishop Fulton MD Gastrostomy Tube Placement 09/19/16 0000 Signed Impressions: Service Date/Time: Monday, September 19, 2016 16:01 - CONCLUSION: Uncomplicated gastrostomy tube placement as above. Chaitanya Rondon MD Head CT 09/17/16 0600 Signed Impressions: Service Date/Time: Saturday, September 17, 2016 04:14 - CONCLUSION: 1. Slightly evolving left basal ganglia hemorrhage with surrounding edema and mass effect similar to September 08. Right frontal ventriculostomy tube unchanged. Right ventricular size relatively stable. Bishop Fulton MD Head Magnetic Resonance Angiography 08/27/16 Signed Impressions: Service Date/Time: Saturday, August 27, 2016 16:49 - CONCLUSION: Negative MRA of the brain. Vargas Freitas MD FACR Brain MRI 08/27/16 Signed Impressions: Service Date/Time: Saturday, August 27, 2016 16:49 - CONCLUSION: 1. Large thalamic hemorrhage as described above. Extensive periventricular white matter changes are noted. There is compression of the third ventricle. Ventriculostomy is seen in the right lateral ventricle. 2. Hemorrhage does extend down the white matter tracts to the level of the right cerebral peduncle. Vargas Freitas MD FACR Objective Remarks GENERAL: 61 yo male, doesn't appear in acute distress, nonverbal. SKIN: Warm and dry. HEAD: Atraumatic. Normocephalic. EYES: Pupils equal and round. No scleral icterus. No injection or drainage. ENT: No nasal bleeding or discharge. Mucous membranes pink and moist. NECK: Trachea midline. No JVD. CARDIOVASCULAR: Regular rate and rhythm. RESPIRATORY: No accessory muscle use. Clear to auscultation. Breath sounds equal bilaterally. GASTROINTESTINAL: Abdomen soft, non-tender, nondistended. Hepatic and splenic margins not palpable. MUSCULOSKELETAL: Extremities without clubbing, cyanosis, or edema. No obvious deformities. NEUROLOGICAL: Awake and alert, not oriented, does not follow any commands. Opens eyes. Not tracking. Positive for right hemiparesis. PSYCHIATRIC: Appropriate mood and affect; insight and judgment normal. Procedures PEG A/P Problem List: (1) ICH (intracerebral hemorrhage) ICD Code: I61.9 Status: Acute (2) Hypertensive emergency ICD Code: I16.1 Status: Resolved (3) Hypokalemia ICD Code: E87.6 Status: Resolved (4) Respiratory failure ICD Code: J96.90 Status: Chronic Assessment and Plan 61-year-old male with left basal ganglia hemorrhage, intraventricular extension test post placement of ventriculostomy drain. Left basal ganglia intraparenchymal hemorrhage with encephalopathy -s/p Right frontal ventriculostomy placement 08/26 with neurosurgery, CT head revealed left basal ganglia intraparenchymal hemorrhage 3.42 cm with extension to lateral ventricle, midline shift 5 mm to the right. Goal systolic blood pressure less than 140. EEG 08/30: generalized slowing, no seizure activity. Drain removed 09/17/16. Continue blood pressure control. Hypertensive emergency, now controlled -Initially managed with Cardizem drip. Resolved. -Continue Norvasc 10 mg daily, hydralazine to 100 mg every 6 hours, lisinopril 20 po bid, lopressor 100 bid. catapres 0.3 bid. Controlled. Acute hypoxic and hypercarbic respiratory failure secondary to Staphylococcus pneumonia- tracheostomy in place, continue T piece. Pulmonary following, chest x-ray from 09/22/16 shows improvement, still shows atelectasis. Continue pulmonary toilet, s/p Levaquin October 06. Pulmonary following. Monitor. Left pinna cellulitis: Improving. Topical antibiotic. Patient already on oral Levaquin. Wound care. Pressure offloading Escherichia coli UTI: s/p treatment Failure to thrive, protein energy malnutrition: status post PEG tube placement by IR 09/19/16, continue Glucerna, tube feeds at goal. Hyperglycemia of Critical Illness-continue sliding scale with Accu-Cheks. Stable discontinue sliding scale Hypernatremia and hypokalemia: Continue free water to 400 mL every 6 hours. Repeat BMP and magnesium improved, monitor. Diarrhea: Finished Levaquin, C. difficile checked but diarrhea resolved, cont Lactinex. No leukocytosis, doubt C. difficile. Hypokalemia-replaced. Monitor and replace as need. Prophylaxis - GI - Protonix - DVT - SCD Discharge Planning Discharge planning to SNF when arranged. SSI pending Discussed with the nurse Problem Qualifiers (1) ICH (intracerebral hemorrhage): Qualified Code: I61.0 - Nontraumatic subcortical hemorrhage of left cerebral hemisphere (2) Respiratory failure: Cielo Roa MD Oct 10, 2016 07:54
[2016-10-10 07:55] LABS: BICARBONATE 29.3 MEQ/L (21.0-32.0); POTASSIUM 3.7 MEQ/L (3.5-5.1)
[2016-10-10] MEDS: LACTOBACILLUS ACIDOPHILUS 1 GM PACKET TUBE SCH ×2 (09:00→21:03)
[2016-10-10] MEDS: FAMOTIDINE 20 MG TAB NG SCH ×2 (09:28→21:02)
[2016-10-10] MEDS: METOPROLOL TARTRATE 50 MG TAB GT SCH ×2 (09:28→21:02)
[2016-10-10] MEDS: LISINOPRIL 20 MG TAB G-TUBE SCH ×2 (09:28→21:02)
[2016-10-10] MEDS: BENEPROTEIN POWDER 1 PACK G-TUBE SCH ×3 (09:29→18:19)
[2016-10-10] MEDS: ARTIFICIAL TEARS OPTH SOLN 15 ML BTL EACH EYE SCH ×3 (09:29→18:19)
[2016-10-10] MEDS: NEOMYCIN/POLYMYXIN/BACITRACIN OINT 15 GM TUBE TOPICAL SCH ×2 (09:30→21:03)
[2016-10-10] MEDS: cloNIDine HCL 0.3 MG TAB G-TUBE SCH ×2 (10:00→21:56)
[2016-10-10] MEDS: SODIUM CHLORIDE 0.9% FLUSH 5 ML FLUSH IV FLUSH SCH ×2 (12:10→21:02)
[2016-10-10] MEDS: SODIUM CHLORIDE 0.9% FLUSH 5 ML FLUSH IVF SCH (12:11)
[2016-10-10] MEDS: ENOXAPARIN SODIUM 40 MG/0.4 ML SYRINGE SQ SCH (13:34)
--- NOTE | 2016-10-10 18:28 | HHI.PR ---
Subjective Remarks Awake and On a T Bar 30 %..No fever. . Moves left arm and leg. Looked up when called out. Objective Vital Signs Date Time Temp Pulse Resp B/P Pulse Ox O2 Delivery O2 Flow Rate FiO2 10/10/16 14:43 93 10/10/16 12:00 98.7 88 20 132/79 97 10/10/16 10:52 95 T-piece 10/10/16 10:44 T-Piece 6.00 10/10/16 08:00 97.9 75 20 127/72 98 10/10/16 04:00 T-Piece 6.00 10/10/16 04:00 98.3 77 20 121/59 97 10/10/16 00:00 97.9 73 20 130/74 99 10/10/16 00:00 T-Piece 6.00 10/09/16 20:09 99.1 90 18 138/86 97 10/09/16 20:00 91 10/09/16 20:00 T-Piece 6.00 28 I/O 10/09/16 10/09/16 10/09/16 10/10/16 10/10/16 10/10/16 07:00 15:00 23:00 07:00 15:00 23:00 Intake Total 836 ml 0 ml 1203 ml 847 ml 740 ml Balance 836 ml 0 ml 1203 ml 847 ml 740 ml Intake Oral 0 ml 0 ml Tube Feeding 476 ml 843 ml 487 ml 480 ml Tube Irrigant 360 ml 60 ml Other 360 ml 360 ml 200 ml # Voids 3 1 5 3 3 # Bowel Movements 0 0 0 1 2 Result Diagram: 10/10/1670410/10/16704 Objective Remarks This is an averagely built middle-aged man who is responsive on a trach collar. He has weakness of his right extremities. HEENT: Head normocephalic. Pupils reactive. Throat is clear. NECK: Supple without venous distension. No thyromegaly or lymphadenopathy. CHEST: Decreased breath sounds at the bases .Occ wheeze HEART: The heart sounds are regular, S1-S2. No murmur. No S3. ABDOMEN: The abdomen is soft, nontender. Bowel sounds are active. No organomegaly. EXTREMITIES: Weakness of the right extremities. The patient does move his left extremities., RECTAL: Exam is deferred. Assessment and Plan Assessment and Plan IMPRESSION 1. Status post left basal ganglia intraparenchymal hemorrhage with the right frontal ventriculostomy placement. 2. Acute respiratory failure resolved. 3. Bibasilar atelectasis and pneumonia. 4. History of uncontrolled hypertension. 5. Right hemiplegia. Plan : 1. Cont on T Bar 28 %. 2. Trach suction and lavage prn. 3. Nebs bid , duoneb. 4. Up in chair as tolerated. 5. Tube feeds at 60 CC. 6. PT evaluation. 7. Change trach and use PM valve to talk Lynne White MD Oct 10, 2016 18:28
[2016-10-11] VITALS (11 sets, daily range): BP systolic 109–151; BP diastolic 63–85; PULSE 71–102; RESP 18–36; TEMP 97.5–98.9; O2SAT 94–98
[2016-10-11] MEDS: hydrALAZINE HCL 100 MG TAB G-TUBE SCH ×5 (00:53→23:53)
[2016-10-11] MEDS: FREE WATER PEG SCH ×4 (04:30→22:28)
[2016-10-11] MEDS: SENNOSIDES 8.6 MG TAB GT SCH ×2 (06:00→17:10)
--- NOTE | 2016-10-11 07:47 | HHI.PR ---
Subjective Remarks Opens eyes seems he tracking at times. No events overnight. Pulm to downgrade trach size. Objective Vitals Vital Signs Date Time Temp Pulse Resp B/P Pulse Ox O2 Delivery O2 Flow Rate FiO2 10/11/16 04:00 98.2 73 18 134/78 95 10/11/16 00:52 76 121/78 10/10/16 23:45 98.2 84 22 152/87 97 10/10/16 23:45 T-Piece 6.00 28 10/10/16 22:02 96 T-piece 6.00 28 10/10/16 20:58 99.7 101 18 135/77 96 10/10/16 20:58 T-Piece 6.00 28 10/10/16 20:09 102 10/10/16 16:00 98.2 89 18 141/82 98 10/10/16 14:43 93 10/10/16 12:00 98.7 88 20 132/79 97 10/10/16 10:52 95 T-piece 28 10/10/16 10:44 T-Piece 6.00 28 10/10/16 08:00 97.9 75 20 127/72 98 I/O 10/10/16 10/10/16 10/10/16 10/11/16 10/11/16 10/11/16 07:00 15:00 23:00 07:00 15:00 23:00 Intake Total 847 ml 740 ml 1069 ml Balance 847 ml 740 ml 1069 ml Intake Oral 0 ml Tube Feeding 487 ml 480 ml 669 ml Tube Irrigant 60 ml Other 360 ml 200 ml 400 ml # Voids 3 3 2 # Bowel Movements 1 2 2 Result Diagram: 10/10/16 0705 10/10/16 0705 Imaging Last Impressions Chest X-Ray 09/25/16 0000 Signed Impressions: Service Date/Time: September 16:19 - CONCLUSION: 1. There is basilar airspace disease. Differential diagnosis includes atelectasis and pneumonia. Findings slightly increased on the left since September 22. No pneumothorax. Bishop Fulton MD Gastrostomy Tube Placement 09/19/16 0000 Signed Impressions: Service Date/Time: Monday, September 19, 2016 16:01 - CONCLUSION: Uncomplicated gastrostomy tube placement as above. Chaitanya Rondon MD Head CT 09/17/16 0600 Signed Impressions: Service Date/Time: Saturday, September 17, 2016 04:14 - CONCLUSION: 1. Slightly evolving left basal ganglia hemorrhage with surrounding edema and mass effect similar to September 08. Right frontal ventriculostomy tube unchanged. Right ventricular size relatively stable. Bishop Fulton MD Head Magnetic Resonance Angiography 08/27/16 0000 Signed Impressions: Service Date/Time: Saturday, August 27, 2016 16:49 - CONCLUSION: Negative MRA of the brain. Vargas Freitas MD FACR Brain MRI 08/27/16 0000 Signed Impressions: Service Date/Time: Saturday, August 27, 2016 16:49 - CONCLUSION: 1. Large thalamic hemorrhage as described above. Extensive periventricular white matter changes are noted. There is compression of the third ventricle. Ventriculostomy is seen in the right lateral ventricle. 2. Hemorrhage does extend down the white matter tracts to the level of the right cerebral peduncle. Vargas Freitas MD FACR Objective Remarks GENERAL: 61 yo male, doesn't appear in acute distress, nonverbal. SKIN: Warm and dry. HEAD: Atraumatic. Normocephalic. EYES: Pupils equal and round. No scleral icterus. No injection or drainage. ENT: No nasal bleeding or discharge. Mucous membranes pink and moist. NECK: Trachea midline. No JVD. CARDIOVASCULAR: Regular rate and rhythm. RESPIRATORY: No accessory muscle use. Clear to auscultation. Breath sounds equal bilaterally. GASTROINTESTINAL: Abdomen soft, non-tender, nondistended. Hepatic and splenic margins not palpable. MUSCULOSKELETAL: Extremities without clubbing, cyanosis, or edema. No obvious deformities. NEUROLOGICAL: Awake and alert, not oriented, does not follow any commands. Opens eyes. Not tracking. Positive for right hemiparesis. PSYCHIATRIC: Appropriate mood and affect; insight and judgment normal. Procedures PEG A/P Problem List: (1) ICH (intracerebral hemorrhage) ICD Code: I61.9 Status: Acute (2) Hypertensive emergency ICD Code: I16.1 Status: Resolved (3) Hypokalemia ICD Code: E87.6 Status: Resolved (4) Respiratory failure ICD Code: J96.90 Status: Chronic Assessment and Plan 61-year-old male with left basal ganglia hemorrhage, intraventricular extension test post placement of ventriculostomy drain. Left basal ganglia intraparenchymal hemorrhage with encephalopathy -s/p Right frontal ventriculostomy placement 08/26 with neurosurgery, CT head revealed left basal ganglia intraparenchymal hemorrhage 3.42 cm with extension to lateral ventricle, midline shift 5 mm to the right. Goal systolic blood pressure less than 140. EEG 08/30: generalized slowing, no seizure activity. Drain removed 09/17/16. Continue blood pressure control. Hypertensive emergency, now controlled -Initially managed with Cardizem drip. Resolved. -Continue Norvasc 10 mg daily, hydralazine to 100 mg every 6 hours, lisinopril 20 po bid, lopressor 100 bid. catapres 0.3 bid. Controlled. Acute hypoxic and hypercarbic respiratory failure secondary to Staphylococcus pneumonia- tracheostomy in place, continue T piece. Pulmonary following, chest x-ray from 09/22/16 shows improvement, still shows atelectasis. Continue pulmonary toilet, s/p Levaquin October 06. Pulmonary following. Monitor. Downgrade trach size per pulm Left pinna cellulitis: Improving. Topical antibiotic. Patient already on oral Levaquin. Wound care. Pressure offloading Escherichia coli UTI: s/p treatment Failure to thrive, protein energy malnutrition: status post PEG tube placement by IR 09/19/16, continue Glucerna, tube feeds at goal. Hyperglycemia of Critical Illness-continue sliding scale with Accu-Cheks. Stable discontinue sliding scale Hypernatremia and hypokalemia: Continue free water to 400 mL every 6 hours. Repeat BMP and magnesium improved, monitor. Diarrhea: Finished Levaquin, C. difficile checked but diarrhea resolved, cont Lactinex. No leukocytosis, doubt C. difficile. Hypokalemia-replaced. Monitor and replace as need. Prophylaxis - GI - Protonix - DVT - SCD Discharge Planning Discharge planning to SNF when arranged. SSI pending Discussed with the nurse Problem Qualifiers (1) ICH (intracerebral hemorrhage): Qualified Code: I61.0 - Nontraumatic subcortical hemorrhage of left cerebral hemisphere (2) Respiratory failure: Cielo Roa MD Oct 11, 2016 07:47
[2016-10-11] MEDS ORDERED: FREE WATER G-TUBE SCH (09:00)
[2016-10-11] MEDS: LACTOBACILLUS ACIDOPHILUS 1 GM PACKET TUBE SCH ×2 (10:16→20:58)
[2016-10-11] MEDS: ARTIFICIAL TEARS OPTH SOLN 15 ML BTL EACH EYE SCH ×3 (10:16→17:10)
[2016-10-11] MEDS: cloNIDine HCL 0.3 MG TAB G-TUBE SCH ×2 (10:16→22:28)
[2016-10-11] MEDS: BENEPROTEIN POWDER 1 PACK G-TUBE SCH ×3 (10:16→17:10)
[2016-10-11] MEDS: METOPROLOL TARTRATE 50 MG TAB GT SCH ×2 (10:16→20:56)
[2016-10-11] MEDS: FAMOTIDINE 20 MG TAB NG SCH ×2 (10:16→20:56)
[2016-10-11] MEDS: NEOMYCIN/POLYMYXIN/BACITRACIN OINT 15 GM TUBE TOPICAL SCH ×2 (10:16→20:57)
[2016-10-11] MEDS: SODIUM CHLORIDE 0.9% FLUSH 5 ML FLUSH IVF SCH (10:17)
[2016-10-11] MEDS: SODIUM CHLORIDE 0.9% FLUSH 5 ML FLUSH IV FLUSH SCH ×2 (10:17→20:57)
[2016-10-11] MEDS: LISINOPRIL 20 MG TAB G-TUBE SCH ×2 (10:17→20:56)
--- NOTE | 2016-10-11 12:42 | HHI.PR ---
Subjective Remarks Awake and On a T Bar 28 %. No change in Neuro. . Moves left arm and leg. Looked up when called out. Objective Vital Signs Date Time Temp Pulse Resp B/P Pulse Ox O2 Delivery O2 Flow Rate FiO2 10/11/16 12:00 97.9 71 20 113/69 96 10/11/16 10:51 T-Piece 6.00 28 10/11/16 08:00 97.5 87 22 151/79 98 10/11/16 04:00 98.2 73 18 134/78 95 10/11/16 00:52 76 121/78 10/10/16 23:45 98.2 84 22 152/87 97 10/10/16 23:45 T-Piece 6.00 28 10/10/16 22:02 96 T-piece 6.00 28 10/10/16 20:58 99.7 101 18 135/77 96 10/10/16 20:58 T-Piece 6.00 28 10/10/16 20:09 102 10/10/16 16:00 98.2 89 18 141/82 98 10/10/16 14:43 93 I/O 10/10/16 10/10/16 10/10/16 10/11/16 10/11/16 10/11/16 07:00 15:00 23:00 07:00 15:00 23:00 Intake Total 847 ml 740 ml 1069 ml Balance 847 ml 740 ml 1069 ml Intake Oral 0 ml Tube Feeding 487 ml 480 ml 669 ml Tube Irrigant 60 ml Other 360 ml 200 ml 400 ml # Voids 3 3 2 # Bowel Movements 1 2 2 Result Diagram: 10/10/1670410/10/16704 Objective Remarks This is an averagely built middle-aged man who is responsive on a trach collar. He has weakness of his right extremities. HEENT: Head normocephalic. Pupils reactive. Throat is clear. NECK: Supple without venous distension. No thyromegaly or lymphadenopathy. CHEST: Decreased breath sounds at the bases .No wheeze HEART: The heart sounds are regular, S1-S2. No murmur. No S3. ABDOMEN: The abdomen is soft, nontender. Bowel sounds are active. No organomegaly. EXTREMITIES: Weakness of the right extremities. The patient does move his left extremities., RECTAL: Exam is deferred. Assessment and Plan Assessment and Plan IMPRESSION 1. Status post left basal ganglia intraparenchymal hemorrhage with the right frontal ventriculostomy placement. 2. Acute respiratory failure resolved. 3. Bibasilar atelectasis and pneumonia. 4. History of uncontrolled hypertension. 5. Right hemiplegia. Plan : 1. Cont on T Bar 28 %. 2. Trach suction and lavage prn. 3. Nebs bid , duoneb. 4. Use PM valve if able to respond 5. Tube feeds at 60 CC. 6. PT evaluation. 7. Change trach and use PM valve to talk Lynne White MD Oct 11, 2016 12:42
[2016-10-11] MEDS: ENOXAPARIN SODIUM 40 MG/0.4 ML SYRINGE SQ SCH (17:10)
[2016-10-12] VITALS (11 sets, daily range): BP systolic 112–155; BP diastolic 65–84; PULSE 74–92; RESP 16–22; TEMP 97.7–98.8; O2SAT 94–99
[2016-10-12] MEDS: FREE WATER PEG SCH ×4 (04:00→22:00)
[2016-10-12] MEDS: hydrALAZINE HCL 100 MG TAB G-TUBE SCH ×3 (06:48→16:48)
[2016-10-12] MEDS: SENNOSIDES 8.6 MG TAB GT SCH ×2 (06:48→16:48)
[2016-10-12] MEDS: FAMOTIDINE 20 MG TAB NG SCH ×2 (09:49→20:42)
[2016-10-12] MEDS: METOPROLOL TARTRATE 50 MG TAB GT SCH ×2 (09:49→20:42)
[2016-10-12] MEDS: LACTOBACILLUS ACIDOPHILUS 1 GM PACKET TUBE SCH ×2 (09:49→20:42)
[2016-10-12] MEDS: SODIUM CHLORIDE 0.9% FLUSH 5 ML FLUSH IVF SCH (09:50)
[2016-10-12] MEDS: NEOMYCIN/POLYMYXIN/BACITRACIN OINT 15 GM TUBE TOPICAL SCH ×2 (09:50→20:43)
[2016-10-12] MEDS: BENEPROTEIN POWDER 1 PACK G-TUBE SCH ×3 (09:50→16:48)
[2016-10-12] MEDS: cloNIDine HCL 0.3 MG TAB G-TUBE SCH ×2 (09:50→23:07)
[2016-10-12] MEDS: LISINOPRIL 20 MG TAB G-TUBE SCH ×2 (09:50→20:42)
[2016-10-12] MEDS: ARTIFICIAL TEARS OPTH SOLN 15 ML BTL EACH EYE SCH ×3 (09:50→16:48)
[2016-10-12] MEDS: SODIUM CHLORIDE 0.9% FLUSH 5 ML FLUSH IV FLUSH SCH ×2 (09:50→20:43)
--- NOTE | 2016-10-12 13:25 | HHI.PR ---
Subjective Remarks In bed. Opens eyes but doesn't track. No events overnight. Objective Vitals Vital Signs Date Time Temp Pulse Resp B/P Pulse Ox O2 Delivery O2 Flow Rate FiO2 10/12/16 12:00 97 Trach Collar 6.00 Humidified 10/12/16 12:00 97.9 76 22 112/65 97 10/12/16 10:09 T-Piece 6.00 28 10/12/16 10:09 92 10/12/16 09:42 97.7 85 18 140/77 97 10/12/16 04:00 98.8 79 16 135/73 96 10/12/16 00:00 98.7 74 16 121/74 96 10/11/16 22:27 82 143/85 10/11/16 21:25 T-piece 6.00 28 10/11/16 20:04 87 10/11/16 20:00 T-Piece 5.00 28 10/11/16 20:00 98.5 85 20 130/80 95 10/11/16 16:45 96 T-piece 5.00 28 10/11/16 16:00 97.9 71 20 113/69 96 10/11/16 14:39 83 10/11/16 13:56 97 T-piece 28 I/O 10/11/16 10/11/16 10/11/16 10/12/16 10/12/16 10/12/16 07:00 15:00 23:00 07:00 15:00 23:00 Intake Total 799 ml 721 ml Balance 799 ml 721 ml Intake Oral 0 ml 0 ml Tube Feeding 399 ml 321 ml Other 400 ml 400 ml # Voids 2 1 1 # Bowel Movements 1 0 0 Result Diagram: 10/10/16 0710/10/16 0705 Imaging Last Impressions Chest X-Ray 09/25/16 0000 Signed Impressions: Service Date/Time: September 16:19 - CONCLUSION: 1. There is basilar airspace disease. Differential diagnosis includes atelectasis and pneumonia. Findings slightly increased on the left since September 22. No pneumothorax. Bishop Fulton MD Gastrostomy Tube Placement 09/19/16 0000 Signed Impressions: Service Date/Time: Monday, September 19, 2016 16:01 - CONCLUSION: Uncomplicated gastrostomy tube placement as above. Chaitanya Rondon MD Head CT 09/17/16 0600 Signed Impressions: Service Date/Time: Saturday, September 17, 2016 04:14 - CONCLUSION: 1. Slightly evolving left basal ganglia hemorrhage with surrounding edema and mass effect similar to September 08. Right frontal ventriculostomy tube unchanged. Right ventricular size relatively stable. Bishop Fulton MD Head Magnetic Resonance Angiography 08/27/16 0000 Signed Impressions: Service Date/Time: Saturday, August 27, 2016 16:49 - CONCLUSION: Negative MRA of the brain. Vargas Freitas MD FACR Brain MRI 08/27/16 0000 Signed Impressions: Service Date/Time: Saturday, August 27, 2016 16:49 - CONCLUSION: 1. Large thalamic hemorrhage as described above. Extensive periventricular white matter changes are noted. There is compression of the third ventricle. Ventriculostomy is seen in the right lateral ventricle. 2. Hemorrhage does extend down the white matter tracts to the level of the right cerebral peduncle. Vargas Freitas MD FACR Objective Remarks GENERAL: 61 yo male, doesn't appear in acute distress, nonverbal. SKIN: Warm and dry. HEAD: Atraumatic. Normocephalic. EYES: Pupils equal and round. No scleral icterus. No injection or drainage. ENT: No nasal bleeding or discharge. Mucous membranes pink and moist. NECK: Trachea midline. No JVD. CARDIOVASCULAR: Regular rate and rhythm. RESPIRATORY: No accessory muscle use. Clear to auscultation. Breath sounds equal bilaterally. GASTROINTESTINAL: Abdomen soft, non-tender, nondistended. Hepatic and splenic margins not palpable. MUSCULOSKELETAL: Extremities without clubbing, cyanosis, or edema. No obvious deformities. NEUROLOGICAL: Awake and alert, not oriented, does not follow any commands. Opens eyes. Not tracking. Positive for right hemiparesis. PSYCHIATRIC: Appropriate mood and affect; insight and judgment normal. Procedures PEG A/P Problem List: (1) ICH (intracerebral hemorrhage) ICD Code: I61.9 Status: Acute (2) Hypertensive emergency ICD Code: I16.1 Status: Resolved (3) Hypokalemia ICD Code: E87.6 Status: Resolved (4) Respiratory failure ICD Code: J96.90 Status: Chronic Assessment and Plan 61-year-old male with left basal ganglia hemorrhage, intraventricular extension test post placement of ventriculostomy drain. Left basal ganglia intraparenchymal hemorrhage with encephalopathy -s/p Right frontal ventriculostomy placement 08/26 with neurosurgery, CT head revealed left basal ganglia intraparenchymal hemorrhage 3.42 cm with extension to lateral ventricle, midline shift 5 mm to the right. Goal systolic blood pressure less than 140. EEG 08/30: generalized slowing, no seizure activity. Drain removed 09/17/16. Continue blood pressure control. Hypertensive emergency, now controlled -Initially managed with Cardizem drip. Resolved. -Continue Norvasc 10 mg daily, hydralazine to 100 mg every 6 hours, lisinopril 20 po bid, lopressor 100 bid. catapres 0.3 bid. Controlled. Acute hypoxic and hypercarbic respiratory failure secondary to Staphylococcus pneumonia- tracheostomy in place, continue T piece. Pulmonary following, chest x-ray from 09/22/16 shows improvement, still shows atelectasis. Continue pulmonary toilet, s/p Levaquin October 06. Pulmonary following. Monitor. Downgrade trach size per pulm Left pinna cellulitis: Improving. Topical antibiotic. Patient already on oral Levaquin. Wound care. Pressure offloading Escherichia coli UTI: s/p treatment Failure to thrive, protein energy malnutrition: status post PEG tube placement by IR 09/19/16, continue Glucerna, tube feeds at goal. Hyperglycemia of Critical Illness-continue sliding scale with Accu-Cheks. Stable discontinue sliding scale Hypernatremia and hypokalemia: Continue free water to 400 mL every 6 hours. Repeat BMP and magnesium improved, monitor. Diarrhea: Finished Levaquin, C. difficile checked but diarrhea resolved, cont Lactinex. No leukocytosis, doubt C. difficile. Hypokalemia-replaced. Monitor and replace as need. Prophylaxis - GI - Protonix - DVT - SCD Discharge Planning Discharge planning to SNF when arranged. SSI pending Discussed with the nurse Problem Qualifiers (1) ICH (intracerebral hemorrhage): Qualified Code: I61.0 - Nontraumatic subcortical hemorrhage of left cerebral hemisphere (2) Respiratory failure: Cielo Roa MD Oct 12, 2016 13:25
[2016-10-12] MEDS: ENOXAPARIN SODIUM 40 MG/0.4 ML SYRINGE SQ SCH (14:35)
[2016-10-13] VITALS (9 sets, daily range): BP systolic 99–142; BP diastolic 56–79; PULSE 7–86; RESP 16–18; TEMP 96.6–99.2; O2SAT 97–99
[2016-10-13] MEDS: FREE WATER PEG SCH ×4 (04:30→21:39)
[2016-10-13] MEDS: SENNOSIDES 8.6 MG TAB GT SCH ×2 (06:46→17:09)
[2016-10-13] MEDS: hydrALAZINE HCL 100 MG TAB G-TUBE SCH ×5 (06:48→23:56)
[2016-10-13] MEDS: SODIUM CHLORIDE 0.9% FLUSH 5 ML FLUSH IVF SCH (09:00)
[2016-10-13] MEDS: LACTOBACILLUS ACIDOPHILUS 1 GM PACKET TUBE SCH ×2 (09:00→20:28)
[2016-10-13] MEDS: BENEPROTEIN POWDER 1 PACK G-TUBE SCH ×3 (09:00→17:09)
[2016-10-13] MEDS: SODIUM CHLORIDE 0.9% FLUSH 5 ML FLUSH IV FLUSH SCH ×2 (09:00→20:28)
[2016-10-13] MEDS: FAMOTIDINE 20 MG TAB NG SCH ×2 (09:58→20:28)
[2016-10-13] MEDS: METOPROLOL TARTRATE 50 MG TAB GT SCH ×2 (09:58→20:27)
[2016-10-13] MEDS: LISINOPRIL 20 MG TAB G-TUBE SCH ×2 (09:58→20:27)
[2016-10-13] MEDS: ARTIFICIAL TEARS OPTH SOLN 15 ML BTL EACH EYE SCH ×3 (10:01→17:09)
[2016-10-13] MEDS: NEOMYCIN/POLYMYXIN/BACITRACIN OINT 15 GM TUBE TOPICAL SCH ×2 (10:01→20:28)
[2016-10-13] MEDS: cloNIDine HCL 0.3 MG TAB G-TUBE SCH ×2 (11:31→21:39)
[2016-10-13] MEDS: ENOXAPARIN SODIUM 40 MG/0.4 ML SYRINGE SQ SCH (13:39)
--- NOTE | 2016-10-13 14:04 | HHI.PR ---
Subjective Remarks Appears in nad. No events overnight. Per nurse he is tracking at times. VSS Objective Vitals Vital Signs Date Time Temp Pulse Resp B/P Pulse Ox O2 Delivery O2 Flow Rate FiO2 10/13/16 12:00 97.0 83 18 142/79 97 10/13/16 08:00 97.3 82 18 131/62 97 10/13/16 06:45 72 127/73 10/13/16 04:00 96.6 74 16 119/69 98 10/13/16 00:55 70 99/56 10/13/16 00:00 97.6 78 16 117/72 97 10/12/16 23:07 80 138/84 10/12/16 21:33 96 T-piece 6.00 28 10/12/16 20:00 98.1 85 18 142/79 99 10/12/16 20:00 85 10/12/16 20:00 T-Piece 6.00 28 10/12/16 17:26 94 T-piece 5.00 28 10/12/16 16:00 98.3 86 20 155/72 98 10/12/16 16:00 98 Trach Collar 6.00 Humidified 10/12/16 14:10 98 T-piece 28 I/O 10/12/16 10/12/16 10/12/16 10/13/16 10/13/16 10/13/16 07:00 15:00 23:00 07:00 15:00 23:00 Intake Total 721 ml 2425 ml 771 ml Output Total 350 ml Balance 721 ml 2425 ml 421 ml Intake Oral 0 ml 0 ml 0 ml Tube Feeding 321 ml 2425 ml 371 ml Other 400 ml 400 ml Output Urine Total 350 ml # Voids 1 1 1 # Bowel Movements 0 0 Result Diagram: 10/10/16 0705 10/10/16 0705 Imaging Last Impressions Chest X-Ray 09/25/16 0000 Signed Impressions: Service Date/Time: September 16:19 - CONCLUSION: 1. There is basilar airspace disease. Differential diagnosis includes atelectasis and pneumonia. Findings slightly increased on the left since September 22. No pneumothorax. Bishop Fulton MD Gastrostomy Tube Placement 09/19/16 0000 Signed Impressions: Service Date/Time: Monday, September 19, 2016 16:01 - CONCLUSION: Uncomplicated gastrostomy tube placement as above. Chaitanya Rondon MD Head CT 09/17/16 0600 Signed Impressions: Service Date/Time: Saturday, September 17, 2016 04:14 - CONCLUSION: 1. Slightly evolving left basal ganglia hemorrhage with surrounding edema and mass effect similar to September 08. Right frontal ventriculostomy tube unchanged. Right ventricular size relatively stable. Bishop Fulton MD Head Magnetic Resonance Angiography 08/27/16 0000 Signed Impressions: Service Date/Time: Saturday, August 27, 2016 16:49 - CONCLUSION: Negative MRA of the brain. Vargas Freitas MD FACR Brain MRI 08/27/16 0000 Signed Impressions: Service Date/Time: Saturday, August 27, 2016 16:49 - CONCLUSION: 1. Large thalamic hemorrhage as described above. Extensive periventricular white matter changes are noted. There is compression of the third ventricle. Ventriculostomy is seen in the right lateral ventricle. 2. Hemorrhage does extend down the white matter tracts to the level of the right cerebral peduncle. Vargas Freitas MD FACR Objective Remarks GENERAL: 61 yo male, doesn't appear in acute distress, nonverbal. SKIN: Warm and dry. HEAD: Atraumatic. Normocephalic. EYES: Pupils equal and round. No scleral icterus. No injection or drainage. ENT: No nasal bleeding or discharge. Mucous membranes pink and moist. NECK: Trachea midline. No JVD. CARDIOVASCULAR: Regular rate and rhythm. RESPIRATORY: No accessory muscle use. Clear to auscultation. Breath sounds equal bilaterally. GASTROINTESTINAL: Abdomen soft, non-tender, nondistended. Hepatic and splenic margins not palpable. MUSCULOSKELETAL: Extremities without clubbing, cyanosis, or edema. No obvious deformities. NEUROLOGICAL: Awake and alert, not oriented, does not follow any commands. Opens eyes. Not tracking. Positive for right hemiparesis. PSYCHIATRIC: Appropriate mood and affect; insight and judgment normal. Procedures PEG A/P Problem List: (1) ICH (intracerebral hemorrhage) ICD Code: I61.9 Status: Acute (2) Hypertensive emergency ICD Code: I16.1 Status: Resolved (3) Hypokalemia ICD Code: E87.6 Status: Resolved (4) Respiratory failure ICD Code: J96.90 Status: Chronic Assessment and Plan 61-year-old male with left basal ganglia hemorrhage, intraventricular extension test post placement of ventriculostomy drain. Left basal ganglia intraparenchymal hemorrhage with encephalopathy -s/p Right frontal ventriculostomy placement 08/26 with neurosurgery, CT head revealed left basal ganglia intraparenchymal hemorrhage 3.42 cm with extension to lateral ventricle, midline shift 5 mm to the right. Goal systolic blood pressure less than 140. EEG 08/30: generalized slowing, no seizure activity. Drain removed 09/17/16. Continue blood pressure control. Hypertensive emergency, now controlled -Initially managed with Cardizem drip. Resolved. -Continue Norvasc 10 mg daily, hydralazine to 100 mg every 6 hours, lisinopril 20 po bid, lopressor 100 bid. catapres 0.3 bid. Controlled. Acute hypoxic and hypercarbic respiratory failure secondary to Staphylococcus pneumonia- tracheostomy in place, continue T piece. Pulmonary following, chest x-ray from 09/22/16 shows improvement, still shows atelectasis. Continue pulmonary toilet, s/p Levaquin October 06. Pulmonary following. Monitor. Downgrade trach size per pulm Left pinna cellulitis: Improving. Topical antibiotic. Patient already on oral Levaquin. Wound care. Pressure offloading Escherichia coli UTI: s/p treatment Failure to thrive, protein energy malnutrition: status post PEG tube placement by IR 09/19/16, continue Glucerna, tube feeds at goal. Hyperglycemia of Critical Illness-continue sliding scale with Accu-Cheks. Stable discontinue sliding scale Hypernatremia and hypokalemia: Continue free water to 400 mL every 6 hours. Repeat BMP and magnesium improved, monitor. Diarrhea: Finished Levaquin, C. difficile checked but diarrhea resolved, cont Lactinex. No leukocytosis, doubt C. difficile. Hypokalemia-replaced. Monitor and replace as need. Prophylaxis - GI - Protonix - DVT - SCD Discharge Planning Discharge planning to SNF when arranged. SSI pending Discussed with the nurse Problem Qualifiers (1) ICH (intracerebral hemorrhage): Qualified Code: I61.0 - Nontraumatic subcortical hemorrhage of left cerebral hemisphere (2) Respiratory failure: Cielo Roa MD Oct 13, 2016 14:04
--- NOTE | 2016-10-13 17:54 | PD.PN.STU ---
Subjective Remarks Can follow simple commands with grabbing left arm and lifting left leg. Will look up when call out name. Objective Vitals Vital Signs Date Time Temp Pulse Resp B/P Pulse Ox O2 Delivery O2 Flow Rate FiO2 10/13/16 12:00 97.0 83 18 142/79 97 10/13/16 08:00 97.3 82 18 131/62 97 10/13/16 08:00 76 10/13/16 07:00 Trach Collar 28 10/13/16 06:45 72 127/73 10/13/16 04:00 96.6 74 16 119/69 98 10/13/16 00:55 70 99/56 10/13/16 00:00 97.6 78 16 117/72 97 10/12/16 23:07 80 138/84 10/12/16 21:33 96 T-piece 6.00 28 10/12/16 20:00 98.1 85 18 142/79 99 10/12/16 20:00 85 10/12/16 20:00 T-Piece 6.00 28 I/O 10/12/16 10/12/16 10/12/16 10/13/16 10/13/16 10/13/16 07:00 15:00 23:00 07:00 15:00 23:00 Intake Total 721 ml 2425 ml 771 ml Output Total 350 ml Balance 721 ml 2425 ml 421 ml Intake Oral 0 ml 0 ml 0 ml Tube Feeding 321 ml 2425 ml 371 ml Other 400 ml 400 ml Output Urine Total 350 ml # Voids 1 1 1 # Bowel Movements 0 0 Result Diagram: 10/10/1670410/10/16704 Objective Remarks This is an averagely built middle-aged man who is responsive on a trach collar. He has weakness of his right extremities. HEENT: Head normocephalic. Pupils reactive. Throat is clear. NECK: Supple without venous distension. No thyromegaly or lymphadenopathy. CHEST: Decreased breath sounds at the bases. occasional wheeze throughout HEART: The heart sounds are regular, S1-S2. No murmur. No S3. ABDOMEN: The abdomen is soft, nontender. Bowel sounds are active. No organomegaly. EXTREMITIES: Weakness of the right extremities. The patient does move his left extremities., RECTAL: Exam is deferred. A/P Assessment and Plan IMPRESSION 1. Status post left basal ganglia intraparenchymal hemorrhage with the right frontal ventriculostomy placement. 2. Acute respiratory failure resolved. 3. Bibasilar atelectasis and pneumonia. 4. History of uncontrolled hypertension. 5. Right hemiplegia. Plan : 1. Cont on T Bar 28 %. 2. Trach suction and lavage prn. 3. Nebs bid , duoneb. 4. Change trach and use PM valve to talk 5. Continue Tube feeds at 60 CC. 6. PT evaluation. Eileen Castillo M3 Oct 13, 2016 17:54
--- NOTE | 2016-10-13 19:21 | HHI.PR ---
Subjective Remarks Awake and On a T Bar 28 %. Follows command but weak on right . . Moves left arm and leg. Looked up and smiling Objective Vital Signs Date Time Temp Pulse Resp B/P Pulse Ox O2 Delivery O2 Flow Rate FiO2 10/13/16 16:00 98.0 86 18 125/71 97 10/13/16 12:00 97.0 83 18 142/79 97 10/13/16 08:00 97.3 82 18 131/62 97 10/13/16 08:00 76 10/13/16 07:00 Trach Collar 28 10/13/16 06:45 72 127/73 10/13/16 04:00 96.6 74 16 119/69 98 10/13/16 00:55 70 99/56 10/13/16 00:00 97.6 78 16 117/72 97 10/12/16 23:07 80 138/84 10/12/16 21:33 96 T-piece 6.00 28 10/12/16 20:00 98.1 85 18 142/79 99 10/12/16 20:00 85 10/12/16 20:00 T-Piece 6.00 28 I/O 10/12/16 10/12/16 10/12/16 10/13/16 10/13/16 10/13/16 07:00 15:00 23:00 07:00 15:00 23:00 Intake Total 721 ml 2425 ml 771 ml Output Total 350 ml 800 ml Balance 721 ml 2425 ml 421 ml -800 ml Intake Oral 0 ml 0 ml 0 ml Tube Feeding 321 ml 2425 ml 371 ml Other 400 ml 400 ml Output Urine Total 350 ml 800 ml # Voids 1 1 1 # Bowel Movements 0 0 1 Result Diagram: 10/10/1670410/10/16704 Objective Remarks This is an averagely built middle-aged man who is responsive on a trach collar. He has weakness of his right extremities. HEENT: Head normocephalic. Pupils reactive. Throat is clear. NECK: Supple without venous distension. No thyromegaly or lymphadenopathy. CHEST: Decreased breath sounds at the bases . HEART: The heart sounds are regular, S1-S2. No murmur. No S3. ABDOMEN: The abdomen is soft, nontender. Bowel sounds are active. No organomegaly. EXTREMITIES: Weakness of the right extremities. The patient does move his left extremities., RECTAL: Exam is deferred. Assessment and Plan Assessment and Plan IMPRESSION 1. Status post left basal ganglia intraparenchymal hemorrhage with the right frontal ventriculostomy placement. 2. Acute respiratory failure resolved. 3. Bibasilar atelectasis and pneumonia. 4. History of uncontrolled hypertension. 5. Right hemiplegia. Plan : 1. Cont on T Bar 28 %. 2. Trach suction and lavage prn. 3. Nebs bid , duoneb. 4. Use PM valve prn 5. Tube feeds at 60 CC. 6. PT evaluation. 7. CBC,BMP Lynne White MD Oct 13, 2016 19:21
[2016-10-14] VITALS (9 sets, daily range): BP systolic 120–152; BP diastolic 66–90; PULSE 75–111; RESP 18–22; TEMP 97–98.5; O2SAT 96–98
[2016-10-14] MEDS: FREE WATER PEG SCH ×4 (04:00→22:34)
[2016-10-14] MEDS: SENNOSIDES 8.6 MG TAB GT SCH ×2 (05:24→18:00)
[2016-10-14] MEDS: hydrALAZINE HCL 100 MG TAB G-TUBE SCH ×3 (05:24→18:00)
--- NOTE | 2016-10-14 08:42 | HHI.PR ---
Subjective Remarks Nonverbal, no acute distress, mental status similar to previous. Discussed with RN, no acute events overnight. Objective Vitals Vital Signs Date Time Temp Pulse Resp B/P Pulse Ox O2 Delivery O2 Flow Rate FiO2 10/14/16 04:00 97.5 76 18 148/79 98 10/14/16 04:00 Trach Collar 6.00 28 10/14/16 00:11 98.5 75 18 120/80 98 10/14/16 00:00 Trach Collar 6.00 28 10/13/16 21:47 99 T-piece 6.00 28 10/13/16 20:00 83 10/13/16 20:00 Trach Collar 6.00 28 10/13/16 20:00 99.2 81 18 132/78 99 10/13/16 16:00 98.0 86 18 125/71 97 10/13/16 12:00 97.0 83 18 142/79 97 I/O 10/13/16 10/13/16 10/13/16 10/14/16 10/14/16 10/14/16 07:00 15:00 23:00 07:00 15:00 23:00 Intake Total 771 ml 1231 ml 1024 ml Output Total 350 ml 800 ml 700 ml Balance 421 ml -800 ml 531 ml 1024 ml Intake Oral 0 ml Tube Feeding 371 ml 671 ml 464 ml Other 400 ml 560 ml 560 ml Output Urine Total 350 ml 800 ml 700 ml # Voids 1 2 2 # Bowel Movements 1 0 0 Result Diagram: 10/10/1670410/10/16704 Objective Remarks GENERAL: Well-developed well-nourished. In no acute distress. SKIN: Warm and dry. No lesions noted. HEENT: Normocephalic. Pupils equal and round and reactive to light. Mucous membranes pink and moist. Trach in place. CARDIOVASCULAR: Regular rate and rhythm. No murmur appreciated. RESPIRATORY: No accessory muscle use. Clear to auscultation bilaterally. PEG in place. GASTROINTESTINAL: Abdomen soft, non-tender, nondistended. Bowel sounds x4. MUSCULOSKELETAL: No obvious deformities. No clubbing or cyanosis. No edema. NEUROLOGICAL: Awake and alert. Eyes do not track. Does squeeze fingers on left hand and move left lower extremity to command. Does not move right side. Procedures PEG A/P Problem List: (1) ICH (intracerebral hemorrhage) ICD Code: I61.9 Status: Acute (2) Hypertensive emergency ICD Code: I16.1 Status: Resolved (3) Hypokalemia ICD Code: E87.6 Status: Resolved (4) Respiratory failure ICD Code: J96.90 Status: Chronic Assessment and Plan 61-year-old male with left basal ganglia hemorrhage, intraventricular extension test post placement of ventriculostomy drain. Left basal ganglia intraparenchymal hemorrhage with encephalopathy -s/p Right frontal ventriculostomy placement 08/26 with neurosurgery, CT head revealed left basal ganglia intraparenchymal hemorrhage 3.42 cm with extension to lateral ventricle, midline shift 5 mm to the right. Goal systolic blood pressure less than 140. EEG 08/30: generalized slowing, no seizure activity. Drain removed 09/17/16. Continue blood pressure control. Hypertensive emergency -Initially managed with Cardizem drip. Resolved. -Continue Norvasc 10 mg daily, hydralazine to 100 mg every 6 hours, lisinopril 20 po bid, lopressor 100 bid. catapres 0.3 bid. Controlled. Acute hypoxic and hypercarbic respiratory failure- secondary to Staphylococcus pneumonia, tracheostomy in place, continue T piece. Pulmonary following, chest x-ray from 09/22/16 shows improvement, still shows atelectasis. Continue pulmonary toilet. S/P course of Levaquin, completed 10/06. Pulmonary following. Left pinna cellulitis: Improving. Topical antibiotic. Patient already on oral Levaquin. Wound care. Pressure offloading Escherichia coli UTI: s/p treatment Failure to thrive, protein energy malnutrition: status post PEG tube placement by IR 09/19/16, continue Glucerna, tube feeds at goal. Hyperglycemia of Critical Illness-continue sliding scale with Accu-Cheks. Stable, discontinued sliding scale Hypernatremia and hypokalemia: Continue free water to 400 mL every 6 hours. Repeat BMP and magnesium improved, monitor. Diarrhea: , Likely antibiotic associated while patient was on Levaquin. No further loose stools to check C. difficile and no leukocytosis, doubt C. difficile. Continue Lactinex. Prophylaxis - GI - Protonix - DVT - SCD Discharge Planning Discharge planning to SNF when arranged. Problem Qualifiers (1) ICH (intracerebral hemorrhage): Qualified Code: I61.0 - Nontraumatic subcortical hemorrhage of left cerebral hemisphere (2) Respiratory failure: Pedro Morton Oct 14, 2016 08:42 Cielo Roa MD Oct 14, 2016 11:51
[2016-10-14] MEDS: SODIUM CHLORIDE 0.9% FLUSH 5 ML FLUSH IVF SCH (09:00)
[2016-10-14] MEDS: BENEPROTEIN POWDER 1 PACK G-TUBE SCH ×3 (09:37→18:00)
[2016-10-14] MEDS: ARTIFICIAL TEARS OPTH SOLN 15 ML BTL EACH EYE SCH ×3 (09:37→18:00)
[2016-10-14] MEDS: LISINOPRIL 20 MG TAB G-TUBE SCH ×2 (09:37→22:24)
[2016-10-14] MEDS: FAMOTIDINE 20 MG TAB NG SCH ×2 (09:38→22:24)
[2016-10-14] MEDS: SODIUM CHLORIDE 0.9% FLUSH 5 ML FLUSH IV FLUSH SCH ×2 (09:38→22:24)
[2016-10-14] MEDS: METOPROLOL TARTRATE 50 MG TAB GT SCH ×2 (09:38→22:24)
[2016-10-14] MEDS: NEOMYCIN/POLYMYXIN/BACITRACIN OINT 15 GM TUBE TOPICAL SCH ×2 (09:39→22:31)
[2016-10-14] MEDS: LACTOBACILLUS ACIDOPHILUS 1 GM PACKET TUBE SCH ×2 (09:39→22:24)
--- NOTE | 2016-10-14 11:30 | PD.PN.STU ---
Subjective Remarks patient sleeping, less responsive today when call out name. Objective Vitals Vital Signs Date Time Temp Pulse Resp B/P Pulse Ox O2 Delivery O2 Flow Rate FiO2 10/14/16 08:52 96 T-piece 6.00 28 10/14/16 08:00 97.0 96 18 142/80 97 10/14/16 07:00 96 Trach Collar 6.00 28 10/14/16 04:00 97.5 76 18 148/79 98 10/14/16 04:00 Trach Collar 6.00 28 10/14/16 00:11 98.5 75 18 120/80 98 10/14/16 00:00 Trach Collar 6.00 28 10/13/16 21:47 99 T-piece 6.00 28 10/13/16 20:00 83 10/13/16 20:00 Trach Collar 6.00 28 10/13/16 20:00 99.2 81 18 132/78 99 10/13/16 16:00 98.0 86 18 125/71 97 10/13/16 12:00 97.0 83 18 142/79 97 I/O 10/13/16 10/13/16 10/13/16 10/14/16 10/14/16 10/14/16 07:00 15:00 23:00 07:00 15:00 23:00 Intake Total 771 ml 1231 ml 1024 ml Output Total 350 ml 800 ml 700 ml Balance 421 ml -800 ml 531 ml 1024 ml Intake Oral 0 ml Tube Feeding 371 ml 671 ml 464 ml Other 400 ml 560 ml 560 ml Output Urine Total 350 ml 800 ml 700 ml # Voids 1 2 2 # Bowel Movements 1 0 0 Result Diagram: 10/10/1670410/10/16704 Objective Remarks This is an averagely built middle-aged man who is responsive on a trach collar. He has weakness of his right extremities. HEENT: Head normocephalic. Pupils reactive. Throat is clear. NECK: Supple without venous distension. No thyromegaly or lymphadenopathy. CHEST: Decreased breath sounds at the bases . HEART: The heart sounds are regular, S1-S2. No murmur. No S3. ABDOMEN: Theabdomen is soft, nontender. Bowel sounds are active. No organomegaly. EXTREMITIES: Weakness of the right extremities. The patient does move his left extremities spontaneously., RECTAL: Exam is deferred. A/P Assessment and Plan IMPRESSION 1. Status post left basal ganglia intraparenchymal hemorrhage with the right frontal ventriculostomy placement. 2. Acute respiratory failure resolved. 3. Bibasilar atelectasis and pneumonia. 4. History of uncontrolled hypertension. 5. Right hemiplegia. Plan : 1. Cont on T Bar 28 %. 2. Trach suction and lavage prn. 3. Nebs bid , duoneb. 4. PM valve trials 1 hour 5. Continue Tube feeds at 60 CC. 6. PT evaluation. 7. CMP CBC in am Eileen Castillo M3 Oct 14, 2016 11:30
[2016-10-14] MEDS: cloNIDine HCL 0.3 MG TAB G-TUBE SCH ×2 (12:52→23:49)
[2016-10-14] MEDS: ENOXAPARIN SODIUM 40 MG/0.4 ML SYRINGE SQ SCH (14:26)
[2016-10-14] MEDS: ACETAMINOPHEN 325 MG TAB PO PRN (22:25)
--- NOTE | 2016-10-14 23:06 | HHI.PR ---
Subjective Remarks Awake and On a T Bar 28 %. . Moves left arm and leg. Lethargic today. Objective Vital Signs Date Time Temp Pulse Resp B/P Pulse Ox O2 Delivery O2 Flow Rate FiO2 10/14/16 20:00 98.0 111 22 152/90 96 10/14/16 18:00 84 10/14/16 16:00 97.0 85 18 148/66 96 10/14/16 12:00 98.0 81 18 145/81 97 10/14/16 08:52 96 T-piece 6.00 28 10/14/16 08:00 97.0 96 18 142/80 97 10/14/16 07:00 96 Trach Collar 6.00 28 10/14/16 04:00 97.5 76 18 148/79 98 10/14/16 04:00 Trach Collar 6.00 28 10/14/16 00:11 98.5 75 18 120/80 98 10/14/16 00:00 Trach Collar 6.00 28 I/O 10/13/16 10/13/16 10/13/16 10/14/16 10/14/16 10/14/16 07:00 15:00 23:00 07:00 15:00 23:00 Intake Total 771 ml 1231 ml 1024 ml 1340 ml Output Total 350 ml 800 ml 700 ml 1200 ml Balance 421 ml -800 ml 531 ml 1024 ml 140 ml Intake Oral 0 ml Tube Feeding 371 ml 671 ml 464 ml 540 ml Other 400 ml 560 ml 560 ml 800 ml Output Urine Total 350 ml 800 ml 700 ml 1200 ml # Voids 1 2 2 # Bowel Movements 1 0 0 1 Result Diagram: 10/10/1670410/10/16704 Objective Remarks This is an averagely built middle-aged man who is responsive on a trach collar. He has weakness of his right extremities. HEENT: Head normocephalic. Pupils reactive. Throat is clear. NECK: Supple without venous distension. No thyromegaly or lymphadenopathy. CHEST: Decreased breath sounds at the bases .Occ wheeze heard HEART: The heart sounds are regular, S1-S2. No murmur. No S3. ABDOMEN: The abdomen is soft, nontender. Bowel sounds are active. No organomegaly. EXTREMITIES: Weakness of the right extremities. The patient does move his left extremities., RECTAL: Exam is deferred. Assessment and Plan Assessment and Plan IMPRESSION 1. Status post left basal ganglia intraparenchymal hemorrhage with the right frontal ventriculostomy placement. 2. Acute respiratory failure resolved. 3. Bibasilar atelectasis and pneumonia. 4. History of uncontrolled hypertension. 5. Right hemiplegia. Plan : 1. Cont on T Bar 28 %. 2. Trach suction and lavage prn. 3. Nebs bid , duoneb. 4. CXR in am. 5. Tube feeds at 60 CC. 6. PT evaluation. 7. PM Valve if tolerating. Lynne White MD Oct 14, 2016 23:06
[2016-10-15] VITALS (7 sets, daily range): BP systolic 127–166; BP diastolic 65–93; PULSE 75–102; RESP 18–20; TEMP 97.6–98.3; O2SAT 94–97
[2016-10-15] MEDS: hydrALAZINE HCL 100 MG TAB G-TUBE SCH ×4 (00:56→17:46)
[2016-10-15] MEDS: FREE WATER PEG SCH ×4 (04:00→21:09)
[2016-10-15] MEDS: SENNOSIDES 8.6 MG TAB GT SCH ×2 (06:32→17:46)
--- NOTE | 2016-10-15 07:37 | RADRPT ---
EXAM DATE/TIME: 10/15/2016 06:24 [facility] COMPARISON: CHEST SINGLE AP, September 25, 2016, 16:19. INDICATIONS : Pneumonia. MEDICAL HISTORY : Hypertension. SURGICAL HISTORY : Ventriculostomy. Tracheostomy. ENCOUNTER: Subsequent ACUITY: 1 month PAIN SCORE: Non-responsive. LOCATION: Bilateral chest FINDINGS: A single view of the chest demonstrates the lungs to be symmetrically aerated without evidence of mas s, infiltrate or effusion. Tracheostomy tube unchanged. The cardiomediastinal contours are unremarka ble. Osseous structures are intact. CONCLUSION: No acute disease. Sergey Muhammad MD on October 15, 2016 at 7:31 Board Certified Radiologist. This report was verified electronically.
[2016-10-15] MEDS: SODIUM CHLORIDE 0.9% FLUSH 5 ML FLUSH IVF SCH (09:00)
[2016-10-15] MEDS: FAMOTIDINE 20 MG TAB NG SCH ×2 (11:43→21:07)
[2016-10-15] MEDS: METOPROLOL TARTRATE 50 MG TAB GT SCH ×2 (11:43→21:07)
[2016-10-15] MEDS: LISINOPRIL 20 MG TAB G-TUBE SCH ×2 (11:43→21:07)
[2016-10-15] MEDS: cloNIDine HCL 0.3 MG TAB G-TUBE SCH (11:44)
[2016-10-15] MEDS: NEOMYCIN/POLYMYXIN/BACITRACIN OINT 15 GM TUBE TOPICAL SCH ×2 (11:44→21:09)
[2016-10-15] MEDS: LACTOBACILLUS ACIDOPHILUS 1 GM PACKET TUBE SCH (11:44)
[2016-10-15] MEDS: ARTIFICIAL TEARS OPTH SOLN 15 ML BTL EACH EYE SCH ×3 (11:45→17:47)
[2016-10-15] MEDS: BENEPROTEIN POWDER 1 PACK G-TUBE SCH ×3 (11:45→17:47)
[2016-10-15] MEDS: SODIUM CHLORIDE 0.9% FLUSH 5 ML FLUSH IV FLUSH SCH ×2 (11:45→21:07)
--- NOTE | 2016-10-15 12:29 | HHI.PR ---
Subjective Remarks Sleeping today, awakens to voice and light touch. Mental status at baseline. BP is a little higher today. Discussed with RN, Lactinex packet does not dissolve well, asking for Lactinex pill. No acute issues. Objective Vitals Vital Signs Date Time Temp Pulse Resp B/P Pulse Ox O2 Delivery O2 Flow Rate FiO2 10/15/16 11:53 97.9 99 20 166/93 94 10/15/16 10:00 96 T-piece 28 10/15/16 04:00 97.6 75 20 127/80 97 10/15/16 00:00 98.1 87 20 143/84 95 10/14/16 20:00 98.0 111 22 152/90 96 10/14/16 19:58 110 10/14/16 18:00 84 10/14/16 16:00 97.0 85 18 148/66 96 I/O 10/14/16 10/14/16 10/14/16 10/15/16 10/15/16 10/15/16 07:00 15:00 23:00 07:00 15:00 23:00 Intake Total 1024 ml 1340 ml 0 ml 0 ml Output Total 1200 ml 550 ml 400 ml Balance 1024 ml 140 ml -550 ml -400 ml Intake Oral 0 ml 0 ml Tube Feeding 464 ml 540 ml Other 560 ml 800 ml Output Urine Total 1200 ml 550 ml 400 ml # Voids 2 # Bowel Movements 0 1 0 0 Objective Remarks GENERAL: Well-developed well-nourished. In no acute distress. SKIN: Warm and dry. No lesions noted. HEENT: Normocephalic. Pupils equal and round and reactive to light. Mucous membranes pink and moist. Trach in place. CARDIOVASCULAR: Regular rate and rhythm. No murmur appreciated. RESPIRATORY: No accessory muscle use. Coarse breath sounds, clear to auscultation bilaterally. GASTROINTESTINAL: Abdomen soft, non-tender, nondistended. Bowel sounds x4. PEG in place. MUSCULOSKELETAL: No obvious deformities. No clubbing or cyanosis. No edema. NEUROLOGICAL: Awake and alert. Eyes do not track. Moves left side. Does not move right side. Procedures PEG A/P Problem List: (1) ICH (intracerebral hemorrhage) ICD Code: I61.9 Status: Acute (2) Hypertensive emergency ICD Code: I16.1 Status: Resolved (3) Hypokalemia ICD Code: E87.6 Status: Resolved (4) Respiratory failure ICD Code: J96.90 Status: Chronic Assessment and Plan 61-year-old male with left basal ganglia hemorrhage, intraventricular extension test post placement of ventriculostomy drain. Left basal ganglia intraparenchymal hemorrhage with encephalopathy -s/p Right frontal ventriculostomy placement 08/26 with neurosurgery, CT head revealed left basal ganglia intraparenchymal hemorrhage 3.42 cm with extension to lateral ventricle, midline shift 5 mm to the right. Goal systolic blood pressure less than 140. EEG 08/30: generalized slowing, no seizure activity. Drain removed 09/17/16. Continue blood pressure control. Hypertensive emergency -Initially managed with Cardizem drip. Resolved. -Continue Norvasc 10 mg daily, hydralazine to 100 mg every 6 hours, lisinopril 20 po bid, Lopressor 100 bid. BP is a little higher today. Change Catapres 0.3 bid to 0.2 TID. Acute hypoxic and hypercarbic respiratory failure- secondary to Staphylococcus pneumonia, tracheostomy in place, continue T piece. Pulmonary following, chest x-ray from 09/22/16 shows improvement, still shows atelectasis. Continue pulmonary toilet. S/P course of Levaquin, completed 10/06. Pulmonary following. Chest x-ray done today was clear. Left pinna cellulitis: Improving. Topical antibiotic. Patient already on oral Levaquin. Wound care. Pressure offloading Escherichia coli UTI: s/p treatment Failure to thrive, protein energy malnutrition: status post PEG tube placement by IR 09/19/16, continue Glucerna, tube feeds at goal. Hyperglycemia of Critical Illness-continue sliding scale with Accu-Cheks. Stable, discontinued sliding scale Hypernatremia and hypokalemia: Continue free water to 400 mL every 6 hours. Repeat BMP and magnesium improved, monitor. Diarrhea: Likely antibiotic associated while patient was on Levaquin. No further loose stools to check C. difficile and no leukocytosis, doubt C. difficile. Continue Lactinex. Prophylaxis - GI - Protonix - DVT - SCD Discharge Planning Discharge planning to SNF when arranged. Problem Qualifiers (1) ICH (intracerebral hemorrhage): Qualified Code: I61.0 - Nontraumatic subcortical hemorrhage of left cerebral hemisphere (2) Respiratory failure: Pedro Morton Oct 15, 2016 12:29 Cielo Roa MD Oct 15, 2016 15:43
[2016-10-15] MEDS ORDERED: cloNIDine HCL 0.3 MG TAB G-TUBE SCH (13:00)
[2016-10-15] MEDS: cloNIDine HCL 0.2 MG TAB G-TUBE SCH ×2 (13:45→17:46)
[2016-10-15] MEDS: ENOXAPARIN SODIUM 40 MG/0.4 ML SYRINGE SQ SCH (13:45)
--- NOTE | 2016-10-15 19:36 | HHI.PR ---
Subjective Remarks Awake and On a T Bar 28 %. Moves left arm and leg. No new change in neuro status Objective Vital Signs Date Time Temp Pulse Resp B/P Pulse Ox O2 Delivery O2 Flow Rate FiO2 10/15/16 18:00 96 Trach Collar 6.00 10/15/16 16:51 98.2 97 18 160/91 97 10/15/16 11:53 97.9 99 20 166/93 94 10/15/16 10:00 96 T-piece 10/15/16 04:00 97.6 75 20 127/80 97 10/15/16 00:00 98.1 87 20 143/84 95 10/14/16 20:00 98.0 111 22 152/90 96 10/14/16 19:58 110 I/O 10/14/16 10/14/16 10/14/16 10/15/16 10/15/16 10/15/16 07:00 15:00 23:00 07:00 15:00 23:00 Intake Total 1024 ml 1340 ml 0 ml 0 ml Output Total 1200 ml 550 ml 400 ml 800 ml Balance 1024 ml 140 ml -550 ml -400 ml -800 ml Intake Oral 0 ml 0 ml Tube Feeding 464 ml 540 ml Other 560 ml 800 ml Output Urine Total 1200 ml 550 ml 400 ml 800 ml # Voids 2 # Bowel Movements 0 1 0 0 2 Objective Remarks This is an averagely built middle-aged man who is responsive on a trach collar. He has weakness of his right extremities. HEENT: Head normocephalic. Pupils reactive. Throat is clear. NECK: Supple without venous distension. No thyromegaly or lymphadenopathy. CHEST: Decreased breath sounds at the bases .Clear lungs HEART: The heart sounds are regular, S1-S2. No murmur. No S3. ABDOMEN: The abdomen is soft, nontender. Bowel sounds are active. No organomegaly. EXTREMITIES: Weakness of the right extremities. The patient does move his left extremities., RECTAL: Exam is deferred. Assessment and Plan Assessment and Plan IMPRESSION 1. Status post left basal ganglia intraparenchymal hemorrhage with the right frontal ventriculostomy placement. 2. Acute respiratory failure resolved. 3. Bibasilar atelectasis and pneumonia. 4. History of uncontrolled hypertension. 5. Right hemiplegia. Plan : 1. Cont on T Bar 28 %. 2. Trach suction and lavage prn. 3. Nebs bid , duoneb. 4. Rehab placement. 5. Tube feeds at 60 CC. 6. PT evaluation. 7. PM Valve if tolerating. Lynne White MD Oct 15, 2016 19:36
[2016-10-15] MEDS: LACTOBACILLUS ACIDOPHILUS TAB PEG SCH (21:09)
[2016-10-16] VITALS (9 sets, daily range): BP systolic 105–154; BP diastolic 65–87; PULSE 71–86; RESP 16–20; TEMP 97.3–97.8; O2SAT 95–97
[2016-10-16] MEDS: hydrALAZINE HCL 100 MG TAB G-TUBE SCH ×4 (00:45→18:02)
[2016-10-16] MEDS: FREE WATER PEG SCH ×4 (04:20→21:13)
[2016-10-16] MEDS: SENNOSIDES 8.6 MG TAB GT SCH ×2 (06:39→18:00)
--- NOTE | 2016-10-16 08:15 | HHI.PR ---
Subjective Remarks Follow-up for ICH. Patient is awake and alert. Attempts to look at me today. RN at bedside. No acute issues. Plan is to try PM valve to eval talking. Objective Vitals Vital Signs Date Time Temp Pulse Resp B/P Pulse Ox O2 Delivery O2 Flow Rate FiO2 10/16/16 06:38 86 154/76 10/16/16 04:00 97.8 85 20 143/87 96 10/16/16 04:00 T-Piece 5.00 10/16/16 00:00 T-Piece 5.00 28 10/16/16 00:00 97.6 83 20 146/87 97 10/15/16 20:11 102 10/15/16 20:00 98.1 97 20 139/84 96 10/15/16 20:00 T-Piece 5.00 10/15/16 18:00 96 Trach Collar 6.00 10/15/16 16:51 98.2 97 18 160/91 97 10/15/16 11:53 97.9 99 20 166/93 94 10/15/16 10:00 96 T-piece 28 I/O 10/15/16 10/15/16 10/15/16 10/16/16 10/16/16 10/16/16 07:00 15:00 23:00 07:00 15:00 23:00 Intake Total 0 ml 1228 ml 966 ml Output Total 400 ml 1500 ml 350 ml Balance -400 ml -272 ml 616 ml Intake Oral 0 ml 0 ml Tube Feeding 428 ml 516 ml Other 800 ml 450 ml Output Urine Total 400 ml 1500 ml 350 ml # Bowel Movements 0 3 1 Objective Remarks GENERAL: Well-developed well-nourished. In no acute distress. SKIN: Warm and dry. No lesions noted. HEENT: Normocephalic. Pupils equal and round and reactive to light. Mucous membranes pink and moist. Trach in place. CARDIOVASCULAR: Regular rate and rhythm. No murmur appreciated. RESPIRATORY: No accessory muscle use. Clear to auscultation bilaterally. GASTROINTESTINAL: Abdomen soft, non-tender, nondistended. Bowel sounds x4. PEG in place. MUSCULOSKELETAL: No obvious deformities. No clubbing or cyanosis. No edema. NEUROLOGICAL: Awake and alert. Eyes rarely track, but does on occasion. Moves left side. Does not move right side. Procedures PEG A/P Problem List: (1) ICH (intracerebral hemorrhage) ICD Code: I61.9 Status: Acute (2) Hypertensive emergency ICD Code: I16.1 Status: Resolved (3) Hypokalemia ICD Code: E87.6 Status: Resolved (4) Respiratory failure ICD Code: J96.90 Status: Chronic Assessment and Plan 61-year-old male with left basal ganglia hemorrhage, intraventricular extension test post placement of ventriculostomy drain. Left basal ganglia intraparenchymal hemorrhage with encephalopathy -s/p Right frontal ventriculostomy placement 08/26 with neurosurgery, CT head revealed left basal ganglia intraparenchymal hemorrhage 3.42 cm with extension to lateral ventricle, midline shift 5 mm to the right. Goal systolic blood pressure less than 140. EEG 08/30: generalized slowing, no seizure activity. Drain removed 09/17/16. Continue blood pressure control. Hypertensive emergency -Initially managed with Cardizem drip. Resolved. -Continue Norvasc 10 mg daily, hydralazine to 100 mg every 6 hours, lisinopril 20 po bid, Lopressor 100 bid. BP is a little higher today. Changed Catapres 0.3 bid to 0.2 TID, monitor response. Acute hypoxic and hypercarbic respiratory failure- secondary to Staphylococcus pneumonia, tracheostomy in place, continue T piece. Continue pulmonary toilet. S/P course of Levaquin, completed 10/06. Pulmonary following. Chest x-ray 10/15 was clear. Left pinna cellulitis: Improving. Topical antibiotic. Patient already on oral Levaquin. Wound care. Pressure offloading Escherichia coli UTI: s/p treatment Failure to thrive, protein energy malnutrition: status post PEG tube placement by IR 09/19/16, continue Glucerna, tube feeds at goal. Hyperglycemia of Critical Illness-continue sliding scale with Accu-Cheks. Stable, discontinued sliding scale Hypernatremia and hypokalemia: Continue free water to 400 mL every 6 hours. Repeat BMP and magnesium improved, monitor. Diarrhea: Likely antibiotic associated while patient was on Levaquin. No further loose stools to check C. difficile and no leukocytosis, doubt C. difficile. Continue Lactinex. Prophylaxis - GI - Protonix - DVT - SCD Discharge Planning Discharge planning to SNF when arranged. Problem Qualifiers (1) ICH (intracerebral hemorrhage): Qualified Code: I61.0 - Nontraumatic subcortical hemorrhage of left cerebral hemisphere (2) Respiratory failure: Pedro Morton Oct 16, 2016 08:15 Cielo Roa MD Oct 16, 2016 13:08
[2016-10-16] MEDS: SODIUM CHLORIDE 0.9% FLUSH 5 ML FLUSH IVF SCH (09:00)
[2016-10-16] MEDS: LISINOPRIL 20 MG TAB G-TUBE SCH ×2 (10:14→20:31)
[2016-10-16] MEDS: LACTOBACILLUS ACIDOPHILUS TAB PEG SCH ×2 (10:15→20:30)
[2016-10-16] MEDS: METOPROLOL TARTRATE 50 MG TAB GT SCH ×2 (10:15→20:31)
[2016-10-16] MEDS: cloNIDine HCL 0.2 MG TAB G-TUBE SCH ×3 (10:15→18:02)
[2016-10-16] MEDS: FAMOTIDINE 20 MG TAB NG SCH ×2 (10:15→20:30)
[2016-10-16] MEDS: NEOMYCIN/POLYMYXIN/BACITRACIN OINT 15 GM TUBE TOPICAL SCH ×2 (10:18→20:31)
[2016-10-16] MEDS: BENEPROTEIN POWDER 1 PACK G-TUBE SCH ×4 (10:19→21:14)
[2016-10-16] MEDS: ARTIFICIAL TEARS OPTH SOLN 15 ML BTL EACH EYE SCH ×3 (10:19→18:02)
[2016-10-16] MEDS: SODIUM CHLORIDE 0.9% FLUSH 5 ML FLUSH IV FLUSH SCH ×2 (10:19→20:30)
[2016-10-16] MEDS: ENOXAPARIN SODIUM 40 MG/0.4 ML SYRINGE SQ SCH (13:36)
--- NOTE | 2016-10-16 18:46 | PD.PN.STU ---
Subjective Remarks Patient sleeping, opens eyes in response to name. Objective Vitals Vital Signs Date Time Temp Pulse Resp B/P Pulse Ox O2 Delivery O2 Flow Rate FiO2 10/16/16 08:51 96 T-piece 6.00 28 10/16/16 08:00 97.5 83 20 141/81 97 10/16/16 06:38 86 154/76 10/16/16 04:00 97.8 85 20 143/87 96 10/16/16 04:00 T-Piece 5.00 28 10/16/16 00:00 T-Piece 5.00 28 10/16/16 00:00 97.6 83 20 146/87 97 10/15/16 20:11 102 10/15/16 20:00 98.1 97 20 139/84 96 10/15/16 20:00 T-Piece 5.00 28 I/O 10/15/16 10/15/16 10/15/16 10/16/16 10/16/16 10/16/16 07:00 15:00 23:00 07:00 15:00 23:00 Intake Total 0 ml 1228 ml 966 ml Output Total 400 ml 1500 ml 350 ml Balance -400 ml -272 ml 616 ml Intake Oral 0 ml 0 ml Tube Feeding 428 ml 516 ml Other 800 ml 450 ml Output Urine Total 400 ml 1500 ml 350 ml # Bowel Movements 0 3 1 Objective Remarks This is an averagely built middle-aged man on a trach, opens eyes in response to his name. Sleeping comfortably on exam. collar. He has weakness of his right extremities. HEENT: Head normocephalic. Pupils reactive. Throat is clear. NECK: Supple without venous distension. No thyromegaly or lymphadenopathy. CHEST: Decreased breath sounds at the bases .Clear lungs HEART: The heart sounds are regular, S1-S2. No murmur. No S3. ABDOMEN: The abdomen is soft, nontender. Bowel sounds are active. No organomegaly. EXTREMITIES: Weakness of the right extremities. The patient does move his left extremities spontaneously and to minimal commands., RECTAL: Exam is deferred. A/P Assessment and Plan IMPRESSION 1. Status post left basal ganglia intraparenchymal hemorrhage with the right frontal ventriculostomy placement. 2. Acute respiratory failure RESOLVED. 3. Bibasilar atelectasis and pneumonia RESOLVED. 4. History of uncontrolled hypertension. 5. Right hemiplegia. Plan : 1. Cont on T Bar 28 %. 2. Trach suction and lavage prn. 3. Nebs bid , duoneb. 4. 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 5. Continue Tube feeds at 60 CC. 6. PT evaluation. 7. Continue PM Valve if tolerating. Eileen Castillo M3 Oct 16, 2016 18:46
--- NOTE | 2016-10-16 19:08 | HHI.PR ---
Subjective Remarks Awake and On a T Bar 28 %. Smiles. Moves left arm and leg. No new change in neuro status Objective Vital Signs Date Time Temp Pulse Resp B/P Pulse Ox O2 Delivery O2 Flow Rate FiO2 10/16/16 08:51 96 T-piece 6.00 28 10/16/16 08:00 97.5 83 20 141/81 97 10/16/16 06:38 86 154/76 10/16/16 04:00 97.8 85 20 143/87 96 10/16/16 04:00 T-Piece 5.00 28 10/16/16 00:00 T-Piece 5.00 28 10/16/16 00:00 97.6 83 20 146/87 97 10/15/16 20:11 102 10/15/16 20:00 98.1 97 20 139/84 96 10/15/16 20:00 T-Piece 5.00 28 I/O 10/15/16 10/15/16 10/15/16 10/16/16 10/16/16 10/16/16 07:00 15:00 23:00 07:00 15:00 23:00 Intake Total 0 ml 1228 ml 966 ml Output Total 400 ml 1500 ml 350 ml Balance -400 ml -272 ml 616 ml Intake Oral 0 ml 0 ml Tube Feeding 428 ml 516 ml Other 800 ml 450 ml Output Urine Total 400 ml 1500 ml 350 ml # Bowel Movements 0 3 1 Objective Remarks This is an averagely built middle-aged man who is responsive on a trach collar. He has weakness of right extremities. HEENT: Head normocephalic. Pupils reactive. Throat is clear. NECK: Supple without venous distension. No thyromegaly or lymphadenopathy. CHEST: Decreased breath sounds at the bases .Occ wheeze . HEART: The heart sounds are regular, S1-S2. No murmur. No S3. ABDOMEN: The abdomen is soft, nontender. Bowel sounds are active. No organomegaly. EXTREMITIES: Weakness of the right extremities. The patient does move his left extremities., RECTAL: Exam is deferred. Assessment and Plan Assessment and Plan IMPRESSION 1. Status post left basal ganglia intraparenchymal hemorrhage with the right frontal ventriculostomy placement. 2. Acute respiratory failure resolved. 3. Bibasilar atelectasis and pneumonia. 4. History of uncontrolled hypertension. 5. Right hemiplegia. Plan : 1. Cont on T Bar 28 %. 2. Trach suction and lavage prn. 3. Nebs bid , duoneb. 4. CBC,BMP 5. Tube feeds at 60 CC. 6. PT evaluation. 7. PM Valve if tolerating. Lynne White MD Oct 16, 2016 19:08
[2016-10-17] VITALS (9 sets, daily range): BP systolic 112–152; BP diastolic 63–90; PULSE 73–98; RESP 18–20; TEMP 97.3–98.6; O2SAT 94–99
[2016-10-17] MEDS: hydrALAZINE HCL 100 MG TAB G-TUBE SCH ×4 (00:48→17:26)
[2016-10-17] MEDS: FREE WATER PEG SCH ×4 (04:00→22:00)
[2016-10-17] MEDS: SENNOSIDES 8.6 MG TAB GT SCH ×2 (06:34→17:25)
[2016-10-17] MEDS: SODIUM CHLORIDE 0.9% FLUSH 5 ML FLUSH IVF SCH (09:00)
[2016-10-17] MEDS: LISINOPRIL 20 MG TAB G-TUBE SCH ×2 (09:00→20:14)
[2016-10-17] MEDS: NEOMYCIN/POLYMYXIN/BACITRACIN OINT 15 GM TUBE TOPICAL SCH ×2 (09:01→20:15)
[2016-10-17] MEDS: LACTOBACILLUS ACIDOPHILUS TAB PEG SCH ×2 (09:01→20:17)
[2016-10-17] MEDS: FAMOTIDINE 20 MG TAB NG SCH ×2 (09:01→20:14)
[2016-10-17] MEDS: cloNIDine HCL 0.2 MG TAB G-TUBE SCH ×3 (09:01→17:26)
[2016-10-17] MEDS: SODIUM CHLORIDE 0.9% FLUSH 5 ML FLUSH IV FLUSH SCH ×2 (09:01→20:14)
[2016-10-17] MEDS: METOPROLOL TARTRATE 50 MG TAB GT SCH ×2 (09:01→20:14)
[2016-10-17] MEDS: ARTIFICIAL TEARS OPTH SOLN 15 ML BTL EACH EYE SCH ×3 (09:02→17:26)
[2016-10-17] MEDS: BENEPROTEIN POWDER 1 PACK G-TUBE SCH ×3 (09:02→17:26)
--- NOTE | 2016-10-17 10:38 | HHI.PR ---
Subjective Remarks Follow-up for ICH. Awake and alert. Neuro at baseline. Discussed with RN, patient seemed to have more secretions than normal today, otherwise no new issues. Objective Vitals Vital Signs Date Time Temp Pulse Resp B/P Pulse Ox O2 Delivery O2 Flow Rate FiO2 10/17/16 09:00 T-Piece 6.00 28 10/17/16 08:00 98 10/17/16 08:00 97.9 97 20 142/78 96 10/17/16 04:00 T-Piece 6.00 28 10/17/16 04:00 98.2 93 20 138/79 96 10/17/16 00:35 94 T-piece 6.00 28 10/17/16 00:00 T-Piece 6.00 28 10/17/16 00:00 97.9 73 20 140/82 95 10/16/16 20:17 72 10/16/16 20:00 97.3 71 16 105/65 96 10/16/16 20:00 T-Piece 6.00 28 10/16/16 16:00 97.4 79 20 122/78 95 10/16/16 16:00 T-Piece 5.00 28 10/16/16 12:00 97.8 73 20 128/74 97 10/16/16 12:00 T-Piece 5.00 28 I/O 10/16/16 10/16/16 10/16/16 10/17/16 10/17/16 10/17/16 07:00 15:00 23:00 07:00 15:00 23:00 Intake Total 966 ml 0 ml 1097 ml 853 ml Output Total 350 ml 800 ml 401 ml 350 ml Balance 616 ml -800 ml 696 ml 503 ml Intake Oral 0 ml 0 ml Tube Feeding 516 ml 297 ml 403 ml Other 450 ml 800 ml 450 ml Output Urine Total 350 ml 800 ml 400 ml 350 ml Stool Total 1 ml # Bowel Movements 1 0 0 Objective Remarks GENERAL: Well-developed well-nourished. In no acute distress. SKIN: Warm and dry. No lesions noted. HEENT: Normocephalic. Pupils equal and round and reactive to light. Mucous membranes pink and moist. Trach in place. CARDIOVASCULAR: Regular rate and rhythm. No murmur appreciated. RESPIRATORY: No accessory muscle use. Clear to auscultation bilaterally. No crackles. GASTROINTESTINAL: Abdomen soft, non-tender, nondistended. Bowel sounds x4. PEG in place. MUSCULOSKELETAL: No obvious deformities. No clubbing or cyanosis. No edema. NEUROLOGICAL: Awake and alert. Attempts to track to voice. Moves left side, sometimes to command. Does not move right side. Does not move face to command. Procedures PEG A/P Problem List: (1) ICH (intracerebral hemorrhage) ICD Code: I61.9 Status: Acute (2) Hypertensive emergency ICD Code: I16.1 Status: Resolved (3) Hypokalemia ICD Code: E87.6 Status: Resolved (4) Respiratory failure ICD Code: J96.90 Status: Chronic Assessment and Plan 61-year-old male with left basal ganglia hemorrhage, intraventricular extension test post placement of ventriculostomy drain. Left basal ganglia intraparenchymal hemorrhage with encephalopathy -s/p Right frontal ventriculostomy placement 08/26 with neurosurgery, CT head revealed left basal ganglia intraparenchymal hemorrhage 3.42 cm with extension to lateral ventricle, midline shift 5 mm to the right. Goal systolic blood pressure less than 140. EEG 08/30: generalized slowing, no seizure activity. Drain removed 09/17/16. Continue blood pressure control. Hypertensive emergency -Initially managed with Cardizem drip. Resolved. -Continue Norvasc 10 mg daily, hydralazine to 100 mg every 6 hours, lisinopril 20 po bid, Lopressor 100 bid. Changed Catapres 0.3 bid to 0.2 TID, BP seems less labile and better controlled. Acute hypoxic and hypercarbic respiratory failure- secondary to Staphylococcus pneumonia, tracheostomy in place, continue T piece. Continue pulmonary toilet. S/P course of Levaquin, completed 10/06. Pulmonary following. Chest x-ray 10/15 was clear. Left pinna cellulitis: Improving. Topical antibiotic. Patient already on oral Levaquin. Wound care. Pressure offloading Escherichia coli UTI: s/p treatment Failure to thrive, protein energy malnutrition: status post PEG tube placement by IR 09/19/16, continue Glucerna, tube feeds at goal. Hyperglycemia of Critical Illness-continue sliding scale with Accu-Cheks. Stable, discontinued sliding scale Hypernatremia and hypokalemia: Continue free water to 400 mL every 6 hours. Repeat BMP and magnesium improved, monitor. Diarrhea: Likely antibiotic associated while patient was on Levaquin. No further loose stools to check C. difficile and no leukocytosis, doubt C. difficile. Continue Lactinex. Prophylaxis - GI - Protonix - DVT - SCD Discharge Planning Discharge planning to SNF when arranged. Problem Qualifiers (1) ICH (intracerebral hemorrhage): Qualified Code: I61.0 - Nontraumatic subcortical hemorrhage of left cerebral hemisphere (2) Respiratory failure: Pedro Morton Oct 17, 2016 10:37 Cielo Roa MD Oct 17, 2016 15:31
--- NOTE | 2016-10-17 13:18 | PD.PN.STU ---
Subjective Remarks Awake watching TV, no acute distress. On T bar. Smiling when walk into room. Objective Vitals Vital Signs Date Time Temp Pulse Resp B/P Pulse Ox O2 Delivery O2 Flow Rate FiO2 10/17/16 09:00 T-Piece 6.00 28 10/17/16 08:00 98 10/17/16 08:00 97.9 97 20 142/78 96 10/17/16 04:00 T-Piece 6.00 28 10/17/16 04:00 98.2 93 20 138/79 96 10/17/16 00:35 94 T-piece 6.00 28 10/17/16 00:00 T-Piece 6.00 28 10/17/16 00:00 97.9 73 20 140/82 95 10/16/16 20:17 72 10/16/16 20:00 97.3 71 16 105/65 96 10/16/16 20:00 T-Piece 6.00 28 10/16/16 16:00 97.4 79 20 122/78 95 10/16/16 16:00 T-Piece 5.00 28 I/O 10/16/16 10/16/16 10/16/16 10/17/16 10/17/16 10/17/16 07:00 15:00 23:00 07:00 15:00 23:00 Intake Total 966 ml 0 ml 1097 ml 853 ml Output Total 350 ml 800 ml 401 ml 350 ml Balance 616 ml -800 ml 696 ml 503 ml Intake Oral 0 ml 0 ml Tube Feeding 516 ml 297 ml 403 ml Other 450 ml 800 ml 450 ml Output Urine Total 350 ml 800 ml 400 ml 350 ml Stool Total 1 ml # Bowel Movements 1 0 0 Objective Remarks GENERAL: This is an averagely built middle-aged man who is responsive on a trach collar. He has weakness of right extremities. HEENT: Head normocephalic. Pupils reactive. Throat is clear. NECK: Supple without venous distension. No thyromegaly or lymphadenopathy. CHEST: Decreased breath sounds at the bases, On T bar .Occ wheeze . HEART: The heart sounds are regular, S1-S2. No murmur. No S3. ABDOMEN: The abdomen is soft, nontender. Bowel sounds are active. No organomegaly. EXTREMITIES: Weakness of the right extremities. The patient does move his left extremities spontaneously and with simple commands. RECTAL: Exam is deferred. A/P Assessment and Plan IMPRESSION 1. Status post left basal ganglia intraparenchymal hemorrhage with the right frontal ventriculostomy placement. 2. Acute respiratory failure RESOLVED. 3. Bibasilar atelectasis and pneumonia RESOLVED. 4. History of uncontrolled hypertension. 5. Right hemiplegia. Plan : 1. Cont on T Bar 28 %. 2. Trach suction and lavage prn. 3. Nebs bid , duoneb. 4. Organize rehab placement. 5. Continue Tube feeds at 60 CC. 6. PT evaluation. 7. Continue PM Valve if tolerating. 8. Continue Abx per ID. Eileen Castillo M3 Oct 17, 2016 13:18
[2016-10-17] MEDS: ENOXAPARIN SODIUM 40 MG/0.4 ML SYRINGE SQ SCH (14:06)
--- NOTE | 2016-10-17 19:43 | HHI.PR ---
Subjective Remarks Awake and On a T Bar 28 %. not very responsive Moves left arm and leg. No new change in neuro status Objective Vital Signs Date Time Temp Pulse Resp B/P Pulse Ox O2 Delivery O2 Flow Rate FiO2 10/17/16 16:00 98.6 98 20 152/90 97 10/17/16 14:20 96 T-piece 6.00 28 10/17/16 12:00 97.9 85 20 133/74 96 10/17/16 09:00 T-Piece 6.00 28 10/17/16 08:00 98 10/17/16 08:00 97.9 97 20 142/78 96 10/17/16 04:00 T-Piece 6.00 28 10/17/16 04:00 98.2 93 20 138/79 96 10/17/16 00:35 94 T-piece 6.00 28 10/17/16 00:00 T-Piece 6.00 28 10/17/16 00:00 97.9 73 20 140/82 95 10/16/16 20:17 72 10/16/16 20:00 97.3 71 16 105/65 96 10/16/16 20:00 T-Piece 6.00 28 I/O 10/16/16 10/16/16 10/16/16 10/17/16 10/17/16 10/17/16 07:00 15:00 23:00 07:00 15:00 23:00 Intake Total 966 ml 0 ml 1097 ml 853 ml 888 ml Output Total 350 ml 800 ml 401 ml 350 ml 1250 ml Balance 616 ml -800 ml 696 ml 503 ml -362 ml Intake Oral 0 ml 0 ml 0 ml IV Total 2 ml Tube Feeding 516 ml 297 ml 403 ml 466 ml Tube Irrigant 420 ml Other 450 ml 800 ml 450 ml Output Urine Total 350 ml 800 ml 400 ml 350 ml 1250 ml Stool Total 1 ml # Bowel Movements 1 0 0 1 Objective Remarks This is an averagely built middle-aged man who is responsive on a trach collar. He has weakness of right extremities. HEENT: Head normocephalic. Pupils reactive. Throat is clear. NECK: Supple without venous distension. No thyromegaly or lymphadenopathy. CHEST: Decreased breath sounds at the bases .Occ wheeze . HEART: The heart sounds are regular, S1-S2. No murmur. No S3. ABDOMEN: The abdomen is soft, nontender. Bowel sounds are active. No organomegaly. EXTREMITIES: Weakness of the right extremities. The patient does move his left extremities., RECTAL: Exam is deferred. Assessment and Plan Assessment and Plan IMPRESSION 1. Status post left basal ganglia intraparenchymal hemorrhage with the right frontal ventriculostomy placement. 2. Acute respiratory failure resolved. 3. Bibasilar atelectasis and pneumonia. 4. History of uncontrolled hypertension. 5. Right hemiplegia. Plan : 1. Cont on T Bar 28 %. 2. Trach suction and lavage prn. 3. Nebs bid , duoneb. 4. Chest X ray Thursday 5. Tube feeds at 60 CC. 6. PT evaluation. 7. PM Valve if tolerating. Lynne White MD Oct 17, 2016 19:43
[2016-10-18] VITALS (13 sets, daily range): BP systolic 100–158; BP diastolic 59–93; PULSE 71–152; RESP 14–21; TEMP 97.5–99.8; O2SAT 95–100
[2016-10-18] MEDS: hydrALAZINE HCL 100 MG TAB G-TUBE SCH ×2 (00:07→04:45)
--- NOTE | 2016-10-18 02:50 | HHI.FPPN ---
Addendum to progress note ADDENDUM Reason for addendum: Additonal documentation Additional information [facility] ADDENDUM SUBJECTIVE Dr. Holguin and Dr. Walton responded to [facility] for 61 year-old male with diaphoreses, significant bloody bowel movement, bleeding via PEG tube, and hypotension to 68/46. PMHx significant for L basal ganglia hemorrhage with R hemiplegia several weeks prior. He is acting mildly sleepier than baseline. He is on Lovenox DVT prophylaxis and Full code. Pt appeared sleepy and unable to answer questions. OBJECTIVE: VITALS: B/P 68/46 -> 64/44. Pulse 88. O2 99% on RA. GEN: Sweaty male who appears sleepy, diaphoretic HEENT: Will attempt to open eyes to touch, R > L. Trach in place. RESP: Lungs sounds equal bilaterally. Referred upper airway sounds. CV: RRR. No murmurs GI: Abd soft, non-tender. PEG tube site L of umbilicus. : No izaguirre in place at present MSK: L arm in soft restraint (not pull at peg/trach). R hemiplegia- does not withdraw to painful stimuli RUE. Diffuse muscle atrophy. Legs in SCDs. RLE internally rotated. NEURO: R hemiplegia. Skin colder on R > L. Attempts to briefly open eyes to touch, not verbalization. Does not attempt to speak or nod. ASSESSMENT/PLAN High suspicion for DIC due to simultaneous bleeding per rectum and PEG site. Pt presenting with significant hypotension with systolics in low 60s secondary to fluid losses vs shock. -1L NS bolus running at time of [facility] -Pt transferred to [facility] -CBC, Type and Screen, CMP, PO4, Mg orders placed -[facility] team contacted -After discussion with attending physician, critical care consult was not pursued at this time -Will defer future management, f/u labs, and additional orders of fluid/blood to primary team SDW: Oneyda Bernal MD R1 Oct 18, 2016 02:50
[2016-10-18 03:00] LABS: AUTOMATED NEUTROPHIL # 4.8 TH/MM3 (1.8-7.7); BASOPHIL # 0.1 TH/MM3 (0-0.2); BASOPHIL % 0.8 % (0.0-2.0); EOSINOPHIL # 0.2 TH/MM3 (0-0.4); EOSINOPHIL % 2.3 % (0.0-4.0); HEMATOCRIT 26.1 % (39.0-51.0); HEMO FLAGS DIFF FINAL; LYMPH % 19.3 % (9.0-44.0); LYMPHOCYTE # 1.4 TH/MM3 (1.0-4.8); MEAN CORPUSCULAR HEMOGLOBIN 31.2 PG (27.0-34.0); MEAN CORPUSCULAR HGB CONC 34.3 % (32.0-36.0); MONO % 11.6 % (0.0-8.0); PLATELET COUNT 307 TH/MM3 (150-450); RED BLOOD COUNT 2.87 MIL/MM3 (4.50-5.90); WHITE BLOOD COUNT 7.3 TH/MM3 (4.0-11.0)
[2016-10-18] MEDS ORDERED: SODIUM CHLOR 0.9% 250 ML INJ 250 ML IV ONE (03:00)
[2016-10-18] MEDS ORDERED: VASOPRESSIN INJ 40 UNITS in DEXTROSE 5% IN WATER 100ML INJ 98 ML IV SCH ×2 (03:00)
[2016-10-18 03:14] LABS: APTT (PATIENT) 25.9 SEC (24.3-30.1)
[2016-10-18] MEDS ORDERED: PANTOPRAZOLE INJ 80 MG in SODIUM CHLORIDE 0.9% INJ 35 ML IV ONE (03:15)
[2016-10-18 03:22] LABS: ALT (GPT) 35 U/L (12-78); ANION GAP 8 MEQ/L (5-15); AST (GOT) 16 U/L (15-37); BICARBONATE 29.2 MEQ/L (21.0-32.0); BLOOD UREA NITROGEN 28 MG/DL (7-18); CHLORIDE 105 MEQ/L (98-107); GLOMERULAR FILTRATION RATE 84 ML/MIN (>89); MAGNESIUM 2.2 MG/DL (1.5-2.5); POTASSIUM 3.7 MEQ/L (3.5-5.1); SODIUM (NA) 142 MEQ/L (136-145)
[2016-10-18 03:24] LABS: ALKALINE PHOSPHATASE 74 U/L (45-117); TOTAL BILIRUBIN ADULT 0.3 MG/DL (0.2-1.0)
[2016-10-18 03:41] LABS: INTERNATIONAL NORMALIZED RATIO 1.1 RATIO
--- NOTE | 2016-10-18 03:42 | HHI.CCPN ---
Subjective Remarks/Hospital Course This is a middle-aged male. Date of admission 08/26/2016. Past medical history is unknown. His real name is Rafy Ruiz. Haritha Ruiz [phone] is the health proxy. Per ED report, patient was acute onset 1 hour prior to admission of right upper and lower extremity weakness and dysarthria. Upon presentation to the ED, patient was quite hypertensive and had decreased responsiveness. Patient was intubated by ED physician. [address] head revealed a left intraparenchymal hemorrhage/basal ganglia with extension to the lateral ventricle with a 5 mm shift to the right. Neurosurgery was consulted/Dr. Croft who placed Right frontal ventriculostomy. Laboratories reveal potassium 2.8. Currently on Cardene drip at 15 mg an hour. SUBJ: Remains intubated, on fentanyl. Propofol on hold. On Cardene infusion at 1mg per hour. Ventric with 87 ml blood-tinged CSF since placement. ICP well controlled,. Patient's [id number] is at the bedside, is in [place] 08/28: continues to have poor neurologic exam. on Cardene at 5mg/hr this AM. EVD with blood-tinged CSF, patent. ICP controlled. not yet on sedation hold this AM to my exam. 08/29: no change in neuro exam. cardene persists for blood pressure control. 08/30: encephalopathy persists. still on cardene at 5mg/hr for blood pressure. 08/31: hypernatremia persists. poor neuro exam still. unable to tolerate sedation holiday due to hypertension. labetalol increased yesterday with only mild improvements. did not diurese well with lasix 20 yesterday. 09/01: Remains off sedation since yesterday. Appears to localize with left upper extremity. Blood pressure control improved. Urine output excellent 3.9 L in 24 hours, EVD with 192 mL output in 24 hours 09/02: No improvement in neurological function. 09/03: No change in neuro status. Still waiting for photo ID. 09/04: No change. Plan trach today to facilitate long-tern vent weaning. 09/05: Hypertensive. Will increase lisinopril and add lopressor. 09/06: Transitioning to oral hypertension meds. Trach site dry clean. 09/07: BP control acceptable but needs fine tuning. Diuresis has been adequate - hold for now. Tolerates up to 2 hours CPAP - now a long-term weaning problem. 09/08: BP control acceptable. Trying to convert to oral meds only. 09/09: BP control better. Fever, leukocytosis worrisome. 09/10: MSSA in sputum, GNR in urine. Start ceftriaxone, stop Vanc and Cefepime. D/C izaguirre. 09/11: WBC declining nicely. BP control still problematic, presently on Lopressor, Norvasc, Lisinopril, and Catapres (all large doses). 09/12: BP control improved. WBC improved after ceftriaxone started. 09/13: Finally on t-piece and looking strong enough to sustain. BP control improved. Subjective: 10/18 CCM reconsulted following [facility] for GI bleeding. He had 2 large dark bloody BMs. SBP dropped to 60s. He then vomited some blood and then desaturated. Was on 28% Tpiece, increased to 50%. Objective Vital Signs Date Time Temp Pulse Resp B/P Pulse Ox O2 Delivery O2 Flow Rate FiO2 10/18/16 00:00 T-Piece 6.00 28 10/18/16 00:00 97.5 95 18 101/66 95 Intake and Output 10/17/16 10/17/16 10/18/16 08:00 16:00 00:00 Intake Total 853 ml 888 ml 0 ml Output Total 350 ml 1250 ml 300 ml Balance 503 ml -362 ml -300 ml Result Diagram: 10/18/16 0247 10/18/16 0247 Imaging Last Impressions Head CT 08/26/16 0000 Signed Impressions: Service Date/Time: Friday, August 26, 2016 15:41 - CONCLUSION: 1. Large intraparenchymal hemorrhage in the left basal ganglia with extension into left lateral ventricle. 2. Surrounding edema and mild midline shift to the right. Frederick Zaldivar MD Chest X-Ray 08/26/16 0000 Signed Impressions: Service Date/Time: Friday, August 26, 2016 14:37 - CONCLUSION: 1. Status post intubation with the endotracheal tube tip approximately 5 cm above the chela. 2. Midinspiratory study with crowding of the lung vasculature. Frederick Zaldivar MD Objective Remarks GENERAL: Middle-aged male, tracheally intubated SKIN: Warm, dry. HEAD: Atraumatic. Normocephalic. EYES:. Anicteric. No injection or drainage. NECK: Trachea midline. Trach with mild erythema, dry. CARDIOVASCULAR: Regular rate and rhythm. No m,r. No JVD. RESPIRATORY: mildly tachypneic with blood tinged secretions suctioned from trach. Clear to auscultation. GASTROINTESTINAL: Abdomen soft, non-tender, nondistended. PEG in place to gravity with drainage that appears c/w dark blood mixed with tube feed MUSCULOSKELETAL: Extremities without peripheral edema.Warm, well perfused. NEUROLOGICAL: Flaccid right upper extremity, 1/5 R knee flexion to noxious stimulus. L side moves spontaneously, withdraws on left side. Procedures PEG A/P Assessment and Plan Assessment: middle-aged male with large left basal ganglia ICH. s/p trach and PEG. Transferred to ICU following Halicat with GI bleeding and hypotension. 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 Neurosurgery/Dr. Croft. Prior Right frontal ventriculostomy. -- EEG 08/30: generalized slowing, no seizure activity. CV: Hemorrhagic shock Received 2 L crystalloid bolus. Give 2 units PRBC. Resp: Acute hypoxia S/p tracheostomy 50% trach collar, wean as tolerated. As needed bronchodilator therapy Apparent aspiration, monitor for e/o infection. GI: Mild Protein Calorie Malnutrition Hold tube feeds. PEG to gravity. GI consult. Protonix drip. FEN/RENAL: Insert Izaguirre for accurate I/Os. Endo: Euglycemic. Heme: Hgb q6 horus. Transfuse 2 units PRBC now. ID: Monitor for infection Access -PIV x2. Prophylaxis - GI - Protonix drip - DVT - SCD. Hold lovenox due to acute GI bleeding. Discussed with [facility] nurse. Discussed with Marietta Larson CCT 30 minutes Grace Rivero MD Oct 18, 2016 03:42 : Izaguirre for accurate I/Os. Endo: Hyperglycemia of Critical Illness Sliding-scale insulin with Accu-Cheks every 4 hours to maintain euglycemia. Low regimen Renal: Intravascular hypervolemia Monitor renal function closely Resolved Heme: daily CBC. ID: Monitor for infection FEN: Hypokalemia Replace per ICU electrolyte protocol. MSK: PT evaluate and treat Access - izaguirre Prophylaxis - GI - Protonix - DVT - SCD Overall impression: Tracheostomy placed. BP meds still being adjusted. Diuretics stopped. New fever worrisome, cultures indicate UTI webb-sensitive, improved fever curve. Tolerating T-piece, transfer soon. Grace Rivero MD Oct 18, 2016 03:42
--- NOTE | 2016-10-18 03:51 | HHI.PR ---
Addendum to Inpatient Note Addendum Reason: Additional Documentation Additional Information Cristhian was called on patient for rectal bleeding, and hypotension. Residents responded and I spoke with them. They ordered labs and patient was transferred to the unit. I assessed patient in the unit, he is found to cont to be hypotensive 66/43 with one 1L NS almost completed. I ordered another NS bolus for a total of 2L, along with 2 units PRBCs to anticipate a low HGB. Stool sample at bedside is a dark maroon color. Shortly after my assessment patient began to vomit blood. Peg tube placed to gravity with bright red blood draining. Patient has encephalopathy responds only to painful stimuli, opens eyes, skin cool to touch, pale conjunctiva, Lung sounds diminished, HR SR. After 1 1/2 L NS BP was 99/77, since vomiting patient has had increase oxygen demands. HGB resulted in a drop to 9.0 from 12.1. I discussed the case with Dr. Rivero who agreed to resume care. Plan: 1.Transfuse 2 units PRBCs 2. Protonix drip ordered 3.Consult GI 4. Keep peg tube to gravity 5. Transfer care to masticator Case was also discussed with Christal Rhodes Oct 18, 2016 03:51
[2016-10-18] MEDS: FREE WATER PEG SCH (04:00)
[2016-10-18] MEDS: SENNOSIDES 8.6 MG TAB GT SCH ×2 (04:45→16:37)
[2016-10-18] MEDS: LISINOPRIL 20 MG TAB G-TUBE SCH (04:45)
[2016-10-18] MEDS: PANTOPRAZOLE INJ 80 MG in SODIUM CHLORIDE 0.9% INJ 100 ML IV PUSH SCH ×2 (06:07→16:37)
--- NOTE | 2016-10-18 06:07 | PD.PROCEDR ---
Central Line Procedure REASON FOR PROCEDURE Central venous access PROCEDURE PERFORMED Central line placement: Right IJ CVL CONSENT Informed consent for procedure was not obtained and considered emergently due to acute blood loss anemia. The risks and benefits of the procedure were discussed to include but limited to bleeding, clot formation, infection, and even . ANESTHESIA Local injection of 1% Lidocaine DESCRIPTION OF THE PROCEDURE The patient was placed in supine, mild Trendelenburg position. The area was exposed and cleansed with ChloraPrep, times two. Large sterile drape was used to cover the patient, with the site exposed, under sterile conditions including cap, face mask, sterile gown, and sterile gloves. On single attempt, the introducer needle was inserted with negative pressure in syringe and venous flash was obtained. The guide wire was then advanced without any restriction and the needle was removed. The dilator was used without any complications. Using Seldinger technique the triple-lumen catheter was advanced over the guide wire to a depth of 16 centimeters. The guide wire was removed. All ports were aspirated with dark venous blood return and flushed easily with sterile saline. All ports were capped. Antibiotic disc was placed around central line at puncture site. The central line was secured to the skin with two interrupted 2.0 silk sutures. The area was bandaged with sterile see-through central line bandage. RADIOLOGICAL DATA Ultrasound guidance was used to locate the right internal jugular vein. Doppler /color flow was used to confirm venous flow. COMPLICATIONS: No apparent complications ESTIMATED BLOOD LOSS: Less than 1 cc. Ellis Bright MD Oct 18, 2016 06:07
--- NOTE | 2016-10-18 06:33 | RADRPT ---
EXAM DATE/TIME: 10/18/2016 06:04 [facility] COMPARISON: CHEST SINGLE AP, October 15, 2016, 6:24. INDICATIONS : Central line placement. MEDICAL HISTORY : Hypertension. SURGICAL HISTORY : Tracheostomy. ENCOUNTER: Subsequent ACUITY: 2 months PAIN SCORE: Non-responsive. LOCATION: Bilateral chest FINDINGS: Portable AP view of the chest demonstrates a normal-sized cardiac silhouette. Tracheostomy remains pr esent. Right IJ central line has been placed with distal tip in the superior vena cava. No pneumothor ax is visualized. Lungs are underinflated. CONCLUSION: Right IJ central line distal tip is in the SVC. No pneumothorax is visualized. Rakesh Robison MD on October 18, 2016 at 6:31 Board Certified Radiologist. This report was verified electronically.
--- NOTE | 2016-10-18 06:54 | HHI.CCPN ---
Subjective Remarks/Hospital Course This is a middle-aged male. Date of admission 08/26/2016. Past medical history is unknown. His real name is Rafy Ruiz. Haritha Ruiz [phone] is the health proxy. Per ED report, patient was acute onset 1 hour prior to admission of right upper and lower extremity weakness and dysarthria. Upon presentation to the ED, patient was quite hypertensive and had decreased responsiveness. Patient was intubated by ED physician. [address] head revealed a left intraparenchymal hemorrhage/basal ganglia with extension to the lateral ventricle with a 5 mm shift to the right. Neurosurgery was consulted/Dr. Croft who placed Right frontal ventriculostomy. Laboratories reveal potassium 2.8. Currently on Cardene drip at 15 mg an hour. SUBJ: Remains intubated, on fentanyl. Propofol on hold. On Cardene infusion at 1mg per hour. Ventric with 87 ml blood-tinged CSF since placement. ICP well controlled,. Patient's [id number] is at the bedside, is in [place] 08/28: continues to have poor neurologic exam. on Cardene at 5mg/hr this AM. EVD with blood-tinged CSF, patent. ICP controlled. not yet on sedation hold this AM to my exam. 08/29: no change in neuro exam. cardene persists for blood pressure control. 08/30: encephalopathy persists. still on cardene at 5mg/hr for blood pressure. 08/31: hypernatremia persists. poor neuro exam still. unable to tolerate sedation holiday due to hypertension. labetalol increased yesterday with only mild improvements. did not diureswell with lasix 20 yesterday. 09/01: Remains off sedation since yesterday. Appears to localize with left upper extremity. Blood pressure control improved. Urine output excellent 3.9 L in 24 hours, EVD with 192 mLoutput in 24 hours 09/02: No improvement in neurological function. 09/03: No change in neuro status. Still waiting for photo ID. 09/04: No change. Plan trach today to facilitate long-tern vent weaning. 09/05: Hypertensive. Will increase lisinopril and add lopressor. 09/06: Transitioning to oral hypertension meds. Trach site dry clean. 09/07: BP control acceptable but needs fine tuning. Diuresis has been adequate - hold for now. Tolerates up to 2 hours CPAP - now a long-term weaning problem. 09/08: BP control acceptable. Trying to convert to oral meds only. 09/09: BP control better. Fever, leukocytosis worrisome. 09/10: MSSA in sputum, GNR in urine. Start ceftriaxone, stop Vanc and Cefepime. D/C izaguirre. 09/11: WBC declining nicely. BP control still problematic, presently on Lopressor, Norvasc, Lisinopril, and Catapres (all large doses). 09/12: BP control improved. WBC improved after ceftriaxone started. 09/13: Finally on t-piece and looking strong enough to sustain. BP control improved. 10/18 CCM reconsulted following Halicat for GI bleeding. He had 2 large dark bloody BMs. SBP dropped to 60s. He then vomited some blood and then desaturated. Was on 28% Tpiece. Subjective: 10/18: Seen in examined. Ensure line placed emergently secondary to hypertension in a patient with active bleeding from PEG tube site. Minimal responsive on vent - #6 Shiley uncuffed. Transfused 2 units PRBCs and 2 L bolus 1. Objective Vital Signs Date Time Temp Pulse Resp B/P Pulse Ox O2 Delivery O2 Flow Rate FiO2 10/18/16 04:00 97.5 71 14 100/59 99 10/18/16 02:30 50 10/18/16 02:30 Trach Collar 5.00 Intake and Output 10/17/16 10/17/16 10/18/16 08:00 16:00 00:00 Intake Total 853 ml 888 ml 0 ml Output Total 350 ml 1250 ml 300 ml Balance 503 ml -362 ml -300 ml Result Diagram: 10/18/16 0247 10/18/16 0247 Imaging Last Impressions Chest X-Ray 10/18/16 0000 Signed Impressions: Service Date/Time: Tuesday, October 18, 2016 06:04 - CONCLUSION: Right IJ central line distal tip is in the SVC. No pneumothorax is visualized. Rakesh Robison MD Gastrostomy Tube Placement 09/19/16 0000 Signed Impressions: Service Date/Time: Monday, September 19, 2016 16:01 - CONCLUSION: Uncomplicated gastrostomy tube placement as above. Chaitanya Rondon MD Head CT 09/17/16 0600 Signed Impressions: Service Date/Time: Saturday, September 17, 2016 04:14 - CONCLUSION: 1. Slightly evolving left basal ganglia hemorrhage with surrounding edema and mass effect similar to September 08. Right frontal ventriculostomy tube unchanged. Right ventricular size relatively stable. Bishop Fulton MD Head Magnetic Resonance Angiography 08/27/16 0000 Signed Impressions: Service Date/Time: Saturday, August 27, 2016 16:49 - CONCLUSION: Negative MRA of the brain. Vargas Freitas MD FACR Brain MRI 08/27/16 0000 Signed Impressions: Service Date/Time: Saturday, August 27, 2016 16:49 - CONCLUSION: 1. Large thalamic hemorrhage as described above. Extensive periventricular white matter changes are noted. There is compression of the third ventricle. Ventriculostomy is seen in the right lateral ventricle. 2. Hemorrhage does extend down the white matter tracts to the level of the right cerebral peduncle. Vargas Freitas MD FACR Objective Remarks GENERAL: 61-year-old male, critically ill currently resting in bed via tracheostomy SKIN: Warm, dry. No rash HEAD: Prior scar from right ventriculostomy well-healed. EYES:. PERRL. MMM. NECK: Trachea midline. It IJ is clean dry and intact. CARDIOVASCULAR: Regular rate and rhythm. No murmurs/clicks gallops or rubs. RESPIRATORY: Clear to auscultation. Breath sounds equal bilaterally. mechanically ventilated. Tolerating T-piece. GASTROINTESTINAL: Abdomen soft, minimally tender around PEG tube site. Extubated in left upper quadrant with atb blood to drainage MUSCULOSKELETAL: Extremities without difficulty and peripheral edema.. NEUROLOGICAL: Flaccid right upper extremity, right lower extremity. Moving head and left upper/lower extremity spontaneously to pain. Nonverbal. 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 Neurosurgery/Dr. Croft. Right frontal twist drill hole ventriculostomy on 08/26 -- EEG 08/30: generalized slowing, no seizure activity. Neurologically unchanged since admission. CV: Admission with Hypertensive emergency - resolved Currently hypotensive likely secondary to hemorrhagic shock Daily holding hypertensive medications including metoprolol 100 twice a day, lisinopril 20 mg twice a day, Norvasc 10 mg daily, clonidine 0.2 mg 3 times a day and hydralazine 100 mg every 6 hours. CV. Currently 5. Will given additional bolus of crystalloid Follow-up EKG/troponin 1 now Echocardiogram this admission revealed EF 55%. No regional wall motion abnormality. Resp: Vent dependent respiratory failure T piece @ 28% #6 Joey uncuffed. Followed by Dr. White. Chest x-ray reveals no acute cardiopulmonary findings GI: Upper and lower GI bleed Acute Protein Calorie Malnutrition-mild Constipation Previously on Pepcid 20 mg twice a day. This is been on hold Tube feeds are currently off. Protonix drip initiated after 80 mg bolus followed by 8 cc milligrams an hour Serial hemoglobins Lovenox subcutaneous as been discontinued PEG tube was placed by Dr. Rondon/IR on 09/23 Currently to low intermittent wall suction : Izaguirre will be placed for accurate I/Os. Endo: Hyperglycemia of Critical Illness Sliding-scale insulin with Accu-Cheks every 4 hours to maintain euglycemia. Low regimen Renal: Oliguria Creatinine currently within normal limits. Currently normal saline 150 cc an hour. Accurate I's and Os Monitor urine output and recheck BMP this afternoon Heme: Acute blood loss anemia Transfuse 2 units PRBCs. Coags within normal limits. Serial H&H's. Consultation to gastroenterology for possible endoscopy. ID: Monitor for infection FEN: Replace per ICU electrolyte protocol. MSK: PT evaluate and treat Access -Right IJ CVL placed 10/18 Prophylaxis - GI - Protonix drip - DVT - SCD. Hold Lovenox subcutaneous Critical Care: The total critical care time was 35 minutes. Time to perform other separately billable procedures was not included in the critical care time. Ellis Bright MD Oct 18, 2016 06:54
[2016-10-18] MEDS ORDERED: SODIUM CHLOR 0.9% 1000 ML INJ 1,000 ML IV ONE (07:00)
[2016-10-18] MEDS ORDERED: NOREPINEPHRINE INJ 4 MG in SODIUM CHLOR 0.9% 250 ML INJ 246 ML IV SCH (07:15)
[2016-10-18] MEDS ORDERED: TERBUTALINE INJ 1 MG/ML AMP SQ PRN (07:15)
[2016-10-18] MEDS ORDERED: GLUCAGON 1 MG/ML VIAL OTHER PRN ×2 (07:30)
[2016-10-18] MEDS ORDERED: DEXTROSE 50% IN WATER 50 ML VIAL(D50) IV PUSH PRN (07:30)
[2016-10-18] MEDS: SODIUM CHLOR 0.9% 1000 ML INJ 1,000 ML IV SCH ×3 (07:39→20:16)
[2016-10-18] MEDS: INSULIN NovoLIN REGULAR SUPPLEMENTAL SCALE SQ SCH ×5 (08:00→23:39)
[2016-10-18 08:35] LABS: HEMATOCRIT 27.6 % (39.0-51.0); REVIEW FLAG FINAL
[2016-10-18 08:57] LABS: CREATINE KINASE 30 U/L (39-308)
[2016-10-18] MEDS: SODIUM CHLORIDE 0.9% FLUSH 5 ML FLUSH IV FLUSH SCH ×2 (09:00→20:45)
[2016-10-18] MEDS: BENEPROTEIN POWDER 1 PACK G-TUBE SCH ×3 (09:00→16:37)
[2016-10-18] MEDS: SODIUM CHLORIDE 0.9% FLUSH 5 ML FLUSH IVF SCH (09:00)
[2016-10-18] MEDS: ARTIFICIAL TEARS OPTH SOLN 15 ML BTL EACH EYE SCH ×3 (09:08→16:37)
[2016-10-18] MEDS: NEOMYCIN/POLYMYXIN/BACITRACIN OINT 15 GM TUBE TOPICAL SCH ×2 (09:08→20:45)
[2016-10-18] MEDS: PIPERACIL-TAZO 4.5 GM PREMIX 100 ML IV SCH ×3 (09:33→23:39)
[2016-10-18] MEDS: RESP: ALBUTEROL 2.5 MG/IPRATROPIUM 0.5 MG NEB (SCH) NEB ×3 (11:46→20:59)
--- NOTE | 2016-10-18 12:24 | PD.CONS ---
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 He is s/p right frontal ventriculostomy placement 08/26/16 that has since been removed. On admission, he was treated for hypertensive emergency, but this has since resolved. His condition improved and he was sent to the medical floor, where he was being treated for the above, as well as hypertension, left pinna cellulitis, protein energy malnutrition, and multiple electrolyte abnormalities. He underwent PEG tube placement by IR on 09/19/16. He was transferred back to the unit last night as a Halicat, for GI Bleeding consisting of dark bloody bowel movements, followed by hematemesis and associated hypotension. His H/H was 9.0/26.1 and he was given 2 units of PRBC. This is currently 9.6/27.6. He has both an NGT and PEG tube to suction, each with a small amount of dark maroon blood. The nurse reports that he has had a total of 3-4 dark bloody bowel movements. The patient is lethargic, but denies abdominal pain. It is unknown if he has ever had GI bleeding in the past. Called Healthcare Proxy Haritha Ruiz at to EGD- procedure, risks, benefits and she would like to proceed. (Wilma Putnam) PFSH Past Medical History Hypertension Past Surgical History Unable to obtain (Wilma Putnam) Coded Allergies: Iodinated Contrast Media (Verified Allergy, Unknown, syncopal episodes, 08/27/16) Medications Allergies Coded Allergies Type Severity Reaction Last Updated Verified Iodinated Contrast Media Allergy Unknown syncopal episodes 08/27/16 Yes Family History Unable to obtain due to patient's cognitive status Social History Unable to obtain (Wilma Putnam) Review of Systems ROS Unable to obtain. Dark maroon blood from PEG and NGT. Nurse reports dark bloody stool (Wilma Putnam) GI Exam Vitals I&O Vital Signs Date Time Temp Pulse Resp B/P Pulse Ox O2 Delivery O2 Flow Rate FiO2 10/18/16 10:00 100 10/18/16 08:00 92 10/18/16 08:00 98.5 92 15 115/65 98 10/18/16 07:00 98 T-Piece 28 10/18/16 04:00 97.5 71 14 100/59 99 10/18/16 02:30 100 50 10/18/16 02:30 99 Trach Collar 5.00 50 10/18/16 00:00 T-Piece 6.00 28 10/18/16 00:00 97.5 95 18 101/66 95 10/17/16 20:43 99 T-piece 6.00 28 10/17/16 20:00 97.3 77 18 112/63 98 10/17/16 20:00 81 10/17/16 20:00 T-Piece 6.00 28 10/17/16 16:00 98.6 98 20 152/90 97 10/17/16 14:20 96 T-piece 6.00 28 I/O 10/17/16 10/17/16 10/17/16 10/18/16 10/18/16 10/18/16 07:00 15:00 23:00 07:00 15:00 23:00 Intake Total 853 ml 888 ml 0 ml 2550 ml Output Total 350 ml 1250 ml 300 ml 0 ml Balance 503 ml -362 ml -300 ml 2550 ml Intake Oral 0 ml 0 ml 0 ml IV Total 2 ml 2050 ml Tube Feeding 403 ml 466 ml Packed Cells 500 ml Tube Irrigant 420 ml Other 450 ml Output Urine Total 350 ml 1250 ml 300 ml 0 ml # Bowel Movements 0 1 0 1 Imaging Last Impressions Chest X-Ray 10/18/16 0000 Signed Impressions: Service Date/Time: Tuesday, October 18, 2016 06:04 - CONCLUSION: Right IJ central line distal tip is in the SVC. No pneumothorax is visualized. Rakesh Robison MD Gastrostomy Tube Placement 09/19/16 0000 Signed Impressions: Service Date/Time: Monday, September 19, 2016 16:01 - CONCLUSION: Uncomplicated gastrostomy tube placement as above. Chaitanya Rondon MD Head CT 09/17/16 0600 Signed Impressions: Service Date/Time: Saturday, September 17, 2016 04:14 - CONCLUSION: 1. Slightly evolving left basal ganglia hemorrhage with surrounding edema and mass effect similar to September 08. Right frontal ventriculostomy tube unchanged. Right ventricular size relatively stable. Bishop Fulton MD Head Magnetic Resonance Angiography 08/27/16 0000 Signed Impressions: Service Date/Time: Saturday, August 27, 2016 16:49 - CONCLUSION: Negative MRA of the brain. Vargas Freitas MD FACR Brain MRI 08/27/16 0000 Signed Impressions: Service Date/Time: Saturday, August 27, 2016 16:49 - CONCLUSION: 1. Large thalamic hemorrhage as described above. Extensive periventricular white matter changes are noted. There is compression of the third ventricle. Ventriculostomy is seen in the right lateral ventricle. 2. Hemorrhage does extend down the white matter tracts to the level of the right cerebral peduncle. Vargas Freitas MD FACR Laboratory Test 10/18/16 10/18/16 10/18/16 10/18/16 02:47 02:52 06:00 08:00 White Blood Count 7.3 TH/MM3 Red Blood Count 2.87 MIL/MM3 Hemoglobin 9.0 GM/DL 9.6 GM/DL Hematocrit 26.1 % 27.6 % Mean Corpuscular Volume 91.0 FL Mean Corpuscular Hemoglobin 31.2 PG Mean Corpuscular Hemoglobin 34.3 % Concent Red Cell Distribution Width 13.0 % Platelet Count 307 TH/MM3 Mean Platelet Volume 11.5 FL Neutrophils (%) (Auto) 66.0 % Lymphocytes (%) (Auto) 19.3 % Monocytes (%) (Auto) 11.6 % Eosinophils (%) (Auto) 2.3 % Basophils (%) (Auto) 0.8 % Neutrophils # (Auto) 4.8 TH/MM3 Lymphocytes # (Auto) 1.4 TH/MM3 Monocytes # (Auto) 0.8 TH/MM3 Eosinophils # (Auto) 0.2 TH/MM3 Basophils # (Auto) 0.1 TH/MM3 CBC Comment DIFF FINAL Differential Comment Prothrombin Time 12.0 SEC Prothromb Time International 1.1 RATIO Ratio Activated Partial 25.9 SEC Thromboplast Time Fibrinogen 356 mg/dL Sodium Level 142 MEQ/L Potassium Level 3.7 MEQ/L Chloride Level 105 MEQ/L Carbon Dioxide Level 29.2 MEQ/L Anion Gap 8 MEQ/L Blood Urea Nitrogen 28 MG/DL Creatinine 0.92 MG/DL Estimat Glomerular Filtration 84 ML/MIN Rate Random Glucose 213 MG/DL Calcium Level 8.9 MG/DL Phosphorus Level 4.5 MG/DL Magnesium Level 2.2 MG/DL Total Bilirubin 0.3 MG/DL Aspartate Amino Transf 16 U/L (AST/SGOT) Alanine Aminotransferase 35 U/L (ALT/SGPT) Alkaline Phosphatase 74 U/L Total Protein 6.0 GM/DL Albumin 2.4 GM/DL Blood Type A POSITIVE Antibody Screen NEGATIVE Crossmatch Leukocyte-Reduced Red Blood Cells Blood Bank Comment Urine Eosinophils NONE SEEN /HPF Lactic Acid Level 1.3 mmol/L Total Creatine Kinase 30 U/L Troponin I LESS THAN 0.02 NG/ML Physical Examination HEENT: Normocephalic; atraumatic; no jaundice. NECK: Tracheostomy, small amount old bloody secretions in tubing CHEST: Course, Tracheostomy. CARDIAC: RRR ABDOMEN: Soft, nondistended, nontender; no hepatosplenomegaly; bowel sounds are present in all four quadrants. PEG tube to LIWS- small amount dark maroon blood EXTREMITIES: No clubbing, cyanosis, or edema. SKIN: Normal; no rash; no jaundice. PHOTOGRAMMETRIC TECH: Lethargic. Nods appropriately. moves left side. (Wilma Putnam) Assessment and Plan Plan ASSESSMENT: - GIB, Upper. Pt tx to ICU last night as Halicat for GI bleeding. He has had a total of 3-4 bloody bowel movements and an episode of hematemesis. He has an NGT and PEG both to LIWS and these are draining a small amount of dark maroon blood. He denies abdominal pain. His H/H was 9.0/26.1 and he was given 2 units of PRBC. This is currently 9.6/27.6. Called Healthcare Proxy Haritha Ruiz at to EGD- procedure, risks, benefits and she would like to proceed. Protonix Gtt. - Anemia, acute blood loss. S/P 2 units PRBC. 9.6/27.6. 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 - Protein energy malnutrition. S/P PEG tube by IR on 09/19/16. Pack Worker recommends Glucerna 1.5 @ 60mls/hr - Hypertension, left pinna cellulitis, and multiple electrolyte abnormalities. per primary PLAN: - Plan for EGD today - Obtain consents (spoke to Healthcare Proxy) - NPO - PEG to LIWS - PRotonix gtt - Monitor HH - Transfuse as necessary - Supportive care - Further recommendations to follow based on results of above - Pt seen and examined by Dr. Singletary and myself and this note is written on his behalf (Wilma Putnam) Physician Comments Seen and examined with LEX, transfuse as needed, Protonix drip. Egd planned for today. Discussed with Dr. Bright. Thank you (Mike Singletary MD) Wilma Putnam Oct 18, 2016 12:24 Mike Singletary MD Oct 18, 2016 13:11
--- NOTE | 2016-10-18 12:30 | RADRPT ---
EXAM DATE/TIME: 10/18/2016 10:53 [facility] COMPARISON: No previous studies available for comparison. INDICATIONS : Increased labs. MEDICAL HISTORY : Hypertension. SURGICAL HISTORY : None. ENCOUNTER: Initial ACUITY: 1 day PAIN SCORE: Nonresponsive. LOCATION: Bilateral flank MEASUREMENTS: RIGHT KIDNEY: 10.3 x 6.3 x 6.2 cm LEFT KIDNEY: 10.8 x 6.2 x 5.3 cm FINDINGS: RIGHT KIDNEY: Unremarkable with no hydronephrosis. LEFT KIDNEY: Left kidney contains a small 1 cm cyst. There is no hydronephrosis. BLADDER: Unremarkable. CONCLUSION: Small left renal cyst. Otherwise, negative. Vargas Freitas MD FACR on October 18, 2016 at 12:24 Board Certified Radiologist. This report was verified electronically.
--- NOTE | 2016-10-18 14:05 | HHI.PR ---
Subjective Remarks Awake and On a T Bar 28 %. Was transferred to ICU for Vomiting and a GI bleed. Was transfused for HGb <9.0 Moves left arm and leg. No new change in neuro status Objective Vital Signs Date Time Temp Pulse Resp B/P Pulse Ox O2 Delivery O2 Flow Rate FiO2 10/18/16 12:00 98.8 110 16 130/66 100 10/18/16 12:00 110 10/18/16 10:00 100 10/18/16 08:00 92 10/18/16 08:00 98.5 92 15 115/65 98 10/18/16 07:00 98 T-Piece 28 10/18/16 04:00 97.5 71 14 100/59 99 10/18/16 02:30 100 50 10/18/16 02:30 99 Trach Collar 5.00 50 10/18/16 00:00 T-Piece 6.00 28 10/18/16 00:00 97.5 95 18 101/66 95 10/17/16 20:43 99 T-piece 6.00 28 10/17/16 20:00 97.3 77 18 112/63 98 10/17/16 20:00 81 10/17/16 20:00 T-Piece 6.00 28 10/17/16 16:00 98.6 98 20 152/90 97 10/17/16 14:20 96 T-piece 6.00 28 I/O 10/17/16 10/17/16 10/17/16 10/18/16 10/18/16 10/18/16 07:00 15:00 23:00 07:00 15:00 23:00 Intake Total 853 ml 888 ml 0 ml 2550 ml Output Total 350 ml 1250 ml 300 ml 0 ml Balance 503 ml -362 ml -300 ml 2550 ml Intake Oral 0 ml 0 ml 0 ml IV Total 2 ml 2050 ml Tube Feeding 403 ml 466 ml Packed Cells 500 ml Tube Irrigant 420 ml Other 450 ml Output Urine Total 350 ml 1250 ml 300 ml 0 ml # Bowel Movements 0 1 0 1 Result Diagram: 10/18/16 0800 10/18/16 0247 Objective Remarks This is an averagely built middle-aged man who is responsive on a trach collar. He has weakness of right extremities. HEENT: Head normocephalic. Pupils reactive. Throat is clear. NECK: Supple without venous distension. No thyromegaly or lymphadenopathy. CHEST: Decreased breath sounds at the bases .Occ wheeze heard . HEART: The heart sounds are regular, S1-S2. No murmur. No S3. ABDOMEN: The abdomen is soft, nontender. Bowel sounds are active. No organomegaly. EXTREMITIES: Weakness of the right extremities. The patient does move his left extremities., RECTAL: Exam is deferred. Assessment and Plan Assessment and Plan IMPRESSION 1. Status post left basal ganglia intraparenchymal hemorrhage with the right frontal ventriculostomy placement. 2. Acute respiratory failure resolved. 3. Bibasilar atelectasis and pneumonia. 4. History of uncontrolled hypertension. 5. Right hemiplegia. 6. GI Bleed with Anemia Plan : 1. Cont on T Bar 28 %. 2. Trach suction and lavage prn. 3. Nebs bid , duoneb. 4. EGD. 5. Tube feeds at 60 CC. 6. PT evaluation. 7. CBC,BMP in am Lynne White MD Oct 18, 2016 14:05
[2016-10-18 14:17] LABS: REVIEW FLAG FINAL
[2016-10-18] MEDS ORDERED: PROPOFOL 200 MG/20 ML AMP IV ONE (14:58)
[2016-10-18 15:07] LABS: BICARBONATE 26.5 MEQ/L (21.0-32.0); POTASSIUM 3.5 MEQ/L (3.5-5.1)
--- NOTE | 2016-10-18 15:13 | GIPROC ---
[facility] [address] [facility]. [facility], [address] EGD PROCEDURE REPORT EXAM DATE: 10/18/2016 PATIENT NAME: Rafy Ruiz MR #: [id number] BIRTHDATE: 1955 ATTENDING: Mike Singletary MD ORDER #: [id number] FINANCE PROFESSIONAL: Katja Sarabia Dobbs, Deborah, and Babs Marques STATUS: inpatient INDICATIONS: The patient is a 61 yr old male here for an EGD due to acute post hemorrhagic anemia and melena PROCEDURE PERFORMED: EGD w/ ablation MEDICATIONS: Per Anesthesia and None. TOPICAL ANESTHETIC: CONSENT: The patient understands the risks and benefits of the procedure and understands that these risks include, but are not limited to: sedation, allergic reaction, infection, perforation and/or bleeding. Alternative means of evaluation and treatment include, among others: physical exam, x-rays, and/or surgical intervention. The patient elects to proceed with this endoscopic procedure. medical equipment was checked for proper function. Hand hygiene and appropriate measures for infection prevention was taken. After the risks, benefits and alternatives of the procedure were thoroughly explained, Informed consent was verified, confirmed and timeout was successfully executed by the treatment team. The patient was anesthetized with topical anesthesia and the Pentax EG-[id number] endoscope was introduced through the mouth and advanced to the second portion of the duodenum. Retroflexed views revealed no abnormalities The gastroscope was then slowly withdrawn and removed. STOMACH: G tube in place. Old blood in stomach. ESOPHAGUS: A Gabrielle-Stewart tear with evidence of recent bleeding was found in the distal esophagus. Ablation performed using Heater probe. Good results. DUODENUM: The duodenal mucosa appeared normal. ADVERSE EVENTS: There were no complications. IMPRESSIONS: 1. G tube in place 2. Old blood in stomach 3. Gabrielle-Stewart tear in the distal esophagus 4. Ablation performed using Heater probe. Good results 5. Normal duodenal mucosa 6. Retroflexed views revealed no abnormalities RECOMMENDATIONS: 1. Continue PPI 2. Monitor labs. IV protonix, G tube to gravity PATIENT CONDITION: stable DISPOSITION: Inpatient REPEAT EXAM: Return as needed for EGD Mike Singletary MD eSigned: Mike Singletary MD 10/18/2016 3:13 PM cc: PATIENT NAME: Joseph Rafy Adalberto MR#: [id number]
[2016-10-18] MEDS: METOPROLOL TARTRATE 5 MG/5 ML VIAL IV PUSH SCH ×4 (16:00→23:39)
[2016-10-18] MEDS ORDERED: hydrALAZINE HCL 20 MG/ML VIAL IV PUSH PRN (17:45)
[2016-10-18] MEDS ORDERED: NITROGLYCERIN 2% OINT 1 GM PACKET TOPICAL PRN (17:45)
[2016-10-18 20:57] LABS: HEMATOCRIT 25.2 % (39.0-51.0); REVIEW FLAG FINAL
[2016-10-18] MEDS: LABETALOL HCL 100 MG/20 ML VIAL IV PUSH PRN ×2 (21:26→22:32)
[2016-10-18] MEDS: hydrALAZINE HCL 20 MG/ML VIAL IV PUSH PRN (23:10)
--- NOTE | 2016-10-18 23:59 | EKG ---
Date Performed: 10/18/2016 Time Performed: 13:57:56 PTAGE: 61 years EKG: Sinus tachycardia. Inferior infarct - age undetermined Possible left ventricular hypertroph y Anterolateral ST-T changes are probably due to ventricular hypertrophy Abnormal ECG PREVIOUS TRACING : 10/18/2016 10.09 DOCTOR: Anai Beasley Interpretating Date/Time 10/18/2016 23:57:53
[2016-10-19] VITALS (15 sets, daily range): BP systolic 133–174; BP diastolic 78–93; PULSE 77–126; RESP 18–25; TEMP 98.1–99.7; O2SAT 95–100
--- NOTE | 2016-10-19 00:10 | EKG ---
Date Performed: 10/18/2016 Time Performed: 10:09:55 PTAGE: 61 years EKG: Sinus rhythm MODERATE VOLTAGE CRITERIA FOR LVH, CONSIDER NORMAL VARIANT NONSPECIFIC ST & T-WAVE ABNORMALITY LIZETH CABALLERO ECG PREVIOUS TRACING : 08/26/2016 15.56 DOCTOR: Anai Beasley Interpretating Date/Time 10/19/2016 00:08:43
[2016-10-19] MEDS: LABETALOL HCL 100 MG/20 ML VIAL IV PUSH PRN ×4 (01:04→10:25)
[2016-10-19] MEDS: METOPROLOL TARTRATE 5 MG/5 ML VIAL IV PUSH SCH ×5 (03:31→20:14)
[2016-10-19] MEDS: SODIUM CHLOR 0.9% 1000 ML INJ 1,000 ML IV SCH ×2 (03:32→10:10)
[2016-10-19] MEDS: INSULIN NovoLIN REGULAR SUPPLEMENTAL SCALE SQ SCH ×5 (04:00→20:00)
[2016-10-19] MEDS: hydrALAZINE HCL 20 MG/ML VIAL IV PUSH PRN ×2 (04:08→08:25)
[2016-10-19] MEDS: RESP: ALBUTEROL 2.5 MG/IPRATROPIUM 0.5 MG NEB (SCH) NEB ×4 (04:12→21:24)
[2016-10-19 04:23] LABS: AUTOMATED NEUTROPHIL # 2.8 TH/MM3 (1.8-7.7); BASOPHIL % 0.6 % (0.0-2.0); EOSINOPHIL # 0.1 TH/MM3 (0-0.4); EOSINOPHIL % 1.9 % (0.0-4.0); HEMATOCRIT 27.3 % (39.0-51.0); HEMO FLAGS DIFF FINAL; LYMPH % 27.5 % (9.0-44.0); LYMPHOCYTE # 1.4 TH/MM3 (1.0-4.8); MEAN CELL VOLUME 88.4 FL (80.0-100.0); MEAN CORPUSCULAR HEMOGLOBIN 31.3 PG (27.0-34.0); MEAN CORPUSCULAR HGB CONC 35.4 % (32.0-36.0); MONO % 15.4 % (0.0-8.0); NEUT % 54.6 % (16.0-70.0); PLATELET COUNT 185 TH/MM3 (150-450); RED BLOOD COUNT 3.08 MIL/MM3 (4.50-5.90); WHITE BLOOD COUNT 5.2 TH/MM3 (4.0-11.0)
[2016-10-19 04:39] LABS: ALKALINE PHOSPHATASE 75 U/L (45-117); ALT (GPT) 38 U/L (12-78); ANION GAP 8 MEQ/L (5-15); AST (GOT) 18 U/L (15-37); BICARBONATE 27.6 MEQ/L (21.0-32.0); BLOOD UREA NITROGEN 21 MG/DL (7-18); CHLORIDE 112 MEQ/L (98-107); GLOMERULAR FILTRATION RATE 155 ML/MIN (>89); MAGNESIUM 1.8 MG/DL (1.5-2.5); SODIUM (NA) 148 MEQ/L (136-145); TOTAL BILIRUBIN ADULT 0.7 MG/DL (0.2-1.0)
[2016-10-19 04:41] LABS: POTASSIUM 2.9 MEQ/L (3.5-5.1)
[2016-10-19] MEDS: POTASSIUM CHLOR 20 MEQ PREMIX 100 ML IV SCH ×2 (05:22→06:43)
--- NOTE | 2016-10-19 05:23 | RADRPT ---
EXAM DATE/TIME: 10/19/2016 03:57 [facility] COMPARISON: CHEST SINGLE AP, October 18, 2016, 6:04. INDICATIONS : Shortness of breath. MEDICAL HISTORY : Hypertension. SURGICAL HISTORY : Tracheostomy. ENCOUNTER: Subsequent ACUITY: 2 months PAIN SCORE: Non-responsive. LOCATION: Bilateral chest FINDINGS: Portable AP view of the chest demonstrates a normal-sized cardiac silhouette. Right IJ line and trach eostomy remain present. Lungs are underinflated with atelectasis at the bases. No effusion, consolida tion, or pneumothorax is identified. The bones and soft tissues demonstrate no acute finding. CONCLUSION: Underinflated examination with atelectasis at the lung bases. Otherwise, no acute finding is identifi ed. Rakesh Robison MD on October 19, 2016 at 5:21 Board Certified Radiologist. This report was verified electronically.
[2016-10-19] MEDS: SENNOSIDES 8.6 MG TAB GT SCH ×2 (05:25→17:27)
[2016-10-19] MEDS: PANTOPRAZOLE INJ 80 MG in SODIUM CHLORIDE 0.9% INJ 100 ML IV PUSH SCH ×2 (05:25→16:00)
[2016-10-19] MEDS: BENEPROTEIN POWDER 1 PACK G-TUBE SCH ×2 (08:25→13:00)
[2016-10-19] MEDS: ARTIFICIAL TEARS OPTH SOLN 15 ML BTL EACH EYE SCH ×3 (08:25→17:27)
[2016-10-19] MEDS: PIPERACIL-TAZO 4.5 GM PREMIX 100 ML IV SCH ×2 (08:25→17:27)
[2016-10-19] MEDS: NEOMYCIN/POLYMYXIN/BACITRACIN OINT 15 GM TUBE TOPICAL SCH ×2 (08:26→21:00)
[2016-10-19] MEDS: SODIUM CHLORIDE 0.9% FLUSH 5 ML FLUSH IVF SCH (08:26)
[2016-10-19] MEDS: SODIUM CHLORIDE 0.9% FLUSH 5 ML FLUSH IV FLUSH SCH ×2 (08:27→21:04)
--- NOTE | 2016-10-19 11:53 | HHI.CCPN ---
Subjective Remarks/Hospital Course This is a middle-aged male. Date of admission 08/26/2016. Past medical history is unknown. His real name is Rafy Ruiz. Haritha Ruiz [phone] is the health proxy. Per ED report, patient was acute onset 1 hour prior to admission of right upper and lower extremity weakness and dysarthria. Upon presentation to the ED, patient was quite hypertensive and had decreased responsiveness. Patient was intubated by ED physician. [address] head revealed a left intraparenchymal hemorrhage/basal ganglia with extension to the lateral ventricle with a 5 mm shift to the right. Neurosurgery was consulted/Dr. Croft who placed Right frontal ventriculostomy. Laboratories reveal potassium 2.8. Currently on Cardene drip at 15 mg an hour. SUBJ: Remains intubated, on fentanyl. Propofol on hold. On Cardene infusion at 1mg per hour. Ventric with 87 ml blood-tinged CSF since placement. ICP well controlled,. Patient's [id number] is at the bedside, is in [place] 08/28: continues to have poor neurologic exam. on Cardene at 5mg/hr this AM. EVD with blood-tinged CSF, patent. ICP controlled. not yet on sedation hold this AM to my exam. 08/29: no change in neuro exam. cardene persists for blood pressure control. 08/30: encephalopathy persists. still on cardene at 5mg/hr for blood pressure. 08/31: hypernatremia persists. poor neuro exam still. unable to tolerate sedation holiday due to hypertension. labetalol increased yesterday with only mild improvements. did not diureswell with lasix 20 yesterday. 09/01: Remains off sedation since yesterday. Appears to localize with left upper extremity. Blood pressure control improved. Urine output excellent 3.9 L in 24 hours, EVD with 192 mLoutput in 24 hours 09/02: No improvement in neurological function. 09/03: No change in neuro status. Still waiting for photo ID. 09/04: No change. Plan trach today to facilitate long-tern vent weaning. 09/05: Hypertensive. Will increase lisinopril and add lopressor. 09/06: Transitioning to oral hypertension meds. Trach site dry clean. 09/07: BP control acceptable but needs fine tuning. Diuresis has been adequate - hold for now. Tolerates up to 2 hours CPAP - now a long-term weaning problem. 09/08: BP control acceptable. Trying to convert to oral meds only. 09/09: BP control better. Fever, leukocytosis worrisome. 09/10: MSSA in sputum, GNR in urine. Start ceftriaxone, stop Vanc and Cefepime. D/C izaguirre. 09/11: WBC declining nicely. BP control still problematic, presently on Lopressor, Norvasc, Lisinopril, and Catapres (all large doses). 09/12: BP control improved. WBC improved after ceftriaxone started. 09/13: Finally on t-piece and looking strong enough to sustain. BP control improved. 10/18 CCM reconsulted following Halicat for GI bleeding. He had 2 large dark bloody BMs. SBP dropped to 60s. He then vomited some blood and then desaturated. Was on 28% Tpiece. 10/18: Seen in examined. Ensure line placed emergently secondary to hypertension in a patient with active bleeding from PEG tube site. Minimal responsive on vent - #6 Shiley uncuffed. Transfused 2 units PRBCs and 2 L bolus 1. Subjective: 10/19: EGD revealed Gabrielle Stewart tear status post ablation. No active bleeding the interim. Tracheostomy changed to a #6 Shiley fenestrated cuffed trach due to hemoptysis. Source likely esophagus/NG tube placed. Hypertensive overnight requiring when necessary's. Objective Vital Signs Date Time Temp Pulse Resp B/P Pulse Ox O2 Delivery O2 Flow Rate FiO2 10/19/16 10:00 112 10/19/16 08:05 100 T-piece 5.00 28 10/19/16 08:00 98.1 21 174/83 Intake and Output 10/18/16 10/18/16 10/19/16 08:00 16:00 00:00 Intake Total 2550 ml 1707 ml 1386 ml Output Total 0 ml 250 ml 2650 ml Balance 2550 ml 1457 ml -1264 ml Result Diagram: 10/19/16 0350 10/19/16 0350 Other Results Microbiology Date/Time Procedure Status Source Growth 10/18/16 14:15 Gram Stain - Final Resulted Sputum Endotracheal 10/18/16 14:15 Sputum Culture Resulted Sputum Endotracheal Pending Imaging Last Impressions Chest X-Ray 10/19/16599 Signed Impressions: Service Date/Time: Wednesday, October 19, 2016 03:57 - CONCLUSION: Underinflated examination with atelectasis at the lung bases. Otherwise, no acute finding is identified. Rakesh Robison MD Renal Ultrasound 10/18/16 Signed Impressions: Service Date/Time: Tuesday, October 18, 2016 10:53 - CONCLUSION: Small left renal cyst. Otherwise, negative. Vargas Freitas MD FACR Gastrostomy Tube Placement 09/19/16 Signed Impressions: Service Date/Time: Monday, September 19, 2016 16:01 - CONCLUSION: Uncomplicated gastrostomy tube placement as above. Chaitanya Rondon MD Head CT 09/17/16599 Signed Impressions: Service Date/Time: Saturday, September 17, 2016 04:14 - CONCLUSION: 1. Slightly evolving left basal ganglia hemorrhage with surrounding edema and mass effect similar to September 08. Right frontal ventriculostomy tube unchanged. Right ventricular size relatively stable. Bishop Fulton MD Head Magnetic Resonance Angiography 08/27/16 Signed Impressions: Service Date/Time: Saturday, August 27, 2016 16:49 - CONCLUSION: Negative MRA of the brain. Vargas Freitas MD FACR Brain MRI 08/27/16 Signed Impressions: Service Date/Time: Saturday, August 27, 2016 16:49 - CONCLUSION: 1. Large thalamic hemorrhage as described above. Extensive periventricular white matter changes are noted. There is compression of the third ventricle. Ventriculostomy is seen in the right lateral ventricle. 2. Hemorrhage does extend down the white matter tracts to the level of the right cerebral peduncle. Vargas Freitas MD FACR Objective Remarks GENERAL: 61-year-old male, critically ill currently resting in bed via tracheostomy SKIN: Warm, dry. No rash HEAD: Prior scar from right ventriculostomy well-healed. EYES:. PERRL. MMM. NECK: Trachea midline. Right IJ is clean dry and intact. CARDIOVASCULAR: Regular rate and rhythm. No murmurs/clicks gallops or rubs. RESPIRATORY: Clear to auscultation. Breath sounds equal bilaterally. mechanically ventilated. Tolerating T-piece. GASTROINTESTINAL: Abdomen soft, minimally tender around PEG tube site. Extubated in left upper quadrant with tab blood to drainage MUSCULOSKELETAL: Extremities without difficulty and peripheral edema.. NEUROLOGICAL: Flaccid right upper extremity, right lower extremity. Moving head and left upper/lower extremity spontaneously to pain. Nonverbal. 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 Neurosurgery/Dr. Croft. Right frontal twist drill hole ventriculostomy on 08/26 -- EEG 08/30: generalized slowing, no seizure activity. Neurologically unchanged since admission. CV: Admission with Hypertensive emergency - resolved Currently hypotensive likely secondary to hemorrhagic shock Daily holding hypertensive medications including metoprolol 100 twice a day, lisinopril 20 mg twice a day, Norvasc 10 mg daily, clonidine 0.2 mg 3 times a day and hydralazine 100 mg every 6 hours. Restart Lopressor 5 IV every 4, Prinivil 20 twice a day, hydralazine 50 3 times a day and Norvasc 5 twice a day when able. Needed labetalol/hydralazine and Nitropaste CV. Currently 10 Will given additional bolus of crystalloid Follow-up EKG/troponin 1 now Echocardiogram this admission revealed EF 55%. No regional wall motion abnormality. Resp: Vent dependent respiratory failure T piece @ 28% #6 Shiley uncuffed. Followed by Dr. White. Chest x-ray reveals no acute cardiopulmonary findings GI: Gabrielle-Stewart tear status post ablation Acute Protein Calorie Malnutrition-mild Constipation LEONCIO 10/18 revealed Gabrielle-Stewart tear status post ablation. Low blood in stomach. Normal duodenum. Retroflex negative. Previously on Pepcid 20 mg twice a day. This is been on hold Tube feeds are currently off. Hopefully resume today Protonix drip initiated after 80 mg bolus followed by 8 cc milligrams an hour Serial hemoglobins have been stable Lovenox subcutaneous has been discontinued PEG tube was placed by Dr. Rondon/IR on 09/23 PEG tube Currently to gravity : Izaguirre will be placed for accurate I/Os. Endo: Hyperglycemia of Critical Illness Sliding-scale insulin with Accu-Cheks every 4 hours to maintain euglycemia. Low regimen Renal: Oliguria - resolving Creatinine currently within normal limits. Currently normal saline 150 cc an hour. Switch to have oral saline with 20 mEq KCl at 84 cc an hour Accurate I's and Os Monitor urine output and recheck BMP this afternoon Heme: Acute blood loss anemia Transfuse 2 units PRBCs. Coags within normal limits. Serial H&H's. ID: Monitor for infection Started on Zosyn empirically for aspiration day #2 Sputum 10/18 pending FEN: Hypernatremia Hypokalemia Replace per ICU electrolyte protocol. MSK: PT evaluate and treat Access -Right IJ CVL placed 10/18 Prophylaxis - GI - Protonix drip - DVT - SCD. Hold Lovenox subcutaneous Critical Care: The total care time was 35 minutes. Time to perform other separately billable procedures was not included in the critical care time. Ellis Bright MD Oct 19, 2016 11:53
[2016-10-19] MEDS: 1/2 NS + KCL 20 MEQ INJ 1,000 ML IV SCH ×2 (12:21→23:55)
--- NOTE | 2016-10-19 13:21 | HHI.GIFU ---
Subjective Remarks 61 yo male lying in bed in no apparent distress. (Jackie Taylor) Objective Vitals I&O Vital Signs Date Time Temp Pulse Resp B/P Pulse Ox O2 Delivery O2 Flow Rate FiO2 10/19/16 12:00 98.1 103 18 158/84 100 10/19/16 12:00 103 10/19/16 10:00 112 10/19/16 08:05 100 T-piece 5.00 28 10/19/16 08:00 77 10/19/16 08:00 98.1 104 21 174/83 100 10/19/16 07:00 98 T-Piece 28 10/19/16 06:00 91 10/19/16 04:00 98.6 104 21 174/93 100 10/19/16 04:00 104 10/19/16 02:00 126 10/19/16 00:00 126 10/19/16 00:00 99.7 108 24 165/85 100 10/18/16 22:00 112 10/18/16 20:58 100 T-piece 5.00 28 10/18/16 20:00 107 10/18/16 20:00 99.8 99 21 158/90 99 10/18/16 19:00 98 T-Piece 28 10/18/16 18:00 122 10/18/16 16:00 98.5 86 14 139/93 100 10/18/16 16:00 86 10/18/16 14:00 121 I/O 10/18/16 10/18/16 10/18/16 10/19/16 10/19/16 10/19/16 07:00 15:00 23:00 07:00 15:00 23:00 Intake Total 2550 ml 1707 ml 1386 ml 1317 ml Output Total 0 ml 250 ml 2650 ml 3900 ml Balance 2550 ml 1457 ml -1264 ml -2583 ml Intake Oral 0 ml IV Total 2050 ml 1707 ml 1386 ml 1317 ml Packed Cells 500 ml Output Urine Total 0 ml 100 ml 2450 ml 3800 ml Gastric Drainage Total 150 ml 200 ml 100 ml # Bowel Movements 1 2 Laboratory Laboratory Tests Test 10/18/16 10/18/16 10/19/16 14:01 20:40 03:50 Hemoglobin 9.0 8.9 9.6 Hematocrit 26.0 25.2 27.3 Sodium Level 148 148 Potassium Level 3.5 2.9 Chloride Level 114 112 Carbon Dioxide Level 26.5 27.6 Anion Gap 8 8 Blood Urea Nitrogen 41 21 Creatinine 0.64 0.54 Estimat Glomerular Filtration 127 155 Rate Random Glucose 121 107 Calcium Level 8.2 9.0 White Blood Count 5.2 Red Blood Count 3.08 Mean Corpuscular Volume 88.4 Mean Corpuscular Hemoglobin 31.3 Mean Corpuscular Hemoglobin 35.4 Concent Red Cell Distribution Width 14.0 Platelet Count 185 Mean Platelet Volume 10.7 Neutrophils (%) (Auto) 54.6 Lymphocytes (%) (Auto) 27.5 Monocytes (%) (Auto) 15.4 Eosinophils (%) (Auto) 1.9 Basophils (%) (Auto) 0.6 Neutrophils # (Auto) 2.8 Lymphocytes # (Auto) 1.4 Monocytes # (Auto) 0.8 Eosinophils # (Auto) 0.1 Basophils # (Auto) 0.0 CBC Comment DIFF FINAL Differential Comment Lactic Acid Level 1.0 Phosphorus Level 2.7 Magnesium Level 1.8 Total Bilirubin 0.7 Aspartate Amino Transf 18 (AST/SGOT) Alanine Aminotransferase 38 (ALT/SGPT) Alkaline Phosphatase 75 Total Protein 6.6 Albumin 2.9 Date/Time Procedure Status Source Growth 10/18/16 14:15 Gram Stain - Final Resulted Sputum Endotracheal 10/18/16 14:15 Sputum Culture Resulted Sputum Endotracheal Pending Imaging Last Impressions Chest X-Ray 10/19/16 0600 Signed Impressions: Service Date/Time: Wednesday, October 19, 2016 03:57 - CONCLUSION: Underinflated examination with atelectasis at the lung bases. Otherwise, no acute finding is identified. Rakesh Robison MD Renal Ultrasound 10/18/16 0000 Signed Impressions: Service Date/Time: Tuesday, October 18, 2016 10:53 - CONCLUSION: Small left renal cyst. Otherwise, negative. Vargas Freitas MD FACR Gastrostomy Tube Placement 09/19/16 0000 Signed Impressions: Service Date/Time: Monday, September 19, 2016 16:01 - CONCLUSION: Uncomplicated gastrostomy tube placement as above. Chaitanya Rondon MD Head CT 09/17/16 0600 Signed Impressions: Service Date/Time: Saturday, September 17, 2016 04:14 - CONCLUSION: 1. Slightly evolving left basal ganglia hemorrhage with surrounding edema and mass effect similar to September 08. Right frontal ventriculostomy tube unchanged. Right ventricular size relatively stable. Bishop Fulton MD Head Magnetic Resonance Angiography 08/27/16 0000 Signed Impressions: Service Date/Time: Saturday, August 27, 2016 16:49 - CONCLUSION: Negative MRA of the brain. Vargas Freitas MD FACR Brain MRI 08/27/16 0000 Signed Impressions: Service Date/Time: Saturday, August 27, 2016 16:49 - CONCLUSION: 1. Large thalamic hemorrhage as described above. Extensive periventricular white matter changes are noted. There is compression of the third ventricle. Ventriculostomy is seen in the right lateral ventricle. 2. Hemorrhage does extend down the white matter tracts to the level of the right cerebral peduncle. Vargas Freitas MD FACR Physical Exam HEENT: PERRL. NECK: Neck is supple,R IJ tube CDI CHEST: CTA on vent CARDIAC: RRR with no murmur gallop or rubs. ABDOMEN: Soft, PEG site, with minimal tenderness surrounding EXTREMITIES: No clubbing, cyanosis, or edema. SKIN: Normal; no rash; no jaundice. 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 EGD 10/18/16 showed Gabrielle-Stewart tear in distal esophagus, s/p ablation. Low blood in stomach. Normal duodenum. Retroflex negative. H/H stable , today 9.6/27.3 . - Anemia, acute blood loss. S/P 2 units PRBC. HH 9./27.3. 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 - Protein energy malnutrition. S/P PEG tube by IR on 09/19/16. Process Controls Technician recommends Glucerna 1.5 @ 60mls/hr. TF currently off. - Hypertension, left pinna cellulitis, and multiple electrolyte abnormalities. per primary PLAN: - NPO - PEG gravity - Start TF - PRotonix gtt - Monitor HH - Transfuse as necessary - Supportive care - Further recommendations to follow based on results of above Pt seen and examined by Dr. Singletary and myself and this note is written on his behalf (Jackie Taylor) Physician Comments Seen and examined with ANGLE BENDER, no active bleeding reported. H/H stable. Can start TF as tolerated. Monitor labs (Mike Singletary MD) Jackie Taylor Oct 19, 2016 13:21 Mike Singletary MD Oct 19, 2016 14:03
[2016-10-19] MEDS: hydrALAZINE HCL 50 MG TAB PO SCH ×2 (14:00→22:39)
--- NOTE | 2016-10-19 14:41 | HHI.PR ---
Subjective Remarks Awake and On a T Bar 28 %. Was transferred to ICU for Vomiting and a GI bleed. Had EGD and has a dayanara Stewart tear. No further bleed noted No new change in neuro status Objective Vital Signs Date Time Temp Pulse Resp B/P Pulse Ox O2 Delivery O2 Flow Rate FiO2 10/19/16 12:00 98.1 103 18 158/84 100 10/19/16 12:00 103 10/19/16 10:00 112 10/19/16 08:05 100 T-piece 5.00 28 10/19/16 08:00 77 10/19/16 08:00 98.1 104 21 174/83 100 10/19/16 07:00 98 T-Piece 28 10/19/16 06:00 91 10/19/16 04:00 98.6 104 21 174/93 100 10/19/16 04:00 104 10/19/16 02:00 126 10/19/16 00:00 126 10/19/16 00:00 99.7 108 24 165/85 100 10/18/16 22:00 112 10/18/16 20:58 100 T-piece 5.00 28 10/18/16 20:00 107 10/18/16 20:00 99.8 99 21 158/90 99 10/18/16 19:00 98 T-Piece 28 10/18/16 18:00 122 10/18/16 16:00 98.5 86 14 139/93 100 10/18/16 16:00 86 I/O 10/18/16 10/18/16 10/18/16 10/19/16 10/19/16 10/19/16 07:00 15:00 23:00 07:00 15:00 23:00 Intake Total 2550 ml 1707 ml 1386 ml 1317 ml Output Total 0 ml 250 ml 2650 ml 3900 ml Balance 2550 ml 1457 ml -1264 ml -2583 ml Intake Oral 0 ml IV Total 2050 ml 1707 ml 1386 ml 1317 ml Packed Cells 500 ml Output Urine Total 0 ml 100 ml 2450 ml 3800 ml Gastric Drainage Total 150 ml 200 ml 100 ml # Bowel Movements 1 2 Result Diagram: 10/19/16 0350 10/19/16 0350 Objective Remarks This is an averagely built middle-aged man who is responsive on a trach collar. He has weakness of right extremities. HEENT: Head normocephalic. Pupils reactive. Throat is clear. NECK: Supple without venous distension. No thyromegaly or lymphadenopathy. CHEST: Decreased breath sounds at the bases .Occ wheeze heard . HEART: The heart sounds are regular, S1-S2. No murmur. No S3. ABDOMEN: The abdomen is soft, nontender. Bowel sounds are active. No organomegaly. EXTREMITIES: Weakness of the right extremities. The patient does move his left extremities., RECTAL: Exam is deferred. Assessment and Plan Assessment and Plan IMPRESSION 1. Status post left basal ganglia intraparenchymal hemorrhage with the right frontal ventriculostomy placement. 2. Acute respiratory failure resolved. 3. Bibasilar atelectasis and pneumonia. 4. History of uncontrolled hypertension. 5. Right hemiplegia. 6. GI Bleed with Anemia Plan : 1. Cont on T Bar 28 %. 2. Trach suction and lavage prn. 3. Nebs bid , duoneb. 4. CBC,BMP in am 5. G Tube with feeds. 6. PT evaluation. 7. CXR in am Lynne White MD Oct 19, 2016 14:41
[2016-10-19 15:57] LABS: HEMATOCRIT 27.8 % (39.0-51.0); REVIEW FLAG FINAL
[2016-10-19] MEDS ORDERED: POTASSIUM CHLOR 40 MEQ PREMIX 100 ML IV ONE (17:45)
[2016-10-19] MEDS: amLODIPine BESYLATE 5 MG TAB PO SCH (21:03)
[2016-10-19] MEDS: LISINOPRIL 10 MG TAB PO SCH (21:03)
[2016-10-20] VITALS (14 sets, daily range): BP systolic 117–155; BP diastolic 75–87; PULSE 88–121; RESP 17–21; TEMP 98–99.3; O2SAT 97–100
[2016-10-20] MEDS: PIPERACIL-TAZO 4.5 GM PREMIX 100 ML IV SCH ×3 (00:14→16:41)
[2016-10-20] MEDS: METOPROLOL TARTRATE 5 MG/5 ML VIAL IV PUSH SCH ×4 (00:14→11:05)
[2016-10-20] MEDS: RESP: ALBUTEROL 2.5 MG/IPRATROPIUM 0.5 MG NEB (SCH) NEB ×4 (03:03→21:50)
[2016-10-20 03:19] LABS: AUTOMATED NEUTROPHIL # 4.8 TH/MM3 (1.8-7.7); BASOPHIL % 0.6 % (0.0-2.0); EOSINOPHIL # 0.4 TH/MM3 (0-0.4); HEMATOCRIT 24.9 % (39.0-51.0); HEMO FLAGS DIFF FINAL; LYMPH % 17.3 % (9.0-44.0); LYMPHOCYTE # 1.2 TH/MM3 (1.0-4.8); MEAN CELL VOLUME 88.7 FL (80.0-100.0); MEAN CORPUSCULAR HEMOGLOBIN 30.7 PG (27.0-34.0); MEAN CORPUSCULAR HGB CONC 34.7 % (32.0-36.0); MONO % 10.4 % (0.0-8.0); NEUT % 66.7 % (16.0-70.0); PLATELET COUNT 201 TH/MM3 (150-450); RED BLOOD COUNT 2.81 MIL/MM3 (4.50-5.90); RED CELL DISTRIBUTION WIDTH 13.8 % (11.6-17.2); WHITE BLOOD COUNT 7.2 TH/MM3 (4.0-11.0)
[2016-10-20 03:44] LABS: ALT (GPT) 40 U/L (12-78); ANION GAP 8 MEQ/L (5-15); AST (GOT) 22 U/L (15-37); BICARBONATE 27.3 MEQ/L (21.0-32.0); BLOOD UREA NITROGEN 10 MG/DL (7-18); CHLORIDE 106 MEQ/L (98-107); GLOMERULAR FILTRATION RATE 165 ML/MIN (>89); MAGNESIUM 1.6 MG/DL (1.5-2.5); POTASSIUM 3.3 MEQ/L (3.5-5.1); SODIUM (NA) 141 MEQ/L (136-145)
[2016-10-20 03:46] LABS: ALKALINE PHOSPHATASE 75 U/L (45-117); TOTAL BILIRUBIN ADULT 0.8 MG/DL (0.2-1.0)
[2016-10-20] MEDS: INSULIN NovoLIN REGULAR SUPPLEMENTAL SCALE SQ SCH ×6 (04:00→20:00)
[2016-10-20] MEDS: PANTOPRAZOLE INJ 80 MG in SODIUM CHLORIDE 0.9% INJ 100 ML IV PUSH SCH (05:14)
[2016-10-20] MEDS: hydrALAZINE HCL 50 MG TAB PO SCH (05:14)
[2016-10-20] MEDS: SENNOSIDES 8.6 MG TAB GT SCH ×2 (05:15→16:41)
[2016-10-20] MEDS: BENEPROTEIN POWDER 1 PACK G-TUBE SCH ×6 (08:00→16:41)
[2016-10-20] MEDS: ARTIFICIAL TEARS OPTH SOLN 15 ML BTL EACH EYE SCH ×3 (08:01→16:41)
[2016-10-20] MEDS: SODIUM CHLORIDE 0.9% FLUSH 5 ML FLUSH IVF SCH (08:01)
[2016-10-20] MEDS: NEOMYCIN/POLYMYXIN/BACITRACIN OINT 15 GM TUBE TOPICAL SCH ×2 (08:01→20:50)
[2016-10-20] MEDS: SODIUM CHLORIDE 0.9% FLUSH 5 ML FLUSH IV FLUSH SCH ×2 (08:01→20:50)
[2016-10-20] MEDS: amLODIPine BESYLATE 5 MG TAB PO SCH ×2 (08:09→20:50)
[2016-10-20] MEDS: LISINOPRIL 10 MG TAB PO SCH ×2 (08:09→20:50)
[2016-10-20] MEDS: 1/2 NS + KCL 20 MEQ INJ 1,000 ML IV SCH (08:09)
[2016-10-20] MEDS ORDERED: POTASSIUM CHLOR 40 MEQ PREMIX 100 ML IV ONE (11:15)
--- NOTE | 2016-10-20 14:22 | ECHLIM ---
Study Study Date:10/20/2016 STUDY CONCLUSIONS SUMMARY - Left ventricle: The cavity size was normal. Wall thickness was normal. Systolic function was mildly reduced. The estimated ejection fraction was in the range of 45% to 50%. Wall motion was normal; there were no regional wall motion abnormalities. - Mitral valve: Mildly thickened annulus. Normal thickness leaflets, . If LV function is below 40, please consider prescribing an ACEI or ARB or document rationale for non-use. PROCEDURE DATA STUDY STATUS: Elective. Procedure: Transthoracic echocardiography. Image quality was good. Scanning was performed from the parasternal, apical, and subcostal acoustic windows. Study completion: The patient tolerated the procedure well. Transthoracic echocardiography. M-mode, complete 2D, complete spectral Doppler, and color Doppler. Patient status: Inpatient. CARDIAC ANATOMY LEFT VENTRICLE: The cavity size was normal. Wall thickness was normal. Systolic function was mildly reduced. The estimated ejection fraction was in the range of 45% to 50%. Wall motion was normal; there were no regional wall motion abnormalities. AORTIC VALVE: Trileaflet; normal thickness leaflets. Doppler: Transvalvular velocity was within the normal range. There was no stenosis. No regurgitation. AORTA: Aortic root: The aortic root was normal in size. MITRAL VALVE: Mildly thickened annulus. Normal thickness leaflets, . Doppler: Transvalvular velocity was within the normal range. There was no evidence for stenosis. No regurgitation. LEFT ATRIUM: The atrium was normal in size. RIGHT VENTRICLE: The cavity size was normal. Wall thickness was normal. PULMONIC VALVE: Doppler: Transvalvular velocity was within the normal range. There was no evidence for stenosis. No regurgitation. TRICUSPID VALVE: Structurally normal valve. Doppler: Transvalvular velocity was within the normal range. No regurgitation. PULMONARY ARTERY: The main pulmonary artery was normal-sized. Systolic pressure was within the normal range. RIGHT ATRIUM: The atrium was normal in size. PERICARDIUM: There was no pericardial effusion. SYSTEMIC VEINS: Inferior vena cava: The vessel was normal in size. Prepared and signed by Chinedu Nichole [id number]
--- NOTE | 2016-10-20 14:45 | HHI.CCPN ---
Subjective Remarks/Hospital Course Remarks/Hospital Course This is a middle-aged male. Date of admission 08/26/2016. Past medical history is unknown. His real name is Rafy Ruiz. Haritha Ruiz [phone] is the health proxy. Per ED report, patient was acute onset 1 hour prior to admission of right upper and lower extremity weakness and dysarthria. Upon presentation to the ED, patient was quite hypertensive and had decreased responsiveness. Patient was intubated by ED physician. [address] head revealed a left intraparenchymal hemorrhage/basal ganglia with extension to the lateral ventricle with a 5 mm shift to the right. Neurosurgery was consulted/Dr. Croft who placed Right frontal ventriculostomy. Laboratories reveal potassium 2.8. Currently on Cardene drip at 15 mg an hour. SUBJ: Remains intubated, on fentanyl. Propofol on hold. On Cardene infusion at 1mg per hour. Ventric with 87 ml blood-tinged CSF since placement. ICP well controlled,. Patient's [id number] is at the bedside, is in [place] 08/28: continues to have poor neurologic exam. on Cardene at 5mg/hr this AM. EVD with blood-tinged CSF, patent. ICP controlled. not yet on sedation hold this AM to my exam. 08/29: no change in neuro exam. cardene persists for blood pressure control. 08/30: encephalopathy persists. still on cardene at 5mg/hr for blood pressure. 08/31: hypernatremia persists. poor neuro exam still. unable to tolerate sedation holiday due to hypertension. labetalol increased yesterday with only mild improvements. did not diureswell with lasix 20 yesterday. 09/01: Remains off sedation since yesterday. Appears to localize with left upper extremity. Blood pressure control improved. Urine output excellent 3.9 L in 24 hours, EVD with 192 mLoutput in 24 hours 09/02: No improvement in neurological function. 09/03: No change in neuro status. Still waiting for photo ID. 09/04: No change. Plan trach today to facilitate long-tern vent weaning. 09/05: Hypertensive. Will increase lisinopril and add lopressor. 09/06: Transitioning to oral hypertension meds. Trach site dry clean. 09/07: BP control acceptable but needs fine tuning. Diuresis has been adequate - hold for now. Tolerates up to 2 hours CPAP - now a long-term weaning problem. 09/08: BP control acceptable. Trying to convert to oral meds only. 09/09: BP control better. Fever, leukocytosis worrisome. 09/10: MSSA in sputum, GNR in urine. Start ceftriaxone, stop Vanc and Cefepime. D/C izaguirre. 09/11: WBC declining nicely. BP control still problematic, presently on Lopressor, Norvasc, Lisinopril, and Catapres (all large doses). 09/12: BP control improved. WBC improved after ceftriaxone started. 09/13: Finally on t-piece and looking strong enough to sustain. BP control improved. 10/18 CCM reconsulted following Halicat for GI bleeding. He had 2 large dark bloody BMs. SBP dropped to 60s. He then vomited some blood and then desaturated. Was on 28% Tpiece. 10/18: Seen in examined. Ensure line placed emergently secondary to hypertension in a patient with active bleeding from PEG tube site. Minimal responsive on vent - #6 Shiley uncuffed. Transfused 2 units PRBCs and 2 L bolus 1. 10/19: EGD revealed Gabrielle Stewart tear status post ablation. No active bleeding the interim. Tracheostomy changed to a #6 Shiley fenestrated cuffed trach due to hemoptysis. Source likely esophagus/NG tube placed. Hypertensive overnight requiring when necessary's. Subjective: 10/20: Afebrile. No further bleeding from PEG tube or or hemoptysis noted. Tolerating tube feeding. On T piece trial. Blood pressure medications restarted. Objective Vital Signs Date Time Temp Pulse Resp B/P Pulse Ox O2 Delivery O2 Flow Rate FiO2 10/20/16 12:00 98.5 94 19 145/75 99 10/20/16 09:41 T-piece 28 10/19/16 21:24 5.00 Intake and Output 10/19/16 10/19/16 10/20/16 08:00 16:00 00:00 Intake Total 1317 ml 1555 ml 1295 ml Output Total 3900 ml 2400 ml 775 ml Balance -2583 ml -845 ml 520 ml Result Diagram: 10/20/16 0300 10/20/16 0300 Other Results Microbiology Date/Time Procedure Status Source Growth 10/18/16 14:15 Gram Stain - Final Complete Sputum Endotracheal 10/18/16 14:15 Sputum Culture - Final Complete Sputum Endotracheal RARE GROWTH NORMAL RESPIRATORY JENNIFER Imaging Last Impressions Chest X-Ray 10/19/16 0600 Signed Impressions: Service Date/Time: Wednesday, October 19, 2016 03:57 - CONCLUSION: Underinflated examination with atelectasis at the lung bases. Otherwise, no acute finding is identified. Rakesh Robison MD Renal Ultrasound 10/18/16 0000 Signed Impressions: Service Date/Time: Tuesday, October 18, 2016 10:53 - CONCLUSION: Small left renal cyst. Otherwise, negative. Vargas Freitas MD FACR Gastrostomy Tube Placement 09/19/16 0000 Signed Impressions: Service Date/Time: Monday, September 19, 2016 16:01 - CONCLUSION: Uncomplicated gastrostomy tube placement as above. Chaitanya Rondon MD Head CT 09/17/16 0600 Signed Impressions: Service Date/Time: Saturday, September 17, 2016 04:14 - CONCLUSION: 1. Slightly evolving left basal ganglia hemorrhage with surrounding edema and mass effect similar to September 08. Right frontal ventriculostomy tube unchanged. Right ventricular size relatively stable. Bishop Fulton MD Head Magnetic Resonance Angiography 08/27/16 0000 Signed Impressions: Service Date/Time: Saturday, August 27, 2016 16:49 - CONCLUSION: Negative MRA of the brain. Vargas Freitas MD FACR Brain MRI 08/27/16 0000 Signed Impressions: Service Date/Time: Saturday, August 27, 2016 16:49 - CONCLUSION: 1. Large thalamic hemorrhage as described above. Extensive periventricular white matter changes are noted. There is compression of the third ventricle. Ventriculostomy is seen in the right lateral ventricle. 2. Hemorrhage does extend down the white matter tracts to the level of the right cerebral peduncle. Vargas Freitas MD FACR Objective Remarks GENERAL: 61-year-old male, critically ill currently resting in bed via tracheostomy SKIN: Warm, dry. No rash HEAD: Prior scar from right ventriculostomy well-healed. EYES:. PERRL. MMM. NECK: Trachea midline. Right IJ is clean dry and intact. CARDIOVASCULAR: Regular rate and rhythm. No murmurs/clicks gallops or rubs. RESPIRATORY: Clear to auscultation. Breath sounds equal bilaterally. mechanically ventilated. Tolerating T-piece. GASTROINTESTINAL: Abdomen soft, nontender scar nondistended. PEG to site is not excoriated. MUSCULOSKELETAL: Extremities without significant peripheral edema.. NEUROLOGICAL: Flaccid right upper extremity, right lower extremity. Moving head and left upper/lower extremity spontaneously to pain. Nonverbal. 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 Neurosurgery/Dr. Croft. Right frontal twist drill hole ventriculostomy on 08/26 -- EEG 08/30: generalized slowing, no seizure activity. Neurologically unchanged since admission. CV: Admission with Hypertensive emergency - resolved Currently hypotensive likely secondary to hemorrhagic shock Initially holding hypertensive medications including metoprolol 100 twice a day , lisinopril 20 mg twice a day, Norvasc 10 mg daily, clonidine 0.2 mg 3 times a day and hydralazine 100 mg every 6 hours. CVP Restarted lisinopril 20 twice a day, and Norvasc 5 twice a day, hydralazine 100 every 8 hours and clonidine 0.1 3 times a day. An metoprolol 25 twice a day as well. Follow-up EKG/troponin 1 now Echocardiogram this admission revealed EF 55%. No regional wall motion abnormality. Resp: Vent dependent respiratory failure T piece @ 28% #6 Joey uncuffed. Followed by Dr. White. Chest x-ray reveals no acute cardiopulmonary findings GI: Upper and lower GI bleed Acute Protein Calorie Malnutrition-mild Constipation Resume tube feeding with senna 1.5 goal 60 cc hours without packet Benefiber 3 times a day Serial hemoglobins are stable. We'll discontinue Lovenox subcutaneous while be held currently. PEG tube was placed by Dr. Rondon/IR on 09/23 Currently to low intermittent wall suction : Izaguirre will be placed for accurate I/Os. Endo: Hyperglycemia of Critical Illness Sliding-scale insulin with Accu-Cheks every 4 hours to maintain euglycemia. Low regimen Renal: Oliguria D5 1 half normal saline and KCl discontinued Accurate I's and Os Monitor urine output and recheck BMP this afternoon Heme: Acute blood loss anemia Transfuse 2 units PRBCs. Coags within normal limits. Serial H&H's. Consultation to gastroenterology for possible endoscopy. ID: Monitor for infection FEN: Hypokalemia Received 40 mEq KCl IV 1. Recheck in a.m. Replace per ICU electrolyte protocol. MSK: PT evaluate and treat Access -Right IJ CVL placed 10/18 Prophylaxis - GI - Protonix - DVT - SCD. Hold Lovenox subcutaneous Critical Care: The total care time was 35 minutes. Time to perform other separately billable procedures was not included in the critical care time. Patient is stable from a critical care medicine standpoint. We will assign care to Hospitalist in am 10/21. Ellis Bright MD Oct 20, 2016 14:45
--- NOTE | 2016-10-20 14:52 | PD.TRANSFR ---
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 Neurosurgery/Dr. Croft. Right frontal twist drill hole ventriculostomy on 08/26 -- EEG 08/30: generalized slowing, no seizure activity. Neurologically unchanged since admission. CV: Admission with Hypertensive emergency - resolved Currently hypotensive likely secondary to hemorrhagic shock Daily holding hypertensive medications including metoprolol 100 twice a day, lisinopril 20 mg twice a day, Norvasc 10 mg daily, clonidine 0.2 mg 3 times a day and hydralazine 100 mg every 6 hours. CV. Currently 5. Will given additional bolus of crystalloid Follow-up EKG/troponin 1 now Echocardiogram this admission revealed EF 55%. No regional wall motion abnormality. Resp: Vent dependent respiratory failure T piece @ 28% #6 Shiley uncuffed. Followed by Dr. White. Chest x-ray reveals no acute cardiopulmonary findings GI: Upper and lower GI bleed Acute Protein Calorie Malnutrition-mild Constipation Resume tube feeding with senna 1.5 goal 60 cc hours without packet Benefiber 3 times a day Serial hemoglobins are stable. We'll discontinue Lovenox subcutaneous while be held currently. PEG tube was placed by Dr. Rondon/IR on 09/23 Currently to low intermittent wall suction : Kern will be placed for accurate I/Os. Endo: Hyperglycemia of Critical Illness Sliding-scale insulin with Accu-Cheks every 4 hours to maintain euglycemia. Low regimen Renal: Oliguria D5 1 half normal saline and KCl discontinued Accurate I's and Os Monitor urine output and recheck BMP this afternoon Heme: Acute blood loss anemia Transfuse 2 units PRBCs. Coags within normal limits. Serial H&H's. Consultation to gastroenterology for possible endoscopy. ID: Monitor for infection FEN: Hypokalemia Received 40 mEq KCl IV 1. Recheck in a.m. Replace per ICU electrolyte protocol. MSK: PT evaluate and treat Access -Right IJ CVL placed 10/18 Prophylaxis - GI - Protonix - DVT - SCD. Hold Lovenox subcutaneous Critical Care: The total care time was 35 minutes. Time to perform other separately billable procedures was not included in the critical care time. Patient is stable from a critical care medicine standpoint. We will assign care to Hospitalist in am 10/21. Objective Vital Signs Date Time Temp Pulse Resp B/P Pulse Ox O2 Delivery O2 Flow Rate FiO2 10/20/16 12:00 98.5 94 19 145/75 99 10/20/16 09:41 T-piece 28 10/19/16 21:24 5.00 Intake and Output 10/19/16 10/19/16 10/20/16 08:00 16:00 00:00 Intake Total 1317 ml 1555 ml 1295 ml Output Total 3900 ml 2400 ml 775 ml Balance -2583 ml -845 ml 520 ml Result Diagram: 10/20/16 0300 10/20/16 0300 Other Results Microbiology Date/Time Procedure Status Source Growth 10/18/16 14:15 Gram Stain - Final Complete Sputum Endotracheal 10/18/16 14:15 Sputum Culture - Final Complete Sputum Endotracheal RARE GROWTH NORMAL RESPIRATORY JENNIFER Imaging Last Impressions Chest X-Ray 10/19/16 0600 Signed Impressions: Service Date/Time: Wednesday, October 19, 2016 03:57 - CONCLUSION: Underinflated examination with atelectasis at the lung bases. Otherwise, no acute finding is identified. Rakesh Robison MD Renal Ultrasound 10/18/16 0000 Signed Impressions: Service Date/Time: Tuesday, October 18, 2016 10:53 - CONCLUSION: Small left renal cyst. Otherwise, negative. Vargas Freitas MD FACR Gastrostomy Tube Placement 09/19/16 0000 Signed Impressions: Service Date/Time: Monday, September 19, 2016 16:01 - CONCLUSION: Uncomplicated gastrostomy tube placement as above. Chaitanya Rondon MD Head CT 09/17/16 0600 Signed Impressions: Service Date/Time: Saturday, September 17, 2016 04:14 - CONCLUSION: 1. Slightly evolving left basal ganglia hemorrhage with surrounding edema and mass effect similar to September 08. Right frontal ventriculostomy tube unchanged. Right ventricular size relatively stable. Bishop Fulton MD Head Magnetic Resonance Angiography 08/27/16 0000 Signed Impressions: Service Date/Time: Saturday, August 27, 2016 16:49 - CONCLUSION: Negative MRA of the brain. Vargas Freitas MD FACR Brain MRI 08/27/16 0000 Signed Impressions: Service Date/Time: Saturday, August 27, 2016 16:49 - CONCLUSION: 1. Large thalamic hemorrhage as described above. Extensive periventricular white matter changes are noted. There is compression of the third ventricle. Ventriculostomy is seen in the right lateral ventricle. 2. Hemorrhage does extend down the white matter tracts to the level of the right cerebral peduncle. Vargas Freitas MD FACR Objective Remarks GENERAL: 61-year-old male, critically ill currently resting in bed via tracheostomy SKIN: Warm, dry. No rash HEAD: Prior scar from right ventriculostomy well-healed. EYES:. PERRL. MMM. NECK: Trachea midline. Right IJ is clean dry and intact. CARDIOVASCULAR: Regular rate and rhythm. No murmurs/clicks gallops or rubs. RESPIRATORY: Clear to auscultation. Breath sounds equal bilaterally. mechanically ventilated. Tolerating T-piece. GASTROINTESTINAL: Abdomen soft, nontender scar nondistended. PEG to site is not excoriated. MUSCULOSKELETAL: Extremities without significant peripheral edema.. NEUROLOGICAL: Flaccid right upper extremity, right lower extremity. Moving head and left upper/lower extremity spontaneously to pain. Nonverbal. 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 Neurosurgery/Dr. Croft. Right frontal twist drill hole ventriculostomy on 08/26 -- EEG 08/30: generalized slowing, no seizure activity. Neurologically unchanged since admission. CV: Admission with Hypertensive emergency - resolved Currently hypotensive likely secondary to hemorrhagic shock Daily holding hypertensive medications including metoprolol 100 twice a day, lisinopril 20 mg twice a day, Norvasc 10 mg daily, clonidine 0.2 mg 3 times a day and hydralazine 100 mg every 6 hours. CV. Currently 5. Will given additional bolus of crystalloid Follow-up EKG/troponin 1 now Echocardiogram this admission revealed EF 55%. No regional wall motion abnormality. Resp: Vent dependent respiratory failure T piece @ 28% #6 Shiley uncuffed. Followed by Dr. White. Chest x-ray reveals no acute cardiopulmonary findings GI: Upper and lower GI bleed Acute Protein Calorie Malnutrition-mild Constipation Resume tube feeding with senna 1.5 goal 60 cc hours without packet Benefiber 3 times a day Serial hemoglobins are stable. We'll discontinue Lovenox subcutaneous while be held currently. PEG tube was placed by Dr. Rondon/IR on 09/23 Currently to low intermittent wall suction : Kern will be placed for accurate I/Os. Endo: Hyperglycemia of Critical Illness Sliding-scale insulin with Accu-Cheks every 4 hours to maintain euglycemia. Low regimen Renal: Oliguria D5 1 half normal saline and KCl discontinued Accurate I's and Os Monitor urine output and recheck BMP this afternoon Heme: Acute blood loss anemia Transfuse 2 units PRBCs. Coags within normal limits. Serial H&H's. Consultation to gastroenterology for possible endoscopy. ID: Monitor for infection FEN: Hypokalemia Received 40 mEq KCl IV 1. Recheck in a.m. Replace per ICU electrolyte protocol. MSK: PT evaluate and treat Access -Right IJ CVL placed 10/18 Prophylaxis - GI - Protonix - DVT - SCD. Hold Lovenox subcutaneous Critical Care: The total care time was 35 minutes. Time to perform other separately billable procedures was not included in the critical care time. Patient is stable from a critical care medicine standpoint. We will assign care to Hospitalist in am 10/21. Ellis Bright MD Oct 20, 2016 14:52
--- NOTE | 2016-10-20 15:08 | HHI.HCPN ---
Reason for visit a. To assist with evaluation and management of symptoms including: pain, dyspnea, debility, b. To assist medical decision maker(s) with: better understanding of current medical conditions; weighing benefits/burdens of medical treatment options; making medical treatment decisions. Subjective/Interval History Patient will awaken to touch of hand and call of name. He will look directly at me and will follow me. He otherwise has a flat facial expression. He does not follow commands for me at this time. He was get PT/OT - this was discontinued / put on hold following a GI bleed due to a Gabrielle-Stewart tear. HGB are at 8.6. He remains tachycardic since last week. He is afebrile. He remains in the ICU at this time on a T-piece w 6L O2. Saturations are 94-100. CXR from 10/19/16 showed 'lungs under inflated w atelectasis at the bases - no effusion or consolidation. Recent Sputum Micro was unremarkable. Potassium was found to below and this has been repleted. Gisel, his [id number], will come to see him and is providing his , decision maker in [place] and family with updates. As of our last discussion, the desire of the family is for him to remain a FULL CODE with full aggressive measures anticipating his recovery. Family is hopeful for more recovery - feed self, walk, etc. Injury occurred 08/26/16. He has had some neurologic improvement but will need retirement placement for care. Advance Directives Living Will: Never completed Health Care Surrogate: Never completed Durable Power of Manager Banquet: Never completed Advance Directive Specifics Documented care wishes: Full CODE STATUS Objective Vital Signs Date Time Temp Pulse Resp B/P Pulse Ox O2 Delivery O2 Flow Rate FiO2 10/20/16 12:00 98.5 94 19 145/75 99 10/20/16 12:00 94 10/20/16 10:00 89 10/20/16 09:41 100 T-piece 28 10/20/16 08:00 99.0 100 19 140/85 99 10/20/16 08:00 100 10/20/16 07:00 99 T-Piece 28 10/20/16 06:00 104 10/20/16 04:00 104 10/20/16 04:00 98.9 104 21 137/77 100 10/20/16 02:00 103 10/20/16 00:00 99.0 114 20 117/80 98 10/20/16 00:00 114 10/19/16 22:00 112 10/19/16 21:24 100 T-piece 5.00 28 10/19/16 20:00 99.5 108 25 141/81 99 10/19/16 20:00 108 10/19/16 19:40 95 T-piece 5.00 28 10/19/16 19:00 99 T-Piece 6.00 28 10/19/16 18:00 100 10/19/16 16:00 98.4 105 22 133/78 100 10/19/16 16:00 105 Intake & Output 10/20/16 10/20/16 07:00 19:00 Intake Total 2823 ml Output Total 2575 ml Balance 248 ml IV Total 1833 ml Tube Feeding 340 ml Tube Irrigant 650 ml Output Urine Total 2125 ml Stool Total 450 ml Gastric Drainage Total 0 ml Physical Exam CONSTITUTIONAL/GENERAL: This is an adequately nourished patient, in no apparent distress. With aphasia post R side brain hemorrhagic stroke/ TUBES/LINES/DRAINS: T-Piece, catheter, central line,PEG SKIN: No jaundice, rashes, or lesions. Well healed suture lines to this skull, post ICP line, No wounds seen anteriorly. Skin temperature appropriate. Not diaphoretic. HEAD: Atraumatic. Normocephalic. EYES: Pupils equal and round , reactive, following w eyes ENT: Able to adequately assess hearing. Mouth/ Throat without visible erythema , exudates, masses, or lesions. NECK: T tube in place CARDIOVASCULAR: tachycardic, Regular rate and rhythm without murmurs, gallops, or rubs. No JVD. Peripheral pulses symmetric. RESPIRATORY/CHEST: Tpiece at 6 L, rhonchi anterior bilaterally, posterior diminished mid to base, Symmetric, unlabored respirations. Poor excursion. GASTROINTESTINAL: Abdomen soft, non-tender, nondistended. No hepato-splenomegaly , or palpable masses. No guarding. Bowel sounds present. PEG w dressing GENITOURINARY: Without palpable bladder distension. Urinary catheter in place. MUSCULOSKELETAL: Extremities without clubbing, cyanosis, or edema. No joint tenderness or effusion noted. No calf tenderness. No mottling or clubbing. LYMPHATICS: No palpable cervical or supraclavicular adenopathy. NEUROLOGICAL: Will track and follow w eyes. not following commands for me today PSYCHIATRIC: Unable to assess Diagnostic Tests Laboratory Laboratory Tests Test 10/18/16 10/18/16 10/18/16 10/18/16 02:47 02:52 06:00 08:00 White Blood Count 7.3 TH/MM3 (4.0-11.0) Red Blood Count 2.87 MIL/MM3 (4.50-5.90) Hemoglobin 9.0 GM/DL 9.6 GM/DL (13.0-17.0) (13.0-17.0) Hematocrit 26.1 % 27.6 % (39.0-51.0) (39.0-51.0) Mean Corpuscular Volume 91.0 FL (80.0-100.0) Mean Corpuscular Hemoglobin 31.2 PG (27.0-34.0) Mean Corpuscular Hemoglobin 34.3 % Concent (32.0-36.0) Red Cell Distribution Width 13.0 % (11.6-17.2) Platelet Count 307 TH/MM3 (150-450) Mean Platelet Volume 11.5 FL (7.0-11.0) Neutrophils (%) (Auto) 66.0 % (16.0-70.0) Lymphocytes (%) (Auto) 19.3 % (9.0-44.0) Monocytes (%) (Auto) 11.6 % (0.0-8.0) Eosinophils (%) (Auto) 2.3 % (0.0-4.0) Basophils (%) (Auto) 0.8 % (0.0-2.0) Neutrophils # (Auto) 4.8 TH/MM3 (1.8-7.7) Lymphocytes # (Auto) 1.4 TH/MM3 (1.0-4.8) Monocytes # (Auto) 0.8 TH/MM3 (0-0.9) Eosinophils # (Auto) 0.2 TH/MM3 (0-0.4) Basophils # (Auto) 0.1 TH/MM3 (0-0.2) CBC Comment DIFF FINAL Differential Comment Prothrombin Time 12.0 SEC (9.8-11.6) Prothromb Time International 1.1 RATIO Ratio Activated Partial 25.9 SEC Thromboplast Time (24.3-30.1) Fibrinogen 356 mg/dL (227-377) Sodium Level 142 MEQ/L (136-145) Potassium Level 3.7 MEQ/L (3.5-5.1) Chloride Level 105 MEQ/L (98-107) Carbon Dioxide Level 29.2 MEQ/L (21.0-32.0) Anion Gap 8 MEQ/L (5-15) Blood Urea Nitrogen 28 MG/DL (7-18) Creatinine 0.92 MG/DL (0.60-1.30) Estimat Glomerular Filtration 84 ML/MIN (>89) Rate Random Glucose 213 MG/DL (74-106) Calcium Level 8.9 MG/DL (8.5-10.1) Phosphorus Level 4.5 MG/DL (2.5-4.9) Magnesium Level 2.2 MG/DL (1.5-2.5) Total Bilirubin 0.3 MG/DL (0.2-1.0) Aspartate Amino Transf 16 U/L (15-37) (AST/SGOT) Alanine Aminotransferase 35 U/L (12-78) (ALT/SGPT) Alkaline Phosphatase 74 U/L (45-117) Total Protein 6.0 GM/DL (6.4-8.2) Albumin 2.4 GM/DL (3.4-5.0) Blood Type A POSITIVE Antibody Screen NEGATIVE Crossmatch Leukocyte-Reduced Red Blood Cells Blood Bank Comment Urine Eosinophils NONE SEEN /HPF (NONE SEEN) Urine Random Creatinine 99.6 MG/DL Urine Random Sodium 9 MEQ/L Lactic Acid Level 1.3 mmol/L (0.4-2.0) Total Creatine Kinase 30 U/L (39-308) Troponin I LESS THAN 0.02 NG/ML (0.02-0.05) Test 10/18/16 10/18/16 10/19/16 10/19/16 14:01 20:40 03:50 15:30 Hemoglobin 9.0 GM/DL 8.9 GM/DL 9.6 GM/DL 9.4 GM/DL (13.0-17.0) (13.0-17.0) (13.0-17.0) (13.0-17.0) Hematocrit 26.0 % 25.2 % 27.3 % 27.8 % (39.0-51.0) (39.0-51.0) (39.0-51.0) (39.0-51.0) Sodium Level 148 MEQ/L 148 MEQ/L (136-145) (136-145) Potassium Level 3.5 MEQ/L 2.9 MEQ/L 3.4 MEQ/L (3.5-5.1) (3.5-5.1) (3.5-5.1) Chloride Level 114 MEQ/L 112 MEQ/L (98-107) (98-107) Carbon Dioxide Level 26.5 MEQ/L 27.6 MEQ/L (21.0-32.0) (21.0-32.0) Anion Gap 8 MEQ/L (5-15) 8 MEQ/L (5-15) Blood Urea Nitrogen 41 MG/DL (7-18) 21 MG/DL (7-18) Creatinine 0.64 MG/DL 0.54 MG/DL (0.60-1.30) (0.60-1.30) Estimat Glomerular Filtration 127 ML/MIN 155 ML/MIN Rate (>89) (>89) Random Glucose 121 MG/DL 107 MG/DL (74-106) (74-106) Calcium Level 8.2 MG/DL 9.0 MG/DL (8.5-10.1) (8.5-10.1) White Blood Count 5.2 TH/MM3 (4.0-11.0) Red Blood Count 3.08 MIL/MM3 (4.50-5.90) Mean Corpuscular Volume 88.4 FL (80.0-100.0) Mean Corpuscular Hemoglobin 31.3 PG (27.0-34.0) Mean Corpuscular Hemoglobin 35.4 % Concent (32.0-36.0) Red Cell Distribution Width 14.0 % (11.6-17.2) Platelet Count 185 TH/MM3 (150-450) Mean Platelet Volume 10.7 FL (7.0-11.0) Neutrophils (%) (Auto) 54.6 % (16.0-70.0) Lymphocytes (%) (Auto) 27.5 % (9.0-44.0) Monocytes (%) (Auto) 15.4 % (0.0-8.0) Eosinophils (%) (Auto) 1.9 % (0.0-4.0) Basophils (%) (Auto) 0.6 % (0.0-2.0) Neutrophils # (Auto) 2.8 TH/MM3 (1.8-7.7) Lymphocytes # (Auto) 1.4 TH/MM3 (1.0-4.8) Monocytes # (Auto) 0.8 TH/MM3 (0-0.9) Eosinophils # (Auto) 0.1 TH/MM3 (0-0.4) Basophils # (Auto) 0.0 TH/MM3 (0-0.2) CBC Comment DIFF FINAL Differential Comment Lactic Acid Level 1.0 mmol/L (0.4-2.0) Phosphorus Level 2.7 MG/DL (2.5-4.9) Magnesium Level 1.8 MG/DL (1.5-2.5) Total Bilirubin 0.7 MG/DL (0.2-1.0) Aspartate Amino Transf 18 U/L (15-37) (AST/SGOT) Alanine Aminotransferase 38 U/L (12-78) (ALT/SGPT) Alkaline Phosphatase 75 U/L (45-117) Total Protein 6.6 GM/DL (6.4-8.2) Albumin 2.9 GM/DL (3.4-5.0) Test 10/20/16 03:00 White Blood Count 7.2 TH/MM3 (4.0-11.0) Red Blood Count 2.81 MIL/MM3 (4.50-5.90) Hemoglobin 8.6 GM/DL (13.0-17.0) Hematocrit 24.9 % (39.0-51.0) Mean Corpuscular Volume 88.7 FL (80.0-100.0) Mean Corpuscular Hemoglobin 30.7 PG (27.0-34.0) Mean Corpuscular Hemoglobin 34.7 % Concent (32.0-36.0) Red Cell Distribution Width 13.8 % (11.6-17.2) Platelet Count 201 TH/MM3 (150-450) Mean Platelet Volume 10.5 FL (7.0-11.0) Neutrophils (%) (Auto) 66.7 % (16.0-70.0) Lymphocytes (%) (Auto) 17.3 % (9.0-44.0) Monocytes (%) (Auto) 10.4 % (0.0-8.0) Eosinophils (%) (Auto) 5.0 % (0.0-4.0) Basophils (%) (Auto) 0.6 % (0.0-2.0) Neutrophils # (Auto) 4.8 TH/MM3 (1.8-7.7) Lymphocytes # (Auto) 1.2 TH/MM3 (1.0-4.8) Monocytes # (Auto) 0.7 TH/MM3 (0-0.9) Eosinophils # (Auto) 0.4 TH/MM3 (0-0.4) Basophils # (Auto) 0.0 TH/MM3 (0-0.2) CBC Comment DIFF FINAL Differential Comment Sodium Level 141 MEQ/L (136-145) Potassium Level 3.3 MEQ/L (3.5-5.1) Chloride Level 106 MEQ/L (98-107) Carbon Dioxide Level 27.3 MEQ/L (21.0-32.0) Anion Gap 8 MEQ/L (5-15) Blood Urea Nitrogen 10 MG/DL (7-18) Creatinine 0.51 MG/DL (0.60-1.30) Estimat Glomerular Filtration 165 ML/MIN Rate (>89) Random Glucose 103 MG/DL (74-106) Calcium Level 9.1 MG/DL (8.5-10.1) Phosphorus Level 2.1 MG/DL (2.5-4.9) Magnesium Level 1.6 MG/DL (1.5-2.5) Total Bilirubin 0.8 MG/DL (0.2-1.0) Aspartate Amino Transf 22 U/L (15-37) (AST/SGOT) Alanine Aminotransferase 40 U/L (12-78) (ALT/SGPT) Alkaline Phosphatase 75 U/L (45-117) Total Protein 6.2 GM/DL (6.4-8.2) Albumin 2.7 GM/DL (3.4-5.0) Result Diagram: 10/20/16 0300 10/20/16 0300 Microbiology Microbiology Date/Time Procedure Status Source Growth 10/18/16 14:15 Gram Stain - Final Complete Sputum Endotracheal 10/18/16 14:15 Sputum Culture - Final Complete Sputum Endotracheal RARE GROWTH NORMAL RESPIRATORY [facility] Imaging Last 72 hours Impressions Chest X-Ray 10/19/16 0600 Signed Impressions: Service Date/Time: Wednesday, October 19, 2016 03:57 - CONCLUSION: Underinflated examination with atelectasis at the lung bases. Otherwise, no acute finding is identified. Rakesh Robison MD Renal Ultrasound 10/18/16 0000 Signed Impressions: Service Date/Time: Tuesday, October 18, 2016 10:53 - CONCLUSION: Small left renal cyst. Otherwise, negative. Vargas Freitas MD FACR Chest X-Ray 10/18/16 0000 Signed Impressions: Service Date/Time: Tuesday, October 18, 2016 06:04 - CONCLUSION: Right IJ central line distal tip is in the SVC. No pneumothorax is visualized. Rakesh Robison MD Procedures PEG 09/19/16 Assessment and Plan Disease Oriented Problem List: (1) Stroke, hemorrhagic (2) Global aphasia Comment: Unable to assess level of cognition. Sporadically following commands witnessed by staff and family. (3) Respiratory failure Comment: Now on a T piece with 5 L./ 28% (4) Hypertension Comment: 1. Normalized Symptom Scale: (1) Pain 0-10 Scale: Unable to quantify Comment: Has APAP for pain prn. he is unable to express discomfort due to global aphasia (2) Debility 0-10 Scale: Unable to quantify Comment: Global aphasia with L hemiparesis. 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 Has been contacted via [employer] with help of her sister Gisel. Family has unrealistic expectations of his long-term outcome. . . Important Contacts Jodie García, , (lives in [place]) - - Health care proxy per [place] [employer] Gisel Salgado, ('s sister), Lives in [place]. Haritha Ruiz [phone] - pt's daughter, living in [place]. Boni Ruiz, son, Lives in [place] - [phone] . Prognosis Guarded - At this point, remains on T-Piece w 5L, feeding tube, While he will open his eyes and have spontaneous movement of L upper and lower extremities, he remains with significant aphasia. Ability for rehab is limited to meaningful existence is unlikely. . Code Status: Full Code Plan Decision Maker: [place] [employer] indicate in the absence of a written HCS, decision making falls to his who lives in [facility]. She has agreed to participate in decision making. Code Status: Full code ( updated 10/07/16) - family continues to feel they want everything done Family Discussion: LISA Batres sees him often - hopeful for recovery Symptoms: Dyspnea, dysphagia, debility, pain Palliative care phone number provided - will follow during hospital stay. 10/20/16 - Patient will likely need to have an acute event or significant decline before family is willing to discuss comfort measures. Expectations exceed patients neurological ability to perform. . Attestation To help prompt me to consider important information that might be impacting today's encounter and assessment, information from prior notes written by myself or my colleagues may have been "brought forward" into today's note. My signature on this note, however, is an attestation that I personally performed the exam, history, and/or decision-making noted today, and, unless otherwise indicated, the interactions with patient, family, and staff as well as the review of records all occurred today. I also attest that the listed assessment and stated plan reflect my best clinical judgment today based on the combination of historical information, prior notes, and today's exam/ interactions. When time spent is documented, it refers only to time spent today by the signer, or if indicated, combined time spent today by collaborating physician/nurse practitioner. Fara Negron Oct 20, 2016 15:08
--- NOTE | 2016-10-20 16:04 | HHI.GIFU ---
Subjective Remarks Resting in bed. No bleeding. Tolerating TF. (Wilma Putnam) Objective Vitals I&O Vital Signs Date Time Temp Pulse Resp B/P Pulse Ox O2 Delivery O2 Flow Rate FiO2 10/20/16 14:00 99 10/20/16 12:00 98.5 94 19 145/75 99 10/20/16 12:00 94 10/20/16 10:00 89 10/20/16 09:41 100 T-piece 28 10/20/16 08:00 99.0 100 19 140/85 99 10/20/16 08:00 100 10/20/16 07:00 99 T-Piece 28 10/20/16 06:00 104 10/20/16 04:00 104 10/20/16 04:00 98.9 104 21 137/77 100 10/20/16 02:00 103 10/20/16 00:00 99.0 114 20 117/80 98 10/20/16 00:00 114 10/19/16 22:00 112 10/19/16 21:24 100 T-piece 5.00 28 10/19/16 20:00 99.5 108 25 141/81 99 10/19/16 20:00 108 10/19/16 19:40 95 T-piece 5.00 28 10/19/16 19:00 99 T-Piece 6.00 28 10/19/16 18:00 100 10/19/16 16:00 98.4 105 22 133/78 100 10/19/16 16:00 105 I/O 10/19/16 10/19/16 10/19/16 10/20/16 10/20/16 10/20/16 07:00 15:00 23:00 07:00 15:00 23:00 Intake Total 1317 ml 1555 ml 1295 ml 1528 ml 1223 ml Output Total 3900 ml 2400 ml 775 ml 1800 ml 725 ml Balance -2583 ml -845 ml 520 ml -272 ml 498 ml IV Total 1317 ml 1555 ml 1005 ml 828 ml 746 ml Tube Feeding 40 ml 300 ml 417 ml Tube Irrigant 250 ml 400 ml 60 ml Output Urine Total 3800 ml 2000 ml 625 ml 1500 ml 625 ml Stool Total 350 ml 150 ml 300 ml 100 ml Gastric Drainage Total 100 ml 50 ml 0 ml 0 ml Laboratory Laboratory Tests Test 10/20/16 03:00 White Blood Count 7.2 Red Blood Count 2.81 Hemoglobin 8.6 Hematocrit 24.9 Mean Corpuscular Volume 88.7 Mean Corpuscular Hemoglobin 30.7 Mean Corpuscular Hemoglobin 34.7 Concent Red Cell Distribution Width 13.8 Platelet Count 201 Mean Platelet Volume 10.5 Neutrophils (%) (Auto) 66.7 Lymphocytes (%) (Auto) 17.3 Monocytes (%) (Auto) 10.4 Eosinophils (%) (Auto) 5.0 Basophils (%) (Auto) 0.6 Neutrophils # (Auto) 4.8 Lymphocytes # (Auto) 1.2 Monocytes # (Auto) 0.7 Eosinophils # (Auto) 0.4 Basophils # (Auto) 0.0 CBC Comment DIFF FINAL Differential Comment Sodium Level 141 Potassium Level 3.3 Chloride Level 106 Carbon Dioxide Level 27.3 Anion Gap 8 Blood Urea Nitrogen 10 Creatinine 0.51 Estimat Glomerular Filtration 165 Rate Random Glucose 103 Calcium Level 9.1 Phosphorus Level 2.1 Magnesium Level 1.6 Total Bilirubin 0.8 Aspartate Amino Transf 22 (AST/SGOT) Alanine Aminotransferase 40 (ALT/SGPT) Alkaline Phosphatase 75 Total Protein 6.2 Albumin 2.7 Date/Time Procedure Status Source Growth 10/18/16 14:15 Gram Stain - Final Complete Sputum Endotracheal 10/18/16 14:15 Sputum Culture - Final Complete Sputum Endotracheal RARE GROWTH NORMAL RESPIRATORY [facility] Imaging Last Impressions Chest X-Ray 10/19/16 0600 Signed Impressions: Service Date/Time: Wednesday, October 19, 2016 03:57 - CONCLUSION: Underinflated examination with atelectasis at the lung bases. Otherwise, no acute finding is identified. Rakesh Robison MD Renal Ultrasound 10/18/16 0000 Signed Impressions: Service Date/Time: Tuesday, October 18, 2016 10:53 - CONCLUSION: Small left renal cyst. Otherwise, negative. Vargas Freitas MD FACR Gastrostomy Tube Placement 09/19/16 0000 Signed Impressions: Service Date/Time: Monday, September 19, 2016 16:01 - CONCLUSION: Uncomplicated gastrostomy tube placement as above. Chaitanya Rondon MD Head CT 09/17/16 0600 Signed Impressions: Service Date/Time: Saturday, September 17, 2016 04:14 - CONCLUSION: 1. Slightly evolving left basal ganglia hemorrhage with surrounding edema and mass effect similar to September 08. Right frontal ventriculostomy tube unchanged. Right ventricular size relatively stable. Bishop Fulton MD Head Magnetic Resonance Angiography 08/27/16 0000 Signed Impressions: Service Date/Time: Saturday, August 27, 2016 16:49 - CONCLUSION: Negative MRA of the brain. Vargas Freitas MD FACR Brain MRI 08/27/16 0000 Signed Impressions: Service Date/Time: Saturday, August 27, 2016 16:49 - CONCLUSION: 1. Large thalamic hemorrhage as described above. Extensive periventricular white matter changes are noted. There is compression of the third ventricle. Ventriculostomy is seen in the right lateral ventricle. 2. Hemorrhage does extend down the white matter tracts to the level of the right cerebral peduncle. Vargas Freitas MD FACR Physical Exam HEENT: Normocephalic; atraumatic; no jaundice. NECK: Tracheostomy CHEST: Course, Tracheostomy. CARDIAC: RRR ABDOMEN: Soft, nondistended, nontender; no hepatosplenomegaly; bowel sounds are present in all four quadrants. PEG tube site without redness or swelling EXTREMITIES: No clubbing, cyanosis, or edema. SKIN: Normal; no rash; no jaundice. CONFIGURATION SPECIALIST: Lethargic. Moves left side (Wilma Putnam CAREER DEVELOPMENT MANAGER) Assessment and Plan Plan ASSESSMENT: - GIB, Upper with hematemesis/maroon gastric secretions. S/P EGD (10/18/16)---> 1. G tube in place 2. Old blood in stomach 3. Gabrielle-Stewart tear in the distal esophagus 4. Ablation performed using Heater probe. Good results 5. Normal duodenal mucosa 6. Retroflexed views revealed no abnormalities. No further bleeding. Tolerating TF. HH stable 8.6/24.9. PPI - Anemia, acute blood loss. S/P 2 units PRBC. HH stable 8.6/24.9. 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 - Protein energy malnutrition. S/P PEG tube by IR on 09/19/16. Learning Coordinator recommends Glucerna 1.5 @ 60mls/hr. TF currently off. - Hypertension, left pinna cellulitis, and multiple electrolyte abnormalities. per primary PLAN: - Glucerna 1.5 at 60cc/hr - Cont. PPI - Monitor HH - Transfuse as necessary - GI will sign off, please reconsult as needed - Pt seen and examined by Dr. Singletary and myself and this note is written on his behalf Pt seen and examined by Dr. Singletary and myself and this note is written on his behalf (Wilma Putnam) Physician Comments Seen and examined with LEX, no bleeding. Increase TF as tolerated. Monitor labs. Gi will sign off, reconsult as needed. Thank you (Mike Singletary MD) Wilma Putnam Oct 20, 2016 16:04 Mike Singletary MD Oct 20, 2016 17:55
[2016-10-20] MEDS: PANTOPRAZOLE SODIUM 40 MG VIAL IV PUSH SCH (16:41)
[2016-10-20] MEDS ORDERED: METOPROLOL TARTRATE 5 MG/5 ML VIAL IV PUSH ONE (17:00)
--- NOTE | 2016-10-20 19:40 | HHI.PR ---
Subjective Remarks Awake and On a T Bar 28 %. No active GI bleed. Had EGD and has a dayanara Stewart tear. No further bleed noted No new change in neuro status. On IV fluids . Objective Vital Signs Date Time Temp Pulse Resp B/P Pulse Ox O2 Delivery O2 Flow Rate FiO2 10/20/16 18:00 110 10/20/16 16:00 121 10/20/16 16:00 98.0 121 20 147/87 97 10/20/16 14:00 99 10/20/16 12:00 98.5 94 19 145/75 99 10/20/16 12:00 94 10/20/16 10:00 89 10/20/16 09:41 100 T-piece 28 10/20/16 08:00 99.0 100 19 140/85 99 10/20/16 08:00 100 10/20/16 07:00 99 T-Piece 28 10/20/16 06:00 104 10/20/16 04:00 104 10/20/16 04:00 98.9 104 21 137/77 100 10/20/16 02:00 103 10/20/16 00:00 99.0 114 20 117/80 98 10/20/16 00:00 114 10/19/16 22:00 112 10/19/16 21:24 100 T-piece 5.00 28 10/19/16 20:00 99.5 108 25 141/81 99 10/19/16 20:00 108 10/19/16 19:40 95 T-piece 5.00 28 I/O 10/19/16 10/19/16 10/19/16 10/20/16 10/20/16 10/20/16 07:00 15:00 23:00 07:00 15:00 23:00 Intake Total 1317 ml 1555 ml 1295 ml 1528 ml 1223 ml Output Total 3900 ml 2400 ml 775 ml 1800 ml 725 ml Balance -2583 ml -845 ml 520 ml -272 ml 498 ml IV Total 1317 ml 1555 ml 1005 ml 828 ml 746 ml Tube Feeding 40 ml 300 ml 417 ml Tube Irrigant 250 ml 400 ml 60 ml Output Urine Total 3800 ml 2000 ml 625 ml 1500 ml 625 ml Stool Total 350 ml 150 ml 300 ml 100 ml Gastric Drainage Total 100 ml 50 ml 0 ml 0 ml Result Diagram: 10/20/16 0300 10/20/16 1846 Objective Remarks This is an averagely built middle-aged man who is responsive on a trach collar. He has weakness of right extremities. HEENT: Head normocephalic. Pupils reactive. Throat is clear. NECK: Supple without venous distension. No thyromegaly or lymphadenopathy. CHEST: Decreased breath sounds at the bases .few Crackles at bases HEART: The heart sounds are regular, S1-S2. No murmur. No S3. ABDOMEN: The abdomen is soft, nontender. Bowel sounds are active. No organomegaly. EXTREMITIES: Weakness of the right extremities. The patient does move his left extremities., RECTAL: Exam is deferred. Assessment and Plan Assessment and Plan IMPRESSION 1. Status post left basal ganglia intraparenchymal hemorrhage with the right frontal ventriculostomy placement. 2. Acute respiratory failure resolved. 3. Bibasilar atelectasis and pneumonia. 4. History of uncontrolled hypertension. 5. Right hemiplegia. 6. GI Bleed with Anemia Plan : 1. Cont on T Bar 28 %. 2. Trach suction and lavage prn. 3. Nebs bid , duoneb. 4. Chest X ray 5. G Tube with feeds. 6. PT evaluation. Lynne White MD Oct 20, 2016 19:40
[2016-10-20] MEDS: METOPROLOL TARTRATE 25 MG TAB PO SCH (20:50)
[2016-10-20] MEDS: hydrALAZINE HCL 100 MG TAB PO SCH (22:05)
[2016-10-20] MEDS: cloNIDine HCL 0.1 MG TAB PO SCH (22:05)
[2016-10-21] VITALS (14 sets, daily range): BP systolic 117–130; BP diastolic 61–72; PULSE 84–114; RESP 14–22; TEMP 98.2–98.9; O2SAT 96–100
[2016-10-21] MEDS: PIPERACIL-TAZO 4.5 GM PREMIX 100 ML IV SCH ×4 (00:22→23:43)
[2016-10-21] MEDS: PANTOPRAZOLE SODIUM 40 MG VIAL IV PUSH SCH ×2 (03:21→13:42)
[2016-10-21] MEDS: RESP: ALBUTEROL 2.5 MG/IPRATROPIUM 0.5 MG NEB (SCH) NEB ×4 (03:33→21:12)
[2016-10-21 03:54] LABS: AUTOMATED NEUTROPHIL # 2.9 TH/MM3 (1.8-7.7); BASOPHIL % 0.9 % (0.0-2.0); EOSINOPHIL # 0.4 TH/MM3 (0-0.4); EOSINOPHIL % 7.6 % (0.0-4.0); HEMATOCRIT 24.7 % (39.0-51.0); HEMO FLAGS DIFF FINAL; LYMPHOCYTE # 1.4 TH/MM3 (1.0-4.8); MEAN CELL VOLUME 90.3 FL (80.0-100.0); MEAN CORPUSCULAR HGB CONC 34.3 % (32.0-36.0); MONO % 11.1 % (0.0-8.0); NEUT % 54.4 % (16.0-70.0); PLATELET COUNT 197 TH/MM3 (150-450); RED BLOOD COUNT 2.74 MIL/MM3 (4.50-5.90); RED CELL DISTRIBUTION WIDTH 13.4 % (11.6-17.2); WHITE BLOOD COUNT 5.3 TH/MM3 (4.0-11.0)
[2016-10-21] MEDS: INSULIN NovoLIN REGULAR SUPPLEMENTAL SCALE SQ SCH ×7 (04:00→23:43)
[2016-10-21 04:13] LABS: BICARBONATE 30.5 MEQ/L (21.0-32.0); MAGNESIUM 1.9 MG/DL (1.5-2.5); POTASSIUM 3.5 MEQ/L (3.5-5.1)
--- NOTE | 2016-10-21 04:51 | RADRPT ---
EXAM DATE/TIME: 10/21/2016 03:45 [facility] COMPARISON: CHEST SINGLE AP, October 19, 2016, 3:57. INDICATIONS : Pneumonia. Short of breath. MEDICAL HISTORY : Hypertension. SURGICAL HISTORY : Tracheostomy. ENCOUNTER: Subsequent ACUITY: 2 months PAIN SCORE: Non-responsive. LOCATION: Bilateral chest FINDINGS: Tracheostomy tube and right-sided central line noted. No pneumothorax. Heart is normal in size. Lungs are clear. No effusions. CONCLUSION: Clear lungs. Isael Gates Jr., MD on October 21, 2016 at 4:47 Board Certified Radiologist. This report was verified electronically.
[2016-10-21] MEDS: SENNOSIDES 8.6 MG TAB GT SCH ×2 (05:19→18:00)
[2016-10-21] MEDS: hydrALAZINE HCL 100 MG TAB PO SCH ×3 (05:23→22:00)
[2016-10-21] MEDS: cloNIDine HCL 0.1 MG TAB PO SCH ×3 (05:23→22:00)
[2016-10-21] MEDS: SODIUM CHLORIDE 0.9% FLUSH 5 ML FLUSH IVF SCH (07:21)
[2016-10-21] MEDS: BENEPROTEIN POWDER 1 PACK G-TUBE SCH ×6 (07:21→18:17)
[2016-10-21] MEDS: SODIUM CHLORIDE 0.9% FLUSH 5 ML FLUSH IV FLUSH SCH ×2 (07:21→20:23)
[2016-10-21] MEDS: NEOMYCIN/POLYMYXIN/BACITRACIN OINT 15 GM TUBE TOPICAL SCH ×2 (07:22→21:00)
[2016-10-21] MEDS: ARTIFICIAL TEARS OPTH SOLN 15 ML BTL EACH EYE SCH ×3 (07:22→18:17)
[2016-10-21] MEDS: amLODIPine BESYLATE 5 MG TAB PO SCH ×2 (07:53→20:23)
[2016-10-21] MEDS: LISINOPRIL 10 MG TAB PO SCH ×2 (07:53→20:23)
[2016-10-21] MEDS: METOPROLOL TARTRATE 25 MG TAB PO SCH ×2 (07:53→20:23)
--- NOTE | 2016-10-21 11:34 | HHI.PR ---
Subjective Remarks Patient nonverbal at baseline. Opens eyes, moved left side spontaneously and withdrawal right side with stimuli. no bleeding overnight. Vitals are stable, BP is controlled. Tolerates feedings. Objective Vitals Vital Signs Date Time Temp Pulse Resp B/P Pulse Ox O2 Delivery O2 Flow Rate FiO2 10/21/16 10:00 91 10/21/16 08:20 99 T-piece 28 10/21/16 08:00 91 10/21/16 08:00 98.2 91 19 124/65 99 10/21/16 07:00 99 T-Piece 28 10/21/16 06:00 99 10/21/16 04:00 96 10/21/16 04:00 98.4 96 14 130/71 100 10/21/16 02:00 84 10/21/16 00:00 98.8 103 14 122/72 98 10/21/16 00:00 103 10/20/16 22:00 98 10/20/16 21:50 99 T-piece 6.00 28 10/20/16 20:00 99.3 88 17 155/85 99 10/20/16 20:00 99 10/20/16 19:00 99 T-Piece 6.00 28 10/20/16 18:00 110 10/20/16 16:00 121 10/20/16 16:00 98.0 121 20 147/87 97 10/20/16 14:00 99 10/20/16 12:00 98.5 94 19 145/75 99 10/20/16 12:00 94 I/O 10/20/16 10/20/16 10/20/16 10/21/16 10/21/16 10/21/16 07:00 15:00 23:00 07:00 15:00 23:00 Intake Total 1528 ml 1223 ml 950 ml 1060 ml Output Total 1800 ml 725 ml 1500 ml 550 ml Balance -272 ml 498 ml -550 ml 510 ml IV Total 828 ml 746 ml 200 ml 165 ml Tube Feeding 300 ml 417 ml 550 ml 645 ml Tube Irrigant 400 ml 60 ml 200 ml 250 ml Output Urine Total 1500 ml 625 ml 1200 ml 450 ml Stool Total 300 ml 100 ml 300 ml 100 ml Gastric Drainage Total 0 ml 0 ml 0 ml Result Diagram: 10/21/16 0300 10/21/16 0300 Imaging Last Impressions Chest X-Ray 10/21/16599 Signed Impressions: Service Date/Time: Friday, October 21, 2016 03:45 - CONCLUSION: Clear lungs. Isael Gates Jr., MD Renal Ultrasound 10/18/16 Signed Impressions: Service Date/Time: Tuesday, October 18, 2016 10:53 - CONCLUSION: Small left renal cyst. Otherwise, negative. Vargas Freitas MD FACR Gastrostomy Tube Placement 09/19/16 Signed Impressions: Service Date/Time: Monday, September 19, 2016 16:01 - CONCLUSION: Uncomplicated gastrostomy tube placement as above. Chaitanya Rondon MD Head CT 09/17/16599 Signed Impressions: Service Date/Time: Saturday, September 17, 2016 04:14 - CONCLUSION: 1. Slightly evolving left basal ganglia hemorrhage with surrounding edema and mass effect similar to September 08. Right frontal ventriculostomy tube unchanged. Right ventricular size relatively stable. Bishop Fulton MD Head Magnetic Resonance Angiography 08/27/16 Signed Impressions: Service Date/Time: Saturday, August 27, 2016 16:49 - CONCLUSION: Negative MRA of the brain. Vargas Freitas MD FACR Brain MRI 08/27/16 Signed Impressions: Service Date/Time: Saturday, August 27, 2016 16:49 - CONCLUSION: 1. Large thalamic hemorrhage as described above. Extensive periventricular white matter changes are noted. There is compression of the third ventricle. Ventriculostomy is seen in the right lateral ventricle. 2. Hemorrhage does extend down the white matter tracts to the level of the right cerebral peduncle. Vargas Freitas MD FACR Objective Remarks GENERAL: 61 yo male, doesn't appear in acute distress, nonverbal. SKIN: Warm and dry. HEAD: Atraumatic. Normocephalic. EYES: Pupils equal and round. No scleral icterus. No injection or drainage. ENT: No nasal bleeding or discharge. Mucous membranes pink and moist. NECK: Trachea midline. No JVD. CARDIOVASCULAR: Regular rate and rhythm. RESPIRATORY: No accessory muscle use. Clear to auscultation. Breath sounds equal bilaterally. GASTROINTESTINAL: Abdomen soft, non-tender, nondistended. Hepatic and splenic margins not palpable. MUSCULOSKELETAL: Extremities without clubbing, cyanosis, or edema. No obvious deformities. NEUROLOGICAL: Awake and alert, not oriented, does not follow any commands. Opens eyes. Not tracking. Positive for right hemiparesis. PSYCHIATRIC: Appropriate mood and affect; insight and judgment normal. Procedures PEG Date of Insertion: Oct 18, 2016 Line: Central Venous Catheter Side: Right Location: Internal, Jugular A/P Problem List: (1) ICH (intracerebral hemorrhage) ICD Code: I61.9 Status: Acute (2) Hypertensive emergency ICD Code: I16.1 Status: Resolved (3) Hypokalemia ICD Code: E87.6 Status: Resolved (4) Respiratory failure ICD Code: J96.90 Status: Chronic (5) Gabrielle-Stewart tear ICD Code: K22.6 Status: Acute Assessment and Plan 61-year-old male with left basal ganglia hemorrhage, intraventricular extension test post placement of ventriculostomy drain. Left basal ganglia intraparenchymal hemorrhage with encephalopathy -s/p Right frontal ventriculostomy placement 08/26 with neurosurgery, CT head revealed left basal ganglia intraparenchymal hemorrhage 3.42 cm with extension to lateral ventricle, midline shift 5 mm to the right. Goal systolic blood pressure less than 140. EEG 08/30: generalized slowing, no seizure activity. Drain removed 09/17/16. Continue blood pressure control. Hypertensive emergency, now controlled -Initially managed with Cardizem drip. Resolved. -Continue Norvasc 10 mg daily, hydralazine to 100 mg every 6 hours, lisinopril 20 po bid, lopressor 100 bid. catapres 0.3 bid. Controlled. Acute hypoxic and hypercarbic respiratory failure secondary to Staphylococcus pneumonia- tracheostomy in place, continue T piece. Pulmonary following, chest x-ray from 09/22/16 shows improvement, still shows atelectasis. Continue pulmonary toilet, s/p Levaquin October 06. Pulmonary following. Monitor. Downgrade trach size per pulm Left pinna cellulitis: Improving. Topical antibiotic. Patient already on oral Levaquin. Wound care. Pressure offloading Escherichia coli UTI: s/p treatment Failure to thrive, protein energy malnutrition: status post PEG tube placement by IR 09/19/16, continue Glucerna, tube feeds at goal. Hyperglycemia of Critical Illness-continue sliding scale with Accu-Cheks. Stable discontinue sliding scale Hypernatremia and hypokalemia: Continue free water to 400 mL every 6 hours. Repeat BMP and magnesium improved, monitor. Diarrhea: Finished Levaquin, C. difficile checked but diarrhea resolved, cont Lactinex. No leukocytosis, doubt C. difficile. Hypokalemia-replaced. Monitor and replace as need. Prophylaxis - GI - Protonix - DVT - SCD Discharge Planning Discharge planning to SNF when arranged. SSI pending Discussed with the nurse Appears stable, will transfer to neuro floor Problem Qualifiers (1) ICH (intracerebral hemorrhage): Qualified Code: I61.0 - Nontraumatic subcortical hemorrhage of left cerebral hemisphere (2) Respiratory failure: Cielo Roa MD Oct 21, 2016 11:34
--- NOTE | 2016-10-21 12:13 | PD.PN.STU ---
Subjective Remarks No new changes, resting comfortably in bed, on T collar at 28% FiO2. Neuro status stable. No active bleeding, no N/V. Objective Vitals Vital Signs Date Time Temp Pulse Resp B/P Pulse Ox O2 Delivery O2 Flow Rate FiO2 10/21/16 12:00 98.3 84 18 120/64 96 10/21/16 12:00 84 10/21/16 10:00 91 10/21/16 08:20 99 T-piece 28 10/21/16 08:00 91 10/21/16 08:00 98.2 91 19 124/65 99 10/21/16 07:00 99 T-Piece 28 10/21/16 06:00 99 10/21/16 04:00 96 10/21/16 04:00 98.4 96 14 130/71 100 10/21/16 02:00 84 10/21/16 00:00 98.8 103 14 122/72 98 10/21/16 00:00 103 10/20/16 22:00 98 10/20/16 21:50 99 T-piece 6.00 28 10/20/16 20:00 99.3 88 17 155/85 99 10/20/16 20:00 99 10/20/16 19:00 99 T-Piece 6.00 28 10/20/16 18:00 110 10/20/16 16:00 121 10/20/16 16:00 98.0 121 20 147/87 97 10/20/16 14:00 99 I/O 10/20/16 10/20/16 10/20/16 10/21/16 10/21/16 10/21/16 07:00 15:00 23:00 07:00 15:00 23:00 Intake Total 1528 ml 1223 ml 950 ml 1060 ml Output Total 1800 ml 725 ml 1500 ml 550 ml Balance -272 ml 498 ml -550 ml 510 ml IV Total 828 ml 746 ml 200 ml 165 ml Tube Feeding 300 ml 417 ml 550 ml 645 ml Tube Irrigant 400 ml 60 ml 200 ml 250 ml Output Urine Total 1500 ml 625 ml 1200 ml 450 ml Stool Total 300 ml 100 ml 300 ml 100 ml Gastric Drainage Total 0 ml 0 ml 0 ml Result Diagram: 10/21/16 0300 10/21/16 0300 Objective Remarks Objective Remarks This is an averagely built middle-aged man who is responsive on a trach collar. He has weakness of right extremities. HEENT: Head normocephalic. Pupils reactive. Throat is clear. NECK: Supple without venous distension. No thyromegaly or lymphadenopathy. CHEST: Decreased breath sounds at the bases . Crackles at bases. HEART: The heart sounds are regular, S1-S2. No murmur. No S3. ABDOMEN: The abdomen is soft, nontender. Bowel sounds are active. No organomegaly. EXTREMITIES: Weakness of the right extremities. The patient does move his left extremities, can follow simple commands. RECTAL: Exam is deferred. A/P Assessment and Plan IMPRESSION 1. Status post left basal ganglia intraparenchymal hemorrhage with the right frontal ventriculostomy placement. 2. Acute respiratory failure resolved. 3. Bibasilar atelectasis and pneumonia. 4. History of uncontrolled hypertension. 5. Right hemiplegia. 6. GI Bleed with Anemia RESOLVED Plan : 1. Cont on T Bar 28 %. 2. Trach suction and lavage prn. 3. Nebs bid , duoneb. 4. G Tube with feeds. 5. PT evaluation. Eileen Castillo M3 Oct 21, 2016 12:13
--- NOTE | 2016-10-21 12:56 | HHI.PR ---
Subjective Remarks Awake and On a T Bar 28 %. No active GI bleed. Sat 98. No new change in neuro status.Hgb is stable. Objective Vital Signs Date Time Temp Pulse Resp B/P Pulse Ox O2 Delivery O2 Flow Rate FiO2 10/21/16 12:00 98.3 84 18 120/64 96 10/21/16 12:00 84 10/21/16 10:00 91 10/21/16 08:20 99 T-piece 28 10/21/16 08:00 91 10/21/16 08:00 98.2 91 19 124/65 99 10/21/16 07:00 99 T-Piece 28 10/21/16 06:00 99 10/21/16 04:00 96 10/21/16 04:00 98.4 96 14 130/71 100 10/21/16 02:00 84 10/21/16 00:00 98.8 103 14 122/72 98 10/21/16 00:00 103 10/20/16 22:00 98 10/20/16 21:50 99 T-piece 6.00 28 10/20/16 20:00 99.3 88 17 155/85 99 10/20/16 20:00 99 10/20/16 19:00 99 T-Piece 6.00 28 10/20/16 18:00 110 10/20/16 16:00 121 10/20/16 16:00 98.0 121 20 147/87 97 10/20/16 14:00 99 I/O 10/20/16 10/20/16 10/20/16 10/21/16 10/21/16 10/21/16 07:00 15:00 23:00 07:00 15:00 23:00 Intake Total 1528 ml 1223 ml 950 ml 1060 ml Output Total 1800 ml 725 ml 1500 ml 550 ml Balance -272 ml 498 ml -550 ml 510 ml IV Total 828 ml 746 ml 200 ml 165 ml Tube Feeding 300 ml 417 ml 550 ml 645 ml Tube Irrigant 400 ml 60 ml 200 ml 250 ml Output Urine Total 1500 ml 625 ml 1200 ml 450 ml Stool Total 300 ml 100 ml 300 ml 100 ml Gastric Drainage Total 0 ml 0 ml 0 ml Result Diagram: 10/21/16 0300 10/21/16 0300 Objective Remarks This is an averagely built middle-aged man who is responsive on a trach collar. He has weakness of his right extremities. HEENT: Head normocephalic. Pupils reactive. Throat is clear. NECK: Supple without venous distension. No thyromegaly or lymphadenopathy. CHEST: Decreased breath sounds at the bases . HEART: The heart sounds are regular, S1-S2. No murmur. No S3. ABDOMEN: The abdomen is soft, nontender. Bowel sounds are active. No organomegaly. EXTREMITIES: Weakness of the right extremities. The patient does move his left extremities., RECTAL: Exam is deferred. Assessment and Plan Assessment and Plan IMPRESSION 1. Status post left basal ganglia intraparenchymal hemorrhage with the right frontal ventriculostomy placement. 2. Acute respiratory failure resolved. 3. Bibasilar atelectasis and pneumonia. 4. History of uncontrolled hypertension. 5. Right hemiplegia. 6. GI Bleed with Anemia Plan : 1. Cont on T Bar 28 %. 2. Trach suction and lavage prn. 3. Nebs bid , duoneb. 4. Transfer to [facility]. 5. G Tube with feeds at 60 CC. 6. PT evaluation. Lynne White MD Oct 21, 2016 12:56
[2016-10-22] VITALS (9 sets, daily range): BP systolic 140–161; BP diastolic 71–96; PULSE 94–114; RESP 18–24; TEMP 98.4–98.9; O2SAT 97–99
[2016-10-22] MEDS: INSULIN NovoLIN REGULAR SUPPLEMENTAL SCALE SQ SCH ×6 (04:00→23:52)
[2016-10-22] MEDS: RESP: ALBUTEROL 2.5 MG/IPRATROPIUM 0.5 MG NEB (SCH) NEB (04:00)
[2016-10-22] MEDS: PANTOPRAZOLE SODIUM 40 MG VIAL IV PUSH SCH ×2 (04:12→14:36)
[2016-10-22] MEDS: SENNOSIDES 8.6 MG TAB GT SCH ×2 (04:12→18:00)
[2016-10-22] MEDS: hydrALAZINE HCL 100 MG TAB PO SCH ×3 (04:12→21:09)
[2016-10-22] MEDS: cloNIDine HCL 0.1 MG TAB PO SCH ×3 (04:12→21:08)
[2016-10-22] MEDS: BENEPROTEIN POWDER 1 PACK G-TUBE SCH ×6 (09:00→18:00)
[2016-10-22] MEDS: SODIUM CHLORIDE 0.9% FLUSH 5 ML FLUSH IVF SCH (09:00)
[2016-10-22] MEDS: NEOMYCIN/POLYMYXIN/BACITRACIN OINT 15 GM TUBE TOPICAL SCH ×2 (09:00→21:11)
[2016-10-22] MEDS: ARTIFICIAL TEARS OPTH SOLN 15 ML BTL EACH EYE SCH ×2 (09:00→18:00)
[2016-10-22] MEDS: SODIUM CHLORIDE 0.9% FLUSH 5 ML FLUSH IV FLUSH SCH ×2 (09:00→21:00)
[2016-10-22] MEDS: LISINOPRIL 10 MG TAB PO SCH ×2 (09:07→21:08)
[2016-10-22] MEDS: METOPROLOL TARTRATE 25 MG TAB PO SCH ×2 (09:07→21:08)
[2016-10-22] MEDS: amLODIPine BESYLATE 5 MG TAB PO SCH ×2 (09:08→21:08)
[2016-10-22] MEDS: PIPERACIL-TAZO 4.5 GM PREMIX 100 ML IV SCH ×3 (09:28→23:50)
[2016-10-22] MEDS: RESP: ALBUTEROL 2.5 MG/IPRATROPIUM 0.5 MG NEB (PRN) INH (12:24)
--- NOTE | 2016-10-22 15:08 | HHI.PR ---
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 Doesn't follow commands. Moving left side of the body involuntarily Vital signs are stable Objective Vitals Vital Signs Date Time Temp Pulse Resp B/P Pulse Ox O2 Delivery O2 Flow Rate FiO2 10/22/16 12:24 98 T-piece 5.00 28 10/22/16 12:00 98.4 112 20 161/84 99 10/22/16 08:00 98.9 112 21 140/71 97 10/22/16 06:00 114 10/22/16 04:00 96 10/22/16 04:00 98.5 96 18 140/72 98 10/22/16 02:00 94 10/22/16 00:00 107 10/22/16 00:00 98.8 107 24 149/96 98 10/21/16 22:00 114 10/21/16 21:13 100 T-piece 5.00 28 10/21/16 20:00 98.9 96 20 120/70 96 10/21/16 20:00 96 10/21/16 19:00 96 T-Piece 28 10/21/16 18:00 100 10/21/16 16:00 106 10/21/16 16:00 98.6 106 22 117/61 97 I/O 10/21/16 10/21/16 10/21/16 10/22/16 10/22/16 10/22/16 07:00 15:00 23:00 07:00 15:00 23:00 Intake Total 1060 ml 725 ml 648 ml 709 ml 592 ml Output Total 550 ml 300 ml 1100 ml 300 ml 950 ml Balance 510 ml 425 ml -452 ml 409 ml -358 ml IV Total 165 ml 178 ml 285 ml Tube Feeding 645 ml 487 ml 528 ml 304 ml 492 ml Tube Irrigant 250 ml 60 ml 120 ml 120 ml Other 100 ml Output Urine Total 450 ml 250 ml 850 ml 300 ml 950 ml Stool Total 100 ml 50 ml 250 ml 0 ml Gastric Drainage Total 0 ml # Bowel Movements 4 Result Diagram: 10/21/16 0300 10/21/16 0300 Objective Remarks GENERAL: 61 yo male, doesn't appear in acute distress, nonverbal. SKIN: Warm and dry. HEAD: Atraumatic. Normocephalic. EYES: Pupils equal and round. No scleral icterus. No injection or drainage. ENT: No nasal bleeding or discharge. Mucous membranes pink and moist. NECK: Trachea midline. No JVD. CARDIOVASCULAR: Regular rate and rhythm. RESPIRATORY: No accessory muscle use. Clear to auscultation. Breath sounds equal bilaterally. GASTROINTESTINAL: Abdomen soft, non-tender, nondistended. Hepatic and splenic margins not palpable. MUSCULOSKELETAL: Extremities without clubbing, cyanosis, or edema. No obvious deformities. NEUROLOGICAL: Awake and alert, not oriented, does not follow any commands. Opens eyes. Not tracking. Positive for right hemiparesis. PSYCHIATRIC: Appropriate mood and affect; insight and judgment normal. Procedures PEG Date of Insertion: Oct 18, 2016 Line: Central Venous Catheter Side: Right Location: Internal, Jugular A/P Problem List: (1) ICH (intracerebral hemorrhage) ICD Code: I61.9 Status: Acute (2) Hypertensive emergency ICD Code: I16.1 Status: Resolved (3) Hypokalemia ICD Code: E87.6 Status: Resolved (4) Respiratory failure ICD Code: J96.90 Status: Chronic (5) Gabrielle-Stewart tear ICD Code: K22.6 Status: Acute Assessment and Plan 61-year-old male with left basal ganglia hemorrhage, intraventricular extension test post placement of ventriculostomy drain. Left basal ganglia intraparenchymal hemorrhage with encephalopathy -s/p Right frontal ventriculostomy placement 08/26 with neurosurgery, CT head revealed left basal ganglia intraparenchymal hemorrhage 3.42 cm with extension to lateral ventricle, midline shift 5 mm to the right. Goal systolic blood pressure less than 140. EEG 08/30: generalized slowing, no seizure activity. Drain removed 09/17/16. Continue blood pressure control. Hypertensive emergency, now controlled -Initially managed with Cardizem drip. Resolved. -Continue Norvasc 10 mg daily, hydralazine to 100 mg every 6 hours, lisinopril 20 po bid, lopressor 100 bid. catapres 0.3 bid. Controlled. Acute hypoxic and hypercarbic respiratory failure secondary to Staphylococcus pneumonia- tracheostomy in place, continue T piece. Pulmonary following, chest x-ray from 09/22/16 shows improvement, still shows atelectasis. Continue pulmonary toilet, s/p Levaquin October 06. Pulmonary following. Monitor. Downgrade trach size per pulm Left pinna cellulitis: Improving. Topical antibiotic. Patient already on oral Levaquin. Wound care. Pressure offloading Escherichia coli UTI: s/p treatment Failure to thrive, protein energy malnutrition: status post PEG tube placement by IR 09/19/16, continue Glucerna, tube feeds at goal. Hyperglycemia of Critical Illness-continue sliding scale with Accu-Cheks. Stable discontinue sliding scale Hypernatremia and hypokalemia: Continue free water to 400 mL every 6 hours. Repeat BMP and magnesium improved, monitor. Diarrhea: Finished Levaquin, C. difficile checked but diarrhea resolved, cont Lactinex. No leukocytosis, doubt C. difficile. Hypokalemia-replaced. Monitor and replace as need. Prophylaxis - GI - Protonix - DVT - SCD Discharge Planning Discharge planning to SNF when arranged. SSI pending Discussed with the nurse Appears stable, will transfer to neuro floor Problem Qualifiers (1) ICH (intracerebral hemorrhage): Qualified Code: I61.0 - Nontraumatic subcortical hemorrhage of left cerebral hemisphere (2) Respiratory failure: Cielo Roa MD Oct 22, 2016 15:08
--- NOTE | 2016-10-22 19:21 | HHI.PR ---
Subjective Remarks Awake and On a T Bar 28 %. Sat 97.Good output No new change in neuro status.Hgb is stable. Objective Vital Signs Date Time Temp Pulse Resp B/P Pulse Ox O2 Delivery O2 Flow Rate FiO2 10/22/16 14:00 98 T-Piece 28 10/22/16 12:24 98 T-piece 5.00 28 10/22/16 12:00 98.4 112 20 161/84 99 10/22/16 12:00 99 10/22/16 08:00 98.9 112 21 140/71 97 10/22/16 06:00 114 10/22/16 04:00 96 10/22/16 04:00 98.5 96 18 140/72 98 10/22/16 02:00 94 10/22/16 00:00 107 10/22/16 00:00 98.8 107 24 149/96 98 10/21/16 22:00 114 10/21/16 21:13 100 T-piece 5.00 28 10/21/16 20:00 98.9 96 20 120/70 96 10/21/16 20:00 96 I/O 10/21/16 10/21/16 10/21/16 10/22/16 10/22/16 10/22/16 07:00 15:00 23:00 07:00 15:00 23:00 Intake Total 1060 ml 725 ml 648 ml 709 ml 592 ml Output Total 550 ml 300 ml 1100 ml 300 ml 950 ml 1100 ml Balance 510 ml 425 ml -452 ml 409 ml -358 ml -1100 ml IV Total 165 ml 178 ml 285 ml Tube Feeding 645 ml 487 ml 528 ml 304 ml 492 ml Tube Irrigant 250 ml 60 ml 120 ml 120 ml Other 100 ml Output Urine Total 450 ml 250 ml 850 ml 300 ml 950 ml 1100 ml Stool Total 100 ml 50 ml 250 ml 0 ml Gastric Drainage Total 0 ml # Voids 1 # Bowel Movements 4 Result Diagram: 10/21/16 0300 10/21/16 0300 Objective Remarks This is an averagely built middle-aged man who is responsive on a trach collar. He has weakness of his right extremities. HEENT: Head normocephalic. Pupils reactive. Throat is clear. NECK: Supple without venous distension. No thyromegaly or lymphadenopathy. CHEST: Decreased breath sounds at the bases .Occ wheeze HEART: The heart sounds are regular, S1-S2. No murmur. No S3. ABDOMEN: The abdomen is soft, nontender. Bowel sounds are active. No organomegaly. EXTREMITIES: Weakness of the right extremities. The patient does move his left extremities., RECTAL: Exam is deferred. Assessment and Plan Assessment and Plan IMPRESSION 1. Status post left basal ganglia intraparenchymal hemorrhage with the right frontal ventriculostomy placement. 2. Acute respiratory failure resolved. 3. Bibasilar atelectasis and pneumonia. 4. History of uncontrolled hypertension. 5. Right hemiplegia. 6. GI Bleed with Anemia Plan : 1. Cont on T Bar 25 %. 2. Trach suction and lavage prn. 3. Nebs bid , duoneb. 4. Transfer to tele. 5. G Tube with feeds at 60 CC. 6. CBC, CMP Lynne White MD Oct 22, 2016 19:21
[2016-10-23] VITALS (7 sets, daily range): BP systolic 115–145; BP diastolic 60–87; PULSE 76–106; RESP 18–21; TEMP 96.9–98.9; O2SAT 97–100
[2016-10-23] MEDS: INSULIN NovoLIN REGULAR SUPPLEMENTAL SCALE SQ SCH ×6 (04:00→23:44)
[2016-10-23] MEDS: PANTOPRAZOLE SODIUM 40 MG VIAL IV PUSH SCH (04:24)
[2016-10-23] MEDS: SENNOSIDES 8.6 MG TAB GT SCH ×2 (06:00→18:00)
[2016-10-23] MEDS: cloNIDine HCL 0.1 MG TAB PO SCH ×3 (06:22→21:37)
[2016-10-23] MEDS: hydrALAZINE HCL 100 MG TAB PO SCH ×3 (06:22→21:37)
[2016-10-23] MEDS: PIPERACIL-TAZO 4.5 GM PREMIX 100 ML IV SCH (08:19)
[2016-10-23] MEDS: METOPROLOL TARTRATE 25 MG TAB PO SCH ×2 (08:19→21:37)
[2016-10-23] MEDS: amLODIPine BESYLATE 5 MG TAB PO SCH ×2 (08:19→21:37)
[2016-10-23] MEDS: LISINOPRIL 10 MG TAB PO SCH ×2 (08:20→21:38)
[2016-10-23] MEDS: NEOMYCIN/POLYMYXIN/BACITRACIN OINT 15 GM TUBE TOPICAL SCH ×2 (08:20→21:38)
[2016-10-23] MEDS: ARTIFICIAL TEARS OPTH SOLN 15 ML BTL EACH EYE SCH ×3 (08:40→18:10)
[2016-10-23] MEDS: SODIUM CHLORIDE 0.9% FLUSH 5 ML FLUSH IVF SCH (08:40)
[2016-10-23] MEDS: BENEPROTEIN POWDER 1 PACK G-TUBE SCH ×6 (08:40→18:00)
[2016-10-23] MEDS: SODIUM CHLORIDE 0.9% FLUSH 5 ML FLUSH IV FLUSH SCH ×2 (08:40→21:00)
--- NOTE | 2016-10-23 11:19 | HHI.PR ---
Subjective Remarks In bed, nio change . Evaluated by wound care, no pressure ulcers so far. VSS/ Monitor Objective Vitals Vital Signs Date Time Temp Pulse Resp B/P Pulse Ox O2 Delivery O2 Flow Rate FiO2 10/23/16 10:28 T-Piece 10/23/16 08:00 96.9 86 20 127/60 100 10/23/16 06:30 97.7 100 19 115/70 99 10/23/16 00:30 98.9 106 21 120/68 97 10/22/16 23:50 T-Piece 10/22/16 21:21 98 T-piece 28 10/22/16 20:00 98.7 114 18 142/81 99 10/22/16 14:00 98 T-Piece 10/22/16 12:24 98 T-piece 5.00 28 10/22/16 12:00 98.4 112 20 161/84 99 10/22/16 12:00 99 I/O 10/22/16 10/22/16 10/22/16 10/23/16 10/23/16 10/23/16 07:00 15:00 23:00 07:00 15:00 23:00 Intake Total 709 ml 592 ml 0 ml Output Total 300 ml 950 ml 1100 ml 600 ml Balance 409 ml -358 ml -1100 ml -600 ml Intake Oral 0 ml IV Total 285 ml Tube Feeding 304 ml 492 ml Tube Irrigant 120 ml Other 100 ml Output Urine Total 300 ml 950 ml 1100 ml 600 ml Stool Total 0 ml # Voids 1 # Bowel Movements 4 2 Result Diagram: 10/21/16 0300 10/21/16 0300 Imaging Last Impressions Chest X-Ray 10/21/16 0600 Signed Impressions: Service Date/Time: Friday, October 21, 2016 03:45 - CONCLUSION: Clear lungs. Isael Gates Jr., MD Renal Ultrasound 10/18/16 0000 Signed Impressions: Service Date/Time: Tuesday, October 18, 2016 10:53 - CONCLUSION: Small left renal cyst. Otherwise, negative. Vargas Freitas MD FACR Gastrostomy Tube Placement 09/19/16 0000 Signed Impressions: Service Date/Time: Monday, September 19, 2016 16:01 - CONCLUSION: Uncomplicated gastrostomy tube placement as above. Chaitanya Rondon MD Head CT 09/17/16 0600 Signed Impressions: Service Date/Time: Saturday, September 17, 2016 04:14 - CONCLUSION: 1. Slightly evolving left basal ganglia hemorrhage with surrounding edema and mass effect similar to September 08. Right frontal ventriculostomy tube unchanged. Right ventricular size relatively stable. Bishop Fulton MD Head Magnetic Resonance Angiography 08/27/16 0000 Signed Impressions: Service Date/Time: Saturday, August 27, 2016 16:49 - CONCLUSION: Negative MRA of the brain. Vargas Freitas MD FACR Brain MRI 08/27/16 0000 Signed Impressions: Service Date/Time: Saturday, August 27, 2016 16:49 - CONCLUSION: 1. Large thalamic hemorrhage as described above. Extensive periventricular white matter changes are noted. There is compression of the third ventricle. Ventriculostomy is seen in the right lateral ventricle. 2. Hemorrhage does extend down the white matter tracts to the level of the right cerebral peduncle. Vargas Freitas MD FACR Objective Remarks GENERAL: 61 yo male, doesn't appear in acute distress, nonverbal. SKIN: Warm and dry. HEAD: Atraumatic. Normocephalic. EYES: Pupils equal and round. No scleral icterus. No injection or drainage. ENT: No nasal bleeding or discharge. Mucous membranes pink and moist. NECK: Trachea midline. No JVD. CARDIOVASCULAR: Regular rate and rhythm. RESPIRATORY: No accessory muscle use. Clear to auscultation. Breath sounds equal bilaterally. GASTROINTESTINAL: Abdomen soft, non-tender, nondistended. Hepatic and splenic margins not palpable. MUSCULOSKELETAL: Extremities without clubbing, cyanosis, or edema. No obvious deformities. NEUROLOGICAL: Awake and alert, not oriented, does not follow any commands. Opens eyes. Not tracking. Positive for right hemiparesis. PSYCHIATRIC: Appropriate mood and affect; insight and judgment normal. Procedures PEG Date of Insertion: Oct 18, 2016 Line: Central Venous Catheter Side: Right Location: Internal, Jugular A/P Problem List: (1) ICH (intracerebral hemorrhage) ICD Code: I61.9 Status: Acute (2) Hypertensive emergency ICD Code: I16.1 Status: Resolved (3) Hypokalemia ICD Code: E87.6 Status: Resolved (4) Respiratory failure ICD Code: J96.90 Status: Chronic (5) Gabrielle-Stewart tear ICD Code: K22.6 Status: Acute Assessment and Plan 61-year-old male with left basal ganglia hemorrhage, intraventricular extension test post placement of ventriculostomy drain. Left basal ganglia intraparenchymal hemorrhage with encephalopathy -s/p Right frontal ventriculostomy placement 08/26 with neurosurgery, CT head revealed left basal ganglia intraparenchymal hemorrhage 3.42 cm with extension to lateral ventricle, midline shift 5 mm to the right. Goal systolic blood pressure less than 140. EEG 08/30: generalized slowing, no seizure activity. Drain removed 09/17/16. Continue blood pressure control. Hypertensive emergency, now controlled -Initially managed with Cardizem drip. Resolved. -Continue Norvasc 10 mg daily, hydralazine to 100 mg every 6 hours, lisinopril 20 po bid, lopressor 100 bid. catapres 0.3 bid. Controlled. Acute hypoxic and hypercarbic respiratory failure secondary to Staphylococcus pneumonia- tracheostomy in place, continue T piece. Pulmonary following, chest x-ray from 09/22/16 shows improvement, still shows atelectasis. Continue pulmonary toilet, s/p Levaquin October 06. Pulmonary following. Monitor. Downgrade trach size per pulm Left pinna cellulitis: Improving. Topical antibiotic. Patient already on oral Levaquin. Wound care. Pressure offloading Escherichia coli UTI: s/p treatment Failure to thrive, protein energy malnutrition: status post PEG tube placement by IR 09/19/16, continue Glucerna, tube feeds at goal. Hyperglycemia of Critical Illness-continue sliding scale with Accu-Cheks. Stable discontinue sliding scale Hypernatremia and hypokalemia: Continue free water to 400 mL every 6 hours. Repeat BMP and magnesium improved, monitor. Diarrhea: Finished Levaquin, C. difficile checked but diarrhea resolved, cont Lactinex. No leukocytosis, doubt C. difficile. Hypokalemia-replaced. Monitor and replace as need. Prophylaxis - GI - Protonix - DVT - SCD Discharge Planning Discharge planning to SNF when arranged. SSI pending Discussed with the nurse Appears stable. Monitor Problem Qualifiers (1) ICH (intracerebral hemorrhage): Qualified Code: I61.0 - Nontraumatic subcortical hemorrhage of left cerebral hemisphere (2) Respiratory failure: Cielo Roa MD Oct 23, 2016 11:19
--- NOTE | 2016-10-23 13:33 | PD.PN.STU ---
Subjective Remarks Patient on Tbar FiO2 28% sats 99%. No wheezing, HgB stable, good bowel sounds. No neuro status changes. Objective Vitals Vital Signs Date Time Temp Pulse Resp B/P Pulse Ox O2 Delivery O2 Flow Rate FiO2 10/23/16 12:00 97.3 76 20 141/85 99 10/23/16 10:28 T-Piece 10/23/16 08:00 96.9 86 20 127/60 100 10/23/16 06:30 97.7 100 19 115/70 99 10/23/16 00:30 98.9 106 21 120/68 97 10/22/16 23:50 T-Piece 28 10/22/16 21:21 98 T-piece 28 10/22/16 20:00 98.7 114 18 142/81 99 10/22/16 14:00 98 T-Piece 28 I/O 10/22/16 10/22/16 10/22/16 10/23/16 10/23/16 10/23/16 07:00 15:00 23:00 07:00 15:00 23:00 Intake Total 709 ml 592 ml 0 ml Output Total 300 ml 950 ml 1100 ml 600 ml Balance 409 ml -358 ml -1100 ml -600 ml Intake Oral 0 ml IV Total 285 ml Tube Feeding 304 ml 492 ml Tube Irrigant 120 ml Other 100 ml Output Urine Total 300 ml 950 ml 1100 ml 600 ml Stool Total 0 ml # Voids 1 # Bowel Movements 4 2 Result Diagram: 10/21/16 0300 10/21/16 0300 Objective Remarks This is an averagely built middle-aged man who is responsive on a trach collar. He has weakness of his right extremities, spontaneously moves left extremities, responds to name call. HEENT: Head normocephalic. Pupils reactive. Throat is clear. NECK: Supple without venous distension. No thyromegaly or lymphadenopathy. CHEST: Decreased breath sounds at the bases .Occ wheeze HEART: The heart sounds are regular, S1-S2. No murmur. No S3. ABDOMEN: The abdomen is soft, nontender. Bowel sounds heard in all four quadrants. EXTREMITIES: Weakness of the right extremities. Spontaneous movement of left extremities, no neuro status changes. RECTAL: Exam is deferred. A/P Assessment and Plan IMPRESSION 1. Status post left basal ganglia intraparenchymal hemorrhage with the right frontal ventriculostomy placement. 2. Acute respiratory failure resolved. 3. Bibasilar atelectasis and pneumonia. 4. History of uncontrolled hypertension. 5. Right hemiplegia. 6. GI Bleed with Anemia RESOLVED Plan : 1. Replace T bar with trach collar 2. Trach suction and lavage prn. 3. Nebs bid , duoneb. 4. Continue G Tube with feeds at 60 CC. 5. Consult case management for NH placement Eileen Castillo M3 Oct 23, 2016 13:33
[2016-10-23] MEDS: ENOXAPARIN SODIUM 40 MG/0.4 ML SYRINGE SQ SCH (15:15)
--- NOTE | 2016-10-23 18:32 | HHI.PR ---
Subjective Remarks Awake and On a T Bar 28 %. Sat 97.CXR was clear. No new change in neuro status.Hgb is stable. Objective Vital Signs Date Time Temp Pulse Resp B/P Pulse Ox O2 Delivery O2 Flow Rate FiO2 10/23/16 17:40 98 T-piece 6.00 28 10/23/16 16:00 97.0 77 20 144/67 98 10/23/16 12:00 97.3 76 20 141/85 99 10/23/16 10:28 T-Piece 10/23/16 08:00 96.9 86 20 127/60 100 10/23/16 06:30 97.7 100 19 115/70 99 10/23/16 00:30 98.9 106 21 120/68 97 10/22/16 23:50 T-Piece 10/22/16 21:21 98 T-piece 28 10/22/16 20:00 98.7 114 18 142/81 99 I/O 10/22/16 10/22/16 10/22/16 10/23/16 10/23/16 10/23/16 07:00 15:00 23:00 07:00 15:00 23:00 Intake Total 709 ml 592 ml 0 ml Output Total 300 ml 950 ml 1100 ml 600 ml Balance 409 ml -358 ml -1100 ml -600 ml Intake Oral 0 ml IV Total 285 ml Tube Feeding 304 ml 492 ml Tube Irrigant 120 ml Other 100 ml Output Urine Total 300 ml 950 ml 1100 ml 600 ml Stool Total 0 ml # Voids 1 # Bowel Movements 4 2 1 Result Diagram: 10/21/16 0300 10/21/16 0300 Objective Remarks This is an averagely built middle-aged man who is responsive on a trach collar. He has weakness of his right extremities. HEENT: Head normocephalic. Pupils reactive. Throat is clear. NECK: Supple without venous distension. No thyromegaly or lymphadenopathy. CHEST: Decreased breath sounds at the bases .Clear. HEART: The heart sounds are regular, S1-S2. No murmur. No S3. ABDOMEN: The abdomen is soft, nontender. Bowel sounds are active. No organomegaly. EXTREMITIES: Weakness of the right extremities. The patient does move his left extremities., RECTAL: Exam is deferred. Assessment and Plan Assessment and Plan IMPRESSION 1. Status post left basal ganglia intraparenchymal hemorrhage with the right frontal ventriculostomy placement. 2. Acute respiratory failure resolved. 3. Bibasilar atelectasis and pneumonia. 4. History of uncontrolled hypertension. 5. Right hemiplegia. 6. GI Bleed with Anemia Plan : 1. Cont on T Bar 28 %. 2. Trach suction and lavage prn. 3. Nebs bid , duoneb. 4. Transfer to [facility]. 5. G Tube with feeds at 60 CC. 6. PT evaluation Lynne White MD Oct 23, 2016 18:32
[2016-10-23] MEDS: FERROUS SULFATE 300 MG /5ML UDC PO SCH (21:54)
[2016-10-24] VITALS: BP 133/82; PULSE 75; RESP 16; TEMP 97.2; O2SAT 100
[2016-10-24] MEDS: INSULIN NovoLIN REGULAR SUPPLEMENTAL SCALE SQ SCH ×5 (04:00→20:00)
[2016-10-24 04:06] VITALS: BP 122/77; PULSE 81; RESP 16; TEMP 96.6; O2SAT 94
[2016-10-24] MEDS: cloNIDine HCL 0.1 MG TAB PO SCH ×3 (05:49→21:47)
[2016-10-24] MEDS: hydrALAZINE HCL 100 MG TAB PO SCH ×3 (05:49→21:47)
[2016-10-24] MEDS: SENNOSIDES 8.6 MG TAB GT SCH ×2 (05:49→17:13)
[2016-10-24 08:00] VITALS: BP 122/79; PULSE 80; RESP 20; TEMP 97.6; O2SAT 100
[2016-10-24] MEDS: FERROUS SULFATE 300 MG /5ML UDC PO SCH ×2 (08:51→21:48)
[2016-10-24] MEDS: LISINOPRIL 10 MG TAB PO SCH ×2 (08:51→21:47)
[2016-10-24] MEDS: METOPROLOL TARTRATE 25 MG TAB PO SCH ×2 (08:51→21:47)
[2016-10-24] MEDS: NEOMYCIN/POLYMYXIN/BACITRACIN OINT 15 GM TUBE TOPICAL SCH ×2 (08:51→21:00)
[2016-10-24] MEDS: PANTOPRAZOLE SOD 40 MG DELAYED RELEASE TAB PO SCH (08:51)
[2016-10-24] MEDS: ARTIFICIAL TEARS OPTH SOLN 15 ML BTL EACH EYE SCH ×3 (08:51→17:14)
[2016-10-24] MEDS: BENEPROTEIN POWDER 1 PACK G-TUBE SCH ×6 (08:52→17:13)
[2016-10-24] MEDS: amLODIPine BESYLATE 5 MG TAB PO SCH ×2 (08:52→21:48)
[2016-10-24] MEDS: SODIUM CHLORIDE 0.9% FLUSH 5 ML FLUSH IV FLUSH SCH ×2 (08:53→21:00)
[2016-10-24] MEDS: SODIUM CHLORIDE 0.9% FLUSH 5 ML FLUSH IVF SCH (08:53)
--- NOTE | 2016-10-24 12:54 | HHI.PR ---
Subjective Remarks Awake and On a T Bar 28 %. Sat 97. He seems to be following commands.Shook head, No. No new change in neuro status.Hgb is stable. Objective Vital Signs Date Time Temp Pulse Resp B/P Pulse Ox O2 Delivery O2 Flow Rate FiO2 10/24/16 09:16 T-Piece 28 10/24/16 08:00 97.6 80 20 122/79 100 10/24/16 04:06 96.6 81 16 122/77 94 10/24/16 00:06 T-Piece 28 10/24/16 00:00 97.2 75 16 133/82 100 10/23/16 20:00 97.7 82 18 145/87 99 10/23/16 17:40 98 T-piece 6.00 28 10/23/16 16:00 97.0 77 20 144/67 98 I/O 10/23/16 10/23/16 10/23/16 10/24/16 10/24/16 10/24/16 07:00 15:00 23:00 07:00 15:00 23:00 Intake Total 0 ml Output Total 600 ml 1300 ml Balance -600 ml -1300 ml Intake Oral 0 ml Output Urine Total 600 ml 1300 ml # Bowel Movements 2 1 1 Result Diagram: 10/21/16 0300 10/21/16 0300 Objective Remarks This is an averagely built middle-aged man who is responsive. collar. He has weakness of his right extremities. HEENT: Head normocephalic. Pupils reactive. Throat is clear. NECK: Supple without venous distension. No thyromegaly or lymphadenopathy. CHEST: Decreased breath sounds at the bases .Occ wheeze. HEART: The heart sounds are regular, S1-S2. No murmur. No S3. ABDOMEN: The abdomen is soft, nontender. Bowel sounds are active. No organomegaly. EXTREMITIES: Weakness of the right extremities. The patient does move his left extremities., RECTAL: Exam is deferred. Assessment and Plan Assessment and Plan IMPRESSION 1. Status post left basal ganglia intraparenchymal hemorrhage with the right frontal ventriculostomy placement. 2. Acute respiratory failure resolved. 3. Bibasilar atelectasis and pneumonia. 4. History of uncontrolled hypertension. 5. Right hemiplegia. 6. GI Bleed with Anemia Plan : 1. Cont on T Bar 28 %. 2. Trach suction and lavage prn. 3. Nebs bid , duoneb. 4. Transfer to rehab soon. 5. G Tube with feeds at 60 CC. 6. PT evaluation Lynne White MD Oct 24, 2016 12:54
[2016-10-24 13:23] VITALS: O2SAT 98
[2016-10-24] MEDS: ENOXAPARIN SODIUM 40 MG/0.4 ML SYRINGE SQ SCH (13:29)
--- NOTE | 2016-10-24 14:02 | HHI.PR ---
Subjective Remarks In bed, no change. Appears in nad. Moving left hand spontaneously, doesn't follow commands. VSS. Monitor Objective Vitals Vital Signs Date Time Temp Pulse Resp B/P Pulse Ox O2 Delivery O2 Flow Rate FiO2 10/24/16 13:23 98 28 10/24/16 09:16 T-Piece 28 10/24/16 08:00 97.6 80 20 122/79 100 10/24/16 04:06 96.6 81 16 122/77 94 10/24/16 00:06 T-Piece 10/24/16 00:00 97.2 75 16 133/82 100 10/23/16 20:00 97.7 82 18 145/87 99 10/23/16 17:40 98 T-piece 6.00 28 10/23/16 16:00 97.0 77 20 144/67 98 I/O 10/23/16 10/23/16 10/23/16 10/24/16 10/24/16 10/24/16 07:00 15:00 23:00 07:00 15:00 23:00 Intake Total 0 ml Output Total 600 ml 1300 ml Balance -600 ml -1300 ml Intake Oral 0 ml Output Urine Total 600 ml 1300 ml # Bowel Movements 2 1 1 Result Diagram: 10/21/16 0300 10/21/16 0300 Imaging Last Impressions Chest X-Ray 10/21/16 0600 Signed Impressions: Service Date/Time: Friday, October 21, 2016 03:45 - CONCLUSION: Clear lungs. Isael Gates Jr., MD Renal Ultrasound 10/18/16 0000 Signed Impressions: Service Date/Time: Tuesday, October 18, 2016 10:53 - CONCLUSION: Small left renal cyst. Otherwise, negative. Vargas Freitas MD FACR Gastrostomy Tube Placement 09/19/16 0000 Signed Impressions: Service Date/Time: Monday, September 19, 2016 16:01 - CONCLUSION: Uncomplicated gastrostomy tube placement as above. Chaitanya Rondon MD Head CT 09/17/16 0600 Signed Impressions: Service Date/Time: Saturday, September 17, 2016 04:14 - CONCLUSION: 1. Slightly evolving left basal ganglia hemorrhage with surrounding edema and mass effect similar to September 08. Right frontal ventriculostomy tube unchanged. Right ventricular size relatively stable. Bishop Fulton MD Head Magnetic Resonance Angiography 08/27/16 0000 Signed Impressions: Service Date/Time: Saturday, August 27, 2016 16:49 - CONCLUSION: Negative MRA of the brain. Vargas Freitas MD FACR Brain MRI 08/27/16 0000 Signed Impressions: Service Date/Time: Saturday, August 27, 2016 16:49 - CONCLUSION: 1. Large thalamic hemorrhage as described above. Extensive periventricular white matter changes are noted. There is compression of the third ventricle. Ventriculostomy is seen in the right lateral ventricle. 2. Hemorrhage does extend down the white matter tracts to the level of the right cerebral peduncle. Vargas Freitas MD FACR Objective Remarks GENERAL: 61 yo male, doesn't appear in acute distress, nonverbal. SKIN: Warm and dry. HEAD: Atraumatic. Normocephalic. EYES: Pupils equal and round. No scleral icterus. No injection or drainage. ENT: No nasal bleeding or discharge. Mucous membranes pink and moist. NECK: Trachea midline. No JVD. CARDIOVASCULAR: Regular rate and rhythm. RESPIRATORY: No accessory muscle use. Clear to auscultation. Breath sounds equal bilaterally. GASTROINTESTINAL: Abdomen soft, non-tender, nondistended. Hepatic and splenic margins not palpable. MUSCULOSKELETAL: Extremities without clubbing, cyanosis, or edema. No obvious deformities. NEUROLOGICAL: Awake and alert, not oriented, does not follow any commands. Opens eyes. Not tracking. Positive for right hemiparesis. PSYCHIATRIC: Appropriate mood and affect; insight and judgment normal. Procedures PEG Date of Insertion: Oct 18, 2016 Line: Central Venous Catheter Side: Right Location: Internal, Jugular A/P Problem List: (1) ICH (intracerebral hemorrhage) ICD Code: I61.9 Status: Acute (2) Hypertensive emergency ICD Code: I16.1 Status: Resolved (3) Hypokalemia ICD Code: E87.6 Status: Resolved (4) Respiratory failure ICD Code: J96.90 Status: Chronic (5) Gabrielle-Stewart tear ICD Code: K22.6 Status: Acute Assessment and Plan 61-year-old male with left basal ganglia hemorrhage, intraventricular extension test post placement of ventriculostomy drain. Left basal ganglia intraparenchymal hemorrhage with encephalopathy -s/p Right frontal ventriculostomy placement 08/26 with neurosurgery, CT head revealed left basal ganglia intraparenchymal hemorrhage 3.42 cm with extension to lateral ventricle, midline shift 5 mm to the right. Goal systolic blood pressure less than 140. EEG 08/30: generalized slowing, no seizure activity. Drain removed 09/17/16. Continue blood pressure control. Hypertensive emergency, now controlled -Initially managed with Cardizem drip. Resolved. -Continue Norvasc 10 mg daily, hydralazine to 100 mg every 6 hours, lisinopril 20 po bid, lopressor 100 bid. catapres 0.3 bid. Controlled. Acute hypoxic and hypercarbic respiratory failure secondary to Staphylococcus pneumonia- tracheostomy in place, continue T piece. Pulmonary following, chest x-ray from 09/22/16 shows improvement, still shows atelectasis. Continue pulmonary toilet, s/p Levaquin October 06. Pulmonary following. Monitor. Downgrade trach size per pulm Pulm following Left pinna cellulitis: Improving. Topical antibiotic. Patient already on oral Levaquin. Wound care. Pressure offloading Escherichia coli UTI: s/p treatment Failure to thrive, protein energy malnutrition: status post PEG tube placement by IR 09/19/16, continue Glucerna, tube feeds at goal. Hyperglycemia of Critical Illness-continue sliding scale with Accu-Cheks. Stable discontinue sliding scale Hypernatremia and hypokalemia: Continue free water to 400 mL every 6 hours. Repeat BMP and magnesium improved, monitor. Diarrhea: Finished Levaquin, C. difficile checked but diarrhea resolved, cont Lactinex. No leukocytosis, doubt C. difficile. Hypokalemia-replaced. Monitor and replace as need. Prophylaxis - GI - Protonix - DVT - SCD Discharge Planning Discharge planning to SNF when arranged. SSI pending Discussed with the nurse Appears stable. Monitor Problem Qualifiers (1) ICH (intracerebral hemorrhage): Qualified Code: I61.0 - Nontraumatic subcortical hemorrhage of left cerebral hemisphere (2) Respiratory failure: Cielo Roa MD Oct 24, 2016 14:02
[2016-10-24 16:00] VITALS: BP 135/67; PULSE 89; RESP 20; TEMP 97.7; O2SAT 95
[2016-10-24 20:00] VITALS: BP 163/92; PULSE 93; RESP 18; TEMP 98.8; O2SAT 94
[2016-10-25] VITALS (7 sets, daily range): BP systolic 142–167; BP diastolic 83–99; PULSE 88–106; RESP 16–20; TEMP 96.9–99; O2SAT 94–99
[2016-10-25] MEDS: INSULIN NovoLIN REGULAR SUPPLEMENTAL SCALE SQ SCH ×6 (04:00→20:00)
[2016-10-25] MEDS: SENNOSIDES 8.6 MG TAB GT SCH ×2 (04:27→18:17)
[2016-10-25] MEDS: hydrALAZINE HCL 100 MG TAB PO SCH ×3 (05:30→22:29)
[2016-10-25] MEDS: cloNIDine HCL 0.1 MG TAB PO SCH ×3 (05:30→22:29)
[2016-10-25] MEDS: ARTIFICIAL TEARS OPTH SOLN 15 ML BTL EACH EYE SCH ×3 (09:00→18:00)
[2016-10-25] MEDS: BENEPROTEIN POWDER 1 PACK G-TUBE SCH ×6 (09:00→18:00)
[2016-10-25] MEDS: METOPROLOL TARTRATE 25 MG TAB PO SCH ×2 (09:35→22:29)
[2016-10-25] MEDS: amLODIPine BESYLATE 5 MG TAB PO SCH ×2 (09:35→22:29)
[2016-10-25] MEDS: LISINOPRIL 10 MG TAB PO SCH ×2 (09:35→22:29)
[2016-10-25] MEDS: NEOMYCIN/POLYMYXIN/BACITRACIN OINT 15 GM TUBE TOPICAL SCH ×2 (09:37→22:30)
[2016-10-25] MEDS: PANTOPRAZOLE SOD 40 MG DELAYED RELEASE TAB PO SCH (09:38)
[2016-10-25] MEDS: SODIUM CHLORIDE 0.9% FLUSH 5 ML FLUSH IV FLUSH SCH ×2 (09:38→23:01)
[2016-10-25] MEDS: SODIUM CHLORIDE 0.9% FLUSH 5 ML FLUSH IVF SCH (09:38)
[2016-10-25] MEDS: FERROUS SULFATE 300 MG /5ML UDC PO SCH ×2 (09:41→22:28)
--- NOTE | 2016-10-25 10:41 | HHI.PR ---
Subjective Remarks Sleepy. Responding to tactile stimuli, opens eyes, doesn't seem to track. No events overnight. VSS. Objective Vitals Vital Signs Date Time Temp Pulse Resp B/P Pulse Ox O2 Delivery O2 Flow Rate FiO2 10/25/16 08:00 99.0 99 20 151/83 94 10/25/16 04:00 98.4 92 16 146/86 96 10/25/16 00:00 96.9 88 16 142/84 96 10/24/16 21:00 T-Piece 28 10/24/16 20:00 98.8 93 18 163/92 94 10/24/16 16:00 97.7 89 20 135/67 95 10/24/16 13:23 98 28 I/O 10/24/16 10/24/16 10/24/16 10/25/16 10/25/16 10/25/16 07:00 15:00 23:00 07:00 15:00 23:00 Intake Total 0 ml 1131 ml 60 ml Output Total 1300 ml 650 ml 300 ml 600 ml Balance -1300 ml -650 ml 831 ml -540 ml Intake Oral 0 ml Tube Feeding 1071 ml Other 60 ml 60 ml Output Urine Total 1300 ml 650 ml 300 ml 600 ml # Bowel Movements 1 2 1 2 Result Diagram: 10/21/16 0300 10/21/16 0300 Imaging Last Impressions Chest X-Ray 10/21/16 0600 Signed Impressions: Service Date/Time: Friday, October 21, 2016 03:45 - CONCLUSION: Clear lungs. Isael Gates Jr., MD Renal Ultrasound 10/18/16 0000 Signed Impressions: Service Date/Time: Tuesday, October 18, 2016 10:53 - CONCLUSION: Small left renal cyst. Otherwise, negative. Vargas Freitas MD FACR Gastrostomy Tube Placement 09/19/16 0000 Signed Impressions: Service Date/Time: Monday, September 19, 2016 16:01 - CONCLUSION: Uncomplicated gastrostomy tube placement as above. Chaitanya Rondon MD Head CT 09/17/16 0600 Signed Impressions: Service Date/Time: Saturday, September 17, 2016 04:14 - CONCLUSION: 1. Slightly evolving left basal ganglia hemorrhage with surrounding edema and mass effect similar to September 08. Right frontal ventriculostomy tube unchanged. Right ventricular size relatively stable. Bishop Fulton MD Head Magnetic Resonance Angiography 2/8/17 0000 Signed Impressions: Service Date/Time: Saturday, August 27, 2016 16:49 - CONCLUSION: Negative MRA of the brain. Vargas Freitas MD FACR Brain MRI 08/27/16 0000 Signed Impressions: Service Date/Time: Saturday, August 27, 2016 16:49 - CONCLUSION: 1. Large thalamic hemorrhage as described above. Extensive periventricular white matter changes are noted. There is compression of the third ventricle. Ventriculostomy is seen in the right lateral ventricle. 2. Hemorrhage does extend down the white matter tracts to the level of the right cerebral peduncle. Vargas Freitas MD FACR Objective Remarks GENERAL: 61 yo male, doesn't appear in acute distress, nonverbal. SKIN: Warm and dry. HEAD: Atraumatic. Normocephalic. EYES: Pupils equal and round. No scleral icterus. No injection or drainage. ENT: No nasal bleeding or discharge. Mucous membranes pink and moist. NECK: Trachea midline. No JVD. CARDIOVASCULAR: Regular rate and rhythm. RESPIRATORY: No accessory muscle use. Clear to auscultation. Breath sounds equal bilaterally. GASTROINTESTINAL: Abdomen soft, non-tender, nondistended. Hepatic and splenic margins not palpable. MUSCULOSKELETAL: Extremities without clubbing, cyanosis, or edema. No obvious deformities. NEUROLOGICAL: Awake and alert, not oriented, does not follow any commands. Opens eyes. Not tracking. Positive for right hemiparesis. PSYCHIATRIC: Appropriate mood and affect; insight and judgment normal. Procedures PEG Date of Insertion: Oct 18, 2016 Line: Central Venous Catheter Side: Right Location: Internal, Jugular A/P Problem List: (1) ICH (intracerebral hemorrhage) ICD Code: I61.9 Status: Acute (2) Hypertensive emergency ICD Code: I16.1 Status: Resolved (3) Hypokalemia ICD Code: E87.6 Status: Resolved (4) Respiratory failure ICD Code: J96.90 Status: Chronic (5) Gabrielle-Stewart tear ICD Code: K22.6 Status: Acute Assessment and Plan 61-year-old male with left basal ganglia hemorrhage, intraventricular extension test post placement of ventriculostomy drain. Left basal ganglia intraparenchymal hemorrhage with encephalopathy -s/p Right frontal ventriculostomy placement 08/26 with neurosurgery, CT head revealed left basal ganglia intraparenchymal hemorrhage 3.42 cm with extension to lateral ventricle, midline shift 5 mm to the right. Goal systolic blood pressure less than 140. EEG 08/30: generalized slowing, no seizure activity. Drain removed 09/17/16. Continue blood pressure control. Hypertensive emergency, now controlled -Initially managed with Cardizem drip. Resolved. -Continue Norvasc 10 mg daily, hydralazine to 100 mg every 6 hours, lisinopril 20 po bid, lopressor 100 bid. catapres 0.3 bid. Controlled. Acute hypoxic and hypercarbic respiratory failure secondary to Staphylococcus pneumonia- tracheostomy in place, continue T piece. Pulmonary following, chest x-ray from 09/22/16 shows improvement, still shows atelectasis. Continue pulmonary toilet, s/p Levaquin October 06. Pulmonary following. Monitor. Downgrade trach size per pulm Pulm following Left pinna cellulitis: Improving. Topical antibiotic. Patient already on oral Levaquin. Wound care. Pressure offloading Escherichia coli UTI: s/p treatment Failure to thrive, protein energy malnutrition: status post PEG tube placement by IR 09/19/16, continue Glucerna, tube feeds at goal. Hyperglycemia of Critical Illness-continue sliding scale with Accu-Cheks. Stable discontinue sliding scale Hypernatremia and hypokalemia: Continue free water to 400 mL every 6 hours. Repeat BMP and magnesium improved, monitor. Diarrhea: Finished Levaquin, C. difficile checked but diarrhea resolved, cont Lactinex. No leukocytosis, doubt C. difficile. Hypokalemia-replaced. Monitor and replace as need. Prophylaxis - GI - Protonix - DVT - SCD Discharge Planning Discharge planning to SNF when arranged. SSI pending. Case management following. Discussed with the nurse Appears stable. Monitor Problem Qualifiers (1) ICH (intracerebral hemorrhage): Qualified Code: I61.0 - Nontraumatic subcortical hemorrhage of left cerebral hemisphere (2) Respiratory failure: Cielo Roa MD Oct 25, 2016 10:41
[2016-10-25] MEDS: ENOXAPARIN SODIUM 40 MG/0.4 ML SYRINGE SQ SCH (13:30)
[2016-10-25] MEDS: ACETAMINOPHEN 325 MG TAB PO PRN (22:40)
[2016-10-26] VITALS (7 sets, daily range): BP systolic 128–156; BP diastolic 78–92; PULSE 81–92; RESP 18–20; TEMP 96–98.3; O2SAT 96–99
[2016-10-26] MEDS: INSULIN NovoLIN REGULAR SUPPLEMENTAL SCALE SQ SCH ×6 (01:57→20:00)
[2016-10-26] MEDS: ACETAMINOPHEN 325 MG TAB PO PRN (04:42)
[2016-10-26] MEDS: SENNOSIDES 8.6 MG TAB GT SCH ×2 (04:42→16:17)
[2016-10-26] MEDS: cloNIDine HCL 0.1 MG TAB PO SCH ×3 (04:42→23:21)
[2016-10-26] MEDS: hydrALAZINE HCL 100 MG TAB PO SCH ×3 (04:42→23:21)
--- NOTE | 2016-10-26 07:29 | HHI.PR ---
Subjective Remarks Turns his head with vocal stimuli. Appears in nad. VSS. No change. Objective Vitals Vital Signs Date Time Temp Pulse Resp B/P Pulse Ox O2 Delivery O2 Flow Rate FiO2 10/26/16 00:00 98.3 92 18 156/92 98 10/25/16 20:25 96 T-piece 28 10/25/16 20:00 98.8 106 18 167/99 98 10/25/16 16:00 98.2 104 20 146/85 95 10/25/16 12:00 98.0 99 20 156/93 99 10/25/16 09:00 94 T-Piece 6.00 28 10/25/16 08:00 99.0 99 20 151/83 94 I/O 10/25/16 10/25/16 10/25/16 10/26/16 10/26/16 10/26/16 07:00 15:00 23:00 07:00 15:00 23:00 Intake Total 60 ml 429 ml 700 ml Output Total 600 ml Balance -540 ml 429 ml 700 ml IV Total 0 ml Tube Feeding 369 ml 700 ml Other 60 ml 60 ml Output Urine Total 600 ml # Bowel Movements 2 Objective Remarks GENERAL: 61 yo male, doesn't appear in acute distress, nonverbal. SKIN: Warm and dry. HEAD: Atraumatic. Normocephalic. EYES: Pupils equal and round. No scleral icterus. No injection or drainage. ENT: No nasal bleeding or discharge. Mucous membranes pink and moist. NECK: Trachea midline. No JVD. CARDIOVASCULAR: Regular rate and rhythm. RESPIRATORY: No accessory muscle use. Clear to auscultation. Breath sounds equal bilaterally. GASTROINTESTINAL: Abdomen soft, non-tender, nondistended. Hepatic and splenic margins not palpable. MUSCULOSKELETAL: Extremities without clubbing, cyanosis, or edema. No obvious deformities. NEUROLOGICAL: Awake and alert, not oriented, does not follow any commands. Opens eyes. Not tracking. Positive for right hemiparesis. PSYCHIATRIC: Appropriate mood and affect; insight and judgment normal. Procedures PEG Date of Insertion: Oct 18, 2016 Line: Central Venous Catheter Side: Right Location: Internal, Jugular A/P Problem List: (1) ICH (intracerebral hemorrhage) ICD Code: I61.9 Status: Acute (2) Hypertensive emergency ICD Code: I16.1 Status: Resolved (3) Hypokalemia ICD Code: E87.6 Status: Resolved (4) Respiratory failure ICD Code: J96.90 Status: Chronic (5) Gabrielle-Stewart tear ICD Code: K22.6 Status: Acute Assessment and Plan 61-year-old male with left basal ganglia hemorrhage, intraventricular extension test post placement of ventriculostomy drain. Left basal ganglia intraparenchymal hemorrhage with encephalopathy -s/p Right frontal ventriculostomy placement 08/26 with neurosurgery, CT head revealed left basal ganglia intraparenchymal hemorrhage 3.42 cm with extension to lateral ventricle, midline shift 5 mm to the right. Goal systolic blood pressure less than 140. EEG 08/30: generalized slowing, no seizure activity. Drain removed 09/17/16. Continue blood pressure control. Hypertensive emergency, now controlled -Initially managed with Cardizem drip. Resolved. -Continue Norvasc 10 mg daily, hydralazine to 100 mg every 6 hours, lisinopril 20 po bid, lopressor 100 bid. catapres 0.3 bid. Controlled. Acute hypoxic and hypercarbic respiratory failure secondary to Staphylococcus pneumonia- tracheostomy in place, continue T piece. Pulmonary following, chest x-ray from 09/22/16 shows improvement, still shows atelectasis. Continue pulmonary toilet, s/p Levaquin October 06. Pulmonary following. Monitor. Downgrade trach size per pulm Pulm following Left pinna cellulitis: Improving. Topical antibiotic. Patient already on oral Levaquin. Wound care. Pressure offloading Escherichia coli UTI: s/p treatment Failure to thrive, protein energy malnutrition: status post PEG tube placement by IR 09/19/16, continue Glucerna, tube feeds at goal. Hyperglycemia of Critical Illness-continue sliding scale with Accu-Cheks. Stable discontinue sliding scale Hypernatremia and hypokalemia: Continue free water to 400 mL every 6 hours. Repeat BMP and magnesium improved, monitor. Diarrhea: Finished Levaquin, C. difficile checked but diarrhea resolved, cont Lactinex. No leukocytosis, doubt C. difficile. Hypokalemia-replaced. Monitor and replace as need. Prophylaxis - GI - Protonix - DVT - SCD Discharge Planning Discharge planning to SNF when arranged. SSI pending. Case management following. Discussed with the nurse Appears stable. Monitor Problem Qualifiers (1) ICH (intracerebral hemorrhage): Qualified Code: I61.0 - Nontraumatic subcortical hemorrhage of left cerebral hemisphere (2) Respiratory failure: Cielo Roa MD Oct 26, 2016 07:29
[2016-10-26] MEDS: amLODIPine BESYLATE 5 MG TAB PO SCH ×2 (08:48→23:21)
[2016-10-26] MEDS: METOPROLOL TARTRATE 25 MG TAB PO SCH ×2 (08:48→23:21)
[2016-10-26] MEDS: LISINOPRIL 10 MG TAB PO SCH ×2 (08:49→23:21)
[2016-10-26] MEDS: BENEPROTEIN POWDER 1 PACK G-TUBE SCH ×6 (08:49→16:17)
[2016-10-26] MEDS: ARTIFICIAL TEARS OPTH SOLN 15 ML BTL EACH EYE SCH ×3 (08:49→18:00)
[2016-10-26] MEDS: SODIUM CHLORIDE 0.9% FLUSH 5 ML FLUSH IV FLUSH SCH ×2 (08:49→23:22)
[2016-10-26] MEDS: FERROUS SULFATE 300 MG /5ML UDC PO SCH ×2 (08:49→23:21)
[2016-10-26] MEDS: NEOMYCIN/POLYMYXIN/BACITRACIN OINT 15 GM TUBE TOPICAL SCH ×2 (08:50→23:23)
[2016-10-26] MEDS: PANTOPRAZOLE SOD 40 MG DELAYED RELEASE TAB PO SCH (09:00)
[2016-10-26] MEDS: SODIUM CHLORIDE 0.9% FLUSH 5 ML FLUSH IVF SCH (09:00)
[2016-10-26] MEDS: ENOXAPARIN SODIUM 40 MG/0.4 ML SYRINGE SQ SCH (13:54)
[2016-10-27] VITALS (9 sets, daily range): BP systolic 139–150; BP diastolic 79–95; PULSE 77–113; RESP 18–20; TEMP 97–99.1; O2SAT 90–100
[2016-10-27] MEDS: hydrALAZINE HCL 100 MG TAB PO SCH ×3 (05:01→21:28)
[2016-10-27] MEDS: SENNOSIDES 8.6 MG TAB GT SCH ×2 (05:01→17:45)
[2016-10-27] MEDS: cloNIDine HCL 0.1 MG TAB PO SCH ×3 (05:01→21:28)
[2016-10-27] MEDS: INSULIN NovoLIN REGULAR SUPPLEMENTAL SCALE SQ SCH ×6 (05:50→20:00)
--- NOTE | 2016-10-27 09:38 | HHI.PR ---
Subjective Remarks Appears in nad. Opens eyes. VSS No events. Objective Vitals Vital Signs Date Time Temp Pulse Resp B/P Pulse Ox O2 Delivery O2 Flow Rate FiO2 10/27/16 08:10 T-Piece 6.00 28 10/27/16 04:00 97.5 77 18 144/79 97 10/27/16 00:00 97.0 85 19 139/85 90 10/26/16 23:00 94 T-Piece 6.00 28 10/26/16 20:55 98.0 87 19 129/78 99 10/26/16 20:15 96 T-piece 6.00 28 10/26/16 16:00 97.0 90 20 129/81 99 10/26/16 12:00 97.1 85 19 128/78 97 I/O 10/26/16 10/26/16 10/26/16 10/27/16 10/27/16 10/27/16 07:00 15:00 23:00 07:00 15:00 23:00 Intake Total 700 ml Output Total 1250 ml 150 ml 200 ml Balance -550 ml -150 ml -200 ml Tube Feeding 700 ml Output Urine Total 1250 ml 150 ml 200 ml # Bowel Movements 0 Objective Remarks GENERAL: 61 yo male, doesn't appear in acute distress, nonverbal. SKIN: Warm and dry. HEAD: Atraumatic. Normocephalic. EYES: Pupils equal and round. No scleral icterus. No injection or drainage. ENT: No nasal bleeding or discharge. Mucous membranes pink and moist. NECK: Trachea midline. No JVD. CARDIOVASCULAR: Regular rate and rhythm. RESPIRATORY: No accessory muscle use. Clear to auscultation. Breath sounds equal bilaterally. GASTROINTESTINAL: Abdomen soft, non-tender, nondistended. Hepatic and splenic margins not palpable. MUSCULOSKELETAL: Extremities without clubbing, cyanosis, or edema. No obvious deformities. NEUROLOGICAL: Awake and alert, not oriented, does not follow any commands. Opens eyes. Not tracking. Positive for right hemiparesis. PSYCHIATRIC: Appropriate mood and affect; insight and judgment normal. Procedures PEG Date of Insertion: Oct 18, 2016 Line: Central Venous Catheter Side: Right Location: Internal, Jugular A/P Problem List: (1) ICH (intracerebral hemorrhage) ICD Code: I61.9 Status: Acute (2) Hypertensive emergency ICD Code: I16.1 Status: Resolved (3) Hypokalemia ICD Code: E87.6 Status: Resolved (4) Respiratory failure ICD Code: J96.90 Status: Chronic (5) Gabrielle-Stewart tear ICD Code: K22.6 Status: Acute Assessment and Plan 61-year-old male with left basal ganglia hemorrhage, intraventricular extension test post placement of ventriculostomy drain. Left basal ganglia intraparenchymal hemorrhage with encephalopathy -s/p Right frontal ventriculostomy placement 08/26 with neurosurgery, CT head revealed left basal ganglia intraparenchymal hemorrhage 3.42 cm with extension to lateral ventricle, midline shift 5 mm to the right. Goal systolic blood pressure less than 140. EEG 08/30: generalized slowing, no seizure activity. Drain removed 09/17/16. Continue blood pressure control. Hypertensive emergency, now controlled -Initially managed with Cardizem drip. Resolved. -Continue Norvasc 10 mg daily, hydralazine to 100 mg every 6 hours, lisinopril 20 po bid, lopressor 100 bid. catapres 0.3 bid. Controlled. Acute hypoxic and hypercarbic respiratory failure secondary to Staphylococcus pneumonia- tracheostomy in place, continue T piece. Pulmonary following, chest x-ray from 09/22/16 shows improvement, still shows atelectasis. Continue pulmonary toilet, s/p Levaquin October 06. Pulmonary following. Monitor. Downgrade trach size per pulm Pulm following Left pinna cellulitis: Improving. Topical antibiotic. Patient already on oral Levaquin. Wound care. Pressure offloading Escherichia coli UTI: s/p treatment Failure to thrive, protein energy malnutrition: status post PEG tube placement by IR 09/19/16, continue Glucerna, tube feeds at goal. Hyperglycemia of Critical Illness-continue sliding scale with Accu-Cheks. Stable discontinue sliding scale Hypernatremia and hypokalemia: Continue free water to 400 mL every 6 hours. Repeat BMP and magnesium improved, monitor. Diarrhea: Finished Levaquin, C. difficile checked but diarrhea resolved, cont Lactinex. No leukocytosis, doubt C. difficile. Hypokalemia-replaced. Monitor and replace as need. Prophylaxis - GI - Protonix - DVT - SCD Discharge Planning Discharge planning to SNF when arranged. SSI pending. Case management following. Discussed with the nurse Appears stable. Monitor Problem Qualifiers (1) ICH (intracerebral hemorrhage): Qualified Code: I61.0 - Nontraumatic subcortical hemorrhage of left cerebral hemisphere (2) Respiratory failure: Cielo Roa MD Oct 27, 2016 09:38
[2016-10-27] MEDS: BENEPROTEIN POWDER 1 PACK G-TUBE SCH ×6 (10:14→17:45)
[2016-10-27] MEDS: SODIUM CHLORIDE 0.9% FLUSH 5 ML FLUSH IV FLUSH SCH ×2 (10:36→20:34)
[2016-10-27] MEDS: ARTIFICIAL TEARS OPTH SOLN 15 ML BTL EACH EYE SCH ×3 (10:36→17:45)
[2016-10-27] MEDS: SODIUM CHLORIDE 0.9% FLUSH 5 ML FLUSH IVF SCH (10:37)
[2016-10-27] MEDS: FERROUS SULFATE 300 MG /5ML UDC PO SCH ×2 (10:37→20:33)
[2016-10-27] MEDS: METOPROLOL TARTRATE 25 MG TAB PO SCH ×2 (10:38→20:35)
[2016-10-27] MEDS: PANTOPRAZOLE SOD 40 MG DELAYED RELEASE TAB PO SCH (10:38)
[2016-10-27] MEDS: amLODIPine BESYLATE 5 MG TAB PO SCH ×2 (10:38→20:36)
[2016-10-27] MEDS: NEOMYCIN/POLYMYXIN/BACITRACIN OINT 15 GM TUBE TOPICAL SCH ×2 (10:38→20:36)
[2016-10-27] MEDS: LISINOPRIL 10 MG TAB PO SCH ×2 (10:38→20:34)
[2016-10-27] MEDS: ENOXAPARIN SODIUM 40 MG/0.4 ML SYRINGE SQ SCH (14:29)
[2016-10-27] MEDS ORDERED: LORazepam 2 MG/ML VIAL IV ONE (15:00)
[2016-10-27] MEDS ORDERED: HALOPERIDOL LACTATE 5 MG/ML AMP IM PRN (17:00)
[2016-10-28] VITALS (8 sets, daily range): BP systolic 105–156; BP diastolic 61–92; PULSE 82–98; RESP 18–20; TEMP 95.8–98; O2SAT 95–100
[2016-10-28] MEDS: INSULIN NovoLIN REGULAR SUPPLEMENTAL SCALE SQ SCH ×7 (01:17→23:19)
[2016-10-28] MEDS: cloNIDine HCL 0.1 MG TAB PO SCH ×3 (05:02→23:04)
[2016-10-28] MEDS: hydrALAZINE HCL 100 MG TAB PO SCH ×3 (05:02→23:16)
[2016-10-28] MEDS: SENNOSIDES 8.6 MG TAB GT SCH ×2 (05:02→17:32)
--- NOTE | 2016-10-28 07:59 | HHI.PR ---
Subjective Remarks Patient in bed, responding to verbal stimuli, smiling. She was noted agitated yesterday in the afternoon. He received Ativan. I started Seroquel yesterday night. We will monitor. Noted mildly tachycardic heart rate in the 100s. Otherwise vital signs are stable. Objective Vitals Vital Signs Date Time Temp Pulse Resp B/P Pulse Ox O2 Delivery O2 Flow Rate FiO2 10/28/16 04:00 97.0 91 18 136/74 95 10/28/16 00:00 98.0 98 18 114/74 98 10/27/16 22:00 98 T-piece 5.00 28 10/27/16 20:45 96 T-piece 28 10/27/16 20:00 97.4 104 18 148/95 96 10/27/16 20:00 T-Piece 6.00 28 10/27/16 17:49 98.3 113 20 142/87 100 10/27/16 15:47 98.3 113 20 142/87 100 10/27/16 13:40 99.1 93 20 150/87 98 10/27/16 09:30 98 T-piece 28 10/27/16 08:10 T-Piece 6.00 28 I/O 10/27/16 10/27/16 10/27/16 10/28/16 10/28/16 10/28/16 07:00 15:00 23:00 07:00 15:00 23:00 Intake Total 809 ml 720 ml Output Total 1225 ml 1000 ml 900 ml Balance 809 ml -1225 ml -280 ml -900 ml Tube Feeding 809 ml 720 ml Output Urine Total 1225 ml 1000 ml 900 ml # Bowel Movements 1 Imaging Last Impressions Chest X-Ray 10/21/16 0600 Signed Impressions: Service Date/Time: Friday, October 21, 2016 03:45 - CONCLUSION: Clear lungs. Isael Gates Jr., MD Renal Ultrasound 10/18/16 0000 Signed Impressions: Service Date/Time: Tuesday, October 18, 2016 10:53 - CONCLUSION: Small left renal cyst. Otherwise, negative. Vargas Freitas MD FACR Gastrostomy Tube Placement 09/19/16 0000 Signed Impressions: Service Date/Time: Monday, September 19, 2016 16:01 - CONCLUSION: Uncomplicated gastrostomy tube placement as above. Chaitanya Rondon MD Head CT 09/17/16 0600 Signed Impressions: Service Date/Time: Saturday, September 17, 2016 04:14 - CONCLUSION: 1. Slightly evolving left basal ganglia hemorrhage with surrounding edema and mass effect similar to September 08. Right frontal ventriculostomy tube unchanged. Right ventricular size relatively stable. Bishop Fulton MD Head Magnetic Resonance Angiography 08/27/16 0000 Signed Impressions: Service Date/Time: Saturday, August 27, 2016 16:49 - CONCLUSION: Negative MRA of the brain. Vargas Freitas MD FACR Brain MRI 08/27/16 0000 Signed Impressions: Service Date/Time: Saturday, August 27, 2016 16:49 - CONCLUSION: 1. Large thalamic hemorrhage as described above. Extensive periventricular white matter changes are noted. There is compression of the third ventricle. Ventriculostomy is seen in the right lateral ventricle. 2. Hemorrhage does extend down the white matter tracts to the level of the right cerebral peduncle. Vargas Freitas MD FACR Objective Remarks GENERAL: 61 yo male, doesn't appear in acute distress, nonverbal. SKIN: Warm and dry. HEAD: Atraumatic. Normocephalic. EYES: Pupils equal and round. No scleral icterus. No injection or drainage. ENT: No nasal bleeding or discharge. Mucous membranes pink and moist. NECK: Trachea midline. No JVD. CARDIOVASCULAR: Regular rate and rhythm. RESPIRATORY: No accessory muscle use. Clear to auscultation. Breath sounds equal bilaterally. GASTROINTESTINAL: Abdomen soft, non-tender, nondistended. Hepatic and splenic margins not palpable. MUSCULOSKELETAL: Extremities without clubbing, cyanosis, or edema. No obvious deformities. NEUROLOGICAL: Awake and alert, not oriented, does not follow any commands. Opens eyes. Not tracking. Positive for right hemiparesis. PSYCHIATRIC: Appropriate mood and affect; insight and judgment normal. Procedures PEG Date of Insertion: Oct 18, 2016 Line: Central Venous Catheter Side: Right Location: Internal, Jugular A/P Problem List: (1) ICH (intracerebral hemorrhage) ICD Code: I61.9 Status: Acute (2) Hypertensive emergency ICD Code: I16.1 Status: Resolved (3) Hypokalemia ICD Code: E87.6 Status: Resolved (4) Respiratory failure ICD Code: J96.90 Status: Chronic (5) Gabrielle-Stewart tear ICD Code: K22.6 Status: Acute Assessment and Plan 61-year-old male with left basal ganglia hemorrhage, intraventricular extension test post placement of ventriculostomy drain. Left basal ganglia intraparenchymal hemorrhage with encephalopathy -s/p Right frontal ventriculostomy placement 08/26 with neurosurgery, CT head revealed left basal ganglia intraparenchymal hemorrhage 3.42 cm with extension to lateral ventricle, midline shift 5 mm to the right. Goal systolic blood pressure less than 140. EEG 08/30: generalized slowing, no seizure activity. Drain removed 09/17/16. Continue blood pressure control. Hypertensive emergency, now controlled -Initially managed with Cardizem drip. Resolved. -Continue Norvasc 10 mg daily, hydralazine to 100 mg every 6 hours, lisinopril 20 po bid, lopressor 100 bid. catapres 0.3 bid. Controlled. Acute hypoxic and hypercarbic respiratory failure secondary to Staphylococcus pneumonia- tracheostomy in place, continue T piece. Pulmonary following, chest x-ray from 09/22/16 shows improvement, still shows atelectasis. Continue pulmonary toilet, s/p Levaquin October 06. Pulmonary following. Monitor. Downgrade trach size per pulm Pulm following Left pinna cellulitis: Improving. Topical antibiotic. Patient already on oral Levaquin. Wound care. Pressure offloading Escherichia coli UTI: s/p treatment Failure to thrive, protein energy malnutrition: status post PEG tube placement by IR 09/19/16, continue Glucerna, tube feeds at goal. Hyperglycemia of Critical Illness-continue sliding scale with Accu-Cheks. Stable discontinue sliding scale Hypernatremia and hypokalemia: Continue free water to 400 mL every 6 hours. Repeat BMP and magnesium improved, monitor. Diarrhea: Finished Levaquin, C. difficile checked but diarrhea resolved, cont Lactinex. No leukocytosis, doubt C. difficile. Hypokalemia-replaced. Monitor and replace as need. Prophylaxis - GI - Protonix - DVT - SCD Discharge Planning Discharge planning to SNF when arranged. SSI pending. Case management following. Discussed with the nurse Appears stable. Monitor Problem Qualifiers (1) ICH (intracerebral hemorrhage): Qualified Code: I61.0 - Nontraumatic subcortical hemorrhage of left cerebral hemisphere (2) Respiratory failure: Cielo Roa MD Oct 28, 2016 07:59
[2016-10-28] MEDS: ARTIFICIAL TEARS OPTH SOLN 15 ML BTL EACH EYE SCH ×3 (08:37→17:33)
[2016-10-28] MEDS: BENEPROTEIN POWDER 1 PACK G-TUBE SCH ×7 (08:38→17:32)
[2016-10-28] MEDS: SODIUM CHLORIDE 0.9% FLUSH 5 ML FLUSH IVF SCH (08:38)
[2016-10-28] MEDS: FERROUS SULFATE 300 MG /5ML UDC PO SCH ×2 (08:38→23:03)
[2016-10-28] MEDS: SODIUM CHLORIDE 0.9% FLUSH 5 ML FLUSH IV FLUSH SCH ×2 (08:38→21:00)
[2016-10-28] MEDS: amLODIPine BESYLATE 5 MG TAB PO SCH ×2 (08:38→23:04)
[2016-10-28] MEDS: PANTOPRAZOLE SOD 40 MG DELAYED RELEASE TAB PO SCH (08:38)
[2016-10-28] MEDS: METOPROLOL TARTRATE 25 MG TAB PO SCH ×2 (08:39→23:03)
[2016-10-28] MEDS: QUEtiapine FUMARATE 25 MG TAB PO SCH ×2 (08:39→12:21)
[2016-10-28] MEDS: NEOMYCIN/POLYMYXIN/BACITRACIN OINT 15 GM TUBE TOPICAL SCH ×2 (08:39→23:17)
[2016-10-28] MEDS: LISINOPRIL 10 MG TAB PO SCH ×2 (08:39→23:04)
[2016-10-28] MEDS: ENOXAPARIN SODIUM 40 MG/0.4 ML SYRINGE SQ SCH (12:16)
[2016-10-29] VITALS (8 sets, daily range): BP systolic 108–151; BP diastolic 67–96; PULSE 80–102; RESP 20; TEMP 96.2–99.7; O2SAT 98–100
[2016-10-29] MEDS: INSULIN NovoLIN REGULAR SUPPLEMENTAL SCALE SQ SCH ×5 (04:00→20:00)
[2016-10-29] MEDS: SENNOSIDES 8.6 MG TAB GT SCH ×2 (05:25→17:25)
[2016-10-29] MEDS: cloNIDine HCL 0.1 MG TAB PO SCH ×3 (05:25→21:49)
[2016-10-29] MEDS: hydrALAZINE HCL 100 MG TAB PO SCH ×3 (05:25→21:48)
--- NOTE | 2016-10-29 08:09 | HHI.PR ---
Subjective Remarks In bed, appears in nad. He gets agitated at times. More awake and alert. Objective Vitals Vital Signs Date Time Temp Pulse Resp B/P Pulse Ox O2 Delivery O2 Flow Rate FiO2 10/29/16 04:41 98.2 84 20 151/92 98 10/29/16 04:25 97.2 99 20 143/95 99 10/29/16 04:23 99 T-Piece 6.00 28 10/29/16 00:18 97.2 99 20 143/95 98 10/28/16 21:23 98.0 97 19 156/92 100 10/28/16 20:11 99 T-piece 5.00 10/28/16 16:00 97.9 90 20 128/77 100 10/28/16 12:00 96.8 85 20 105/61 100 10/28/16 08:20 98 T-piece 28 I/O 10/28/16 10/28/16 10/28/16 10/29/16 10/29/16 10/29/16 07:00 15:00 23:00 07:00 15:00 23:00 Intake Total 720 ml 375 ml Output Total 1000 ml 900 ml 900 ml Balance -280 ml -900 ml 375 ml -900 ml Tube Feeding 720 ml 375 ml Output Urine Total 1000 ml 900 ml 900 ml # Bowel Movements 1 Imaging Last Impressions Chest X-Ray 10/21/16 0600 Signed Impressions: Service Date/Time: Friday, October 21, 2016 03:45 - CONCLUSION: Clear lungs. Isael Gates Jr., MD Renal Ultrasound 10/18/16 0000 Signed Impressions: Service Date/Time: Tuesday, October 18, 2016 10:53 - CONCLUSION: Small left renal cyst. Otherwise, negative. Vargas Freitas MD FACR Gastrostomy Tube Placement 09/19/16 0000 Signed Impressions: Service Date/Time: Monday, September 19, 2016 16:01 - CONCLUSION: Uncomplicated gastrostomy tube placement as above. Chaitanya Rondon MD Head CT 09/17/16 0600 Signed Impressions: Service Date/Time: Saturday, September 17, 2016 04:14 - CONCLUSION: 1. Slightly evolving left basal ganglia hemorrhage with surrounding edema and mass effect similar to September 08. Right frontal ventriculostomy tube unchanged. Right ventricular size relatively stable. Bishop Fulton MD Head Magnetic Resonance Angiography 08/27/16 0000 Signed Impressions: Service Date/Time: Saturday, August 27, 2016 16:49 - CONCLUSION: Negative MRA of the brain. Vargas Freitas MD FACR Brain MRI 08/27/16 0000 Signed Impressions: Service Date/Time: Saturday, August 27, 2016 16:49 - CONCLUSION: 1. Large thalamic hemorrhage as described above. Extensive periventricular white matter changes are noted. There is compression of the third ventricle. Ventriculostomy is seen in the right lateral ventricle. 2. Hemorrhage does extend down the white matter tracts to the level of the right cerebral peduncle. Vargas Freitas MD FACR Objective Remarks GENERAL: 61 yo male, doesn't appear in acute distress, nonverbal. SKIN: Warm and dry. HEAD: Atraumatic. Normocephalic. EYES: Pupils equal and round. No scleral icterus. No injection or drainage. ENT: No nasal bleeding or discharge. Mucous membranes pink and moist. NECK: Trachea midline. No JVD. CARDIOVASCULAR: Regular rate and rhythm. RESPIRATORY: No accessory muscle use. Clear to auscultation. Breath sounds equal bilaterally. GASTROINTESTINAL: Abdomen soft, non-tender, nondistended. Hepatic and splenic margins not palpable. MUSCULOSKELETAL: Extremities without clubbing, cyanosis, or edema. No obvious deformities. NEUROLOGICAL: Awake and alert, not oriented, does not follow any commands. Opens eyes. Not tracking. Positive for right hemiparesis. PSYCHIATRIC: Appropriate mood and affect; insight and judgment normal. Procedures PEG Date of Insertion: Oct 18, 2016 Line: Central Venous Catheter Side: Right Location: Internal, Jugular A/P Problem List: (1) ICH (intracerebral hemorrhage) ICD Code: I61.9 Status: Acute (2) Hypertensive emergency ICD Code: I16.1 Status: Resolved (3) Hypokalemia ICD Code: E87.6 Status: Resolved (4) Respiratory failure ICD Code: J96.90 Status: Chronic (5) Gabrielle-Stewart tear ICD Code: K22.6 Status: Acute Assessment and Plan 61-year-old male with left basal ganglia hemorrhage, intraventricular extension test post placement of ventriculostomy drain. Left basal ganglia intraparenchymal hemorrhage with encephalopathy -s/p Right frontal ventriculostomy placement 08/26 with neurosurgery, CT head revealed left basal ganglia intraparenchymal hemorrhage 3.42 cm with extension to lateral ventricle, midline shift 5 mm to the right. Goal systolic blood pressure less than 140. EEG 08/30: generalized slowing, no seizure activity. Drain removed 09/17/16. Continue blood pressure control. Hypertensive emergency, now controlled -Initially managed with Cardizem drip. Resolved. -Continue Norvasc 10 mg daily, hydralazine to 100 mg every 6 hours, lisinopril 20 po bid, lopressor 100 bid. catapres 0.3 bid. Controlled. Acute hypoxic and hypercarbic respiratory failure secondary to Staphylococcus pneumonia- tracheostomy in place, continue T piece. Pulmonary following, chest x-ray from 09/22/16 shows improvement, still shows atelectasis. Continue pulmonary toilet, s/p Levaquin October 06. Pulmonary following. Monitor. Downgrade trach size per pulm Pulm following Left pinna cellulitis: Improving. Topical antibiotic. Patient already on oral Levaquin. Wound care. Pressure offloading Escherichia coli UTI: s/p treatment Failure to thrive, protein energy malnutrition: status post PEG tube placement by IR 09/19/16, continue Glucerna, tube feeds at goal. Hyperglycemia of Critical Illness-continue sliding scale with Accu-Cheks. Stable discontinue sliding scale Hypernatremia and hypokalemia: Continue free water to 400 mL every 6 hours. Repeat BMP and magnesium improved, monitor. Diarrhea: Finished Levaquin, C. difficile checked but diarrhea resolved, cont Lactinex. No leukocytosis, doubt C. difficile. Hypokalemia-replaced. Monitor and replace as need. Prophylaxis - GI - Protonix - DVT - SCD Discharge Planning Change izaguirre cath every 30 days Discharge planning to SNF when arranged. SSI pending. Case management following. Discussed with the nurse Appears stable. Monitor Problem Qualifiers (1) ICH (intracerebral hemorrhage): Qualified Code: I61.0 - Nontraumatic subcortical hemorrhage of left cerebral hemisphere (2) Respiratory failure: Cielo Roa MD Oct 29, 2016 08:09
[2016-10-29] MEDS: LISINOPRIL 10 MG TAB PO SCH ×2 (09:15→21:49)
[2016-10-29] MEDS: PANTOPRAZOLE SOD 40 MG DELAYED RELEASE TAB PO SCH (09:15)
[2016-10-29] MEDS: FERROUS SULFATE 300 MG /5ML UDC PO SCH ×2 (09:15→21:49)
[2016-10-29] MEDS: NEOMYCIN/POLYMYXIN/BACITRACIN OINT 15 GM TUBE TOPICAL SCH ×2 (09:16→21:50)
[2016-10-29] MEDS: BENEPROTEIN POWDER 1 PACK G-TUBE SCH ×6 (09:16→17:25)
[2016-10-29] MEDS: QUEtiapine FUMARATE 25 MG TAB PO SCH ×2 (09:16→13:18)
[2016-10-29] MEDS: ARTIFICIAL TEARS OPTH SOLN 15 ML BTL EACH EYE SCH ×3 (09:16→17:25)
[2016-10-29] MEDS: amLODIPine BESYLATE 5 MG TAB PO SCH ×2 (09:16→21:48)
[2016-10-29] MEDS: SODIUM CHLORIDE 0.9% FLUSH 5 ML FLUSH IV FLUSH SCH ×2 (09:16→21:00)
[2016-10-29] MEDS: SODIUM CHLORIDE 0.9% FLUSH 5 ML FLUSH IVF SCH (09:16)
[2016-10-29] MEDS: METOPROLOL TARTRATE 50 MG TAB PO SCH ×2 (09:21→21:49)
[2016-10-29] MEDS: ENOXAPARIN SODIUM 40 MG/0.4 ML SYRINGE SQ SCH (13:18)
[2016-10-30] VITALS (8 sets, daily range): BP systolic 122–136; BP diastolic 75–83; PULSE 83–100; RESP 18–20; TEMP 98.1–98.7; O2SAT 86–100
[2016-10-30] MEDS: INSULIN NovoLIN REGULAR SUPPLEMENTAL SCALE SQ SCH ×6 (04:22→20:00)
[2016-10-30] MEDS: hydrALAZINE HCL 100 MG TAB PO SCH ×3 (06:16→23:03)
[2016-10-30] MEDS: SENNOSIDES 8.6 MG TAB GT SCH ×2 (06:16→17:21)
[2016-10-30] MEDS: cloNIDine HCL 0.1 MG TAB PO SCH ×3 (06:16→23:03)
[2016-10-30] MEDS: SODIUM CHLORIDE 0.9% FLUSH 5 ML FLUSH IV FLUSH SCH ×2 (08:54→21:00)
[2016-10-30] MEDS: METOPROLOL TARTRATE 50 MG TAB PO SCH ×2 (08:54→23:03)
[2016-10-30] MEDS: NEOMYCIN/POLYMYXIN/BACITRACIN OINT 15 GM TUBE TOPICAL SCH ×2 (08:54→23:04)
[2016-10-30] MEDS: ARTIFICIAL TEARS OPTH SOLN 15 ML BTL EACH EYE SCH ×3 (08:54→17:20)
[2016-10-30] MEDS: BENEPROTEIN POWDER 1 PACK G-TUBE SCH ×6 (08:54→17:20)
[2016-10-30] MEDS: QUEtiapine FUMARATE 25 MG TAB PO SCH ×2 (08:54→23:02)
[2016-10-30] MEDS: SODIUM CHLORIDE 0.9% FLUSH 5 ML FLUSH IVF SCH (08:54)
[2016-10-30] MEDS: amLODIPine BESYLATE 5 MG TAB PO SCH ×2 (08:54→23:03)
[2016-10-30] MEDS: LISINOPRIL 10 MG TAB PO SCH ×2 (08:54→23:02)
[2016-10-30] MEDS: PANTOPRAZOLE SOD 40 MG DELAYED RELEASE TAB PO SCH (08:54)
[2016-10-30] MEDS: FERROUS SULFATE 300 MG /5ML UDC PO SCH ×2 (08:54→23:03)
[2016-10-30] MEDS ORDERED: POTASSIUM CHLORIDE 20 MEQ PWD PACKET PEG ONE (12:00)
--- NOTE | 2016-10-30 12:00 | HHI.PR ---
Subjective Remarks Patient very lethargic Apparently agitated at times trying to pull trach. No fevers no reported diarrhea Objective Vitals Vital Signs Date Time Temp Pulse Resp B/P Pulse Ox O2 Delivery O2 Flow Rate FiO2 10/30/16 11:06 98 T-piece 10/30/16 09:30 Blow By 28 T-Piece Humidified 10/30/16 08:00 98.6 89 20 122/75 99 10/30/16 04:00 98.5 86 20 136/75 99 10/30/16 00:00 T-Piece 6.00 28 10/30/16 00:00 98.3 83 20 135/81 94 10/29/16 20:00 99.7 102 20 123/68 99 10/29/16 20:00 T-Piece 6.00 28 10/29/16 18:13 T-piece 6.00 28 10/29/16 16:50 97.9 83 20 108/67 100 10/29/16 13:23 96.8 80 20 114/72 100 10/29/16 11:58 100 T-piece 6.00 28 I/O 10/29/16 10/29/16 10/29/16 10/30/16 10/30/16 10/30/16 07:00 15:00 23:00 07:00 15:00 23:00 Output Total 900 ml 500 ml 300 ml 500 ml Balance -900 ml -500 ml -300 ml -500 ml Output Urine Total 900 ml 500 ml 300 ml 500 ml # Bowel Movements 1 0 0 Imaging Last Impressions Chest X-Ray 10/21/16 0600 Signed Impressions: Service Date/Time: Friday, October 21, 2016 03:45 - CONCLUSION: Clear lungs. Isael Gates Jr., MD Renal Ultrasound 10/18/16 0000 Signed Impressions: Service Date/Time: Tuesday, October 18, 2016 10:53 - CONCLUSION: Small left renal cyst. Otherwise, negative. Vargas Freitas MD FACR Gastrostomy Tube Placement 09/19/16 0000 Signed Impressions: Service Date/Time: Monday, September 19, 2016 16:01 - CONCLUSION: Uncomplicated gastrostomy tube placement as above. Chaitanya Rondon MD Head CT 09/17/16 0600 Signed Impressions: Service Date/Time: Saturday, September 17, 2016 04:14 - CONCLUSION: 1. Slightly evolving left basal ganglia hemorrhage with surrounding edema and mass effect similar to September 08. Right frontal ventriculostomy tube unchanged. Right ventricular size relatively stable. Bishop Fulton MD Head Magnetic Resonance Angiography 08/27/16 0000 Signed Impressions: Service Date/Time: Saturday, August 27, 2016 16:49 - CONCLUSION: Negative MRA of the brain. Vargas Freitas MD FACR Brain MRI 08/27/16 0000 Signed Impressions: Service Date/Time: Saturday, August 27, 2016 16:49 - CONCLUSION: 1. Large thalamic hemorrhage as described above. Extensive periventricular white matter changes are noted. There is compression of the third ventricle. Ventriculostomy is seen in the right lateral ventricle. 2. Hemorrhage does extend down the white matter tracts to the level of the right cerebral peduncle. Vargas Freitas MD FACR Objective Remarks GENERAL: 61 yo male, doesn't appear in acute distress, very lethargic. SKIN: Warm and dry. HEAD: Atraumatic. Normocephalic. EYES: Pupils equal and round. No scleral icterus. No injection or drainage. ENT: No nasal bleeding or discharge. Mucous membranes pink and moist. NECK: Trachea midline. No JVD. CARDIOVASCULAR: Regular rate and rhythm. RESPIRATORY: No accessory muscle use. Clear to auscultation. Breath sounds equal bilaterally. GASTROINTESTINAL: Abdomen soft, non-tender, nondistended. Hepatic and splenic margins not palpable. MUSCULOSKELETAL: Extremities without clubbing, cyanosis, or edema. No obvious deformities. NEUROLOGICAL: Very lethargic and difficult to arouse. Positive for right hemiparesis. PSYCHIATRIC: unable to asses due to lethargy. Procedures PEG Medications and IVs Current Medications Medications (Trade) Dose Ordered Sig/Mc Route Start Time Stop Time Status Last Admin (NS Flush) DAILY IVF 08/27/16 09:00 10/26/16 09:00 (NS Flush) UNSCH PRN IVF 08/26/16 18:45 09/21/16 10:14 (NS Flush) 2 ml UNSCH PRN IV FLUSH 08/26/16 18:45 (NS Flush) 2 ml BID IV FLUSH 08/26/16 21:00 10/30/16 08:54 (Tylenol) 650 mg Q6H PRN PO 08/26/16 18:45 10/26/16 04:42 (Tears Naturale Opth Soln) 1 drop TID EACH EYE 08/27/16 09:00 10/30/16 08:54 (Zofran Inj) 4 mg Q6H PRN IV 08/26/16 18:45 10/20/16 03:10 (Apresoline Inj) 10 mg Q30M PRN IV PUSH 08/26/16 19:30 10/19/16 08:25 (Beneprotein Powder) 1 pack TID G-TUBE 09/07/16 18:00 10/30/16 08:54 (Pepcid) 20 mg BID NG 09/11/16 21:00 Hold 10/17/16 20:14 (Lovenox Inj) 40 mg Q24H SQ 09/24/16 14:00 10/29/16 13:18 (Neosporin Oint) 1 applic Q12HR TOPICAL 09/27/16 10:00 10/30/16 08:54 (Lopressor) 100 mg Q12HR GT 10/02/16 21:00 Hold 10/17/16 20:14 (Senokot) 17.2 mg Q12H GT 10/02/16 18:00 10/30/16 06:16 (Free Water) 400 ml Q6H PEG 10/11/16 04:00 Hold 10/17/16 22:00 (Catapres) 0.2 mg TID G-TUBE 10/15/16 13:00 Hold 10/17/16 17:26 (Lactinex) 1 tab Q12HR PEG 10/15/16 21:00 Hold 10/17/16 20:17 (D50w (Vial) Inj) 25 ml UNSCH PRN IV PUSH 10/18/16 07:30 (Glucagon Inj) 1 mg UNSCH PRN OTHER 10/18/16 07:30 (NovoLIN R SUPPLEMENTAL SCALE) 1 Q4HR SQ 10/18/16 08:00 10/30/16 08:54 (Nitroglycerin 2% Oint) 2 inch Q6HR PRN TOPICAL 10/18/16 17:45 10/19/16 11:02 (Apresoline Inj) 10 mg Q1HR PRN IV PUSH 10/18/16 17:45 (Trandate Inj) 10 mg Q1HR PRN IV PUSH 10/18/16 17:45 10/19/16 10:25 (Norvasc) 5 mg BID PO 10/19/16 21:00 10/30/16 08:54 (Beneprotein Powder) 2 pack TID G-TUBE 10/19/16 18:00 10/30/16 08:54 (Apresoline) 100 mg Q8HR PO 10/20/16 22:00 10/30/16 06:16 (Prinivil) 20 mg Q12HR PO 10/20/16 21:00 10/30/16 08:54 (Catapres) 0.1 mg Q8HR PO 10/20/16 22:00 10/30/16 06:16 (Ferrous Sulfate Liq) 300 mg BID PO 10/23/16 21:00 10/30/16 08:54 (Protonix) 40 mg DAILY PO 10/24/16 09:00 10/30/16 08:54 (SEROquel) 25 mg BID@09,12 PO 10/28/16 09:00 10/30/16 08:54 (Haldol Inj) 2 mg Q6H PRN IM 10/27/16 17:00 10/27/16 17:45 (Lopressor) 50 mg Q12HR PO 10/29/16 09:00 10/30/16 08:54 Urinary Catheter: Yes Assessment to: Continue [place] insert reason: Prolonged Immobilization Vascular Central Line Catheter: Yes Assessment to: Continue Date of Insertion: Oct 18, 2016 Line: Central Venous Catheter Side: Right Location: Internal, Jugular A/P Problem List: (1) ICH (intracerebral hemorrhage) ICD Code: I61.9 Status: Acute (2) Hypertensive emergency ICD Code: I16.1 Status: Resolved (3) Hypokalemia ICD Code: E87.6 Status: Resolved (4) Respiratory failure ICD Code: J96.90 Status: Chronic (5) Gabrielle-Stewart tear ICD Code: K22.6 Status: Acute Assessment and Plan 61-year-old male with left basal ganglia hemorrhage, intraventricular extension test post placement of ventriculostomy drain. Left basal ganglia intraparenchymal hemorrhage with encephalopathy -s/p Right frontal ventriculostomy placement 08/26 with neurosurgery, CT head revealed left basal ganglia intraparenchymal hemorrhage 3.42 cm with extension to lateral ventricle, midline shift 5 mm to the right. Goal systolic blood pressure less than 140. EEG 08/30: generalized slowing, no seizure activity. Drain removed 09/17/16. Continue blood pressure control. Hypertensive emergency, now controlled -Initially managed with Cardizem drip. Resolved. -Continue Norvasc 10 mg daily, hydralazine to 100 mg every 6 hours, lisinopril 20 po bid, lopressor 100 bid. catapres 0.3 bid. Controlled. Acute hypoxic and hypercarbic respiratory failure secondary to Staphylococcus pneumonia- tracheostomy in place, continue T piece. Pulmonary following, chest x-ray from 09/22/16 shows improvement, still shows atelectasis. Continue pulmonary toilet, s/p Levaquin October 06. Pulmonary following. Monitor. Downgrade trach size per pulm Pulm following Left pinna cellulitis: Improving. Topical antibiotic. Patient already on oral Levaquin. Wound care. Pressure offloading Escherichia coli UTI: s/p treatment Failure to thrive, protein energy malnutrition: status post PEG tube placement by IR 09/19/16, continue Glucerna, tube feeds at goal. Hyperglycemia of Critical Illness-continue sliding scale with Accu-Cheks. Stable discontinue sliding scale Hypernatremia and hypokalemia: Hypernatremia resolved with free water administration. Continue free water to 400 mL every 6 hours. Repeat BMP and magnesium improved, monitor. Diarrhea: Finished Levaquin, C. difficile checked but diarrhea resolved, cont Lactinex. No leukocytosis, doubt C. difficile. Hypokalemia- Much improved, level 3.5 today. Continue to monitor BMP and replace as needed. I will give 20 meq orally once patient more awake.\ Encephalopathy: Likely Toxic due to Seroquel being administered to him for agitation. I will give Seroquel at bedtime and instructed the nurse to hold for sedation. Agitation: Continue Seroquel which will be given on at bedtime. Continue with Haldol when necessary since patient is known to pull his trach. Prophylaxis - GI - Protonix - DVT - SCD Discharge Planning Continue to monitor in the medical floor. SSI pending. Problem Qualifiers (1) ICH (intracerebral hemorrhage): Qualified Code: I61.0 - Nontraumatic subcortical hemorrhage of left cerebral hemisphere (2) Respiratory failure: Trent Garcia MD Oct 30, 2016 12:00
[2016-10-30] MEDS: ENOXAPARIN SODIUM 40 MG/0.4 ML SYRINGE SQ SCH (13:41)
[2016-10-31] VITALS (8 sets, daily range): BP systolic 94–177; BP diastolic 59–102; PULSE 77–98; RESP 18–20; TEMP 96.1–99.5; O2SAT 95–99
[2016-10-31] MEDS: INSULIN NovoLIN REGULAR SUPPLEMENTAL SCALE SQ SCH ×6 (04:00→20:00)
[2016-10-31] MEDS: hydrALAZINE HCL 100 MG TAB PO SCH ×3 (06:00→21:56)
[2016-10-31] MEDS: cloNIDine HCL 0.1 MG TAB PO SCH ×3 (06:00→21:56)
[2016-10-31] MEDS: SENNOSIDES 8.6 MG TAB GT SCH ×2 (06:41→18:00)
[2016-10-31] MEDS: SODIUM CHLORIDE 0.9% FLUSH 5 ML FLUSH IVF SCH (08:19)
[2016-10-31] MEDS: BENEPROTEIN POWDER 1 PACK G-TUBE SCH ×6 (08:19→18:00)
[2016-10-31] MEDS: SODIUM CHLORIDE 0.9% FLUSH 5 ML FLUSH IV FLUSH SCH ×2 (08:19→21:00)
[2016-10-31] MEDS: METOPROLOL TARTRATE 50 MG TAB PO SCH ×2 (08:19→21:56)
[2016-10-31] MEDS: LISINOPRIL 10 MG TAB PO SCH ×2 (08:20→21:56)
[2016-10-31] MEDS: amLODIPine BESYLATE 5 MG TAB PO SCH ×2 (08:20→21:56)
[2016-10-31] MEDS: FERROUS SULFATE 300 MG /5ML UDC PO SCH ×2 (08:22→13:30)
[2016-10-31] MEDS: PANTOPRAZOLE SOD 40 MG DELAYED RELEASE TAB PO SCH (08:22)
[2016-10-31] MEDS: NEOMYCIN/POLYMYXIN/BACITRACIN OINT 15 GM TUBE TOPICAL SCH ×2 (08:22→21:56)
[2016-10-31] MEDS: ARTIFICIAL TEARS OPTH SOLN 15 ML BTL EACH EYE SCH ×3 (08:23→18:22)
[2016-10-31 08:38] LABS: AUTOMATED NEUTROPHIL # 3.9 TH/MM3 (1.8-7.7); BASOPHIL % 0.6 % (0.0-2.0); EOSINOPHIL # 0.2 TH/MM3 (0-0.4); EOSINOPHIL % 3.1 % (0.0-4.0); HEMATOCRIT 29.6 % (39.0-51.0); HEMO FLAGS DIFF FINAL; LYMPHOCYTE # 1.2 TH/MM3 (1.0-4.8); MEAN CELL VOLUME 90.5 FL (80.0-100.0); MEAN CORPUSCULAR HEMOGLOBIN 31.2 PG (27.0-34.0); MEAN CORPUSCULAR HGB CONC 34.5 % (32.0-36.0); MONO % 9.1 % (0.0-8.0); NEUT % 67.2 % (16.0-70.0); PLATELET COUNT 220 TH/MM3 (150-450); RED BLOOD COUNT 3.27 MIL/MM3 (4.50-5.90); RED CELL DISTRIBUTION WIDTH 13.9 % (11.6-17.2); WHITE BLOOD COUNT 5.8 TH/MM3 (4.0-11.0)
[2016-10-31 09:07] LABS: ALKALINE PHOSPHATASE 73 U/L (45-117); ALT (GPT) 45 U/L (12-78); ANION GAP 4 MEQ/L (5-15); AST (GOT) 20 U/L (15-37); BICARBONATE 33.5 MEQ/L (21.0-32.0); BLOOD UREA NITROGEN 35 MG/DL (7-18); CHLORIDE 109 MEQ/L (98-107); GLOMERULAR FILTRATION RATE 90 ML/MIN (>89); MAGNESIUM 2.7 MG/DL (1.5-2.5); POTASSIUM 3.8 MEQ/L (3.5-5.1); SODIUM (NA) 146 MEQ/L (136-145); TOTAL BILIRUBIN ADULT 0.2 MG/DL (0.2-1.0)
[2016-10-31] MEDS: ENOXAPARIN SODIUM 40 MG/0.4 ML SYRINGE SQ SCH (13:30)
[2016-10-31] MEDS ORDERED: methylPREDNISolone SOD SUCC 125 MG/2 ML VIAL IV PUSH ONE (18:00)
--- NOTE | 2016-10-31 18:37 | HHI.PR ---
Subjective Remarks Patient seems to be sob as per RN patient has lump on right side of abdomen patient is nonverbal able to answer yes and no to questions stable vital signs Objective Vitals Vital Signs Date Time Temp Pulse Resp B/P Pulse Ox O2 Delivery O2 Flow Rate FiO2 10/31/16 16:00 99.5 97 20 124/89 96 10/31/16 12:00 98.2 91 20 137/78 97 10/31/16 08:57 98 21 10/31/16 08:00 98.0 78 18 114/67 99 10/31/16 07:00 T-Piece 6.00 28 Humidified 10/31/16 06:42 77 19 94/59 99 10/31/16 04:00 96.1 81 20 105/61 99 10/31/16 00:00 97.1 95 20 155/89 99 10/30/16 23:00 99 T-Piece 28 Humidified 10/30/16 20:04 98 T-Piece 28 Humidified 10/30/16 20:00 98.1 86 20 127/83 86 10/30/16 18:06 100 T-piece 6.00 28 I/O 10/30/16 10/30/16 10/30/16 10/31/16 10/31/16 10/31/16 07:00 15:00 23:00 07:00 15:00 23:00 Intake Total 60 ml 650 ml 730 ml 523 ml Output Total 500 ml 350 ml 300 ml 300 ml 350 ml Balance -440 ml 300 ml -300 ml 430 ml 523 ml -350 ml Tube Feeding 60 ml 480 ml 610 ml 523 ml Tube Irrigant 170 ml Other 120 ml Output Urine Total 500 ml 350 ml 300 ml 300 ml 350 ml Stool Total 0 ml # Bowel Movements 0 0 0 Result Diagram: 10/31/16 0803 10/31/16 0803 Imaging Last Impressions Chest X-Ray 10/21/16 0600 Signed Impressions: Service Date/Time: Friday, October 21, 2016 03:45 - CONCLUSION: Clear lungs. Isael Gates Jr., MD Renal Ultrasound 10/18/16 0000 Signed Impressions: Service Date/Time: Tuesday, October 18, 2016 10:53 - CONCLUSION: Small left renal cyst. Otherwise, negative. Vargas Freitas MD FACR Gastrostomy Tube Placement 09/19/16 0000 Signed Impressions: Service Date/Time: Monday, September 19, 2016 16:01 - CONCLUSION: Uncomplicated gastrostomy tube placement as above. Chaitanya Rondon MD Head CT 09/17/16 0600 Signed Impressions: Service Date/Time: Saturday, September 17, 2016 04:14 - CONCLUSION: 1. Slightly evolving left basal ganglia hemorrhage with surrounding edema and mass effect similar to September 08. Right frontal ventriculostomy tube unchanged. Right ventricular size relatively stable. Bishop Fulton MD Head Magnetic Resonance Angiography 08/27/16 0000 Signed Impressions: Service Date/Time: Saturday, August 27, 2016 16:49 - CONCLUSION: Negative MRA of the brain. Vargas Freitas MD FACR Brain MRI 08/27/16 0000 Signed Impressions: Service Date/Time: Saturday, August 27, 2016 16:49 - CONCLUSION: 1. Large thalamic hemorrhage as described above. Extensive periventricular white matter changes are noted. There is compression of the third ventricle. Ventriculostomy is seen in the right lateral ventricle. 2. Hemorrhage does extend down the white matter tracts to the level of the right cerebral peduncle. Vargas Freitas MD FACR Objective Remarks GENERAL: 61 yo male, doesn't appear in acute distress, very lethargic. SKIN: Warm and dry. HEAD: Atraumatic. Normocephalic. EYES: Pupils equal and round. No scleral icterus. No injection or drainage. ENT: No nasal bleeding or discharge. Mucous membranes pink and moist. NECK: Trachea midline. No JVD. CARDIOVASCULAR: Regular rate and rhythm. RESPIRATORY: No accessory muscle use. Clear to auscultation. Breath sounds equal bilaterally. GASTROINTESTINAL: Abdomen soft, non-tender, nondistended. Hepatic and splenic margins not palpable. MUSCULOSKELETAL: Extremities without clubbing, cyanosis, or edema. No obvious deformities. NEUROLOGICAL: Very lethargic and difficult to arouse. Positive for right hemiparesis. PSYCHIATRIC: unable to asses due to lethargy. Procedures PEG Medications and IVs Current Medications Medications (Trade) Dose Ordered Sig/Mc Route Start Time Stop Time Status Last Admin (NS Flush) DAILY IVF 08/27/16 09:00 10/26/16 09:00 (NS Flush) UNSCH PRN IVF 08/26/16 18:45 09/21/16 10:14 (NS Flush) 2 ml UNSCH PRN IV FLUSH 08/26/16 18:45 (NS Flush) 2 ml BID IV FLUSH 08/26/16 21:00 10/30/16 21:00 (Tylenol) 650 mg Q6H PRN PO 08/26/16 18:45 10/26/16 04:42 (Tears Naturale Opth Soln) 1 drop TID EACH EYE 08/27/16 09:00 10/31/16 13:00 (Zofran Inj) 4 mg Q6H PRN IV 08/26/16 18:45 10/20/16 03:10 (Apresoline Inj) 10 mg Q30M PRN IV PUSH 08/26/16 19:30 10/19/16 08:25 (Beneprotein Powder) 1 pack TID G-TUBE 09/07/16 18:00 10/31/16 13:00 (Pepcid) 20 mg BID NG 09/11/16 21:00 Hold 10/17/16 20:14 (Lovenox Inj) 40 mg Q24H SQ 09/24/16 14:00 10/31/16 13:30 (Neosporin Oint) 1 applic Q12HR TOPICAL 09/27/16 10:00 10/31/16 08:22 (Lopressor) 100 mg Q12HR GT 10/02/16 21:00 Hold 10/17/16 20:14 (Senokot) 17.2 mg Q12H GT 10/02/16 18:00 10/31/16 06:41 (Free Water) 400 ml Q6H PEG 10/11/16 04:00 Hold 10/17/16 22:00 (Catapres) 0.2 mg TID G-TUBE 10/15/16 13:00 Hold 10/17/16 17:26 (Lactinex) 1 tab Q12HR PEG 10/15/16 21:00 Hold 10/17/16 20:17 (D50w (Vial) Inj) 25 ml UNSCH PRN IV PUSH 10/18/16 07:30 (Glucagon Inj) 1 mg UNSCH PRN OTHER 10/18/16 07:30 (NovoLIN R SUPPLEMENTAL SCALE) 1 Q4HR SQ 10/18/16 08:00 10/30/16 08:54 (Nitroglycerin 2% Oint) 2 inch Q6HR PRN TOPICAL 10/18/16 17:45 10/19/16 11:02 (Apresoline Inj) 10 mg Q1HR PRN IV PUSH 10/18/16 17:45 (Trandate Inj) 10 mg Q1HR PRN IV PUSH 10/18/16 17:45 10/19/16 10:25 (Norvasc) 5 mg BID PO 10/19/16 21:00 10/30/16 23:03 (Beneprotein Powder) 2 pack TID G-TUBE 10/19/16 18:00 10/30/16 17:20 (Apresoline) 100 mg Q8HR PO 10/20/16 22:00 10/31/16 13:30 (Prinivil) 20 mg Q12HR PO 10/20/16 21:00 10/30/16 23:02 (Catapres) 0.1 mg Q8HR PO 10/20/16 22:00 10/31/16 13:30 (Ferrous Sulfate Liq) 300 mg BID PO 10/23/16 21:00 10/31/16 13:30 (Protonix) 40 mg DAILY PO 10/24/16 09:00 10/30/16 08:54 (Haldol Inj) 2 mg Q6H PRN IM 10/27/16 17:00 10/27/16 17:45 (Lopressor) 50 mg Q12HR PO 10/29/16 09:00 10/30/16 23:03 (SEROquel) 25 mg HS PO 10/30/16 21:00 10/30/16 23:02 Urinary Catheter: Yes Assessment to: Remove Date of Insertion: Oct 18, 2016 Line: Central Venous Catheter Side: Right Location: Internal, Jugular A/P Problem List: (1) ICH (intracerebral hemorrhage) ICD Code: I61.9 Status: Acute (2) Hypertensive emergency ICD Code: I16.1 Status: Resolved (3) Hypokalemia ICD Code: E87.6 Status: Resolved (4) Respiratory failure ICD Code: J96.90 Status: Chronic (5) Gabrielle-Stewart tear ICD Code: K22.6 Status: Acute Assessment and Plan 61-year-old male with left basal ganglia hemorrhage, intraventricular extension test post placement of ventriculostomy drain. Left basal ganglia intraparenchymal hemorrhage with encephalopathy -s/p Right frontal ventriculostomy placement 08/26 with neurosurgery, CT head revealed left basal ganglia intraparenchymal hemorrhage 3.42 cm with extension to lateral ventricle, midline shift 5 mm to the right. Goal systolic blood pressure less than 140. EEG 08/30: generalized slowing, no seizure activity. Drain removed 09/17/16. Continue blood pressure control. Hypertensive emergency, now controlled -Initially managed with Cardizem drip. Resolved. -Continue Norvasc 10 mg daily, hydralazine to 100 mg every 6 hours, lisinopril 20 po bid, lopressor 100 bid. catapres 0.3 bid. Controlled. Acute hypoxic and hypercarbic respiratory failure secondary to Staphylococcus pneumonia- tracheostomy in place, continue T piece. Pulmonary following, chest x-ray from 09/22/16 shows improvement, still shows atelectasis. Continue pulmonary toilet, s/p Levaquin October 06. Pulmonary following. Monitor. Downgrade trach size per pulm Pulm following Left pinna cellulitis: Improving. Topical antibiotic. Patient already on oral Levaquin. Wound care. Pressure offloading Escherichia coli UTI: s/p treatment Failure to thrive, protein energy malnutrition: status post PEG tube placement by IR 09/19/16, continue Glucerna, tube feeds at goal. Hyperglycemia of Critical Illness-continue sliding scale with Accu-Cheks. Stable discontinue sliding scale Hypernatremia and hypokalemia: Hypernatremia resolved with free water administration. Continue free water to 400 mL every 6 hours. Repeat BMP and magnesium improved, monitor. Diarrhea: Finished Levaquin, C. difficile checked but diarrhea resolved, cont Lactinex. No leukocytosis, doubt C. difficile. Hypokalemia- Much improved, level 3.5 today. Continue to monitor BMP and replace as needed. I will give 20 meq orally once patient more awake.\ Encephalopathy: Likely Toxic due to Seroquel being administered to him for agitation. I will give Seroquel at bedtime and instructed the nurse to hold for sedation. Agitation: Continue Seroquel which will be given on at bedtime. Continue with Haldol when necessary since patient is known to pull his trach. Respiratory Distress: Possibly secondary to bronchial hyperreactivity. I will order CXR stat and give IV Solumedrol 125 mg IV once. Right Flank lump: Will check ultrasound of soft tissue to better asses. Possible lipoma. Prophylaxis - GI - Protonix - DVT - SCD Discharge Planning Continue to monitor in the medical floor. SSI pending. Problem Qualifiers (1) ICH (intracerebral hemorrhage): Qualified Code: I61.0 - Nontraumatic subcortical hemorrhage of left cerebral hemisphere (2) Respiratory failure: Trent Garcia MD Oct 31, 2016 18:37
--- NOTE | 2016-10-31 18:50 | RADRPT ---
EXAM DATE/TIME: 10/31/2016 18:15 [facility] COMPARISON: CHEST SINGLE AP, October 21, 2016, 3:45. INDICATIONS : Short of breath. MEDICAL HISTORY : None. SURGICAL HISTORY : None. ENCOUNTER: Subsequent ACUITY: 2 months PAIN SCORE: Non-responsive. LOCATION: Bilateral chest FINDINGS: Tracheostomy is present in good position. Lungs are focally clear. No effusion suspected. Accounting for rotation, cardiac contours are grossly stable. CONCLUSION: No acute disease Rakesh Strauss MD on October 31, 2016 at 18:48 Board Certified Radiologist. This report was verified electronically.
[2016-10-31] MEDS: QUEtiapine FUMARATE 25 MG TAB PO SCH (21:56)
--- NOTE | 2016-10-31 23:10 | RADRPT ---
EXAM DATE/TIME: 10/31/2016 20:22 [facility] COMPARISON: No previous studies available for comparison. INDICATIONS : Palpable lump on right flank. MEDICAL HISTORY : Hypertension. Intracerebral hemorrhage. 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 SURGICAL HISTORY : Panendoscopy. Tracheostomy. G-tube placement. ENCOUNTER: Initial ACUITY: 1 day PAIN SCORE: 0/10 LOCATION: Right flank AREA EVALUATED: Right lateral flank. FINDINGS: There is a large solid hypoechoic mass with some internal vascularity at the site of palpable abnorma lity measuring 15 x 10 CM. The appearance is nonspecific by ultrasound. CT or MRI is recommended to f urther evaluate this. This does appear to be in a subcutaneous location. No fluid is present. Hematom a as well as neoplasm would be considered. CONCLUSION: 1. Solid mass at the site of the palpable abnormality. Cross-sectional imaging could be performed for further evaluation if clinically indicated. Chaitanya Rondon MD on October 31, 2016 at 23:05 Board Certified Radiologist. This report was verified electronically.
[2016-11-01] VITALS (10 sets, daily range): BP systolic 70–147; BP diastolic 51–83; PULSE 71–106; RESP 16–20; TEMP 96.4–97.9; O2SAT 94–98
[2016-11-01] MEDS: INSULIN NovoLIN REGULAR SUPPLEMENTAL SCALE SQ SCH ×7 (00:28→23:32)
[2016-11-01] MEDS: SENNOSIDES 8.6 MG TAB GT SCH ×2 (06:13→18:00)
[2016-11-01] MEDS: hydrALAZINE HCL 100 MG TAB PO SCH ×3 (06:13→22:00)
[2016-11-01] MEDS: cloNIDine HCL 0.1 MG TAB PO SCH ×3 (06:14→22:00)
[2016-11-01] MEDS: ARTIFICIAL TEARS OPTH SOLN 15 ML BTL EACH EYE SCH ×3 (09:00→18:05)
[2016-11-01] MEDS: SODIUM CHLORIDE 0.9% FLUSH 5 ML FLUSH IVF SCH (09:00)
[2016-11-01] MEDS: METOPROLOL TARTRATE 50 MG TAB PO SCH ×2 (09:01→21:00)
[2016-11-01] MEDS: amLODIPine BESYLATE 5 MG TAB PO SCH ×2 (09:01→21:00)
[2016-11-01] MEDS: LISINOPRIL 10 MG TAB PO SCH ×2 (09:01→21:00)
[2016-11-01] MEDS: PANTOPRAZOLE SOD 40 MG DELAYED RELEASE TAB PO SCH (09:01)
[2016-11-01] MEDS: FERROUS SULFATE 300 MG /5ML UDC PO SCH ×2 (09:01→23:32)
[2016-11-01] MEDS: NEOMYCIN/POLYMYXIN/BACITRACIN OINT 15 GM TUBE TOPICAL SCH ×2 (09:02→21:00)
[2016-11-01] MEDS: BENEPROTEIN POWDER 1 PACK G-TUBE SCH ×6 (09:03→18:00)
[2016-11-01] MEDS: SODIUM CHLORIDE 0.9% FLUSH 5 ML FLUSH IV FLUSH SCH ×2 (09:03→21:00)
[2016-11-01] MEDS: ENOXAPARIN SODIUM 40 MG/0.4 ML SYRINGE SQ SCH (13:57)
--- NOTE | 2016-11-01 17:49 | HHI.PR ---
Subjective Remarks 61 YOWM with ICH,RF, Trach Today trach fell off On RA No sob Objective Vital Signs Vital Signs Date Time Temp Pulse Resp B/P Pulse Ox O2 Delivery O2 Flow Rate FiO2 11/01/16 16:00 97.4 71 18 136/74 97 11/01/16 12:00 96.8 106 20 146/82 97 11/01/16 11:41 98 T-piece 21 11/01/16 08:00 97.9 101 19 143/83 96 11/01/16 07:35 Room Air 11/01/16 04:00 96.4 84 20 147/82 96 11/01/16 00:00 97.1 84 20 143/75 98 10/31/16 20:00 98.7 98 19 177/102 95 10/31/16 19:00 95 Room Air I/O 10/31/16 10/31/16 10/31/16 11/01/16 11/01/16 11/01/16 07:00 15:00 23:00 07:00 15:00 23:00 Intake Total 730 ml 523 ml 813 ml 420 ml Output Total 300 ml 650 ml Balance 430 ml 523 ml -650 ml 813 ml 420 ml Tube Feeding 610 ml 523 ml 723 ml 420 ml Tube Irrigant 90 ml Other 120 ml Output Urine Total 300 ml 650 ml Stool Total 0 ml # Voids 1 0 2 # Bowel Movements 0 1 0 Result Diagram: 10/31/16 0803 10/31/16 0803 Objective Remarks GENERAL: MBMN male, NAD SKIN: Warm and dry. HEAD: Normocephalic. EYES: No scleral icterus. No injection or drainage. NECK: Supple, trachea midline. No JVD or lymphadenopathy. Trach wound healing CARDIOVASCULAR: Regular rate and rhythm without murmurs, gallops, or rubs. RESPIRATORY: Breath sounds equal bilaterally. No accessory muscle use. GASTROINTESTINAL: Abdomen soft, non-tender, nondistended. MUSCULOSKELETAL: No cyanosis, or edema. BACK: Nontender without obvious deformity. No CVA tenderness. A/P Assessment and Plan S/P Trach removal, fell off HTN Atelactesis ICH PLAN: Stable on RA monitor BP TF Romario Taylor MD Nov 01, 2016 17:49
--- NOTE | 2016-11-01 18:18 | HHI.PR ---
Subjective Remarks Today trach fell off stable on room air nonverbal stable vital signs As per RN patient was playing with PEG and there was some blood. Objective Vitals Vital Signs Date Time Temp Pulse Resp B/P Pulse Ox O2 Delivery O2 Flow Rate FiO2 11/01/16 16:00 97.4 71 18 136/74 97 11/01/16 12:00 96.8 106 20 146/82 97 11/01/16 11:41 98 T-piece 21 11/01/16 08:00 97.9 101 19 143/83 96 11/01/16 07:35 Room Air 11/01/16 04:00 96.4 84 20 147/82 96 11/01/16 00:00 97.1 84 20 143/75 98 10/31/16 20:00 98.7 98 19 177/102 95 10/31/16 19:00 95 Room Air I/O 10/31/16 10/31/16 10/31/16 11/01/16 11/01/16 11/01/16 07:00 15:00 23:00 07:00 15:00 23:00 Intake Total 730 ml 523 ml 813 ml 420 ml Output Total 300 ml 650 ml Balance 430 ml 523 ml -650 ml 813 ml 420 ml Tube Feeding 610 ml 523 ml 723 ml 420 ml Tube Irrigant 90 ml Other 120 ml Output Urine Total 300 ml 650 ml Stool Total 0 ml # Voids 1 0 2 # Bowel Movements 0 1 0 Result Diagram: 10/31/16 0803 10/31/16 0803 Imaging Last Impressions Soft Tissue Ultrasound 10/31/16 0000 Signed Impressions: Service Date/Time: Monday, October 31, 2016 20:22 - CONCLUSION: 1. Solid mass at the site of the palpable abnormality. Cross-sectional imaging could be performed for further evaluation if clinically indicated. Chaitanya Rondon MD Chest X-Ray 10/31/16 0000 Signed Impressions: Service Date/Time: Monday, October 31, 2016 18:15 - CONCLUSION: No acute disease Rakesh Strauss MD Renal Ultrasound 10/18/16 0000 Signed Impressions: Service Date/Time: Tuesday, October 18, 2016 10:53 - CONCLUSION: Small left renal cyst. Otherwise, negative. Vargas Freitas MD FACR Gastrostomy Tube Placement 09/19/16 0000 Signed Impressions: Service Date/Time: Monday, September 19, 2016 16:01 - CONCLUSION: Uncomplicated gastrostomy tube placement as above. Chaitanya Rondon MD Head CT 09/17/16 0600 Signed Impressions: Service Date/Time: Saturday, September 17, 2016 04:14 - CONCLUSION: 1. Slightly evolving left basal ganglia hemorrhage with surrounding edema and mass effect similar to September 08. Right frontal ventriculostomy tube unchanged. Right ventricular size relatively stable. Bishop Fulton MD Head Magnetic Resonance Angiography 08/27/16 0000 Signed Impressions: Service Date/Time: Saturday, August 27, 2016 16:49 - CONCLUSION: Negative MRA of the brain. Vargas Freitas MD FACR Brain MRI 08/27/16 0000 Signed Impressions: Service Date/Time: Saturday, August 27, 2016 16:49 - CONCLUSION: 1. Large thalamic hemorrhage as described above. Extensive periventricular white matter changes are noted. There is compression of the third ventricle. Ventriculostomy is seen in the right lateral ventricle. 2. Hemorrhage does extend down the white matter tracts to the level of the right cerebral peduncle. Vargas Freitas MD FACR Objective Remarks GENERAL: 61 yo male, doesn't appear in acute distress, awake and alert. HEAD: Atraumatic. Normocephalic. EYES: Pupils equal and round. No scleral icterus. No injection or drainage. ENT: No nasal bleeding or discharge. Mucous membranes pink and moist. NECK: Trachea midline. No JVD. CARDIOVASCULAR: Regular rate and rhythm. RESPIRATORY: No accessory muscle use. Clear to auscultation. Breath sounds equal bilaterally. GASTROINTESTINAL: Abdomen soft, non-tender, nondistended. Hepatic and splenic margins not palpable. PEG has some blood around orifice. MUSCULOSKELETAL: Extremities without clubbing, cyanosis, or edema. No obvious deformities. NEUROLOGICAL: Very lethargic and difficult to arouse. Positive for right hemiparesis. PSYCHIATRIC: unable to asses due to lethargy. Procedures PEG Medications and IVs Current Medications Medications (Trade) Dose Ordered Sig/Mc Route Start Time Stop Time Status Last Admin (NS Flush) DAILY IVF 08/27/16 09:00 10/26/16 09:00 (NS Flush) UNSCH PRN IVF 08/26/16 18:45 09/21/16 10:14 (NS Flush) 2 ml UNSCH PRN IV FLUSH 08/26/16 18:45 (NS Flush) 2 ml BID IV FLUSH 08/26/16 21:00 11/01/16 09:03 (Tylenol) 650 mg Q6H PRN PO 08/26/16 18:45 10/26/16 04:42 (Tears Naturale Opth Soln) 1 drop TID EACH EYE 08/27/16 09:00 11/01/16 18:05 (Zofran Inj) 4 mg Q6H PRN IV 08/26/16 18:45 10/20/16 03:10 (Apresoline Inj) 10 mg Q30M PRN IV PUSH 08/26/16 19:30 10/19/16 08:25 (Beneprotein Powder) 1 pack TID G-TUBE 09/07/16 18:00 11/01/16 13:57 (Pepcid) 20 mg BID NG 09/11/16 21:00 Hold 10/17/16 20:14 (Lovenox Inj) 40 mg Q24H SQ 09/24/16 14:00 11/01/16 13:57 (Neosporin Oint) 1 applic Q12HR TOPICAL 09/27/16 10:00 11/01/16 09:02 (Lopressor) 100 mg Q12HR GT 10/02/16 21:00 Hold 10/17/16 20:14 (Senokot) 17.2 mg Q12H GT 10/02/16 18:00 11/01/16 06:13 (Free Water) 400 ml Q6H PEG 10/11/16 04:00 Hold 10/17/16 22:00 (Catapres) 0.2 mg TID G-TUBE 10/15/16 13:00 Hold 10/17/16 17:26 (Lactinex) 1 tab Q12HR PEG 10/15/16 21:00 Hold 10/17/16 20:17 (D50w (Vial) Inj) 25 ml UNSCH PRN IV PUSH 10/18/16 07:30 (Glucagon Inj) 1 mg UNSCH PRN OTHER 10/18/16 07:30 (NovoLIN R SUPPLEMENTAL SCALE) 1 Q4HR SQ 10/18/16 08:00 11/01/16 09:00 (Nitroglycerin 2% Oint) 2 inch Q6HR PRN TOPICAL 10/18/16 17:45 10/19/16 11:02 (Apresoline Inj) 10 mg Q1HR PRN IV PUSH 10/18/16 17:45 (Trandate Inj) 10 mg Q1HR PRN IV PUSH 10/18/16 17:45 10/19/16 10:25 (Norvasc) 5 mg BID PO 10/19/16 21:00 11/01/16 09:01 (Beneprotein Powder) 2 pack TID G-TUBE 10/19/16 18:00 11/01/16 13:57 (Apresoline) 100 mg Q8HR PO 10/20/16 22:00 11/01/16 13:53 (Prinivil) 20 mg Q12HR PO 10/20/16 21:00 11/01/16 09:01 (Catapres) 0.1 mg Q8HR PO 10/20/16 22:00 11/01/16 13:53 (Ferrous Sulfate Liq) 300 mg BID PO 10/23/16 21:00 11/01/16 09:01 (Protonix) 40 mg DAILY PO 10/24/16 09:00 11/01/16 09:01 (Haldol Inj) 2 mg Q6H PRN IM 10/27/16 17:00 10/27/16 17:45 (Lopressor) 50 mg Q12HR PO 10/29/16 09:00 11/01/16 09:01 (SEROquel) 25 mg HS PO 10/30/16 21:00 10/31/16 21:56 Urinary Catheter: Yes Assessment to: Remove Date of Insertion: Oct 18, 2016 Line: Central Venous Catheter Side: Right Location: Internal, Jugular A/P Problem List: (1) ICH (intracerebral hemorrhage) ICD Code: I61.9 Status: Acute (2) Hypertensive emergency ICD Code: I16.1 Status: Resolved (3) Hypokalemia ICD Code: E87.6 Status: Resolved (4) Respiratory failure ICD Code: J96.90 Status: Chronic (5) Gabrielle-Stewart tear ICD Code: K22.6 Status: Acute Assessment and Plan 61-year-old male with left basal ganglia hemorrhage, intraventricular extension test post placement of ventriculostomy drain. Left basal ganglia intraparenchymal hemorrhage with encephalopathy -s/p Right frontal ventriculostomy placement 08/26 with neurosurgery, CT head revealed left basal ganglia intraparenchymal hemorrhage 3.42 cm with extension to lateral ventricle, midline shift 5 mm to the right. Goal systolic blood pressure less than 140. EEG 08/30: generalized slowing, no seizure activity. Drain removed 09/17/16. Continue blood pressure control. Hypertensive emergency, now controlled -Initially managed with Cardizem drip. Resolved. -Continue Norvasc 10 mg daily, hydralazine to 100 mg every 6 hours, lisinopril 20 po bid, lopressor 100 bid. catapres 0.3 bid. Controlled. Acute hypoxic and hypercarbic respiratory failure secondary to Staphylococcus pneumonia- tracheostomy in place, continue T piece. Pulmonary following, chest x-ray from 09/22/16 shows improvement, still shows atelectasis. Continue pulmonary toilet, s/p Levaquin October 06. Pulmonary following. Monitor. Patient pulled his trach out. Patient stable room air. Okay to leave out as per pulmonology. Continue to follow recommendations. Left pinna cellulitis: Improving. Topical antibiotic. Patient already on oral Levaquin. Wound care. Pressure offloading Escherichia coli UTI: s/p treatment Failure to thrive, protein energy malnutrition: status post PEG tube placement by IR 09/19/16, continue Glucerna, tube feeds at goal. Hyperglycemia of Critical Illness-continue sliding scale with Accu-Cheks. Stable discontinue sliding scale Hypernatremia and hypokalemia: Hypernatremia resolved with free water administration. Continue free water to 400 mL every 6 hours. Repeat BMP and magnesium improved, monitor. Diarrhea: Finished Levaquin, C. difficile checked but diarrhea resolved, cont Lactinex. No leukocytosis, doubt C. difficile. Hypokalemia- Much improved, level 3.5 today. Continue to monitor BMP and replace as needed. I will give 20 meq orally once patient more awake.\ Encephalopathy: Likely Toxic due to Seroquel being administered to him for agitation. I will give Seroquel at bedtime and instructed the nurse to hold for sedation. Agitation: Patient very agitated today for trach and try to pull Kern catheter. Removal catheter. Pulmonology okay to leave patient without trach. I will place the patient on Seroquel 25 mg by mouth twice a day. Consider psych consultation if there is no improvement. Respiratory Distress: Likely secondary to bronchial hyperactivity. Resolved after administration of IV Solu-Medrol 125 mg IV 1. Right Flank lump: Ultrasound soft tissue showed a solid mass at the site of palpable abnormality. CT of the abdomen could possibly be done once patient less agitated. Will order abdominal x-ray to assess PICC placement since patient was pulling it earlier. Hypernatremia: Likely secondary to dehydration. I will start the patient on free water. Prophylaxis - GI - Protonix - DVT - SCD Discharge Planning Continue to monitor in the medical floor. SSI pending. Problem Qualifiers (1) ICH (intracerebral hemorrhage): Qualified Code: I61.0 - Nontraumatic subcortical hemorrhage of left cerebral hemisphere (2) Respiratory failure: Trent Garcia MD Nov 01, 2016 18:18
[2016-11-01] MEDS ORDERED: diphenhydrAMINE HCL 50 MG/ML VIAL IV PUSH ONE (21:15)
[2016-11-01] MEDS ORDERED: SODIUM CHLORID 0.9% 500 ML INJ 500 ML IV ONE (21:15)
[2016-11-01] MEDS ORDERED: DIATRIZOATE MEGLUM/DIATRIZOATE SOD 120 ML BTL (for RAD DIAG) PEG ONE (21:54)
--- NOTE | 2016-11-01 22:09 | RADRPT ---
EXAM DATE/TIME: 11/01/2016 21:43 [facility] COMPARISON: No previous studies available for comparison. INDICATIONS : PEG tube placement. MEDICAL HISTORY : Hypertension. SURGICAL HISTORY : None. ENCOUNTER: Initial ACUITY: 1 day PAIN SCORE: Non-responsive. LOCATION: abdomen. FINDINGS: Supine view of the abdomen was performed. Injection of PEG tube reveals contrast in stomach and proxi mal small bowel without evidence for leakage or obstruction. Remainder of exam unremarkable. CONCLUSION: 1. The PEG tube injection reveals no evidence for leakage or obstruction. Bishop Fulton MD on November 01, 2016 at 22:05 Board Certified Radiologist. This report was verified electronically.
[2016-11-02] VITALS (8 sets, daily range): BP systolic 97–131; BP diastolic 55–86; PULSE 84–116; RESP 16–20; TEMP 93.4–98; O2SAT 95–97
[2016-11-02] MEDS: SENNOSIDES 8.6 MG TAB GT SCH ×2 (04:14→16:59)
[2016-11-02] MEDS: INSULIN NovoLIN REGULAR SUPPLEMENTAL SCALE SQ SCH ×5 (04:16→22:35)
[2016-11-02 05:08] LABS: C. DIFF EPI 027 PRESUMPTIVE NEGATIVE (NEGATIVE); C. DIFF TOXIN PCR NEGATIVE (NEGATIVE)
[2016-11-02 05:56] LABS: AUTOMATED NEUTROPHIL # 7.9 TH/MM3 (1.8-7.7); BASOPHIL % 0.3 % (0.0-2.0); HEMATOCRIT 26.7 % (39.0-51.0); HEMO FLAGS DIFF FINAL; LYMPH % 16.6 % (9.0-44.0); LYMPHOCYTE # 1.8 TH/MM3 (1.0-4.8); MEAN CELL VOLUME 92.7 FL (80.0-100.0); MEAN CORPUSCULAR HEMOGLOBIN 31.1 PG (27.0-34.0); MEAN CORPUSCULAR HGB CONC 33.5 % (32.0-36.0); NEUT % 73.1 % (16.0-70.0); PLATELET COUNT 240 TH/MM3 (150-450); RED BLOOD COUNT 2.88 MIL/MM3 (4.50-5.90); WHITE BLOOD COUNT 10.8 TH/MM3 (4.0-11.0)
[2016-11-02] MEDS: hydrALAZINE HCL 100 MG TAB PO SCH ×3 (06:00→22:35)
[2016-11-02] MEDS: cloNIDine HCL 0.1 MG TAB PO SCH ×3 (06:09→22:35)
[2016-11-02] MEDS: FERROUS SULFATE 300 MG /5ML UDC PO SCH ×2 (08:03→22:35)
[2016-11-02] MEDS: PANTOPRAZOLE SOD 40 MG DELAYED RELEASE TAB PO SCH (08:03)
[2016-11-02] MEDS: BENEPROTEIN POWDER 1 PACK G-TUBE SCH ×6 (08:03→16:59)
[2016-11-02] MEDS: METOPROLOL TARTRATE 50 MG TAB PO SCH ×2 (08:03→22:36)
[2016-11-02] MEDS: QUEtiapine FUMARATE 25 MG TAB PO SCH ×3 (08:03→22:36)
[2016-11-02] MEDS: SODIUM CHLORIDE 0.9% FLUSH 5 ML FLUSH IV FLUSH SCH ×2 (08:04→21:00)
[2016-11-02] MEDS: amLODIPine BESYLATE 5 MG TAB PO SCH ×2 (08:04→22:35)
[2016-11-02] MEDS: SODIUM CHLORIDE 0.9% FLUSH 5 ML FLUSH IVF SCH (08:04)
[2016-11-02] MEDS: ARTIFICIAL TEARS OPTH SOLN 15 ML BTL EACH EYE SCH ×3 (08:04→16:58)
[2016-11-02] MEDS: NEOMYCIN/POLYMYXIN/BACITRACIN OINT 15 GM TUBE TOPICAL SCH ×2 (08:05→22:37)
[2016-11-02] MEDS: LISINOPRIL 10 MG TAB PO SCH ×2 (08:05→22:36)
[2016-11-02 13:22] LABS: HEMATOCRIT 24.9 % (39.0-51.0)
--- NOTE | 2016-11-02 13:31 | HHI.PR ---
Subjective Remarks Patient's sister in law at bedside and on facetime conference with [place] Sister in law upset because patient not sleeping much no reports of diarrhea afebrile Objective Vitals Vital Signs Date Time Temp Pulse Resp B/P Pulse Ox O2 Delivery O2 Flow Rate FiO2 11/02/16 12:00 97.2 91 16 114/71 97 11/02/16 10:55 97 T-piece 21 11/02/16 08:00 97.1 116 18 112/86 97 11/02/16 06:03 116 18 115/68 95 11/02/16 04:00 98.0 115 19 122/73 97 11/02/16 00:08 97.8 91 18 105/67 97 11/01/16 23:18 Room Air 11/01/16 22:08 88 17 97/55 98 11/01/16 20:45 101 17 70/51 97 11/01/16 20:37 97.3 101 16 91/52 96 11/01/16 18:13 97 21 11/01/16 16:00 97.4 71 18 136/74 97 I/O 11/01/16 11/01/16 11/01/16 11/02/16 11/02/16 11/02/16 07:00 15:00 23:00 07:00 15:00 23:00 Intake Total 813 ml 420 ml Balance 813 ml 420 ml Tube Feeding 723 ml 420 ml Tube Irrigant 90 ml # Voids 0 2 5 # Bowel Movements 0 2 Result Diagram: 11/02/16 1256 10/31/16 0803 Imaging Last Impressions Abdomen X-Ray 11/01/16 0000 Signed Impressions: Service Date/Time: Tuesday, November 01, 2016 21:43 - CONCLUSION: 1. The PEG tube injection reveals no evidence for leakage or obstruction. Bishop Fulton MD Soft Tissue Ultrasound 10/31/16 0000 Signed Impressions: Service Date/Time: Monday, October 31, 2016 20:22 - CONCLUSION: 1. Solid mass at the site of the palpable abnormality. Cross-sectional imaging could be performed for further evaluation if clinically indicated. Chaitanya Rondon MD Chest X-Ray 10/31/16 0000 Signed Impressions: Service Date/Time: Monday, October 31, 2016 18:15 - CONCLUSION: No acute disease Rakesh Strauss MD Renal Ultrasound 10/18/16 0000 Signed Impressions: Service Date/Time: Tuesday, October 18, 2016 10:53 - CONCLUSION: Small left renal cyst. Otherwise, negative. Vargas Freitas MD FACR Gastrostomy Tube Placement 09/19/16 0000 Signed Impressions: Service Date/Time: Monday, September 19, 2016 16:01 - CONCLUSION: Uncomplicated gastrostomy tube placement as above. Chaitanya Rondon MD Head CT 09/17/16 0600 Signed Impressions: Service Date/Time: Saturday, September 17, 2016 04:14 - CONCLUSION: 1. Slightly evolving left basal ganglia hemorrhage with surrounding edema and mass effect similar to September 08. Right frontal ventriculostomy tube unchanged. Right ventricular size relatively stable. Bishop Fulton MD Head Magnetic Resonance Angiography 08/27/16 0000 Signed Impressions: Service Date/Time: Saturday, August 27, 2016 16:49 - CONCLUSION: Negative MRA of the brain. Vargas Freitas MD FACR Brain MRI 08/27/16 0000 Signed Impressions: Service Date/Time: Saturday, August 27, 2016 16:49 - CONCLUSION: 1. Large thalamic hemorrhage as described above. Extensive periventricular white matter changes are noted. There is compression of the third ventricle. Ventriculostomy is seen in the right lateral ventricle. 2. Hemorrhage does extend down the white matter tracts to the level of the right cerebral peduncle. Vargas Freitas MD FACR Objective Remarks GENERAL: 61 yo male, NAD, lethargic. HEAD: Atraumatic. Normocephalic. EYES: Pupils equal and round. No scleral icterus. No injection or drainage. ENT: No nasal bleeding or discharge. Mucous membranes pink and moist. NECK: Trachea midline. No JVD. CARDIOVASCULAR: Regular rate and rhythm. RESPIRATORY: No accessory muscle use. Clear to auscultation. Breath sounds equal bilaterally. GASTROINTESTINAL: Abdomen soft, non-tender, nondistended. Hepatic and splenic margins not palpable. PEG C/D/I. there is a soft lump palpable over the right side of the right flank. No fluctuance or redness appreciated. MUSCULOSKELETAL: Extremities without clubbing, cyanosis, or edema. No obvious deformities. NEUROLOGICAL: Very lethargic and difficult to arouse. Positive for right hemiparesis. PSYCHIATRIC: unable to asses due to lethargy. Procedures PEG Medications and IVs Current Medications Medications (Trade) Dose Ordered Sig/Mc Route Start Time Stop Time Status Last Admin (NS Flush) DAILY IVF 08/27/16 09:00 10/26/16 09:00 (NS Flush) UNSCH PRN IVF 08/26/16 18:45 09/21/16 10:14 (NS Flush) 2 ml UNSCH PRN IV FLUSH 08/26/16 18:45 (NS Flush) 2 ml BID IV FLUSH 08/26/16 21:00 11/02/16 08:04 (Tylenol) 650 mg Q6H PRN PO 08/26/16 18:45 10/26/16 04:42 (Tears Naturale Opth Soln) 1 drop TID EACH EYE 08/27/16 09:00 11/02/16 12:16 (Zofran Inj) 4 mg Q6H PRN IV 08/26/16 18:45 10/20/16 03:10 (Apresoline Inj) 10 mg Q30M PRN IV PUSH 08/26/16 19:30 10/19/16 08:25 (Beneprotein Powder) 1 pack TID G-TUBE 09/07/16 18:00 11/02/16 12:16 (Pepcid) 20 mg BID NG 09/11/16 21:00 Hold 10/17/16 20:14 (Lovenox Inj) 40 mg Q24H SQ 09/24/16 14:00 Hold 11/01/16 13:57 (Neosporin Oint) 1 applic Q12HR TOPICAL 09/27/16 10:00 11/02/16 08:05 (Lopressor) 100 mg Q12HR GT 10/02/16 21:00 Hold 10/17/16 20:14 (Senokot) 17.2 mg Q12H GT 10/02/16 18:00 11/01/16 06:13 (Free Water) 400 ml Q6H PEG 10/11/16 04:00 Hold 10/17/16 22:00 (Catapres) 0.2 mg TID G-TUBE 10/15/16 13:00 Hold 10/17/16 17:26 (Lactinex) 1 tab Q12HR PEG 10/15/16 21:00 Hold 10/17/16 20:17 (D50w (Vial) Inj) 25 ml UNSCH PRN IV PUSH 10/18/16 07:30 (Glucagon Inj) 1 mg UNSCH PRN OTHER 10/18/16 07:30 (NovoLIN R SUPPLEMENTAL SCALE) 1 Q4HR SQ 10/18/16 08:00 11/02/16 12:16 (Nitroglycerin 2% Oint) 2 inch Q6HR PRN TOPICAL 10/18/16 17:45 10/19/16 11:02 (Apresoline Inj) 10 mg Q1HR PRN IV PUSH 10/18/16 17:45 (Trandate Inj) 10 mg Q1HR PRN IV PUSH 10/18/16 17:45 10/19/16 10:25 (Norvasc) 5 mg BID PO 10/19/16 21:00 11/01/16 09:01 (Beneprotein Powder) 2 pack TID G-TUBE 10/19/16 18:00 11/02/16 12:16 (Apresoline) 100 mg Q8HR PO 10/20/16 22:00 11/01/16 13:53 (Prinivil) 20 mg Q12HR PO 10/20/16 21:00 11/01/16 09:01 (Catapres) 0.1 mg Q8HR PO 10/20/16 22:00 11/02/16 06:09 (Ferrous Sulfate Liq) 300 mg BID PO 10/23/16 21:00 11/02/16 08:03 (Protonix) 40 mg DAILY PO 10/24/16 09:00 11/02/16 08:03 (Haldol Inj) 2 mg Q6H PRN IM 10/27/16 17:00 10/27/16 17:45 (Lopressor) 50 mg Q12HR PO 10/29/16 09:00 11/02/16 08:03 (SEROquel) 25 mg BID@09,12 PO 11/02/16 09:00 11/02/16 12:16 Urinary Catheter: No Date of Insertion: Oct 18, 2016 Line: Central Venous Catheter Side: Right Location: Internal, Jugular A/P Problem List: (1) ICH (intracerebral hemorrhage) ICD Code: I61.9 Status: Acute (2) Hypertensive emergency ICD Code: I16.1 Status: Resolved (3) Hypokalemia ICD Code: E87.6 Status: Resolved (4) Respiratory failure ICD Code: J96.90 Status: Chronic (5) Gabrielle-Stewart tear ICD Code: K22.6 Status: Acute Assessment and Plan 61-year-old male with left basal ganglia hemorrhage, intraventricular extension test post placement of ventriculostomy drain. Left basal ganglia intraparenchymal hemorrhage with encephalopathy -s/p Right frontal ventriculostomy placement 08/26 with neurosurgery, CT head revealed left basal ganglia intraparenchymal hemorrhage 3.42 cm with extension to lateral ventricle, midline shift 5 mm to the right. Goal systolic blood pressure less than 140. EEG 08/30: generalized slowing, no seizure activity. Drain removed 09/17/16. Continue blood pressure control. Hypertensive emergency, now controlled -Initially managed with Cardizem drip. Resolved. -Continue Norvasc 10 mg daily, hydralazine to 100 mg every 6 hours, lisinopril 20 po bid, lopressor 100 bid. catapres 0.3 bid. Controlled. Acute hypoxic and hypercarbic respiratory failure secondary to Staphylococcus pneumonia- tracheostomy in place, continue T piece. Pulmonary following, chest x-ray from 09/22/16 shows improvement, still shows atelectasis. Continue pulmonary toilet, s/p Levaquin October 06. Pulmonary following. Monitor. Patient pulled his trach out on 11/02. Patient stable room air. Okay to leave out as per pulmonology. Continue to follow recommendations. Left pinna cellulitis: Improving. Topical antibiotic. Patient already on oral Levaquin. Wound care. Pressure offloading Escherichia coli UTI: s/p treatment Failure to thrive, protein energy malnutrition: status post PEG tube placement by IR 09/19/16, continue Glucerna, tube feeds at goal. Hyperglycemia of Critical Illness-continue sliding scale with Accu-Cheks. Stable discontinue sliding scale Hypernatremia and hypokalemia: Hypernatremia resolved with free water administration. Continue free water to 400 mL every 6 hours. Repeat BMP and magnesium improved, monitor. Diarrhea: Finished Levaquin, C. difficile checked but diarrhea resolved, cont Lactinex. No leukocytosis, doubt C. difficile. Hypokalemia- Much improved, level 3.5 today. Continue to monitor BMP and replace as needed. I will give 20 meq orally once patient more awake.\ Encephalopathy: Likely Toxic due to Seroquel being administered to him for agitation. I will give Seroquel at bedtime and instructed the nurse to hold for sedation. Agitation: Patient very agitated on 11/01 pulled trach and try to pull Kern catheter. Removal catheter. Pulmonology okay to leave patient without trach. I will place the patient on Seroquel 25 mg by mouth twice a day. Consider psych consultation if there is no improvement. 11/02 Patient very lethargic. Will Dc Seroquel and give at bedtime only. Will consult psychiatry if agitation persists. Continue to restraint patient as needed. Respiratory Distress: Likely secondary to bronchial hyperactivity. Resolved after administration of IV Solu-Medrol 125 mg IV 1. solid mass: Ultrasound soft tissue showed a solid mass at the site of palpable abnormality. Will order CT abdomen to better asses. Hypernatremia: Likely secondary to dehydration. Continue free water. Labs pending. Prophylaxis - GI - Protonix - DVT - SCD Discharge Planning Continue to monitor in the medical floor. SSI pending. Problem Qualifiers (1) ICH (intracerebral hemorrhage): Qualified Code: I61.0 - Nontraumatic subcortical hemorrhage of left cerebral hemisphere (2) Respiratory failure: Trent Garcia MD Nov 02, 2016 13:31
[2016-11-02 14:51] LABS: ALKALINE PHOSPHATASE 59 U/L (45-117); ALT (GPT) 47 U/L (12-78); ANION GAP 7 MEQ/L (5-15); AST (GOT) 44 U/L (15-37); BICARBONATE 28.2 MEQ/L (21.0-32.0); BLOOD UREA NITROGEN 83 MG/DL (7-18); CHLORIDE 118 MEQ/L (98-107); GLOMERULAR FILTRATION RATE 80 ML/MIN (>89); MAGNESIUM 2.7 MG/DL (1.5-2.5); SODIUM (NA) 153 MEQ/L (136-145); TOTAL BILIRUBIN ADULT 0.3 MG/DL (0.2-1.0)
[2016-11-02 14:56] LABS: POTASSIUM 4.3 MEQ/L (3.5-5.1)
[2016-11-02 15:16] LABS: AUTOMATED NEUTROPHIL # 4.5 TH/MM3 (1.8-7.7); BASOPHIL # 0.1 TH/MM3 (0-0.2); BASOPHIL % 0.8 % (0.0-2.0); EOSINOPHIL % 0.3 % (0.0-4.0); HEMATOCRIT 23.3 % (39.0-51.0); HEMO FLAGS DIFF FINAL; LYMPH % 26.1 % (9.0-44.0); LYMPHOCYTE # 1.9 TH/MM3 (1.0-4.8); MEAN CELL VOLUME 92.3 FL (80.0-100.0); MEAN CORPUSCULAR HEMOGLOBIN 31.6 PG (27.0-34.0); MEAN CORPUSCULAR HGB CONC 34.2 % (32.0-36.0); MONO % 10.2 % (0.0-8.0); NEUT % 62.6 % (16.0-70.0); PLATELET COUNT 218 TH/MM3 (150-450); RED BLOOD COUNT 2.53 MIL/MM3 (4.50-5.90); RED CELL DISTRIBUTION WIDTH 14.2 % (11.6-17.2); WHITE BLOOD COUNT 7.2 TH/MM3 (4.0-11.0)
--- NOTE | 2016-11-02 17:20 | RADRPT ---
EXAM DATE/TIME: 11/02/2016 16:41 [place] COMPARISON: No previous studies available for comparison. INDICATIONS : Evaluate for mass. ORAL CONTRAST: No oral contrast ingested. RADIATION DOSE: 12.41 CTDIvol (mGy) MEDICAL HISTORY : Hypertension. SURGICAL HISTORY : Non-responsive. ENCOUNTER: Initial ACUITY: 1 day PAIN SCALE: Non-responsive LOCATION: Bilateral abdomen TECHNIQUE: Volumetric scanning of the abdomen and pelvis was performed. Using automated exposure control and ad justment of the mA and/or kV according to patient size, radiation dose was kept as low as reasonably achievable to obtain optimal diagnostic quality images. FINDINGS: Palpable abnormality right flank correlates with a subcutaneous lipoma measuring up to 11.3 x 9.8 x 3 cm. Lung bases demonstrate some dependent atelectasis and calcified granuloma left lower lobe. No acute findings in the liver, spleen, adrenals, kidneys or pancreas. Calcified gallstone in gallbla dder. Gastrostomy present. No bowel obstruction. No free air or free fluid. Appendix is normal and fills wi th contrast. Trace air in the bladder. Trace subcutaneous air in anterior abdominal wall probably fro m subcutaneous injection. CONCLUSION: 1. 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 2. Calcified gallstone without biliary ductal dilatation. 3. Moderate coronary calcifications. 4. No bowel obstruction, free fluid or free air. No discrete mass or adenopathy in the abdomen or pel vis. 5. Gastrostomy present. Bishop Fulton MD on November 02, 2016 at 17:11 Board Certified Radiologist. This report was verified electronically.
[2016-11-02 19:41] LABS: HEMATOCRIT 24.9 % (39.0-51.0)
[2016-11-03] VITALS (9 sets, daily range): BP systolic 104–139; BP diastolic 61–79; PULSE 86–114; RESP 18–24; TEMP 97.6–99.7; O2SAT 94–97
[2016-11-03 01:00] LABS: HEMATOCRIT 22.2 % (39.0-51.0)
[2016-11-03] MEDS ORDERED: SODIUM CHLOR 0.9% 250 ML INJ 250 ML IV ONE (01:45)
[2016-11-03] MEDS: INSULIN NovoLIN REGULAR SUPPLEMENTAL SCALE SQ SCH ×6 (04:00→20:00)
[2016-11-03 04:22] LABS: HEMATOCRIT 24.3 % (39.0-51.0); MEAN CELL VOLUME 92.4 FL (80.0-100.0); MEAN CORPUSCULAR HEMOGLOBIN 31.3 PG (27.0-34.0); MEAN CORPUSCULAR HGB CONC 33.9 % (32.0-36.0); PLATELET COUNT 254 TH/MM3 (150-450); RED BLOOD COUNT 2.64 MIL/MM3 (4.50-5.90); RED CELL DISTRIBUTION WIDTH 13.9 % (11.6-17.2); REVIEW FLAG FINAL; WHITE BLOOD COUNT 8.3 TH/MM3 (4.0-11.0)
[2016-11-03 05:22] LABS: BICARBONATE 30.8 MEQ/L (21.0-32.0); POTASSIUM 3.9 MEQ/L (3.5-5.1)
[2016-11-03] MEDS: SENNOSIDES 8.6 MG TAB GT SCH ×2 (06:00→17:36)
[2016-11-03] MEDS: hydrALAZINE HCL 100 MG TAB PO SCH ×3 (06:05→21:51)
[2016-11-03] MEDS: cloNIDine HCL 0.1 MG TAB PO SCH ×3 (06:05→21:51)
[2016-11-03] MEDS: SODIUM CHLORIDE 0.9% FLUSH 5 ML FLUSH IV FLUSH SCH ×2 (09:53→21:00)
[2016-11-03] MEDS: ARTIFICIAL TEARS OPTH SOLN 15 ML BTL EACH EYE SCH ×3 (09:53→17:36)
[2016-11-03] MEDS: BENEPROTEIN POWDER 1 PACK G-TUBE SCH ×6 (09:53→17:36)
[2016-11-03] MEDS: PANTOPRAZOLE SOD 40 MG DELAYED RELEASE TAB PO SCH (09:54)
[2016-11-03] MEDS: SODIUM CHLORIDE 0.9% FLUSH 5 ML FLUSH IVF SCH (09:54)
[2016-11-03] MEDS: NEOMYCIN/POLYMYXIN/BACITRACIN OINT 15 GM TUBE TOPICAL SCH ×2 (09:54→21:53)
[2016-11-03] MEDS: METOPROLOL TARTRATE 50 MG TAB PO SCH ×2 (09:54→21:52)
[2016-11-03] MEDS: amLODIPine BESYLATE 5 MG TAB PO SCH ×2 (09:54→21:52)
[2016-11-03] MEDS: LISINOPRIL 10 MG TAB PO SCH ×2 (09:54→21:52)
[2016-11-03] MEDS: FREE WATER PEG SCH ×3 (09:54→21:53)
[2016-11-03] MEDS: FERROUS SULFATE 300 MG /5ML UDC PO SCH ×2 (09:54→21:51)
--- NOTE | 2016-11-03 11:28 | HHI.GIFU ---
Subjective Remarks Reconsulted for anemia/hemoccult positive stool. Pt resting in bed in no distress. No obvious active bleeding. Tolerating TF. Shakes head no when asked if he was in pain. (Wilma Putnam) Objective Vitals I&O Vital Signs Date Time Temp Pulse Resp B/P Pulse Ox O2 Delivery O2 Flow Rate FiO2 11/03/16 10:28 Room Air 11/03/16 07:45 98.2 114 20 139/79 97 11/03/16 06:02 18 129/75 97 11/03/16 04:00 97.6 105 24 120/71 95 11/03/16 03:58 Room Air 11/03/16 02:33 Room Air 11/03/16 00:00 97.6 86 18 104/61 96 11/02/16 22:30 Room Air 11/02/16 20:00 Room Air 11/02/16 20:00 93.4 111 20 131/81 96 11/02/16 16:00 96.1 84 16 126/74 97 11/02/16 12:00 97.2 91 16 114/71 97 I/O 11/02/16 11/02/16 11/02/16 11/03/16 11/03/16 11/03/16 07:00 15:00 23:00 07:00 15:00 23:00 Intake Total 1042 ml Balance 1042 ml Tube Feeding 842 ml Other 200 ml # Voids 5 1 # Bowel Movements 2 1 Laboratory Laboratory Tests Test 11/02/16 11/02/16 11/02/16 11/02/16 12:56 14:04 15:06 19:00 Hemoglobin 8.3 8.0 8.3 Hematocrit 24.9 23.3 24.9 Sodium Level 153 Potassium Level 4.3 Chloride Level 118 Carbon Dioxide Level 28.2 Anion Gap 7 Blood Urea Nitrogen 83 Creatinine 0.96 Estimat Glomerular Filtration 80 Rate Random Glucose 167 Calcium Level 9.3 Phosphorus Level 2.5 Magnesium Level 2.7 Total Bilirubin 0.3 Aspartate Amino Transf 44 (AST/SGOT) Alanine Aminotransferase 47 (ALT/SGPT) Alkaline Phosphatase 59 Total Protein 6.3 Albumin 2.6 White Blood Count 7.2 Red Blood Count 2.53 Mean Corpuscular Volume 92.3 Mean Corpuscular Hemoglobin 31.6 Mean Corpuscular Hemoglobin 34.2 Concent Red Cell Distribution Width 14.2 Platelet Count 218 Mean Platelet Volume 12.6 Neutrophils (%) (Auto) 62.6 Lymphocytes (%) (Auto) 26.1 Monocytes (%) (Auto) 10.2 Eosinophils (%) (Auto) 0.3 Basophils (%) (Auto) 0.8 Neutrophils # (Auto) 4.5 Lymphocytes # (Auto) 1.9 Monocytes # (Auto) 0.7 Eosinophils # (Auto) 0.0 Basophils # (Auto) 0.1 CBC Comment DIFF FINAL Differential Comment Test 11/03/16 11/03/16 00:46 04:07 Hemoglobin 7.4 8.3 Hematocrit 22.2 24.3 White Blood Count 8.3 Red Blood Count 2.64 Mean Corpuscular Volume 92.4 Mean Corpuscular Hemoglobin 31.3 Mean Corpuscular Hemoglobin 33.9 Concent Red Cell Distribution Width 13.9 Platelet Count 254 Mean Platelet Volume 12.3 Sodium Level 158 Potassium Level 3.9 Chloride Level 121 Carbon Dioxide Level 30.8 Anion Gap 6 Blood Urea Nitrogen 57 Creatinine 0.89 Estimat Glomerular Filtration 87 Rate Random Glucose 157 Calcium Level 9.2 Blood Type A POSITIVE Antibody Screen NEGATIVE Crossmatch Leukocyte-Reduced Red Blood Cells Blood Bank Comment Date/Time Procedure Status Source Growth 11/02/16 03:19 Stool Occult Blood ([facility]) - Final Complete Stool Stool HEMOCCULT POSITIVE Imaging Last Impressions Abdomen/Pelvis CT 11/02/16 0000 Signed Impressions: Service Date/Time: Wednesday, November 02, 2016 16:41 - CONCLUSION: 1. 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 2. Calcified gallstone without biliary ductal dilatation. 3. Moderate coronary calcifications. 4. No bowel obstruction, free fluid or free air. No discrete mass or adenopathy in the abdomen or pelvis. 5. Gastrostomy present. Bishop Fulton MD Abdomen X-Ray 11/01/16 0000 Signed Impressions: Service Date/Time: Tuesday, November 01, 2016 21:43 - CONCLUSION: 1. The PEG tube injection reveals no evidence for leakage or obstruction. Bishop Fulton MD Soft Tissue Ultrasound 10/31/16 0000 Signed Impressions: Service Date/Time: Monday, October 31, 2016 20:22 - CONCLUSION: 1. Solid mass at the site of the palpable abnormality. Cross-sectional imaging could be performed for further evaluation if clinically indicated. Chaitanya Rondon MD Chest X-Ray 10/31/16 0000 Signed Impressions: Service Date/Time: Monday, October 31, 2016 18:15 - CONCLUSION: No acute disease Rakesh Strauss MD Renal Ultrasound 10/18/16 0000 Signed Impressions: Service Date/Time: Tuesday, October 18, 2016 10:53 - CONCLUSION: Small left renal cyst. Otherwise, negative. Vargas Freitas MD FACR Gastrostomy Tube Placement 09/19/16 0000 Signed Impressions: Service Date/Time: Monday, September 19, 2016 16:01 - CONCLUSION: Uncomplicated gastrostomy tube placement as above. Chaitanya Rondon MD Head CT 09/17/16 0600 Signed Impressions: Service Date/Time: Saturday, September 17, 2016 04:14 - CONCLUSION: 1. Slightly evolving left basal ganglia hemorrhage with surrounding edema and mass effect similar to September 08. Right frontal ventriculostomy tube unchanged. Right ventricular size relatively stable. Bishop Fulton MD Head Magnetic Resonance Angiography 08/27/16 0000 Signed Impressions: Service Date/Time: Saturday, August 27, 2016 16:49 - CONCLUSION: Negative MRA of the brain. Vargas Freitas MD FACR Brain MRI 08/27/16 0000 Signed Impressions: Service Date/Time: Saturday, August 27, 2016 16:49 - CONCLUSION: 1. Large thalamic hemorrhage as described above. Extensive periventricular white matter changes are noted. There is compression of the third ventricle. Ventriculostomy is seen in the right lateral ventricle. 2. Hemorrhage does extend down the white matter tracts to the level of the right cerebral peduncle. Vargas Freitas MD FACR Physical Exam HEENT: Normocephalic; atraumatic; no jaundice. CHEST: Resp even, diminished bases. CARDIAC: RRR ABDOMEN: Soft, nondistended, nontender; no hepatosplenomegaly; bowel sounds are present in all four quadrants. PEG tube site without redness or swelling EXTREMITIES: No clubbing, cyanosis, or edema. SKIN: Normal; no rash; no jaundice. 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 Nods appropriately today. (Wilma Putnam) Assessment and Plan Plan ASSESSMENT: - Reconsulted for anemia with hemoccult positive stool. Pt was seen earlier this month for GI Bleeding with hematemesis. He was evaluated at that time with EGD (10/18/16)---> 1. G tube in place 2. Old blood in stomach 3. Gabrielle-Stewart tear in the distal esophagus, 4. Ablation performed using Heater probe. Good results 5. Normal duodenal mucosa 6. Retroflexed views revealed no abnormalities. Pt has not had any further obvious bleeding and he is tolerating his TF. HH has remained stable. 8..3. Will plan for egd in am to follow up on Gabreille Stewart Tear. PPI. - Anemia, acute blood loss. S/P 2 units PRBC. HH stable .10/10.3.. 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 - Protein energy malnutrition. S/P PEG tube by IR on 09/19/16. Dust Mop Maker recommends Glucerna 1.5 @ 60mls/hr. - Hypertension, Hypernatremia per primary PLAN: - Plan for egd in am - Obtain consents - NPO after MN - Lovenox is on hold - PPI - Dust Mop Maker recommends Glucerna 1.5 at 60cc/hr - Supportive care - Further recommendations to follow based on results of above - Pt seen and examined by Dr. Guzman and myself and this note is written on her behalf (Wilma Putnam) Physician Comments seen, examined agree with above (Radha Guzman MD) Wilma Putnam Nov 03, 2016 11:13 Radha Guzman MD Nov 03, 2016 16:59
[2016-11-03 11:30] LABS: BICARBONATE 30.8 MEQ/L (21.0-32.0); POTASSIUM 3.7 MEQ/L (3.5-5.1)
[2016-11-03] MEDS: RESP: ALBUTEROL 2.5 MG/IPRATROPIUM 0.5 MG NEB (PRN) INH (13:25)
--- NOTE | 2016-11-03 16:44 | HHI.PR ---
Subjective Remarks Patient is awake able to shake head and answer non verbal stable vital signs sodium elevated Objective Vitals Vital Signs Date Time Temp Pulse Resp B/P Pulse Ox O2 Delivery O2 Flow Rate FiO2 11/03/16 14:58 99.7 114 20 127/72 97 11/03/16 13:26 94 11/03/16 11:35 99.5 99 20 131/79 97 11/03/16 10:28 Room Air 11/03/16 07:45 98.2 114 20 139/79 97 11/03/16 06:02 18 129/75 97 11/03/16 04:00 97.6 105 24 120/71 95 11/03/16 03:58 Room Air 11/03/16 02:33 Room Air 11/03/16 00:00 97.6 86 18 104/61 96 11/02/16 22:30 Room Air 11/02/16 20:00 Room Air 11/02/16 20:00 93.4 111 20 131/81 96 I/O 11/02/16 11/02/16 11/02/16 11/03/16 11/03/16 11/03/16 07:00 15:00 23:00 07:00 15:00 23:00 Intake Total 1042 ml Balance 1042 ml Tube Feeding 842 ml Other 200 ml # Voids 5 1 3 # Bowel Movements 2 1 0 Result Diagram: 11/03/16 0407 11/03/16 1010 Imaging Last Impressions Abdomen/Pelvis CT 11/02/16 0000 Signed Impressions: Service Date/Time: Wednesday, November 02, 2016 16:41 - CONCLUSION: 1. 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 2. Calcified gallstone without biliary ductal dilatation. 3. Moderate coronary calcifications. 4. No bowel obstruction, free fluid or free air. No discrete mass or adenopathy in the abdomen or pelvis. 5. Gastrostomy present. Bishop Fulton MD Abdomen X-Ray 11/01/16 0000 Signed Impressions: Service Date/Time: Tuesday, November 01, 2016 21:43 - CONCLUSION: 1. The PEG tube injection reveals no evidence for leakage or obstruction. Bishop Fulton MD Soft Tissue Ultrasound 10/31/16 0000 Signed Impressions: Service Date/Time: Monday, October 31, 2016 20:22 - CONCLUSION: 1. Solid mass at the site of the palpable abnormality. Cross-sectional imaging could be performed for further evaluation if clinically indicated. Chaitanya Rondon MD Chest X-Ray 10/31/16 0000 Signed Impressions: Service Date/Time: Monday, October 31, 2016 18:15 - CONCLUSION: No acute disease Rakesh Strauss MD Renal Ultrasound 10/18/16 0000 Signed Impressions: Service Date/Time: Tuesday, October 18, 2016 10:53 - CONCLUSION: Small left renal cyst. Otherwise, negative. Vargas Freitas MD FACR Gastrostomy Tube Placement 09/19/16 0000 Signed Impressions: Service Date/Time: Monday, September 19, 2016 16:01 - CONCLUSION: Uncomplicated gastrostomy tube placement as above. Chaitanya Rondon MD Head CT 09/17/16 0600 Signed Impressions: Service Date/Time: Saturday, September 17, 2016 04:14 - CONCLUSION: 1. Slightly evolving left basal ganglia hemorrhage with surrounding edema and mass effect similar to September 08. Right frontal ventriculostomy tube unchanged. Right ventricular size relatively stable. Bishop Fulton MD Head Magnetic Resonance Angiography 08/27/16 0000 Signed Impressions: Service Date/Time: Saturday, August 27, 2016 16:49 - CONCLUSION: Negative MRA of the brain. Vargas Freitas MD FACR Brain MRI 08/27/16 0000 Signed Impressions: Service Date/Time: Saturday, August 27, 2016 16:49 - CONCLUSION: 1. Large thalamic hemorrhage as described above. Extensive periventricular white matter changes are noted. There is compression of the third ventricle. Ventriculostomy is seen in the right lateral ventricle. 2. Hemorrhage does extend down the white matter tracts to the level of the right cerebral peduncle. Vargas Freitas MD FACR Objective Remarks GENERAL: 61 yo male, NAD, lethargic. HEAD: Atraumatic. Normocephalic. EYES: Pupils equal and round. No scleral icterus. No injection or drainage. ENT: No nasal bleeding or discharge. Mucous membranes pink and moist. NECK: Trachea midline. No JVD. CARDIOVASCULAR: Regular rate and rhythm. RESPIRATORY: No accessory muscle use. Clear to auscultation. Breath sounds equal bilaterally. GASTROINTESTINAL: Abdomen soft, non-tender, nondistended. Hepatic and splenic margins not palpable. PEG C/D/I. there is a soft lump palpable over the right side of the right flank. No fluctuance or redness appreciated. MUSCULOSKELETAL: Extremities without clubbing, cyanosis, or edema. No obvious deformities. NEUROLOGICAL: Awake and alert, nonverbal. Positive for right hemiparesis. Seems to have right neglect. Number of some intelligible words. PSYCHIATRIC: unable to asses due to lethargy. Procedures PEG Medications and IVs Current Medications Medications (Trade) Dose Ordered Sig/Mc Route Start Time Stop Time Status Last Admin (NS Flush) DAILY IVF 08/27/16 09:00 10/26/16 09:00 (NS Flush) UNSCH PRN IVF 08/26/16 18:45 09/21/16 10:14 (NS Flush) 2 ml UNSCH PRN IV FLUSH 08/26/16 18:45 (NS Flush) 2 ml BID IV FLUSH 08/26/16 21:00 11/03/16 09:53 (Tylenol) 650 mg Q6H PRN PO 08/26/16 18:45 10/26/16 04:42 (Tears Naturale Opth Soln) 1 drop TID EACH EYE 08/27/16 09:00 11/03/16 12:56 (Zofran Inj) 4 mg Q6H PRN IV 08/26/16 18:45 10/20/16 03:10 (Apresoline Inj) 10 mg Q30M PRN IV PUSH 08/26/16 19:30 10/19/16 08:25 (Beneprotein Powder) 1 pack TID G-TUBE 09/07/16 18:00 11/03/16 12:56 (Pepcid) 20 mg BID NG 09/11/16 21:00 Hold 10/17/16 20:14 (Lovenox Inj) 40 mg Q24H SQ 09/24/16 14:00 Hold 11/01/16 13:57 (Neosporin Oint) 1 applic Q12HR TOPICAL 09/27/16 10:00 11/03/16 09:54 (Lopressor) 100 mg Q12HR GT 10/02/16 21:00 Hold 10/17/16 20:14 (Senokot) 17.2 mg Q12H GT 10/02/16 18:00 11/01/16 06:13 (Free Water) 400 ml Q6H PEG 10/11/16 04:00 11/03/16 09:54 (Catapres) 0.2 mg TID G-TUBE 10/15/16 13:00 Hold 10/17/16 17:26 (Lactinex) 1 tab Q12HR PEG 10/15/16 21:00 Hold 10/17/16 20:17 (D50w (Vial) Inj) 25 ml UNSCH PRN IV PUSH 10/18/16 07:30 (Glucagon Inj) 1 mg UNSCH PRN OTHER 10/18/16 07:30 (Nitroglycerin 2% Oint) 2 inch Q6HR PRN TOPICAL 10/18/16 17:45 10/19/16 11:02 (Apresoline Inj) 10 mg Q1HR PRN IV PUSH 10/18/16 17:45 (Trandate Inj) 10 mg Q1HR PRN IV PUSH 10/18/16 17:45 10/19/16 10:25 (Norvasc) 5 mg BID PO 10/19/16 21:00 11/03/16 09:54 (Beneprotein Powder) 2 pack TID G-TUBE 10/19/16 18:00 11/03/16 12:56 (Apresoline) 100 mg Q8HR PO 10/20/16 22:00 11/03/16 12:56 (Prinivil) 20 mg Q12HR PO 10/20/16 21:00 11/03/16 09:54 (Catapres) 0.1 mg Q8HR PO 10/20/16 22:00 11/03/16 12:56 (Ferrous Sulfate Liq) 300 mg BID PO 10/23/16 21:00 11/03/16 09:54 (Protonix) 40 mg DAILY PO 10/24/16 09:00 11/03/16 09:54 (Haldol Inj) 2 mg Q6H PRN IM 10/27/16 17:00 10/27/16 17:45 (Lopressor) 50 mg Q12HR PO 10/29/16 09:00 11/03/16 09:54 Quetiapine Fumarate 25 mg 25 mg HS PO 11/02/16 21:00 11/02/16 22:36 (NS 250 ml Inj) 250 ml @ 15 mls/hr ONCE ONCE IV 11/03/16 01:45 11/03/16 18:24 11/03/16 04:12 Insulin Human Regular 1 1 Q4HR SQ 11/03/16 16:00 (Sodium Chloride 23.4% Inj/Sterile Water For Inj) 1,009.625 ml @ 100 mls/hr Q10H6M IV 11/03/16 17:00 Urinary Catheter: No Date of Insertion: Oct 18, 2016 Line: Central Venous Catheter Side: Right Location: Internal, Jugular A/P Problem List: (1) ICH (intracerebral hemorrhage) ICD Code: I61.9 Status: Acute (2) Hypertensive emergency ICD Code: I16.1 Status: Resolved (3) Hypokalemia ICD Code: E87.6 Status: Resolved (4) Respiratory failure ICD Code: J96.90 Status: Chronic (5) Gabrielle-Stewart tear ICD Code: K22.6 Status: Resolved Assessment and Plan 61-year-old male with left basal ganglia hemorrhage, intraventricular extension test post placement of ventriculostomy drain. Left basal ganglia intraparenchymal hemorrhage with encephalopathy -s/p Right frontal ventriculostomy placement 08/26 with neurosurgery, CT head revealed left basal ganglia intraparenchymal hemorrhage 3.42 cm with extension to lateral ventricle, midline shift 5 mm to the right. Goal systolic blood pressure less than 140. EEG 08/30: generalized slowing, no seizure activity. Drain removed 09/17/16. Continue blood pressure control. Hypertensive emergency, now controlled -Initially managed with Cardizem drip. Resolved. -Continue Norvasc 10 mg daily, hydralazine to 100 mg every 6 hours, lisinopril 20 po bid, lopressor 100 bid. catapres 0.3 bid. Controlled. Acute hypoxic and hypercarbic respiratory failure secondary to Staphylococcus pneumonia- tracheostomy in place, continue T piece. Pulmonary following, chest x-ray from 09/22/16 shows improvement, still shows atelectasis. Continue pulmonary toilet, s/p Levaquin October 06. Pulmonary following. Monitor. Patient pulled his trach out on 11/02. Patient stable room air. Okay to leave out as per pulmonology. Continue to follow recommendations. Left pinna cellulitis: Improving. Topical antibiotic. Patient already on oral Levaquin. Wound care. Pressure offloading Escherichia coli UTI: s/p treatment Failure to thrive, protein energy malnutrition: status post PEG tube placement by IR 09/19/16, continue Glucerna, tube feeds at goal. Hyperglycemia of Critical Illness-continue sliding scale with Accu-Cheks. Stable discontinue sliding scale Hypernatremia and hypokalemia: Hypernatremia resolved with free water administration. Continue free water to 400 mL every 6 hours. Repeat BMP and magnesium improved, monitor. Diarrhea: Finished Levaquin, C. difficile checked but diarrhea resolved, cont Lactinex. No leukocytosis, doubt C. difficile. Hypokalemia- Much improved, level 3.5 today. Continue to monitor BMP and replace as needed. I will give 20 meq orally once patient more awake.\ Encephalopathy: Likely Toxic due to Seroquel being administered to him for agitation. I will give Seroquel at bedtime and instructed the nurse to hold for sedation. 11/03 resolved, patient awake, Continue Seroquel at bedtime. Agitation: Patient very agitated on 11/01 pulled trach and try to pull Kern catheter. Removal catheter. Pulmonology okay to leave patient without trach. I will place the patient on Seroquel 25 mg by mouth twice a day. Consider psych consultation if there is no improvement. 11/02 Patient very lethargic. Will Dc Seroquel and give at bedtime only. Will consult psychiatry if agitation persists. Continue to restraint patient as needed. 11/03 Agitation much improved on Seroquel at bedtime. Respiratory Distress: Likely secondary to bronchial hyperactivity. Resolved after administration of IV Solu-Medrol 125 mg IV 1. solid mass: Ultrasound soft tissue showed a solid mass at the site of palpable abnormality. Will order CT abdomen to better asses. Hypernatremia: Likely secondary to dehydration. will increase free water via PEG. I will also start / NS. Sodium should not be corrected more than 10 points in the first 24 hours. Check BMP later at 9 PM and 3 AM. RN instructed to call M.D. to report sodium level. Prophylaxis - GI - Protonix - DVT - SCD Discharge Planning Continue to monitor in the medical floor. SSI pending. Problem Qualifiers (1) ICH (intracerebral hemorrhage): Qualified Code: I61.0 - Nontraumatic subcortical hemorrhage of left cerebral hemisphere (2) Respiratory failure: Trent Garcia MD Nov 03, 2016 16:44
[2016-11-03] MEDS: SODIUM CHLORIDE 23.4% INJ 38.5 MEQ in WATER STERILE FOR INJ 1,000 ML IV SCH (17:36)
[2016-11-03] MEDS: QUEtiapine FUMARATE 25 MG TAB PO SCH (21:51)
[2016-11-03 22:04] LABS: BICARBONATE 33.7 MEQ/L (21.0-32.0); POTASSIUM 3.7 MEQ/L (3.5-5.1)
[2016-11-04] VITALS (11 sets, daily range): BP systolic 89–170; BP diastolic 54–93; PULSE 73–118; RESP 18–21; TEMP 96.8–98.2; O2SAT 94–98
[2016-11-04] MEDS: SODIUM CHLORIDE 23.4% INJ 38.5 MEQ in WATER STERILE FOR INJ 1,000 ML IV SCH ×3 (03:04→23:45)
[2016-11-04] MEDS: INSULIN NovoLIN REGULAR SUPPLEMENTAL SCALE SQ SCH ×6 (04:00→20:00)
[2016-11-04] MEDS: FREE WATER PEG SCH ×5 (04:00→22:00)
[2016-11-04] MEDS: cloNIDine HCL 0.1 MG TAB PO SCH ×3 (06:27→22:45)
[2016-11-04] MEDS: hydrALAZINE HCL 100 MG TAB PO SCH ×3 (06:27→22:45)
[2016-11-04] MEDS: SENNOSIDES 8.6 MG TAB GT SCH ×2 (06:27→17:27)
[2016-11-04] MEDS: BENEPROTEIN POWDER 1 PACK G-TUBE SCH ×8 (09:00→17:27)
[2016-11-04] MEDS: METOPROLOL TARTRATE 50 MG TAB PO SCH ×2 (09:04→21:39)
[2016-11-04] MEDS: FERROUS SULFATE 300 MG /5ML UDC PO SCH ×2 (09:04→21:38)
[2016-11-04] MEDS: LISINOPRIL 10 MG TAB PO SCH ×2 (09:04→21:39)
[2016-11-04] MEDS: PANTOPRAZOLE SOD 40 MG DELAYED RELEASE TAB PO SCH (09:04)
[2016-11-04] MEDS: amLODIPine BESYLATE 5 MG TAB PO SCH ×2 (09:04→21:39)
[2016-11-04] MEDS: SODIUM CHLORIDE 0.9% FLUSH 5 ML FLUSH IVF SCH (09:05)
[2016-11-04] MEDS: ARTIFICIAL TEARS OPTH SOLN 15 ML BTL EACH EYE SCH ×3 (09:05→17:27)
[2016-11-04] MEDS: NEOMYCIN/POLYMYXIN/BACITRACIN OINT 15 GM TUBE TOPICAL SCH ×2 (09:05→22:42)
[2016-11-04] MEDS: SODIUM CHLORIDE 0.9% FLUSH 5 ML FLUSH IV FLUSH SCH ×2 (09:05→21:00)
[2016-11-04] MEDS ORDERED: DO NOT ADM ANY ANTICOAGULANT DRUGS PRN (13:40)
--- NOTE | 2016-11-04 14:27 | GIPROC ---
[facility] [address] [facility]. [facility], [address] EGD PROCEDURE REPORT EXAM DATE: 11/04/2016 PATIENT NAME: Rafy Ruiz MR #: [id number] BIRTHDATE: 1955 ATTENDING: Radha Guzman MD ORDER #: [id number] GENERAL PASSENGER AGENT: Katja Sarabia and Brent Bell STATUS: inpatient INDICATIONS: The patient is a 61 yr old male here for an EGD due to anemia, bleeding PROCEDURE PERFORMED: EGD, diagnostic MEDICATIONS: None and Per Anesthesia. TOPICAL ANESTHETIC: none CONSENT: The patient understands the risks and benefits of the procedure and understands that these risks include, but are not limited to: sedation, allergic reaction, infection, perforation and/or bleeding. Alternative means of evaluation and treatment include, among others: physical exam, x-rays, and/or surgical intervention. The patient elects to proceed with this endoscopic procedure. medical equipment was checked for proper function. Hand hygiene and appropriate measures for infection prevention was taken. After the risks, benefits and alternatives of the procedure were thoroughly explained, Informed consent was verified, confirmed and timeout was successfully executed by the treatment team. The patient was anesthetized with topical anesthesia and the Pentax [id number] endoscope was introduced through the mouth and advanced to the second portion of the duodenum. Retroflexed views revealed a hiatal hernia The gastroscope was then slowly withdrawn and removed. Peg in stomach, no active bleeding. ADVERSE EVENTS: There were no complications. IMPRESSIONS: 1. Peg in stomach, no active bleeding 2. Retroflexed views revealed a hiatal hernia RECOMMENDATIONS: 1. Anti-reflux regimen 2. Restart tf PATIENT CONDITION: stable DISPOSITION: Inpatient REPEAT EXAM: Return as needed for EGD Radha Guzman MD eSigned: Radha Guzman MD 11/04/2016 2:26 PM cc:
[2016-11-04] MEDS ORDERED: PROPOFOL 200 MG/20 ML AMP IV ONE (16:07)
--- NOTE | 2016-11-04 17:36 | HHI.PR ---
Subjective Remarks Patient is no verbal, but has some understanding. I am working him up further for Diabetes Insipidus as a possible cause of his hypernatremia, given ICH. Objective Vital Signs Date Time Temp Pulse Resp B/P Pulse Ox O2 Delivery O2 Flow Rate FiO2 11/04/16 15:33 96.8 81 18 131/75 94 11/04/16 14:35 84 18 103/68 96 11/04/16 14:25 82 18 98/66 96 11/04/16 14:17 98.5 93 18 111/65 100 11/04/16 11:30 97.0 78 19 130/75 97 11/04/16 10:35 95 21 11/04/16 09:04 83 127/74 11/04/16 08:10 Room Air 11/04/16 07:40 97.3 86 20 110/67 96 11/04/16 06:15 97.3 87 20 118/72 97 11/04/16 02:00 73 110/69 11/04/16 01:15 98.2 81 20 89/54 98 11/03/16 21:06 97.8 100 18 123/72 96 11/03/16 20:00 96 Room Air 11/03/16 19:59 97 21 I/O 11/03/16 11/03/16 11/03/16 11/04/16 11/04/16 11/04/16 07:00 15:00 23:00 07:00 15:00 23:00 Intake Total 1880 ml 100 ml Balance 1880 ml 100 ml Tube Feeding 1480 ml Other 400 ml 100 ml # Voids 3 1 1 # Bowel Movements 0 0 Result Diagram: 11/03/167 11/03/167 Objective Remarks GENERAL: (nonverbal), NAD SKIN: Warm and dry. HEAD: Normocephalic. EYES: No scleral icterus. No injection or drainage. NECK: Supple, trachea midline. No JVD or lymphadenopathy. CARDIOVASCULAR: Regular rate and rhythm without murmurs, gallops, or rubs. RESPIRATORY: Breath sounds equal bilaterally. No accessory muscle use. GASTROINTESTINAL: Abdomen soft, non-tender, nondistended. MUSCULOSKELETAL: No cyanosis, or edema. BACK: Nontender without obvious deformity. No CVA tenderness. NEURO: Right hemiplegia with flacidity at arm/leg Medications and IVs Administered Medications Medications (Trade) Dose Ordered Sig/Mc Route PRN Reason Start Time Stop Time Status Last Admin Dose Admin IV Flush (NS Flush) DAILY IVF 08/27/16 09:00 10/26/16 09:00 IV Flush (NS Flush) UNSCH PRN IVF SEE PROTOCOL 08/26/16 18:45 09/21/16 10:14 IV Flush (NS Flush) 2 ml BID IV FLUSH 08/26/16 21:00 11/04/16 09:05 Acetaminophen (Tylenol) 650 mg Q6H PRN PO PAIN 1-10 AND/OR FEVER >101F 08/26/16 18:45 10/26/16 04:42 Artificial Tears (Tears Naturale Opth Soln) 1 drop TID EACH EYE 08/27/16 09:00 11/04/16 17:27 Ondansetron HCl (Zofran Inj) 4 mg Q6H PRN IV NAUSEA OR VOMITING 08/26/16 18:45 10/20/16 03:10 Hydralazine HCl (Apresoline Inj) 10 mg Q30M PRN IV PUSH SBP>160, DBP>90 08/26/16 19:30 10/19/16 08:25 Protein (Beneprotein Powder) 1 pack TID G-TUBE 09/07/16 18:00 11/04/16 17:27 Famotidine (Pepcid) 20 mg BID NG 09/11/16 21:00 Hold 10/17/16 20:14 Enoxaparin Sodium (Lovenox Inj) 40 mg Q24H SQ 09/24/16 14:00 Hold 11/01/16 13:57 Neomycin/ Polymyxin/ Bacitracin (Neosporin Oint) 1 applic Q12HR TOPICAL 09/27/16 10:00 11/04/16 09:05 Metoprolol Tartrate (Lopressor) 100 mg Q12HR GT 10/02/16 21:00 Hold 10/17/16 20:14 Sennosides (Senokot) 17.2 mg Q12H GT 10/02/16 18:00 11/04/16 17:27 Water (Free Water) 400 ml Q6H PEG 10/11/16 04:00 11/04/16 16:30 Clonidine (Catapres) 0.2 mg TID G-TUBE 10/15/16 13:00 Hold 10/17/16 17:26 Lactobacillus Acidophilus (Lactinex) 1 tab Q12HR PEG 10/15/16 21:00 Hold 10/17/16 20:17 Nitroglycerin (Nitroglycerin 2% Oint) 2 inch Q6HR PRN TOPICAL SBP>160, DBP>90 10/18/16 17:45 10/19/16 11:02 Labetalol HCl (Trandate Inj) 10 mg Q1HR PRN IV PUSH SBP>160, DBP>90, HR>65 10/18/16 17:45 10/19/16 10:25 Amlodipine Besylate (Norvasc) 5 mg BID PO 10/19/16 21:00 11/04/16 09:04 Protein (Beneprotein Powder) 2 pack TID G-TUBE 10/19/16 18:00 11/04/16 17:27 Hydralazine HCl (Apresoline) 100 mg Q8HR PO 10/20/16 22:00 11/04/16 06:27 Lisinopril (Prinivil) 20 mg Q12HR PO 10/20/16 21:00 11/04/16 09:04 Clonidine (Catapres) 0.1 mg Q8HR PO 10/20/16 22:00 11/04/16 06:27 Ferrous Sulfate (Ferrous Sulfate Liq) 300 mg BID PO 10/23/16 21:00 11/04/16 09:04 Pantoprazole Sodium (Protonix) 40 mg DAILY PO 10/24/16 09:00 11/04/16 09:04 Haloperidol Lactate (Haldol Inj) 2 mg Q6H PRN IM agitation 10/27/16 17:00 10/27/16 17:45 Metoprolol Tartrate (Lopressor) 50 mg Q12HR PO 10/29/16 09:00 11/04/16 09:04 Quetiapine Fumarate (SEROquel) 25 mg HS PO 11/02/16 21:00 11/03/16 21:51 Insulin Human Regular 1 1 Q4HR SQ 11/03/16 16:00 11/03/16 17:36 Sodium Chloride/ Sterile Water (Sodium Chloride 23.4% Inj/Sterile Water For Inj) 1,009.625 ml @ 100 mls/hr Q10H6M IV 11/03/16 17:00 11/04/16 03:04 A/P Problem List: (1) Hypokalemia ICD Code: E87.6 Assessment & Plan: Follow and replace potassium as needed (2) Global aphasia ICD Code: R47.02 Assessment & Plan: Supportive care (3) Debility ICD Code: R53.81 Assessment & Plan: Chronic related to ICH (4) ICH (intracerebral hemorrhage) ICD Code: I61.9 Assessment & Plan: Chronic Debility terminologist placement will be needed Insurance coverage pending (5) Hypernatremia ICD Code: E87.0 Assessment & Plan: ADH, Serum Osmolality, Urine Osmolality, Serum Sodium, Urine Sodium Evaluating for ICH related Diabetes Insipidus Problem Qualifiers (1) ICH (intracerebral hemorrhage): Qualified Code: I61.0 - Nontraumatic subcortical hemorrhage of left cerebral hemisphere Brendan Warren MD Nov 04, 2016 17:36
[2016-11-04] MEDS: QUEtiapine FUMARATE 25 MG TAB PO SCH (21:38)
[2016-11-05] VITALS (9 sets, daily range): BP systolic 104–142; BP diastolic 63–74; PULSE 86–105; RESP 19–22; TEMP 95.1–99.6; O2SAT 93–97
[2016-11-05] MEDS: RESP: ALBUTEROL 2.5 MG/IPRATROPIUM 0.5 MG NEB (PRN) INH (01:38)
[2016-11-05] MEDS: INSULIN NovoLIN REGULAR SUPPLEMENTAL SCALE SQ SCH ×6 (04:00→20:00)
[2016-11-05] MEDS: FREE WATER PEG SCH ×4 (04:00→21:01)
[2016-11-05] MEDS: SENNOSIDES 8.6 MG TAB GT SCH ×3 (06:00→18:59)
[2016-11-05] MEDS: hydrALAZINE HCL 100 MG TAB PO SCH ×2 (06:57→14:26)
[2016-11-05] MEDS: cloNIDine HCL 0.1 MG TAB PO SCH ×2 (06:57→14:26)
[2016-11-05] MEDS: SODIUM CHLORIDE 0.9% FLUSH 5 ML FLUSH IV FLUSH SCH ×2 (09:00→21:00)
[2016-11-05] MEDS: SODIUM CHLORIDE 0.9% FLUSH 5 ML FLUSH IVF SCH (09:00)
[2016-11-05] MEDS: BENEPROTEIN POWDER 1 PACK G-TUBE SCH ×6 (09:00→18:00)
[2016-11-05] MEDS: METOPROLOL TARTRATE 50 MG TAB PO SCH ×2 (09:08→20:59)
[2016-11-05] MEDS: PANTOPRAZOLE SOD 40 MG DELAYED RELEASE TAB PO SCH (09:09)
[2016-11-05] MEDS: LISINOPRIL 10 MG TAB PO SCH ×2 (09:09→20:59)
[2016-11-05] MEDS: amLODIPine BESYLATE 5 MG TAB PO SCH ×2 (09:09→20:58)
[2016-11-05] MEDS: FERROUS SULFATE 300 MG /5ML UDC PO SCH ×2 (09:09→20:58)
[2016-11-05] MEDS: SODIUM CHLORIDE 23.4% INJ 38.5 MEQ in WATER STERILE FOR INJ 1,000 ML IV SCH (09:24)
[2016-11-05] MEDS: ARTIFICIAL TEARS OPTH SOLN 15 ML BTL EACH EYE SCH ×2 (14:36→19:00)
[2016-11-05] MEDS: NEOMYCIN/POLYMYXIN/BACITRACIN OINT 15 GM TUBE TOPICAL SCH ×2 (14:39→21:00)
--- NOTE | 2016-11-05 18:01 | HHI.PR ---
Subjective Remarks Patient is no verbal, but has some understanding. Serum Osmolality is high. ADH, Urine Osmolality, and Urine Sodium are pending. Objective Vital Signs Date Time Temp Pulse Resp B/P Pulse Ox O2 Delivery O2 Flow Rate FiO2 11/05/16 16:15 98.3 89 22 113/63 93 11/05/16 12:34 97 21 11/05/16 11:00 95.1 86 20 121/67 97 11/05/16 07:50 99.6 99 20 129/71 97 11/05/16 04:57 97.7 105 22 125/74 96 11/05/16 01:38 96 11/05/16 00:12 97.7 97 20 104/70 97 11/04/16 21:44 97.2 118 21 170/93 96 11/04/16 20:00 Room Air 11/04/16 18:40 94 Trach Collar 21 I/O 11/04/16 11/04/16 11/04/16 11/05/16 11/05/16 11/05/16 07:00 15:00 23:00 07:00 15:00 23:00 Intake Total 1880 ml 100 ml Output Total 725 ml 500 ml Balance 1880 ml 100 ml -725 ml -500 ml Tube Feeding 1480 ml Other 400 ml 100 ml Output Urine Total 725 ml 500 ml # Voids 1 1 4 # Bowel Movements 0 0 2 2 Result Diagram: 11/03/167 11/03/162116 Objective Remarks GENERAL: (nonverbal), NAD SKIN: Warm and dry. HEAD: Normocephalic. EYES: No scleral icterus. No injection or drainage. NECK: Supple, trachea midline. No JVD or lymphadenopathy. CARDIOVASCULAR: Regular rate and rhythm without murmurs, gallops, or rubs. RESPIRATORY: Breath sounds equal bilaterally. No accessory muscle use. GASTROINTESTINAL: Abdomen soft, non-tender, nondistended. MUSCULOSKELETAL: No cyanosis, or edema. BACK: Nontender without obvious deformity. No CVA tenderness. NEURO: Right hemiplegia with flacidity at arm/leg A/P Problem List: (1) Hypokalemia ICD Code: E87.6 Assessment & Plan: Follow and replace potassium as needed (2) Global aphasia ICD Code: R47.02 Assessment & Plan: Supportive care (3) Debility ICD Code: R53.81 Assessment & Plan: Chronic related to ICH He will need terminologist care (4) ICH (intracerebral hemorrhage) ICD Code: I61.9 Assessment & Plan: Chronic Debility intermediate placement will be needed Insurance coverage pending (5) Hypernatremia ICD Code: E87.0 Assessment & Plan: ADH, Urine Osmolality, Serum Sodium, Urine Sodium Serum Osmolality is high Evaluating for ICH related Diabetes Insipidus Problem Qualifiers (1) ICH (intracerebral hemorrhage): Qualified Code: I61.0 - Nontraumatic subcortical hemorrhage of left cerebral hemisphere Brendan Warren MD Nov 05, 2016 18:01
[2016-11-05 20:08] LABS: BICARBONATE 29.2 MEQ/L (21.0-32.0); POTASSIUM 3.3 MEQ/L (3.5-5.1)
[2016-11-05] MEDS: QUEtiapine FUMARATE 25 MG TAB PO SCH (20:59)
[2016-11-05] MEDS ORDERED: POTASSIUM CHLORIDE 20 MEQ PWD PACKET G-TUBE ONE (22:15)
[2016-11-06] VITALS (7 sets, daily range): BP systolic 102–126; BP diastolic 51–98; PULSE 81–118; RESP 18–22; TEMP 96.9–99.5; O2SAT 94–98
[2016-11-06] MEDS: hydrALAZINE HCL 100 MG TAB PO SCH ×4 (00:10→21:37)
[2016-11-06] MEDS: cloNIDine HCL 0.1 MG TAB PO SCH ×4 (00:10→21:36)
[2016-11-06] MEDS: FREE WATER PEG SCH ×4 (04:00→21:39)
[2016-11-06] MEDS: INSULIN NovoLIN REGULAR SUPPLEMENTAL SCALE SQ SCH ×6 (04:00→20:00)
[2016-11-06] MEDS: SENNOSIDES 8.6 MG TAB GT SCH ×2 (05:28→17:29)
[2016-11-06] MEDS: BENEPROTEIN POWDER 1 PACK G-TUBE SCH ×6 (09:00→17:30)
[2016-11-06] MEDS: SODIUM CHLORIDE 0.9% FLUSH 5 ML FLUSH IVF SCH (09:00)
[2016-11-06] MEDS: ARTIFICIAL TEARS OPTH SOLN 15 ML BTL EACH EYE SCH ×3 (09:00→17:29)
[2016-11-06] MEDS: LISINOPRIL 10 MG TAB PO SCH ×2 (09:00→21:37)
[2016-11-06] MEDS: SODIUM CHLORIDE 0.9% FLUSH 5 ML FLUSH IV FLUSH SCH ×2 (09:00→21:00)
[2016-11-06] MEDS: METOPROLOL TARTRATE 50 MG TAB PO SCH ×2 (09:00→21:38)
[2016-11-06] MEDS: amLODIPine BESYLATE 5 MG TAB PO SCH ×2 (09:00→21:38)
--- NOTE | 2016-11-06 10:22 | HHI.PR ---
Subjective Remarks Serum Osmolality has normalized today. Patient is no verbal, but has some understanding. ADH, Urine Osmolality, and Urine Sodium are pending. Objective Vital Signs Date Time Temp Pulse Resp B/P Pulse Ox O2 Delivery O2 Flow Rate FiO2 11/06/16 08:02 97.5 81 18 102/56 96 11/06/16 04:35 99.2 82 18 118/63 94 11/06/16 00:15 99.5 85 20 110/66 96 11/05/16 20:15 99.1 88 19 142/72 96 11/05/16 19:30 Room Air 11/05/16 18:17 93 21 11/05/16 16:15 98.3 89 22 113/63 93 11/05/16 12:34 97 21 11/05/16 11:00 95.1 86 20 121/67 97 I/O 11/05/16 11/05/16 11/05/16 11/06/16 11/06/16 11/06/16 07:00 15:00 23:00 07:00 15:00 23:00 Intake Total 1610 ml 0 ml Output Total 500 ml 0 ml Balance -500 ml 1610 ml 0 ml Intake Oral 0 ml 0 ml Oral Supplement 1610 ml Output Urine Total 500 ml 0 ml # Voids 1 4 3 # Bowel Movements 2 2 0 0 Result Diagram: 11/03/167 11/05/161937 Objective Remarks GENERAL: (nonverbal), NAD SKIN: Warm and dry. HEAD: Normocephalic. EYES: No scleral icterus. No injection or drainage. NECK: Supple, trachea midline. No JVD or lymphadenopathy. CARDIOVASCULAR: Regular rate and rhythm without murmurs, gallops, or rubs. RESPIRATORY: Breath sounds equal bilaterally. No accessory muscle use. GASTROINTESTINAL: Abdomen soft, non-tender, nondistended. MUSCULOSKELETAL: No cyanosis, or edema. BACK: Nontender without obvious deformity. No CVA tenderness. NEURO: Right hemiplegia with flacidity at arm/leg Medications and IVs Administered Medications Medications (Trade) Dose Ordered Sig/Mc Route PRN Reason Start Time Stop Time Status Last Admin Dose Admin IV Flush (NS Flush) DAILY IVF 08/27/16 09:00 10/26/16 09:00 IV Flush (NS Flush) UNSCH PRN IVF SEE PROTOCOL 08/26/16 18:45 3/5/17 10:14 IV Flush (NS Flush) 2 ml BID IV FLUSH 08/26/16 21:00 11/05/16 21:00 Acetaminophen (Tylenol) 650 mg Q6H PRN PO PAIN 1-10 AND/OR FEVER >101F 08/26/16 18:45 10/26/16 04:42 Artificial Tears (Tears Naturale Opth Soln) 1 drop TID EACH EYE 08/27/16 09:00 11/05/16 19:00 Ondansetron HCl (Zofran Inj) 4 mg Q6H PRN IV NAUSEA OR VOMITING 08/26/16 18:45 10/20/16 03:10 Hydralazine HCl (Apresoline Inj) 10 mg Q30M PRN IV PUSH SBP>160, DBP>90 08/26/16 19:30 10/19/16 08:25 Protein (Beneprotein Powder) 1 pack TID G-TUBE 09/07/16 18:00 11/05/16 18:00 Famotidine (Pepcid) 20 mg BID NG 09/11/16 21:00 Hold 10/17/16 20:14 Enoxaparin Sodium (Lovenox Inj) 40 mg Q24H SQ 09/24/16 14:00 Hold 11/01/16 13:57 Neomycin/ Polymyxin/ Bacitracin (Neosporin Oint) 1 applic Q12HR TOPICAL 09/27/16 10:00 11/05/16 21:00 Metoprolol Tartrate (Lopressor) 100 mg Q12HR GT 10/02/16 21:00 Hold 10/17/16 20:14 Sennosides (Senokot) 17.2 mg Q12H GT 10/02/16 18:00 11/04/16 17:27 Clonidine (Catapres) 0.2 mg TID G-TUBE 10/15/16 13:00 Hold 10/17/16 17:26 Lactobacillus Acidophilus (Lactinex) 1 tab Q12HR PEG 10/15/16 21:00 Hold 10/17/16 20:17 Nitroglycerin (Nitroglycerin 2% Oint) 2 inch Q6HR PRN TOPICAL SBP>160, DBP>90 10/18/16 17:45 10/19/16 11:02 Labetalol HCl (Trandate Inj) 10 mg Q1HR PRN IV PUSH SBP>160, DBP>90, HR>65 10/18/16 17:45 10/19/16 10:25 Amlodipine Besylate (Norvasc) 5 mg BID PO 10/19/16 21:00 11/05/16 20:58 Protein (Beneprotein Powder) 2 pack TID G-TUBE 10/19/16 18:00 11/05/16 18:00 Hydralazine HCl (Apresoline) 100 mg Q8HR PO 10/20/16 22:00 11/06/16 05:29 Lisinopril (Prinivil) 20 mg Q12HR PO 10/20/16 21:00 11/05/16 20:59 Clonidine (Catapres) 0.1 mg Q8HR PO 10/20/16 22:00 11/06/16 05:29 Ferrous Sulfate (Ferrous Sulfate Liq) 300 mg BID PO 10/23/16 21:00 11/05/16 20:58 Pantoprazole Sodium (Protonix) 40 mg DAILY PO 10/24/16 09:00 11/05/16 09:09 Haloperidol Lactate (Haldol Inj) 2 mg Q6H PRN IM agitation 10/27/16 17:00 10/27/16 17:45 Metoprolol Tartrate (Lopressor) 50 mg Q12HR PO 10/29/16 09:00 11/05/16 20:59 Quetiapine Fumarate (SEROquel) 25 mg HS PO 11/02/16 21:00 11/05/16 20:59 Insulin Human Regular (NovoLIN R SUPPLEMENTAL SCALE) 1 Q4HR SQ 11/03/16 16:00 11/03/16 17:36 Water (Free Water) 250 ml Q6H PEG 11/05/16 04:00 11/06/16 04:00 A/P Problem List: (1) Hypokalemia ICD Code: E87.6 Assessment & Plan: Follow and replace potassium as needed (2) Global aphasia ICD Code: R47.02 Assessment & Plan: Supportive care (3) Debility ICD Code: R53.81 Assessment & Plan: Chronic related to ICH He 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
--- NOTE | 2016-11-06 10:25 | HHI.GIFU ---
Subjective Remarks Resting in bed. Tolerating TF. No active bleeding. Denies abdominal pain. ( Wilma Putnam) Objective Vitals I&O Vital Signs Date Time Temp Pulse Resp B/P Pulse Ox O2 Delivery O2 Flow Rate FiO2 11/06/16 08:02 97.5 81 18 102/56 96 11/06/16 04:35 99.2 82 18 118/63 94 11/06/16 00:15 99.5 85 20 110/66 96 11/05/16 20:15 99.1 88 19 142/72 96 11/05/16 19:30 Room Air 11/05/16 18:17 93 21 11/05/16 16:15 98.3 89 22 113/63 93 11/05/16 12:34 97 21 11/05/16 11:00 95.1 86 20 121/67 97 I/O 11/05/16 11/05/16 11/05/16 11/06/16 11/06/16 11/06/16 07:00 15:00 23:00 07:00 15:00 23:00 Intake Total 1610 ml 0 ml Output Total 500 ml 0 ml Balance -500 ml 1610 ml 0 ml Intake Oral 0 ml 0 ml Oral Supplement 1610 ml Output Urine Total 500 ml 0 ml # Voids 1 4 3 # Bowel Movements 2 2 0 0 Laboratory Laboratory Tests Test 11/05/16 19:38 Sodium Level 145 Potassium Level 3.3 Chloride Level 108 Carbon Dioxide Level 29.2 Anion Gap 8 Blood Urea Nitrogen 21 Creatinine 0.63 Estimat Glomerular Filtration 129 Rate Random Glucose 97 Calcium Level 9.4 Date/Time Procedure Status Source Growth 11/02/16 03:19 Stool Occult Blood ([facility]) - Final Complete Stool Stool HEMOCCULT POSITIVE Imaging Last Impressions Abdomen/Pelvis CT 11/02/16 0000 Signed Impressions: Service Date/Time: Wednesday, November 02, 2016 16:41 - CONCLUSION: 1. 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 2. Calcified gallstone without biliary ductal dilatation. 3. Moderate coronary calcifications. 4. No bowel obstruction, free fluid or free air. No discrete mass or adenopathy in the abdomen or pelvis. 5. Gastrostomy present. Bishop Fulton MD Abdomen X-Ray 11/01/16 0000 Signed Impressions: Service Date/Time: Tuesday, November 01, 2016 21:43 - CONCLUSION: 1. The PEG tube injection reveals no evidence for leakage or obstruction. Bishop Fulton MD Soft Tissue Ultrasound 10/31/16 0000 Signed Impressions: Service Date/Time: Monday, October 31, 2016 20:22 - CONCLUSION: 1. Solid mass at the site of the palpable abnormality. Cross-sectional imaging could be performed for further evaluation if clinically indicated. Chaitanya Rondon MD Chest X-Ray 10/31/16 0000 Signed Impressions: Service Date/Time: Monday, October 31, 2016 18:15 - CONCLUSION: No acute disease Rakesh Strauss MD Renal Ultrasound 10/18/16 0000 Signed Impressions: Service Date/Time: Tuesday, October 18, 2016 10:53 - CONCLUSION: Small left renal cyst. Otherwise, negative. Vargas Freitas MD FACR Gastrostomy Tube Placement 09/19/16 0000 Signed Impressions: Service Date/Time: Monday, September 19, 2016 16:01 - CONCLUSION: Uncomplicated gastrostomy tube placement as above. Chaitanya Rondon MD Head CT 09/17/16 0600 Signed Impressions: Service Date/Time: Saturday, September 17, 2016 04:14 - CONCLUSION: 1. Slightly evolving left basal ganglia hemorrhage with surrounding edema and mass effect similar to September 08. Right frontal ventriculostomy tube unchanged. Right ventricular size relatively stable. Bishop Fulton MD Head Magnetic Resonance Angiography 08/27/16 0000 Signed Impressions: Service Date/Time: Saturday, August 27, 2016 16:49 - CONCLUSION: Negative MRA of the brain. Vargas Freitas MD FACR Brain MRI 08/27/16 0000 Signed Impressions: Service Date/Time: Saturday, August 27, 2016 16:49 - CONCLUSION: 1. Large thalamic hemorrhage as described above. Extensive periventricular white matter changes are noted. There is compression of the third ventricle. Ventriculostomy is seen in the right lateral ventricle. 2. Hemorrhage does extend down the white matter tracts to the level of the right cerebral peduncle. Vargas Freitas MD FACR Physical Exam HEENT: Normocephalic; atraumatic; no jaundice. CHEST: Resp even, diminished bases. CARDIAC: RRR ABDOMEN: Soft, nondistended, nontender; no hepatosplenomegaly; bowel sounds are present in all four quadrants. PEG tube site without redness or swelling EXTREMITIES: No clubbing, cyanosis, or edema. SKIN: Normal; no rash; no jaundice. DEPUTY GENERAL COUNSEL: Awake, right side flaccid. Nods appropriately today. (Wilma Putnam) Assessment and Plan Plan ASSESSMENT: - Anemia with hemoccult positive stool. Pt was seen earlier this month for GI Bleeding with hematemesis. He was evaluated at that time with EGD (10/18/16)---> 1. G tube in place 2. Old blood in stomach 3. Gabrielle-Stewart tear in the distal esophagus, 4. Ablation performed using Heater probe. Good results 5. Normal duodenal mucosa 6. Retroflexed views revealed no abnormalities. Pt has not had any further obvious bleeding and he is tolerating his TF. Rpt EGD (11/04/16)-----> 1. Peg in stomach, no active bleeding 2. Retroflexed views revealed a hiatal hernia. HH Stable 8.3/24.3. Tolerating TF. Denies pain. - Gabrielle Stewart tear. RESOLVED. 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 - Protein energy malnutrition. S/P PEG tube by IR on 09/19/16. Natural Resources Specialist recommends Glucerna 1.5 @ 60mls/hr. - Hypertension, Hypernatremia per primary PLAN: - Glucerna 1.5 at 60cc/hr - PPI - Monitor HH - GI will sign off, please reconsult as needed - Pt seen and examined by Dr. Guzman and myself and this note is written on her behalf (Wilma Putnam) Physician Comments agree with above (Radha Guzman MD) Wilma Putnam Nov 06, 2016 10:25 Radha Guzman MD Nov 06, 2016 15:37
[2016-11-06] MEDS: PANTOPRAZOLE SOD 40 MG DELAYED RELEASE TAB PO SCH (10:50)
[2016-11-06] MEDS: FERROUS SULFATE 300 MG /5ML UDC PO SCH ×2 (10:50→21:38)
[2016-11-06] MEDS: NEOMYCIN/POLYMYXIN/BACITRACIN OINT 15 GM TUBE TOPICAL SCH ×2 (10:53→21:00)
[2016-11-06] MEDS: QUEtiapine FUMARATE 25 MG TAB PO SCH (21:36)
[2016-11-07] VITALS: BP 122/83; PULSE 136; RESP 24; TEMP 99.4; O2SAT 96
[2016-11-07] MEDS: INSULIN NovoLIN REGULAR SUPPLEMENTAL SCALE SQ SCH
[2016-11-07] MEDS ORDERED: CALCIUM CHLORIDE 10% SOLN 1 GRAM/10 ML SYR IV ONE (02:29)
[2016-11-07] MEDS ORDERED: SODIUM BICARBONATE 8.4% INJ 50 MEQ/50 ML SYR IV ONE (02:29)
[2016-11-07] MEDS ORDERED: EPINEPHrine HCL (1:10,000) 1 MG/10 ML SYRINGE IV ONE ×2 (02:29)
--- NOTE | 2016-11-07 03:16 | HHI.PR ---
Addendum to Inpatient Note Addendum Reason: Additional Documentation Additional Information S: Resident team heard overhead page for [facility] on [facility] fifth floor at 00:55. Resident team arrived at [facility] at 1 AM to find RonniT nurse running code, respiratory therapy attempting intubation, cardiac compressions going on, RNs attempting IV access. Per nurse report, code was called at 00:53 AM, compressions were started at 00:55 AM. Patient was then ventilated with bag valve mask. At 00:57, [facility] nurse arrived. At 01:00, airway was suctioned, no IV access, rhythm strip showed asystole. At 01:05, pulse check showed asystole, no shock advised. At 01:08, still no pulse. At 01:09, right femoral line attempted by Dr. Douglas, , which was unsuccessful. At 01:11, epi was administered through ET tube. At 01:14, rhythm strip continued to show asystole, left femoral line was placed successfully. At 01:15, epinephrine was administered along with bicarbonate. At 01:16, bicarbonate was administered along with calcium. At 01:17 , patient still had no pulse, another epi was administered. At 01:19, bicarbonate was administered, normal saline was bolused, epi was administered. At 01:22, patient was shocked for a rhythm strip showing V. fib; epi was also administered at that time. At 01:23, bicarbonate was administered. At 01:25, epi was administered. At 01:26, patient was shocked again for V. fib. At 01:28, 150 mg of amiodarone and epinephrine were administered. At 01:29, patient was shocked again for V. fib. At 01:30, asystole was noted on the rhythm strip and the [facility] was ended. No opiates or anticoagulants administered per EMR. O: Vitals: No central pulses appreciated. After intubation, patient had bilateral breath sounds. Gen.: Bright red blood was coming up through ET tube. Dark, sticky black stool was noted from the patient's rectum by the end of the code. HEENT: Near the end of the code, patient was noted to have fixed, dilated pupils and no corneal reflexes. Cardiovascular: No pulse Respiratory: Patient intubated, manually ventilated with bilateral breath sounds present after intubation Extremities: Cold extremities A/P: Patient is a 61-year-old man who was admitted for intracerebral hemorrhage , hypertensive emergency, hypokalemia, respiratory failure who had repair of Gabrielle-Stewart tear on 10/18 was found to be in cardiac arrest with bright red blood from mouth and later with dark black blood per rectum. Patient was coded for 35 minutes without return of spontaneous circulation or palpable pulses. Patient found to have fixed dilated pupils without corneal reflexes before ending the code. Spoke with patient's [id number], Gisel Reis, to explain that the patient had . Differential diagnosis includes hypovolemia, exsanguination/anemia from GI bleed or intracranial bleed, electrolyte abnormalities, thrombosis, coronary or perhaps massive PE given blood through ET tube. Patient seen and examined with Dr. Wilkins and Dr. Douglas. Frederick Mosley MD R1 Nov 07, 2016 03:15
--- NOTE | 2016-12-03 15:33 | HHI.DS ---
Discharge Summary Admission Date Aug 26, 2016 at 17:33 Discharge Date: Nov 07, 2016 Admitting Diagnosis Left basal ganglia bleed (1) ICH (intracerebral hemorrhage) ICD Code: I61.9 (2) Hypertensive emergency ICD Code: I16.1 Diagnosis: Principal (3) Hypokalemia ICD Code: E87.6 Diagnosis: Principal (4) Respiratory failure ICD Code: J96.90 Diagnosis: Principal (5) Gabrielle-Stewart tear ICD Code: K22.6 Diagnosis: Principal Procedures PEG Brief History - From Admission This is a middle-aged male. Date of admission 08/26/2016. Past medical history is unknown. His real name is Rafy Ruiz. Haritha Ruiz [phone] is the health proxy. Per ED report, patient was acute onset 1 hour prior to admission of right upper and lower extremity weakness and dysarthria. Upon presentation to the ED, patient was quite hypertensive and had decreased responsiveness. Patient was intubated by ED physician. [address] head revealed a left intraparenchymal hemorrhage/basal ganglia with extension to the lateral ventricle with a 5 mm shift to the right. Neurosurgery was consulted/Dr. Croft no intervention at present time. Your estimate the patient. Laboratories reveal potassium 2.8. Currently on Cardene drip at 15 mg an hour. Hospital Course Mr. Ruiz is a 61 year old male. He was admitted with an ICH and had a repair of a Gabrielle-Stewart tear. His ICH caused him significant debility and he had been nonverbal and confined to the bed due to lack of basic motor functions. I had him on my service 11/04/16 through 11/06/16. His debility was stable and penitentiary care options were being arranged. At 0:55 on 11/07/16 a code regan was called. Per the code note he had what appeared to be an exsanguination via a recurrence of his Gabrielle-Stewart tear. Resuscitation measures were attempted, but unfortunately failed. He was pronounced , at about 01:30 on 11/07/16 after resuscitations attempts failed. Pt Condition on Discharge: Deteriorating () Discharge Disposition: Trnsfr to Other Facility ( Home) Discharge Time: <= 30 minutes Brendan Warren MD December 03, 2016 15:33
== END 2016-11-07 02:30 | disposition expired | DRG 3 ==
LOC: NEPE 15:33 → NEDA 17:33 → EDBD 17:33 → N03A 19:31 → N03B 09-15 07:45 → N04A 09-20 21:55 → N03B 10-18 02:53 → N05B 10-22 16:14
PROVIDERS: ADMIT Internal Medicine Critical Care Medicine; ATTEND Hospitalist
PROC: 009630Z Drainage of Cerebral Ventricle with Drainage Device, Percutaneous Approach (ICD-10-PCS; principal; 2016-08-26)
PROC: 0BH17EZ Insertion of Endotracheal Airway into Trachea, Via Natural or Artificial Opening (ICD-10-PCS; 2016-08-26)
PROC: 0CDWXZ0 Extraction of Upper Tooth, Single, External Approach (ICD-10-PCS; 2016-08-26)
PROC: 5A1955Z Respiratory Ventilation, Greater than 96 Consecutive Hours (ICD-10-PCS; 2016-08-26)
PROC: 0B113F4 Bypass Trachea to Cutaneous with Tracheostomy Device, Percutaneous Approach (ICD-10-PCS; 2016-09-04)
PROC: 5A1955Z Respiratory Ventilation, Greater than 96 Consecutive Hours (ICD-10-PCS; 2016-09-04)
PROC: 0BJ08ZZ Inspection of Tracheobronchial Tree, Via Natural or Artificial Opening Endoscopic (ICD-10-PCS; 2016-09-04)
PROC: 0DH63UZ Insertion of Feeding Device into Stomach, Percutaneous Approach (ICD-10-PCS; 2016-09-19)
PROC: 0D538ZZ Destruction of Lower Esophagus, Via Natural or Artificial Opening Endoscopic (ICD-10-PCS; 2016-10-18)
PROC: 30233N1 Transfusion of Nonautologous Red Blood Cells into Peripheral Vein, Percutaneous Approach (ICD-10-PCS; 2016-10-18)
PROC: 02HV33Z Insertion of Infusion Device into Superior Vena Cava, Percutaneous Approach (ICD-10-PCS; 2016-10-18)
PROC: 0DJ08ZZ Inspection of Upper Intestinal Tract, Via Natural or Artificial Opening Endoscopic (ICD-10-PCS; 2016-11-04)
DX: I61.5 Nontraumatic intracerebral hemorrhage, intraventricular (principal); R57.8 Other shock; J15.211 Pneumonia due to Methicillin susceptible Staphylococcus aureus; G92 Toxic encephalopathy; E87.0 Hyperosmolality and hypernatremia; G91.9 Hydrocephalus, unspecified; K22.6 Gastro-esophageal laceration-hemorrhage syndrome; J96.01 Acute respiratory failure with hypoxia; J96.02 Acute respiratory failure with hypercapnia; S02.5XXA Fracture of tooth (traumatic), initial encounter for closed fracture; J98.11 Atelectasis; K92.0 Hematemesis; G81.01 Flaccid hemiplegia affecting right dominant side; E44.1 Mild protein-calorie malnutrition; N39.0 Urinary tract infection, site not specified; D62 Acute posthemorrhagic anemia; I16.1 Hypertensive emergency; R47.01 Aphasia; K92.1 Melena; R13.10 Dysphagia, unspecified; I10 Essential (primary) hypertension; E87.6 Hypokalemia; R29.722 NIHSS score 22; R73.9 Hyperglycemia, unspecified; E87.70 Fluid overload, unspecified; B96.20 Unspecified Escherichia coli [E. coli] as the cause of diseases classified elsewhere; Z68.20 Body mass index [BMI] 20.0-20.9, adult; H60.12 Cellulitis of left external ear; R62.7 Adult failure to thrive; K44.9 Diaphragmatic hernia without obstruction or gangrene; I95.9 Hypotension, unspecified; R19.7 Diarrhea, unspecified; E86.0 Dehydration; T43.595A Adverse effect of other antipsychotics and neuroleptics, initial encounter
CPT/HCPCS: 31500; 31600; 31624; 36430; 36556; 36600; 36620; 49440; 61210; 70450; 70544; 70551; 71010; 74000; 74176; 76775; 76937; 76942; 76999; 80048; 80053; 80069; 80202; 80307; 80320; 81001; 82272; 82435; 82550; 82565; 82570; 82805; 82947; 82948; 83036; 83605; 83735; 83930; 84100; 84132; 84295; 84300; 84484; 84520; 84588; 85007; 85014; 85018; 85025; 85027; 85384; 85610; 85730; 86403; 86850; 86900; 86901; 86920; 87040; 87070; 87077; 87081; 87086; 87147; 87186; 87205; 87493; 87641; 92950; 93005; 93308; 94002; 94003; 94640; 94664; 94762; 94770; 95819; 96365; 99152; 99153; A7520; C9113; J0171; J0330; J0360; J0461; J0692; J0696; J1200; J1610; J1630; J1650; J1815; J1940; J1953; J2060; J2250; J2270; J2405; J2543; J2930; J3010; J3370; J3480; J7030; J7040; J7050; J7608; P9016; P9612; Q9963; Q9967